=== PATIENT | male | born 1955 | race Caucasian/White ===

== ENCOUNTER → 2017-08-04 14:53 | Outpatient (CLI) | payer MEDICARE, MEDICAID, SELFPAY ==
--- NOTE | 2017-08-04 15:01 | XR_ITS ---
XR shoulder RT min 2V HISTORY: ITS.REASON: RT SHOULDER PAIN X 1 MONTH, NO INJURY ORDERING PHYSICIAN: Kenji James MD PATIENT AGE: 61 years COMPARISON: None FINDINGS: No fracture or dislocation. No lytic or blastic change. There is normal mineralization. There are mild osteoarthritic changes of the acromioclavicular joint. The glenohumeral joint has an unremarkable appearance. IMPRESSION: Mild osteoarthritic change of the acromioclavicular joint otherwise negative right shoulder
== END ==
PROVIDERS: PCP Family Medicine; Visit Provider Family Medicine
DX: M25.511 Pain in right shoulder (principal)
CPT/HCPCS: 73030

== ENCOUNTER 2017-12-22 15:59 | Inpatient (IN) ==
--- NOTE | 2017-12-22 16:09 | Emergency Department Note ---
ED Disposition Clinical Impression: COPD exacerbation Respiratory failure with hypoxia and hypercapnia Qualifiers: Chronicity: acute Qualified Code(s): J96.01 - Acute respiratory failure with hypoxia; J96.02 - Acute respiratory failure with hypercapnia Community acquired pneumonia Qualifiers: Laterality: unspecified laterality Qualified Code(s): J18.9 - Pneumonia, unspecified organism Disposition: Still a Patient Condition on Discharge: Fair Referrals: Kenji James MD [Primary Care Provider] - - Critical Care Critical Care Time: Yes Attestation: On , the high probability of a clinically significant, sudden or life threatening deterioration of the following system(s) required my full and direct attention, intervention and personal management. The time I documented below is in addition to time spent performing reported procedures but includes the following listed in this critical care notation. Total Critical Care Time: 35 Vital system(s) involved:: Respiratory Failure My critical care processes included: Assessment & monitoring of V/S, Initial and Re-exams, Data Review/Interpretation, Coordinating Care, Medication Orders and management, Documentation Medical Decision Making - Lanre Inquiry Pt receiving controlled substance: No Vital Signs: 12/22/17 16:01 12/22/17 16:27 12/22/17 16:54 Temperature 97.9 F Temperature Source Oral Pulse Rate [Right Radial] 67 72 Respiratory Rate 32 H 18 Blood Pressure [Right Arm] 129/44 129/44 Blood Pressure Mean [Right Arm] 72 72 Blood Pressure Source [Right Arm] Automatic Cuff Automatic Cuff Blood Pressure Position [Right Arm] Sitting Sitting 02 Sat by Pulse Oximetry 67 L 97 93 L Oxygen Delivery Method Nasal Cannula Non-Rebreather Oxygen Flow Rate (LPM) 7.5 15 35 12/22/17 17:17 12/22/17 17:35 12/22/17 18:16 Temperature 98.2 F Temperature Source Oral Pulse Rate [Right Radial] 73 68 Respiratory Rate 18 20 Blood Pressure [Right Arm] 136/79 135/80 Blood Pressure Mean [Right Arm] 98 98 Blood Pressure Source [Right Arm] Automatic Cuff Automatic Cuff Blood Pressure Position [Right Arm] Sitting Sitting 02 Sat by Pulse Oximetry 94 L 93 L 98 Oxygen Delivery Method Non-Rebreather BiPAP Oxygen Flow Rate (LPM) 15 40 - Lab Data Lab Results 12/22/17 16:05: WBC 5.6, RBC 5.52, Hgb 17.1, Hct 56.4 H, MCV 102.1 H, MCH 31.0, MCHC 30.4 L, RDW 13.7, Plt Count 126 L, MPV 9.1, Neut % (Auto) 69.7, Lymph % ( Auto) 20.7, [place] % (Auto) 8.1, Eos % (Auto) 0.9, Baso % (Auto) 0.5, Neut # (Auto ) 3.9, Lymph # (Auto) 1.2, [place] # (Auto) 0.5, Eos # (Auto) 0.1, Baso # (Auto) 0.0 12/22/17 16:05: Sodium 144, Potassium 4.4, Chloride 101, Carbon Dioxide 39 H, Anion Gap 8.4, BUN 10, Creatinine 0.89, Estimated Creat Clear 101, Estimated GFR 86, Est GFR ( Amer) 104, Glucose 128 H, Calcium 8.8, Total Bilirubin 1.0, AST 13 L, ALT 16, Alkaline Phosphatase 75, Total Protein 7.6, Albumin 3.5, Globulin 4.1 H, Albumin/Globulin Ratio 0.9 L 12/22/17 16:05: Lactic Acid 1.1 12/22/17 16:05: Total Creatine Kinase 48, CK-MB (CK-2) 0.7, CK-MB (CK-2) Rel Index 1.5, Troponin I < 0.02 12/22/17 16:05: B-Natriuretic Peptide 294 H 12/22/17 16:10: Specimen Source L. radial, O2 % 100% nrb, ABG pH 7.20 L*, ABG pCO2 96.9 H, ABG pO2 68.6 L, ABG HCO3 37.4 H, ABG Total CO2 40.3 H, ABG O2 Saturation 91, ABG Base Excess 9.4 H, Collin Test Acceptable 12/22/17 17:15: Specimen Source L. radial, O2 % 70% vapotherm, ABG pH 7.23 L*, ABG pCO2 91.5 H, ABG pO2 49.1 L, ABG HCO3 37.7 H, ABG Total CO2 40.5 H, ABG O2 Saturation 82 L*, ABG Base Excess 10.2 H, Collin Test Acceptable Result diagrams: 12/22/17 16:05 12/22/17 16:05 Orders (Tests/Meds): ED MEDICATIONS Generic Name Dose Route Start Last Admin Trade Name Freq PRN Reason Stop Dose Admin Azithromycin 500 mg/ Sodium 250 mls @ 250 mls/hr 12/22/17 17:15 Chloride IV 01/05/18 17:14 Q24H TITO Protocol Ceftriaxone Sodium 1 gm/ 50 mls @ 100 mls/hr 12/22/17 17:15 12/22/17 17:31 Sodium Chloride IV 01/05/18 17:14 100 mls/hr Q24H TITO Administration Protocol Discontinued Medications Generic Name Dose Route Start Last Admin Trade Name Freq PRN Reason Stop Dose Admin Albuterol/Ipratropium 3 ml 12/22/17 16:11 12/22/17 16:15 Duoneb 3ml Neb IH 12/22/17 16:12 3 ml ONCE ONE Administration Furosemide 40 mg 12/22/17 17:01 12/22/17 17:08 Lasix 40mg/4ml Vial IV 12/22/17 17:02 Not Given ONCE ONE Methylprednisolone Sodium Succinate 125 mg 12/22/17 16:14 12/22/17 16:15 Solu-Medrol 125mg/2ml Vial IV 12/22/17 16:15 125 mg ONCE ONE Administration Nitroglycerin 1 gm 12/22/17 17:01 12/22/17 17:08 Nitroglycerin 1 Inch Oint Udp TD 12/22/17 17:02 Not Given ONCE ONE ORDERS Category Date Time Status Blood Culture Stat Micro 12/22/17 16:08 Received Arterial Blood Gas Stat RT 12/22/17 16:08 Ordered - Radiology Data #1 Image(s): Chest Image Reviewed: Yes I have reviewed radiologist's interpretation COPD. Hyperexpansion. Mild interstitial coarsening most evident towards the bases reflecting mainly chronic changes, although difficult to exclude a subtle superimposed mild basilar interstitial infiltrate bilaterally. - ECG Data Tracing #1 EKG interpreted by Vitor Lui MD: Rhythm: sinus Rate: 75 [place]: Right superior Ectopy: Premature atrial contractions Conduction: Incomplete right bundle branch block ST Segment Changes: none T Wave Changes: none Q Waves: none No evidence of acute ischemia or injury Poor R-wave progression Right ventricular hypertrophy No prior EKGs available for comparison - Physician Consults Physician Consulted: Jacob Time: 17:30 Reason -: Admission Comment/Response: Agrees to admit the patient to the hospital. We discussed the patient's clinical information, including history, exam, laboratory and radiology results and ED course. Per hospital procedure, I will write temporary bridge inpatient orders on the patient. Specific orders requested by the admitting physician: Change to BiPAP if not improving on Vapotherm, continue nebulizer treatments, steroids, antibiotics Medical Decision Narrative: Reviewed prior chest CT which showed evidence of chronic bronchitis and emphysema, although patient says no formal diagnosis of COPD. General Adult HPI - General Chief complaint: Shortness of Breath/Dyspnea Stated complaint: SOA, LOW OXYGEN SAT Time Seen by Provider: 12/22/17 16:09 - History of Present Illness HPI narrative: Sent from Dr. James's office for hypoxia. Patient says he has been having shortness of breath for several days. Nonproductive cough. Chest pain with breathing and coughing, anterior chest. Denies leg pain or swelling. Denies fever. Denies hemoptysis. States he has not been wheezing. States he has not been diagnosed with emphysema or COPD, but thinks he probably has it. He is a smoker. Presented to his primary care physician's office where his pulse ox was found to be in the 40s. - Related Data Home Medications Medication Instructions Recorded Confirmed Allopurinol [Allopurinol 300mg 300 mg PO DAILY 12/22/17 12/22/17 tablet] Amlodipine Besylate [Amlodipine 10 mg PO DAILY 12/22/17 12/22/17 10mg Tab] Aspirin [Aspir 81] 81 mg PO DAILY 12/22/17 12/22/17 Levothyroxine Sodium 75 mcg PO DAILY 12/22/17 12/22/17 [Levothyroxine 75mcg (0.075mg) Tab] Lovastatin 40 mg PO HS 12/22/17 12/22/17 Medical Supply, Miscellaneous 1 each IH HS 12/22/17 12/22/17 [Oxygen Concentrator] Nitroglycerin [Nitrostat] 0.3 mg SL NEEDED PRN 12/22/17 12/22/17 Propranolol HCl [Propranolol HCl 60 mg PO DAILY 12/22/17 12/22/17 ER] Allergies Allergy/AdvReac Type Severity Reaction Status Date / Time No Known Drug Allergies Allergy Unknown Verified 12/22/17 16:12 [NKDA] [facility] History I have reviewed the patient's past medical history: Yes ROS Obtained: Yes All systems reviewed & no additional complaints - Constitutional Constitutional: Denies fever(s) - Cardiovascular Cardiovascular: Reports chest pain - Respiratory Respiratory: Yes cough, Yes non-productive cough, Yes dyspnea, No wheezing - Gastrointestinal Gastrointestingal: Denies: vomiting Physical Exam - General General appearance: alert, in distress (Respiratory) Comment: Mildly drowsy - Head Head exam: atraumatic, normocephalic, normal inspection - Eye Eye exam: Present: normal appearance, PERRL, EOMI - ENT ENT exam: Present: normal exam, normal oropharynx, mucous membranes moist, TM's normal bilaterally, normal external ear exam - Neck Neck exam: Present: normal inspection, full ROM, trachea midline. Absent: meningismus, lymphadenopathy - Chest Chest inspection: Present: normal inspection, symmetric chest wall rise. Absent : tenderness - Respiratory Respiratory exam: Present: respiratory distress, wheezes - Cardiovascular Cardiovascular exam: Present: normal rhythm, tachycardia. Absent: JVD - Abdominal Exam Abdominal exam: Present: soft, normal bowel sounds. Absent: distention, tenderness, guarding - Extremities Exam Extremities exam: Present: normal inspection, full ROM, normal capillary refill. Absent: calf tenderness - Back Exam Back exam: Present: normal inspection. Absent: tenderness - Neurological Exam Neurological exam: Present: alert, oriented X3 - Psychiatric Psychiatric exam: Present: normal affect, normal mood - Skin Skin exam: Present: warm, dry, intact, normal color - Lymphatic Lymphatic Findings: no adenopathy
[2017-12-22 16:14] LABS: ABG Base Excess 9.4 mmol/L (-2.4-2.3); ABG HCO3 37.4 mmhg (22.0-26.0); ABG Oxygen Saturation 91 % (90-100); ABG PO2 68.6 mmhg (80-100); ABG TCO2 40.3 mmhg (23-27)
[2017-12-22 16:17] LABS: Allen's Test ACCEPTABLE; Oxygen 100% NRB %
[2017-12-22 16:18] LABS: ABG PCO2 96.9 mmhg (35.0-45.0)
[2017-12-22 16:24] LABS: Basophils % 0.5 % (0.1-2.0); Eosinophils # 0.1 K/mm3 (0.0-0.4); Eosinophils % 0.9 % (0.1-12.0); Hematocrit 56.4 % (42.0-52.0); Hemoglobin 17.1 g/dL (14.1-18.0); Lymphocytes # 1.2 K/mm3 (0.7-4.5); Lymphocytes % 20.7 K/mm3 (10-50); Mean Corpuscular HGB Conc 30.4 g/dL (31.8-35.4); Mean Corpuscular Volume 102.1 fl (80-94); Mean Platelet Volume 9.1 fl (7.4-10.4); Monocytes # 0.5 K/mm3 (0.1-1.0); Monocytes % 8.1 % (1.7-9.3); Neutrophils # 3.9 K/mm3 (1.8-7.8); Neutrophils % 69.7 % (37.0-80.0); Platelet Count 126 K/mm3 (142-424); Red Blood Count 5.52 M/mm3 (4.60-6.20); Red Cell Distribution Width 13.7 % (11.5-17.5); White Blood Count 5.6 K/mm3 (4.8-10.8)
[2017-12-22 16:43] LABS: Albumin Level 3.5 gm/dL (3.4-5.0); Albumin/Globulin Ratio 0.9 (1.1-1.8); Anion Gap 8.4 mEq/L (5-15); Calcium 8.8 mg/dL (8.5-10.1); Globulin 4.1 gm/dl (1.3-3.2); Potassium 4.4 mmoL/L (3.5-5.1); Total Protein,Serum 7.6 gm/dL (6.4-8.2)
[2017-12-22 16:55] LABS: Creatine Kinase 48 U/L (39-308)
[2017-12-22 17:49] LABS: ABG Base Excess 10.2 mmol/L (-2.4-2.3); ABG HCO3 37.7 mmhg (22.0-26.0); ABG Oxygen Saturation 82 % (90-100); ABG PH 7.23 mmol/L (7.35-7.45); ABG TCO2 40.5 mmhg (23-27)
[2017-12-22 17:51] LABS: Allen's Test ACCEPTABLE; Oxygen 70% VAPOTHERM %
[2017-12-22 17:52] LABS: ABG PCO2 91.5 mmhg (35.0-45.0); ABG PO2 49.1 mmhg (80-100)
[2017-12-22 22:00] LABS: ABG Base Excess 11.8 mmol/L (-2.4-2.3); ABG HCO3 38.7 mmhg (22.0-26.0); ABG Oxygen Saturation 91 % (90-100); ABG PH 7.27 mmol/L (7.35-7.45); ABG PO2 60.8 mmhg (80-100); ABG TCO2 41.4 mmhg (23-27)
[2017-12-22 22:05] LABS: Allen's Test Acceptable; Oxygen 55% BIPAP %
[2017-12-22 22:09] LABS: ABG PCO2 87.1 mmhg (35.0-45.0)
--- NOTE | 2017-12-23 08:22 | History & Physical Report ---
*Admission Date: 12/23/17 *Chief complaint: Short of breath *History of present illness: Mr. Armijo is a 62-year-old white male with a history of COPD. He was brought to the office by his family in a wheelchair yesterday acutely ill with shortness of breath and altered mental status. When he arrived at the office, he was somnolent, ashen in color, and had an O2 saturation of 46% on room air. He was immediately placed on nasal oxygen and his O2 saturation came up to the mid 70s. At this point he was a bit more alert and conversant and answered questions. He and his family reported a 4-5 day history of increasing congestion and shortness of breath with slightly productive cough. No complaints of fever, chest pain, or palpitations. He continues to smoke a pack and a half of cigarettes a day and has a history of COPD and wears oxygen at night. It was apparent that he needed more in-depth evaluation and he was transported from the office to the emergency room. In the emergency room he was worked up with appropriate labs and chest x-ray. On his blood gas he was hypoxic and hypercapnic with respiratory acidosis. His chest x-ray showed abundant chronic changes with likely underlying pneumonia. He was initially placed on a Vapotherm and later transitioned to BiPAP when he remained hypoxic. He was subsequent admitted with a working diagnosis of acute respiratory failure, exacerbation of COPD, and pneumonia. At the time of my exam this morning he is wearing his BiPAP. He is more alert and answering questions. He would like to go home. He states he rested fairly well through the night. He feels hungry. [facility] History Medical History: Reports:: Cancer (skin), Coronary Artery Disease, Deep Vein Thrombosis, Hyperlipidemia, Hypertension, Lung Disease (COPD), Myocardial Infarction Denies:: Diabetes Mellitus Type 1, Diabetes Mellitus Type 2, MRSA Other Medical History: Reports: Cataracts, Hypothyroidism Laterality Cases: Bilateral: Cataract Other Surgeries: Yes: Cardiac Catheterization, Colonoscopy, Skin Cancer Excision Amputation: No Fractures: No - *Social History Educational Level: Completed GED/General Educational Development Smoking Status: Current every day smoker Tobacco Type: cigarettes (1.5 PPD) Alcohol Intake: former Occupational Status: retired, disabled Housing: house Household Members: spouse - Psychiatric History Expresses thoughts of harming self/others: None Suicide Plan Description: No Plan *Family Hx:: Heart Attack, Hypertension Review of Systems - Constitutional Denies anorexia, Denies chills, Denies fever(s), Denies weight loss - Eyes Denies change in vision - ENT Denies abnormal hearing, Denies dizziness, Denies difficulty swallowing, Denies sinus pressure, Denies dizziness - *Cardiovascular Reports shortness of breath, Reports shortness of breath with activity, Denies chest pain, Denies irregular heart rhythm - *Respiratory Reports change in phlegm color, Reports chest congestion, Reports cough, Reports shortness of breath, Reports snoring - *Gastrointestinal Denies abdominal pain, Denies change in bowel habits, Denies nausea, Denies vomiting - *Genitourinary Denies difficulty urinating, Denies urinary frequency - *Musculoskeletal Denies joint pain, Denies body aches - *Neurologic Reports abnormal speech, Reports confusion - Psychiatric Denies anxiety, Denies behavioral changes - Hematologic/Lymphatic Denies easy bruising Meds Home Medications Medication Instructions Recorded Confirmed Type Allopurinol [Allopurinol 300mg 300 mg PO DAILY 12/22/17 12/22/17 History tablet] Amlodipine Besylate [Amlodipine 10 mg PO DAILY 12/22/17 12/22/17 History 10mg Tab] Aspirin [Aspir 81] 81 mg PO DAILY 12/22/17 12/22/17 History Levothyroxine Sodium 75 mcg PO DAILY 12/22/17 12/22/17 History [Levothyroxine 75mcg (0.075mg) Tab] Lovastatin 40 mg PO HS 12/22/17 12/22/17 History Medical Supply, Miscellaneous 1 each [facility] 12/22/17 12/22/17 History [Oxygen Concentrator] Propranolol HCl [Propranolol HCl 60 mg PO DAILY 12/22/17 12/22/17 History ER] Nitroglycerin [Nitrostat 0.4mg SL 0.4 mg SL Q5MINP PRN 12/23/17 12/23/17 History Tablet] Allergies Allergy/AdvReac Type Severity Reaction Status Date / Time No Known Drug Allergies Allergy Unknown Verified 12/22/17 16:12 [NKDA] Exam Vital signs and Labs for Last 24 Hours: Temp Pulse Resp BP Pulse Ox 97.5 F L 64 16 104/63 95 12/23/17 08:00 12/23/17 06:55 12/23/17 06:00 12/23/17 06:00 12/23/17 08:00 Laboratory Results - last 24 hr 12/22/17 16:05: WBC 5.6, RBC 5.52, Hgb 17.1, Hct 56.4 H, MCV 102.1 H, MCH 31.0, MCHC 30.4 L, RDW 13.7, Plt Count 126 L, MPV 9.1, Neut % (Auto) 69.7, Lymph % ( Auto) 20.7, [place] % (Auto) 8.1, Eos % (Auto) 0.9, Baso % (Auto) 0.5, Neut # (Auto ) 3.9, Lymph # (Auto) 1.2, [place] # (Auto) 0.5, Eos # (Auto) 0.1, Baso # (Auto) 0.0 12/22/17 16:05: Sodium 144, Potassium 4.4, Chloride 101, Carbon Dioxide 39 H, Anion Gap 8.4, BUN 10, Creatinine 0.89, Estimated Creat Clear 101, Estimated GFR 86, Est GFR ( Amer) 104, Glucose 128 H, Calcium 8.8, Total Bilirubin 1.0, AST 13 L, ALT 16, Alkaline Phosphatase 75, Total Protein 7.6, Albumin 3.5, Globulin 4.1 H, Albumin/Globulin Ratio 0.9 L 12/22/17 16:05: Lactic Acid 1.1 12/22/17 16:05: Total Creatine Kinase 48, CK-MB (CK-2) 0.7, CK-MB (CK-2) Rel Index 1.5, Troponin I < 0.02 12/22/17 16:05: B-Natriuretic Peptide 294 H 12/22/17 16:10: Specimen Source L. radial, O2 % 100% nrb, ABG pH 7.20 L*, ABG pCO2 96.9 H, ABG pO2 68.6 L, ABG HCO3 37.4 H, ABG Total CO2 40.3 H, ABG O2 Saturation 91, ABG Base Excess 9.4 H, Collin Test Acceptable 12/22/17 17:15: Specimen Source L. radial, O2 % 70% vapotherm, ABG pH 7.23 L*, ABG pCO2 91.5 H, ABG pO2 49.1 L, ABG HCO3 37.7 H, ABG Total CO2 40.5 H, ABG O2 Saturation 82 L*, ABG Base Excess 10.2 H, [place] Test Acceptable 12/22/17 21:58: Specimen Source Right radial, O2 % 55% bipap, ABG pH 7.27 L, ABG pCO2 87.1 H, ABG pO2 60.8 L, ABG HCO3 38.7 H, ABG Total CO2 41.4 H, ABG O2 Saturation 91, ABG Base Excess 11.8 H, Collin Test Acceptable I & O for Last 24 hours: Intake & Output 12/20/17 12/21/17 12/22/17 12/23/17 11:59 11:59 11:59 11:59 Intake Total Output Total 400 / 400 Balance -378 / -378 Weight 227 lb 1 oz Microbiology Reports for the Last 24 Hours: Microbiology 12/23/17 05:05 Sputum - Expectorated Sputum Gram Stain - Final Narrative: He is lying comfortably in bed wearing his BiPAP. Appears in no acute distress. Answers questions appropriately. HEENT shows a creatinine to be atraumatic and normocephalic. TMs are unremarkable. Mild nasal congestion. Oropharynx shows slightly dry mucous membranes. Neck is supple with no thyromegaly, adenopathy, or bruits. Chest reveals coarse breath sounds which are generally diminished. There are bibasilar rhonchi. Few faint wheezes. Heart is distant but regular with no murmurs. Abdomen obese, soft, and nondistended. No unusual masses or tenderness. Extremities show no edema. H&P: Result - Labs Labs: Short CBC 12/22/17 Range/Units 16:05 WBC 5.6 (4.8-10.8) K/mm3 Hgb 17.1 (14.1-18.0) g/dL Hct 56.4 H (42.0-52.0) % Plt Count 126 L (142-424) K/mm3 BMP 12/22/17 16:05 Sodium 144 Potassium 4.4 Chloride 101 Carbon Dioxide 39 H BUN 10 Creatinine 0.89 Glucose 128 H Calcium 8.8 Cardiac Enzymes 12/22/17 Range/Units 16:05 Total Creatine Kinase 48 (39-308) U/L CK-MB (CK-2) 0.7 (0.0-3.6) ng/ml Troponin I < 0.02 (0.00-0.06) ng/ml Liver Function 12/22/17 Range/Units 16:05 Total Bilirubin 1.0 (0.2-1.0) mg/dL AST 13 L (15-37) U/L ALT 16 (12-78) U/L Alkaline Phosphatase 75 (46-116) U/L Albumin 3.5 (3.4-5.0) gm/dL Assessment and Plan (1) Respiratory failure with hypoxia and hypercapnia Current visit: Yes Status: Acute Qualifiers: Chronicity: acute Qualified Code(s): J96.01 - Acute respiratory failure with hypoxia; J96.02 - Acute respiratory failure with hypercapnia Category: Medical Code(s): J96.91 - Respiratory failure, unspecified with hypoxia; J96.92 - Respiratory failure, unspecified with hypercapnia (2) Community acquired pneumonia Current visit: Yes Status: Acute Qualifiers: Laterality: unspecified laterality Qualified Code(s): J18.9 - Pneumonia, unspecified organism Category: Medical Code(s): J18.9 - Pneumonia, unspecified organism (3) COPD exacerbation Current visit: Yes Status: Acute Category: Medical Code(s): J44.1 - Chronic obstructive pulmonary disease with (acute) exacerbation (4) Altered mental status Current visit: Yes Status: Acute Category: Medical Code(s): R41.82 - Altered mental status, unspecified (5) Hypothyroidism Current visit: Yes Status: Acute Category: Medical Code(s): E03.9 - Hypothyroidism, unspecified (6) Hypertension Current visit: Yes Status: Acute Category: Medical Code(s): I10 - Essential (primary) hypertension (7) Tobacco abuse disorder Current visit: Yes Status: Acute Category: Medical Code(s): Z72.0 - Tobacco use (8) History of ASCVD Current visit: Yes Status: Acute Category: Medical Code(s): Z86.79 - Personal history of other diseases of the circulatory system - Assessment and plan all Dx Assessment and Plan for all problems:: Patient has been admitted and placed on BiPAP for his acute respiratory failure. He is tolerating the BiPAP reasonably well. O2 sats have improved. ABG is improving as well. He has empirically been started on IV Rocephin and Zithromax pending results of sputum cultures. He has also been placed on oral steroids. He will be continued on his maintenance medications from home. Additional workup and treatment will be as indicated by his hospital course.
--- NOTE | 2017-12-23 08:40 | Pharmacy Consult Notes ---
[facility] Pharmacy VTE Monitoring - Patient Demographics Admission date: 12/22/17 Report Date: 12/23/17 Time: 08:40 Allergies/Adverse Reactions: Patient Allergies No Known Drug Allergies [NKDA] Allergy (Unknown, Verified 12/22/17 16:12) Height: 1.75 m Weight: 102.994 kg Patient Problems: Current Active Problems Respiratory failure with hypoxia and hypercapnia (Acute) COPD exacerbation (Acute) Community acquired pneumonia (Acute) - VTE Risk Labs: VTE Related Lab Results Hgb 17.1 g/dL (14.1-18.0) 12/22/17 16:05 Hct 56.4 % (42.0-52.0) H 12/22/17 16:05 Plt Count 126 K/mm3 (142-424) L 12/22/17 16:05 BUN 10 mg/dL (7-18) 12/22/17 16:05 Creatinine 0.89 mg/dL (0.70-1.30) 12/22/17 16:05 Estimated Creat Clear 101 mL/min (0-300) 12/22/17 16:05 VTE Score: 7 VTE Risk Level: Moderate Risk - Prophylaxis VTE Prophylaxis Ordered?: Yes Types of VTE Prophylaxis: TEDS Knee High Location of Applied Device: Bilateral Lower Extremeties
[2017-12-24 05:53] LABS: Basophils % 0.2 % (0.1-2.0); Eosinophils # 0.1 K/mm3 (0.0-0.4); Eosinophils % 1.5 % (0.1-12.0); Hematocrit 54.2 % (42.0-52.0); Hemoglobin 16.2 g/dL (14.1-18.0); Lymphocytes # 0.8 K/mm3 (0.7-4.5); Lymphocytes % 10.6 K/mm3 (10-50); Mean Corpuscular HGB Conc 29.9 g/dL (31.8-35.4); Mean Corpuscular Hemoglobin 30.6 pg (27.0-31.2); Mean Corpuscular Volume 102.2 fl (80-94); Mean Platelet Volume 8.9 fl (7.4-10.4); Monocytes # 0.3 K/mm3 (0.1-1.0); Monocytes % 4.3 % (1.7-9.3); Neutrophils % 83.5 % (37.0-80.0); Platelet Count 130 K/mm3 (142-424); Red Blood Count 5.31 M/mm3 (4.60-6.20); Red Cell Distribution Width 13.9 % (11.5-17.5); White Blood Count 7.2 K/mm3 (4.8-10.8)
[2017-12-24 05:57] LABS: Anion Gap 3.9 mEq/L (5-15); Calcium 8.9 mg/dL (8.5-10.1); Potassium 4.9 mmoL/L (3.5-5.1)
--- NOTE | 2017-12-24 08:55 | Progress Note ---
Internal Medicine - PN: Subj *Date: 12/24/17 *Time: 08:51 Interval history: He is feeling much better and eager to go home. His granddaughter is having birthday republican today. He slept fairly well last night and did not require use of the BiPAP. He has been maintained on 4 L of nasal oxygen. O2 sat dropped to 89% on room air. He denies cough. He has been up about the room and tolerating activity okay. Exam Vital signs and Labs for Last 24 Hours: Temp Pulse Resp BP Pulse Ox 97.7 F 48 L 16 108/48 92 L 12/24/17 08:00 12/24/17 08:00 12/24/17 08:00 12/24/17 08:00 12/24/17 08:00 Laboratory Results - last 24 hr 12/24/17 05:40: WBC 7.2 D, RBC 5.31, Hgb 16.2, Hct 54.2 H, MCV 102.2 H, MCH 30.6, MCHC 29.9 L, RDW 13.9, Plt Count 130 L, MPV 8.9, Neut % (Auto) 83.5 H, Lymph % (Auto) 10.6, [place] % (Auto) 4.3, Eos % (Auto) 1.5, Baso % (Auto) 0.2, Neut # (Auto) 6.0, Lymph # (Auto) 0.8, [place] # (Auto) 0.3, Eos # (Auto) 0.1, Baso # (Auto) 0.0 12/24/17 05:40: Sodium 144, Potassium 4.9, Chloride 106, Carbon Dioxide 39 H, Anion Gap 3.9 L, BUN 18 D, Creatinine 0.80, Estimated Creat Clear 109, Estimated GFR 97, Est GFR ( Amer) 118, Glucose 175 H, Calcium 8.9 I & O for Last 24 hours: Intake & Output 12/21/17 12/22/17 12/23/17 12/24/17 11:59 11:59 11:59 11:59 Intake Total 660 / 660 Output Total 400 / 400 425 / 425 Balance -378 / -378 235 / 235 Weight 227 lb 1 oz Microbiology Reports for the Last 24 Hours: Microbiology 12/23/17 05:05 Sputum - Expectorated Sputum Gram Stain - Final Narrative: He is alert and oriented and in no distress. Color is normal. Chest revealed generally diminished breath sounds with only an occasional wheeze. No rales. Heart is distant but regular with no murmurs. Extremities no edema. Assessment and Plan (1) Respiratory failure with hypoxia and hypercapnia Current visit: Yes Status: Acute Qualifiers: Chronicity: acute Qualified Code(s): J96.01 - Acute respiratory failure with hypoxia; J96.02 - Acute respiratory failure with hypercapnia Category: Medical Code(s): J96.91 - Respiratory failure, unspecified with hypoxia; J96.92 - Respiratory failure, unspecified with hypercapnia (2) Community acquired pneumonia Current visit: Yes Status: Acute Qualifiers: Laterality: unspecified laterality Qualified Code(s): J18.9 - Pneumonia, unspecified organism Category: Medical Code(s): J18.9 - Pneumonia, unspecified organism (3) COPD exacerbation Current visit: Yes Status: Acute Category: Medical Code(s): J44.1 - Chronic obstructive pulmonary disease with (acute) exacerbation (4) Altered mental status Current visit: Yes Status: Acute Category: Medical Code(s): R41.82 - Altered mental status, unspecified (5) Hypothyroidism Current visit: Yes Status: Acute Category: Medical Code(s): E03.9 - Hypothyroidism, unspecified (6) Hypertension Current visit: Yes Status: Acute Category: Medical Code(s): I10 - Essential (primary) hypertension (7) Tobacco abuse disorder Current visit: Yes Status: Acute Category: Medical Code(s): Z72.0 - Tobacco use (8) History of ASCVD Current visit: Yes Status: Acute Category: Medical Code(s): Z86.79 - Personal history of other diseases of the circulatory system - Assessment and plan all Dx Assessment and Plan for all problems:: He is clearly much improved. Repeat chest x-ray yesterday showed improvement. As noted he is quite anxious to go home. I initially planned to wean his oxygen and steroids today. He has home oxygen and duo nebs at home. I have turned his oxygen down to 2 L and ask him to get up and ambulate this morning. We will switch to oral steroids. If he is doing well by early afternoon, he may be able to be discharged.
[2017-12-24 12:31] VITALS: BP 115/54
--- NOTE | 2017-12-24 15:36 | Discharge Summary ---
General - General Admission date:: 12/22/17 <Kenji James - 01/13/18 23:02> 12/22/17 <Chela Braga - 12/24/17 15:37> Discharge date: 12/24/17 <Chela Braga - 12/24/17 15:37> HPI HPI: Mr. Armijo is a 62-year-old white male with a history of COPD. He was brought to the office by his family in a wheelchair acutely ill with shortness of breath and altered mental status. When he arrived at the office, he was somnolent, ashen in color, and had an O2 saturation of 46% on room air. He was immediately placed on nasal oxygen and his O2 saturation came up to the mid 70s. At this point he was a bit more alert and conversant and answered questions. He and his family reported a 4-5 day history of increasing congestion and shortness of breath with slightly productive cough. No complaints of fever, chest pain, or palpitations. He continued to smoke a pack and a half of cigarettes a day with a noted history of COPD and wearing oxygen at night. It was apparent that he needed more in-depth evaluation and he was transported from the office to the emergency room. In the emergency room he was worked up with appropriate labs and chest x-ray. On his blood gas he was hypoxic and hypercapnic with respiratory acidosis. His chest x-ray showed abundant chronic changes with likely underlying pneumonia. He was initially placed on a Vapotherm and later transitioned to BiPAP when he remained hypoxic. He was subsequent admitted with a working diagnosis of acute respiratory failure, exacerbation of COPD, and pneumonia. At the time exam the following AM by Dr. James he was wearing his BiPAP. He was more alert and answering questions. He wanted to go home. He stated that he had rested fairly well through the night. He felt hungry. <Chela Braga - 12/24/17 16:00> Hospital Course Hospital Course: Patient was admitted and placed on BiPAP for his acute respiratory failure. He tolerated the BiPAP reasonably well. O2 sats and ABG's improved. He was empirically started on IV Rocephin and Zithromax pending results of sputum cultures. He was also placed on steroids and continued on his maintenance medications from home. He was weaned from BIPAP and placed on O2 at 4 LPM and maintained adequate O2 sats. On 12/24/17 he felt much better and was eager to go home. His granddaughter was having a birthday constitution party. He had slept fairly well during the night and did not require use of the BiPAP. He was being maintained on 4 L of nasal oxygen. O2 sat dropped to 89% on room air. Oxygen was further decreased to 2 LPM which he tolerated well. He denied cough. He had been up about the room and tolerating activity. CXR had improved. He was felt to be stable to be discharged to home on this date. He was to continue with oral antibiotic, nebs and O2 which he had at home. He was to followup with Dr. James in 2 days. <Chela Braga - 12/24/17 16:00> Objective Vital signs: Temp Pulse Resp BP Pulse Ox 97.6 F 70 16 115/54 90 L 12/24/17 12:00 12/24/17 12:00 12/24/17 12:00 12/24/17 12:00 12/24/17 12:00 <Kenji James - 01/13/18 23:02> Temp Pulse Resp BP Pulse Ox 97.6 F 70 16 115/54 90 L 12/24/17 12:00 12/24/17 12:00 12/24/17 12:00 12/24/17 12:12/24/17 12:00 He was alert and oriented and in no distress. Color was normal. Chest revealed generally diminished breath sounds with only an occasional wheeze. No rales. Heart was distant but regular with no murmurs. Extremities without edema. <Chela Braga - 12/24/17 16:01> Results Completed studies during hospitalization [Text1]: 12/22/17 IMPRESSION COPD. Hyperexpansion Mild interstitial coarsening most evident towards the bases reflecting mainly chronic changes although difficult to exclude a subtle superimposed mild basilar interstitial infiltrate bilaterally. 12/23/17 repeat CXR IMPRESSION: Improvement since yesterday CXR. The lungs appear better expanded and clearer, since yesterday, but I still question question and remain suspect of a subtle mild bibasilar infiltrate airspace disease superimposed upon the chronic basilar changes..., Particularly at right base <Chela Braga 12/24/17 15:44> Pending studies at discharge: Blood and sputum cultures pending at discharge <BragaSoniyaChela 12/24/17 15:44> Labs on day of discharge: Labs from last 24 hours 12/24/17 12/24/17 05:40 05:40 WBC 7.2 D RBC 5.31 Hgb 16.2 Hct 54.2 H MCV 102.2 H MCH 30.6 MCHC 29.9 L RDW 13.9 Plt Count 130 L MPV 8.9 Neut % (Auto) 83.5 H Lymph % (Auto) 10.6 [place] % (Auto) 4.3 Eos % (Auto) 1.5 Baso % (Auto) 0.2 Neut # (Auto) 6.0 Lymph # (Auto) 0.8 [place] # (Auto) 0.3 Eos # (Auto) 0.1 Baso # (Auto) 0.0 Sodium 144 Potassium 4.9 Chloride 106 Carbon Dioxide 39 H Anion Gap 3.9 L BUN 18 D Creatinine 0.80 Estimated Creat Clear 109 Estimated GFR 97 Est GFR ( Amer) 118 Glucose 175 H Calcium 8.9 <Chela Braga 12/24/17 15:44> DS: Diagnosis - Discharge Diagnosis (1) Respiratory failure with hypoxia and hypercapnia Status: Acute (2) Community acquired pneumonia Status: Acute (3) COPD exacerbation Status: Acute (4) Altered mental status Status: Acute (5) Hypothyroidism Status: Acute (6) Hypertension Status: Acute (7) Tobacco abuse disorder Status: Acute (8) History of ASCVD Status: Acute <Kenji James - 01/13/18 23:02> (1) Respiratory failure with hypoxia and hypercapnia Status: Acute (2) Community acquired pneumonia Status: Acute (3) COPD exacerbation Status: Acute (4) Altered mental status Status: Acute (5) Hypothyroidism Status: Acute (6) Hypertension Status: Acute (7) Tobacco abuse disorder Status: Acute (8) History of ASCVD Status: Acute <Chela Braga 12/24/17 16:00> Discharge Plan - Patient Discharge Instructions ACTIVITY: Limited activity <Chela Braga 12/24/17 15:37> DIET: low salt diet <Chela Braga - 12/24/17 15:37> Additional Instructions: follow up with md. monitor breathing status take meds as ordered go to er with any new or worsening symptoms <Kenji James - 01/13/18 23:02> Patient Instructions: Pneumonia-Adult, Chronic Obstructive Pulmonary Disease, Respiratory Failure <Kenji James - 01/13/18 23:02> Forms: <Kenji James - 01/13/18 23:02> - Follow up Plan Follow up with: Kenji James MD [Primary Care Provider] - 2 days < Kenji James - 01/13/18 23:02> Disposition: Home, Self-Care <Kenji James - 01/13/18 23:02> Home Medications: Home Medications Medication Instructions Recorded Confirmed Type Allopurinol [Allopurinol 300mg 300 mg PO DAILY 12/22/17 12/22/17 History tablet] Amlodipine Besylate [Amlodipine 10 mg PO DAILY 12/22/17 12/22/17 History 10mg Tab] Aspirin [Aspir 81] 81 mg PO DAILY 12/22/17 12/22/17 History Levothyroxine Sodium 75 mcg PO DAILY 12/22/17 12/22/17 History [Levothyroxine 75mcg (0.075mg) Tab] Lovastatin 40 mg PO HS 12/22/17 12/22/17 History Medical Supply, Miscellaneous 1 each IH HS 12/22/17 12/22/17 History [Oxygen Concentrator] Propranolol HCl [Propranolol HCl 60 mg PO DAILY 12/22/17 12/22/17 History ER] Nitroglycerin [Nitrostat 0.4mg SL 0.4 mg SL Q5MINP PRN 12/23/17 12/23/17 History Tablet] <Kenji James - 01/13/18 23:02> Prescriptions/Medication Reconciliation: New predniSONE [Deltasone 10mg tablet] 10 mg PO DIRECTED #21 tab cefUROXime axetil [Ceftin 500mg Tab (GEQ)] 500 mg PO BID #14 tab Continue Medical Supply, Miscellaneous [Oxygen Concentrator] 1 each IH HS Levothyroxine Sodium [Levothyroxine 75mcg (0.075mg) Tab] 75 mcg PO DAILY Propranolol HCl [Propranolol HCl ER] 60 mg PO DAILY Lovastatin 40 mg PO HS Aspirin [Aspir 81] 81 mg PO DAILY Allopurinol [Allopurinol 300mg tablet] 300 mg PO DAILY Nitroglycerin [Nitrostat 0.4mg SL Tablet] 0.4 mg SL Q5MINP PRN PRN Reason: Chest Pain Amlodipine Besylate [Amlodipine 10mg Tab] 10 mg PO DAILY <Kenji James - 01/13/18 23:02> - Additional Information Additional Information: Concur with plan for discharge. <Kenji James - 01/13/18 23:02>
== END 2017-12-24 12:44 | disposition home or self-care (01) ==
LOC: ER 15:59 → 2ND 18:39
PROVIDERS: ADMIT Family Medicine; ATTEND Family Medicine
CPT/HCPCS: 36415; 71010; 71045; 80048; 80053; 82550; 82553; 82803; 83605; 83880; 84484; 85025; 87040; 87070; 87205; 93005; 94640; 94761; 96365; 96367; 96375; 99285; J0456

== ENCOUNTER → 2018-05-18 15:08 | Outpatient (CLI) | payer MEDICARE, MEDICAID, SELFPAY ==
--- NOTE | 2018-05-18 15:11 | CT_ITS ---
CT lung screening EXAM: CT LUNG LOW DOSE WO CONTRAST HISTORY: 50 pack year smoking history, asymptomatic for lung cancer ITS.REASON: HX TOBACCO USE ORDERING PHYSICIAN: Kenji James MD PATIENT AGE: 62 years COMPARISON: 11/18/2016 TECHNIQUE: The exam was performed on a GE Light Speed [address] scanner using 2.90 mGy CTDI. A low dose helical CT CHEST was performed on a multi-detector scanner. All CT scans at the facility use one or more dose reduction, viz: automated exposure control, ma/kV adjustment per patient size (including targeted exams where dose is matched to indication, i.e. head), or iterative reconstruction technique. The LDCT was performed in a facility that meets the criteria for the screening program. Data regarding this exam was submitted to ACR which is an approved registry. The order for this exam indicates that it came as a result of a lung cancer screening counseling shard decision-making visit that included all the elements required of such a visit including smoking cessation. The radiologist interpreting this exam meets the CMS criteria for the LDCT lung cancer screening program. The exam is reported using the Lung-RADS classification scale and reported to the ACR registry. NOTE: This study was performed for the specific purposes of lung cancer screening and is not an alternative to diagnostic chest CT. RADIATION DOSE: CTDI vol(CT dose Index-volume) = 2.90mG DLP (Dose Length Product) = 115.94 mGcm FINDINGS: Previously noted parenchymal opacity in the right apex medially is no longer apparent and may be due to areas of atelectasis. 3 mm noncalcified nodule left upper lobe unchanged. No new nodules. There are coronary artery calcifications. Small nodes are present in the mediastinum. There is an ill-defined 7 mm isodensity in the hepatic dome nonspecific. IMPRESSION: 1. Lung RADS Category: 2, benign 2. Other findings: Coronary artery calcifications, 7 mm isodensity hepatic dome nonspecific RECOMMENDATIONS: 12 month LDCT follow-up
== END ==
PROVIDERS: PCP Family Medicine; Visit Provider Family Medicine
DX: Z12.2 Encounter for screening for malignant neoplasm of respiratory organs (principal); Z87.891 Personal history of nicotine dependence

== ENCOUNTER → 2019-05-20 14:37 | Outpatient (CLI) | payer MEDICARE, SELFPAY ==
--- NOTE | 2019-05-20 14:40 | CT_ITS ---
PROCEDURE: CT LUNG SCREENING CLINICAL INDICATION: CURRENT TOBACOO USE Fifty pack-year smoking history, asymptomatic for lung cancer COMPARISON: LUNGSCREEN CT lung screening from 05/18/2018 TECHNIQUE: The exam was performed on a GE phorus Speed [address] scanner using 2.90 mGy CTDI. A low dose helical CT CHEST was performed on a multi-detector scanner. All CT scans at the facility use one or more dose reduction, viz: automated exposure control, ma/kV adjustment per patient size (including targeted exams where dose is matched to indication, i.e. head), or iterative reconstruction technique. The LDCT was performed in a facility that meets the criteria for the screening program. Data regarding this exam was submitted to ACR which is an approved registry. The order for this exam indicates that it came as a result of a lung cancer screening counseling shard decision-making visit that included all the elements required of such a visit including smoking cessation. The radiologist interpreting this exam meets the CMS criteria for the LDCT lung cancer screening program. The exam is reported using the Lung-RADS classification scale and reported to the ACR registry. NOTE: This study was performed for the specific purposes of lung cancer screening and is not an alternative to diagnostic chest CT. RADIATION DOSE: CTDI vol(CT dose Index-volume) = 2.90mG DLP (Dose Length Product) = 109.68 mGcm FINDINGS: COPD. Scattered areas of scarring. No suspicious nodules are evident. Scattered small nodes are present in the mediastinum there are coronary artery calcifications the the OTHER FINDINGS: No other pertinent findings evident. IMPRESSION: Lung rads category 2 benign findings. Recommend [address] Dictated by: Collin Priest MD 05/20/2019 16:42 Electronically signed by Collin Priest MD in [place] 05/26/2019 07:42
== END ==
PROVIDERS: PCP Family Medicine; Visit Provider Family Medicine
DX: Z87.891 Personal history of nicotine dependence (principal); Z12.2 Encounter for screening for malignant neoplasm of respiratory organs

== ENCOUNTER 2020-08-02 12:45 | Inpatient (IN) | payer MEDICARE, SELFPAY ==
[2020-08-02] VITALS (15 sets, daily range): BP systolic 126–136; BP diastolic 65–78; PULSE 55–88; RESP 16–28; TEMP 36.6–37.2; O2SAT 56–96; BMI 32.6; BMI 32.4
--- NOTE | 2020-08-02 12:46 | PC.NURSE ---
PATIENT REGISTERED FOR [facility] FOR SOA. IN WAITING ROOM PATIENT APPEARED DUSKY IN APPEARANCE. ASSESSED TO HAVE PULSE OX OF 45% RA AND PULSE OF 94, RR 29. PATIENT TAKEN TO ER, REPORT/ASSESSMENT GIVEN TO Carolyne GARCIA RN
--- NOTE | 2020-08-02 13:03 | ECG_ITS ---
APPROVED REPORT Exam: Resting ECG HR:63 bpm ECG Measurements Heart Rate 63 AXES ND 118 P 46 QRSd 86 QRS -89 QT 384 T 51 QTc 392 Conclusion Sinus rhythm with premature supraventricular complexes Left axis deviation RSR' or QR pattern in V1 suggests right ventricular conduction delay Septal infarct, age undetermined Abnormal ECG Electronically signed by : Clark Garland, 08/03/2020 19:38:57
--- NOTE | 2020-08-02 13:04 | XR_ITS ---
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 There is accentuation markings towards the lung bases bilaterally. Right slightly more so than left but of there are some Ruth B, septal lines seen along the lateral aspect of the left lung base towards left CP angle. I suspect we are mainly viewing mild congestive failure changes superimposed upon chronic features.. Difficult to exclude additional early pneumonic infiltrate right base but but I believe this less likely when compared to prior studies There is also a small right pleural effusion with definite blunting along the right CP angle and scant fluid extending along lateral right CP angle. Only questionable blunting left CP angle. The heart is mildly enlarged. The vaishnavi and mediastinal structures appears satisfactory and stable. cafeteria monitor leads in place but mild hyperexpansion towards the lung apices may reflect some chronic lung changes/emphysematous changes. Chest wall unremarkable IMPRESSION: Suspect mild CHF yields mild interstitial edema accentuating interstitial lung markings towards lung the bases bilaterally. Ruth B, septal lines evident left base.. Right pleural effusion with definite blunting at right CP angle also noted. Question scant blunting left CP angle but Mild cardiomegaly. (Difficult to totally exclude additional infiltrate developing at right lung base-but favor appearance mainly reflects a mild CHF and small right pleural effusion) . Dictated by: Shayan Ortega MD 08/02/2020 14:46 Shayan Ortega MD in [place] 08/02/2020 14:46
[2020-08-02 13:16] LABS: ABG Base Excess 4.6 mmol/L (-2.4-2.3); ABG HCO3 31.8 mmhg (22.0-26.0); ABG Oxygen Saturation 94 % (90-100); ABG PH 7.25 mmol/L (7.35-7.45); ABG PO2 67.1 mmhg (80-100); ABG TCO2 34.1 mmhg (23-27)
[2020-08-02 13:18] LABS: Allen's Test Acceptable; Oxygen 100% NRB %; Source Right Radial
[2020-08-02 13:21] LABS: ABG PCO2 73.9 mmhg (35.0-45.0)
[2020-08-02 13:23] LABS: Basophils # 0.1 K/mm3 (0-0.2); Lymphocytes # 1.4 K/mm3 (0.7-4.5); Mean Platelet Volume 9.5 fl (7.4-10.4); Monocytes # 0.4 K/mm3 (0.1-1.0); Red Cell Distribution Width 14.6 % (11.5-17.5)
[2020-08-02 13:28] LABS: Basophils % 1.4 % (0.1-2.0); Hematocrit 59.7 % (42.0-52.0); Lymphocytes % 32.8 % (10-50); Mean Corpuscular HGB Conc 31.3 g/dL (31.8-35.4); Mean Corpuscular Hemoglobin 32.3 pg (27.0-31.2); Mean Corpuscular Volume 103.3 fl (80-94); Monocytes % 9.8 % (1.7-9.3); Neutrophils # 2.3 K/mm3 (1.8-7.8); Platelet Count 110 K/mm3 (142-424); Red Blood Count 5.78 M/mm3 (4.60-6.20); White Blood Count 4.2 K/mm3 (4.8-10.8)
[2020-08-02 13:30] LABS: Hemoglobin 18.7 g/dL (14.1-18.0)
[2020-08-02 13:31] LABS: Chloride 93 mmol/L (98-107); Sodium 141 mmol/L (136-145)
--- NOTE | 2020-08-02 13:32 | HMH.EDSOB ---
ED Disposition Clinical Impression: Acute exacerbation of chronic obstructive airways disease Respiratory failure with hypoxia and hypercapnia Qualifiers: Chronicity: acute on chronic Qualified Code(s): J96.21 - Acute and chronic respiratory failure with hypoxia; J96.22 - Acute and chronic respiratory failure with hypercapnia Disposition: Admitted As Inpatient Condition on Discharge: Fair Referrals: Kenji James MD [Primary Care Provider] - - Critical Care Critical Care Time: No Attestation: On 08/02/20, the high probability of a clinically significant, sudden or life threatening deterioration of the following system(s) required my full and direct attention, intervention and personal management. The time I documented below is in addition to time spent performing reported procedures but includes the following listed in this critical care notation. Medical Decision Making - Medical Records Medical records reviewed: Yes: I reviewed the patient's medical records. - Lanre Inquiry Pt receiving controlled substance: No Vital Signs: 08/02/20 12:46 Temperature 98.4 F Temperature Source Oral Pulse Rate [Radial] 69 Respiratory Rate 28 H Blood Pressure [Right Arm] 131/74 Blood Pressure Mean [Right Arm] 93 Blood Pressure Position [Right Arm] Sitting 02 Sat by Pulse Oximetry 96 Oxygen Delivery Method Non-Rebreather Oxygen Flow Rate (LPM) 15 - Lab Data Lab Results 08/02/20 13:04: Specimen Source Right radial, O2 % 100% nrb, ABG pH 7.25 L, ABG pCO2 73.9 H, ABG pO2 67.1 L, ABG HCO3 31.8 H, ABG Total CO2 34.1 H, ABG O2 Saturation 94, ABG Base Excess 4.6 H, Collin Test Acceptable 08/02/20 13:05: WBC 4.2 L, RBC 5.78, Hgb 18.7 H*, Hct 59.7 H, MCV 103.3 H, MCH 32.3 H, MCHC 31.3 L, RDW 14.6, Plt Count 110 L, MPV 9.5, Neut % (Auto) 55.0, Lymph % (Auto) 32.8, [place] % (Auto) 9.8 H, Eos % (Auto) 1.0, Baso % (Auto) 1.4, Neut # (Auto) 2.3, Lymph # (Auto) 1.4, [place] # (Auto) 0.4, Eos # (Auto) 0.0, Baso # (Auto) 0.1 08/02/20 13:05: Sodium 141, Potassium 4.0, Chloride 93 L, Carbon Dioxide 42 H*, Anion Gap 10.0, BUN 12, Creatinine 0.80, Estimated Creat Clear 100, Estimated GFR 97, Est GFR ( Amer) 117, Glucose 175 H, Calcium 9.4, Total Bilirubin 1.1, AST 19, ALT 13, Alkaline Phosphatase 66, Troponin I < 0.01, Total Protein 7.7, Albumin 4.4, Globulin 3.3 H, Albumin/Globulin Ratio 1.3 08/02/20 13:05: NT-Pro-B Natriuret Pep 1280 H 08/02/20 13:05: SARS-CoV-2 IgG Ab (Rapid) Negative, SARS-CoV-2 IgM Ab (Rapid) Negative Result diagrams: 08/02/20 13:05 08/02/20 13:05 Orders (Tests/Meds): ED MEDICATIONS Generic Name Dose Route Start Last Admin Trade Name Freq PRN Reason Stop Dose Admin Doxycycline Hyclate 100 mg/ 250 mls @ 166.667 mls/hr 08/02/20 13:45 Sodium Chloride IV 08/16/20 13:44 Q12H TITO Protocol Discontinued Medications Generic Name Dose Route Start Last Admin Trade Name Freq PRN Reason Stop Dose Admin Albuterol/Ipratropium 3 ml 08/02/20 13:08 Albuterol/Ipratropium 3 Ml Neb IH 08/02/20 13:09 ONCE ONE Methylprednisolone Sodium Succinate 125 mg 08/02/20 13:08 08/02/20 13:24 Methylprednisolone Sod Succ 125mg Vial IV 08/02/20 13:09 125 mg ONCE ONE Administration ORDERS Category Date Time Status Chest XR -- portable [XR chest portable] Stat Exams 08/02/20 13:04 Taken Covid-19 Nasal PCR ([facility]) Routine Lab 08/02/20 14:03 Ordered Troponin I Q3H Lab 08/02/20 16:15 Ordered Troponin I Q3H Lab 08/02/20 19:15 Ordered - Radiology Data #1 Image(s): Chest Image Reviewed: Yes I reviewed the patient's radiology results, Yes I reviewed the patient's radiology image Chronic changes - ECG Data Tracing #1 Normal ventricular rate of 63 bpm, normal OR interval, left axis deviation with nonspecific ST changes ECG initial impression date: 08/02/20 ECG initial impression time: 13:05 - Reevaluation(s) Time: 14:07 Reevaluation #1: On reevaluation, the
[2020-08-02 13:34] LABS: Alanine Aminotransferase 13 U/L (12-78); Albumin Level 4.4 g/dl (3.5-5.0); Albumin/Globulin Ratio 1.3 (1.1-1.8); Alkaline Phosphatase 66 U/L (38-126); Aspartate Amino Transferase 19 U/L (17-59); Bilirubin,Total 1.1 mg/dl (0.2-1.3); Blood Urea Nitrogen 12 mg/dl (9-20); Creatinine Clearance Estimated 100 mL/min (50-200); Estimated Glomerular Filt Rate 97 ml/min (>60); GFR (African American) 117 ML/MIN (>60); Globulin 3.3 g/dL (1.3-3.2); Total Protein,Serum 7.7 g/dl (6.3-8.2)
[2020-08-02 13:35] LABS: Calcium 9.4 mg/dl (8.4-10.2); Glucose 175 mg/dl (74-100)
[2020-08-02 13:43] LABS: Carbon Dioxide 42 mmol/L (22.0-30.0)
[2020-08-02 13:44] LABS: NT Pro Brain Natriuretic Pep. 1280 pg/mL (0-125)
[2020-08-02 13:48] LABS: Coronavirus 19 IgG Antibody Negative (Negative); Coronavirus 19 IgM Antibody Negative (Negative); Troponin I < 0.01 ng/ml (0.00-0.034)
--- NOTE | 2020-08-02 14:00 | PC.NURSE ---
Dr. Jacob singh
--- NOTE | 2020-08-02 15:11 | PC.NURSE ---
Advised pt we wee waiting on his covid swab as requested by Dr. Dudley. Pt agreeable
[2020-08-02 15:35] LABS: Lactic Acid 1.1 mmol/L (0.7-2.1)
--- NOTE | 2020-08-02 16:38 | PC.NURSE ---
notified floor pt ready for admission
--- NOTE | 2020-08-02 17:11 | PC.NURSE ---
report papi pichardo rn
--- NOTE | 2020-08-02 17:40 | HMH.ACPN2 ---
Internal Medicine - PN: Subj *Date: 08/02/20 *Time: 17:40 Interval history: This 64-year-old white male was admitted through the emergency room with impression of exacerbation of COPD. He was stabilized in the emergency room and at this time is sitting up eating supper. He is in no acute distress. He has a history of coronary artery disease and stenting. He is a smoker. He denies chest pain. His blood gas in the emergency room showed a respiratory acidosis with CO2 retention. He is mendez complected and his hemoglobin is greater than 18. Exam Vital signs and Labs for Last 24 Hours: Temp Pulse Resp BP Pulse Ox 97.8 F 64 20 136/71 89 L 08/02/20 17:16 08/02/20 17:16 08/02/20 17:16 08/02/20 17:16 08/02/20 17:16 Laboratory Results - last 24 hr 08/02/20 13:04: Specimen Source Right radial, O2 % 100% nrb, ABG pH 7.25 L, ABG pCO2 73.9 H, ABG pO2 67.1 L, ABG HCO3 31.8 H, ABG Total CO2 34.1 H, ABG O2 Saturation 94, ABG Base Excess 4.6 H, Collin Test Acceptable 08/02/20 13:05: WBC 4.2 L, RBC 5.78, Hgb 18.7 H*, Hct 59.7 H, MCV 103.3 H, MCH 32.3 H, MCHC 31.3 L, RDW 14.6, Plt Count 110 L, MPV 9.5, Neut % (Auto) 55.0, Lymph % (Auto) 32.8, [place] % (Auto) 9.8 H, Eos % (Auto) 1.0, Baso % (Auto) 1.4, Neut # (Auto) 2.3, Lymph # (Auto) 1.4, [place] # (Auto) 0.4, Eos # (Auto) 0.0, Baso # (Auto) 0.1 08/02/20 13:05: Sodium 141, Potassium 4.0, Chloride 93 L, Carbon Dioxide 42 H*, Anion Gap 10.0, BUN 12, Creatinine 0.80, Estimated Creat Clear 100, Estimated GFR 97, Est GFR ( Amer) 117, Glucose 175 H, Calcium 9.4, Total Bilirubin 1.1, AST 19, ALT 13, Alkaline Phosphatase 66, Troponin I < 0.01, Total Protein 7.7, Albumin 4.4, Globulin 3.3 H, Albumin/Globulin Ratio 1.3 08/02/20 13:05: NT-Pro-B Natriuret Pep 1280 H 08/02/20 13:05: SARS-CoV-2 IgG Ab (Rapid) Negative, SARS-CoV-2 IgM Ab (Rapid) Negative 08/02/20 13:05: Lactate 1.1 I & O for Last 24 hours: Intake & Output 07/31/20 08/01/20 08/02/20 08/03/20 11:59 11:59 11:59 11:59 Weight 213 lb 6 oz Microbiology Reports for the Last 24 Hours: Microbiology 08/02/20 14:15 Nasopharyngeal Coronavirus COVID-19 PCR - Final Radiology Reports for the Last 24 Hours: CXR: Suspect mild CHF yields mild interstitial edema accentuating interstitial lung markings towards lung the bases bilaterally. Ruth B, septal lines evident left base.. Right pleural effusion with definite blunting at right CP angle also noted. Question scant blunting left CP angle but Mild cardiomegaly. (Difficult to totally exclude additional infiltrate developing at right lung base-but favor appearance mainly reflects a mild CHF and small right pleural effusion) . - Constitutional no acute distress (Nasal O2 in place.) - *Routine HEENT Exam Head: Present: normocephalic (Mendez complexion) ENT: Present: mucous membranes moist - *Routine Neck Exam Absent: JVD - *Routine Respiratory Exam Present: decreased breath sounds. Absent: respiratory distress - *Routine Cardiovascular Exam Present: RRR, S4, ectopic - *Routine Abdominal Exam Present: soft. Absent: tenderness - *Routine Extremities Exam Present: edema (2+) - *Routine Neurological Exam Present: alert, oriented X3 Assessment and Plan (1) Acute exacerbation of chronic obstructive airways disease Status: Acute Category: Medical Code(s): J44.1 - Chronic obstructive pulmonary disease with (acute) exacerbation (2) Respiratory failure with hypoxia and hypercapnia Status: Acute Qualifiers: Chronicity: acute on chronic Qualified Code(s): J96.21 - Acute and chronic respiratory failure with hypoxia; J96.22 - Acute and chronic respiratory failure with hypercapnia Category: Medical Code(s): J96.91 - Respiratory failure, unspecified with hypoxia; J96.92 - Respiratory failure, unspecified with hypercapnia (3) History of ASCVD Status: Acute Category: Medical Code(s): Z86.79 - Personal history of othe
--- NOTE | 2020-08-02 19:14 | PC.NURSE ---
Pt new admit to floor at approx 1705. Remains on 5 L NC and denies soa. CB in reach. Lasix given per sep. NS infusing as ordered. VSS.
[2020-08-03] VITALS (11 sets, daily range): BP systolic 119–143; BP diastolic 68–85; PULSE 55–82; RESP 16–20; TEMP 36.4–37.1; O2SAT 86–93; BMI 32.0
--- NOTE | 2020-08-03 04:18 | PC.NURSE ---
PT HAS RESTED WELL THIS SHIFT, PT DENIES SOA, O2 REMAINS AT 5LNC. VITAL SIGNS STABLE. PT A&O X 4. LUNGS WITH SCATTERED WHEEZES AND DIMINISHED, GIVEN INCENTIVE SPIROMETER THIS SHIFT, USING APPROPRIATELY. IV PATENT. PT WITHOUT NEEDS OR CONCERNS. CALL LIGHT WITHIN REACH. WILL CONTINUE TO MONITOR.
[2020-08-03 06:15] LABS: Basophils % 0.2 % (0.1-2.0); Eosinophils % 0.3 % (0.1-12.0); Hematocrit 55.8 % (42.0-52.0); Hemoglobin 17.1 g/dL (14.1-18.0); Lymphocytes # 0.7 K/mm3 (0.7-4.5); Lymphocytes % 19.1 % (10-50); Mean Corpuscular HGB Conc 30.6 g/dL (31.8-35.4); Mean Corpuscular Hemoglobin 31.6 pg (27.0-31.2); Mean Corpuscular Volume 103.2 fl (80-94); Mean Platelet Volume 9.5 fl (7.4-10.4); Monocytes # 0.3 K/mm3 (0.1-1.0); Monocytes % 7.6 % (1.7-9.3); Neutrophils # 2.5 K/mm3 (1.8-7.8); Neutrophils % 72.8 % (37.0-80.0); Platelet Count 94 K/mm3 (142-424); Red Blood Count 5.41 M/mm3 (4.60-6.20); Red Cell Distribution Width 14.4 % (11.5-17.5); White Blood Count 3.5 K/mm3 (4.8-10.8)
[2020-08-03 06:25] LABS: Blood Urea Nitrogen 13 mg/dl (9-20); Calcium 8.9 mg/dl (8.4-10.2); Chloride 95 mmol/L (98-107); Creatinine Clearance Estimated 99 mL/min (50-200); Estimated Glomerular Filt Rate 97 ml/min (>60); GFR (African American) 117 ML/MIN (>60); Glucose 169 mg/dl (74-100); Potassium 4.5 mmoL/L (3.5-5.1); Sodium 140 mmol/L (136-145)
[2020-08-03 06:36] LABS: Anion Gap 7.5 mEq/L (5-15)
[2020-08-03 06:37] LABS: Carbon Dioxide 42 mmol/L (22.0-30.0)
--- NOTE | 2020-08-03 07:21 | HMH.PHAVTE ---
[facility] Pharmacy VTE Monitoring - Patient Demographics Admission date: 08/02/20 Report Date: 08/03/20 Time: 07:21 Allergies/Adverse Reactions: Patient Allergies No Known Drug Allergies [NKDA] Allergy (Unknown, Verified 12/22/17 16:12) Height: 1.73 m Weight: 95.85 kg Patient Problems: Current Active Problems Respiratory failure with hypoxia and hypercapnia (Acute) Hypothyroidism (Acute) Hypertension (Acute) History of ASCVD (Acute) Acute exacerbation of chronic obstructive airways disease (Acute) - VTE Risk Labs: VTE Related Lab Results Hgb 17.1 g/dL (14.1-18.0) 08/03/20 05:56 Hct 55.8 % (42.0-52.0) H 08/03/20 05:56 Plt Count 94 K/mm3 (142-424) L 08/03/20 05:56 BUN 13 mg/dl (9-20) 08/03/20 05:56 Creatinine 0.80 mg/dl (0.66-1.25) 08/03/20 05:56 Estimated Creat Clear 99 mL/min (50-200) 08/03/20 05:56 - Prophylaxis VTE Prophylaxis Ordered?: Yes Types of VTE Prophylaxis: TEDS Knee High, Pharmacological Location of Applied Device: Bilateral Lower Extremeties Pharmacologic Type: Enoxaparin
--- NOTE | 2020-08-03 07:43 | HMH.PHAINT ---
MEDICATION RECONCILIATION COMPLETED ON PATIENT USING EXTERNAL FILL HISTORY FROM PHARMACY. -SILVA LOVE, LEORAD
--- NOTE | 2020-08-03 08:00 | PC.NURSE ---
PT ASSESSED AT THIS TIME. INTERMITTENT COUGH THAT IS PRODUCTIVE, GRAYISH GREEN SPUTUM NOTED. LUNG SOUNDS DIMINSHED BILATERALLY WITH SOME SCATTERED WHEEZING. SPO2 NOTED TO BE 87% ON 5 L NC MD AWARE AND STATES THIS IS OK FOR TIME BEING. PT DENIES ANY PAIN AT THIS TIME AND STATES THAT HE FEELS LIKE IT IS EASIER TO BREATH TODAY. GENERALIZED WEAKNESS NOTED. WILL CONTINUE TO OBSERVE.
--- NOTE | 2020-08-03 08:27 | CA_ITS ---
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35 MED E' 6.40 (< 7 cm/sec) MED A' 9.90 cm/s E'/MED E' Ratio 18.66 (>14) LAT E' 8.20 (<10 cm/sec) LAT A' 10.80 cm/s E/LAT E' Ratio 14.56 (>14) Aortic Valve AI PHT 371.00 ms AO Peak GR. 7.90 mmHg Mitral Valve MV A Velocity 88.00 (40-130 cm/s) E/A Ratio 1.35 MV Decel. Time 230.00 (160-240 ms) Tricuspid Valve TR P. Velocity 321.00 cm/s RAP Estimate 10.00 mmHg RVSP 51.20 mmHg Left Ventricle Technically very difficult and poor study, endocardial surfaces are very poorly visualized, repeat study with Definity contrast is recommended. Left atrium is mildly enlarged, left ventricle is normal size, mild concentric left ventricular hypertrophy, visually estimated ejection fraction is probably 45 to 50%, there is abnormal septal motion, inferior basal wall appears to be moderately hypokinetic as compared to the rest of the myocardial segments. Grade 2 diastolic dysfunction seen with tissue Doppler evidence of raise left atrial pressure. Right Ventricle Right atrium and right ventricle moderately enlarged with normal contractility. Aortic Valve Aortic valve is thickened and calcified leaflet continue to display mobility, there is no aortic stenosis, there is mild aortic insufficiency. Mitral Valve Mitral valve is grossly normal, there is mild mitral regurgitation. Tricuspid Valve Tricuspid valve is grossly normal, there is mild tricuspid regurgitation, tricuspid regurgitation jet velocity is inadequate for calculation of the right ventricular systolic pressure. Pulmonic Valve Pulmonic valve is poorly visualized. Great Vessels Aortic root is normal size. Pericardium No significant pericardial effusion noted. Conclusion 1. Biatrial enlargement, normal left ventricular size, mild concentric left ventricular hypertrophy, visually estimated ejection fraction probably 50% with no obvious regional wall motion abnormality, endocardial surfaces are very poorly visualized, repeat study with Definity contrast is recommended, grade 2 diastolic dysfunction with tissue Doppler evidence of raise left atrial pressure. 2. Moderately enlarged right ventricle with normal contractility. 3. Thickened and calcified aortic valve without aortic stenosis, there is mild aortic insufficiency. 4. Mild mitral and tricuspid regurgitation. 5. No significant pericardial effusion noted. Electronically signed by : Jayce Butts, 08/04/2020 06:40:38
--- NOTE | 2020-08-03 08:56 | HMH.HP ---
*Admission Date: 08/02/20 <Chela Braga 08/03/20 09:13> *Chief complaint: Shortness of breath <Chela Braga 08/03/20 09:13> *History of present illness: Mr. Medeiros is a 64-year-old male with a history of hypertension, hyperlipidemia, gout, hypothyroidism, ASCVD, COPD, melanoma, and tobacco addiction who presented to [facility] yesterday with progressive shortness of breath. On presentation to the ER he was noted to be significantly hypoxic with Improvement with supplemental oxygen. There was no noted significant respiratory distress. He was given a DuoNeb treatment and IV steroids Which helped significantly. Patient states he has been short of breath for the last 2 to 3 days. He wears his oxygen at night only. He describes a nonproductive infrequent cough. He denies chest pain and abdominal pain and palpitations. He states he has been eating as usual. He describes a headache when first awakening in the morning. Patient is noted to have significant COPD and continues to smoke about a pack a day.. Laboratory data showed a hemoglobin of 18.7 and hematocrit 59.7 and white blood cell count of 4.2. ABG showed a pH of 7.25 PCO2 of 73.9 PO2 of 67.1 and a bicarb of 31.8. Blood chemistries show a normal sodium and potassium. Kidney function is normal. Blood sugar is 175. Prone 0.01. Liver function studies are not elevated. BNP is 1280. Lactate is 1.1. Chest x-ray revealed Suspicious for mild CHF , Right pleural effusion , Mild cardiomegaly. <OmiChela 08/03/20 09:13> [facility] History Medical History: Reports:: Atherosclerotic Heart Disease, Cancer, Chronic Obstructive Pulmonary Disease (COPD), Coronary Artery Disease, Deep Vein Thrombosis, Hyperlipidemia, Hypertension, Lung Disease, Myocardial Infarction Denies:: Diabetes Mellitus Type 1, Diabetes Mellitus Type 2, MRSA <OmiChela 08/03/20 09:13> *Have you ever received a pneumonia vaccine?: Yes <OmiChela - 08/03/20 09:13> *Have you received a flu vaccine this season?: Yes <Chela Braga 08/03/20 09:13> Other Medical History: Reports: Cataracts, Hypothyroidism, Sinus Problems, Thyroid Disease, Other <OmiChela 08/03/20 09:13> Comment:: gout <OmiChela 08/03/20 09:13> Other Surgeries: Yes: Cancer Surgery, Cardiac Catheterization, Colonoscopy, Skin Cancer Excision <OmiChela 08/03/20 09:13> Amputation: No <OmiChela 08/03/20 09:13> Fractures: No <OmiChela 08/03/20 09:13> - *Social History Smoking Status: Current some day smoker <OmiChela 08/03/20 09:13> Tobacco Type: cigarettes <OmiChela 08/03/20 09:13> # Packs/Day (cigarettes): 1 <OmiChela 08/03/20 09:13> Alcohol Intake: former <OmiChela 08/03/20 09:13> Alcohol Intake Frequency:: holidays/special occasions only <BragaChela 08/03/20 09:13> Substance Use Type: denies use <OmiChela 08/03/20 09:13> *Occupational Status:: retired <OmiChela 08/03/20 09:13> Housing: house <OmiChela 08/03/20 09:13> Household Members: spouse <OmiChela 08/03/20 09:13> *Travel in the last 8 weeks: None <BragaChela 08/03/20 09:13> Family Hx:: Diabetes, Heart Attack, Hypertension <Braga,Chela 08/03/20 09:13> Review of Systems - Constitutional Reports headache(s), Denies fever(s) <BragaChela 08/03/20 09:13> - Eyes Denies change in vision <OmiChela 08/03/20 09:13> - ENT Denies ear pain, Denies nasal congestion, Denies post nasal drip, Denies sore throat <OmiChela 08/03/20 09:13> - *Cardiovascular Reports chest pain (Brief periodic and lasting a few minutes), Reports shortness of breath <Chela Braga 08/03/20 09:13> - *Respiratory Reports chest congestion, Reports cough, Reports shortness of breath, Denies coughing up blood <Chela Braga - 08/03/20 09:13> - *Gastrointestinal Denies abdominal pain, Denies change in stools, Denies heartburn, Denies vomiting blood, Denies brig
--- NOTE | 2020-08-03 09:11 | HMH.CNCARD ---
History of Present Illness Consult date: 08/03/20 Requesting physician: Kenji James Consult reason: congestive heart failure Chief complaint: SOA, hypoxemia Additional Medical History:: 1. Hypertension 2. History of coronary artery disease with coronary artery stenting of in the remote past in [place], [place] 3. History of melanoma of the back status post surgery 4. History of tobacco use, continued A. COPD with home oxygen use 5. Hyperlipidemia 6. History of colonic polyps 7. History of DVT X 2 even while on anticoagulation therapy which was discontinued about 2017. 8. Hypothroidism, on replacement therapy History of present illness: Mr. Medeiros is a 64-year-old male with a history of hypertension hyperlipidemia, gout, hypothyroidism, ASCVD, COPD, melanoma, and tobacco addiction who presented to [facility] yesterday with progressive shortness of breath. On presentation to the ER he was noted to be significantly hypoxic with Improvement with supplemental oxygen. There was no noted significant respiratory distress.He was given a DuoNeb treatment and IV steroidsWhich helped significantly. Patient states he has been short of breath for the last 2 to 3 days. He wears his oxygen at night only.He describes a nonproductive infrequent cough. He denies chest pain and abdominal pain and palpitations. He states he has been eatingHe describes a headache when first awakening in the morning. Patient is noted to have significant COPD and continues to smoke about a pack a day.. Laboratory data showed a hemoglobin of 18.7 and hematocrit 59.7 and white blood cell count of 4.2. ABG showed a pH of 7.25 PCO2 of 73.9 PO2 of 67.1 and a bicarb of 31.8. Blood chemistries show a normal sodium and potassium. Kidney function is normal. Blood sugar is 175. Prone 0.01. Liver function studies are not elevated. BNP is 1280. Lactate is 1.1. Chest x-ray revealed Suspicious for mild CHF , Right pleural effusion , Mild cardiomegaly. The above per Chela Braga APRN for Dr. James Patient relates increasing shortness of breath over the last several days. He denies any chest pain, pressure or tightness or similar angina type symptoms that he is experienced in the past. He does have occasional lower extremity edema and reports a history of DVT x2 despite being on anticoagulation in the past. Reportedly this was discontinued about 3 years ago after [address] Dr. Wren in [place]. He denies any history of pulmonary embolus. [facility] History Medical History: Reports:: Atherosclerotic Heart Disease, Cancer, Chronic Obstructive Pulmonary Disease (COPD), Coronary Artery Disease, Deep Vein Thrombosis, Hyperlipidemia, Hypertension, Lung Disease, Myocardial Infarction Denies:: Diabetes Mellitus Type 1, Diabetes Mellitus Type 2, MRSA *Have you ever received a pneumonia vaccine?: Yes *Have you received a flu vaccine this season?: Yes Other Medical History: Reports: Cataracts, Hypothyroidism, Sinus Problems, Thyroid Disease, Other Other Surgeries: Yes: Cancer Surgery, Cardiac Catheterization, Colonoscopy, Skin Cancer Excision Amputation: No Fractures: No - *Social History Smoking Status: Current some day smoker Tobacco Type: cigarettes # Packs/Day (cigarettes): 1 Alcohol Intake: former Alcohol Intake Frequency:: holidays/special occasions only Substance Use Type: denies use *Occupational Status:: retired Housing: house Household Members: spouse *Travel in the last 8 weeks: None Family Hx:: Diabetes, Heart Attack, Hypertension Meds Home Medications Medication Instructions Recorded Confirmed Type Amlodipine Besylate [Amlodipine 10 mg PO DAILY 12/22/17 08/02/20 History 10mg Tab] Levothyroxine Sodium 75 mcg PO DAILY 12/22/17 08/02/20 History [Levothyroxine 75mcg (0.075mg) Tab] Lovastatin 40 mg PO HS 12/22/17 08/02/20 History Propranolol HCl [Propranolol HCl 60 mg PO DAILY 12/22/17 08/02/20 History ER] allopurinoL [Allopurinol
--- NOTE | 2020-08-03 13:20 | SW/DCPLANNER ---
Addendum entered by Catarina David 08/04/20 13:22: Patient will discharge home today. Patient has no further needs/orders at this time. Original Note: I have spoke with Nayely from [facility] and she has stated this patient does receive home O2 at this time. Nayely has also confirmed that order is continuous O2 at 2L. I will follow with [facility] once patient is medically stable for discharge.
--- NOTE | 2020-08-03 18:45 | PC.NURSE ---
PT STATES THAT HE FEELS BETTER AND IS NOT WEAK. PT HAS BEEN USING INCENTIVE SPIROMETER TODAY WELL TAKEN A SHOWER AND AMBULATED TO BR AND BACK TO BED SEVERAL TIMES. PT HAS NOT VOICED ANY OTHER COMPLAINTS. WILL CONTINUE TO OBSERVE.
[2020-08-04 04:00] VITALS: BP 103/57; PULSE 61; RESP 17; TEMP 36.6; O2SAT 93
--- NOTE | 2020-08-04 04:27 | PC.NURSE ---
pt is alert and oriented and able to make needs known,pt has rested well, pt has tolerated o2 at 4l thorughout night with saturations ranging from 895-93%, pt states he feels better, inspiratory wheeze continues, heart rate regular, bs x4 quads, 18g to rac remains patent, no needs at this time, call light within reach will continue to monitor
[2020-08-04 04:52] VITALS: BMI 32.7
[2020-08-04 06:15] VITALS: PULSE 60; PULSE 62; O2SAT 92
--- NOTE | 2020-08-04 07:29 | PC.NURSE ---
report given to Aleena nair RN
[2020-08-04 08:00] VITALS: BP 128/83; PULSE 86; RESP 16; TEMP 36.5; O2SAT 90
--- NOTE | 2020-08-04 08:42 | CA_ITS ---
APPROVED REPORT EXAM: Comprehensive 2D, Doppler, and color-flow Echocardiogram Assistant Women'S Soccer Coach: Galina Corrigan, RT(R) Ht: 5 ft 9 in Wt: 216lbs BSA: 2.13 BP: 110/70 mmHg Indications: COPD, smoker, SOB, HTN, hyperlipidemia, CAD, home O2, hx melanoma, hx MS, echo 08/03/20 repeat with definity Echo Enhancing Agent Indication: Endocardial border delineation Agent(s) / Amount(s) Used: Definity 2 cc Conclusion 1. Limited Definity contrast study was obtained to evaluate left ventricular systolic function, visually estimated ejection fraction approximately 50% with no obvious regional abnormality, there is no left ventricular thrombus seen. 2. No significant pericardial effusion noted. Electronically signed by : Jayce Butts, 08/04/2020 21:13:02
--- NOTE | 2020-08-04 08:44 | HMH.ACPN2 ---
<Chela Braga - Last Filed: 08/04/20 08:44> Internal Medicine - PN: Subj *Date: 08/04/20 *Time: 08:44 Interval history: Patient states he is ready to go home. He feels very much better. He is eating well. He has a periodic cough. He has been using his incentive spirometer. He is ambulated to the bathroom without difficulty. O2 sats are 90-93 on oxygen at 4 L/min. Cultures results are pending. Exam Vital signs and Labs for Last 24 Hours: Temp Pulse Resp BP Pulse Ox 97.7 F 86 16 128/83 90 L 08/04/20 08:00 08/04/20 08:00 08/04/20 08:00 08/04/20 08:00 08/04/20 08:00 I & O for Last 24 hours: Intake & Output 08/01/20 08/02/20 08/03/20 08/04/20 11:59 11:59 11:59 11:59 Intake Total 480 / 480 1920 / 1920 Balance 480 / 480 1920 / 1920 Weight 211 lb 5 oz 216 lb 2 oz Microbiology Reports for the Last 24 Hours: Microbiology 08/03/20 10:10 Sputum - Expectorated Sputum Gram Stain - Final Radiology Reports for the Last 24 Hours: 08/03/2020 ECHO Conclusion 1. Biatrial enlargement, normal left ventricular size, mild concentric left ventricular hypertrophy, visually estimated ejection fraction probably 50% with no obvious regional wall motion abnormality, endocardial surfaces are very poorly visualized, repeat study with Definity contrast is recommended, grade 2 diastolic dysfunction with tissue Doppler evidence of raise left atrial pressure. 2. Moderately enlarged right ventricle with normal contractility. 3. Thickened and calcified aortic valve without aortic stenosis, there is mild aortic insufficiency. 4. Mild mitral and tricuspid regurgitation. 5. No significant pericardial effusion noted. - Constitutional no acute distress Comments: Sitting on the bedside eating his breakfast. - *Routine Respiratory Exam Present: diminished air movement (Bilaterally posteriorly) - *Routine Cardiovascular Exam Present: irregular rhythm Comments: EKG Conclusion Sinus rhythm with premature supraventricular complexes Left axis deviation RSR' or QR pattern in V1 suggests right ventricular conduction delay Septal infarct, age undetermined Abnormal ECG - *Routine Abdominal Exam Present: soft, normoactive bowel sounds. Absent: tenderness - *Routine Extremities Exam Present: edema (Trace bilaterally). Absent: calf tenderness - *Routine Neurological Exam Present: alert, oriented X3 Assessment and Plan (1) CHF (congestive heart failure) Status: Acute Category: Medical Code(s): I50.9 - Heart failure, unspecified (2) Respiratory failure with hypoxia and hypercapnia Status: Acute Qualifiers: Chronicity: acute on chronic Qualified Code(s): J96.21 - Acute and chronic respiratory failure with hypoxia; J96.22 - Acute and chronic respiratory failure with hypercapnia Category: Medical Code(s): J96.91 - Respiratory failure, unspecified with hypoxia; J96.92 - Respiratory failure, unspecified with hypercapnia (3) Acute exacerbation of chronic obstructive airways disease Status: Acute Category: Medical Code(s): J44.1 - Chronic obstructive pulmonary disease with (acute) exacerbation (4) History of ASCVD Status: Acute Category: Medical Code(s): Z86.79 - Personal history of other diseases of the circulatory system (5) Hypertension Status: Acute Category: Medical Code(s): I10 - Essential (primary) hypertension (6) Hypothyroidism Status: Acute Category: Medical Code(s): E03.9 - Hypothyroidism, unspecified - Assessment and plan all Dx Assessment and Plan for all problems:: Meds as per cardiology. He has been started on diuretics as well. We will discharge him home with follow-up with Dr. James in cardiology. <Kenji James - Last Filed: 08/04/20 12:04> Internal Medicine - PN: Subj *Date: 08/04/20 *Time: 12:02 Exam Vital signs and Labs for Last 24 Hours: Temp Pulse Resp BP Pulse Ox 97.7 F 61
--- NOTE | 2020-08-04 08:50 | HMH.PNCARD ---
Subjective Date: 08/04/20 Time: 08:50 Principal diagnosis: CHF, HTN Interval history: 64 yo WM in bed in NAD. States he is feeling better and wants to go home. Echo was difficult but appears to show LVEF of 50% with grade 2 diastolic dysfunction. Will obtain repeat images with definity contrast for better delineation. Exam Vital signs and Labs for Last 24 Hours: Temp Pulse Resp BP Pulse Ox 97.7 F 86 16 128/83 90 L 08/04/20 08:00 08/04/20 08:00 08/04/20 08:00 08/04/20 08:00 08/04/20 08:00 I & O for Last 24 hours: Intake & Output 08/01/20 08/02/20 08/03/20 08/04/20 11:59 11:59 11:59 11:59 Intake Total 480 / 480 1920 / 1920 Balance 480 / 480 1920 / 1920 Weight 211 lb 5 oz 216 lb 2 oz Microbiology Reports for the Last 24 Hours: Microbiology 08/03/20 10:10 Sputum - Expectorated Sputum Gram Stain - Final - Constitutional no acute distress - *Routine Respiratory Exam Present: CTA bilaterally, diminished air movement - *Routine Cardiovascular Exam Present: RRR - *Routine Neurological Exam Present: alert, oriented X3 Progress Note: A&P (1) CHF (congestive heart failure) Status: Acute (2) Respiratory failure with hypoxia and hypercapnia Status: Acute (3) Acute exacerbation of chronic obstructive airways disease Status: Acute (4) History of ASCVD Status: Acute (5) Hypertension Status: Acute (6) Hypothyroidism Status: Acute Assessment and Plan for All Diagnoses:: Agree with discharge home on current medications including carvedilol, irbesartan, Lasix and spironolactone. Recommend BMP and BNP in 1 week with follow-up in our office in 2 weeks.
[2020-08-04 09:42] VITALS: PULSE 58; PULSE 61; O2SAT 90
--- NOTE | 2020-08-04 12:51 | PC.NURSE ---
1247 Discharge education provided to pt at this time, questions encouraged and answered. Pharmacy also at bedside discussing home meds with pt.
--- NOTE | 2020-08-05 16:03 | HMH.DCSUM ---
General - General Admission date:: 08/02/20 <Kenji James - 08/17/20 16:27> 08/02/20 <DaliKelley - 08/05/20 16:10> Discharge date: 08/04/20 <DaliDonisa - 08/05/20 16:10> HPI HPI: Mr. Medeiros is a 64-year-old male with a history of hypertension, hyperlipidemia, gout, hypothyroidism, ASCVD, COPD, melanoma, and tobacco addiction who presented to [facility] yesterday with progressive shortness of breath. On presentation to the ER he was noted to be significantly hypoxic with Improvement with supplemental oxygen. There was no noted significant respiratory distress. He was given a DuoNeb treatment and IV steroids Which helped significantly. Patient states he has been short of breath for the last 2 to 3 days. He wears his oxygen at night only. He describes a nonproductive infrequent cough. He denies chest pain and abdominal pain and palpitations. He states he has been eating as usual. He describes a headache when first awakening in the morning. Patient is noted to have significant COPD and continues to smoke about a pack a day.. Laboratory data showed a hemoglobin of 18.7 and hematocrit 59.7 and white blood cell count of 4.2. ABG showed a pH of 7.25 PCO2 of 73.9 PO2 of 67.1 and a bicarb of 31.8. Blood chemistries show a normal sodium and potassium. Kidney function is normal. Blood sugar is 175. troponin 0.01. Liver function studies are not elevated. BNP is 1280. Lactate is 1.1. Chest x-ray revealed Suspicious for mild CHF , Right pleural effusion , Mild cardiomegaly. <DaliDonisa - 08/05/20 16:10> Hospital Course Hospital Course: The patient's chest x-ray showed mild CHF right pleural effusion, and mild cardiomegaly. The patient was started on Lasix 40 mg IV, an echocardiogram was ordered, and cardiology was consulted. His echo showed an EF of 50% with grade 2 diastolic dysfunction. There was a thickened and calcified aortic valve without aortic stenosis. He was continued on duo nebs and doxycycline as well as Lovenox as started in the emergency room. Cardiology saw the patient and felt he should have his diuretic therapy repeated and they recommended starting an ARB and beta-annabelle therapy along with a low-dose diuretic. By 08/04/2020, he was feeling much better. He was able to ambulate without difficulty and his oxygen sats were 90 to 93% on 4 L of oxygen. He was stable to be discharged home on medicines and will follow up with both cardiology and Dr. James. <Kelley Mcnally - 08/05/20 16:10> Objective Vital signs: Temp Pulse Resp BP Pulse Ox 97.7 F 61 16 128/83 90 L 08/04/20 08:00 08/04/20 09:42 08/04/20 08:00 08/04/20 08:00 08/04/20 09:42 <Kenji James - 08/17/20 16:27> Temp Pulse Resp BP Pulse Ox 97.7 F 61 16 128/83 90 L 08/04/20 08:00 08/04/20 09:42 08/04/20 08:00 08/04/20 08:00 08/04/20 09:42 <Kelley Mcnally - 08/05/20 16:10> Narrative: - Constitutional no acute distress Comments: Sitting on the bedside eating his breakfast. - *Routine Respiratory Exam Present: diminished air movement (Bilaterally posteriorly) - *Routine Cardiovascular Exam Present: irregular rhythm <Kelley Mcnally - 08/05/20 16:10> Results Labs on day of discharge: Preliminary micro results at discharge 08/02/20 13:05 Blood Culture - Preliminary Blood NO GROWTH AFTER 48 HOURS 08/02/20 13:05 Blood Culture - Preliminary Blood NO GROWTH AFTER 48 HOURS 08/03/20 10:10 Sputum Culture - Preliminary Sputum - Expectorated Sputum <Kelley Mcnally - 08/05/20 16:10> DS: Diagnosis - Discharge Diagnosis (1) CHF (congestive heart failure) Status: Acute (2) Respiratory failure with hypoxia and hypercapnia Status: Acute (3) Acute exacerbation of chronic obstructive airways disease Status: Acute (4) History of ASCVD Status: Acute (5) Hypertension Status: Acute (6) Hypothyroidism Status:
== END 2020-08-04 13:00 | disposition home or self-care (01) | DRG 189 ==
LOC: ER 14:08 → 2ND 19:26
PROVIDERS: Admitting Provider Family Medicine; Emergency Provider Emergency Medicine; PCP Family Medicine; Visit Provider Family Medicine
DX: J96.21 Acute and chronic respiratory failure with hypoxia (principal); I50.31 Acute diastolic (congestive) heart failure; J44.1 Chronic obstructive pulmonary disease with (acute) exacerbation; J96.22 Acute and chronic respiratory failure with hypercapnia; I11.0 Hypertensive heart disease with heart failure; I25.10 Atherosclerotic heart disease of native coronary artery without angina pectoris; M10.9 Gout, unspecified; Z95.5 Presence of coronary angioplasty implant and graft; E03.9 Hypothyroidism, unspecified; Z22.0 Carrier of typhoid; Z99.81 Dependence on supplemental oxygen; Z79.82 Long term (current) use of aspirin; Z79.899 Other long term (current) drug therapy
CPT/HCPCS: 36415; 71045; 80048; 80053; 82803; 83605; 83880; 84484; 85025; 86328; 87040; 87070; 87205; 93005; 93306; 93308; 94640; 94761; 96365; 96375; 99284; Q9957; U0003

== ENCOUNTER → 2020-09-08 06:46 | Outpatient (CLI) | payer MEDICARE, SELFPAY ==
--- NOTE | 2020-09-08 06:51 | NM_ITS ---
APPROVED REPORT Exam: Nuclear Stress Test Indication: SOB, Fatigue, CAD, HTN, High cholesterol, Tobacco use, Family history Patient Location: Outpatient Stress Tech: Anay Matt NM Tech:Ann Marie Elaine, ARRT, RT (R)(N) Ht: 5 ft 8 in Wt: 216 lbs HR: 67 bpm BP: 117/61 mmHg BSA: 2.11 m2 BMI: 32.8 History: SOB, Fatigue, CAD, HTN, High cholesterol, Tobacco use, Family history Procedure: Patient received a 0.4 mg of intravenous Lexiscan, resting heart rate 67 bpm, resting blood pressure 117/61 mmHg, with Lexiscan maximum heart rate achived was 89 bpm which is Less than eighty-five % of the maximum predicted heart rate and blood pressure was 127/61 mmHg. With Lexiscan, patient denied any complaint of chest pain. Electrocardiogram Resting electrocardiogram showed sinus rhythm with premature atrial complexes, with Lexiscan there is less than 1.[address] segment depression noted from the baseline EKG. The EKG portion of the Lexiscan is nondiagnostic. Cardiac Stress and Resting SPECT Images: Cardiac Stress and Resting SPECT images were obtained using technetium 99m Myoview 32.1 mCi stress and 10.36 mCi at rest. Gated SPECT for analysis of segmental wall motion and calculation of the ejection fraction also done. Prone images were also obtained. Cardiac stress and resting SPECT images show uniform myocardial activity without segmental perfusion abnormality, computer derived ejection fraction is 53% with no regional wall motion abnormality, right ventricle is normal size and contractility. Conclusion: 1. The EKG portion of the Lexiscan is nondiagnostic. 2. No scintigraphic evidence of reversible ischemia seen, computer derived ejection fraction is 53% with no regional wall motion abnormality, right ventricle is normal size and contractility. 3. Normal Lexiscan Myoview study. Electronically signed by : Jayce Butts, 09/09/2020 10:22:54
--- NOTE | 2020-09-08 06:51 | CA_ITS ---
APPROVED REPORT Exam: Pharmacologic Technologist: Anay Matt Ht: 5 ft 8 in Wt: 203 lbs BSA: 2.06 m2 HR: 67 bpm BP: 117/61 mmHg Indications: CAD, Shortness or Air Medical History Medications: Irbesartan,,,,, Levothyroxine,,,,, Furosemide (LASIX),,,,, Aspirin,,,,, Lovastatin,,,,, Allopurinol,,,,, Carvedilol,,,,, SpirOnolactone,,,,, Stress Test Details Test: LEXISCAN HR Resting HR: 65 bpm Max Heart Rate (APMHR): 154 bpm Max HR Achieved: 95 bpm Target HR (85% APMHR): 130 bpm % of APMHR: 61 Recovery HR: 82 bpm BP Resting BP: 117.0/61.0 mmHg Max BP: 133.0/65.0 mmHg Recovery BP: 116.0/57.0 mmHg ECG Clinical Exercise duration: 04:00 min Highest Stage Achieved: Exercise capacity: 1.0 METs Stress ECG Conclusion Resting EKG: SR PACs Symptoms: Shortness of air, malaise. No chest pain. Arrhythmias/Ectopy: Rare PVC ST-T Changes: No significant changes. Conclusion: Unremarkable Lexiscan stress. Myoview images reported separately. Baseline rhythm suggests sinus node disease. Electronically signed by : Jayce Butts, 09/09/2020 10:13:15
--- NOTE | 2020-09-08 08:16 | HMH.ITSHM ---
Current Home Medications as stated by this patient Delonte Medeiros or pharmaceutical specialty representative. []CARVEDILOL ASA ALLOPURINOL SPIRONOLACTONE LOVASTATIN LEVOTHYROXINE AVAPRO LASIX
== END ==
PROVIDERS: PCP Family Medicine; Visit Provider Physician Assistant
DX: I25.10 Atherosclerotic heart disease of native coronary artery without angina pectoris; I50.9 Heart failure, unspecified; J44.1 Chronic obstructive pulmonary disease with (acute) exacerbation; R06.00 Dyspnea, unspecified; R94.31 Abnormal electrocardiogram [ECG] [EKG]; Z72.0 Tobacco use; I11.0 Hypertensive heart disease with heart failure
CPT/HCPCS: 78452; 93017; A9502; J2785

== ENCOUNTER → 2020-11-19 07:58 | Outpatient (CLI) | payer MEDICARE, SELFPAY ==
--- NOTE | 2020-11-19 08:01 | CT_ITS ---
PROCEDURE: CT LUNG SCREENING CLINICAL INDICATION: H/O NICOTINE DEPENDENCE Current smoker 50 pack year smoking history Copd, CAD Prior on pacs COMPARISON: CT LUNGSCREEN CT lung screening from 05/18/[address] LUNG SCREENING from 05/20/2019 TECHNIQUE: The exam was performed on a GE Light Speed [address] scanner using 2.90 mGy CTDI. A low dose helical CT CHEST was performed on a multi-detector scanner. All CT scans at the facility use one or more dose reduction, viz: automated exposure control, ma/kV adjustment per patient size (including targeted exams where dose is matched to indication, i.e. head), or iterative reconstruction technique. The LDCT was performed in a facility that meets the criteria for the screening program. Data regarding this exam was submitted to ACR which is an approved registry. The order for this exam indicates that it came as a result of a lung cancer screening counseling shard decision-making visit that included all the elements required of such a visit including smoking cessation. The radiologist interpreting this exam meets the CMS criteria for the LDCT lung cancer screening program. The exam is reported using the Lung-RADS classification scale and reported to the ACR registry. NOTE: This study was performed for the specific purposes of lung cancer screening and is not an alternative to diagnostic chest CT. RADIATION DOSE: CTDI vol(CT dose Index-volume) = 2.90mG DLP (Dose Length Product) = 121.94 mGcm FINDINGS: COPD changes. Peripheral area of infiltrate is present in the right upper lobe inferiorly and laterally. There is a suspicious subpleural nodule in the right upper lobe posterior laterally at 15 x 9 mm. Margins are somewhat micronodular in nature. PET CT suggested for further evaluation. OTHER FINDINGS: Coronary artery calcifications. Enlarged main pulmonary artery as well as right and left pulmonary artery. The pulmonary artery/aorta ratio is greater than 1. There are scattered small mediastinal lymph nodes which do not appear significantly changed. The peripheral pulmonary arteries are prominent. There is mild thickening of the distal esophagus. Gynecomastia. Stable hypodensity a patent dome at 7 mm. There is minimal thickening of the pericardium anteriorly IMPRESSION: Lung-RADS Category 4A Suspicious Follow-up: PET CT recommended regarding the right upper lobe nodule. Other pertinent findings include right upper lobe pneumonia, pulmonary arterial hypertension and coronary artery calcifications. Mild nonspecific thickening noted of the distal esophagus. Dictated by: Collin Priest MD 11/22/2020 07:46 Collin Priest MD in [place] 11/22/2020 07:46
--- NOTE | 2020-11-19 08:02 | US_ITS ---
PROCEDURE: US ABD. AORTA SCREENING CLINICAL INDICATION: AAA, SCREENING DUE TO AGE AND SMOKING HISTORY COMPARISON: No exams were available for comparison FINDINGS: There is a fusion of form mid abdominal aortic aneurysm measuring 3.6 x 3.4 cm transverse and AP. The proximal common iliacs are unremarkable. No significant thrombus apparent. IMPRESSION: 3.6 x 3.4 cm mid abdominal aortic aneurysm Dictated by: Collin Priest MD 11/19/2020 16:56 Collin Priest MD in [place] 11/19/2020 16:56
== END ==
PROVIDERS: PCP Family Medicine; Visit Provider Family Medicine
DX: Z13.6 Encounter for screening for cardiovascular disorders (principal); Z87.891 Personal history of nicotine dependence; Z12.2 Encounter for screening for malignant neoplasm of respiratory organs
CPT/HCPCS: 71271; 76705

== ENCOUNTER → 2020-12-30 09:39 | Outpatient (CLI) | payer MEDICARE, MEDICAID, SELFPAY | PROVIDERS: PCP Family Medicine; Visit Provider Internal Medicine Pulmonary Disease | DX: R06.00 Dyspnea, unspecified (principal) | CPT/HCPCS: 94060; 94618; 94726; 94729 ==

== ENCOUNTER 2021-03-14 11:46 | Inpatient (IN) | payer MEDICARE, MEDICAID, SELFPAY ==
[2021-03-14] VITALS (14 sets, daily range): BP systolic 107–137; BP diastolic 65–88; PULSE 70–86; RESP 14–29; TEMP 36.9–37.5; O2SAT 69–98; BMI 29.6; BMI 28.7
--- NOTE | 2021-03-14 13:19 | XR_ITS ---
PROCEDURE INFORMATION: Exam: XR Chest Exam date and time: 03/14/2021 1:19 PM Age: 65 years old Clinical indication: Cough and shortness of breath; Patient HX: Cough, SOA, low o2 sats. Possible covid. TECHNIQUE: Imaging protocol: XR of the chest. Views: 1 view. COMPARISON: CR XR CHEST PORTABLE 08/02/2020 1:24 PM FINDINGS: Lungs: COPD, interstitial disease, and mild airspace disease. Pleural spaces: No significant pleural effusion. Heart/Mediastinum: No cardiomegaly. Bones/joints: Degenerative change. IMPRESSION: COPD, interstitial disease, and mild airspace disease.
[2021-03-14 13:23] LABS: Coronavirus 19, PCR Not Detected (NotDetected); Influenza A, PCR Not Detected (NotDetected); Influenza B, PCR Not Detected (NotDetected)
[2021-03-14 13:28] LABS: Basophils % 0.6 % (0.1-2.0); Eosinophils # 0.1 K/mm3 (0.0-0.4); Eosinophils % 1.2 % (0.1-12.0); Hematocrit 50.6 % (42.0-52.0); Hemoglobin 16.1 g/dL (14.1-18.0); Lymphocytes # 1.2 K/mm3 (0.7-4.5); Lymphocytes % 19.7 % (10-50); Mean Corpuscular HGB Conc 31.8 g/dL (31.8-35.4); Mean Corpuscular Hemoglobin 31.8 pg (27.0-31.2); Mean Platelet Volume 10.8 fl (7.4-10.4); Monocytes # 0.6 K/mm3 (0.1-1.0); Monocytes % 10.3 % (1.7-9.3); Neutrophils % 68.2 % (37.0-80.0); Platelet Count 92 K/mm3 (142-424); Red Blood Count 5.06 M/mm3 (4.60-6.20); Red Cell Distribution Width 14.4 % (11.5-17.5); White Blood Count 5.9 K/mm3 (4.8-10.8)
[2021-03-14 13:32] LABS: Potassium 4.5 mmoL/L (3.5-5.1); Sodium 138 mmol/L (136-145)
[2021-03-14 13:34] LABS: Alanine Aminotransferase 15 U/L (12-78); Alkaline Phosphatase 70 U/L (38-126); Aspartate Amino Transferase 21 U/L (17-59); Bilirubin,Total 0.9 mg/dl (0.2-1.3); Blood Urea Nitrogen 10 mg/dl (9-20); Creatinine Clearance Estimated 90 mL/min (50-200); Estimated Glomerular Filt Rate 112 ml/min (>60); GFR (African American) 136 ML/MIN (>60)
[2021-03-14 13:35] LABS: Albumin Level 4.1 g/dl (3.5-5.0); Albumin/Globulin Ratio 1.3 (1.1-1.8); Calcium 8.9 mg/dl (8.4-10.2); Carbon Dioxide 35 mmol/L (22.0-30.0); Globulin 3.2 g/dL (1.3-3.2); Glucose 103 mg/dl (74-100); Total Protein,Serum 7.3 g/dl (6.3-8.2)
[2021-03-14 13:36] LABS: Lactic Acid 0.7 mmol/L (0.7-2.1)
[2021-03-14 13:44] LABS: Anion Gap 11.5 mEq/L (5-15); Chloride 96 mmol/L (98-107)
--- NOTE | 2021-03-14 14:11 | HMH.EDGENADL ---
ED Disposition Clinical Impression: COPD exacerbation Respiratory failure with hypoxia and hypercapnia Qualifiers: Chronicity: acute on chronic Qualified Code(s): J96.21 - Acute and chronic respiratory failure with hypoxia; J96.22 - Acute and chronic respiratory failure with hypercapnia Disposition: Admitted As Inpatient Condition on Discharge: Serious - Critical Care Critical Care Time: No Attestation: On 03/14/21, the high probability of a clinically significant, sudden or life threatening deterioration of the following system(s) required my full and direct attention, intervention and personal management. The time I documented below is in addition to time spent performing reported procedures but includes the following listed in this critical care notation. Medical Decision Making - Medical Records Medical records reviewed: Yes: I reviewed the patient's medical records. MR Comment: Reviewed discharge summary from most recent admission 08/02/2020 through 08/04/2020 for respiratory failure and COPD. - Lanre Inquiry Pt receiving controlled substance: No Vital Signs: 03/14/21 12:46 03/14/21 13:00 03/14/21 13:30 Temperature 99.5 F Temperature Source Oral Pulse Rate Pulse Rate [Right Radial] 77 78 73 Respiratory Rate 28 H 22 22 Blood Pressure [Right Arm] 107/67 L 115/65 120/68 Blood Pressure Mean [Right Arm] 80 81 85 Blood Pressure Source [Right Arm] Automatic Cuff Blood Pressure Position [Right Arm] Sitting 02 Sat by Pulse Oximetry 69 L 94 L 91 L Oxygen Delivery Method Room Air Nasal Cannula Oxygen Flow Rate (LPM) 5 03/14/21 14:00 03/14/21 14:30 03/14/21 15:00 Temperature Temperature Source Pulse Rate Pulse Rate [Right Radial] 75 70 78 Respiratory Rate 20 20 20 Blood Pressure [Right Arm] 121/71 131/73 134/70 Blood Pressure Mean [Right Arm] 87 92 91 Blood Pressure Source [Right Arm] Blood Pressure Position [Right Arm] 02 Sat by Pulse Oximetry 92 L 91 L 86 L Oxygen Delivery Method Nasal Cannula Nasal Cannula Nasal Cannula Oxygen Flow Rate (LPM) 5 5 5 03/14/21 15:30 03/14/21 15:48 03/14/21 16:14 Temperature Temperature Source Pulse Rate 77 Pulse Rate [Right Radial] 79 83 Respiratory Rate 20 22 Blood Pressure [Right Arm] 111/67 117/65 Blood Pressure Mean [Right Arm] 81 82 Blood Pressure Source [Right Arm] Blood Pressure Position [Right Arm] 02 Sat by Pulse Oximetry 88 L 98 Oxygen Delivery Method Nasal Cannula Non-Rebreather Oxygen Flow Rate (LPM) 5 - Lab Data Lab Results 03/14/21 12:30: SARS-CoV-2 (PCR) Not detected, Influenza A Untype (PCR) Not detected, Influenza Type B (PCR) Not detected 03/14/21 13:00: WBC 5.9, RBC 5.06, Hgb 16.1, Hct 50.6, MCV 100.0 H, MCH 31.8 H, MCHC 31.8, RDW 14.4, Plt Count 92 L, MPV 10.8 H, Neut % (Auto) 68.2, Lymph % (Auto) 19.7, [place] % (Auto) 10.3 H, Eos % (Auto) 1.2, Baso % (Auto) 0.6, Neut # (Auto) 4.0, Lymph # (Auto) 1.2, [place] # (Auto) 0.6, Eos # (Auto) 0.1, Baso # (Auto) 0.0 03/14/21 13:00: Sodium 138, Potassium 4.5, Chloride 96 L, Carbon Dioxide 35 H, Anion Gap 11.5, BUN 10, Creatinine 0.70, Estimated Creat Clear 90, Estimated GFR 112, Est GFR ( Amer) 136, Glucose 103 H, Calcium 8.9, Total Bilirubin 0.9, AST 21, ALT 15, Alkaline Phosphatase 70, Total Protein 7.3, Albumin 4.1, Globulin 3.2, Albumin/Globulin Ratio 1.3 03/14/21 13:00: Lactate 0.7 03/14/21 15:04: Specimen Source Right radial, O2 % 100, ABG pH 7.24 L*, ABG pCO2 73.0 H, ABG pO2 240.5 H, ABG HCO3 30.9 H, ABG Total CO2 33.1 H, ABG O2 Saturation 100, ABG Base Excess 3.5 H, Collin Test Acceptable Result diagrams: 03/14/21 13:00 03/14/21 13:00 Orders (Tests/Meds): ED MEDICATIONS Generic Name Dose Route Start Last Admin Trade Name Freq PRN Reason Stop Dose Admin Acetaminophen 650 mg 03/14/21 17:33 Acetaminophen 325mg Tab PO 04/13/21 17:32 Q4HP PRN Fever or Mild Pain Albuterol/Ipratropium 3 ml 03/14/21 20:00 Ipratropium/Al
[2021-03-14 16:28] LABS: ABG Base Excess 3.5 mmol/L (-2.4-2.3); ABG HCO3 30.9 mmhg (22.0-26.0); ABG Oxygen Saturation 100 % (90-100); ABG PH 7.24 mmol/L (7.35-7.45); ABG PO2 240.5 mmhg (80-100); ABG TCO2 33.1 mmhg (23-27)
[2021-03-14 16:29] LABS: Allen's Test Acceptable; Oxygen 100 %; Source Right Radial
--- NOTE | 2021-03-14 19:23 | PC.NURSE ---
received report from day nurse that this patient was an admit bed hold.
--- NOTE | 2021-03-14 19:41 | PC.NURSE ---
Pt requested something to drink. Pt given jose c mist. No other needs at this time. Pt sitting up on sit of bed
--- NOTE | 2021-03-14 20:46 | PC.NURSE ---
PT ARRIVED TO FLOOR VIA W/C FROM ED W/STAFF AT 2046
[2021-03-15] VITALS (10 sets, daily range): BP systolic 105–140; BP diastolic 53–67; PULSE 64–86; RESP 16–24; TEMP 36.6–36.9; O2SAT 89–94; BMI 28.7
--- NOTE | 2021-03-15 04:11 | PC.NURSE ---
Pt is A/O x4. Pt rested well t/o shift. Pt is on vapotherm 30L/min @ 40% O2 and pt is tolerating well. Pt can ambulate independently to the bathroom. IV is 20 G in left AC and is SL. Call light within reach, will continue to monitor.
--- NOTE | 2021-03-15 08:36 | HMH.HP ---
*Admission Date: 03/14/21 <OmiChela 03/15/21 08:49> *Chief complaint: Shortness of breath <Chela Braga 03/15/21 08:49> *History of present illness: Mr. Medeiros is a 65-year-old patient with a history of hypertension, hyperlipidemia, gout, hypothyroidism, allergic rhinitis, COPD, recurring S VT/DVT, and tobacco addiction who presented to [facility] emergency room for evaluation due to progressive shortness of breath. He started feeling ill last week with copious sinus drainage and head congestion. He was Using his oxygen at night at 2 L/min. He describes a worsening cough along with shortness of breath. He does continue to smoke. With evaluation in the emergency room he was given an albuterol/ ipratropium neb treatment, 40-minute milligrams of Lasix IV, and started on Rocephin and Zithromax as well as steroids. He was then admitted for further evaluation and treatment.Chest x-ray did show COPD with interstitial disease and mild airspace disease. This a.m. patient states he feels somewhat better. He is on a high intensity oxygen at 40%. He states the cough is better. He denies chest pain. He is getting ready to eat his breakfast. He states he did not sleep well due to nursing checking on him. <Chela Braga 03/15/21 08:49> [facility] History Medical History: Reports:: Atherosclerotic Heart Disease, Cancer, Chronic Obstructive Pulmonary Disease (COPD), Coronary Artery Disease, Deep Vein Thrombosis, Hyperlipidemia, Hypertension, Lung Disease, Myocardial Infarction Denies:: Diabetes Mellitus Type 1, Diabetes Mellitus Type 2, MRSA <Chela Braga 03/15/21 08:49> *Have you ever received a pneumonia vaccine?: Yes <Chela Braga 03/15/21 08:49> *Have you received a flu vaccine this season?: Yes <Chela Braga 03/15/21 08:49> Other Medical History: Reports: Cataracts, Hypothyroidism, Sinus Problems, Thyroid Disease, Other <Chela Braga 03/15/21 08:49> Other Surgeries: Yes: Cancer Surgery, Cardiac Catheterization, Colonoscopy, Coronary Stent, Skin Cancer Excision <Chela Braga 03/15/21 08:49> Amputation: No <Chela Braga 03/15/21 08:49> Fractures: No <Chela Braga 03/15/21 08:49> - *Social History Smoking Status: Current every day smoker <Chela Braga 03/15/21 08:49> Tobacco Type: cigarettes <Chela Braga 03/15/21 08:49> # Packs/Day (cigarettes): 1 <Chela Braga 03/15/21 08:49> Alcohol Intake: never <Chela Braga 03/15/21 08:49> Alcohol Intake Frequency:: holidays/special occasions only <Chela Braga 03/15/21 08:49> Substance Use Type: denies use <Chela Braga 03/15/21 08:49> *Occupational Status:: retired <Chela Braga 03/15/21 08:49> Housing: house <Chela Braga 03/15/21 08:49> Household Members: spouse <Chela Braga 03/15/21 08:49> *Travel in the last 8 weeks: None <Chela Braga 03/15/21 08:49> Family Hx:: Coronary Artery Disease <Chela Braga 03/15/21 08:49> Review of Systems - Constitutional Reports fatigue, Reports lack of energy <Chela Braga 03/15/21 08:49> - Eyes Denies change in vision <Chela Braga 03/15/21 08:49> - ENT Reports nasal congestion, Reports nasal discharge, Denies dizziness, Denies ear discharge, Denies ear pain, Denies sore throat <Chela Braga 03/15/21 08:49> - *Cardiovascular Reports shortness of breath, Denies generalized swelling, Denies irregular heart rhythm, Denies rapid, pounding, or irregular heartbeat <OmiChela 03/15/21 08:49> - *Respiratory Reports cough, Reports shortness of breath, Denies coughing up blood <Chela Braga 03/15/21 08:49> - *Gastrointestinal Denies abdominal pain, Denies bloating, Denies change in stools, Denies constipation, Denies loose stools, Denies nausea, Denies vomiting <Chela Braga 03/15/21 08:49> - *Genitourinary Denies difficulty urinating <Chela Braga 03/15/21 08:49> - *Musculoskeletal Denies abnormal walking, Denies joint pain <Angelica
--- NOTE | 2021-03-15 09:55 | HMH.PHAINT ---
MEDICATION RECONCILIATION COMPLETED USING MED LIST FROM PHARMACY AND EXTERNAL FILL HISTORY.
--- NOTE | 2021-03-15 10:34 | HMH.PHAVTE ---
[facility] Pharmacy VTE Monitoring - Patient Demographics Admission date: 03/14/21 Report Date: 03/15/21 Time: 10:34 Allergies/Adverse Reactions: Patient Allergies No Known Drug Allergies [NKDA] Allergy (Unknown, Verified 01/06/21 10:40) Height: 1.73 m Weight: 85.871 kg Patient Problems: Current Active Problems Respiratory failure with hypoxia and hypercapnia (Acute) COPD exacerbation (Acute) Community acquired pneumonia (Acute) Hypothyroidism (Chronic) Tobacco abuse disorder (Chronic) Acute exacerbation of chronic obstructive airways disease (Acute) HLD (hyperlipidemia) (Chronic) History of ASCVD (Chronic) CAD (coronary artery disease) (Chronic) - VTE Risk Labs: VTE Related Lab Results Hgb 16.1 g/dL (14.1-18.0) 03/14/21 13:00 Hct 50.6 % (42.0-52.0) 03/14/21 13:00 Plt Count 92 K/mm3 (142-424) L 03/14/21 13:00 BUN 10 mg/dl (9-20) 03/14/21 13:00 Creatinine 0.70 mg/dl (0.66-1.25) 03/14/21 13:00 Estimated Creat Clear 90 mL/min (50-200) 03/14/21 13:00 - Prophylaxis VTE Prophylaxis Ordered?: Yes Types of VTE Prophylaxis: TEDS Knee High Location of Applied Device: Bilateral Lower Extremeties
--- NOTE | 2021-03-15 18:10 | PC.NURSE ---
Pt has been pleasant and cooperative this shift. A&O X4. No complaints of pain or SOA. Pt is currently receiving O2 via Vapotherm @ 30 LPM with sats. >90%. Lung sounds reveal expiratory wheezing. No edema noted. Skin is C/D/I. Pt ambulates independently to/ from the bathroom and throughout the room. Pt voids clear, yellow urine without issue. No BM this shift. Appetite is good at pt eats the majority of all meals. Pt has been instructed to provide a sputum sample and a specimen cup is at bedside. 20 G peripheral IV in the LT AC is patent and SL. VSS. Call light within reach. Will continue to monitor.
--- NOTE | 2021-03-15 18:53 | PC.NURSE ---
Sputum induced, specimen cup left at bedside. Pt did not spit sputum into cup. Stated he will next time.
[2021-03-16] VITALS (10 sets, daily range): BP systolic 97–121; BP diastolic 56–69; PULSE 54–82; RESP 18–20; TEMP 36.6–37.1; O2SAT 90–94
--- NOTE | 2021-03-16 06:00 | PC.NURSE ---
Pt is A&Ox4 and has rested well during the night. Sats have maintained on current vapotherm settings. Sputum sample collected and submitted to Lab. Pt denies any sob and feels like he is getting better .
--- NOTE | 2021-03-16 08:05 | HMH.ACPN2 ---
<Chela Braga - Last Filed: 03/16/21 08:05> Internal Medicine - PN: Subj *Date: 03/16/21 *Time: 08:05 Interval history: Patient states he is doing better today. His breathing is easier and his cough is less. He has been up to the bathroom. He continues with Vapotherm at 40%. He denies chest pain. He is eating without difficulty. Exam Vital signs and Labs for Last 24 Hours: Temp Pulse Resp BP Pulse Ox 97.9 F 56 L 16 105/53 L 90 L 03/15/21 19:22 03/16/21 05:52 03/15/21 19:22 03/15/21 19:22 03/16/21 05:52 I & O for Last 24 hours: Intake & Output 03/13/21 03/14/21 03/15/21 03/16/21 11:59 11:59 11:59 11:59 Intake Total 1030 / 1030 900 / 900 Output Total 360 / 360 Balance 670 / 670 900 / 900 Weight 189 lb 9.561 oz Microbiology Reports for the Last 24 Hours: Microbiology 03/15/21 21:20 Sputum - Expectorated Sputum Gram Stain - Final - Constitutional no acute distress Comments: Sitting on bedside completing his breakfast. He looks like he feels better. - *Routine Respiratory Exam Present: rhonchi (Bilaterally), crackles (Mostly on the right posteriorly) - *Routine Cardiovascular Exam Present: RRR - *Routine Abdominal Exam Present: soft, normoactive bowel sounds. Absent: tenderness - *Routine Extremities Exam Absent: edema, calf tenderness - *Routine Neurological Exam Present: alert, oriented X3 Assessment and Plan (1) Acute exacerbation of chronic obstructive airways disease Status: Acute Category: Medical Code(s): J44.1 - Chronic obstructive pulmonary disease with (acute) exacerbation (2) Respiratory failure with hypoxia and hypercapnia Status: Acute Qualifiers: Chronicity: acute on chronic Qualified Code(s): J96.21 - Acute and chronic respiratory failure with hypoxia; J96.22 - Acute and chronic respiratory failure with hypercapnia Category: Medical Code(s): J96.91 - Respiratory failure, unspecified with hypoxia; J96.92 - Respiratory failure, unspecified with hypercapnia (3) Community acquired pneumonia Status: Acute Qualifiers: Laterality: unspecified laterality Qualified Code(s): J18.9 - Pneumonia, unspecified organism Category: Medical Code(s): J18.9 - Pneumonia, unspecified organism (4) Hypothyroidism Status: Chronic Category: Medical Code(s): E03.9 - Hypothyroidism, unspecified (5) CAD (coronary artery disease) Status: Chronic Qualifiers: Coronary Disease-Associated Artery/Lesion type: [place] artery [place] vs. transplanted heart: [place] heart Associated angina: without angina Qualified Code(s): I25.10 - Atherosclerotic heart disease of [place] coronary artery without angina pectoris Category: Medical Code(s): I25.10 - Atherosclerotic heart disease of [place] coronary artery without angina pectoris (6) HLD (hyperlipidemia) Status: Chronic Qualifiers: Hyperlipidemia type: mixed hyperlipidemia Qualified Code(s): E78.2 - Mixed hyperlipidemia Category: Medical Code(s): E78.5 - Hyperlipidemia, unspecified (7) History of ASCVD Status: Chronic Category: Medical Code(s): Z86.79 - Personal history of other diseases of the circulatory system (8) Tobacco abuse disorder Status: Chronic Category: Medical Code(s): Z72.0 - Tobacco use - Assessment and plan all Dx Assessment and Plan for all problems:: Continue with antibiotics, duo nebs, and steroids. Will try to wean from Vapotherm. <Kenji James - Last Filed: 03/16/21 21:19> Internal Medicine - PN: Subj *Date: 03/16/21 *Time: 21:18 Exam Vital signs and Labs for Last 24 Hours: Temp Pulse Resp BP Pulse Ox 98.4 F 68 20 113/69 94 L 03/16/21 16:00 03/16/21 19:31 03/16/21 16:00 03/16/21 16:00 03/16/21 20:00 I & O for Last 24 hours: Intake & Output 03/14/21 03/15/21 03/16/21 03/17/21 11:59 11:59 11:59 11:59 Intake Total 1030 / 1030 1180 / 1180 480 / 480 Output
--- NOTE | 2021-03-16 18:13 | PC.NURSE ---
Pt has been pleasant this shift. No new complaints or concerns. Will continue to monitor.
[2021-03-17] VITALS (12 sets, daily range): BP systolic 106–130; BP diastolic 58–75; PULSE 52–84; RESP 16–21; TEMP 36.4–36.9; O2SAT 90–97; BMI 29.8
--- NOTE | 2021-03-17 04:59 | PC.NURSE ---
0100- received report from asif eckert, rn Pt. has been alert and cooperative. No c/o n/v/d, pain, dizziness. Tolerating vapotherm with o2 sat 93-96%. Intermittent nonproductive cough noted with expiratory/inspiratory rhonchi t/o bilat lungs.
--- NOTE | 2021-03-17 08:32 | HMH.ACPN2 ---
<Chela Braga - Last Filed: 03/17/21 08:32> Internal Medicine - PN: Subj *Date: 03/17/21 *Time: 08:32 Interval history: Patient thinks he is doing better. He did sleep some during the night. He remains on Vapotherm at 40%. O2 sats are satisfactory on this. He has been up in the room. He is eating without problems. Exam Vital signs and Labs for Last 24 Hours: Temp Pulse Resp BP Pulse Ox 98.1 F 76 21 106/60 L 96 03/17/21 07:41 03/17/21 07:41 03/17/21 07:41 03/17/21 07:41 03/17/21 07:41 I & O for Last 24 hours: Intake & Output 03/14/21 03/15/21 03/16/21 03/17/21 11:59 11:59 11:59 11:59 Intake Total 1030 / 1030 1180 / 1180 660 / 660 Output Total 360 / 360 0 / 0 0 / 0 Balance 670 / 670 1180 / 1180 660 / 660 Weight 189 lb 9.561 oz 197 lb 1 oz Microbiology Reports for the Last 24 Hours: Microbiology 03/15/21 21:20 Sputum - Expectorated Sputum Gram Stain - Final 03/15/21 21:20 Sputum - Expectorated Sputum Sputum Culture - Preliminary Gram Negative Rods 03/14/21 13:00 Blood Blood Culture - Preliminary NO GROWTH AFTER 48 HOURS 03/14/21 13:00 Blood Blood Culture - Preliminary NO GROWTH AFTER 48 HOURS - Constitutional no acute distress Comments: Appears relaxed and comfortable - *Routine Respiratory Exam Present: rhonchi (Bilaterally), wheezes (Soft wheeze bilaterally anteriorly) - *Routine Cardiovascular Exam Present: RRR - *Routine Abdominal Exam Present: soft, normoactive bowel sounds. Absent: tenderness - *Routine Extremities Exam Absent: edema, calf tenderness - *Routine Neurological Exam Present: alert, oriented X3 Assessment and Plan (1) Acute exacerbation of chronic obstructive airways disease Status: Acute Category: Medical Code(s): J44.1 - Chronic obstructive pulmonary disease with (acute) exacerbation (2) Respiratory failure with hypoxia and hypercapnia Status: Acute Qualifiers: Chronicity: acute on chronic Qualified Code(s): J96.21 - Acute and chronic respiratory failure with hypoxia; J96.22 - Acute and chronic respiratory failure with hypercapnia Category: Medical Code(s): J96.91 - Respiratory failure, unspecified with hypoxia; J96.92 - Respiratory failure, unspecified with hypercapnia (3) Community acquired pneumonia Status: Acute Qualifiers: Laterality: unspecified laterality Qualified Code(s): J18.9 - Pneumonia, unspecified organism Category: Medical Code(s): J18.9 - Pneumonia, unspecified organism (4) Hypothyroidism Status: Chronic Category: Medical Code(s): E03.9 - Hypothyroidism, unspecified (5) CAD (coronary artery disease) Status: Chronic Qualifiers: Coronary Disease-Associated Artery/Lesion type: [place] artery [place] vs. transplanted heart: [place] heart Associated angina: without angina Qualified Code(s): I25.10 - Atherosclerotic heart disease of [place] coronary artery without angina pectoris Category: Medical Code(s): I25.10 - Atherosclerotic heart disease of [place] coronary artery without angina pectoris (6) HLD (hyperlipidemia) Status: Chronic Qualifiers: Hyperlipidemia type: mixed hyperlipidemia Qualified Code(s): E78.2 - Mixed hyperlipidemia Category: Medical Code(s): E78.5 - Hyperlipidemia, unspecified (7) History of ASCVD Status: Chronic Category: Medical Code(s): Z86.79 - Personal history of other diseases of the circulatory system (8) Tobacco abuse disorder Status: Chronic Category: Medical Code(s): Z72.0 - Tobacco use - Assessment and plan all Dx Assessment and Plan for all problems:: Need to wean from Vapotherm as tolerated. Possibly home later if able to wean. Otherwise continue current care. Sputum culture growing gram-negative rods with ID and sensitivities pending. <Kenji James - Last Filed: 03/17/21 10:50> In
--- NOTE | 2021-03-17 11:14 | PC.NURSE ---
Pt was weaned down on vapotherm 15L/32% FiO2. 1040- called RT regarding pt o2 sats remaining between 85-87%. vapotherm increased to 20/35%
--- NOTE | 2021-03-17 13:49 | HMH.PTEV ---
Physical Therapy Evaluation Rehab PT IP Evaluation Start: 03/17/21 10:59 Freq: ONCE Status: Active Protocol: Document 03/17/21 13:39 CANDELARIO (Rec: 03/17/21 13:48 CANDELARIO [id number]) Subjective/History History History Mr. Medeiros is a 65-year-old patient with a history of hypertension, hyperlipidemia, gout, hypothyroidism, allergic rhinitis, COPD, recurring S VT/DVT, and tobacco addiction who presented to [facility] emergency room for evaluation due to progressive shortness of breath. He started feeling ill last week with copious sinus drainage and head congestion. He was Using his oxygen at night at 2 L/min. He describes a worsening cough along with shortness of breath . He does continue to smoke. Subjective Subjective Pt reports he has no issues or difficulty Rehab PT IP Eval Objective Appearance Patient Behavior Appropriate,Cooperative Patient Orientation Person,Place,Time,Birthday Difficulty following instructions none Speech Pattern Clear,Appropriate Ambulation Patient Able to Ambulate Yes Ambulation Observation IP General Gait Pattern Observation No Deviations/Normal Ambulation Distance (feet) 25 Ambulation Assistive Device None Ambulation Ability Independent Balance Ability to Arise Able, w/o using arms Sitting Balance Steady, safe Standing Balance Narrow stance w/o support Dynamic Sitting Balance Ability Normal Dynamic Standing Balance Ability Normal Transfers Bed Transfer Ability Independent Chair Transfer Ability Independent Sit to Stand Bed Transfer Ability Independent Sit to Stand Chair Transfer Ability Independent ROM All Extremities PT ROM Status WFL MMT All Extremities PT MMT WFL Rehab PT IP prob,goals,plan Problems Date of Evaluation: 03/17/21 Rehab Potential Rehab Potential Innapropriate for Skilled Therapy Equipment Needs Assistive Devices None / NA Discharge Plan PT Discharge Plan pt functionally safe to return home once medically stable -
--- NOTE | 2021-03-17 14:35 | HMH.OTEV ---
OT Inpatient Evaluation Rehab OT IP Evaluation Start: 03/17/21 11:00 Freq: ONCE Status: Complete Protocol: Document 03/17/21 14:32 AKIN (Rec: 03/17/21 14:35 [id number] Rehab OT IP Assessment Subjective History Pt oriented x 4 on arrival. Pt agreeable to engage in therapy evaluation. Pt admitted via ED on 03/14/21 due to SOB. Pt has a past medical history of Atherosclerotic Heart Disease, Cancer, Chronic Obstructive Pulmonary Disease (COPD), Coronary Artery Disease, Deep Vein Thrombosis, Hyperlipidemia, Hypertension, Lung Disease, Myocardial Infarction. Pt reports he lives at home with his . Pt claims he is independent with all ADLs and IADLS. He works outside and in his garden often. He does use oxygen sometimes at night if he needs it. He doesn't require a walker or cane during ambulation. Subjective I can do what I need to. Objective Patient Orientation Person,Place,Birthday,Year Upper Extremity Gross ROM WFL Transfer Training Sit/Stand Transfer Assist Level Supervision/Stand by Chair Transfer Ability Supervision/Stand by Chair Transfer Technique Sit to/from Ambulatory Chair Transfer Assistive Devices None Lower Body Dressing Ability Standby Assistance Upper Body Dressing Ability Standby Assistance Rehab OT IP prob,goals,plan Problems Date of Evaluation: 03/17/21 OT IP Problems Bed Mobility,Transfers,Gait, Balance,Self care,Safety Rehab Potential Rehab Potential Innapropriate for Skilled Therapy Discharge Plan OT Discharge Plan Pt appears to be at his baseline functionally. He is safe to return home once medically stable. Eval Complexity Eval Charge Codes 76060 - Moderate Complexity G Codes G -code Required No PHYSICIAN CERTIFICATION: I certify the specified therapy services for Delonte Medeiros are required, authorized, and reviewed every 30 days.
--- NOTE | 2021-03-17 15:02 | DIET.NUTRFU ---
PO intakes 75%, weight stable, no edema noted, reports no nutritional concerns.
--- NOTE | 2021-03-17 15:45 | HMH.PULMCON ---
*Admission Date: 03/14/21 *Reason for consult:: COPD exacerbation, acute on chronic hypoxic respiratory failure *History of present illness: Mr. Medeiros 65-year-old male greater than [id number] smoking history current smoker carries a diagnosis COPD on triple inhaler therapy, following in pulmonary clinic for COPD and pulmonary nodule admitted to the hospital with worsening respiratory distress needing BiPAP and high flow nasal oxygen supplementation and pulmonary was called for further management. Patient admits sick contacts, her grandson was recently diagnosed with COVID-19 pneumonia however his COVID-19 PCR on this admission resulted negative. Patient admits symptoms even prior to this contact [facility] History Medical History: Reports:: Atherosclerotic Heart Disease, Cancer, Chronic Obstructive Pulmonary Disease (COPD), Coronary Artery Disease, Deep Vein Thrombosis, Hyperlipidemia, Hypertension, Lung Disease, Myocardial Infarction Denies:: Diabetes Mellitus Type 1, Diabetes Mellitus Type 2, MRSA *Have you ever received a pneumonia vaccine?: Yes *Have you received a flu vaccine this season?: Yes Other Medical History: Reports: Cataracts, Hypothyroidism, Sinus Problems, Thyroid Disease, Other Other Surgeries: Yes: Cancer Surgery, Cardiac Catheterization, Colonoscopy, Coronary Stent, Skin Cancer Excision Amputation: No Fractures: No - *Social History Smoking Status: Current every day smoker Tobacco Type: cigarettes # Packs/Day (cigarettes): 1 Alcohol Intake: never Alcohol Intake Frequency:: holidays/special occasions only Substance Use Type: denies use *Occupational Status:: retired Housing: house Household Members: spouse *Travel in the last 8 weeks: None Family Hx:: Coronary Artery Disease ROS - Cons Reports anorexia, Reports body ache(s) - Eyes Denies blind spots - ENT Denies bleeding gums, Denies change in voice - Card Reports shortness of breath, Reports shortness of breath with activity - Resp Respiratory: Reports chest congestion, Reports cough, Reports non-productive cough, Reports dyspnea on exertion, Denies excessive phlegm production - GI Gastrointestingal: Denies: abdominal pain - [place] Musculoskeletal: Reports back pain - Psych Reports abnormal sleep pattern Meds Home Medications Medication Instructions Recorded Confirmed Type Levothyroxine Sodium 75 mcg PO DAILY 12/22/17 03/14/21 History [Levothyroxine 75mcg (0.075mg) Tab] Lovastatin 40 mg PO HS 12/22/17 03/14/21 History allopurinoL [Allopurinol 300mg 300 mg PO DAILY 12/22/17 03/14/21 History tablet] aspirin 81 mg tablet,delayed 81 mg PO BID tab 08/24/20 03/14/21 History release Furosemide [Lasix 20mg tablet] 20 mg PO DAILY 03/14/21 03/14/21 History Irbesartan [Avapro 75mg 75 mg PO DAILY 03/14/21 03/14/21 History tablet] Spironolactone [Aldactone 25mg 25 mg PO DAILY 03/14/21 03/14/21 History Tab] carvediloL [Coreg 3.125mg Tablet] 3.125 mg PO BID 03/14/21 03/14/21 History Allergies Allergy/AdvReac Type Severity Reaction Status Date / Time No Known Drug Allergies Allergy Unknown Verified 01/06/21 10:40 [NKDA] Exam - Constitutional Constitutional:: Present: no acute distress, comfortable - HENMT Exam HENMT: Present: normocephalic, atraumatic - Eye Exam Eyes:: Present: normal appearance both eyes and related structures - Neck Exam Neck:: Present: normal visual inspection - Respiratory Exam Respiratory:: Present: able to speak in complete sentences, no respiratory distress, crackles, wheezing - Cardiovascular Exam Cardiac:: Present: S1, S2 - GI Exam GI:: Present: soft - Skin Exam Skin: Present: warm, no rash - Neurological Exam Neurological: Present: alert, awake, normal cognition - Extremities Exam Extremities: Present: no cyanosis, no clubbing, no edema Internal Medicine - CN: Reslt - Labs CBC & Chem 7: 03/14/21 13:00 03/14/21 13:00 - ABG Interpretation ABG results:
--- NOTE | 2021-03-17 18:00 | PC.NURSE ---
PTS SATS WERE 83% WHEN I WALKED INTO ROOM SO I TURNED HIM UP TO 15L AND 40%. SATS CAME UP TO 90%
--- NOTE | 2021-03-18 03:49 | PC.NURSE ---
A&OX4. PT IS NOW AT 15 L 30%, WITH O2 SAT 88-90%. PT UP INDEPENDENTLY IN ROOM. PT HAS HAD NO C/O THUS FAR. PT DOES HAVE NON-PRODUCTIVE INTERMITTENT COUGH. PT HAS BEEN AWAKE MAJORITY OF SHIFT. NO OTHER C/O, VSS WILL CONTINUE TO MONITOR.
[2021-03-18 04:00] VITALS: BP 127/67; PULSE 54; RESP 20; TEMP 36.5; O2SAT 92
[2021-03-18 05:29] VITALS: BMI 29.9
[2021-03-18 06:20] VITALS: PULSE 61; PULSE 72; O2SAT 89
--- NOTE | 2021-03-18 06:20 | PC.NURSE ---
TRIED TO WEAN VAPOTHERM SETTINGS THIS AM. SATS ONLY 89% AT 15L AND 35$. WILL CONTINUE TO TRY TO WEAN THROUGHOUT THE DAY.
[2021-03-18 07:55] VITALS: O2SAT 91
--- NOTE | 2021-03-18 07:56 | PC.NURSE ---
Vapotherm decreased to 15L/30% FIO2 SPO2 at 91%
[2021-03-18 08:00] VITALS: BP 129/70; BP 131/70; PULSE 76; PULSE 80; RESP 21; RESP 22; TEMP 36.6; O2SAT 90; O2SAT 92; O2SAT 94
--- NOTE | 2021-03-18 08:56 | PC.NURSE ---
Vapotherm settings increased 15L/32% FIO2 Pt SPO2 at 89%
--- NOTE | 2021-03-18 08:58 | HMH.ACPN2 ---
<Lynette Turpin - Last Filed: 03/18/21 09:04> Internal Medicine - PN: Subj *Date: 03/18/21 *Time: 09:04 Interval history: Pt is resting quietly in bed. He has no complaint other than not resting well overnight. He continues to require Vapotherm to maintain sats >90%. Exam Vital signs and Labs for Last 24 Hours: Temp Pulse Resp BP Pulse Ox 97.8 F 76 21 129/70 90 L 03/18/21 08:00 03/18/21 08:00 03/18/21 08:00 03/18/21 08:00 03/18/21 08:00 I & O for Last 24 hours: Intake & Output 03/15/21 03/16/21 03/17/21 03/18/21 11:59 11:59 11:59 11:59 Intake Total 1030 / 1030 1180 / 1180 660 / 660 960 / 960 Output Total 360 / 360 0 / 0 0 / 0 0 / 0 Balance 670 / 670 1180 / 1180 660 / 660 960 / 960 Weight 189 lb 9.561 oz 197 lb 1 oz 197 lb 8 oz Microbiology Reports for the Last 24 Hours: Microbiology 03/15/21 21:20 Sputum - Expectorated Sputum Gram Stain - Final 03/15/21 21:20 Sputum - Expectorated Sputum Sputum Culture - Final Serratia marcescens Sputum culture: Final - Serratia marcescens sensitive to Ceftriaxone - Constitutional no acute distress - *Routine HEENT Exam Head: Present: normocephalic ENT: Present: mucous membranes moist - *Routine Respiratory Exam Absent: respiratory distress Comments: good air movement bilaterally with wheezes throughout - *Routine Cardiovascular Exam Present: RRR - *Routine Abdominal Exam Present: soft, normoactive bowel sounds. Absent: tenderness, distended - *Routine Extremities Exam Present: full ROM, pulses intact. Absent: edema, tenderness - *Routine Neurological Exam Present: alert, oriented X3, moving all extremities, normal speech Assessment and Plan (1) Acute exacerbation of chronic obstructive airways disease Status: Acute Category: Medical Code(s): J44.1 - Chronic obstructive pulmonary disease with (acute) exacerbation (2) Respiratory failure with hypoxia and hypercapnia Status: Acute Qualifiers: Chronicity: acute on chronic Qualified Code(s): J96.21 - Acute and chronic respiratory failure with hypoxia; J96.22 - Acute and chronic respiratory failure with hypercapnia Category: Medical Code(s): J96.91 - Respiratory failure, unspecified with hypoxia; J96.92 - Respiratory failure, unspecified with hypercapnia (3) Community acquired pneumonia Status: Acute Qualifiers: Laterality: unspecified laterality Qualified Code(s): J18.9 - Pneumonia, unspecified organism Category: Medical Code(s): J18.9 - Pneumonia, unspecified organism (4) Hypothyroidism Status: Chronic Category: Medical Code(s): E03.9 - Hypothyroidism, unspecified (5) CAD (coronary artery disease) Status: Chronic Qualifiers: Coronary Disease-Associated Artery/Lesion type: [place] artery [place] vs. transplanted heart: [place] heart Associated angina: without angina Qualified Code(s): I25.10 - Atherosclerotic heart disease of [place] coronary artery without angina pectoris Category: Medical Code(s): I25.10 - Atherosclerotic heart disease of [place] coronary artery without angina pectoris (6) HLD (hyperlipidemia) Status: Chronic Qualifiers: Hyperlipidemia type: mixed hyperlipidemia Qualified Code(s): E78.2 - Mixed hyperlipidemia Category: Medical Code(s): E78.5 - Hyperlipidemia, unspecified (7) History of ASCVD Status: Chronic Category: Medical Code(s): Z86.79 - Personal history of other diseases of the circulatory system (8) Tobacco abuse disorder Status: Chronic Category: Medical Code(s): Z72.0 - Tobacco use - Assessment and plan all Dx Assessment and Plan for all problems:: Continue current care. Further per Dr. James. <Kenji James - Last Filed: 03/18/21 19:19> Internal Medicine - PN: Subj *Date: 03/18/21 *Time: 19:17 Exam Vital signs and Labs for Last 24 Hours: Temp Pulse Resp BP Pulse Ox 97.8 F 72 20 107
--- NOTE | 2021-03-18 09:20 | SW/DCPLANNER ---
Addendum entered by Catarina David 03/18/21 11:25: I have faxed patient information to [facility] for a nebulizer machine. I spoke with Alison at [facility] and they confirmed nebulizer machine will be delivered to patients room. Original Note: Per PT/OT patient medically stable for discharge to home. Patient is currently on Vapoterm and once able to wean off patient will be medically stable for discharge. I will continue to follow up with this patient until medically stable for discharge.
[2021-03-18 09:36] VITALS: PULSE 68; PULSE 72; O2SAT 92
--- NOTE | 2021-03-18 10:43 | HMH.PULMPN ---
Internal Medicine - PN: Subj *Date: 03/18/21 *Time: 10:43 Interval history: No acute respiratory events overnight. Patient successfully weaned to nasal cannula at 4 L. He admits improvement in his symptoms. Denies any new complaints. Exam - Constitutional Constitutional:: Present: no acute distress, comfortable - HENMT Exam HENMT: Present: normocephalic, atraumatic - Eye Exam Eyes:: Present: normal appearance both eyes and related structures - Neck Exam Neck:: Present: normal visual inspection - Respiratory Exam Respiratory:: Present: able to speak in complete sentences, no respiratory distress, rales, wheezing - Cardiovascular Exam Cardiac:: Present: S1, S2 - GI Exam GI:: Present: soft - Skin Exam Skin: Present: warm - Neurological Exam Neurological: Present: alert, awake, normal cognition - Extremities Exam Extremities: Present: no cyanosis, no clubbing, no edema Assessment and Plan (1) Acute exacerbation of chronic obstructive airways disease Status: Acute Category: Medical Code(s): J44.1 - Chronic obstructive pulmonary disease with (acute) exacerbation (2) Respiratory failure with hypoxia and hypercapnia Status: Acute Qualifiers: Chronicity: acute on chronic Qualified Code(s): J96.21 - Acute and chronic respiratory failure with hypoxia; J96.22 - Acute and chronic respiratory failure with hypercapnia Category: Medical Code(s): J96.91 - Respiratory failure, unspecified with hypoxia; J96.92 - Respiratory failure, unspecified with hypercapnia (3) Community acquired pneumonia Status: Acute Qualifiers: Laterality: unspecified laterality Qualified Code(s): J18.9 - Pneumonia, unspecified organism Category: Medical Code(s): J18.9 - Pneumonia, unspecified organism (4) Hypothyroidism Status: Chronic Category: Medical Code(s): E03.9 - Hypothyroidism, unspecified (5) CAD (coronary artery disease) Status: Chronic Qualifiers: Coronary Disease-Associated Artery/Lesion type: [place] artery [place] vs. transplanted heart: [place] heart Associated angina: without angina Qualified Code(s): I25.10 - Atherosclerotic heart disease of [place] coronary artery without angina pectoris Category: Medical Code(s): I25.10 - Atherosclerotic heart disease of [place] coronary artery without angina pectoris (6) HLD (hyperlipidemia) Status: Chronic Qualifiers: Hyperlipidemia type: mixed hyperlipidemia Qualified Code(s): E78.2 - Mixed hyperlipidemia Category: Medical Code(s): E78.5 - Hyperlipidemia, unspecified (7) History of ASCVD Status: Chronic Category: Medical Code(s): Z86.79 - Personal history of other diseases of the circulatory system (8) Tobacco abuse disorder Status: Chronic Category: Medical Code(s): Z72.0 - Tobacco use - Assessment and plan all Dx Assessment and Plan for all problems:: #COPD exacerbation: #Acute on chronic hypoxic hypercarbic respiratory failure: 65-year-old greater than [id number] smoking history. Positive sick contacts. Presented worsening respiratory failure. CXR On admission showed airspace disease. Patient also noted hypercarbic respiratory and was initiated on BiPAP and was eventually changed to high flow nasal cannula and today has successfully weaned to 4 L nasal cannula. Sputum cultures growing Serratia sensitive to levofloxacin. Patient saturating 88% on room air at rest today. We will continue oxygen therapy and will reevaluate in his next clinic visit Plan: -Continue oxygen supplementation to maintain O2 saturation goal of 88 to 92%, patient need long-term oxygen therapy on discharge -Wean antibiotics to levofloxacin to complete a total of 7-day course -Continue DuoNebs every 6 hours scheduled along with budesonide every 12 schedule, patient can be discharged on home trilogy inhaler therapy along with DuoNebs every 6 hours as needed -Continue chest percussion therapy every 12 hours and the patient will
--- NOTE | 2021-03-18 11:04 | HMH.ACPN ---
Internal Medicine - PN: Subj *Date: 03/18/21 *Time: 11:04 Exam Vital signs and Labs for Last 24 Hours: Temp Pulse Resp BP Pulse Ox 97.8 F 72 21 129/70 92 L 03/18/21 08:00 03/18/21 09:36 03/18/21 08:00 03/18/21 08:00 03/18/21 09:36 I & O for Last 24 hours: Intake & Output 03/15/21 03/16/21 03/17/21 03/18/21 23:59 23:59 23:59 23:59 Intake Total 1880 / 1880 760 / 760 900 / 900 240 / 240 Output Total 360 / 360 0 / 0 0 / 0 0 / 0 Balance 1520 / 1520 760 / 760 900 / 900 240 / 240 Weight 86 kg 89.386 kg 89.584 kg Microbiology Reports for the Last 24 Hours: Microbiology 03/15/21 21:20 Sputum - Expectorated Sputum Gram Stain - Final 03/15/21 21:20 Sputum - Expectorated Sputum Sputum Culture - Final Serratia marcescens Assessment and Plan (1) Acute exacerbation of chronic obstructive airways disease Status: Acute Category: Medical Code(s): J44.1 - Chronic obstructive pulmonary disease with (acute) exacerbation (2) Respiratory failure with hypoxia and hypercapnia Status: Acute Qualifiers: Chronicity: acute on chronic Qualified Code(s): J96.21 - Acute and chronic respiratory failure with hypoxia; J96.22 - Acute and chronic respiratory failure with hypercapnia Category: Medical Code(s): J96.91 - Respiratory failure, unspecified with hypoxia; J96.92 - Respiratory failure, unspecified with hypercapnia (3) Community acquired pneumonia Status: Acute Qualifiers: Laterality: unspecified laterality Qualified Code(s): J18.9 - Pneumonia, unspecified organism Category: Medical Code(s): J18.9 - Pneumonia, unspecified organism (4) Hypothyroidism Status: Chronic Category: Medical Code(s): E03.9 - Hypothyroidism, unspecified (5) CAD (coronary artery disease) Status: Chronic Qualifiers: Coronary Disease-Associated Artery/Lesion type: [place] artery [place] vs. transplanted heart: [place] heart Associated angina: without angina Qualified Code(s): I25.10 - Atherosclerotic heart disease of [place] coronary artery without angina pectoris Category: Medical Code(s): I25.10 - Atherosclerotic heart disease of [place] coronary artery without angina pectoris (6) HLD (hyperlipidemia) Status: Chronic Qualifiers: Hyperlipidemia type: mixed hyperlipidemia Qualified Code(s): E78.2 - Mixed hyperlipidemia Category: Medical Code(s): E78.5 - Hyperlipidemia, unspecified (7) History of ASCVD Status: Chronic Category: Medical Code(s): Z86.79 - Personal history of other diseases of the circulatory system (8) Tobacco abuse disorder Status: Chronic Category: Medical Code(s): Z72.0 - Tobacco use The patient's infection will respond to the chosen ABx?: Yes Is the patient receiving the right drug, dose, and route?: Yes Could a more targeted ABx be ordered?: No (SERRATIA SENSITIVE TO LEVAQUIN)
[2021-03-18 12:00] VITALS: BP 107/58; PULSE 72; RESP 20; TEMP 36.6; O2SAT 93
--- NOTE | 2021-03-18 17:38 | HMH.DCSUM ---
General - General Admission date:: 03/14/21 <Kenji James - 04/11/21 23:01> 03/14/21 <Chela Braga - 03/18/21 17:57> Discharge date: 03/18/21 <Chela Braga - 03/18/21 17:57> HPI HPI: Mr. Medeiros is a 65-year-old patient with a history of hypertension, hyperlipidemia, gout, hypothyroidism, allergic rhinitis, COPD, recurring S VT/DVT, and tobacco addiction who presented to [facility] emergency room for evaluation due to progressive shortness of breath. He started feeling ill the previous week with copious sinus drainage and head congestion. He was Using his oxygen at night at 2 L/min. He described a worsening cough along with shortness of breath. He continued to smoke. With evaluation in the emergency room he was given an albuterol/ ipratropium neb treatment, 40-minute milligrams of Lasix IV, and started on Rocephin and Zithromax as well as steroids. He was then admitted for further evaluation and treatment. Chest x-ray did show COPD with interstitial disease and mild airspace disease. The following a.m. patient stated he felt somewhat better. He was on a high flow oxygen at 40%. He stated the cough was better. He denied chest pain. He was getting ready to eat his breakfast. He stated he did not sleep well due to nursing checking on him. <Chela Braga - 03/18/21 17:57> Hospital Course Hospital Course: On admission patient required Vapotherm in order to keep his O2 sats satisfactory. He was started on Rocephin and Zithromax as well as scheduled duo nebs and IV steroids. The following day he was breathing easier and cough was less. He was able to ambulate to the bathroom. Vapotherm remained at 40%. Initially he was unable to be weaned from Vapotherm to nasal cannula. He was seen by pulmonology who recommended to wean him to 4-6 L per nasal cannula to maintain O2 sats between 88 to 92%. He also recommended to transition patient to Levaquin for total of 7 days depending on the final sputum results at discharge as well as duo nebs every 6 hours and budesonide every 12 hours. He also initiated chest percussion therapy every 12 hours The patient was to be discharged with a flutter valve. Dr. Sosa also noted a pulmonary nodule that was greater than 1 cm in size to be followed by PET scan which patient had been unable to afford. Plans for follow-up in the pulmonary clinic in 2 weeks with a repeat CT of the chest with contrast and at that time lee further determine whether need for biopsy or PET scan. On 03/18/2021 patient was comfortable. He was weaned successfully to nasal cannula at 4 L. He admitted improvement in his symptoms. On 03/18/2021 patient was stable for discharge. Follow-up with Dr. James on 03/26/2021 and with Rhinology as well in 2 to 3 weeks. Will be continue on Levaquin for 7 more days. Other medications as per medication reconciliation sheet. See DATA for specific test results. <Chela Braga - 03/18/21 17:57> Objective Vital signs: Temp Pulse Resp BP Pulse Ox 97.8 F 72 20 107/58 L 93 L 03/18/21 12:00 03/18/21 12:00 03/18/21 12:00 03/18/21 12:00 03/18/21 12:00 <Kenji James - 04/11/21 23:01> Temp Pulse Resp BP Pulse Ox 97.8 F 72 20 107/58 L 93 L 03/18/21 12:00 03/18/21 12:00 03/18/21 12:00 03/18/21 12:00 03/18/21 12:00 <Chela Braga - 03/18/21 17:57> Narrative: Exam Vital signs and Labs for Last 24 Hours: Temp Pulse Resp BP Pulse Ox 97.8 F 76 21 129/70 90 L 03/18/21 08:00 03/18/21 08:00 03/18/21 08:00 03/18/21 08:00 03/18/21 08:00 I & O for Last 24 hours: Intake & Output 03/15/21 03/16/21 03/17/21 03/18/21 11:59 11:59 11:59 11:59 Intake Total 1030 / 1030 1180 / 1180 660 / 660 960 / 960 Output Total 360 / 360 0 / 0 0 / 0 0 / 0 Balance 670 / 670 1180 / 1180 660 / 660 960 / 960 Weight 189 lb 9.561 oz 197 lb 1 oz 197 lb 8 oz Microbiology Reports for the Last 24
== END 2021-03-18 13:30 | disposition home or self-care (01) | DRG 193 ==
LOC: UTC 12:01 → ER 12:40 → 2ND 15:48
PROVIDERS: Admitting Provider Family Medicine; Emergency Provider Emergency Medicine; PCP Family Medicine; Visit Provider Family Medicine
DX: J18.9 Pneumonia, unspecified organism (principal); J96.22 Acute and chronic respiratory failure with hypercapnia; J96.01 Acute respiratory failure with hypoxia; J44.1 Chronic obstructive pulmonary disease with (acute) exacerbation; J44.0 Chronic obstructive pulmonary disease with (acute) lower respiratory infection; Z20.822 Contact with and (suspected) exposure to COVID-19; I25.10 Atherosclerotic heart disease of native coronary artery without angina pectoris; I10 Essential (primary) hypertension; Z95.5 Presence of coronary angioplasty implant and graft; F17.210 Nicotine dependence, cigarettes, uncomplicated; Z86.718 Personal history of other venous thrombosis and embolism; E78.5 Hyperlipidemia, unspecified; I25.2 Old myocardial infarction; Z85.828 Personal history of other malignant neoplasm of skin; E03.9 Hypothyroidism, unspecified
CPT/HCPCS: 71045; 80053; 82803; 83605; 85025; 87040; 87070; 87077; 87186; 87205; 94640; 94760; 94761; 96374; 96375; 97161; 97166; 99285; J0456; U0003

== ENCOUNTER → 2021-04-06 14:41 | Outpatient (CLI) | payer MEDICARE, MEDICAID, SELFPAY ==
--- NOTE | 2021-04-06 14:41 | CT_ITS ---
PROCEDURE: CT CHEST WO CON CLINICAL INDICATION: Lung nodule follow-up COMPARISON: CT CT LUNG SCREENING from 11/19/2020 TECHNIQUE: Axial images obtained with sagittal and coronal reformats. All CT scans at the facility use one or more dose reduction, viz: automated exposure control, ma/kV adjustment per patient size (including targeted exams where dose is matched to indication, i.e. head), or iterative reconstruction technique. FINDINGS: HEART AND MEDIASTINAL STRUCTURES: There is scattered small mediastinal nodes. Main pulmonary artery is enlarged at 3.9 cm with a pulmonary artery ratio greater than 1 suggesting pulmonary arterial hypertension. Coronary artery calcifications and/or stents noted. LUNGS AND PLEURAL SPACES: COPD changes. Old granulomatous disease. Persistent subpleural nodule in the right upper lobe posteriorly with a maximum transverse dimension of 17 mm and a maximum AP dimension 10 mm with a nodular contour along the deep surface. The nodule appears slightly more prominent compared to the previous exam and is suspicious for neoplasm. The nodule is deep to the posterior aspect of the right 5th rib precluding CT-guided percutaneous FNA. 2 mm nodular opacity is noted in the left upper lobe unchanged image 24 series 3 previously noted right upper lobe infiltrate has improved BONY STRUCTURES: Degenerative changes thoracic spine. UPPER ABDOMEN: There is gynecomastia. An 8 mm hypodensity is present in the hepatic dome and may represent a hepatic cyst ADDITIONAL FINDINGS: No other significant abnormalities. IMPRESSION: Subpleural right upper lobe nodule appears slightly more prominent from the previous exam suspicious for neoplasm. COPD changes Dictated by: Collin Priest MD 04/06/2021 16:44 Collin Priest MD in [place] 04/06/2021 16:44
== END ==
PROVIDERS: PCP Family Medicine; Visit Provider Internal Medicine Pulmonary Disease
DX: R91.8 Other nonspecific abnormal finding of lung field (principal)
CPT/HCPCS: 71250

== ENCOUNTER → 2021-07-08 10:46 | Outpatient (CLI) | payer MEDICARE, MEDICAID, SELFPAY ==
--- NOTE | 2021-07-08 10:47 | CA_ITS ---
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 Laterality: Bilateral Indications: dizziness, JOHNSON, CAD, COPD, HTN, smoker Risk Factors Hypertension: Doppler Spectral Velocity Analysis ECA (R) 129.10/14.40 cm/s ECA (L) 287.00/25.00 cm/s dICA (R) 90.50/27.90 cm/s dICA (L) 100.20/34.70 cm/s James (R) 111.70/42.40 cm/s James (L) 101.10/31.80 cm/s pICA (R) 96.30/27.00 cm/s pICA (L) 113.70/39.50 cm/s dCCA (R) 53.30/13.50 cm/s dCCA (L) 60.70/15.40 cm/s pCCA (R) 106.20/16.30 cm/s pCCA (L) 133.20/17.90 cm/s Vert (R) 69.30/27.90 cm/s Vert (L) 49.40/12.90 cm/s ICA/CCA 2.10 ICA/CCA 1.87 Findings Duplex evaluation demonstrates stenosis of the right proximal internal carotid artery in the range of 20-49% with PSV <140 cm/sec, EDV <100 cm/sec, and IC/CC Ratio <4.0. Duplex evaluation demonstrates stenosis of the left proximal internal carotid artery in the range of 20-49% with PSV <140 cm/sec, EDV <100 cm/sec, and IC/CC Ratio <4.0. Conclusion Duplex evaluation demonstrates stenosis of the right proximal internal carotid artery in the range of 20-49% with PSV <140 cm/sec, EDV <100 cm/sec, and IC/CC Ratio <4.0. Duplex evaluation demonstrates stenosis of the left proximal internal carotid artery in the range of 20-49% with PSV <140 cm/sec, EDV <100 cm/sec, and IC/CC Ratio <4.0. Electronically signed by : Collin Priest MD 07/08/2021 14:25:12
== END ==
PROVIDERS: PCP Family Medicine; Visit Provider Physician Assistant
DX: R42 Dizziness and giddiness (principal)
CPT/HCPCS: 93880

== ENCOUNTER → 2021-09-14 13:14 | Outpatient (CLI) | payer MEDICARE, MEDICAID, SELFPAY ==
--- NOTE | 2021-09-14 13:19 | CT_ITS ---
FINAL REPORT TECHNIQUE: Axial CT images were performed from the lung apices through the upper abdomen. Coronal reformats were submitted. This study was performed with techniques to keep radiation doses as low as reasonably achievable (ALARA). Individualized dose reduction techniques using automated exposure control or adjustment of mA and/or kV according to the patient's size were employed. CLINICAL HISTORY: NODULE followup COMPARISON: 04/06/2021 FINDINGS: There is worsening mediastinal adenopathy. A lower right paratracheal lymph node measures 23 mm and previously measured 13 mm. There is a lobular pleural based nodule in the lateral right upper thorax measuring 21 x 16 mm and is visually larger. There is a new small nodule in the anterior right upper lobe measuring 6 mm. There is mild emphysema. Limited imaging of the upper abdomen demonstrate a small right adrenal nodule which is nonspecific and may represent an adenoma. IMPRESSION: Worsening right upper lobe nodule most worrisome for worsening neoplastic involvement. New right upper lobe nodule worrisome for a pulmonary metastasis. Worsening mediastinal adenopathy concerning for worsening metastatic adenopathy. Stable nonspecific right adrenal nodule. Reviewed, Interpreted and Dictated by Noel Yi III, MD Transcribed by Zaina Scott Authenticated by Noel Yi III, MD on 09/14/2021 02:35:20 PM [facility]
== END ==
PROVIDERS: PCP Family Medicine; Visit Provider Internal Medicine Pulmonary Disease
DX: R91.8 Other nonspecific abnormal finding of lung field (principal)
CPT/HCPCS: 71250

== ENCOUNTER → 2021-09-24 12:20 | Outpatient (CLI) | payer MEDICARE, MEDICAID, SELFPAY | PROVIDERS: Visit Provider Internal Medicine Pulmonary Disease | DX: Z01.812 Encounter for preprocedural laboratory examination (principal); Z11.52 Encounter for screening for COVID-19; R91.1 Solitary pulmonary nodule | CPT/HCPCS: C9803; U0003; U0005 ==

== ENCOUNTER 2021-09-27 13:20 | Day surgery (SDC) | payer MEDICARE, MEDICAID, SELFPAY ==
[2021-09-22 10:13] VITALS: BMI 31.1
[2021-09-27] VITALS (9 sets, daily range): BP systolic 90–113; BP diastolic 50–70; PULSE 69–85; RESP 14–18; TEMP 36.2–36.3; O2SAT 90–95
--- NOTE | 2021-09-27 14:39 | P.PN_ITS ---
[facility] Anesthesia Checklist - Patient Identification Patient Identification: Arm Band - Structural Data Admitted From: Home Planned Operative Procedure/s: Bronchoscopy, EBUS, Transbronchial Bx Consent for Planned Operative Procedure(s) Verified: Yes Verified Documents: Surgical Consent, History and Physical - NPO Status Verified Time NPO: 00:00 - Additional verifications Anesthesia Reactions: No Hx Blood Transfusions: No Blood Transfusion Reaction: No - Airway Assessment C-Spine Mobility Assessed: Yes (mp2) TMJ Mobility Assessed: Yes Dentition: Edentulous - Neurological Assessment Level of Consciousness: Awake, Alert - Anesthesia Plan Anesthesia Risk discussed: Yes Anesthesia Plan: Verified ASA Class: III Anesthesia Type: General [facility] History I have reviewed the patient's past medical history: Yes Medical History: Reports:: Atherosclerotic Heart Disease, Cancer, Chronic Obstructive Pulmonary Disease (COPD), Coronary Artery Disease, Deep Vein Thrombosis, Hyperlipidemia, Hypertension, Lung Disease, Myocardial Infarction Denies:: Diabetes Mellitus Type 1, Diabetes Mellitus Type 2, Internal Pacemaker, MRSA, Seizures *Have you ever received a pneumonia vaccine?: Yes *Have you received a flu vaccine this season?: Yes Other Medical History: Reports: Cataracts, Hypothyroidism, Sinus Problems, Thyroid Disease, Other. Denies: Blood Transfusion Reaction Anesthesia experience/problems:: nac Other Surgeries: Yes: Cancer Surgery, Cardiac Catheterization, Colonoscopy, Coronary Stent, Skin Cancer Excision. No: Pacemaker Amputation: No Fractures: No - *Social History Last grade of school completed: High school graduate Smoking Status: Current every day smoker Tobacco Type: cigarettes # Packs/Day (cigarettes): 1 Alcohol Intake: former Alcohol Intake Frequency:: holidays/special occasions only Substance Use Type: denies use *Occupational Status:: retired, disabled Housing: house Household Members: spouse *Travel in the last 8 weeks: None Family Hx:: Coronary Artery Disease
--- NOTE | 2021-09-27 16:33 | HMH.BRONCH ---
- Procedure: Date: 09/27/21 Patient Date of :: 1955 Procedure Performed:: Bronchoscopy with endobronchial ultrasound and fine-needle aspiration Indications:: Lung nodule and lymphadenopathy Performing Provider:: Arie Sosa MD Referring Provider:: Dr. James Sedation:: General anesthesia Procedure:: Bronchoscopy with endobronchial ultrasound and fine-needle aspiration A clean EBUS bronchoscopy was advanced to the ET tube and lymph node surveillance was performed. Patient noted to have lymphadenopathy at stations 10 L, 4R, 10 R and 11 R. EBUS FNA with 5 passes each was performed in each of these lymph node stations. Pathologist at the bedside, reported adequacy of the lymph node tissue in the above-mentioned lymph node stations. Stations 4R and 10R are reported to have malignant cells. Waiting final diagnosis. Findings:: Please see the procedure note Recommendations:: Follow in the pulmonary clinic on 10/01/2020. Please schedule an oncology appointment Complications:: None Estimated blood obtained (mL): 10
--- NOTE | 2021-09-27 16:45 | SUR.PHASEI ---
1642- detailed report called to tremaine tom in post op at this time, Pt left in stable condition
--- NOTE | 2021-09-27 18:17 | HMH.ANESII ---
[facility] Anesthesia Record Part II Discharge Time: 16:43 Destination: Home PACU nurse assessment reviewed?: Yes Patient Condition:: Good Anesthesia Complications:: None none Swallowing reflex intact?: Yes Cyanosis?: No Blood Pressure: 113/52 Pulse Rate: 75 Temperature: 97.1 F Mental Status: Alert & Oriented Pain level:: 0 Nausea and/or vomitting:: None Intake, IV Amount: 0
== END 2021-09-27 17:34 | disposition home or self-care (01) ==
LOC: OR 13:22
PROVIDERS: PCP Family Medicine; Visit Provider Internal Medicine Pulmonary Disease
PROC: (CPT 31653; principal; 2021-09-27 13:30)
DX: R91.1 Solitary pulmonary nodule (principal); C76.8 Malignant neoplasm of other specified ill-defined sites; C77.9 Secondary and unspecified malignant neoplasm of lymph node, unspecified; J43.9 Emphysema, unspecified; F17.210 Nicotine dependence, cigarettes, uncomplicated; I25.10 Atherosclerotic heart disease of native coronary artery without angina pectoris; I10 Essential (primary) hypertension; Z95.5 Presence of coronary angioplasty implant and graft; E78.5 Hyperlipidemia, unspecified; Z79.899 Other long term (current) drug therapy
CPT/HCPCS: 31653; 88172; 88173; 88305; 88342; J2405

== ENCOUNTER → 2021-10-11 15:10 | Outpatient (CLI) | payer MEDICARE, MEDICAID, SELFPAY ==
--- NOTE | 2021-10-11 15:29 | MR_ITS ---
FINAL REPORT CLINICAL HISTORY: STAGE 3 LUNG CANCER. diagnosed x3wks ago. prior hx 19 yrs ago with cancer in lymph nodes. 20ml prohance given. FINDINGS: Multiplanar MR imaging of the brain was performed without and with contrast. There is mild age-appropriate atrophy. Scattered foci of increased T2 signal are seen in the cerebral white matter that have a nonspecific appearance but likely represent moderate chronic ischemic/gliotic changes. There is no evidence of intracranial hemorrhage or mass. No abnormal ventricular dilatation is identified. There is no evidence of shift of the midline structures. No abnormal extra-axial fluid collection is seen. No area of abnormal restricted diffusion is identified. The posterior fossa and brainstem have an unremarkable appearance. No abnormal contrast enhancement is seen. Normal major vessel vascular flow voids are seen. There is mucosal thickening in multiple sinuses. IMPRESSION: Mild atrophy and chronic ischemic/gliotic changes. No acute intracranial abnormality. Reviewed, Interpreted and Dictated by Noel Yi III, MD Transcribed by Zaina Scott Authenticated by Noel Yi III, MD on 10/11/2021 05:38:54 PM [facility]
[2021-10-11 15:47] LABS: Blood Urea Nitrogen 11 mg/dl (9-20); Estimated Glomerular Filt Rate 112 ml/min (>60); GFR (African American) 136 ML/MIN (>60)
== END ==
PROVIDERS: PCP Family Medicine; Visit Provider Internal Medicine Medical Oncology
DX: C34.90 Malignant neoplasm of unspecified part of unspecified bronchus or lung (principal); Z03.89 Encounter for observation for other suspected diseases and conditions ruled out
CPT/HCPCS: 36415; 70553; 82565; 84520; A9576

== ENCOUNTER 2021-10-18 10:27 | Outpatient (CLI) | payer MEDICARE, MEDICAID, SELFPAY ==
[2021-10-18] VITALS (18 sets, daily range): BP systolic 91–109; BP diastolic 49–63; PULSE 72–88; RESP 18; TEMP 36.6; O2SAT 92; BMI 31.6
[2021-10-18 10:55] LABS: Basophils # 0.1 K/mm3 (0-0.2); Basophils % 1.4 % (0.1-2.0); Eosinophils # 0.1 K/mm3 (0.0-0.4); Eosinophils % 2.6 % (0.1-12.0); Hematocrit 50.3 % (42.0-52.0); Hemoglobin 16.5 g/dL (14.1-18.0); Lymphocytes # 1.2 K/mm3 (0.7-4.5); Lymphocytes % 25.9 % (10-50); Mean Corpuscular HGB Conc 32.7 g/dL (31.8-35.4); Mean Corpuscular Hemoglobin 32.1 pg (27.0-31.2); Mean Corpuscular Volume 98.2 fl (80-94); Mean Platelet Volume 10.6 fl (7.4-10.4); Monocytes # 0.4 K/mm3 (0.1-1.0); Monocytes % 8.1 % (1.7-9.3); Neutrophils # 2.9 K/mm3 (1.8-7.8); Platelet Count 129 K/mm3 (142-424); Red Blood Count 5.12 M/mm3 (4.60-6.20); White Blood Count 4.6 K/mm3 (4.8-10.8)
[2021-10-18 10:57] LABS: Chloride 101 mmol/L (98-107); Potassium 4.2 mmoL/L (3.5-5.1); Sodium 139 mmol/L (136-145)
[2021-10-18 11:00] LABS: Anion Gap 10.2 mEq/L (5-15); Blood Urea Nitrogen 12 mg/dl (9-20); Calcium 8.7 mg/dl (8.4-10.2); Carbon Dioxide 32 mmol/L (22.0-30.0); Creatinine Clearance Estimated 96 mL/min (50-200); Estimated Glomerular Filt Rate 84 ml/min (>60); GFR (African American) 102 ML/MIN (>60); Glucose 100 mg/dl (74-100)
== END 2021-10-18 16:28 | disposition home or self-care (01) ==
LOC: INF 10:28
PROVIDERS: PCP Family Medicine; Visit Provider Internal Medicine Medical Oncology
DX: Z51.11 Encounter for antineoplastic chemotherapy (principal); C34.90 Malignant neoplasm of unspecified part of unspecified bronchus or lung; Z71.3 Dietary counseling and surveillance
CPT/HCPCS: 80048; 85025; 96413; 96415; 96417; 97803; J2469; J9045; J9267

== ENCOUNTER 2021-10-25 10:24 | Outpatient (CLI) | payer MEDICARE, MEDICAID, SELFPAY ==
[2021-10-25] VITALS (10 sets, daily range): BP systolic 95–116; BP diastolic 54–64; PULSE 81–92; RESP 20; TEMP 36.4; O2SAT 97–98; BMI 31.1
[2021-10-25 11:04] LABS: Basophils % 1.5 % (0.1-2.0); Eosinophils # 0.1 K/mm3 (0.0-0.4); Eosinophils % 2.8 % (0.1-12.0); Hematocrit 48.8 % (42.0-52.0); Hemoglobin 15.9 g/dL (14.1-18.0); Lymphocytes # 0.7 K/mm3 (0.7-4.5); Lymphocytes % 24.4 % (10-50); Mean Corpuscular HGB Conc 32.5 g/dL (31.8-35.4); Mean Corpuscular Hemoglobin 32.6 pg (27.0-31.2); Mean Corpuscular Volume 100.3 fl (80-94); Mean Platelet Volume 10.7 fl (7.4-10.4); Monocytes # 0.1 K/mm3 (0.1-1.0); Monocytes % 4.1 % (1.7-9.3); Neutrophils % 67.2 % (37.0-80.0); Platelet Count 128 K/mm3 (142-424); Red Blood Count 4.87 M/mm3 (4.60-6.20); White Blood Count 2.9 K/mm3 (4.8-10.8)
[2021-10-25 11:12] LABS: Blood Urea Nitrogen 17 mg/dl (9-20); Carbon Dioxide 34 mmol/L (22.0-30.0); Chloride 100 mmol/L (98-107); Creatinine Clearance Estimated 94 mL/min (50-200); Estimated Glomerular Filt Rate 112 ml/min (>60); GFR (African American) 136 ML/MIN (>60); Glucose 150 mg/dl (74-100); Sodium 140 mmol/L (136-145)
== END 2021-10-25 15:44 | disposition home or self-care (01) ==
LOC: INF 10:25
PROVIDERS: PCP Family Medicine; Visit Provider Internal Medicine Medical Oncology
DX: Z51.11 Encounter for antineoplastic chemotherapy (principal); C34.90 Malignant neoplasm of unspecified part of unspecified bronchus or lung
CPT/HCPCS: 80048; 85025; 96413; 96415; 96417; J2469; J9045; J9267

== ENCOUNTER 2021-11-04 09:28 | Outpatient (CLI) | payer MEDICARE, MEDICAID, SELFPAY ==
[2021-11-04] VITALS (10 sets, daily range): BP systolic 102–126; BP diastolic 56–88; PULSE 61–83; RESP 18; TEMP 36.3; O2SAT 94–95; BMI 26.3
[2021-11-04 09:54] LABS: Basophils % 1.3 % (0.1-2.0); Eosinophils % 1.2 % (0.1-12.0); Hematocrit 45.7 % (42.0-52.0); Hemoglobin 14.8 g/dL (14.1-18.0); Lymphocytes # 0.6 K/mm3 (0.7-4.5); Lymphocytes % 23.4 % (10-50); Mean Corpuscular HGB Conc 32.3 g/dL (31.8-35.4); Mean Corpuscular Hemoglobin 32.7 pg (27.0-31.2); Mean Corpuscular Volume 101.1 fl (80-94); Mean Platelet Volume 10.6 fl (7.4-10.4); Monocytes # 0.3 K/mm3 (0.1-1.0); Neutrophils # 1.5 K/mm3 (1.8-7.8); Neutrophils % 62.1 % (37.0-80.0); Platelet Count 107 K/mm3 (142-424); Red Blood Count 4.52 M/mm3 (4.60-6.20); Red Cell Distribution Width 15.9 % (11.5-17.5); White Blood Count 2.4 K/mm3 (4.8-10.8)
[2021-11-04 10:02] LABS: Chloride 103 mmol/L (98-107); Sodium 139 mmol/L (136-145)
[2021-11-04 10:04] LABS: Alanine Aminotransferase 20 U/L (12-78); Aspartate Amino Transferase 23 U/L (17-59); Blood Urea Nitrogen 11 mg/dl (9-20); Creatinine Clearance Estimated 80 mL/min (50-200); Estimated Glomerular Filt Rate 96 ml/min (>60); GFR (African American) 117 ML/MIN (>60)
[2021-11-04 10:05] LABS: Albumin Level 3.8 g/dl (3.5-5.0); Albumin/Globulin Ratio 1.4 (1.1-1.8); Alkaline Phosphatase 58 U/L (38-126); Bilirubin,Total 0.8 mg/dl (0.2-1.3); Calcium 8.1 mg/dl (8.4-10.2); Carbon Dioxide 34 mmol/L (22.0-30.0); Globulin 2.8 g/dL (1.3-3.2); Glucose 114 mg/dl (74-100); Total Protein,Serum 6.6 g/dl (6.3-8.2)
== END 2021-11-04 15:15 | disposition home or self-care (01) ==
LOC: INF 09:29
PROVIDERS: PCP Family Medicine; Visit Provider Internal Medicine Medical Oncology
DX: Z51.11 Encounter for antineoplastic chemotherapy (principal); C34.90 Malignant neoplasm of unspecified part of unspecified bronchus or lung
CPT/HCPCS: 80053; 85025; 96413; 96415; 96417; J2469; J9045; J9267

== ENCOUNTER 2021-11-11 09:24 | Outpatient (CLI) | payer MEDICARE, MEDICAID, SELFPAY ==
[2021-11-11 09:43] VITALS: BMI 31.1
--- NOTE | 2021-11-11 09:54 | PC.NURSE ---
11/11/21 0950 pt presents today for weekly chemo tx following radiation tx at [facility]. Lab called earlier and informed staff that the blood analyzer to check cbc specimens was down, currently being worked on, and that specimens were on divert to a different facility for testing at this time. Result turn around time is noted to be around 1 hr and 30 min. Pt chemo tx time for infusion is around 5-6 hrs, explained issue to pt and a plan to reschedule tx for tomorrow was put in place. Called [facility] and rescheduled daily appt tomorrow for 8am. Pt instructed to attend radiation appt in the am and come here for planned chemo tx after, pt agreeable to poc. Accessed pt per venipuncture to lac with butterfly needle to obtain blood needed, site secured using 2x2 gauze and coban. Pt d/c'd at this time to return tomorrow.
[2021-11-11 10:00] LABS: Chloride 100 mmol/L (98-107); Potassium 4.3 mmoL/L (3.5-5.1); Sodium 138 mmol/L (136-145)
[2021-11-11 10:03] LABS: Anion Gap 8.3 mEq/L (5-15); Blood Urea Nitrogen 14 mg/dl (9-20); Carbon Dioxide 34 mmol/L (22.0-30.0); Creatinine Clearance Estimated 94 mL/min (50-200); Estimated Glomerular Filt Rate 96 ml/min (>60); GFR (African American) 117 ML/MIN (>60)
[2021-11-11 10:04] LABS: Calcium 9.1 mg/dl (8.4-10.2); Glucose 156 mg/dl (74-100)
[2021-11-11 10:55] LABS: Basophils % 0.8 % (0.1-2.0); Hematocrit 46.8 % (42.0-52.0); Lymphocytes # 0.5 K/mm3 (0.7-4.5); Lymphocytes % 25.3 % (10-50); Mean Corpuscular Hemoglobin 31.4 pg (27.0-31.2); Mean Platelet Volume 8.8 fl (7.4-10.4); Monocytes # 0.2 K/mm3 (0.1-1.0); Monocytes % 8.2 % (1.7-9.3); Neutrophils # 1.3 K/mm3 (1.8-7.8); Neutrophils % 63.7 % (37.0-80.0); Platelet Count 89 K/mm3 (142-424); Red Blood Count 4.77 M/mm3 (4.60-6.20); Red Cell Distribution Width 15.2 % (11.5-17.5); White Blood Count 2.1 K/mm3 (4.8-10.8)
== END 2021-11-11 09:58 | disposition home or self-care (01) ==
LOC: INF 09:25
PROVIDERS: PCP Family Medicine; Visit Provider Internal Medicine Medical Oncology
DX: C34.90 Malignant neoplasm of unspecified part of unspecified bronchus or lung (principal)
CPT/HCPCS: 80048; 85025

== ENCOUNTER 2021-11-12 09:28 | Outpatient (CLI) | payer MEDICARE, MEDICAID, SELFPAY ==
[2021-11-12] VITALS (16 sets, daily range): BP systolic 96–119; BP diastolic 51–68; PULSE 58–75; RESP 16–18; O2SAT 92
== END 2021-11-12 14:50 | disposition home or self-care (01) ==
LOC: INF 09:28
PROVIDERS: PCP Family Medicine; Visit Provider Internal Medicine Medical Oncology
DX: Z51.11 Encounter for antineoplastic chemotherapy (principal); C34.90 Malignant neoplasm of unspecified part of unspecified bronchus or lung
CPT/HCPCS: 96413; 96415; 96417; J2469; J9045; J9267

== ENCOUNTER 2021-11-18 09:23 | Outpatient (CLI) | payer MEDICARE, MEDICAID, SELFPAY ==
[2021-11-18 09:30] VITALS: BMI 32.3
[2021-11-18 09:46] LABS: Basophils % 1.7 % (0.1-2.0); Eosinophils % 1.8 % (0.1-12.0); Hematocrit 45.2 % (42.0-52.0); Lymphocytes # 0.4 K/mm3 (0.7-4.5); Lymphocytes % 22.6 % (10-50); Mean Corpuscular HGB Conc 33.3 g/dL (31.8-35.4); Mean Corpuscular Hemoglobin 32.9 pg (27.0-31.2); Mean Corpuscular Volume 98.7 fl (80-94); Mean Platelet Volume 10.8 fl (7.4-10.4); Monocytes # 0.1 K/mm3 (0.1-1.0); Monocytes % 3.7 % (1.7-9.3); Neutrophils # 1.2 K/mm3 (1.8-7.8); Neutrophils % 70.1 % (37.0-80.0); Platelet Count 59 K/mm3 (142-424); Red Blood Count 4.58 M/mm3 (4.60-6.20); Red Cell Distribution Width 16.2 % (11.5-17.5); White Blood Count 1.7 K/mm3 (4.8-10.8)
[2021-11-18 09:51] LABS: Chloride 101 mmol/L (98-107)
[2021-11-18 09:52] LABS: Sodium 138 mmol/L (136-145)
[2021-11-18 09:54] LABS: Alanine Aminotransferase 22 U/L (12-78); Alkaline Phosphatase 56 U/L (38-126); Aspartate Amino Transferase 22 U/L (17-59); Bilirubin,Total 1.2 mg/dl (0.2-1.3); Blood Urea Nitrogen 14 mg/dl (9-20); Carbon Dioxide 32 mmol/L (22.0-30.0); Creatinine Clearance Estimated 97 mL/min (50-200); Estimated Glomerular Filt Rate 96 ml/min (>60); GFR (African American) 116 ML/MIN (>60)
[2021-11-18 09:55] LABS: Albumin/Globulin Ratio 1.4 (1.1-1.8); Calcium 9.2 mg/dl (8.4-10.2); Globulin 2.8 g/dL (1.3-3.2); Glucose 138 mg/dl (74-100); Total Protein,Serum 6.8 g/dl (6.3-8.2)
== END 2021-11-18 10:05 | disposition home or self-care (01) ==
LOC: INF 09:25
PROVIDERS: PCP Family Medicine; Visit Provider Internal Medicine Medical Oncology
DX: C34.90 Malignant neoplasm of unspecified part of unspecified bronchus or lung (principal)
CPT/HCPCS: 80053; 85025

== ENCOUNTER 2021-11-26 09:11 | Outpatient (CLI) | payer MEDICARE, MEDICAID, SELFPAY ==
[2021-11-26] VITALS (9 sets, daily range): BP systolic 97–113; BP diastolic 46–62; PULSE 54–67; RESP 18; TEMP 36.5; O2SAT 96–97; BMI 32.3
[2021-11-26 09:34] LABS: Basophils % 0.7 % (0.1-2.0); Eosinophils % 1.7 % (0.1-12.0); Hematocrit 44.3 % (42.0-52.0); Hemoglobin 14.6 g/dL (14.1-18.0); Lymphocytes # 0.6 K/mm3 (0.7-4.5); Lymphocytes % 24.6 % (10-50); Mean Corpuscular HGB Conc 32.8 g/dL (31.8-35.4); Mean Corpuscular Volume 100.6 fl (80-94); Mean Platelet Volume 10.6 fl (7.4-10.4); Monocytes # 0.4 K/mm3 (0.1-1.0); Monocytes % 16.2 % (1.7-9.3); Neutrophils # 1.3 K/mm3 (1.8-7.8); Neutrophils % 56.7 % (37.0-80.0); Platelet Count 87 K/mm3 (142-424); Red Blood Count 4.41 M/mm3 (4.60-6.20); Red Cell Distribution Width 17.5 % (11.5-17.5); White Blood Count 2.4 K/mm3 (4.8-10.8)
[2021-11-26 09:41] LABS: Alanine Aminotransferase 18 U/L (12-78); Albumin/Globulin Ratio 1.4 (1.1-1.8); Alkaline Phosphatase 61 U/L (38-126); Anion Gap 7.8 mEq/L (5-15); Aspartate Amino Transferase 20 U/L (17-59); Bilirubin,Total 0.6 mg/dl (0.2-1.3); Blood Urea Nitrogen 12 mg/dl (9-20); Calcium 9.3 mg/dl (8.4-10.2); Carbon Dioxide 34 mmol/L (22.0-30.0); Chloride 101 mmol/L (98-107); Creatinine Clearance Estimated 97 mL/min (50-200); Estimated Glomerular Filt Rate 96 ml/min (>60); GFR (African American) 116 ML/MIN (>60); Globulin 2.8 g/dL (1.3-3.2); Glucose 118 mg/dl (74-100); Potassium 3.8 mmoL/L (3.5-5.1); Sodium 139 mmol/L (136-145); Total Protein,Serum 6.8 g/dl (6.3-8.2)
== END 2021-11-26 14:48 | disposition home or self-care (01) ==
LOC: INF 09:13
PROVIDERS: PCP Family Medicine; Visit Provider Internal Medicine Medical Oncology
DX: Z51.11 Encounter for antineoplastic chemotherapy (principal); C34.91 Malignant neoplasm of unspecified part of right bronchus or lung
CPT/HCPCS: 80053; 85025; 96413; 96415; 96417; J2469; J9045; J9267

== ENCOUNTER 2021-12-02 09:30 | Outpatient (CLI) | payer MEDICARE, MEDICAID, SELFPAY ==
[2021-12-02] VITALS (17 sets, daily range): BP systolic 92–128; BP diastolic 37–81; PULSE 60–80; RESP 16–18; TEMP 35.8; O2SAT 94; BMI 32.3
[2021-12-02 10:07] LABS: Chloride 100 mmol/L (98-107); Potassium 3.9 mmoL/L (3.5-5.1); Sodium 140 mmol/L (136-145)
[2021-12-02 10:09] LABS: Basophils % 1.1 % (0.1-2.0); Blood Urea Nitrogen 17 mg/dl (9-20); Creatinine Clearance Estimated 97 mL/min (50-200); Eosinophils % 1.7 % (0.1-12.0); Estimated Glomerular Filt Rate 96 ml/min (>60); GFR (African American) 116 ML/MIN (>60); Hematocrit 43.2 % (42.0-52.0); Hemoglobin 14.7 g/dL (14.1-18.0); Lymphocytes # 0.4 K/mm3 (0.7-4.5); Lymphocytes % 24.1 % (10-50); Mean Corpuscular Hemoglobin 33.5 pg (27.0-31.2); Mean Corpuscular Volume 98.4 fl (80-94); Mean Platelet Volume 9.1 fl (7.4-10.4); Monocytes # 0.1 K/mm3 (0.1-1.0); Monocytes % 4.9 % (1.7-9.3); Neutrophils # 1.2 K/mm3 (1.8-7.8); Neutrophils % 68.1 % (37.0-80.0); Platelet Count 93 K/mm3 (142-424); Red Blood Count 4.39 M/mm3 (4.60-6.20); Red Cell Distribution Width 17.1 % (11.5-17.5); White Blood Count 1.8 K/mm3 (4.8-10.8)
[2021-12-02 10:10] LABS: Alanine Aminotransferase 22 U/L (12-78); Albumin/Globulin Ratio 1.5 (1.1-1.8); Alkaline Phosphatase 55 U/L (38-126); Anion Gap 10.9 mEq/L (5-15); Aspartate Amino Transferase 25 U/L (17-59); Bilirubin,Total 0.9 mg/dl (0.2-1.3); Calcium 9.2 mg/dl (8.4-10.2); Carbon Dioxide 33 mmol/L (22.0-30.0); Globulin 2.6 g/dL (1.3-3.2); Glucose 178 mg/dl (74-100); Total Protein,Serum 6.6 g/dl (6.3-8.2)
== END 2021-12-02 15:50 | disposition home or self-care (01) ==
LOC: INF 09:31
PROVIDERS: PCP Family Medicine; Visit Provider Internal Medicine Medical Oncology
DX: C34.90 Malignant neoplasm of unspecified part of unspecified bronchus or lung (principal); Z51.11 Encounter for antineoplastic chemotherapy
CPT/HCPCS: 80053; 85025; 96413; 96415; 96417; J2469; J9045; J9267

== ENCOUNTER → 2021-12-20 08:41 | Outpatient (CLI) | payer MEDICARE, MEDICAID, SELFPAY ==
--- NOTE | 2021-12-20 08:45 | CT_ITS ---
FINAL REPORT CLINICAL HISTORY: LUNG CANCER FOLLOW-UP COMPARISON: September 14, 2021 FINDINGS: CT CHEST WITH AND WITHOUT CONTRAST TECHNIQUE: Axial images through the chest were performed by computed tomography before and after the administration of IV contrast. This study was performed with techniques to keep radiation doses as low as reasonably achievable, (ALARA). Individualized dose reduction techniques using automated exposure control or adjustment of mA and/or kV according to the patient's size were employed. FINDINGS: There is no axillary adenopathy. There is lower right paratracheal adenopathy measuring 10 mm, was 23 mm. There is interval improvement in the right hilar adenopathy. The heart size is normal. There is no pericardial or pleural effusion. Note is made of gynecomastia. There is a pleural base nodule measuring 8 x 5 mm, was 21 x 16 mm. There is an anterior right upper lobe nodule measuring 4 mm, was 6 mm. There is a ground-glass opacity in the lateral right lung base measuring 20 mm, was 11 mm, nonspecific. IMPRESSION: Improved adenopathy and improved right upper lobe nodules, consistent with improved neoplastic involvement. Increased size of right upper lobe ground-glass opacity, nonspecific appearance. Reviewed, Interpreted and Dictated by Noel Yi III, MD Transcribed by Leslie Odom Authenticated and [facility]
--- NOTE | 2021-12-20 08:45 | CT_ITS ---
FINAL REPORT TECHNIQUE: Axial CT images of the abdomen and pelvis were obtained before and after the administration of IV contrast. Oral contrast was administered.This study was performed with techniques to keep radiation doses as low as reasonably achievable (ALARA). Individualized dose reduction techniques using automated exposure control or adjustment of mA and/or kV according to the patient''s size were employed. CLINICAL HISTORY: LUNG CANCER FOLLOW-UP COMPARISON: September 14, 2021 FINDINGS: Abdomen: The heart is normal in size. There is a less than 1 cm probable cyst in the right dome of the liver, stable. The gallbladder is normal in appearance. The spleen is unremarkable. The right adrenal nodule is stable from prior, favor adenoma. The pancreas has an unremarkable appearance. The kidneys enhance normally. There are moderate vascular calcifications. There is a 3.6 cm abdominal aortic aneurysm. There is a 2 cm right common iliac artery aneurysm. There is no free fluid or adenopathy. No mass or abnormal fluid collection is seen. Pelvis: The appendix is not well visualized. The urinary bladder is unremarkable. No inflammatory process is seen. There is no evidence of mass or adenopathy. There is no evidence of bowel obstruction. There is a moderate amount of retained stool in the colon. IMPRESSION: Stable right adrenal nodule. Abdominal aortic aneurysm measuring 3.6 cm and a 2 cm right common iliac artery aneurysm. No evidence of neoplastic involvement. Reviewed, Interpreted and Dictated by Noel Yi III, MD Transcribed by Leslie Odom Authenticated and [facility]
== END ==
PROVIDERS: PCP Family Medicine; Visit Provider Internal Medicine Medical Oncology
DX: C34.91 Malignant neoplasm of unspecified part of right bronchus or lung (principal)
CPT/HCPCS: 71270; 74178; Q9967

== ENCOUNTER 2021-12-30 09:06 | Outpatient (CLI) | payer MEDICARE, MEDICAID, SELFPAY ==
[2021-12-30 09:13] VITALS: BMI 32.3
[2021-12-30 09:47] LABS: Basophils % 0.6 % (0.1-2.0); Eosinophils # 0.1 K/mm3 (0.0-0.4); Eosinophils % 2.1 % (0.1-12.0); Hematocrit 40.9 % (42.0-52.0); Hemoglobin 13.7 g/dL (14.1-18.0); Lymphocytes # 0.6 K/mm3 (0.7-4.5); Lymphocytes % 22.8 % (10-50); Mean Corpuscular HGB Conc 33.4 g/dL (31.8-35.4); Mean Corpuscular Hemoglobin 34.2 pg (27.0-31.2); Mean Corpuscular Volume 102.3 fl (80-94); Mean Platelet Volume 10.3 fl (7.4-10.4); Monocytes # 0.3 K/mm3 (0.1-1.0); Neutrophils # 1.7 K/mm3 (1.8-7.8); Neutrophils % 62.5 % (37.0-80.0); Platelet Count 81 K/mm3 (142-424); Red Cell Distribution Width 18.2 % (11.5-17.5); White Blood Count 2.7 K/mm3 (4.8-10.8)
[2021-12-30 09:51] LABS: Alanine Aminotransferase 17 U/L (12-78); Albumin Level 3.9 g/dl (3.5-5.0); Albumin/Globulin Ratio 1.3 (1.1-1.8); Alkaline Phosphatase 60 U/L (38-126); Anion Gap 8.9 mEq/L (5-15); Aspartate Amino Transferase 33 U/L (17-59); Bilirubin,Total 0.6 mg/dl (0.2-1.3); Blood Urea Nitrogen 12 mg/dl (9-20); Calcium 9.4 mg/dl (8.4-10.2); Carbon Dioxide 33 mmol/L (22.0-30.0); Chloride 101 mmol/L (98-107); Creatinine Clearance Estimated 97 mL/min (50-200); Estimated Glomerular Filt Rate 112 ml/min (>60); GFR (African American) 136 ML/MIN (>60); Globulin 2.9 g/dL (1.3-3.2); Glucose 147 mg/dl (74-100); Potassium 3.9 mmoL/L (3.5-5.1); Sodium 139 mmol/L (136-145); Total Protein,Serum 6.8 g/dl (6.3-8.2)
[2021-12-30 10:20] LABS: Thyroid Stimulating Hormone 0.99 uIU/mL (0.465-4.68)
[2021-12-30 10:40] VITALS: BP 117/55; PULSE 71; RESP 18; O2SAT 97
[2021-12-30 11:00] VITALS: BP 120/60; PULSE 68; RESP 18
[2021-12-30 11:15] VITALS: BP 101/60; PULSE 64; RESP 18
[2021-12-30 11:30] VITALS: BP 120/61; PULSE 68; RESP 18
[2021-12-30 12:05] VITALS: BP 118/56; PULSE 61; RESP 18
== END 2021-12-30 12:05 | disposition home or self-care (01) ==
LOC: INF 09:07
PROVIDERS: PCP Family Medicine; Visit Provider Internal Medicine Medical Oncology
DX: Z51.11 Encounter for antineoplastic chemotherapy (principal); C34.91 Malignant neoplasm of unspecified part of right bronchus or lung; Z79.899 Other long term (current) drug therapy
CPT/HCPCS: 80053; 82024; 82533; 84443; 85025; 96413; J9173

== ENCOUNTER 2022-01-07 11:14 | Outpatient (CLI) | payer MEDICARE, MEDICAID, SELFPAY ==
[2022-01-07 11:18] VITALS: BMI 31.7
[2022-01-07 11:32] LABS: Basophils # 0.1 K/mm3 (0-0.2); Basophils % 1.7 % (0.1-2.0); Eosinophils # 0.1 K/mm3 (0.0-0.4); Hematocrit 42.9 % (42.0-52.0); Hemoglobin 13.7 g/dL (14.1-18.0); Lymphocytes # 0.8 K/mm3 (0.7-4.5); Lymphocytes % 24.3 % (10-50); Mean Corpuscular Hemoglobin 33.8 pg (27.0-31.2); Mean Corpuscular Volume 105.6 fl (80-94); Mean Platelet Volume 9.7 fl (7.4-10.4); Monocytes # 0.5 K/mm3 (0.1-1.0); Neutrophils # 1.9 K/mm3 (1.8-7.8); Neutrophils % 55.9 % (37.0-80.0); Platelet Count 94 K/mm3 (142-424); Red Blood Count 4.06 M/mm3 (4.60-6.20); Red Cell Distribution Width 17.6 % (11.5-17.5); White Blood Count 3.3 K/mm3 (4.8-10.8)
--- NOTE | 2022-01-07 11:32 | PC.NURSE ---
1124-BLOOD DRAWN FROM LEFT AC USING BUTTERFLY NEEDLE TO CHECK CBC AND CMP PRIOR TO DR ZACARIAS APPT.
[2022-01-07 11:39] LABS: Alanine Aminotransferase 15 U/L (12-78); Albumin/Globulin Ratio 1.4 (1.1-1.8); Alkaline Phosphatase 58 U/L (38-126); Anion Gap 8.8 mEq/L (5-15); Aspartate Amino Transferase 22 U/L (17-59); Bilirubin,Total 0.8 mg/dl (0.2-1.3); Blood Urea Nitrogen 12 mg/dl (9-20); Calcium 9.4 mg/dl (8.4-10.2); Carbon Dioxide 32 mmol/L (22.0-30.0); Chloride 101 mmol/L (98-107); Creatinine Clearance Estimated 95 mL/min (50-200); Estimated Glomerular Filt Rate 96 ml/min (>60); GFR (African American) 116 ML/MIN (>60); Globulin 2.9 g/dL (1.3-3.2); Glucose 121 mg/dl (74-100); Potassium 3.8 mmoL/L (3.5-5.1); Sodium 138 mmol/L (136-145); Total Protein,Serum 6.9 g/dl (6.3-8.2)
== END 2022-01-07 11:30 | disposition home or self-care (01) ==
LOC: INF 11:15
PROVIDERS: PCP Family Medicine; Visit Provider Internal Medicine Medical Oncology
DX: C34.90 Malignant neoplasm of unspecified part of unspecified bronchus or lung (principal)
CPT/HCPCS: 36415; 80053; 85025

== ENCOUNTER 2022-01-27 09:35 | Outpatient (CLI) | payer MEDICARE, MEDICAID, SELFPAY ==
[2022-01-27 09:39] VITALS: BMI 31.7
[2022-01-27 09:59] LABS: Basophils % 1.3 % (0.1-2.0); Eosinophils # 0.1 K/mm3 (0.0-0.4); Eosinophils % 3.1 % (0.1-12.0); Hemoglobin 14.2 g/dL (14.1-18.0); Lymphocytes # 0.7 K/mm3 (0.7-4.5); Lymphocytes % 20.7 % (10-50); Mean Corpuscular HGB Conc 30.9 g/dL (31.8-35.4); Mean Corpuscular Hemoglobin 34.4 pg (27.0-31.2); Mean Corpuscular Volume 111.5 fl (80-94); Mean Platelet Volume 10.8 fl (7.4-10.4); Monocytes # 0.4 K/mm3 (0.1-1.0); Monocytes % 12.2 % (1.7-9.3); Neutrophils % 62.7 % (37.0-80.0); Platelet Count 102 K/mm3 (142-424); Red Blood Count 4.13 M/mm3 (4.60-6.20); Red Cell Distribution Width 16.3 % (11.5-17.5); White Blood Count 3.2 K/mm3 (4.8-10.8)
[2022-01-27 10:03] LABS: Chloride 100 mmol/L (98-107)
[2022-01-27 10:04] LABS: Potassium 3.9 mmoL/L (3.5-5.1); Sodium 139 mmol/L (136-145)
[2022-01-27 10:06] LABS: Alanine Aminotransferase 16 U/L (12-78); Alkaline Phosphatase 65 U/L (38-126); Aspartate Amino Transferase 24 U/L (17-59); Bilirubin,Total 0.8 mg/dl (0.2-1.3); Blood Urea Nitrogen 12 mg/dl (9-20); Creatinine Clearance Estimated 95 mL/min (50-200); Estimated Glomerular Filt Rate 84 ml/min (>60); GFR (African American) 102 ML/MIN (>60)
[2022-01-27 10:07] LABS: Albumin Level 4.2 g/dl (3.5-5.0); Albumin/Globulin Ratio 1.5 (1.1-1.8); Anion Gap 7.9 mEq/L (5-15); Calcium 8.7 mg/dl (8.4-10.2); Carbon Dioxide 35 mmol/L (22.0-30.0); Globulin 2.8 g/dL (1.3-3.2); Glucose 173 mg/dl (74-100)
[2022-01-27 10:38] LABS: Thyroid Stimulating Hormone 7.55 uIU/mL (0.465-4.68)
[2022-01-27 10:50] VITALS: BP 121/62; PULSE 78; RESP 18; O2SAT 97
[2022-01-27 11:20] VITALS: BP 105/66; PULSE 71; RESP 18; O2SAT 97
[2022-01-27 12:00] VITALS: BP 145/61; PULSE 76; RESP 18; O2SAT 96
[2022-01-28 14:11] LABS: Adrenocorticotropic Hormone 19.4 pg/mL (7.2-63.3)
== END 2022-01-27 12:13 | disposition home or self-care (01) ==
LOC: INF 09:36
PROVIDERS: PCP Family Medicine; Visit Provider Internal Medicine Medical Oncology
DX: Z51.11 Encounter for antineoplastic chemotherapy (principal); C34.90 Malignant neoplasm of unspecified part of unspecified bronchus or lung; Z79.899 Other long term (current) drug therapy
CPT/HCPCS: 80053; 82024; 82533; 84443; 85025; 96413; J9173

== ENCOUNTER 2022-02-24 09:25 | Outpatient (CLI) | payer MEDICARE, MEDICAID, SELFPAY ==
[2022-02-24 09:33] VITALS: BMI 31.7
[2022-02-24 10:02] LABS: Basophils % 1.1 % (0.1-2.0); Eosinophils # 0.1 K/mm3 (0.0-0.4); Eosinophils % 3.1 % (0.1-12.0); Hematocrit 49.4 % (42.0-52.0); Hemoglobin 14.9 g/dL (14.1-18.0); Lymphocytes # 0.7 K/mm3 (0.7-4.5); Lymphocytes % 19.6 % (10-50); Mean Corpuscular HGB Conc 30.3 g/dL (31.8-35.4); Mean Corpuscular Hemoglobin 33.9 pg (27.0-31.2); Mean Platelet Volume 9.1 fl (7.4-10.4); Monocytes # 0.3 K/mm3 (0.1-1.0); Monocytes % 8.1 % (1.7-9.3); Neutrophils # 2.5 K/mm3 (1.8-7.8); Neutrophils % 68.2 % (37.0-80.0); Platelet Count 108 K/mm3 (142-424); Red Blood Count 4.41 M/mm3 (4.60-6.20); Red Cell Distribution Width 14.6 % (11.5-17.5); White Blood Count 3.7 K/mm3 (4.8-10.8)
[2022-02-24 10:07] LABS: Chloride 102 mmol/L (98-107); Potassium 3.8 mmoL/L (3.5-5.1); Sodium 139 mmol/L (136-145)
[2022-02-24 10:09] LABS: Blood Urea Nitrogen 15 mg/dl (9-20); Creatinine Clearance Estimated 95 mL/min (50-200); Estimated Glomerular Filt Rate 84 ml/min (>60); GFR (African American) 102 ML/MIN (>60)
[2022-02-24 10:10] LABS: Alanine Aminotransferase 17 U/L (12-78); Albumin Level 4.5 g/dl (3.5-5.0); Albumin/Globulin Ratio 1.6 (1.1-1.8); Alkaline Phosphatase 68 U/L (38-126); Anion Gap 7.8 mEq/L (5-15); Aspartate Amino Transferase 26 U/L (17-59); Bilirubin,Total 1.1 mg/dl (0.2-1.3); Calcium 9.5 mg/dl (8.4-10.2); Carbon Dioxide 33 mmol/L (22.0-30.0); Globulin 2.9 g/dL (1.3-3.2); Glucose 125 mg/dl (74-100); Total Protein,Serum 7.4 g/dl (6.3-8.2)
[2022-02-24 10:41] LABS: Thyroid Stimulating Hormone 8.71 uIU/mL (0.465-4.68)
[2022-02-24 11:00] VITALS: BP 111/64; PULSE 59; RESP 16; O2SAT 97
[2022-02-24 11:15] VITALS: BP 106/56; PULSE 72; RESP 16
[2022-02-24 11:30] VITALS: BP 109/55; PULSE 70; RESP 16
[2022-02-24 11:45] VITALS: BP 114/69; PULSE 71; RESP 16
[2022-02-24 12:00] VITALS: BP 122/68; PULSE 81; RESP 16
[2022-02-24 12:15] VITALS: BP 120/73; PULSE 73; RESP 16
[2022-02-25 15:36] LABS: Adrenocorticotropic Hormone 36.4 pg/mL (7.2-63.3)
== END 2022-02-24 12:25 | disposition home or self-care (01) ==
LOC: INF 09:26
PROVIDERS: PCP Family Medicine; Visit Provider Internal Medicine Medical Oncology
DX: Z51.11 Encounter for antineoplastic chemotherapy (principal); C34.90 Malignant neoplasm of unspecified part of unspecified bronchus or lung; Z79.899 Other long term (current) drug therapy
CPT/HCPCS: 80053; 82024; 82533; 84443; 85025; 96413; J9173

== ENCOUNTER → 2022-03-22 12:42 | Outpatient (CLI) | payer MEDICARE, MEDICAID, SELFPAY ==
[2022-03-22 12:53] VITALS: BMI 32.1
--- NOTE | 2022-03-22 12:57 | CT_ITS ---
FINAL REPORT CLINICAL HISTORY: LUNG CANCER, follow up after completing radiation. COMPARISON: December 20, 2021 FINDINGS: Axial CT images of the chest were obtained with contrast. Coronal reformatted images were also obtained. This study was performed with techniques to keep radiation doses as low as reasonably achievable, (ALARA). Individualized dose reduction techniques using automated exposure control or adjustment of mA and/or KV according to the patient's size were employed. There are small and borderline size mediastinal lymph nodes which are stable. There is no evidence of hilar mass or adenopathy. No axillary mass or adenopathy is identified. There is moderate stenosis of the proximal left subclavian artery which is stable. On lung window images, there are moderate changes of emphysema with mild pulmonary scarring. There is soft tissue in the periphery of the right upper thorax measuring up to 15 mm, stable. Ground-glass opacity in the lateral right lung base measures 15 mm and was 20 mm. There is a calcified granuloma in the left lung base. There is a 5 mm nodule in the right upper lobe which is stable. No new mass or nodule is identified. No localized pulmonary inflammatory process is identified. Limited images of the upper abdomen reveal a small low-attenuation mass in the right liver dome which is likely a cyst. There is mild gynecomastia which is stable. IMPRESSION: Stable soft tissue in the periphery of the right upper thorax. Partially improved ground-glass opacity in the lateral right lung base. Stable small right upper lobe nodule. Reviewed, Interpreted and Dictated by Noel Yi III, MD Transcribed by Payal Manuel Authenticated and [facility]
[2022-03-22 13:01] LABS: Eosinophils # 0.1 K/mm3 (0.0-0.4); Eosinophils % 3.9 % (0.1-12.0); Hematocrit 47.7 % (42.0-52.0); Hemoglobin 14.9 g/dL (14.1-18.0); Lymphocytes # 0.9 K/mm3 (0.7-4.5); Lymphocytes % 26.6 % (10-50); Mean Corpuscular HGB Conc 31.2 g/dL (31.8-35.4); Mean Corpuscular Volume 108.9 fl (80-94); Mean Platelet Volume 8.6 fl (7.4-10.4); Monocytes # 0.4 K/mm3 (0.1-1.0); Monocytes % 10.5 % (1.7-9.3); Neutrophils % 58.1 % (37.0-80.0); Platelet Count 111 K/mm3 (142-424); Red Blood Count 4.38 M/mm3 (4.60-6.20); Red Cell Distribution Width 13.6 % (11.5-17.5); White Blood Count 3.5 K/mm3 (4.8-10.8)
[2022-03-22 13:10] LABS: Alanine Aminotransferase 21 U/L (12-78); Albumin Level 4.2 g/dl (3.5-5.0); Albumin/Globulin Ratio 1.5 (1.1-1.8); Alkaline Phosphatase 70 U/L (38-126); Aspartate Amino Transferase 28 U/L (17-59); Bilirubin,Total 0.4 mg/dl (0.2-1.3); Blood Urea Nitrogen 10 mg/dl (9-20); Calcium 9.3 mg/dl (8.4-10.2); Carbon Dioxide 37 mmol/L (22.0-30.0); Chloride 100 mmol/L (98-107); Creatinine Clearance Estimated 96 mL/min (50-200); Estimated Glomerular Filt Rate 84 ml/min (>60); GFR (African American) 102 ML/MIN (>60); Globulin 2.8 g/dL (1.3-3.2); Glucose 140 mg/dl (74-100); Sodium 139 mmol/L (136-145)
== END ==
PROVIDERS: PCP Family Medicine; Visit Provider Internal Medicine Medical Oncology
DX: C34.90 Malignant neoplasm of unspecified part of unspecified bronchus or lung (principal)
CPT/HCPCS: 36415; 71260; 80053; 85025; Q9967

== ENCOUNTER 2022-03-24 09:35 | Outpatient (CLI) | payer MEDICARE, MEDICAID, SELFPAY ==
[2022-03-24 10:13] VITALS: BMI 32.1
[2022-03-24 10:42] LABS: Basophils % 0.6 % (0.1-2.0); Eosinophils # 0.1 K/mm3 (0.0-0.4); Eosinophils % 3.4 % (0.1-12.0); Hematocrit 45.4 % (42.0-52.0); Hemoglobin 14.3 g/dL (14.1-18.0); Lymphocytes # 0.8 K/mm3 (0.7-4.5); Lymphocytes % 22.7 % (10-50); Mean Corpuscular HGB Conc 31.5 g/dL (31.8-35.4); Mean Corpuscular Hemoglobin 33.9 pg (27.0-31.2); Mean Corpuscular Volume 107.5 fl (80-94); Mean Platelet Volume 9.1 fl (7.4-10.4); Monocytes # 0.4 K/mm3 (0.1-1.0); Monocytes % 10.4 % (1.7-9.3); Neutrophils # 2.1 K/mm3 (1.8-7.8); Neutrophils % 62.8 % (37.0-80.0); Platelet Count 91 K/mm3 (142-424); Red Blood Count 4.23 M/mm3 (4.60-6.20); Red Cell Distribution Width 13.2 % (11.5-17.5); White Blood Count 3.3 K/mm3 (4.8-10.8)
[2022-03-24 11:01] LABS: Alanine Aminotransferase 21 U/L (12-78); Albumin/Globulin Ratio 1.4 (1.1-1.8); Alkaline Phosphatase 67 U/L (38-126); Anion Gap 8.8 mEq/L (5-15); Aspartate Amino Transferase 27 U/L (17-59); Bilirubin,Total 0.3 mg/dl (0.2-1.3); Blood Urea Nitrogen 11 mg/dl (9-20); Calcium 8.8 mg/dl (8.4-10.2); Carbon Dioxide 36 mmol/L (22.0-30.0); Chloride 100 mmol/L (98-107); Creatinine Clearance Estimated 96 mL/min (50-200); Estimated Glomerular Filt Rate 84 ml/min (>60); GFR (African American) 102 ML/MIN (>60); Globulin 2.8 g/dL (1.3-3.2); Glucose 99 mg/dl (74-100); Potassium 3.8 mmoL/L (3.5-5.1); Sodium 141 mmol/L (136-145); Total Protein,Serum 6.8 g/dl (6.3-8.2)
[2022-03-24 11:25] VITALS: BP 113/50; PULSE 58; RESP 18; TEMP 36.6; O2SAT 96
[2022-03-24 11:35] LABS: Thyroid Stimulating Hormone 9.46 uIU/mL (0.465-4.68)
[2022-03-24 12:30] VITALS: BP 117/56; PULSE 58; RESP 18
[2022-03-25 13:24] LABS: Adrenocorticotropic Hormone 32.6 pg/mL (7.2-63.3)
== END 2022-03-24 12:30 | disposition home or self-care (01) ==
LOC: INF 09:36
PROVIDERS: PCP Family Medicine; Visit Provider Internal Medicine Medical Oncology
DX: Z51.11 Encounter for antineoplastic chemotherapy (principal); C34.91 Malignant neoplasm of unspecified part of right bronchus or lung; Z79.899 Other long term (current) drug therapy
CPT/HCPCS: 80053; 82024; 82533; 84443; 85025; 96413; J9173

== ENCOUNTER 2022-04-21 09:00 | Outpatient (CLI) | payer MEDICARE, MEDICAID, SELFPAY ==
[2022-04-21 09:06] VITALS: BMI 32.1
[2022-04-21 09:26] LABS: Basophils # 0.1 K/mm3 (0-0.2); Basophils % 1.5 % (0.1-2.0); Eosinophils # 0.1 K/mm3 (0.0-0.4); Eosinophils % 2.6 % (0.1-12.0); Hematocrit 52.6 % (42.0-52.0); Hemoglobin 16.4 g/dL (14.1-18.0); Lymphocytes # 0.7 K/mm3 (0.7-4.5); Mean Corpuscular HGB Conc 31.1 g/dL (31.8-35.4); Mean Corpuscular Hemoglobin 33.3 pg (27.0-31.2); Mean Platelet Volume 9.5 fl (7.4-10.4); Monocytes # 0.4 K/mm3 (0.1-1.0); Neutrophils # 2.5 K/mm3 (1.8-7.8); Neutrophils % 65.9 % (37.0-80.0); Platelet Count 104 K/mm3 (142-424); Red Blood Count 4.92 M/mm3 (4.60-6.20); Red Cell Distribution Width 13.9 % (11.5-17.5); White Blood Count 3.7 K/mm3 (4.8-10.8)
[2022-04-21 09:33] LABS: Chloride 94 mmol/L (98-107); Sodium 142 mmol/L (136-145)
[2022-04-21 09:34] LABS: Potassium 4.1 mmoL/L (3.5-5.1)
[2022-04-21 09:36] LABS: Alanine Aminotransferase 14 U/L (12-78); Albumin Level 4.7 g/dl (3.5-5.0); Albumin/Globulin Ratio 1.5 (1.1-1.8); Alkaline Phosphatase 74 U/L (38-126); Anion Gap 13.1 mEq/L (5-15); Aspartate Amino Transferase 25 U/L (17-59); Bilirubin,Total 0.7 mg/dl (0.2-1.3); Blood Urea Nitrogen 13 mg/dl (9-20); Carbon Dioxide 39 mmol/L (22.0-30.0); Creatinine Clearance Estimated 96 mL/min (50-200); Estimated Glomerular Filt Rate 74 ml/min (>60); GFR (African American) 90 ML/MIN (>60); Globulin 3.1 g/dL (1.3-3.2); Total Protein,Serum 7.8 g/dl (6.3-8.2)
[2022-04-21 09:37] LABS: Calcium 9.3 mg/dl (8.4-10.2); Glucose 142 mg/dl (74-100)
[2022-04-21 10:07] LABS: Thyroid Stimulating Hormone 5.27 uIU/mL (0.465-4.68)
[2022-04-21 11:00] VITALS: BP 105/59; PULSE 75; RESP 18; O2SAT 92
[2022-04-21 11:15] VITALS: BP 107/54; PULSE 78; RESP 16
[2022-04-21 11:30] VITALS: BP 107/60; PULSE 63; RESP 16
[2022-04-21 11:45] VITALS: BP 116/56; PULSE 75; RESP 16
[2022-04-21 12:00] VITALS: BP 112/59; PULSE 61; RESP 16
[2022-04-21 12:15] VITALS: BP 100/52; PULSE 79; RESP 16
[2022-04-22 15:06] LABS: Adrenocorticotropic Hormone 37.3 pg/mL (7.2-63.3)
== END 2022-04-21 12:15 | disposition home or self-care (01) ==
LOC: INF 09:01
PROVIDERS: PCP Family Medicine; Visit Provider Internal Medicine Medical Oncology
DX: Z51.11 Encounter for antineoplastic chemotherapy (principal); C34.91 Malignant neoplasm of unspecified part of right bronchus or lung; Z79.899 Other long term (current) drug therapy
CPT/HCPCS: 80053; 82024; 82533; 84443; 85025; 96413; J9173

== ENCOUNTER 2022-05-19 10:22 | Outpatient (CLI) | payer MEDICARE, MEDICAID, SELFPAY ==
[2022-05-19 10:24] VITALS: BMI 32.8
[2022-05-19 10:53] LABS: Chloride 98 mmol/L (98-107); Potassium 3.8 mmoL/L (3.5-5.1); Sodium 140 mmol/L (136-145)
[2022-05-19 10:55] LABS: Blood Urea Nitrogen 14 mg/dl (9-20); Creatinine Clearance Estimated 98 mL/min (50-200); Estimated Glomerular Filt Rate 84 ml/min (>60); GFR (African American) 102 ML/MIN (>60)
[2022-05-19 10:56] LABS: Alanine Aminotransferase 12 U/L (12-78); Albumin Level 4.1 g/dl (3.5-5.0); Albumin/Globulin Ratio 1.5 (1.1-1.8); Alkaline Phosphatase 63 U/L (38-126); Anion Gap 9.8 mEq/L (5-15); Aspartate Amino Transferase 22 U/L (17-59); Bilirubin,Total 0.7 mg/dl (0.2-1.3); Calcium 9.3 mg/dl (8.4-10.2); Carbon Dioxide 36 mmol/L (22.0-30.0); Globulin 2.8 g/dL (1.3-3.2); Glucose 84 mg/dl (74-100); Total Protein,Serum 6.9 g/dl (6.3-8.2)
[2022-05-19 11:00] LABS: Basophils # 0.1 K/mm3 (0-0.2); Basophils % 1.5 % (0.1-2.0); Eosinophils # 0.1 K/mm3 (0.0-0.4); Eosinophils % 3.1 % (0.1-12.0); Hematocrit 46.4 % (42.0-52.0); Hemoglobin 14.8 g/dL (14.1-18.0); Lymphocytes % 26.5 % (10-50); Mean Corpuscular HGB Conc 31.8 g/dL (31.8-35.4); Mean Corpuscular Hemoglobin 32.7 pg (27.0-31.2); Mean Corpuscular Volume 102.8 fl (80-94); Mean Platelet Volume 9.3 fl (7.4-10.4); Monocytes # 0.4 K/mm3 (0.1-1.0); Monocytes % 11.5 % (1.7-9.3); Neutrophils # 2.2 K/mm3 (1.8-7.8); Neutrophils % 57.3 % (37.0-80.0); Platelet Count 110 K/mm3 (142-424); Red Blood Count 4.52 M/mm3 (4.60-6.20); Red Cell Distribution Width 14.2 % (11.5-17.5); White Blood Count 3.8 K/mm3 (4.8-10.8)
[2022-05-19 11:27] LABS: Thyroid Stimulating Hormone 5.05 uIU/mL (0.465-4.68)
[2022-05-19 12:15] VITALS: BP 117/69; PULSE 74; RESP 18; TEMP 36.4; O2SAT 98
[2022-05-19 12:45] VITALS: BP 115/58; PULSE 58; RESP 18; O2SAT 98
[2022-05-19 13:30] VITALS: BP 112/65; PULSE 66; RESP 18; O2SAT 98
[2022-05-20 13:14] LABS: Adrenocorticotropic Hormone 33.9 pg/mL (7.2-63.3)
== END 2022-05-19 13:30 | disposition home or self-care (01) ==
LOC: INF 10:23
PROVIDERS: PCP Family Medicine; Visit Provider Internal Medicine Medical Oncology
DX: Z51.11 Encounter for antineoplastic chemotherapy (principal); C34.91 Malignant neoplasm of unspecified part of right bronchus or lung; Z79.899 Other long term (current) drug therapy
CPT/HCPCS: 80053; 82024; 82533; 84443; 85025; 96413; J9173

== ENCOUNTER 2022-06-13 12:40 | Inpatient (IN) | payer MEDICARE, MEDICAID, SELFPAY ==
[2022-06-13] VITALS (12 sets, daily range): BP systolic 112–140; BP diastolic 65–76; PULSE 88–115; RESP 20–27; TEMP 36.6–37.8; O2SAT 90–94; BMI 33.1; BMI 32.4
--- NOTE | 2022-06-13 12:53 | XR_ITS ---
FINAL REPORT CLINICAL HISTORY: soa COMPARISON: February 2021 FINDINGS: The heart size is normal. The mediastinum is within normal limits. Emphysematous changes. Chronic appearing interstitial changes in the lung bases. There is no pneumothorax. The bony thorax is intact. IMPRESSION: No acute cardiopulmonary process. Reviewed, Interpreted and Dictated by Shi Gibson MD Transcribed by Dion Fernandez Authenticated and [facility]
--- NOTE | 2022-06-13 12:55 | HMH.EDGENADL ---
Discharge Plan Disposition Chief Complaint: Shortness of Breath/Dyspnea Prescriptions Prescriptions: No Action ipratropium-albuterol 0.5 mg-3 mg(2.5 mg base)/3 mL solution for nebulization 3 ml IH QID PRN (Reason: shortness of breath or wheezing) 90 Days Qty: 360 3RF albuterol sulfate [ProAir HFA] 90 mcg/actuation HFA aerosol inhaler 2 puff IH QID PRN (Reason: shortness of breath or wheezing) 90 Days Qty: 8.5 3RF levothyroxine 100 mcg tablet 100 mcg PO DAILY metoprolol succinate 25 MG tablet extended release 24 hr 25 mg PO HS Rx Instructions: TAKE 1 TABLET BY MOUTH AT BEDTIME albuterol sulfate 8.5 GM HFA aerosol inhaler 1 inh IH Q6HP PRN (Reason: shortness of breath or wheezing) lovastatin 40 MG tablet 40 mg PO HS allopurinol 300 MG tablet 300 mg PO DAILY aspirin 81 mg tablet,delayed release (DR/EC) 81 mg PO BID spironolactone 25 MG tablet 25 mg PO DAILY furosemide 20 MG tablet 20 mg PO DAILY [id number] 1 EACH blister with device 1 inh IH DAILY Referrals Follow up/Referrals: Kenji James MD [Primary Care Provider] - See instructions Discharge ED Provider: Francisco Huerta General Adult HPI General Chief complaint: Shortness of Breath/Dyspnea Stated complaint: SOA Time Seen by Provider: 06/13/22 12:49 History of Present Illness HPI narrative: Patient presents with shortness of air and cough productive of sputum clear sputum since this past Monday. He describes symptoms as moderate and worse with exertion he denies chest pain. Related Data Home Medications Medication Instructions Recorded Confirmed allopurinol 300 mg tablet 300 mg PO DAILY GOUT 12/22/17 05/19/22 lovastatin 40 mg tablet 40 mg PO HS Cholesterol 12/22/17 05/19/22 aspirin 81 mg tablet,delayed 81 mg PO BID HEART HEALTH 08/24/20 05/19/22 release furosemide 20 mg tablet 20 mg PO DAILY Hypertension 03/14/21 05/19/22 spironolactone 25 mg tablet 25 mg PO DAILY Hypertension 03/14/21 05/19/22 albuterol sulfate 90 mcg/actuation 1 inh inhalation Q6HP PRN 10/25/21 05/19/22 aerosol inhaler shortness of breath or wheezing metoprolol succinate 25 mg 25 mg PO HS blood pressure 10/25/21 05/19/22 tablet,extended release 24 hr fluticasone fur. 100 mcg-umeclid 1 inh inhalation DAILY Breathing 01/27/22 05/19/22 62.5 mcg-vilant 25 mcg problems inhalat.powder levothyroxine 100 mcg tablet 100 mcg PO DAILY HYPOTHYROID 04/21/22 05/19/22 Previous Rx's Medication Instructions Recorded albuterol sulfate 90 mcg/actuation 2 puff inhalation QID PRN 01/26/22 aerosol inhaler (ProAir HFA) shortness of breath or wheezing 90 days #8.5 grams ipratropium 0.5 mg-albuterol 3 mg 3 ml inhalation QID PRN shortness 01/26/22 (2.5 mg base)/3 mL nebulization of breath or wheezing 90 days #360 soln mL Allergies Allergy/AdvReac Type Severity Reaction Status Date / Time No Known Drug Allergies Allergy Unknown Verified 05/19/22 10:48 [NKDA] [facility] Medical History Abnormal EKG Atherosclerotic heart disease CAD (coronary artery disease) Cancer Cataract CHF (congestive heart failure) COPD exacerbation Dizziness DVT (deep venous thrombosis) Dyspnea History of chemotherapy History of radiation therapy HLD (hyperlipidemia) Hypertension Hypotension Hypothyroidism Lung disease Myocardial infarction Pacemaker Sinus problem Thyroid disease Surgical History History of cardiac cath History of colonoscopy History of heart artery stent Family History Other Coronary artery disease Social History Smoking Status: Current every day smoker tobacco type: cigarettes packs per day: 1 alcohol intake: current substance use type: denies use 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
--- NOTE | 2022-06-13 12:59 | ECG_ITS ---
APPROVED REPORT Exam: Resting ECG HR:112 bpm ECG Measurements Heart Rate 112 AXES AL 145 P 70 QRSd 112 QRS 237 QT 311 T 64 QTc 377 Conclusion SINUS TACHYCARDIA RIGHT AXIS DEVIATION [QRS AXIS > 100] S1-S2-S3 PATTERN, CONSISTENT WITH PULMONARY DISEASE, RVH, OR NORMAL VARIANT PATTERN CONSISTENT WITH PULMONARY DISEASE RIGHT BUNDLE BRANCH BLOCK [120+ ms QRS DURATION, UPRIGHT V1, 40+ ms S IN I/aVL/V4/V5/V6] ABNORMAL ECG UNCONFIRMED REPORT Electronically signed by : Clark Garland MD 06/13/2022 21:09:33
[2022-06-13 13:08] LABS: Coronavirus 19, PCR Not Detected (NotDetected); Influenza B, PCR Not Detected (NotDetected)
[2022-06-13 13:09] LABS: Basophils % 0.8 % (0.1-2.0); Eosinophils % 0.6 % (0.1-12.0); Hematocrit 47.7 % (42.0-52.0); Hemoglobin 15.3 g/dL (14.1-18.0); Lymphocytes # 0.3 K/mm3 (0.7-4.5); Lymphocytes % 7.6 % (10-50); Mean Corpuscular Hemoglobin 32.9 pg (27.0-31.2); Mean Platelet Volume 8.8 fl (7.4-10.4); Monocytes # 0.4 K/mm3 (0.1-1.0); Monocytes % 10.2 % (1.7-9.3); Neutrophils # 3.2 K/mm3 (1.8-7.8); Neutrophils % 80.8 % (37.0-80.0); Platelet Count 88 K/mm3 (142-424); Red Blood Count 4.64 M/mm3 (4.60-6.20); Red Cell Distribution Width 13.8 % (11.5-17.5); White Blood Count 3.9 K/mm3 (4.8-10.8)
[2022-06-13 13:17] LABS: Alanine Aminotransferase 16 U/L (12-78); Albumin Level 4.4 g/dl (3.5-5.0); Albumin/Globulin Ratio 1.5 (1.1-1.8); Alkaline Phosphatase 73 U/L (38-126); Aspartate Amino Transferase 30 U/L (17-59); Bilirubin,Total 0.8 mg/dl (0.2-1.3); Blood Urea Nitrogen 21 mg/dl (9-20); Calcium 8.9 mg/dl (8.4-10.2); Carbon Dioxide 35 mmol/L (22.0-30.0); Chloride 88 mmol/L (98-107); Creatinine Clearance Estimated 90 mL/min (50-200); Estimated Glomerular Filt Rate 67 ml/min (>60); GFR (African American) 81 ML/MIN (>60); Glucose 129 mg/dl (74-100); Sodium 136 mmol/L (136-145); Total Protein,Serum 7.4 g/dl (6.3-8.2)
[2022-06-13 13:19] LABS: Lactic Acid 1.2 mmol/L (0.7-2.1)
[2022-06-13 13:28] LABS: NT Pro Brain Natriuretic Pep. 1270 pg/mL (0-125)
--- NOTE | 2022-06-13 13:30 | PC.NURSE ---
1330 PT PROVIDED SNACK AND WATER PER MD. PT REPOSITIONED IN BED, DAUGHTER AT BEDSIDE. NO FURTHER NEEDS
[2022-06-13 13:31] LABS: Influenza A, PCR Detected (NotDetected)
--- NOTE | 2022-06-13 13:36 | PC.NURSE ---
2005 CRITICAL LAB RECEIVED FROM VARINDER IN LAB, TROP 0.26. PT NAME AND R/V. DR. HERNANDEZ NOTIFIED
[2022-06-13 13:39] LABS: Troponin I 0.26 ng/ml (0.00-0.034)
--- NOTE | 2022-06-13 14:31 | PC.NURSE ---
9774 DR. HERNANDEZ SPEAKING WITH DR. DIETRICH FOR ADMISSION
--- NOTE | 2022-06-13 14:33 | PC.NURSE ---
CARE MANAGEMENT NOTIFIED OF ADMISSION
--- NOTE | 2022-06-13 15:31 | EXP.HP ---
History of Present Illness *Admission Date: 06/13/22 [facility] Medical History (Updated 06/13/22 @ 15:35 by Chela Braga APRN) AAA (abdominal aortic aneurysm) Abnormal EKG Atherosclerotic heart disease CAD (coronary artery disease) Cancer Cataract CHF (congestive heart failure) COPD exacerbation Dizziness DVT (deep venous thrombosis) Dyspnea Gout History of chemotherapy History of radiation therapy HLD (hyperlipidemia) Hypertension Hypotension Hypothyroidism Lung disease Melanoma Myocardial infarction Pacemaker Sinus problem Thyroid disease Tobacco abuse Surgical History (Updated 06/13/22 @ 15:36 by Chela Braga APRN) H/O melanoma excision History of cardiac cath History of colonoscopy History of heart artery stent Family History (Updated 06/13/22 @ 15:37 by Chela Braga APRN) Coronary artery disease AAA (abdominal aortic aneurysm) Social History (Updated 06/13/22 @ 14:54 by Sarai Koenig RN) Smoking Status: Current every day smoker tobacco type: cigarettes packs per day: 1 alcohol intake: current substance use type: denies use 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ional status: retired and disabled Travel in the last 8 weeks: None household members: spouse housing: house caffeine: Yes Meds Home Medications and Allergies Home Medications Medication Instructions Recorded Confirmed Type allopurinol 300 mg tablet 300 mg PO DAILY GOUT 12/22/17 05/19/22 History lovastatin 40 mg tablet 40 mg PO HS Cholesterol 12/22/17 05/19/22 History aspirin 81 mg tablet,delayed 81 mg PO BID HEART HEALTH 08/24/20 05/19/22 History release furosemide 20 mg tablet 20 mg PO DAILY Hypertension 03/14/21 05/19/22 History spironolactone 25 mg tablet 25 mg PO DAILY Hypertension 03/14/21 05/19/22 History albuterol sulfate 90 mcg/actuation 1 inh inhalation Q6HP PRN 10/25/21 05/19/22 History aerosol inhaler shortness of breath or wheezing metoprolol succinate 25 mg 25 mg PO HS blood pressure 10/25/21 05/19/22 History tablet,extended release 24 hr albuterol sulfate 90 mcg/actuation 2 puff inhalation QID PRN 01/26/22 05/19/22 Rx aerosol inhaler (ProAir HFA) shortness of breath or wheezing 90 days #8.5 grams ipratropium 0.5 mg-albuterol 3 mg 3 ml inhalation QID PRN shortness 01/26/22 05/19/22 Rx (2.5 mg base)/3 mL nebulization of breath or wheezing 90 days #360 soln mL fluticasone fur. 100 mcg-umeclid 1 inh inhalation DAILY Breathing 01/27/22 05/19/22 History 62.5 mcg-vilant 25 mcg problems inhalat.powder levothyroxine 112 mcg tablet 112 mcg PO DAILY THYROID 06/13/22 06/13/22 History New Prescriptions to Start Prescriptions: Allergies Allergy/AdvReac Type Severity Reaction Status Date / Time No Known Drug Allergies Allergy Unknown Verified 05/19/22 10:48 [NKDA] Exam Data for Last 24 hours Vital signs and Labs for Last 24 Hours: Temp Pulse Resp BP Pulse Ox 100.1 F H 112 H 20 140/70 91 L 06/13/22 12:41 06/13/22 13:30 06/13/22 12:41 06/13/22 13:30 06/13/22 13:30 Laboratory Results - last 24 hr 06/13/22 12:50: WBC 3.9 L, RBC 4.64, Hgb 15.3, Hct 47.7, MCV 103.0 H, MCH 32.9 H, MCHC 32.0, RDW 13.8, Plt Count 88 L, MPV 8.8, Neut % (Auto) 80.8 H, Lymph % (Auto) 7.6 L, [place] % (Auto) 10.2 H, Eos % (Auto) 0.6, Baso % (Auto) 0.8, Neut # (Auto) 3.2, Lymph # (Auto) 0.3 L, [place] # (Auto) 0.4, Eos # (Auto) 0.0, Baso # (Auto) 0.0 06/13/22 12:50: Sodium 136, Potassium 4.0, Chloride 88 L, Carbon Dioxide 35 H, Anion Gap 17.0 H, BUN 21 H, Creatinine 1.10, Estimated Creat Clear 90, Estimated GFR 67, Est GFR ( Amer) 81, Glucose 129 H, Calcium 8.9, Total Bilirubin 0.8, AST 30, ALT 16, Alkaline Phosphatase 73, Troponin I 0.26 H, NT-Pro-B Natriuret Pep 1270 H, Total Protein 7.4, Albumin 4.4, Globulin 3.0, Albumin/Globulin Ratio 1.5 06/13/22 12:50: Lactate 1.2 06/13/22 12:55: SARS-CoV-2 (PCR) Not detected, Influenza A Untype (PCR) Detected A, Influenza Type B (PCR) Not detected I &
--- NOTE | 2022-06-13 15:39 | PC.NURSE ---
REPORT GIVEN TO Shi FLETCHER RN
--- NOTE | 2022-06-13 15:58 | PC.NURSE ---
Rounded on patient; patient is sitting up on side of bed looking at his phone. He reports no needs at this time. Patient is aware that we are just waiting for him to go to his room assignment. He has no other needs at this time.
[2022-06-13 16:15] LABS: Troponin I 0.72 ng/ml (0.00-0.034)
--- NOTE | 2022-06-13 16:21 | PC.NURSE ---
Lab called with troponin of 0.72 Repeated and verified, notified
--- NOTE | 2022-06-13 16:38 | EXP.HP ---
History of Present Illness *Admission Date: 06/13/22 *Reason for visit:: Shortness of breath and generally not feeling well *History of present illness: Mr. Medeiros is a 66 year old male with an extensive medical history to include severe COPD, Melanoma, Gout, DVT, ,AAA. HTN, HLP, ASCVD,TOBACCO ADDICTION, and stage 111 lung cancer followed by Dr. Puente who presented to [facility] ER for progressive SOB. He states he received his Flu shot about 1 week ago and has not felt well since. He has had a fever and cough which is sometimes productive. He has been able to eat and drink although he has experienced some diarrhea. With evaluation in the ER he was febrile and noted to be + for Flu A; WBCs are 3.9. O2 sats are 90% on O2 at 4 LPM; Lactic was normal and TI was elevated at 0.72; CXR revealed NO acute CP process; He recieved 125mg of SM IV and Duoneb, He is to be admitted. [facility] Medical History (Updated 06/13/22 @ 17:17 by Francisco Huerta MD) AAA (abdominal aortic aneurysm) Abnormal EKG Atherosclerotic heart disease CAD (coronary artery disease) Cancer Cataract CHF (congestive heart failure) COPD exacerbation Dizziness DVT (deep venous thrombosis) Dyspnea Gout History of chemotherapy History of radiation therapy HLD (hyperlipidemia) Hypertension Hypotension Hypothyroidism Lung disease Melanoma Myocardial infarction Pacemaker Sinus problem Thyroid disease Tobacco abuse Surgical History (Updated 06/13/22 @ 15:36 by Chela Braga APRN) H/O melanoma excision History of cardiac cath History of colonoscopy History of heart artery stent Family History (Updated 06/13/22 @ 15:37 by Chela Braga APRN) Coronary artery disease AAA (abdominal aortic aneurysm) Social History (Updated 06/13/22 @ 14:54 by Sarai Koenig RN) Smoking Status: Current every day smoker tobacco type: cigarettes packs per day: 1 alcohol intake: current substance use type: denies use 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ional status: retired and disabled Travel in the last 8 weeks: None household members: spouse housing: house caffeine: Yes Review of Systems Constitutional Constitutional: Denies frequent falls, Reports headache(s) and Reports weakness Eyes Eyes: Denies change in vision ENT Ears, Nose, Mouth, and Throat: Reports otalgia (right), Reports headache(s) and Denies sore throat *Cardiovascular Cardiovascular: Denies chest pain, Reports dyspnea, Denies irregular heart rhythm and Reports leg edema *Respiratory Respiratory: Reports chest congestion, Reports cough, Reports dyspnea, Denies excessive phlegm production and Denies hemoptysis *Gastrointestinal Gastrointestinal: Denies heartburn, Denies hematochezia, Reports loose stools, Denies nausea and Denies vomiting *Genitourinary Genitourinary: Denies difficulty urinating and Reports urinary urgency *Musculoskeletal Musculoskeletal: Denies abnormal gait and Denies muscle weakness *Neurologic Neurologic: Denies abnormal gait, Denies confusion, Denies convulsions, Denies frequent falls, Reports headache(s) and Reports weakness Psychiatric Psychiatric: Denies confusion Meds Home Medications and Allergies Home Medications Medication Instructions Recorded Confirmed Type allopurinol 300 mg tablet 300 mg PO DAILY GOUT 12/22/17 06/13/22 History lovastatin 40 mg tablet 40 mg PO HS Cholesterol 12/22/17 06/13/22 History aspirin 81 mg tablet,delayed 81 mg PO BID HEART HEALTH 08/24/20 06/13/22 History release furosemide 20 mg tablet 20 mg PO DAILY PRN Edema 03/14/21 06/13/22 History spironolactone 25 mg tablet 25 mg PO DAILY Edema 03/14/21 06/13/22 History metoprolol succinate 25 mg 25 mg PO HS Hypertension 10/25/21 06/13/22 History tablet,extended release 24 hr albuterol sulfate 90 mcg/actuation 2 puff inhalation QID PRN 01/26/22 06/13/22 Rx aerosol inhaler (ProAir HFA) shortness of breath or wheezing 90 days #8.5 grams ipratropium 0.5 mg-albuterol 3 mg 3 ml inhalation QID PRN shortness 07
--- NOTE | 2022-06-13 16:42 | PC.NURSE ---
patient arrived to floor by wheelchair from ED
--- NOTE | 2022-06-13 20:00 | PC.NURSE ---
pt complains of headache, dr christianson called per tremaine cordon and received order for tylenol PO as needed.
[2022-06-13 20:03] LABS: Troponin I 0.72 ng/ml (0.00-0.034)
--- NOTE | 2022-06-13 20:09 | PC.NURSE ---
06/13/222008 pm, dr christianson called regarding troponin 0.72, no change from previous troponin, no new orders received at this time.
[2022-06-14] VITALS (17 sets, daily range): BP systolic 116–143; BP diastolic 62–79; PULSE 80–108; RESP 18–23; TEMP 36.5–36.9; O2SAT 87–95; BMI 32.4
--- NOTE | 2022-06-14 05:22 | PC.NURSE ---
pt rested well through the night, pt is alert and oriented, no acute distress, lung sounds with inspiratory and expiratory rhonchi noted, pt on 4L pnc with 02 sats 92-94%, mild edema 1+ noted to BLE, telemetry reveals NSR, sinus arrhythmia with occasional pvcs, pacs, no vte prophylaxis ordered at this time, will pass on in report to inform md upon rounds, troponin level 0.72 and md was made aware, pt denies any chest pain, pt did complain of headache relieved by tylenol, VSS.
--- NOTE | 2022-06-14 07:44 | HMH.PHAINT1 ---
Pharmacy Intervention Comments: Medication reconciliation completed via external fill history and patient interview. Of note, pharmacy has fills on the same day (06/13) for a 30 DS of levothyroxine 100 mcg daily and a 90 DS of levothyroxine 112 mcg daily. Patient said the doctor must have increased his dose of levothyroxine based on his TSH levels. Change reflected in home medication list. -Lulú Saucedo, PharmD Candidate 2022
--- NOTE | 2022-06-14 09:35 | EXP.PN ---
Subjective *Date: 06/14/22 *Time: 10:36 Interval history: Patient states he feels his breathing is little better today. He did rest a little bit last night. He states he ate breakfast.O2 sats are 93% on 4 L/min. Exam Data for Last 24 hours Vital signs and Labs for Last 24 Hours: Temp Pulse Resp BP Pulse Ox 98.1 F 95 H 18 123/70 93 L 06/14/22 07:28 06/14/22 07:28 06/14/22 07:28 06/14/22 07:28 06/14/22 08:00 Laboratory Results - last 24 hr 06/13/22 12:50: WBC 3.9 L, RBC 4.64, Hgb 15.3, Hct 47.7, MCV 103.0 H, MCH 32.9 H, MCHC 32.0, RDW 13.8, Plt Count 88 L, MPV 8.8, Neut % (Auto) 80.8 H, Lymph % (Auto) 7.6 L, [place] % (Auto) 10.2 H, Eos % (Auto) 0.6, Baso % (Auto) 0.8, Neut # (Auto) 3.2, Lymph # (Auto) 0.3 L, [place] # (Auto) 0.4, Eos # (Auto) 0.0, Baso # (Auto) 0.0 06/13/22 12:50: Sodium 136, Potassium 4.0, Chloride 88 L, Carbon Dioxide 35 H, Anion Gap 17.0 H, BUN 21 H, Creatinine 1.10, Estimated Creat Clear 90, Estimated GFR 67, Est GFR ( Amer) 81, Glucose 129 H, Calcium 8.9, Total Bilirubin 0.8, AST 30, ALT 16, Alkaline Phosphatase 73, Troponin I 0.26 H, NT-Pro-B Natriuret Pep 1270 H, Total Protein 7.4, Albumin 4.4, Globulin 3.0, Albumin/Globulin Ratio 1.5 06/13/22 12:50: Lactate 1.2 06/13/22 12:55: SARS-CoV-2 (PCR) Not detected, Influenza A Untype (PCR) Detected A, Influenza Type B (PCR) Not detected 06/13/22 15:45: Troponin I 0.72 H 06/13/22 19:13: Troponin I 0.72 H I & O for Last 24 hours: Intake & Output 06/11/22 06/12/22 06/13/22 06/14/22 11:59 11:59 11:59 11:59 Intake Total 1003 / 1003 Output Total 725 / 725 Balance 278 / 278 Weight 214 lb 4 oz Constitutional Constitutional: no acute distress Comments: Dyspnea with talking *Routine Respiratory Exam Respiratory: Present wheezes (Scattered throughout) and crackles (Scattered throughout) *Routine Cardiovascular Exam Cardiovascular: Present RRR *Routine Abdominal Exam Abdominal: Present soft, normoactive bowel sounds and obese; Absent tenderness *Routine Extremities Exam Extremities: Present edema (Trace) *Routine Neurological Exam Neurological: Present alert and oriented X3 Assessment and Plan *Assessment and plan (1) Malignant neoplasm of lung: Status: Acute Category: Medical Code(s): C34.90 - Malignant neoplasm of unspecified part of unspecified bronchus or lung (2) Tobacco abuse disorder: Status: Chronic Category: Medical Code(s): Z72.0 - Tobacco use (3) History of ASCVD: Status: Chronic Category: Medical Code(s): Z86.79 - Personal history of other diseases of the circulatory system (4) Acute exacerbation of chronic obstructive airways disease: Status: Acute Category: Medical Code(s): J44.1 - Chronic obstructive pulmonary disease with (acute) exacerbation (5) Hypothyroidism: Status: Chronic Category: Medical Code(s): E03.9 - Hypothyroidism, unspecified (6) Hypertension: Status: Chronic Qualifiers: Hypertension type: essential hypertension Qualified Code(s): I10 - Essential (primary) hypertension Category: Medical Code(s): I10 - Essential (primary) hypertension (7) HLD (hyperlipidemia): Status: Chronic Qualifiers: Hyperlipidemia type: mixed hyperlipidemia Qualified Code(s): E78.2 - Mixed hyperlipidemia Category: Medical Code(s): E78.5 - Hyperlipidemia, unspecified (8) Influenza A: Status: Acute Category: Medical Code(s): J10.1 - Influenza due to other identified influenza virus with other respiratory manifestations (9) Elevated troponin I level: Status: Acute Category: Medical Code(s): R77.8 - Other specified abnormalities of plasma proteins Plan Cardiology to see patient this morning. We will continue with current Tamiflu and duo nebs. Dr. Wang entry - Saw patient, agree with above note.
--- NOTE | 2022-06-14 12:21 | EXP.CARD.CON ---
History of Present Illness History of Present Illness Consult date: 06/14/22 Requesting physician: Sam Wang Chief complaint: elevated troponins, CAD Additional Medical History:: 1.? Hypertension A. Echo, 08/04/2020, biatrial enlargement, normal LV size, mild concentric LVH, EF 50% with no regional WMA. Grade 2 diastolic dysfunction. Moderate RVE with normal contractility. Thickened and calcified aortic valve without stenosis. Mild aortic insufficiency. Mild MR/TR. 2.? History of coronary artery disease with coronary artery stenting of in the remote past in [place], [place] A. Aleshia Myoview, 09/08/2020, no ischemia, EF 53%. 3.? History of melanoma of the back status post surgery 4.? History of tobacco use, continued A.? COPD with home oxygen use B. Stage III lung cancer, right upper lobe, diagnosed 09/2021, status post 38 rounds of radiation therapy now continuing on chemotherapy 5.? Hyperlipidemia 6.? History of colonic polyps 7.? History of DVT X 2 even while on anticoagulation therapy which was discontinued about 2016. 8.? Hypothyroidism, on replacement therapy 9. Hospitalization for hypoxemia with positive flu A 10. Brain MRI, 09/2021-mild atrophy and chronic ischemic/gliotic changes. No acute intracranial abnormality. 11. Abdominal aortic aneurysm, abdominal ultrasound 11/2020, mid abdominal aortic aneurysm measuring 3.6 x 3.4 cm A. 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 12. Bilateral carotid artery stenosis, 06/2021, 20 to 49% bilaterally History of present illness: Mr. Medeiros is a 66 year old male with an extensive medical history to include severe COPD, Melanoma, Gout, DVT, ,AAA. HTN, HLP, ASCVD,TOBACCO ADDICTION, and stage [address] followed [address] Dr[address] Puente who presented to [facility] ER for progressive SOB.? He states he received his Flu shot about 1 week ago and has not felt well since. He has had a fever and cough which is sometimes productive.? He has been able to eat and drink although he has experienced some diarrhea. With evaluation in the ER he was febrile and noted to be + for Flu A; WBCs are 3.9.? O2 sats are 90% on O2 at 4 LPM; Lactic was normal and TI was elevated at 0.72; CXR revealed NO acute CP process; He recieved 125mg of SM IV and Duoneb,? He is to be admitted. The above per Chela Braga APRN for Dr. Wang Cardiology consulted due to elevated troponins with prior history of coronary artery disease and stenting. Patient denies any recent chest pain, pressure or tightness. All of his symptoms seem to revolve around his shortness of breath and fatigue related to flu. He does continue to smoke. He is receiving chemotherapy for lung cancer and is being followed by Dr. Puente. [facility] Medical History (Updated 06/14/22 @ 09:41 by Chela Braga APRN) AAA (abdominal aortic aneurysm) Abnormal EKG Atherosclerotic heart disease CAD (coronary artery disease) Cancer Cataract CHF (congestive heart failure) COPD exacerbation Dizziness DVT (deep venous thrombosis) Dyspnea Gout History of chemotherapy History of radiation therapy HLD (hyperlipidemia) Hypertension Hypotension Hypothyroidism Lung disease Melanoma Myocardial infarction Pacemaker Sinus problem Thyroid disease Tobacco abuse Surgical History (Updated 06/13/22 @ 15:36 by Chela Braga APRN) H/O melanoma excision History of cardiac cath History of colonoscopy History of heart artery stent Family History (Updated 06/13/22 @ 15:37 by Chela Braga APRN) Coronary artery disease AAA (abdominal aortic aneurysm) Social History (Updated 06/13/22 @ 14:54 by Sarai Koenig RN) Smoking Status: Current every day smoker tobacco type: cigarettes packs per day: 1 alcohol intake: current substance use type: denies use 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ional status: retired and disabled Travel in the last 8 weeks: None household members: spouse housing: house caffeine: Yes
--- NOTE | 2022-06-14 12:22 | CA_ITS ---
APPROVED REPORT EXAM: Comprehensive 2D, Doppler, and color-flow Echocardiogram Tablet Machine Operator: Bebe Sommer CRT Ht: 5 ft 8 in Wt: 210lbs BSA: 2.09 BP: 123/70 mmHg Indications: FLU-A +, STENT, SMOKER, LUNG CA, CAD,PACER, Non STEMI, Diabetes, Dyspnea, CAD, Hyperlipidemia, Hypertension/HDD Limited images d/t lung interference, and SOB. Scanned per 2 techs. 2D Dimensions Left Atrium 3.49 cm LVOT 2.07 cm (M/F) 1.5-2.5 M-Mode Dimensions RVDd 2.72 cm (0.9-2.6) LVDd 4.16 cm (3.5-5.7) LVDs 3.01 cm (3.5-5.7) IVSd 0.85 cm (0.6-1.1) PWd 0.76 cm (0.6-1.1) EF (Teich) 54.00% FS 27.60% EDV (Teich) 76.80 mL TAPSE 2.15 (<1.7) ESV (Teich) 35.30 mL Tricuspid Valve TR P. Velocity 355.00 cm/s RAP Estimate 10.00 mmHg RVSP 60.50 mmHg Left Ventricle Technically very difficult study because of the patient factors and poor acoustic windows. Endocardial surfaces are poorly visualized, valvular structures not well visualized either. Left atrium is mildly enlarged, left ventricle is normal size, estimated ejection fraction 55% with no regional wall motion abnormality in the visualized segment. Diastolic parameters are inconclusive. Right Ventricle Right atrium and right ventricle are mildly enlarged with normal contractility, pacemaker leads are not well visualized. Aortic Valve Aortic valve is not well visualized. Mitral Valve Mitral valve is grossly normal, there is mild mitral regurgitation. Tricuspid Valve Tricuspid valve grossly normal, there is mild tricuspid regurgitation tricuspid regurgitation jet velocity is inadequate for calculation of the right ventricular systolic pressure. Pulmonic Valve Pulmonic valve is poorly visualized. Great Vessels Aortic root is not well visualized. Inferior vena cava is poorly visualized. Pericardium No significant pericardial effusion noted. Conclusion 1. Technically difficult and poor study as described above. Normal left ventricular size, estimated ejection fraction 55% with no regional wall motion abnormality in the obtained views. Endocardial surfaces and valvular structures are very poorly visualized. 2. Mildly enlarged right ventricle with normal contractility. 3. Mild mitral and tricuspid regurgitation. 4. No significant pericardial effusion. 5. Inferior vena cava is poorly visualized Electronically signed by : Jayce Butts MD 06/14/2022 20:54:52
--- NOTE | 2022-06-14 14:49 | PC.NURSE ---
PT IS RESTING IN BED. ALERT AND ORIENTED X4. O2 SATURATION 90-94% ON 4 L NC. LUNG SOUNDS HAVE SCATTERED WHEEZES/RHONCHI. ABDOMEN SOFT/NON TENDER WITH ACTIVE BOWEL SOUNDS. TEDS NOTED TO BLE. EATING AND DRINKING FAIR WILL CONTINUE TO MONITOR.
[2022-06-15] VITALS (17 sets, daily range): BP systolic 115–139; BP diastolic 62–78; PULSE 85–110; RESP 16–23; TEMP 36.6–36.9; O2SAT 94–99; BMI 32.7
--- NOTE | 2022-06-15 00:03 | PC.NURSE ---
pt o2 sats noted to drop t0 76% without recovering. pt placed on NRB temporarily, respiratory paged and pt placed on venti mask 15L fio2 50%. Pt o2 sats now 97%. Crackled now noted to lungs. iv fluids stopped and dr sammy singh. orders received for iv lasix and chung catheter at this time.
--- NOTE | 2022-06-15 04:46 | PC.NURSE ---
Pt seems confused but can answer questions appropriately. He remains on venti mask 50% fio2. O2 sats maintained >90%. Pts O2 sats decrease to 70's with little exertion, and takes a few minutes to recover with the venti mask. Rhonchi, wheezes, and crackles noted bilat. Less crackles noted to lungs since previous assessment. 900 ml UO since giving IV lasix. Sinus arrhythmia on telemetry with HR 81-108.
--- NOTE | 2022-06-15 05:52 | ECG_ITS ---
APPROVED REPORT Exam: Resting ECG HR:107 bpm ECG Measurements Heart Rate 107 AXES [place] 134 P 67 QRSd 112 QRS 251 QT 302 T 70 QTc 365 Conclusion SINUS TACHYCARDIA RIGHT AXIS DEVIATION [QRS AXIS > 100] S1-S2-S3 PATTERN, CONSISTENT WITH PULMONARY DISEASE, RVH, OR NORMAL VARIANT PATTERN CONSISTENT WITH PULMONARY DISEASE RIGHT BUNDLE BRANCH BLOCK [120+ ms QRS DURATION, UPRIGHT V1, 40+ ms S IN I/aVL/V4/V5/V6] ABNORMAL ECG UNCONFIRMED REPORT Electronically signed by : Clark Garland MD 06/15/2022 13:12:35
[2022-06-15 05:56] LABS: ABG Base Excess 12.9 mmol/L (-2.4-2.3); ABG HCO3 39.9 mmhg (22.0-26.0); ABG Oxygen Saturation 95 % (90-100); ABG PH 7.27 mmol/L (7.35-7.45); ABG PO2 78.8 mmhg (80-100); ABG TCO2 42.7 mmhg (23-27)
[2022-06-15 05:59] LABS: ABG PCO2 89.9 mmhg (35.0-45.0); Allen's Test Patient Unable; Source Left Radial
--- NOTE | 2022-06-15 06:03 | PC.NURSE ---
spoke with dr christianson regarding pts increasing confusion this morning. verbal orders received for abg ABG results called to Dr. Chrsitianson. verbal orders received to place pt on Bipap
--- NOTE | 2022-06-15 07:33 | EXP.CARD.PN ---
Subjective Subjective Date: 06/15/22 Time: 07:34 Principal diagnosis: Flu Interval history: 66-year-old white male in bed in no acute distress wearing BiPAP machine. Denies any chest pain, pressure or tightness. Results of echocardiogram reviewed with patient showing normal EF with no wall motion abnormalities. Exam Data for Last 24 hours Vital signs and Labs for Last 24 Hours: Temp Pulse Resp BP Pulse Ox FiO2 98.5 F 109 H 22 136/71 94 L 50 06/15/22 03:45 06/15/22 05:57 06/15/22 03:45 06/15/22 03:45 06/15/22 05:57 06/15/22 06:08 Laboratory Results - last 24 hr 06/15/22 05:53: Specimen Source Left radial, O2 % 50% venturi, ABG pH 7.27 L, ABG pCO2 89.9 H, ABG pO2 78.8 L, ABG HCO3 39.9 H, ABG Total CO2 42.7 H, ABG O2 Saturation 95, ABG Base Excess 12.9 H, Collin Test Patient unable I & O for Last 24 hours: Intake & Output 06/12/22 06/13/22 06/14/22 06/15/22 11:59 11:59 11:59 11:59 Intake Total 1003 / 1003 360 / 360 Output Total 1125 / 1125 1100 / 1100 Balance -122 / -122 -740 / -740 Weight 214 lb 4 oz 216 lb 0.566 oz Microbiology Reports for the Last 24 Hours: Microbiology 06/14/22 11:30 Sputum - Expectorated Sputum Gram Stain - Final Constitutional Constitutional: no acute distress *Routine Respiratory Exam Respiratory: Present rhonchi *Routine Cardiovascular Exam Cardiovascular: Present RRR Progress Note: A&P Assessment and plan (1) Elevated troponin I level: Status: Acute (2) Non-ST elevated myocardial infarction (non-STEMI): Status: Acute (3) Influenza A: Status: Acute (4) Malignant neoplasm of lung: Status: Acute (5) Tobacco abuse disorder: Status: Chronic (6) Acute exacerbation of chronic obstructive airways disease: Status: Acute (7) History of ASCVD: Status: Chronic (8) HLD (hyperlipidemia): Status: Chronic Assessment and Plan Assessment and Plan for All Diagnoses:: 1.? Elevated troponin/type II non-ST elevation [place] in the setting of influenza and lung cancer.? Echo shows normal EF with no wall motion abnormalities.? Once pulmonary status has improved then consider repeat stress testing. Patient already has appointment in mid June in our office. 2.? Influenza type a in a patient with COPD and lung cancer, on Tamiflu therapy 3.? Stage III lung cancer, status post radiation and now ongoing chemotherapy. 4.? CAD with prior coronary stenting approximately 20 years ago.? Continue aspirin therapy. 5.? Hypertension, controlled 6.? Hyperlipidemia, On statin therapy. 7.? Hypothyroidism, on replacement therapy. 8.? Elevated BNP without evidence of CHF on chest x-ray.? Likely related to RV strain from influenza Nothing further to add at this time. Please call if needed. Follow-up in our office as previously scheduled.
--- NOTE | 2022-06-15 08:15 | EXP.ACUTE.PN ---
Subjective *Date: 06/15/22 *Time: 09:11 Interval history: Patient is in bed wearing BiPAP this morning. He denies any chest pain or shortness of breath. He states he slept throughout the night. He has not felt like eating much this morning. Medical Exam Vital signs and Labs for Last 24 Hours: Vital Signs Temp Pulse Pulse Resp BP Pulse Ox FiO2 06/15/22 07:45 98.1 F 97 H 20 128/78 98 06/15/22 06:08 50 06/15/22 05:57 109 H 06/15/22 05:57 104 H 06/15/22 05:57 94 L 50 06/15/22 04:00 110 H 06/15/22 03:45 98.5 F 107 H 22 136/71 95 06/14/22 20:00 100 H 06/15/22 00:00 100 H 06/14/22 23:42 98.4 F 108 H 22 143/62 H 91 L 06/14/22 23:21 82 06/14/22 23:20 81 06/14/22 20:00 98.3 F 104 H 23 122/69 94 L 06/14/22 19:00 83 06/14/22 18:56 83 06/14/22 16:00 90 06/14/22 15:08 98.3 F 93 H 18 140/79 95 06/14/22 12:00 94 H 06/14/22 11:30 88 06/14/22 11:30 84 06/14/22 11:30 95 06/14/22 10:52 97.8 F 85 18 118/74 95 06/14/22 09:48 87 L Intake and Output 06/14/22 06/15/22 06/15/22 19:59 03:59 11:59 Intake Total 360 / 360 Output Total 0 / 1100 1100 / 1100 0 / 1100 Balance 360 / -740 -1100 / -740 0 / -740 Intake: Intake, Oral Amount 360 / 360 Output: Output, Urine Amount 0 / 1100 1100 / 1100 0 / 1100 Other: Number of Unmeasured Voids 1 0 0 Weight 216 lb 0.566 oz Patient Weight 06/15/22 11:59 Weight 216 lb 0.566 oz Laboratory Results - last 24 hr 06/15/22 05:53: Specimen Source Left radial, O2 % 50% venturi, ABG pH 7.27 L, ABG pCO2 89.9 H, ABG pO2 78.8 L, ABG HCO3 39.9 H, ABG Total CO2 42.7 H, ABG O2 Saturation 95, ABG Base Excess 12.9 H, Collin Test Patient unable I & O for Labs for Last 24 Hours: Intake & Output 06/12/22 06/13/22 06/14/22 06/15/22 11:59 11:59 11:59 11:59 Intake Total 1003 / 1003 360 / 360 Output Total 1125 / 1125 1100 / 1100 Balance -122 / -122 -740 / -740 Weight 214 lb 4 oz 216 lb 0.566 oz Microbiology Reports for the Last 24 Hours: Microbiology 06/14/22 11:30 Sputum - Expectorated Sputum Gram Stain - Final Constitutional: Present no acute distress Respiratory: Present rhonchi and wheezes Cardiac: Present Reg Rate and Rhythm GI: Present soft; Absent distention or tenderness Extremities: Absent edema Assessment and Plan *Assessment and plan (1) Influenza A: Status: Acute Category: Medical Code(s): J10.1 - Influenza due to other identified influenza virus with other respiratory manifestations (2) Elevated troponin I level: Status: Acute Category: Medical Code(s): R77.8 - Other specified abnormalities of plasma proteins (3) Malignant neoplasm of lung: Status: Acute Category: Medical Code(s): C34.90 - Malignant neoplasm of unspecified part of unspecified bronchus or lung (4) Tobacco abuse disorder: Status: Chronic Category: Medical Code(s): Z72.0 - Tobacco use (5) History of ASCVD: Status: Chronic Category: Medical Code(s): Z86.79 - Personal history of other diseases of the circulatory system (6) Acute exacerbation of chronic obstructive airways disease: Status: Acute Category: Medical Code(s): J44.1 - Chronic obstructive pulmonary disease with (acute) exacerbation (7) Hypothyroidism: Status: Chronic Category: Medical Code(s): E03.9 - Hypothyroidism, unspecified (8) Hypertension: Status: Chronic Qualifiers: Hypertension type: essential hypertension Qualified Code(s): I10 - Essential (primary) hypertension Category: Medical Code(s): I10 - Essential (primary) hypertension (9) HLD (hyperlipidemia): Status: Chronic Qualifiers: Hyperlipidemia type: mixed hyperlipidemia Qualified Code(s):
[2022-06-15 10:14] LABS: Basophils % 0.7 % (0.1-2.0); Eosinophils % 0.6 % (0.1-12.0); Hemoglobin 14.9 g/dL (14.1-18.0); Lymphocytes # 0.4 K/mm3 (0.7-4.5); Lymphocytes % 7.6 % (10-50); Mean Corpuscular HGB Conc 30.3 g/dL (31.8-35.4); Mean Corpuscular Hemoglobin 32.2 pg (27.0-31.2); Mean Corpuscular Volume 106.2 fl (80-94); Mean Platelet Volume 9.2 fl (7.4-10.4); Monocytes # 0.5 K/mm3 (0.1-1.0); Monocytes % 9.7 % (1.7-9.3); Neutrophils # 4.3 K/mm3 (1.8-7.8); Neutrophils % 81.4 % (37.0-80.0); Platelet Count 74 K/mm3 (142-424); Red Blood Count 4.61 M/mm3 (4.60-6.20); Red Cell Distribution Width 13.7 % (11.5-17.5); White Blood Count 5.3 K/mm3 (4.8-10.8)
[2022-06-15 10:27] LABS: Blood Urea Nitrogen 23 mg/dl (9-20); Calcium 8.6 mg/dl (8.4-10.2); Chloride 95 mmol/L (98-107); Creatinine Clearance Estimated 98 mL/min (50-200); Estimated Glomerular Filt Rate 112 ml/min (>60); GFR (African American) 136 ML/MIN (>60); Glucose 108 mg/dl (74-100); Potassium 4.7 mmoL/L (3.5-5.1); Sodium 139 mmol/L (136-145)
[2022-06-15 10:33] LABS: Anion Gap 9.7 mEq/L (5-15); Carbon Dioxide 39 mmol/L (22.0-30.0)
--- NOTE | 2022-06-15 18:44 | PC.NURSE ---
Pt has been alert and oriented x3 this shift. He was on bipap most of the day and switched to vapotherm 15L/60% this afternoon. Nose has some redness due to bipap mask. O2 sats have been>93%. He's been NSR/SA on tele. His chung is to bedside, approx 450 mls out this shift. Family is at bedside. Bed is locked and in the lowest position, call light is within reach.
--- NOTE | 2022-06-15 19:14 | PC.NURSE ---
FiO2 increased on vapotherm to 60% per RT.
--- NOTE | 2022-06-15 23:23 | PC.NURSE ---
Vapotherm weaned to 15L 60% at this time per RT.
[2022-06-16] VITALS (21 sets, daily range): BP systolic 89–134; BP diastolic 53–92; PULSE 69–150; RESP 16–34; TEMP 36.4–37; O2SAT 92–100
--- NOTE | 2022-06-16 02:40 | PC.NURSE ---
at around 0230 pt removed cannula and o2 sats decreased to 56%. Pts o2 sats were not improving, vapotherm was increased to 30L 80% per RT. o2 sats now maintained >90%.
--- NOTE | 2022-06-16 04:58 | ECG_ITS ---
APPROVED REPORT Exam: Resting ECG HR:143 bpm ECG Measurements Heart Rate 143 AXES QRSd 108 QRS 265 QT 272 T 64 QTc 355 Conclusion ATRIAL FIBRILLATION WITH RAPID VENTRICULAR RESPONSE RIGHT AXIS DEVIATION [QRS AXIS > 100] PATTERN CONSISTENT WITH PULMONARY DISEASE INCOMPLETE RIGHT BUNDLE BRANCH BLOCK [90+ ms QRS DURATION, TERMINAL R IN V1/V2, 40+ ms S IN I/aVL/V4/V5/V6] NONSPECIFIC ST ELEVATION [0.05+ mV ST ELEVATION] ABNORMAL ECG UNCONFIRMED REPORT Electronically signed by : Clark Garland MD 06/16/2022 21:32:11
--- NOTE | 2022-06-16 05:51 | XR_ITS ---
PROCEDURE INFORMATION: Exam: XR Chest Exam date and time: 06/16/2022 5:59 AM Age: 66 years old Clinical indication: Other: Tachycardia; Additional info: Elevated heart rate 160 TECHNIQUE: Imaging protocol: Radiologic exam of the chest. Views: 1 view. COMPARISON: CR XR CHEST PORTABLE 06/13/2022 1:13 PM FINDINGS: Lungs: Unremarkable. No consolidation. Pleural spaces: Unremarkable. No pleural effusion. No pneumothorax. Heart/Mediastinum: Unremarkable. No cardiomegaly. Bones/joints: Unremarkable. IMPRESSION: No acute findings.
--- NOTE | 2022-06-16 06:14 | EXP.RR ---
Acute Rapid Response Note Subjective Date Responded: 06/16/22 Time Responded: 05:45 Provider Note: Rapid Response called overhead to room 200. Went into room, patient sitting upright in chair, Atrial Fibrillation with Rate in 150's on monitor. Blood pressures reading in 90's systolic. Patient was receiving a bolus of fluids. RN reported had given Cardizem po. Notes briefly reviewed, saw Cardiology was following. Informed RN to call Cardiology. She reported orders received for Amiodarone, Heparin and Neosyntherine. Placed orders. at bedside. Discussed orders and plan for Cardiology to see today to and patient. Patient moved to room 218. Objective Findings: Vital Signs - Last 4 Hours Temperature 98.3 F 06/16/22 04:00 Temperature Source Oral 06/16/22 04:00 Pulse Rate 92 H 06/16/22 04:00 Respiratory Rate 17 06/16/22 04:00 Blood Pressure 128/62 06/16/22 04:00 Blood Pressure Mean 84 06/16/22 04:00 Blood Pressure Source Automatic Cuff 06/16/22 04:00 Blood Pressure Position Sitting 06/16/22 04:00 02 Sat by Pulse Oximetry 98 06/16/22 05:34 Oxygen Delivery Method 06/16/22 05:34 Oxygen Flow Rate (LPM) 30 06/16/22 05:34 My Orders Category Date Time Status Chest XR -- portable [XR chest portable] Stat Exams 06/16/22 05:51 Taken PTT Heparin (inpatient only) Stat Lab 06/16/22 05:59 Ordered 0.9 % Sodium Chloride [Sod Chlor 0.9% 250mL Bag] 250 ml Med 06/16/22 06:15 Ordered Phenylephrine HCl [Rayshawn-Synephrine 10mg/mL vial] 10 mg IV 40 mcg/min Amiodarone HCl [Cordarone 150mg/3mL vial] Med 06/16/22 05:59 Once 150 mg IVP ONCE ONE Dextrose 5 % in Water [D5W 500mL IV] 500 ml Med 06/16/22 06:00 Ordered Amiodarone HCl [Cordarone 900mg/18mL vial] 900 mg IV 33.3 mls/hr Heparin Sodium,Porcine [Heparin Sodium 5,000 units/mL Med 06/16/22 06:15 Once vial] 7,000 unit IV ONCE ONE Heparin Sodium,Porcine/D5w [Heparin 25,000 units in D5W Med 06/16/22 06:30 Active 500mL premix] 500 ml IV 1,500 units/hr Miscellaneous [Heparin Drip Consult Request] Med 06/16/22 06:00 Ordered 1 each NOTAPPLIC CONSULT PHARMACY ECG Data Tracing #4: ECG initial impression date: 06/16/22 ECG initial impression time: 17:45 Arrhythmias present: afib Rapid Response Exam General General appearance: alert Head Head exam: normocephalic Eye Eye exam: Present normal appearance ENT ENT exam: Present normal exam Neck Neck exam: Present normal inspection Chest Chest inspection: Present other (use of abdominal wall in breathing ) Respiratory Respiratory exam: Present respiratory distress Cardiovascular Cardiovascular exam: Present irregular rhythm Abdominal Exam Abdominal exam: Present soft and distention exam: Present deferred RR Procedures/Assess/Plan (1) Influenza A: Status: Acute (2) Elevated troponin I level: Status: Acute (3) Malignant neoplasm of lung: Status: Acute (4) Tobacco abuse disorder: Status: Chronic (5) History of ASCVD: Status: Chronic (6) Acute exacerbation of chronic obstructive airways disease: Status: Acute (7) Hypothyroidism: Status: Chronic (8) Hypertension: Status: Chronic Qualifiers: Hypertension type: essential hypertension Qualified Code(s): I10 - Essential (primary) hypertension (9) HLD (hyperlipidemia): Status: Chronic Qualifiers: Hyperlipidemia type: mixed hyperlipidemia Qualified Code(s): E78.2 - Mixed hyperlipidemia Assessment and plan all Dx Assessment and Plan for all problems:: Atrial Fibrillation with Rapid Ventricular Response - Amiodarone loading and maintenance, per cardiology - Neosyntherine per cardiology for pressure support - Heparin pharmacy to follow
[2022-06-16 06:40] LABS: PTT Heparin (inpatient only) 30.1 Seconds (23.6-34.0)
--- NOTE | 2022-06-16 07:06 | PC.NURSE ---
0450- I was notified by forward air controller/air officer of pts heart rate increasing to 137 at this time. I immediately entered pts room and found him to be sleeping. pt aroused, had no complaints. denies chest pain or worsening SOA. HR at this time was increasing into 150-160's. RT notified to do an EKG. BP stable at this time. 104/69. 0458- EKG shows A-fib RVR, read by ED MD Dr. Blancas. Dr Garland Paged. 0510- orders received from Dr. Garland for Diltiazem 30 mg PO ONCE NOW. 0517- Diltiazem 30 mg PO given at this time. 0534. BP noted to decrease to 80/40, HR not improved. Dr Garland notified. Verbal orders received to give NS 1L Bolus, transfer to step-down, and call a rapid response. 0538- Rapid response called at this time. 1L NS bolus initiated. Hospitalist Alpesh BUCK to bedside, suggests consulting Dr Meléndez. 0548- Spoke with Dr. Meléndez at this time. New orders received: Heparin 7000 unit Bolus, Heparin Drip 1500 units/hr, Amiodarone 150 mg Bolus over 10 mins, start drip per protocol, Rayshawn drip titrate off BP. Keep pt NPO. [facility] called to verify heparin dosage. Dose verified per MD orders. Pt was moved to a step-down room. initial PTT was drawn before heparin was given. Rayshawn was held. after transfer pt was slightly hypertensive. Amio drip started at 0635. Pt kept NPO Remains on Vapotherm.
--- NOTE | 2022-06-16 08:46 | EXP.CARD.PN ---
Subjective Subjective Date: 06/16/22 Time: 08:46 Principal diagnosis: Flu, A. Fib with RVR Interval history: 66-year-old white male in bedside chair in no acute distress but does have conversational dyspnea. Patient removed his oxygen last evening with subsequent significant drop in his oxygen saturation into the 50s with change in rhythm to atrial fibrillation with a rapid ventricular response thereafter. Dr. Meléndez was contacted with instructions to start amiodarone, heparin and Rayshawn-Synephrine if needed. Patient's heart rate continues to be in the 120-140 bpm range this morning with blood pressure systolic in the 90 mmHg range. Patient was on prophylactic Lovenox during his stay. Patient is currently on Vapotherm at 40 L/min with oxygen saturation in the 99% range. Exam Data for Last 24 hours Vital signs and Labs for Last 24 Hours: Temp Pulse Resp BP Pulse Ox FiO2 98.3 F 127 H 20 99/59 L 100 70 06/16/22 04:00 06/16/22 08:00 06/16/22 08:00 06/16/22 08:00 06/16/22 08:00 06/16/22 08:00 Laboratory Results - last 24 hr 06/15/22 09:54: WBC 5.3 D, RBC 4.61, Hgb 14.9, Hct 49.0, MCV 106.2 H, MCH 32.2 H, MCHC 30.3 L, RDW 13.7, Plt Count 74 L, MPV 9.2, Neut % (Auto) 81.4 H, Lymph % (Auto) 7.6 L, Camas % (Auto) 9.7 H, Eos % (Auto) 0.6, Baso % (Auto) 0.7, Neut # (Auto) 4.3, Lymph # (Auto) 0.4 L, Camas # (Auto) 0.5, Eos # (Auto) 0.0, Baso # (Auto) 0.0 06/15/22 09:54: Sodium 139, Potassium 4.7, Chloride 95 L, Carbon Dioxide 39 H, Anion Gap 9.7, BUN 23 H, Creatinine 0.70 D, Estimated Creat Clear 98, Estimated GFR 112, Est GFR ( Amer) 136 D, Glucose 108 H, Calcium 8.6 06/16/22 06:14: APTT 30.1 I & O for Last 24 hours: Intake & Output 06/13/22 06/14/22 06/15/22 06/16/22 11:59 11:59 11:59 11:59 Intake Total 1003 / 1003 360 / 360 370 / 370 Output Total 1125 / 1125 1100 / 1100 1000 / 1000 Balance -122 / -122 -740 / -740 -630 / -630 Weight 214 lb 4 oz 216 lb 0.566 oz 215 lb 13.321 oz Microbiology Reports for the Last 24 Hours: Microbiology 06/13/22 12:50 Blood - Angio Blood Culture - Preliminary NO GROWTH AFTER 48 HOURS 06/13/22 12:50 Blood - Angio Blood Culture - Preliminary NO GROWTH AFTER 48 HOURS 06/14/22 11:30 Sputum - Expectorated Sputum Gram Stain - Final Constitutional Constitutional: mild distress *Routine Respiratory Exam Respiratory: Present rhonchi *Routine Cardiovascular Exam Cardiovascular: Present tachycardia *Routine Extremities Exam Extremities: Absent edema Progress Note: A&P Assessment and plan (1) Influenza A: Status: Acute (2) Elevated troponin I level: Status: Acute (3) Malignant neoplasm of lung: Status: Acute (4) Tobacco abuse disorder: Status: Chronic (5) History of ASCVD: Status: Chronic (6) Acute exacerbation of chronic obstructive airways disease: Status: Acute (7) Hypothyroidism: Status: Chronic (8) Hypertension: Status: Chronic (9) HLD (hyperlipidemia): Status: Chronic (10) Atrial fibrillation with RVR: Status: Acute Assessment and Plan Assessment and Plan for All Diagnoses:: 1.? Elevated troponin/type II non-ST elevation [place] in the setting of influenza and lung cancer.? Echo shows normal EF with no wall motion abnormalities. 2.? Influenza type a in a patient with COPD and lung cancer, on Tamiflu therapy 3.? Stage III lung cancer, status post radiation and now ongoing chemotherapy. 4.? CAD with prior coronary stenting approximately 20 years ago.? Continue aspirin therapy. 5.? Hypertension, controlled 6.? Hyperlipidemia, On statin therapy. 7.? Hypothyroidism, on replacement therapy. 8.? Elevated BNP without evidence of CHF on chest x-ray.? Likely related to RV strain from influenza 9. Atrial fibrillation with a rapid ventricular response last night, patient subsequently was going to have cardioversion this morning but spontaneously co
--- NOTE | 2022-06-16 08:51 | EXP.ACUTE.PN ---
Subjective *Date: 06/16/22 *Time: 09:20 Interval history: Patient had a rough night. He went into A. fib with RVR and had to be placed on an amiodarone drip. His heart rate has decreased somewhat. His blood pressure has been low and he has Rayshawn-Synephrine drip on standby. His Vapotherm had to be increased and he is at 70% on 40 L/min. He denies any pain today. He states he does not feel more short of breath. He did try to eat some breakfast. Medical Exam Vital signs and Labs for Last 24 Hours: Vital Signs Temp Pulse Pulse Resp BP Pulse Ox FiO2 06/16/22 08:00 127 H 20 99/59 L 100 70 06/16/22 08:00 100 70 06/16/22 07:50 94 L 70 06/16/22 05:34 98 60 06/16/22 04:00 98.3 F 92 H 17 128/62 99 06/16/22 00:00 100 H 06/16/22 00:00 98.1 F 106 H 20 134/70 95 60 06/16/22 00:00 60 06/15/22 20:00 110 H 06/15/22 22:55 100 H 06/15/22 22:55 103 H 06/15/22 20:00 60 06/15/22 20:00 98.2 F 110 H 23 139/71 60 06/15/22 17:59 94 L 60 06/15/22 17:57 93 H 06/15/22 17:57 90 06/15/22 16:00 85 06/15/22 12:00 100 H 06/15/22 15:48 97.8 F 93 H 20 115/62 99 06/15/22 11:33 98.4 F 96 H 20 135/73 98 06/15/22 11:13 99 H 06/15/22 11:13 93 H 06/15/22 09:51 50 Intake and Output 06/15/22 06/16/22 06/16/22 19:59 03:59 11:59 Intake Total 370 / 370 Output Total 450 / 1000 550 / 1000 Balance -80 / -630 -550 / -630 Intake: Intake, Oral Amount 360 / 360 Intake, Other Amount 10 / 10 Output: Output, Urine Amount 450 / 450 Output, Urine Amount (Catheter) 550 / 550 Armstrong 550 / 550 Other: Intake, Other Source Saline Solution Number of Unmeasured Voids 0 0 Weight 215 lb 13.321 oz Patient Weight 06/16/22 11:59 Weight 215 lb 13.321 oz Laboratory Results - last 24 hr 06/15/22 09:54: WBC 5.3 D, RBC 4.61, Hgb 14.9, Hct 49.0, MCV 106.2 H, MCH 32.2 H, MCHC 30.3 L, RDW 13.7, Plt Count 74 L, MPV 9.2, Neut % (Auto) 81.4 H, Lymph % (Auto) 7.6 L, O'Brien % (Auto) 9.7 H, Eos % (Auto) 0.6, Baso % (Auto) 0.7, Neut # (Auto) 4.3, Lymph # (Auto) 0.4 L, O'Brien # (Auto) 0.5, Eos # (Auto) 0.0, Baso # (Auto) 0.0 06/15/22 09:54: Sodium 139, Potassium 4.7, Chloride 95 L, Carbon Dioxide 39 H, Anion Gap 9.7, BUN 23 H, Creatinine 0.70 D, Estimated Creat Clear 98, Estimated GFR 112, Est GFR ( Amer) 136 D, Glucose 108 H, Calcium 8.6 06/16/22 06:14: APTT 30.1 I & O for Labs for Last 24 Hours: Intake & Output 06/13/22 06/14/22 06/15/22 06/16/22 11:59 11:59 11:59 11:59 Intake Total 1003 / 1003 360 / 360 370 / 370 Output Total 1125 / 1125 1100 / 1100 1000 / 1000 Balance -122 / -122 -740 / -740 -630 / -630 Weight 214 lb 4 oz 216 lb 0.566 oz 215 lb 13.321 oz Microbiology Reports for the Last 24 Hours: Microbiology 06/13/22 12:50 Blood - Angio Blood Culture - Preliminary NO GROWTH AFTER 48 HOURS 06/13/22 12:50 Blood - Angio Blood Culture - Preliminary NO GROWTH AFTER 48 HOURS Constitutional: Present no acute distress Respiratory: Present decreased breath sounds, rhonchi and wheezes Comment:: Irregularly irregular GI: Present soft; Absent distention or tenderness Extremities: Present edema; Absent tenderness Neuro: Present alert, awake and oriented x 3 Assessment and Plan *Assessment and plan (1) Influenza A: Status: Acute Category: Medical Code(s): J10.1 - Influenza due to other identified influenza virus with other respiratory manifestations (2) Elevated troponin I level: Status: Acute Category: Medical Code(s): R77.8 - Other specified abnormalities of plasma proteins (3) Malignant neoplasm of lung: Status: Acute Category: Medical Code(s): C34.90 - Malignant neoplasm of unspecified part of unspecified bronchus o
--- NOTE | 2022-06-16 08:55 | P.PN_ITS ---
[facility] Disclaimer: The information contained in this section may have been updated after the patient was seen, as this information can be updated by other users. Medical History AAA (abdominal aortic aneurysm) Abnormal EKG Atherosclerotic heart disease CAD (coronary artery disease) Cancer Cataract CHF (congestive heart failure) COPD exacerbation Dizziness DVT (deep venous thrombosis) Dyspnea Gout History of chemotherapy History of radiation therapy HLD (hyperlipidemia) Hypertension Hypotension Hypothyroidism Lung disease Melanoma Myocardial infarction Pacemaker Sinus problem Thyroid disease Tobacco abuse Surgical History H/O melanoma excision History of cardiac cath History of colonoscopy History of heart artery stent Family History Other AAA (abdominal aortic aneurysm) Coronary artery disease Gout Heart attack Hypertension Social History Smoking Status: Current every day smoker tobacco type: cigarettes packs per day: 1 alcohol intake: current substance use type: denies use 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ional status: retired and disabled Travel in the last 8 weeks: None household members: spouse housing: house caffeine: Yes [facility] Anesthesia Checklist Patient Identification Patient Identification: Arm Band and Verbal (Name & ) Structural Data Admitted From: Inpatient Planned Operative Procedure/s: Cardioversion Consent for Planned Operative Procedure(s) Verified: Yes Additional verifications Anesthesia Reactions: No Hx Blood Transfusions: No Blood Transfusion Reaction: No Airway Assessment C-Spine Mobility Assessed: Yes TMJ Mobility Assessed: Yes Neurological Assessment Level of Consciousness: Awake Hx Seizures: No Numbness or tingling in extremities: No Anesthesia Plan Anesthesia Risk discussed: Yes Anesthesia Plan: Verified ASA Class: IV Anesthesia Type: MAC
--- NOTE | 2022-06-16 09:15 | ECG_ITS ---
APPROVED REPORT Exam: Resting ECG HR:83 bpm ECG Measurements Heart Rate 83 AXES FL 135 P 78 QRSd 113 QRS 250 QT 350 T 69 QTc 389 Conclusion SINUS RHYTHM WITH OCCASIONAL VENTRICULAR PREMATURE COMPLEXES WITH OCCASIONAL SUPRAVENTRICULAR PREMATURE COMPLEXES RIGHT AXIS DEVIATION [QRS AXIS > 100] S1-S2-S3 PATTERN, CONSISTENT WITH PULMONARY DISEASE, RVH, OR NORMAL VARIANT PATTERN CONSISTENT WITH PULMONARY DISEASE RIGHT BUNDLE BRANCH BLOCK [120+ ms QRS DURATION, UPRIGHT V1, 40+ ms S IN I/aVL/V4/V5/V6] ABNORMAL ECG UNCONFIRMED REPORT Electronically signed by : Clark Garland MD 06/16/2022 21:31:29
[2022-06-16 12:51] LABS: Basophils # 0.1 K/mm3 (0-0.2); Basophils % 1.6 % (0.1-2.0); Eosinophils % 0.6 % (0.1-12.0); Hematocrit 46.1 % (42.0-52.0); Hemoglobin 13.7 g/dL (14.1-18.0); Lymphocytes # 0.6 K/mm3 (0.7-4.5); Lymphocytes % 11.9 % (10-50); Mean Corpuscular HGB Conc 29.7 g/dL (31.8-35.4); Mean Corpuscular Hemoglobin 32.6 pg (27.0-31.2); Mean Platelet Volume 9.8 fl (7.4-10.4); Monocytes # 0.4 K/mm3 (0.1-1.0); Monocytes % 8.6 % (1.7-9.3); Neutrophils # 3.7 K/mm3 (1.8-7.8); Neutrophils % 77.3 % (37.0-80.0); Platelet Count 72 K/mm3 (142-424); Red Blood Count 4.19 M/mm3 (4.60-6.20); White Blood Count 4.8 K/mm3 (4.8-10.8)
--- NOTE | 2022-06-16 13:08 | PC.NURSE ---
Heparin drip stopped at this time per MD order
--- NOTE | 2022-06-16 13:17 | PC.NURSE ---
RESP CARE NOTE: Pt vapotherm decreased to 25L/40% FIO2. SpO2 remained at 96%. Will continue to monitor and wean oxygen as tolerable.
--- NOTE | 2022-06-16 13:51 | HMH.PHAHEP ---
[facility] Pharmacy Heparin Dosing Demographic Data Admission date:: 06/16/22 Date: 06/16/22 Time: 12:20 Allergies Allergy/AdvReac Type Severity Reaction Status Date / Time No Known Drug Allergies Allergy Unknown Unknown Verified 06/16/22 13:53 [NKDA] allergy reaction Height: 1.73 m Weight: 98 kg Indication Medication therapy:: Heparin Current Active Problems (Updated 06/16/22 @ 08:49 by JOSÉ Mai) Elevated troponin I level (Acute) Non-ST elevated myocardial infarction (non-STEMI) (Acute) Influenza A (Acute) Influenza A (Acute) Malignant neoplasm of lung (Acute) Tobacco abuse disorder (Chronic) History of ASCVD (Chronic) Acute exacerbation of chronic obstructive airways disease (Acute) Hypothyroidism (Chronic) Hypertension (Chronic) HLD (hyperlipidemia) (Chronic) CVA?: No Bleeding problem?: No Kidney disease?: No CA?: No Desired PTT range:: 50-75 seconds Labs Anticoagulation Lab Results:: 06/16/22 12:29 Hgb 13.7 L Hct 46.1 Plt Count 72 L Monitoring Dose Monitor 1: Date: 06/16/22 Time: 06:14 PTT Result:: PTT 30.1 Infusion Rate:: HEPARIN DRIP STARTED AT 30 ML/HR (1500 UNITS/HR) AND HEPARIN BOLUS OF 7000 UNITS/HR. Dose Monitor 2: Date: 06/16/22 Time: 12:29 PTT Result:: PTT 82 Infusion Rate:: HEPARIN DRIP REDUCED TO 28 ML/HR (1400 UNITS/HR). Comment:: STOPPED HEPARIN DRIP Core Measures Is INR > or = 2 at discharge?: No Most Recent Labs:: Laboratory Results - last 24 hr 06/16/22 06:14: APTT 30.1 06/16/22 12:29: WBC 4.8, RBC 4.19 L, Hgb 13.7 L, Hct 46.1, MCV 110.0 H, MCH 32.6 H, MCHC 29.7 L, RDW 14.0, Plt Count 72 L, MPV 9.8, Neut % (Auto) 77.3, Lymph % (Auto) 11.9, [place] % (Auto) 8.6, Eos % (Auto) 0.6, Baso % (Auto) 1.6, Neut # (Auto) 3.7, Lymph # (Auto) 0.6 L, [place] # (Auto) 0.4, Eos # (Auto) 0.0, Baso # (Auto) 0.1 06/16/22 12:29: APTT 82.0 H* If INR was < than 2.0 why was therapy stopped?: MD STOPPED Were Heparin and Warfarin started on the same day?: No If not, why?: STOPPED HEPARIN DRIP.
[2022-06-16 14:31] LABS: Microscopic, Urine URINE MICROSCOPIC (MICROSCOPIC)
[2022-06-16 15:11] LABS: Appearance,Urine TURBID (Clear); Bilirubin,Urine Negative (Negative); Blood, Urine 3+ (Negative); Color,Urine RED (Yellow); Glucose,Urine (UA) TRACE (Negative); Ketones,Urine 1+ (Negative); Leukocyte Esterase,Urine 2+ (Negative); Nitrate,Urine POSITIVE (Negative); PH,Urine 6.5 (5.0-8.5); Protein,Urine 3+ (Negative); Specific Gravity, Urine 1.025 (1.005-1.030)
--- NOTE | 2022-06-16 15:57 | PC.NURSE ---
RESP CARE NOTE: Pt c/o SOA, SPO2 at 90% on 25L/40%. Oxygen increased to 35L/50%, SPO2 increased to 93%. Will continue to monitor patient.
[2022-06-16 16:40] LABS: RBC,Urine TNTC #/hpf (0-3)
[2022-06-16 16:43] LABS: Bacteria,Urine Trace /lpf
[2022-06-17] VITALS (23 sets, daily range): BP systolic 102–139; BP diastolic 60–73; PULSE 60–98; RESP 17–29; TEMP 36.2–37.3; O2SAT 90–98; BMI 32.7
--- NOTE | 2022-06-17 05:03 | PC.NURSE ---
Pt remains on vapotherm 35L 50%. Has c/o soa at times. O2 sats low 90s. Other VSS. Pt remains on amiodarone gtt @ 16.7 ml/hr at this time. He is afib on telemetry. Pt uses urinal. Urine remains blood tinged. No BM this shift. call light at bedside.
--- NOTE | 2022-06-17 06:35 | PC.NURSE ---
Amiodarone drip stopped at this time.
[2022-06-17 06:39] LABS: Eosinophils % 0.3 % (0.1-12.0); Hematocrit 42.3 % (42.0-52.0); Hemoglobin 13.3 g/dL (14.1-18.0); Lymphocytes # 0.5 K/mm3 (0.7-4.5); Lymphocytes % 11.2 % (10-50); Mean Corpuscular HGB Conc 31.5 g/dL (31.8-35.4); Mean Corpuscular Hemoglobin 32.3 pg (27.0-31.2); Mean Corpuscular Volume 102.4 fl (80-94); Monocytes # 0.5 K/mm3 (0.1-1.0); Neutrophils # 3.5 K/mm3 (1.8-7.8); Neutrophils % 77.6 % (37.0-80.0); Platelet Count 77 K/mm3 (142-424); Red Blood Count 4.13 M/mm3 (4.60-6.20); Red Cell Distribution Width 13.7 % (11.5-17.5); White Blood Count 4.5 K/mm3 (4.8-10.8)
[2022-06-17 06:54] LABS: Chloride 91 mmol/L (98-107); Sodium 134 mmol/L (136-145)
[2022-06-17 06:55] LABS: Potassium 4.4 mmoL/L (3.5-5.1)
[2022-06-17 06:57] LABS: Alanine Aminotransferase 23 U/L (12-78); Albumin Level 3.7 g/dl (3.5-5.0); Albumin/Globulin Ratio 1.4 (1.1-1.8); Alkaline Phosphatase 48 U/L (38-126); Aspartate Amino Transferase 32 U/L (17-59); Bilirubin,Total 0.7 mg/dl (0.2-1.3); Blood Urea Nitrogen 17 mg/dl (9-20); Calcium 8.6 mg/dl (8.4-10.2); Creatinine Clearance Estimated 98 mL/min (50-200); Estimated Glomerular Filt Rate 134 ml/min (>60); GFR (African American) 162 ML/MIN (>60); Globulin 2.7 g/dL (1.3-3.2); Glucose 128 mg/dl (74-100); Total Protein,Serum 6.4 g/dl (6.3-8.2)
[2022-06-17 07:05] LABS: Anion Gap 7.4 mEq/L (5-15); Carbon Dioxide 40 mmol/L (22.0-30.0)
--- NOTE | 2022-06-17 08:17 | EXP.ACUTE.PN ---
Subjective *Date: 06/17/22 *Time: 08:44 Interval history: Patient states he does not feel well this morning. He remains short of breath. He sat up most of the night but was unable to sleep. He has remained in normal sinus rhythm. He is complaining of lower abdominal pain. In Medical Exam Vital signs and Labs for Last 24 Hours: Vital Signs Temp Pulse Pulse Resp BP Pulse Ox FiO2 06/17/22 04:00 60 06/17/22 06:43 71 06/17/22 06:43 73 06/17/22 06:43 93 L 50 06/17/22 06:00 68 17 119/68 94 L 50 06/17/22 04:00 69 94 L 50 06/17/22 04:00 97.2 F L 72 24 102/63 L 94 L 50 06/16/22 20:00 70 06/17/22 00:00 70 06/17/22 02:00 83 22 126/70 90 L 50 06/17/22 00:00 97 50 06/17/22 00:00 98.1 F 77 22 109/66 L 97 50 06/16/22 23:37 77 06/16/22 23:37 78 06/16/22 22:00 69 34 H 89/53 L 97 50 06/16/22 20:00 97.7 F 83 18 94/65 L 97 50 06/16/22 20:00 92 L 50 06/16/22 12:00 79 06/16/22 17:12 83 06/16/22 17:12 80 06/16/22 17:12 96 50 06/16/22 16:00 97 06/16/22 15:59 93 L 50 06/16/22 15:25 98.1 F 06/16/22 14:00 80 16 112/62 94 L 40 06/16/22 13:18 96 40 06/16/22 13:16 99 H 06/16/22 13:16 101 H 06/16/22 12:00 97.6 F 06/16/22 12:00 76 16 112/73 99 70 Intake and Output 06/16/22 06/17/22 06/17/22 19:59 03:59 11:59 Intake Total 780 / 2492 1712 / 2492 Output Total 625 / 1570 320 / 1570 625 / 1570 Balance 155 / 922 -320 / 922 1087 / 922 Intake: Intake, Oral Amount 780 / 780 Intake, Total IV Amount 1712 / 1712 Amiodarone HCl 900 mg In 583 / 583 Dextrose 5 % in Water 500 ml @ 33.3 mls/hr IV .[id number] [facility] Rx# :[id number] D5W/0.45% NaCl w/20mEq KCL 1, 1129 / 1129 000 ml @ 75 mls/hr IV .[id number] [facility] Rx#:[id number] Output: Output, Urine Amount 200 / 1145 320 / 1145 625 / 1145 Output, Urine Amount (Catheter) 425 / 425 Armstrong 425 / 425 Other: Weight 216 lb 0.848 oz 216 lb Patient Weight 06/17/22 11:59 Weight 216 lb Laboratory Results - last 24 hr 06/16/22 12:29: WBC 4.8, RBC 4.19 L, Hgb 13.7 L, Hct 46.1, MCV 110.0 H, MCH 32.6 H, MCHC 29.7 L, RDW 14.0, Plt Count 72 L, MPV 9.8, Neut % (Auto) 77.3, Lymph % (Auto) 11.9, [place] % (Auto) 8.6, Eos % (Auto) 0.6, Baso % (Auto) 1.6, Neut # (Auto) 3.7, Lymph # (Auto) 0.6 L, [place]ion # (Auto) 0.4, Eos # (Auto) 0.0, Baso # (Auto) 0.1 06/16/22 12:29: APTT 82.0 H* 06/16/22 14:25: Urine Color Red, Urine Appearance Turbid, Urine pH 6.5, Ur Specific [place] 1.025, Urine Protein 3+, Urine Glucose (UA) Trace, Urine Ketones 1+, Urine Blood 3+, Urine Nitrate Positive, Urine Bilirubin Negative, Urine Urobilinogen 4.0, Ur Leukocyte Esterase 2+ A, Urine RBC Tntc, Urine WBC 5-10, Urine Bacteria Trace 06/17/22 05:50: WBC 4.5 L, RBC 4.13 L, Hgb 13.3 L, Hct 42.3, MCV 102.4 H, MCH 32.3 H, MCHC 31.5 L, RDW 13.7, Plt Count 77 L, MPV 9.0, Neut % (Auto) 77.6, Lymph % (Auto) 11.2, [place] % (Auto) 10.0 H, Eos % (Auto) 0.3, Baso % (Auto) 1.0, Neut # (Auto) 3.5, Lymph # (Auto) 0.5 L, Irion # (Auto) 0.5, Eos # (Auto) 0.0, Baso # (Auto) 0.0 06/17/22 05:50: Sodium 134 L, Potassium 4.4, Chloride 91 L, Carbon Dioxide 40 H, Anion Gap 7.4, BUN 17 D, Creatinine 0.60 L, Estimated Creat Clear 98, Estimated GFR 134, Est GFR ( Amer) 162, Glucose 128 H, Calcium 8.6, Total Bilirubin 0.7, AST 32, ALT 23, Alkaline Phosphatase 48, Total Protein 6.4, Albumin 3.7, Globulin 2.7, Albumin/Globulin Ratio 1.4 I & O for Labs for Last 24 Hours: Intake & Output 06/14/22 06/15/22 06/16/22 06/17/22 11:59 11:59 11:59 11:59 Intake Total 1003 / 1003 360 / 360 370 / 370 2492 / 2492 Output Total 1125 / 1125 1100 / 1100 1000 / 1000 1570 / 1570 Balance -122 / -122 -740 / -740 -630 / -630 922 / 922 Weight 214 lb 4 oz 216 lb 0.566 oz 215 lb 13.321 oz 216 lb Constitut
--- NOTE | 2022-06-17 10:03 | EXP.PULM.CON ---
History of Present Illness History of present illness: Mr. Medeiros 66-year-old male history of COPD, pulmonary nodule lymphadenopathy status post EBUS FNA suggestive adenocarcinoma lung following with Dr. Puente, Melanoma history presented to the hospital on 06/13/22 complaining of progressively worsening shortness of breath needing high flow oxygen supplement since admission admission receiving Tamiflu since with progressive worsening respiratory distress and worsening oxygen requirements, initiated on ertapenem this morning and pulmonary was consulted for further evaluation. [facility] Disclaimer: The information contained in this section may have been updated after the patient was seen, as this information can be updated by other users. Medical History (Updated 06/17/22 @ 13:14 by Arie Sosa MD) AAA (abdominal aortic aneurysm) Abnormal EKG Acute on chronic respiratory failure with hypoxia and hypercapnia Atherosclerotic heart disease CAD (coronary artery disease) Cancer Cataract CHF (congestive heart failure) COPD exacerbation Dizziness DVT (deep venous thrombosis) Dyspnea Gout HAP (hospital-acquired pneumonia) History of chemotherapy History of radiation therapy HLD (hyperlipidemia) Hypertension Hypotension Hypothyroidism Influenza A Lung disease Melanoma Myocardial infarction Pacemaker Sinus problem Thyroid disease Tobacco abuse Surgical History H/O melanoma excision History of cardiac cath History of colonoscopy History of heart artery stent Family History Other AAA (abdominal aortic aneurysm) Coronary artery disease Gout Heart attack Hypertension Social History Smoking Status: Current every day smoker tobacco type: cigarettes packs per day: 1 alcohol intake: current substance use type: denies use 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ional status: retired and disabled Travel in the last 8 weeks: None household members: spouse housing: house caffeine: Yes Review of Systems Constitutional Constitutional: Reports fatigue, Denies frequent falls and Reports weakness Eyes Eyes: Denies eye discharge, Denies dry eyes, Denies irritation and Denies itchy eyes ENT Ears, Nose, Mouth, and Throat: Denies lip swelling and Denies throat swelling *Cardiovascular Cardiovascular: Reports dyspnea, Reports dyspnea on exertion and Reports orthopnea *Respiratory Respiratory: Reports chest congestion, Reports cough, Reports dyspnea, Reports dyspnea on exertion, Reports excessive phlegm production and Reports wheezing *Gastrointestinal Gastrointestinal: Denies abdominal pain, Denies belching and Denies cramping *Musculoskeletal Musculoskeletal: Denies abnormal gait *Neurologic Neurologic: Denies abnormal gait, Denies confusion, Denies convulsions, Denies frequent falls and Reports weakness Psychiatric Psychiatric: Denies confusion Endocrine Endocrine: Reports fatigue and Denies heat intolerance Hematologic/Lymphatic Hematologic/Lymphatic: Denies easy bleeding and Denies lymphadenopathy Allergic/Immunologic Allergic/Immunologic: Denies itchy eyes, Denies lip swelling, Denies throat swelling and Reports wheezing Pulmonology Exam Inpatient Vital signs and Labs for Last 24 Hours: Temp Pulse Resp BP Pulse Ox FiO2 97.4 F L 71 22 119/68 94 L 50 06/17/22 08:00 06/17/22 06:43 06/17/22 08:00 06/17/22 06:00 06/17/22 08:00 06/17/22 08:00 Laboratory Results - last 24 hr 06/16/22 12:29: WBC 4.8, RBC 4.19 L, Hgb 13.7 L, Hct 46.1, MCV 110.0 H, MCH 32.6 H, MCHC 29.7 L, RDW 14.0, Plt Count 72 L, MPV 9.8, Neut % (Auto) 77.3, Lymph % (Auto) 11.9, [place] % (Auto) 8.6, Eos % (Auto) 0.6, Baso % (Auto) 1.6, Neut # (Auto) 3.7, Lymph # (Auto) 0.6 L, [place] # (Auto) 0.4, Eos # (Auto) 0.0, Baso # (Auto) 0.1 06/16/22 12:29: APTT 82.0 H* 06/16/22 14:25: Urine Color Red, Urin
--- NOTE | 2022-06-17 10:08 | XR_ITS ---
FINAL REPORT CLINICAL HISTORY: Hypoxia COMPARISON: One day prior FINDINGS: The heart size is normal. The mediastinum is within normal limits. There are chronic changes in the lung bases. There is no pleural effusion. There is no pneumothorax. The bony thorax is intact. IMPRESSION: No acute cardiopulmonary process. Reviewed, Interpreted and Dictated by Selvin Mitchell MD Transcribed by Dion Fernandez Authenticated and [facility]
[2022-06-17 10:33] LABS: ABG Base Excess 14.1 mmol/L (-2.4-2.3); ABG HCO3 41.1 mmhg (22.0-26.0); ABG Oxygen Saturation 94 % (90-100); ABG PH 7.26 mmol/L (7.35-7.45); ABG PO2 71.5 mmhg (80-100)
[2022-06-17 10:39] LABS: ABG PCO2 93.8 mmhg (35.0-45.0); Allen's Test Acceptable; Oxygen 50% %; Source Left Radial
--- NOTE | 2022-06-17 12:09 | ECG_ITS ---
APPROVED REPORT Exam: Resting ECG HR:126 bpm ECG Measurements Heart Rate 126 AXES SC 162 P 62 QRSd 121 QRS -40 QT 316 T 86 QTc 390 Conclusion SINUS TACHYCARDIA WITH OCCASIONAL VENTRICULAR PREMATURE COMPLEXES LEFT AXIS DEVIATION [QRS AXIS < -30] LEFT BUNDLE BRANCH BLOCK [120+ ms QRS DURATION, 80+ ms Q/S IN V1/V2, 85+ ms R IN I/aVL/V5/V6] ABNORMAL ECG UNCONFIRMED REPORT Electronically signed by : Clark Garland MD 06/18/2022 12:14:13
--- NOTE | 2022-06-17 13:05 | DIET.NUTRFU ---
Patient continues on ABT txand c/o not feeling well. He has a cardiac diet in place with homemade shakes coming BID with 75% intake. IVF is running today, urine output today is already 875ml. Yesterday he had 1275ml and 1350 on 06/14. No BM noted at this time.
--- NOTE | 2022-06-17 14:35 | HMH.ITSTN ---
I called and spoke with nurse Catarina @1:15P , wants me to wait until she speak with the doctor to see when to do CTA chest. Ask her to give us a call when we are able to come get the patient.
--- NOTE | 2022-06-17 15:20 | HMH.ITSTN ---
Spoke with nurse De Los Santos. Still hold off on cta chest. They will call when they are ready for patient to have ct.
--- NOTE | 2022-06-17 15:26 | EXP.CARD.PN ---
Subjective Subjective Date: 06/17/22 Time: 12:00 Principal diagnosis: Flu, A. Fib with RVR Interval history: 66-year-old white male in bed with increasing respiratory distress requiring more oxygen. Exam Data for Last 24 hours Vital signs and Labs for Last 24 Hours: Temp Pulse Resp BP Pulse Ox FiO2 97.9 F 94 H 28 H 139/62 90 L 50 06/17/22 12:40 06/17/22 14:00 06/17/22 14:00 06/17/22 14:00 06/17/22 14:00 06/17/22 11:15 Laboratory Results - last 24 hr 06/16/22 14:25: Urine RBC Tntc, Urine WBC 5-10, Urine Bacteria Trace 06/17/22 05:50: WBC 4.5 L, RBC 4.13 L, Hgb 13.3 L, Hct 42.3, MCV 102.4 H, MCH 32.3 H, MCHC 31.5 L, RDW 13.7, Plt Count 77 L, MPV 9.0, Neut % (Auto) 77.6, Lymph % (Auto) 11.2, [place] % (Auto) 10.0 H, Eos % (Auto) 0.3, Baso % (Auto) 1.0, Neut # (Auto) 3.5, Lymph # (Auto) 0.5 L, [place]igg # (Auto) 0.5, Eos # (Auto) 0.0, Baso # (Auto) 0.0 06/17/22 05:50: Sodium 134 L, Potassium 4.4, Chloride 91 L, Carbon Dioxide 40 H, Anion Gap 7.4, BUN 17 D, Creatinine 0.60 L, Estimated Creat Clear 98, Estimated GFR 134, Est GFR ( Amer) 162, Glucose 128 H, Calcium 8.6, Total Bilirubin 0.7, AST 32, ALT 23, Alkaline Phosphatase 48, Total Protein 6.4, Albumin 3.7, Globulin 2.7, Albumin/Globulin Ratio 1.4 06/17/22 10:08: Specimen Source Left radial, O2 % 50%, ABG pH 7.26 L, ABG pCO2 93.8 H, ABG pO2 71.5 L, ABG HCO3 41.1 H, ABG Total CO2 44.0 H, ABG O2 Saturation 94, ABG Base Excess 14.1 H, Collin Test Acceptable I & O for Last 24 hours: Intake & Output 06/15/22 06/16/22 06/17/22 06/18/22 11:59 11:59 11:59 11:59 Intake Total 360 / 360 370 / 370 2612 / 2612 Output Total 1100 / 1100 1000 / 1000 1570 / 1570 200 / 200 Balance -740 / -740 -630 / -630 1042 / 1042 -200 / -200 Weight 216 lb 0.566 oz 215 lb 13.321 oz 216 lb Microbiology Reports for the Last 24 Hours: Microbiology 06/16/22 14:25 Urine,Catheterized Urine Culture - Preliminary NO GROWTH AFTER 24 HOURS 06/14/22 11:30 Sputum - Expectorated Sputum Gram Stain - Final 06/14/22 11:30 Sputum - Expectorated Sputum Sputum Culture - Final Normal Respiratory Heidy Constitutional Constitutional: moderate distress *Routine Respiratory Exam Respiratory: Present rhonchi, wheezes and diminished air movement *Routine Cardiovascular Exam Cardiovascular: Present RRR Progress Note: A&P Assessment and plan (1) Acute on chronic respiratory failure with hypoxia and hypercapnia: Status: Acute (2) Influenza A: Status: Acute (3) HAP (hospital-acquired pneumonia): Status: Acute (4) Influenza A: Status: Acute (5) Elevated troponin I level: Status: Acute (6) Malignant neoplasm of lung: Status: Acute (7) Tobacco abuse disorder: Status: Chronic (8) History of ASCVD: Status: Chronic (9) Acute exacerbation of chronic obstructive airways disease: Status: Acute (10) Hypothyroidism: Status: Chronic (11) Hypertension: Status: Chronic (12) HLD (hyperlipidemia): Status: Chronic (13) Atrial fibrillation with RVR: Status: Acute Assessment and Plan Assessment and Plan for All Diagnoses:: 1.? Elevated troponin/type II non-ST elevation NM in the setting of influenza and lung cancer.? Echo shows normal EF with no wall motion abnormalities. 2.? Influenza type a in a patient with COPD and lung cancer, on Tamiflu therapy 3.? Stage III lung cancer, status post radiation and now ongoing chemotherapy. 4.? CAD with prior coronary stenting approximately 20 years ago.? Continue aspirin therapy. 5.? Hypertension, controlled 6.? Hyperlipidemia, On statin therapy. 7.? Hypothyroidism, on replacement therapy. 8.? Elevated BNP without evidence of CHF on chest x-ray.? Likely related to RV strain from influenza 9. Paroxysmal atrial fibrillation, currently in sinus rhythm on amiodarone 400 mg twice daily. Anticoagulation stopped due to hematuria. 10. He
[2022-06-17 16:26] LABS: ABG Base Excess 16.3 mmol/L (-2.4-2.3); ABG HCO3 42.2 mmhg (22.0-26.0); ABG Oxygen Saturation 93 % (90-100); ABG PH 7.33 mmol/L (7.35-7.45); ABG PO2 65.3 mmhg (80-100); ABG TCO2 44.7 mmhg (23-27)
[2022-06-17 16:29] LABS: Oxygen 40 %
[2022-06-17 16:30] LABS: Tidal Volume 18/10
[2022-06-17 16:31] LABS: ABG PCO2 81.9 mmhg (35.0-45.0)
--- NOTE | 2022-06-17 18:18 | PC.NURSE ---
pt had 1 unmeasured void this shift Dominique Glass SRNA
--- NOTE | 2022-06-17 20:51 | PC.NURSE ---
PT IS RESTING IN BED WITH FAMILY AT BEDSIDE. EARLIER THIS AFTERNOON PT'S O2 SATURATION WAS 90-92% ON BIPAP. AFTER REPEAT ABG RESULTS RT MADE CHANGES TO THE BIPAP SETTINGS. PCP NOTIFIED OF RESULTS. UNABLE TO TAKE PT TO RADIOLOGY FOR CTA AT THIS TIME DUE TO NOT BEING ABLE TO COME OFF BIPAP. PCP AWARE. LUNG SOUNDS HAVE SCATTERED RHONCHI. ABDOMEN SOFT/NON TENDER WITH ACTIVE BOWEL SOUNDS.VSS. WILL CONTINUE TO MONITOR.
--- NOTE | 2022-06-17 21:01 | HMH.ITSTN ---
spoke to lexis swann , night shift supervisor nurse and resp. nurse about patients scan and they have suggested to wait until tomorrow when patient is stable enough for the transport for the ct scan. they are to call when they want to do it tomorrow
[2022-06-18] VITALS (27 sets, daily range): BP systolic 96–149; BP diastolic 56–81; PULSE 61–93; RESP 11–27; TEMP 36.2–36.6; O2SAT 83–100; BMI 32.9
--- NOTE | 2022-06-18 06:00 | CT_ITS ---
PROCEDURE INFORMATION: Exam: CTA Chest With Contrast Exam date and time: 06/18/2022 10:27 AM Age: 66 years old Clinical indication: Shortness of breath; Additional info: Hypoxia TECHNIQUE: Imaging protocol: Computed tomographic angiography of the chest with contrast. 3D rendering (Not supervised by radiologist): MIP and/or 3D reconstructed images were created by the technologist. Radiation optimization: All CT scans at this facility use at least one of these dose optimization techniques: automated exposure control; mA and/or kV adjustment per patient size (includes targeted exams where dose is matched to clinical indication); or iterative reconstruction. Contrast material: ISOVUE; Contrast volume: 70 ml; Contrast route: INTRAVENOUS (IV); COMPARISON: CT CHEST W CON 03/22/2022 1:18 PM FINDINGS: Pulmonary arteries: Prominence of the main pulmonary artery. Clinically correlate regarding pulmonary arterial hypertension. There is suboptimal opacification of pulmonary arteries due to contrast bolus timing. There is no large or central pulmonary embolus. Evaluation of the peripheral pulmonary arteries is limited.. Great vessels off aortic arch: Mild-moderate stenosis proximal left subclavian artery. Aorta: Regions of atherosclerotic vascular calcification involving the aortic arch. Lungs: Patchy regions of airspace consolidation and subsegmental atelectasis right lower lobe. Findings new. Interim development of regions of pleural based nodularity medial aspect right lung apex. This measures 17 x 7 mm in maximum dimensions. Pleural spaces: Additional regions of pleural reactive change demonstrated inferiorly in the right hemithorax. New regions of of pleural base nodularity posteriorly in the left lower lobe. Superimposed regions of consolidation and atelectasis at the left lung base. Heart: Coronary artery calcification. Lymph nodes: Nonspecific mediastinal lymph nodes. Findings stable. Liver: Hepatic steatosis. Solitary cyst again demonstrated in the right lobe of the liver just beneath the hemidiaphragm. Findings unchanged. Bones/joints: Unremarkable. No acute fracture. Soft tissues: Unremarkable. IMPRESSION: 1. No evidence of large or central pulmonary embolus. Interpretation somewhat limited secondary to suboptimal bolus timing. 2. Bibasilar regions of consolidation and atelectasis. Findings new. Findings may reflect post radiation change. An infectious etiology could not be excluded. 3. Scattered pleural-based regions of nodularity and reactive change demonstrated bilaterally. Findings may reflect post radiation changes. 4. Prominence of the main pulmonary artery. Clinically correlate regarding pulmonary arterial hypertension.
--- NOTE | 2022-06-18 06:39 | PC.NURSE ---
pt restless most of night, dr babin called at 2353 06/17/22 for pt with restlessness and moaning out on occasion, pt unable to communicate needs appropriately and only states i cant breath 02 sats are 97% on bipap and lung sounds very diminished, tylenol was given at 2100 with no help, ativan order of 0.5mg po q8 hours as needed given, repeated and verified, pt seemed to rest for a short while after ativan given, pt voiding via urinal with assist from family, note brown/tea colored urine, telemetry remains sinus arrhythmia with hr 78-79, family remains at bedside through the night and voiced some concern about transferring patient out to higher level of care, informed them i will pass along to oncoming nurse to inform dr cao upon rounds this am, pt in stable condition at this time.
--- NOTE | 2022-06-18 07:49 | HMH.ITSTN ---
[facility] went to check on patient at 6am -- nurse said patient has been on bipap all night not stable enough to come down for PE study will call if he improves to come down.
--- NOTE | 2022-06-18 08:46 | EXP.ACUTE.PN ---
Subjective *Date: 06/18/22 *Time: 08:46 Interval history: BiPAP was restarted yesterday. Patient was restless over night andd seemed to do better after receiving a dose of Lorazepam. CTA has not been done yet. Medical Exam Vital signs and Labs for Last 24 Hours: Vital Signs Temp Pulse Pulse Resp BP Pulse Ox FiO2 06/18/22 04:00 70 06/18/22 06:33 40 06/18/22 06:32 69 06/18/22 06:32 76 06/18/22 06:00 76 24 106/72 L 97 06/18/22 05:00 79 24 147/57 H 94 L 06/18/22 05:45 97.9 F 06/18/22 03:00 75 26 H 118/68 93 L 06/18/22 02:41 71 06/18/22 02:41 78 06/18/22 02:41 40 06/17/22 20:00 93 H 06/18/22 00:00 76 06/18/22 04:00 78 94 L 06/18/22 04:00 78 26 H 103/56 L 94 L 06/18/22 01:00 78 22 110/59 L 97 06/18/22 00:00 78 24 116/67 97 06/17/22 23:00 78 26 H 104/60 L 97 06/18/22 02:00 78 24 105/61 L 94 L 06/18/22 00:00 97 06/18/22 00:00 97.3 F L 06/17/22 21:00 85 24 116/67 97 06/17/22 20:00 86 26 H 121/63 95 06/17/22 22:00 98.5 F 85 24 117/70 97 06/17/22 20:00 86 24 95 06/17/22 21:47 84 06/17/22 21:47 81 06/17/22 21:47 40 06/17/22 16:00 92 L 06/17/22 20:00 98.5 F 06/17/22 18:27 88 06/17/22 18:27 86 06/17/22 18:27 40 06/17/22 18:00 87 24 123/69 96 06/17/22 16:00 94 L 06/17/22 17:00 91 H 22 126/67 94 L 06/17/22 16:00 96 H 24 107/60 L 94 L 06/17/22 12:00 84 06/17/22 17:00 40 06/17/22 16:00 99.2 F 06/17/22 10:55 77 06/17/22 10:55 77 06/17/22 14:20 40 06/17/22 15:41 90 06/17/22 15:41 98 H 06/17/22 14:00 94 H 28 H 139/62 90 L 06/17/22 12:40 97.9 F 06/17/22 12:00 86 20 131/73 93 L 06/17/22 11:15 50 06/17/22 10:00 64 18 107/68 L 98 50 Intake and Output 06/17/22 06/18/22 06/18/22 23:59 07:59 15:59 Intake Total 1090 / 2922 825 / 825 Output Total 0 / 1045 1250 / 1250 Balance 1090 / 1877 -425 / -425 Intake: Intake, Oral Amount 120 / 240 0 / 0 Intake, Total IV Amount 970 / 2682 825 / 825 Cefepime HCl 2 gm In 0.9 % 100 / 100 Sodium Chloride 100 ml @ 200 mls/hr IV Q8H [facility] Rx#:[id number] D5W/0.45% NaCl w/20mEq KCL 1, 970 / 2099 725 / 725 000 ml @ 75 mls/hr IV .[id number] [facility] Rx#:[id number] Output: Output, Urine Amount 0 / 1045 1250 / 1250 Other: Number of Unmeasured Voids 1 0 Weight 217 lb 5 oz Patient Weight 06/18/22 23:59 Weight 217 lb 5 oz Laboratory Results - last 24 hr 06/17/22 10:08: Specimen Source Left radial, O2 % 50%, ABG pH 7.26 L, ABG pCO2 93.8 H, ABG pO2 71.5 L, ABG HCO3 41.1 H, ABG Total CO2 44.0 H, ABG O2 Saturation 94, ABG Base Excess 14.1 H, Collin Test Acceptable 06/17/22 15:47: Specimen Source r brachial, O2 % 40, ABG pH 7.33 L, ABG pCO2 81.9 H, ABG pO2 65.3 L, ABG HCO3 42.2 H, ABG Total CO2 44.7 H, ABG O2 Saturation 93, ABG Base Excess 16.3 H, Tidal Volume 18/10 I & O for Labs for Last 24 Hours: Intake & Output 06/15/22 06/16/22 06/17/22 06/18/22 23:59 23:59 23:59 23:59 Intake Total 370 / 370 780 / 780 2922 / 2922 825 / 825 Output Total 1350 / 1350 1275 / 1275 1045 / 1045 1250 / 1250 Balance -980 / -980 -495 / -495 1877 / 1877 -425 / -425 Weight 215 lb 13.321 oz 216 lb 0.848 oz 216 lb 217 lb 5 oz Microbiology Reports for the Last 24 Hours: Microbiology 06/16/22 14:25 Urine,Catheterized Urine Culture - Preliminary NO GROWTH AFTER 24 HOURS 06/14/22 11:30 Sputum - Expectorated Sputum Gram Stain - Final 06/14/22 11:30 Sputum - Expectorated Sputum Sputum Culture - Final Normal Respiratory Heidy Constitutional: Present no acute distress Respiratory: Present decreased breath sounds, rh
[2022-06-18 12:18] LABS: ABG Base Excess 12.5 mmol/L (-2.4-2.3); ABG HCO3 37.9 mmhg (22.0-26.0); ABG Oxygen Saturation 90 % (90-100); ABG PH 7.37 mmol/L (7.35-7.45); ABG PO2 56.6 mmhg (80-100); ABG TCO2 39.9 mmhg (23-27)
[2022-06-18 13:25] LABS: Allen's Test ACCEPTABLE; Oxygen 4 LPM %; Source Left Radial
[2022-06-18 13:26] LABS: ABG PCO2 67.3 mmhg (35.0-45.0)
--- NOTE | 2022-06-18 20:51 | PC.NURSE ---
pt had accident and voided in bed, srna Jennifer changed sheets
[2022-06-19] VITALS (23 sets, daily range): BP systolic 98–148; BP diastolic 52–71; PULSE 59–90; RESP 0–28; TEMP 35.8–36.9; O2SAT 93–100; BMI 33.2
--- NOTE | 2022-06-19 07:18 | EXP.ACUTE.PN ---
Subjective *Date: 06/19/22 *Time: 07:18 Interval history: No new complaints this morning. Patient's reports that patient was restless while wearing Bipap mask last night. Had 2 doses of Ativan which helped calm him. Medical Exam Vital signs and Labs for Last 24 Hours: Vital Signs Temp Pulse Pulse Resp BP Pulse Ox FiO2 06/19/22 04:00 70 06/19/22 06:00 74 18 105/53 L 99 06/19/22 04:00 61 16 98/61 L 98 06/19/22 05:56 65 06/19/22 05:56 67 06/19/22 05:56 97 40 06/19/22 04:00 96.6 F L 06/19/22 02:20 67 06/19/22 02:05 63 06/19/22 00:00 62 06/18/22 20:00 83 06/19/22 02:00 59 L 14 121/60 100 06/19/22 00:00 66 16 101/52 L 97 06/19/22 00:00 97.1 F L 06/18/22 20:00 96 06/18/22 22:43 50 06/18/22 22:21 67 06/18/22 22:21 65 06/18/22 22:21 50 06/18/22 22:00 61 11 L 115/58 L 98 06/18/22 20:00 97.2 F L 70 12 117/72 97 06/18/22 20:00 72 19 102/59 L 99 06/18/22 16:00 70 06/18/22 18:00 74 24 113/65 94 L 06/18/22 17:43 74 06/18/22 17:43 70 06/18/22 17:43 50 06/18/22 17:43 98 50 06/18/22 16:00 97.4 F L 06/18/22 16:00 78 22 104/64 L 100 06/18/22 14:00 79 20 96/58 L 92 L 06/18/22 12:00 80 06/18/22 08:00 80 06/18/22 13:45 50 06/18/22 14:08 80 06/18/22 14:08 78 06/18/22 14:08 50 06/18/22 12:00 97.8 F 06/18/22 13:00 93 H 22 149/81 H 91 L 06/18/22 12:00 81 20 126/59 L 83 L 06/18/22 11:00 74 22 124/69 94 L 06/18/22 10:00 82 20 112/66 97 06/18/22 10:52 75 06/18/22 10:52 79 06/18/22 10:52 40 06/18/22 09:00 81 20 122/70 93 L 06/18/22 08:00 78 22 119/76 94 L 06/18/22 08:00 97.3 F L Intake and Output 06/18/22 06/18/22 06/19/22 15:59 23:59 07:59 Intake Total 925 / 1750 0 / 0 Output Total 1200 / 2450 0 / 2450 0 / 0 Balance -1200 / -700 925 / -700 0 / 0 Intake: Intake, Oral Amount 0 / 0 Intake, Total IV Amount 925 / 1750 Cefepime HCl 2 gm In 0.9 % 100 / 200 Sodium Chloride 100 ml @ 200 mls/hr IV Q8H TITO Rx#:[id number] D5W/0.45% NaCl w/20mEq KCL 1, 825 / 1550 000 ml @ 75 mls/hr IV .[id number] TITO Rx#:[id number] Output: Output, Urine Amount 1200 / 2450 0 / 2450 0 / 0 Other: Number of Unmeasured Voids 1 1 Number of Bowel Movements 1 Weight 219 lb 1 oz Patient Weight 06/19/22 23:59 Weight 219 lb 1 oz Laboratory Results - last 24 hr 06/18/22 12:16: Specimen Source Left radial, O2 % 4 lpm, ABG pH 7.37, ABG pCO2 67.3 H, ABG pO2 56.6 L, ABG HCO3 37.9 H, ABG Total CO2 39.9 H, ABG O2 Saturation 90, ABG Base Excess 12.5 H, Collin Test Acceptable I & O for Labs for Last 24 Hours: Intake & Output 06/16/22 06/17/22 06/18/22 06/19/22 23:59 23:59 23:59 23:59 Intake Total 780 / 780 2922 / 2922 1750 / 1750 0 / 0 Output Total 1275 / 1275 1045 / 1045 2450 / 2450 0 / 0 Balance -495 / -495 1877 / 1877 -700 / -700 0 / 0 Weight 216 lb 0.848 oz 216 lb 217 lb 5 oz 219 lb 1 oz Microbiology Reports for the Last 24 Hours: Microbiology 06/16/22 14:25 Urine,Catheterized Urine Culture - Final NO GROWTH AFTER 48 HOURS 06/13/22 12:50 Blood - Angio Blood Culture - Final NO GROWTH AFTER 5 DAYS 06/13/22 12:50 Blood - Angio Blood Culture - Final NO GROWTH AFTER 5 DAYS Constitutional: Present no acute distress Comment:: Sitting in chair now Respiratory: Present decreased breath sounds, rhonchi and wheezes Cardiac: Present Reg Rate and Rhythm GI: Present soft; Absent distention or tenderness Extremities: Present edema; Absent tenderness Assessment and Plan *Assessment and plan (1) Influenza A: Status:
[2022-06-19 08:38] LABS: Basophils % 0.5 % (0.1-2.0); Eosinophils % 0.5 % (0.1-12.0); Hematocrit 40.2 % (42.0-52.0); Hemoglobin 12.6 g/dL (14.1-18.0); Lymphocytes # 0.6 K/mm3 (0.7-4.5); Lymphocytes % 19.2 % (10-50); Mean Corpuscular HGB Conc 31.4 g/dL (31.8-35.4); Mean Corpuscular Hemoglobin 32.7 pg (27.0-31.2); Mean Corpuscular Volume 104.1 fl (80-94); Mean Platelet Volume 9.6 fl (7.4-10.4); Monocytes # 0.3 K/mm3 (0.1-1.0); Neutrophils % 69.8 % (37.0-80.0); Platelet Count 89 K/mm3 (142-424); Red Blood Count 3.86 M/mm3 (4.60-6.20); Red Cell Distribution Width 13.8 % (11.5-17.5); White Blood Count 2.8 K/mm3 (4.8-10.8)
[2022-06-19 08:40] LABS: Chloride 93 mmol/L (98-107); Potassium 3.7 mmoL/L (3.5-5.1); Sodium 136 mmol/L (136-145)
[2022-06-19 08:43] LABS: Blood Urea Nitrogen 12 mg/dl (9-20); Calcium 8.6 mg/dl (8.4-10.2); Creatinine Clearance Estimated 99 mL/min (50-200); Estimated Glomerular Filt Rate 112 ml/min (>60); GFR (African American) 136 ML/MIN (>60); Glucose 92 mg/dl (74-100)
[2022-06-19 08:56] LABS: Anion Gap 1.7 mEq/L (5-15); Carbon Dioxide 45 mmol/L (22.0-30.0)
--- NOTE | 2022-06-19 17:54 | PC.NURSE ---
Pt more confused at this time. Pt placed on bipap at this time and abg ordered per Dr. Blancas option trader for Dr. Wang. Otherwise VSS. at bedside. Fine crackles noted to throughout r lung. CB in reach and at bedside. Pt has ate a small amt this shift. Pt alert to self and b day only at this time.
[2022-06-19 17:57] LABS: Allen's Test y; Oxygen 4 %; Source rr
--- NOTE | 2022-06-19 18:28 | PC.NURSE ---
Dr. Blancas notified of ABG results. Pt remains on bipap at this time.
[2022-06-19 19:30] LABS: ABG HCO3 44.1 mmhg (22.0-26.0); ABG PCO2 93.3 mmhg (35.0-45.0); ABG PH 7.29 mmol/L (7.35-7.45); ABG PO2 70.9 mmhg (80-100); ABG TCO2 46.9 mmhg (23-27)
[2022-06-19 19:31] LABS: ABG Base Excess 17.5 mmol/L (-2.4-2.3); ABG Oxygen Saturation 94 % (90-100)
[2022-06-20] VITALS (18 sets, daily range): BP systolic 82–153; BP diastolic 45–83; PULSE 63–100; RESP 17–28; TEMP 36.2–37; O2SAT 89–98; BMI 33.3
--- NOTE | 2022-06-20 02:48 | PC.NURSE ---
pt very restless and confused throughout shift, pt very aggressive currently, pt has refused bipap all shift and staff has done best to keep bipap on but pt was adamant needed mask off, pt pulling at all cords and external devices frequently; notified house and RT Will, both at bedside and attempted to place nasal cannula on pt for mask break but pt would not wear nasal cannula either, pt's sats decreased to 79% and face and lips started darkening, informed pt if couldn't wear oxygen would need to intubate him as his sats were extremely low without oxygen, pt reluctantly allowed staff to place bipap back on at this time oxygen saturations 92%
--- NOTE | 2022-06-20 03:33 | PC.NURSE ---
pt refuses to wear bipap, RT Will placed 4LNC on pt, pt continues to take nasal cannula off and sats decrease to low 80's relatively quickly, staff re-directing and educating pt on importance of oxygen and all lines/cords unsuccessfully, staff rounding frequently and sitting in room when able to so that pt does not take oxygen off or pull at any more lines/cords
--- NOTE | 2022-06-20 08:07 | XR_ITS ---
FINAL REPORT CLINICAL HISTORY: follow up COMPARISON: June 17, 2022 FINDINGS: A single portable view of the chest was obtained. The heart size and pulmonary vascularity are within normal limits. The mediastinum is within normal limits. There are worsening bibasilar pulmonary opacities consistent with worsening pneumonia or atelectasis. The bony thorax is intact. IMPRESSION: Worsening bibasilar pneumonia or atelectasis. Reviewed, Interpreted and Dictated by Noel Yi III, MD Transcribed by Payal Manuel Authenticated and [facility]
--- NOTE | 2022-06-20 08:31 | EXP.PN ---
Subjective *Date: 06/20/22 *Time: 09:15 Interval history: Patient has had a restless night making wearing BiPAP and cardiac leads. Difficult. Ativan does not seem to help. He remains disoriented. He has had periods of low blood pressure as well. Patient states no to chest pain, shortness of breath, and nausea, CBC with low platelet count and white blood cell count. Renal function and potassium remain normal. Exam Data for Last 24 hours Vital signs and Labs for Last 24 Hours: Temp Pulse Resp BP Pulse Ox FiO2 97.1 F L 81 22 129/47 L 92 L 40 06/20/22 08:00 06/20/22 08:00 06/20/22 08:00 06/20/22 08:00 06/20/22 08:00 06/20/22 00:00 Laboratory Results - last 24 hr 06/19/22 06:48: WBC 2.8 L D, RBC 3.86 L, Hgb 12.6 L, Hct 40.2 L, MCV 104.1 H, MCH 32.7 H, MCHC 31.4 L, RDW 13.8, Plt Count 89 L, MPV 9.6, Neut % (Auto) 69.8, Lymph % (Auto) 19.2, [place] % (Auto) 10.0 H, Eos % (Auto) 0.5, Baso % (Auto) 0.5, Neut # (Auto) 2.0, Lymph # (Auto) 0.6 L, [place] # (Auto) 0.3, Eos # (Auto) 0.0, Baso # (Auto) 0.0 06/19/22 06:48: Sodium 136, Potassium 3.7, Chloride 93 L, Carbon Dioxide 45 H*, Anion Gap 1.7 L, BUN 12 D, Creatinine 0.70, Estimated Creat Clear 99, Estimated GFR 112, Est GFR ( Amer) 136, Glucose 92, Calcium 8.6 06/19/22 17:36: Specimen Source rr, O2 % 4, ABG pH 7.29 L, ABG pCO2 93.3 H, ABG pO2 70.9 L, ABG HCO3 44.1 H, ABG Total CO2 46.9 H, ABG O2 Saturation 94, ABG Base Excess 17.5 H, Collin Test y I & O for Last 24 hours: Intake & Output 06/17/22 06/18/22 06/19/22 06/20/22 11:59 11:59 11:59 11:59 Intake Total 2612 / 2612 1915 / 1915 1165 / 1165 1285 / 1285 Output Total 1570 / 1570 2150 / 2150 900 / 900 1400 / 1400 Balance 1042 / 1042 -235 / -235 265 / 265 -115 / -115 Weight 216 lb 217 lb 5 oz 219 lb 1 oz 220 lb 3 oz Constitutional Constitutional: mild distress Comments: Restless. Feels better sitting up leaning over. O2 sats have dropped and placed back on BiPAP. *Routine Respiratory Exam Respiratory: Present respiratory distress, rhonchi and crackles Comments: Placed back on BiPAP. *Routine Cardiovascular Exam Cardiovascular: Present RRR *Routine Abdominal Exam Abdominal: Present soft and normoactive bowel sounds; Absent tenderness or distended *Routine Extremities Exam Extremities: Absent edema or calf tenderness Comments: Has SCUDs on bilaterally *Routine Neurological Exam Neurological: Present alert, altered mental status and moving all extremities; Absent oriented X3 Comments: Does answer questions. Assessment and Plan *Assessment and plan (1) Influenza A: Status: Acute Category: Medical Code(s): J10.1 - Influenza due to other identified influenza virus with other respiratory manifestations (2) Elevated troponin I level: Status: Acute Category: Medical Code(s): R77.8 - Other specified abnormalities of plasma proteins (3) Malignant neoplasm of lung: Status: Acute Category: Medical Code(s): C34.90 - Malignant neoplasm of unspecified part of unspecified bronchus or lung (4) Tobacco abuse disorder: Status: Chronic Category: Medical Code(s): Z72.0 - Tobacco use (5) History of ASCVD: Status: Chronic Category: Medical Code(s): Z86.79 - Personal history of other diseases of the circulatory system (6) Acute exacerbation of chronic obstructive airways disease: Status: Acute Category: Medical Code(s): J44.1 - Chronic obstructive pulmonary disease with (acute) exacerbation (7) Hypothyroidism: Status: Chronic Category: Medical Code(s): E03.9 - Hypothyroidism, unspecified (8) Hypertension: Status: Chronic Qualifiers: Hypertension type: essential hypertension Qualified Code(s): I10 - Essential (primary) hypertension Category: Medical Code(s): I10 - Essential (primary) hypertension (9) HLD (hyperlipidemia): Status: Chronic
[2022-06-20 08:38] LABS: ABG HCO3 37.1 mmhg (22.0-26.0); ABG Oxygen Saturation 93 % (90-100); ABG PH 7.32 mmol/L (7.35-7.45); ABG PO2 69.1 mmhg (80-100); ABG TCO2 39.3 mmhg (23-27); Allen's Test Acceptable; Oxygen 40% %; Pressure Support 18/10; Source Left Radial; Vent Rate 22
[2022-06-20 08:39] LABS: ABG PCO2 73.6 mmhg (35.0-45.0)
[2022-06-20 08:54] LABS: Basophils % 0.8 % (0.1-2.0); Eosinophils % 0.8 % (0.1-12.0); Hematocrit 39.3 % (42.0-52.0); Hemoglobin 12.4 g/dL (14.1-18.0); Lymphocytes # 0.4 K/mm3 (0.7-4.5); Lymphocytes % 15.6 % (10-50); Mean Corpuscular HGB Conc 31.5 g/dL (31.8-35.4); Mean Corpuscular Hemoglobin 33.1 pg (27.0-31.2); Mean Corpuscular Volume 105.3 fl (80-94); Mean Platelet Volume 9.8 fl (7.4-10.4); Monocytes # 0.3 K/mm3 (0.1-1.0); Monocytes % 12.1 % (1.7-9.3); Neutrophils # 1.8 K/mm3 (1.8-7.8); Neutrophils % 70.6 % (37.0-80.0); Platelet Count 106 K/mm3 (142-424); Red Blood Count 3.73 M/mm3 (4.60-6.20); Red Cell Distribution Width 13.8 % (11.5-17.5); White Blood Count 2.5 K/mm3 (4.8-10.8)
[2022-06-20 08:59] LABS: Chloride 91 mmol/L (98-107)
[2022-06-20 09:00] LABS: Potassium 3.6 mmoL/L (3.5-5.1); Sodium 137 mmol/L (136-145)
[2022-06-20 09:02] LABS: Alanine Aminotransferase 18 U/L (12-78); Alkaline Phosphatase 50 U/L (38-126); Aspartate Amino Transferase 21 U/L (17-59); Bilirubin,Total 0.9 mg/dl (0.2-1.3); Blood Urea Nitrogen 12 mg/dl (9-20); Creatinine Clearance Estimated 100 mL/min (50-200); Estimated Glomerular Filt Rate 112 ml/min (>60); GFR (African American) 136 ML/MIN (>60)
[2022-06-20 09:03] LABS: Albumin Level 3.4 g/dl (3.5-5.0); Albumin/Globulin Ratio 1.2 (1.1-1.8); Calcium 8.9 mg/dl (8.4-10.2); Globulin 2.9 g/dL (1.3-3.2); Glucose 91 mg/dl (74-100); Total Protein,Serum 6.3 g/dl (6.3-8.2)
[2022-06-20 09:10] LABS: Anion Gap 3.6 mEq/L (5-15); Carbon Dioxide 46 mmol/L (22.0-30.0)
--- NOTE | 2022-06-20 10:53 | EXP.PULM.PN ---
Subjective *Date: 06/20/22 *Time: 13:47 Pulmonology Exam Inpatient Vital signs and Labs for Last 24 Hours: Temp Pulse Resp BP Pulse Ox FiO2 97.1 F L 74 20 122/67 97 40 06/20/22 08:00 06/20/22 10:34 06/20/22 10:00 06/20/22 10:00 06/20/22 10:00 06/20/22 10:34 Laboratory Results - last 24 hr 06/19/22 17:36: Specimen Source rr, O2 % 4, ABG pH 7.29 L, ABG pCO2 93.3 H, ABG pO2 70.9 L, ABG HCO3 44.1 H, ABG Total CO2 46.9 H, ABG O2 Saturation 94, ABG Base Excess 17.5 H, Collin Test y 06/20/22 08:07: Specimen Source Left radial, O2 % 40%, ABG pH 7.32 L, ABG pCO2 73.6 H, ABG pO2 69.1 L, ABG HCO3 37.1 H, ABG Total CO2 39.3 H, ABG O2 Saturation 93, ABG Base Excess 11.0 H, Collin Test Acceptable, Vent Rate 22 06/20/22 08:40: WBC 2.5 L, RBC 3.73 L, Hgb 12.4 L, Hct 39.3 L, MCV 105.3 H, MCH 33.1 H, MCHC 31.5 L, RDW 13.8, Plt Count 106 L, MPV 9.8, Neut % (Auto) 70.6, Lymph % (Auto) 15.6, [place] % (Auto) 12.1 H, Eos % (Auto) 0.8, Baso % (Auto) 0.8, Neut # (Auto) 1.8, Lymph # (Auto) 0.4 L, [place] # (Auto) 0.3, Eos # (Auto) 0.0, Baso # (Auto) 0.0 06/20/22 08:40: Sodium 137, Potassium 3.6, Chloride 91 L, Carbon Dioxide 46 H*, Anion Gap 3.6 L, BUN 12, Creatinine 0.70, Estimated Creat Clear 100, Estimated GFR 112, Est GFR ( Amer) 136, Glucose 91, Calcium 8.9, Total Bilirubin 0.9, AST 21, ALT 18, Alkaline Phosphatase 50, Total Protein 6.3, Albumin 3.4 L, Globulin 2.9, Albumin/Globulin Ratio 1.2 I & O for Labs for Last 24 Hours: Intake & Output 06/17/22 06/18/22 06/19/22 06/20/22 23:59 23:59 23:59 23:59 Intake Total 2922 / 2922 1750 / 1750 1465 / 1465 60 / 60 Output Total 1045 / 1045 2450 / 2450 700 / 700 1100 / 1100 Balance 1877 / 1877 -700 / -700 765 / 765 -1040 / -1040 Weight 216 lb 217 lb 5 oz 219 lb 1 oz 220 lb 3 oz Constitutional: Present severe distress Head: Present normocephalic and atraumatic ENT: Present normal exam, normal oropharynx and mucous membranes moist Neck: Present normal inspection and full ROM Respiratory: Present prolonged expiratory phase, respiratory distress, wheezes, crackles and diminished air movement; Absent able to speak in complete sentences Cardiac: Present S1/S2, Tachycardia and radial pulses present GI: Present soft and distention; Absent tenderness or guarding Skin: Present intact; Absent cyanosis or jaundice Neuro: Present alert, awake and oriented x 3 Extremities: Present normal inspection; Absent clubbing or cyanosis Psychiatric: Present normal affect and cooperative Assessment and Plan *Assessment and plan (1) Acute on chronic respiratory failure with hypoxia and hypercapnia: Status: Acute Category: Medical Code(s): J96.21 - Acute and chronic respiratory failure with hypoxia; J96.22 - Acute and chronic respiratory failure with hypercapnia (2) Influenza A: Status: Acute Category: Medical Code(s): J10.1 - Influenza due to other identified influenza virus with other respiratory manifestations (3) HAP (hospital-acquired pneumonia): Status: Acute Category: Medical Code(s): J18.9 - Pneumonia, unspecified organism; Y95 - Nosocomial condition Plan #Acute hypoxic respiratory failure: #Influenza pneumonia: #HAP: Mr. Medeiros 66-year-old male history of COPD, pulmonary nodule lymphadenopathy status post EBUS FNA suggestive adenocarcinoma lung following with Dr. Puente, Melanoma history presented to the hospital on 06/13/22 complaining of progressively worsening shortness of breath needing high flow oxygen supplement since admission admission receiving Tamiflu since with progressive worsening respiratory distress and worsening oxygen requirements, initiated on ertapenem this morning and pulmonary was consulted for further evaluation. WBC relatively stable since admission. Echocardiogram from this admission technically poor, EF at 55% diastolic parameters inconclusive. CTA no evidence of pulmonary embolism, bilateral lower lobe infiltrates along with dense lower
--- NOTE | 2022-06-20 12:34 | EXP.CARD.PN ---
Subjective Subjective Date: 06/20/22 Time: 10:30 Principal diagnosis: Flu, A. Fib with RVR Interval history: This is a 66-year-old white gentleman who presented to the emergency department with increasing respiratory distress and requiring more oxygen. The patient went into atrial fibrillation with RVR. He is currently in sinus rhythm. Today he is still complaining of shortness of breath. He is on a BiPAP and states that he feels short of breath all the time. His oxygen saturations are 97% while I am in the room. He denies any chest pain or pressure. He denies any fever, chills, nausea, vomiting or diarrhea. Exam Data for Last 24 hours Vital signs and Labs for Last 24 Hours: Temp Pulse Resp BP Pulse Ox FiO2 97.1 F L 81 20 121/83 92 L 40 06/20/22 08:00 06/20/22 12:00 06/20/22 12:00 06/20/22 12:00 06/20/22 12:00 06/20/22 10:34 Laboratory Results - last 24 hr 06/19/22 17:36: Specimen Source rr, O2 % 4, ABG pH 7.29 L, ABG pCO2 93.3 H, ABG pO2 70.9 L, ABG HCO3 44.1 H, ABG Total CO2 46.9 H, ABG O2 Saturation 94, ABG Base Excess 17.5 H, Collin Test y 06/20/22 08:07: Specimen Source Left radial, O2 % 40%, ABG pH 7.32 L, ABG pCO2 73.6 H, ABG pO2 69.1 L, ABG HCO3 37.1 H, ABG Total CO2 39.3 H, ABG O2 Saturation 93, ABG Base Excess 11.0 H, Collin Test Acceptable, Vent Rate 22 06/20/22 08:40: WBC 2.5 L, RBC 3.73 L, Hgb 12.4 L, Hct 39.3 L, MCV 105.3 H, MCH 33.1 H, MCHC 31.5 L, RDW 13.8, Plt Count 106 L, MPV 9.8, Neut % (Auto) 70.6, Lymph % (Auto) 15.6, [place] % (Auto) 12.1 H, Eos % (Auto) 0.8, Baso % (Auto) 0.8, Neut # (Auto) 1.8, Lymph # (Auto) 0.4 L, [place] # (Auto) 0.3, Eos # (Auto) 0.0, Baso # (Auto) 0.0 06/20/22 08:40: Sodium 137, Potassium 3.6, Chloride 91 L, Carbon Dioxide 46 H*, Anion Gap 3.6 L, BUN 12, Creatinine 0.70, Estimated Creat Clear 100, Estimated GFR 112, Est GFR ( Amer) 136, Glucose 91, Calcium 8.9, Total Bilirubin 0.9, AST 21, ALT 18, Alkaline Phosphatase 50, Total Protein 6.3, Albumin 3.4 L, Globulin 2.9, Albumin/Globulin Ratio 1.2 I & O for Last 24 hours: Intake & Output 06/17/22 06/18/22 06/19/22 06/20/22 23:59 23:59 23:59 23:59 Intake Total 2922 / 2922 1750 / 1750 1465 / 1465 60 / 60 Output Total 1045 / 1045 2450 / 2450 700 / 700 1100 / 1100 Balance 1877 / 1877 -700 / -700 765 / 765 -1040 / -1040 Weight 216 lb 217 lb 5 oz 219 lb 1 oz 220 lb 3 oz Narrative: Telemetry strip is sinus rhythm with a rate in the 60s and 70s. Echocardiogram shows: 1.? Technically difficult and poor study as described above.? Normal left ventricular size, estimated ejection fraction 55% with no regional wall motion abnormality in the obtained views.? Endocardial surfaces and valvular structures are very poorly visualized. 2.? Mildly enlarged right ventricle with normal contractility. 3.? Mild mitral and tricuspid regurgitation. 4.? No significant pericardial effusion. 5.? Inferior vena cava is poorly visualized Constitutional Constitutional: mild distress and obese *Routine HEENT Exam Head: Present normocephalic and atraumatic ENT: Present mucous membranes moist *Routine Neck Exam Neck: Present supple, full ROM and normal carotid upstroke; Absent JVD, carotid bruit or lymphadenopathy *Routine Respiratory Exam Respiratory: Present rhonchi, wheezes and diminished air movement *Routine Cardiovascular Exam Cardiovascular: Present RRR, Normal S1 and Normal S2; Absent murmur or gallop *Routine Abdominal Exam Abdominal: Present soft and normoactive bowel sounds; Absent tenderness, distended or organomegaly *Routine Extremities Exam Extremities: Present full ROM, pulses intact and normal capillary refill; Absent cyanosis, clubbing or edema *Routine Skin Exam Skin: Present intact and warm; Absent erythema *Routine Neurological Exam Neurological: Present alert, oriented X3 and CN II-XII intact; Absent sensory deficit or motor deficit Routine Psychiatric Exam Psychiatric: Present normal affect Progress Note: A&P Assessment and plan
--- NOTE | 2022-06-20 15:14 | DIET.NUTRFU ---
Patient wearing Bipap most of the day with lots of encouragement. Spoke to nursing staff they did offer meal but he only consumed the high protein milkshake. They will encourage him to consume again for dinner. Meal intake was better monday ate 75% of breakfast and 75% lunch with 50% dinner. will continue to monitor meal intake
[2022-06-20 16:03] LABS: ABG Base Excess 22.4 mmol/L (-2.4-2.3); ABG HCO3 46.9 mmhg (22.0-26.0); ABG Oxygen Saturation 91 % (90-100); ABG PH 7.42 mmol/L (7.35-7.45); ABG TCO2 49.1 mmhg (23-27)
[2022-06-20 16:06] LABS: Allen's Test Acceptable; Oxygen 40% %; Pressure Support 20/10; Source Right Radial; Vent Rate 24
[2022-06-20 16:08] LABS: ABG PCO2 73.9 mmhg (35.0-45.0)
[2022-06-21] VITALS (17 sets, daily range): BP systolic 116–172; BP diastolic 62–97; PULSE 60–98; RESP 18–24; TEMP 36.6–36.8; O2SAT 91–97; BMI 33.3
--- NOTE | 2022-06-21 03:52 | PC.NURSE ---
Pt has not slept at all this shift. Has been restless and uncooperative with care. Pt has been on and off Bipap tonight. Bipap placed after PM med pass. Pt continued to take off mask or break mask through 0100. Pt then refused to put Bipap back on and was then placed back on 6L NC. Pt was educated on importance of wearing Bipap. Pt was encouraged and put Bipap back on at 0200 and took mask back off at 0245 and refused again to put it back on. Pt is currently sitting on side of bed with 6L O2 NC. He has voided per urinal. Pt is NSR on telemetry. VSS. Call light within reach. Safety measures in place.
[2022-06-21 06:25] LABS: Basophils % 0.5 % (0.1-2.0); Eosinophils % 0.1 % (0.1-12.0); Hematocrit 40.3 % (42.0-52.0); Hemoglobin 12.9 g/dL (14.1-18.0); Lymphocytes # 0.2 K/mm3 (0.7-4.5); Lymphocytes % 8.6 % (10-50); Mean Corpuscular HGB Conc 31.9 g/dL (31.8-35.4); Mean Corpuscular Hemoglobin 32.2 pg (27.0-31.2); Mean Corpuscular Volume 100.9 fl (80-94); Monocytes # 0.2 K/mm3 (0.1-1.0); Neutrophils # 2.2 K/mm3 (1.8-7.8); Neutrophils % 84.8 % (37.0-80.0); Platelet Count 121 K/mm3 (142-424); Red Blood Count 3.99 M/mm3 (4.60-6.20); Red Cell Distribution Width 13.6 % (11.5-17.5); White Blood Count 2.6 K/mm3 (4.8-10.8)
[2022-06-21 06:30] LABS: Chloride 87 mmol/L (98-107); Potassium 3.9 mmoL/L (3.5-5.1); Sodium 135 mmol/L (136-145)
[2022-06-21 06:33] LABS: Blood Urea Nitrogen 15 mg/dl (9-20); Creatinine Clearance Estimated 100 mL/min (50-200); Estimated Glomerular Filt Rate 112 ml/min (>60); GFR (African American) 136 ML/MIN (>60); Triglycerides 90 mg/dl (30-150); VLDL Cholesterol 18 mg/dL (0-40)
[2022-06-21 06:34] LABS: Calcium 9.5 mg/dl (8.4-10.2); Cholesterol 140 mg/dl (140-200); Glucose 148 mg/dl (74-100); HDL Cholesterol 35 mg/dl (40-60)
[2022-06-21 06:44] LABS: Direct LDL Cholesterol 63.93 mg/dL (100-129)
[2022-06-21 07:19] LABS: Anion Gap 4.9 mEq/L (5-15); Carbon Dioxide 47 mmol/L (22.0-30.0)
--- NOTE | 2022-06-21 08:34 | EXP.PN ---
Subjective *Date: 06/21/22 *Time: 08:45 Interval history: Nursing states he was restless during the night. He continues with some confusion. He wore his BiPAP until about 3 AM and then has been on a nasal cannula at 4 L/min. O2 sats have been satisfactory. Patient does awaken during exam and denies chest pain and shortness of breath. Platelet count has improved 121,000. White blood cell count remains low at 2.6 with a hemoglobin of 12.9 hematocrit of 40.31. Cholesterol numbers show total cholesterol 140 with an LDL of 63.93 and HDL 35. Triglycerides are only 90. Chest x-ray showed worsening bilateral pneumonia or atelectasis yesterday. Exam Data for Last 24 hours Vital signs and Labs for Last 24 Hours: Temp Pulse Resp BP Pulse Ox FiO2 98.2 F 68 21 130/62 97 40 06/21/22 04:00 06/21/22 06:10 06/21/22 06:00 06/21/22 06:00 06/21/22 06:10 06/21/22 02:32 Laboratory Results - last 24 hr 06/20/22 08:07: Specimen Source Left radial, O2 % 40%, ABG pH 7.32 L, ABG pCO2 73.6 H, ABG pO2 69.1 L, ABG HCO3 37.1 H, ABG Total CO2 39.3 H, ABG O2 Saturation 93, ABG Base Excess 11.0 H, Collin Test Acceptable, Vent Rate 22 06/20/22 08:40: WBC 2.5 L, RBC 3.73 L, Hgb 12.4 L, Hct 39.3 L, MCV 105.3 H, MCH 33.1 H, MCHC 31.5 L, RDW 13.8, Plt Count 106 L, MPV 9.8, Neut % (Auto) 70.6, Lymph % (Auto) 15.6, [place] % (Auto) 12.1 H, Eos % (Auto) 0.8, Baso % (Auto) 0.8, Neut # (Auto) 1.8, Lymph # (Auto) 0.4 L, [place] # (Auto) 0.3, Eos # (Auto) 0.0, Baso # (Auto) 0.0 06/20/22 08:40: Sodium 137, Potassium 3.6, Chloride 91 L, Carbon Dioxide 46 H*, Anion Gap 3.6 L, BUN 12, Creatinine 0.70, Estimated Creat Clear 100, Estimated GFR 112, Est GFR ( Amer) 136, Glucose 91, Calcium 8.9, Total Bilirubin 0.9, AST 21, ALT 18, Alkaline Phosphatase 50, Total Protein 6.3, Albumin 3.4 L, Globulin 2.9, Albumin/Globulin Ratio 1.2 06/20/22 15:59: Specimen Source Right radial, O2 % 40%, ABG pH 7.42, ABG pCO2 73.9 H, ABG pO2 55.0 L, ABG HCO3 46.9 H, ABG Total CO2 49.1 H, ABG O2 Saturation 91, ABG Base Excess 22.4 H, Collin Test Acceptable, Vent Rate 24 06/21/22 05:38: WBC 2.6 L, RBC 3.99 L, Hgb 12.9 L, Hct 40.3 L, MCV 100.9 H, MCH 32.2 H, MCHC 31.9, RDW 13.6, Plt Count 121 L, MPV 9.0, Neut % (Auto) 84.8 H, Lymph % (Auto) 8.6 L, [place] % (Auto) 6.0, Eos % (Auto) 0.1, Baso % (Auto) 0.5, Neut # (Auto) 2.2, Lymph # (Auto) 0.2 L, [place] # (Auto) 0.2, Eos # (Auto) 0.0, Baso # (Auto) 0.0 06/21/22 05:38: Sodium 135 L, Potassium 3.9, Chloride 87 L, Carbon Dioxide 47 H*, Anion Gap 4.9 L, BUN 15, Creatinine 0.70, Estimated Creat Clear 100, Estimated GFR 112, Est GFR ( Amer) 136, Glucose 148 H D, Calcium 9.5, Triglycerides 90, Cholesterol 140, LDL Cholesterol Direct 63.93 L, VLDL Cholesterol 18, HDL Cholesterol 35 L, Cholesterol/HDL Ratio 4.0 H I & O for Last 24 hours: Intake & Output 06/18/22 06/19/22 06/20/22 06/21/22 11:59 11:59 11:59 11:59 Intake Total 1915 / 1915 1165 / 1165 1285 / 1285 1426 / 1426 Output Total 2150 / 2150 900 / 900 1400 / 1400 4800 / 4800 Balance -235 / -235 265 / 265 -115 / -115 -3374 / -3374 Weight 217 lb 5 oz 219 lb 1 oz 220 lb 3 oz 220 lb 3.2 oz Constitutional Constitutional: no acute distress *Routine Respiratory Exam Respiratory: Present crackles *Routine Cardiovascular Exam Cardiovascular: Present RRR (Sinus rhythm) *Routine Abdominal Exam Abdominal: Present soft and normoactive bowel sounds; Absent tenderness or distended *Routine Extremities Exam Extremities: Absent edema or calf tenderness *Routine Neurological Exam Neurological: Present alert and oriented X3 Assessment and Plan *Assessment and plan (1) Acute on chronic respiratory failure with hypoxia and hypercapnia: Status: Acute Category: Medical Code(s): J96.21 - Acute and chronic respiratory failure with hypoxia; J96.22 - Acute and chronic respiratory failure with hypercapnia (2) Influenza A: Status: Acute Category: Medical Code(s): J10.1 - Influe
--- NOTE | 2022-06-21 10:09 | EXP.PULM.PN ---
Subjective *Date: 06/21/22 *Time: 14:00 Interval history: No acute respiratory vents overnight. Patient admits continued improvement in his symptoms. Pulmonology Exam Inpatient Vital signs and Labs for Last 24 Hours: Temp Pulse Resp BP Pulse Ox FiO2 98.3 F 76 22 172/97 H 93 L 40 06/21/22 08:00 06/21/22 09:58 06/21/22 08:45 06/21/22 08:45 06/21/22 09:58 06/21/22 02:32 Laboratory Results - last 24 hr 06/20/22 15:59: Specimen Source Right radial, O2 % 40%, ABG pH 7.42, ABG pCO2 73.9 H, ABG pO2 55.0 L, ABG HCO3 46.9 H, ABG Total CO2 49.1 H, ABG O2 Saturation 91, ABG Base Excess 22.4 H, Collin Test Acceptable, Vent Rate 24 06/21/22 05:38: WBC 2.6 L, RBC 3.99 L, Hgb 12.9 L, Hct 40.3 L, MCV 100.9 H, MCH 32.2 H, MCHC 31.9, RDW 13.6, Plt Count 121 L, MPV 9.0, Neut % (Auto) 84.8 H, Lymph % (Auto) 8.6 L, [place] % (Auto) 6.0, Eos % (Auto) 0.1, Baso % (Auto) 0.5, Neut # (Auto) 2.2, Lymph # (Auto) 0.2 L, [place] # (Auto) 0.2, Eos # (Auto) 0.0, Baso # (Auto) 0.0 06/21/22 05:38: Sodium 135 L, Potassium 3.9, Chloride 87 L, Carbon Dioxide 47 H*, Anion Gap 4.9 L, BUN 15, Creatinine 0.70, Estimated Creat Clear 100, Estimated GFR 112, Est GFR ( Amer) 136, Glucose 148 H D, Calcium 9.5, Triglycerides 90, Cholesterol 140, LDL Cholesterol Direct 63.93 L, VLDL Cholesterol 18, HDL Cholesterol 35 L, Cholesterol/HDL Ratio 4.0 H I & O for Labs for Last 24 Hours: Intake & Output 06/18/22 06/19/22 06/20/22 06/21/22 23:59 23:59 23:59 23:59 Intake Total 1750 / 1750 1465 / 1465 760 / 860 726 / 726 Output Total 2450 / 2450 700 / 700 4850 / 4850 1050 / 1050 Balance -700 / -700 765 / 765 -4090 / -3990 -324 / -324 Weight 217 lb 5 oz 219 lb 1 oz 220 lb 3 oz 220 lb 3.2 oz Constitutional: Present mild distress Head: Present normocephalic and atraumatic ENT: Present normal exam, normal oropharynx and mucous membranes moist Neck: Present normal inspection and full ROM Respiratory: Present wheezes and able to speak in complete sentences; Absent respiratory distress or diminished air movement Cardiac: Present S1/S2, Tachycardia and radial pulses present GI: Present soft and distention; Absent tenderness or guarding Skin: Present intact; Absent cyanosis or jaundice Neuro: Present alert, awake and oriented x 3 Extremities: Present normal inspection; Absent clubbing or cyanosis Psychiatric: Present normal affect and cooperative Assessment and Plan *Assessment and plan (1) Acute on chronic respiratory failure with hypoxia and hypercapnia: Status: Acute Category: Medical Code(s): J96.21 - Acute and chronic respiratory failure with hypoxia; J96.22 - Acute and chronic respiratory failure with hypercapnia (2) Influenza A: Status: Acute Category: Medical Code(s): J10.1 - Influenza due to other identified influenza virus with other respiratory manifestations (3) HAP (hospital-acquired pneumonia): Status: Acute Category: Medical Code(s): J18.9 - Pneumonia, unspecified organism; Y95 - Nosocomial condition Plan #Acute hypoxic respiratory failure: #Influenza pneumonia: #HAP: Mr. Medeiros 66-year-old male history of COPD, pulmonary nodule lymphadenopathy status post EBUS FNA suggestive adenocarcinoma lung following with Dr. Puente, Melanoma history presented to the hospital on 06/13/22 complaining of progressively worsening shortness of breath needing high flow oxygen supplement since admission admission receiving Tamiflu since with progressive worsening respiratory distress and worsening oxygen requirements, initiated on ertapenem this morning and pulmonary was consulted for further evaluation. WBC relatively stable since admission. Echocardiogram from this admission technically poor, EF at 55% diastolic parameters inconclusive. CTA no evidence of pulmonary embolism, bilateral lower lobe infiltrates along with dense lower lobe consolidation. Patient had waxing and waning respiratory status over the weekend needing inter
--- NOTE | 2022-06-21 19:27 | PC.NURSE ---
Pt alert and oriented this shift. RR even and unlabored at this time. VSS. SA on tele. Remains on 4 L NC. NAD. Bed alarm in use r/t safety.
[2022-06-22] VITALS (7 sets, daily range): BP systolic 113–135; BP diastolic 57–78; PULSE 57–94; RESP 18–20; TEMP 36.4–36.6; O2SAT 85–99; BMI 34.2
--- NOTE | 2022-06-22 05:39 | PC.NURSE ---
pt was restless through the night and was up and down from side of bed, pt urinated in floor at one point and stated he had to go, pt is alert and oriented x4 when asked orientation questions, however pt has asked staff a few times where he is at, bed alarm in place, VSS, telemetry remains sinus to sinus arrhythmia, mild edema 1+, lung sounds diminished with wheezes heard throughout, 02 sats 93-98% on 4L pnc, no acute distress noted, no other issues or concerns at this time.
--- NOTE | 2022-06-22 07:47 | EXP.ACUTE.PN ---
Subjective *Date: 06/22/22 *Time: 08:06 Interval history: Patient feels much better today. He was weaned down to 3 L of oxygen per NC. He ate well yesterday, anxious to go home. Medical Exam Vital signs and Labs for Last 24 Hours: Vital Signs Temp Pulse Pulse Resp BP Pulse Ox 06/22/22 06:00 92 L 06/22/22 06:00 57 L 06/22/22 06:00 64 06/22/22 06:00 97 06/22/22 04:00 60 06/22/22 04:00 97.9 F 70 20 118/78 99 06/22/22 02:17 74 06/22/22 02:17 74 06/21/22 20:00 90 06/22/22 00:00 65 06/22/22 00:00 94 L 06/21/22 20:00 65 94 L 06/22/22 00:00 97.8 F 71 19 135/57 L 94 L 06/21/22 21:49 72 06/21/22 21:49 72 06/21/22 20:00 97.9 F 80 18 116/65 93 L 06/21/22 18:00 98.2 F 75 20 125/79 93 L 06/21/22 16:00 70 06/21/22 18:03 73 06/21/22 18:03 74 06/21/22 18:03 94 L 06/21/22 12:00 82 06/21/22 08:00 60 06/21/22 16:00 98.2 F 75 20 125/79 93 L 06/21/22 13:35 80 06/21/22 13:35 83 06/21/22 13:35 93 L 06/21/22 12:00 86 20 126/97 H 91 L 06/21/22 10:00 98 H 20 124/65 96 06/21/22 08:00 94 L 06/21/22 09:58 76 06/21/22 09:58 71 06/21/22 09:58 93 L 06/21/22 08:45 80 22 172/97 H 95 06/21/22 08:00 98.3 F Intake and Output 06/21/22 06/21/22 06/22/22 15:59 23:59 07:59 Intake Total 360 / 1326 240 / 1326 1196 / 1196 Output Total 700 / 3225 1475 / 3225 250 / 250 Balance -340 / -1899 -1235 / -1899 946 / 946 Intake: Intake, Oral Amount 360 / 700 240 / 700 Intake, Total IV Amount 1196 / 1196 Cefepime HCl 2 gm In 0.9 % 200 / 200 Sodium Chloride 100 ml @ 200 mls/hr IV Q8H TITO Rx#:[id number] D5W/0.45% NaCl w/20mEq KCL 1, 996 / 996 000 ml @ 75 mls/hr IV .[id number] TITO Rx#:[id number] Output: Output, Urine Amount 700 / 3225 1475 / 3225 250 / 250 Other: Number of Voids 0 1 Number of Unmeasured Voids 0 1 Weight 226 lb 3.2 oz Patient Weight 06/22/22 23:59 Weight 226 lb 3.2 oz I & O for Labs for Last 24 Hours: Intake & Output 06/19/22 06/20/22 06/21/22 06/22/22 23:59 23:59 23:59 23:59 Intake Total 1465 / 1465 760 / 860 1326 / 1326 1196 / 1196 Output Total 700 / 700 4850 / 4850 3225 / 3225 250 / 250 Balance 765 / 765 -4090 / -3990 -1899 / -1899 946 / 946 Weight 219 lb 1 oz 220 lb 3 oz 220 lb 3.2 oz 226 lb 3.2 oz Microbiology Reports for the Last 24 Hours: Microbiology 06/17/22 16:18 Sputum - Expectorated Sputum Gram Stain - Final Constitutional: Present no acute distress Comment:: Sitting in chair now Respiratory: Present decreased breath sounds (better air movement today) and rhonchi (few) Cardiac: Present Reg Rate and Rhythm GI: Present soft; Absent distention or tenderness Extremities: Present edema; Absent tenderness Assessment and Plan *Assessment and plan (1) Acute on chronic respiratory failure with hypoxia and hypercapnia: Status: Acute Category: Medical Code(s): J96.21 - Acute and chronic respiratory failure with hypoxia; J96.22 - Acute and chronic respiratory failure with hypercapnia (2) Influenza A: Status: Acute Category: Medical Code(s): J10.1 - Influenza due to other identified influenza virus with other respiratory manifestations (3) HAP (hospital-acquired pneumonia): Status: Acute Category: Medical Code(s): J18.9 - Pneumonia, unspecified organism; Y95 - Nosocomial condition (4) Restlessness and agitation: Status: Acute Category: Medical Code(s): R45.1 - Restlessness and agitation (5) History of ASCVD: Status: Chronic Category: Medical Code(s): Z86.79 - Personal history of other diseases of the circulatory system Plan Patient has improved. OK to discharge home today with continuous NC oxygen at 3 L/min and
--- NOTE | 2022-06-22 09:17 | HMH.OTEV ---
OT Inpatient Evaluation Rehab OT IP Evaluation Start: 06/22/22 08:02 Freq: ONCE Status: Complete Protocol: Document 06/22/22 09:11 [facility] (Rec: 06/22/22 09:17 [facility] [id number]) Rehab OT IP Assessment Subjective History Pt oriented x 3 on arrival. Pt agreeable to engage in therapy evaluation. Pt was admitted on 06/13/22 due to shortness of breath due to Flu +. Prior to being in the hosptial, pt lived at home with his . He was independent with all ADLs and IADLs. He did not use any type of AE during transfers. Pt was still driving. Pt has a past medical history of severe COPD, Melanoma, Gout , DVT, ,AAA. HTN, HLP, ASCVD, TOBACCO ADDICTION, and stage 111 lung cancer. Subjective I am ready to go home now. Objective Patient Orientation Person,Place,Birthday Upper Extremity Gross ROM WFL Bed Mobility bed mobility-scooting,bed mobility - supine/sit,bed mobility - rolling Assist Level Supervision/Stand by Transfer Training Sit/Stand Transfer Assist Level Supervision/Stand by Chair Transfer Ability Supervision/Stand by Chair Transfer Technique Sit to/from Ambulatory Chair Transfer Assistive Devices None Lower Body Dressing Ability Standby Assistance Rehab OT IP prob,goals,plan Problems Date of Evaluation: 06/22/22 Rehab Potential Rehab Potential Innapropriate for Skilled Therapy Discharge Plan OT Discharge Plan At this time, pt appears to be close to his baseline with functional transfers and ADL independence. Pt can return home with once medically stable per physician. Home health evaluation for OT would be beneficial to make sure he is safe in his home environment. Thank you for involving OT services with patient's plan of care. Eval Complexity Eval Charge Codes 94473 - Moderate Complexity G Codes G -code Required
--- NOTE | 2022-06-22 09:43 | EXP.PULM.PN ---
Subjective *Date: 06/22/22 *Time: 10:40 Interval history: No acute respiratory vents overnight. Continued to have mild respiratory distress, admits improving symptoms. Pulmonology Exam Inpatient Vital signs and Labs for Last 24 Hours: Temp Pulse Resp BP Pulse Ox FiO2 97.9 F 57 L 20 118/78 85 L 40 06/22/22 04:00 06/22/22 06:00 06/22/22 04:00 06/22/22 04:00 06/22/22 09:31 06/21/22 02:32 I & O for Labs for Last 24 Hours: Intake & Output 06/19/22 06/20/22 06/21/22 06/22/22 23:59 23:59 23:59 23:59 Intake Total 1465 / 1465 760 / 860 1326 / 1326 1436 / 1436 Output Total 700 / 700 4850 / 4850 3225 / 3225 250 / 250 Balance 765 / 765 -4090 / -3990 -1899 / -1899 1186 / 1186 Weight 219 lb 1 oz 220 lb 3 oz 220 lb 3.2 oz 226 lb 3.2 oz Microbiology Reports for the Last 24 Hours: Microbiology 06/17/22 16:18 Sputum - Expectorated Sputum Gram Stain - Final Constitutional: Present mild distress Head: Present normocephalic and atraumatic ENT: Present normal exam, normal oropharynx and mucous membranes moist Neck: Present normal inspection and full ROM Respiratory: Present wheezes and able to speak in complete sentences; Absent respiratory distress or diminished air movement Cardiac: Present S1/S2, Tachycardia and radial pulses present GI: Present soft and distention; Absent tenderness or guarding Skin: Present intact; Absent cyanosis or jaundice Neuro: Present alert, awake and oriented x 3 Extremities: Present normal inspection; Absent clubbing or cyanosis Psychiatric: Present normal affect and cooperative Assessment and Plan *Assessment and plan (1) Acute on chronic respiratory failure with hypoxia and hypercapnia: Status: Acute Category: Medical Code(s): J96.21 - Acute and chronic respiratory failure with hypoxia; J96.22 - Acute and chronic respiratory failure with hypercapnia (2) Influenza A: Status: Acute Category: Medical Code(s): J10.1 - Influenza due to other identified influenza virus with other respiratory manifestations (3) HAP (hospital-acquired pneumonia): Status: Acute Category: Medical Code(s): J18.9 - Pneumonia, unspecified organism; Y95 - Nosocomial condition Plan #Acute hypoxic respiratory failure: #Influenza pneumonia: #HAP: Mr. Medeiros 66-year-old male history of COPD, pulmonary nodule lymphadenopathy status post EBUS FNA suggestive adenocarcinoma lung following with Dr. Puente, Melanoma history presented to the hospital on 06/13/22 complaining of progressively worsening shortness of breath needing high flow oxygen supplement since admission admission receiving Tamiflu since with progressive worsening respiratory distress and worsening oxygen requirements, initiated on ertapenem this morning and pulmonary was consulted for further evaluation. WBC relatively stable since admission. Echocardiogram from this admission technically poor, EF at 55% diastolic parameters inconclusive. CTA no evidence of pulmonary embolism, bilateral lower lobe infiltrates along with dense lower lobe consolidation. Patient had waxing and waning respiratory status over the weekend needing intermittent BiPAP. Eventually initiated methylprednisolone along with BiPAP that improved his blood gas and mentation. Chest x-ray from 06/20 worsening bilateral lower lobe infiltrates. Continue to receive cefepime. Also been diuresed. Interval update: No acute respiratory events overnight. currently remains respiratory respiratory status stable on 3 to 4 L nasal cannula with saturations maintained at 92% and above. Plan: -Can be discharged home inhaler therapy (Trelegy) along with DuoNebs every 6 hours on as-needed basis. -Wean cefepime to levofloxacin 750 mg oral daily to complete a total 7-day course. Will methylprednisolone to prednisone 40 mg daily for 5 more days. We will follow the patient in pulmonary clinic in 1 to 2 weeks post discharge. #Thank you involving pulmonary in
--- NOTE | 2022-06-22 09:58 | CARE MANAGER ---
Patient's RA oxygen saturation is 85% at rest.
--- NOTE | 2022-06-22 10:17 | CARE MANAGER ---
Addendum entered by Angela Bedoya RN 06/22/22 11:54: Patient has been accepted for services by [facility], plan to start on , 06/23. Original Note: Patient will require 3L continuous home oxygen, and HH services upon discharge. Patient Choice signed for [facility] and [facility]. Clinical/orgers faxed. O2 portable will be delivered prior to discharge.
--- NOTE | 2022-06-22 10:18 | HMH.PTEV ---
Physical Therapy Evaluation Rehab PT IP Evaluation Start: 06/22/22 08:00 Freq: ONCE Status: Active Protocol: Document 06/22/22 08:50 MISSY (Rec: 06/22/22 10:17 [id number]) Subjective/History History History 66 yowm adm to [facility] with NSTEMI and flu+. He required Bi-PAP for resp failure. He is now much improved and saturating well on NC at 3L/min. He reports he lives with , 1- 2 steps to enter the home and he was generally independent with all mobility prior to adm . Subjective Subjective Pt with no c/o this am, eager to return home. Rehab PT IP Eval Objective Appearance Patient Behavior Appropriate Patient Orientation Person,Place,Time Difficulty following instructions none Speech Pattern Clear Ambulation Patient Able to Ambulate Yes Ambulation Observation IP General Gait Pattern Observation No Deviations/Normal Ambulation Distance (feet) 30 Ambulation Assistive Device None Ambulation Ability Supervision/Stand by Balance Ability to Arise Able, w/o using arms Sitting Balance Steady, safe Standing Balance Steady, wide stance Dynamic Sitting Balance Ability Good Dynamic Standing Balance Ability Fair Transfers Bed Transfer Ability Supervision/Stand by Chair Transfer Ability Supervision/Stand by Sit to Stand Bed Transfer Ability Supervision/Stand by Sit to Stand Chair Transfer Ability Supervision/Stand by ROM All Extremities PT ROM Status WFL MMT All Extremities PT MMT WFL Rehab PT IP prob,goals,plan Problems Date of Evaluation: 06/22/22 Discharge Plan PT Discharge Plan Pt appears to be returned to baseline for all mobility this am. He is appropriate to return home once medically stable. Recommend Home Health therapy upon D/C. G -code Required No Eval Complexity Eval Charge Codes 39725 - Moderate Complexity PHYSICIAN CERTIFICATION: I certify the specified therapy services for Delonte Medeiros are required, authorized, and reviewed every 30 days.
--- NOTE | 2022-06-22 10:38 | PC.NURSE ---
reported pulmonology recommendations to dr cao for 750mg levaquin po daily for [address] [facility]
--- NOTE | 2022-06-22 11:14 | PC.NURSE ---
dc instructions went over with pt and . pt waiting on ride
--- NOTE | 2022-06-23 11:12 | CARE MANAGER ---
Attempted post-discharge phone interview, no answer.
--- NOTE | 2022-06-27 23:38 | EXP.DC.SUM ---
General Admission date:: 06/13/22 Discharge date: 06/22/22 HPI HPI HPI: Mr. Medeiros is a 66 year old male with an extensive medical history to include severe COPD, Melanoma, Gout, DVT, ,AAA. HTN, HLP, ASCVD,TOBACCO ADDICTION, and stage [address] Puente who presented to [facility] ER for progressive SOB.? He states he received his Flu shot about 1 week ago and has not felt well since. He has had a fever and cough which is sometimes productive.? He has been able to eat and drink although he has experienced some diarrhea. With evaluation in the ER he was febrile and noted to be + for Flu A; WBCs are 3.9.? O2 sats are 90% on O2 at 4 LPM; Lactic was normal and TI was elevated at 0.72; CXR revealed NO acute CP process; He recieved 125mg of SM IV and Duoneb,? He is to be admitted.? Hospital Course Hospital Course Hospital Course: The patient was started on Tamiflu, DuoNebs, and oxygen. Cardiology was consulted due to elevated troponins in the setting of coronary artery disease. They felt he had a type II non-ST elevation FL in the setting of influenza and lung cancer. They ordered an echo, but wanted to treat conservatively and once respiratory status improved, they would consider repeating a stress test. His echo showed a normal EF with no wall motion abnormalities and they wanted to follow-up with the patient in their office once he was discharged. The patient's respiratory status worsened and he had to be placed on BiPAP due to an elevated PCO2 on ABG. A rapid response was called on the patient on 06/16/2022 and the hospitalist responded. He was in atrial fibrillation with a rate in the 150s on the monitor. His blood pressure was reading in the 90s systolic. He was started on a bolus of fluid and given p.o. Cardizem initially. Cardiology was called and ordered amiodarone, heparin, and Rayshawn-Synephrine. He was moved to a stepdown room. According to the cardiology note on 06/16/2022, the patient had removed his oxygen with subsequent significant drop in his oxygen into the 50s with a change in his rhythm to atrial fib with a rapid ventricular response thereafter. His heart rate continued to be in the 120 to 140 bpm range after the amiodarone, heparin, and Rayshawn-Synephrine. He did have to be started on Vapotherm at 40 L/min with oxygen saturations in the 99% range. Cardiology was going to cardiovert the patient, but he spontaneously converted back to normal sinus rhythm. They wanted him continued on amiodarone loading along with IV heparin and felt he could start oral amiodarone 400 mg twice daily the next day prior to conclusion of the IV amiodarone loading. The patient remained in sinus sinus rhythm. He began complaining of some lower abdominal pain and continued to remain short of breath. He did have blood in his catheter and it was removed. Anticoagulation was discontinued due to his hematuria. A UA was done and showed a UTI. He was started on Invanz. Chest x-ray showed no acute process, but attempting to wean his high flow oxygen was unsuccessful. Pulmonology was therefore consulted. Pulmonology wanted to continue DuoNebs every 4 hours scheduled along with budesonide every 12 hours. Repeat ABG showed worsening hypercarbic respiratory failure. He was initiated back on BiPAP therapy. His antibiotics were changed to cefepime and a CT PE was ordered. His CO2 did decline on BiPAP. The BiPAP mask made him very restless and he had to have some doses of Ativan to calm him. His CTA showed no PE. He continued to remain restless with the BiPAP machine and Haldol IV was added. Pulmonary saw the patient and initiated him on methylprednisolone 60 mg IV daily and gave him a one-time dose of 40 mg of IV Lasix on 06/20/2022. Cardiology continued to follow the patient until 06/20/2022. Their recommendation was that he would need to remain on the amiodarone 40 mg twice daily for 2 weeks and then start titrating down the dose to a goal of 200 mg daily
== END 2022-06-22 11:35 | disposition home or self-care (01) | DRG 193 ==
LOC: ER 14:28 → 2ND 14:44
PROVIDERS: Emergency Medicine; Internal Medicine Pulmonary Disease; Nurse Practitioner Family; Admitting Provider Family Medicine; Emergency Provider Emergency Medicine; PCP Family Medicine; Visit Provider Family Medicine
DX: I21.A1 Myocardial infarction type 2 (principal); J10.1 Influenza due to other identified influenza virus with other respiratory manifestations; J96.21 Acute and chronic respiratory failure with hypoxia; J96.22 Acute and chronic respiratory failure with hypercapnia; J44.1 Chronic obstructive pulmonary disease with (acute) exacerbation; C34.11 Malignant neoplasm of upper lobe, right bronchus or lung; N39.0 Urinary tract infection, site not specified; J18.9 Pneumonia, unspecified organism; F17.210 Nicotine dependence, cigarettes, uncomplicated; Z95.0 Presence of cardiac pacemaker; I10 Essential (primary) hypertension; I65.23 Occlusion and stenosis of bilateral carotid arteries; E03.9 Hypothyroidism, unspecified; Z79.899 Other long term (current) drug therapy; Z85.820 Personal history of malignant melanoma of skin; M10.9 Gout, unspecified; Z86.718 Personal history of other venous thrombosis and embolism; I25.10 Atherosclerotic heart disease of native coronary artery without angina pectoris; I11.0 Hypertensive heart disease with heart failure; I25.2 Old myocardial infarction; J44.9 Chronic obstructive pulmonary disease, unspecified; Z99.81 Dependence on supplemental oxygen; Y95 Nosocomial condition
CPT/HCPCS: 36415; 71045; 71275; 80048; 80053; 80061; 81001; 82803; 83605; 83880; 84484; 85025; 85730; 87040; 87070; 87086; 87205; 93005; 93306; 94640; 94660; 94760; 94761; 97162; 97166; 99285; C9803; J0282; J1335; J7060; Q9967; U0003; U0005

== ENCOUNTER 2022-06-30 09:25 | Outpatient (CLI) | payer MEDICARE, MEDICAID, SELFPAY ==
[2022-06-30 09:30] VITALS: BMI 33.1
[2022-06-30 10:10] LABS: Basophils % 0.4 % (0.1-2.0); Eosinophils % 0.7 % (0.1-12.0); Hematocrit 43.5 % (42.0-52.0); Hemoglobin 13.8 g/dL (14.1-18.0); Lymphocytes # 0.8 K/mm3 (0.7-4.5); Lymphocytes % 12.8 % (10-50); Mean Corpuscular HGB Conc 31.8 g/dL (31.8-35.4); Mean Corpuscular Hemoglobin 32.8 pg (27.0-31.2); Mean Corpuscular Volume 103.1 fl (80-94); Monocytes # 0.7 K/mm3 (0.1-1.0); Monocytes % 11.1 % (1.7-9.3); Neutrophils # 4.4 K/mm3 (1.8-7.8); Neutrophils % 74.9 % (37.0-80.0); Platelet Count 141 K/mm3 (142-424); Red Blood Count 4.22 M/mm3 (4.60-6.20); Red Cell Distribution Width 14.1 % (11.5-17.5); White Blood Count 5.9 K/mm3 (4.8-10.8)
[2022-06-30 10:19] LABS: Chloride 94 mmol/L (98-107); Potassium 4.3 mmoL/L (3.5-5.1); Sodium 136 mmol/L (136-145)
[2022-06-30 10:22] LABS: Alanine Aminotransferase 27 U/L (12-78); Albumin Level 3.8 g/dl (3.5-5.0); Albumin/Globulin Ratio 1.5 (1.1-1.8); Alkaline Phosphatase 69 U/L (38-126); Anion Gap 7.3 mEq/L (5-15); Aspartate Amino Transferase 24 U/L (17-59); Bilirubin,Total 0.9 mg/dl (0.2-1.3); Blood Urea Nitrogen 13 mg/dl (9-20); Carbon Dioxide 39 mmol/L (22.0-30.0); Creatinine Clearance Estimated 99 mL/min (50-200); Estimated Glomerular Filt Rate 74 ml/min (>60); GFR (African American) 90 ML/MIN (>60); Globulin 2.6 g/dL (1.3-3.2); Total Protein,Serum 6.4 g/dl (6.3-8.2)
[2022-06-30 10:23] LABS: Calcium 9.4 mg/dl (8.4-10.2); Glucose 97 mg/dl (74-100)
[2022-06-30 11:50] VITALS: BP 111/54; PULSE 60; RESP 20; TEMP 36.6; O2SAT 98
[2022-06-30 12:20] VITALS: BP 109/59; PULSE 62; RESP 20; O2SAT 98
[2022-06-30 13:00] VITALS: BP 116/63; PULSE 64; RESP 18; O2SAT 98
[2022-07-01 13:15] LABS: Adrenocorticotropic Hormone 18.4 pg/mL (7.2-63.3)
== END 2022-06-30 13:00 | disposition home or self-care (01) ==
LOC: INF 09:26
PROVIDERS: PCP Family Medicine; Visit Provider Internal Medicine Medical Oncology
DX: Z51.11 Encounter for antineoplastic chemotherapy (principal); C34.11 Malignant neoplasm of upper lobe, right bronchus or lung; Z79.899 Other long term (current) drug therapy
CPT/HCPCS: 80053; 82024; 82533; 84443; 85025; 96413; J9173

== ENCOUNTER → 2022-07-05 08:18 | Outpatient (CLI) | payer MEDICARE, MEDICAID, SELFPAY ==
--- NOTE | 2022-07-05 08:25 | US_ITS ---
FINAL REPORT CLINICAL HISTORY: AAA WITHOUT RUPTURE COMPARISON: CT dated 12/20/2021 FINDINGS: ABDOMINAL AORTA ANEURYSM (AAA) SCREENING Sonographic images of the abdominal aorta were obtained. There is a 3.8 cm abdominal aortic aneurysm, stable since prior CT dated 12/20/2021. IMPRESSION: Stable abdominal aortic aneurysm. Reviewed, Interpreted and Dictated by Noel Yi III, MD Transcribed by Chela Georges Authenticated and [facility]
== END ==
PROVIDERS: PCP Family Medicine; Visit Provider Internal Medicine Cardiovascular Disease
DX: I71.40 Abdominal aortic aneurysm, without rupture, unspecified (principal)
CPT/HCPCS: 76770

== ENCOUNTER 2022-07-28 08:22 | Outpatient (CLI) | payer MEDICARE, MEDICAID, SELFPAY ==
[2022-07-28 08:31] VITALS: BMI 33.3
[2022-07-28 08:55] LABS: Basophils # 0.1 K/mm3 (0-0.2); Basophils % 0.8 % (0.1-2.0); Eosinophils # 0.1 K/mm3 (0.0-0.4); Hematocrit 44.1 % (42.0-52.0); Hemoglobin 13.6 g/dL (14.1-18.0); Lymphocytes # 1.1 K/mm3 (0.7-4.5); Lymphocytes % 18.2 % (10-50); Mean Corpuscular HGB Conc 30.8 g/dL (31.8-35.4); Mean Corpuscular Hemoglobin 31.9 pg (27.0-31.2); Mean Corpuscular Volume 103.4 fl (80-94); Mean Platelet Volume 9.4 fl (7.4-10.4); Monocytes # 0.6 K/mm3 (0.1-1.0); Monocytes % 10.1 % (1.7-9.3); Neutrophils # 4.1 K/mm3 (1.8-7.8); Neutrophils % 69.8 % (37.0-80.0); Platelet Count 164 K/mm3 (142-424); Red Blood Count 4.27 M/mm3 (4.60-6.20); Red Cell Distribution Width 14.3 % (11.5-17.5); White Blood Count 5.8 K/mm3 (4.8-10.8)
[2022-07-28 08:57] LABS: Chloride 98 mmol/L (98-107); Potassium 4.2 mmoL/L (3.5-5.1); Sodium 138 mmol/L (136-145)
[2022-07-28 08:59] LABS: Alanine Aminotransferase 16 U/L (12-78); Blood Urea Nitrogen 15 mg/dl (9-20); Creatinine Clearance Estimated 99 mL/min (50-200); Estimated Glomerular Filt Rate 84 ml/min (>60); GFR (African American) 102 ML/MIN (>60)
[2022-07-28 09:00] LABS: Albumin Level 4.3 g/dl (3.5-5.0); Albumin/Globulin Ratio 1.3 (1.1-1.8); Alkaline Phosphatase 81 U/L (38-126); Anion Gap 12.2 mEq/L (5-15); Aspartate Amino Transferase 24 U/L (17-59); Bilirubin,Total 0.7 mg/dl (0.2-1.3); Calcium 8.9 mg/dl (8.4-10.2); Carbon Dioxide 32 mmol/L (22.0-30.0); Globulin 3.3 g/dL (1.3-3.2); Glucose 110 mg/dl (74-100); Total Protein,Serum 7.6 g/dl (6.3-8.2)
[2022-07-28 10:15] VITALS: BP 108/69; PULSE 66; RESP 20; TEMP 36.7; O2SAT 92
[2022-07-28 11:25] VITALS: BP 104/61; PULSE 65; RESP 20; O2SAT 94
[2022-07-29 16:33] LABS: Adrenocorticotropic Hormone 31.9 pg/mL (7.2-63.3)
== END 2022-07-28 11:25 | disposition home or self-care (01) ==
LOC: INF 08:24
PROVIDERS: PCP Family Medicine; Visit Provider Internal Medicine Medical Oncology
DX: Z51.11 Encounter for antineoplastic chemotherapy (principal); C34.90 Malignant neoplasm of unspecified part of unspecified bronchus or lung; Z79.899 Other long term (current) drug therapy
CPT/HCPCS: 80053; 82024; 82533; 84443; 85025; 96413; J9173

== ENCOUNTER → 2022-08-09 12:47 | Outpatient (CLI) | payer MEDICARE, MEDICAID, SELFPAY ==
--- NOTE | 2022-08-09 12:50 | US_ITS ---
PROCEDURE INFORMATION: Exam: US Left Breast, Complete Exam date and time: 08/09/2022 1:11 PM Age: 66 years old Clinical indication: Nipple discharge; Left; Additional info: Lt nipple dicharge -- reddened x 3 wks ago-- area still draining TECHNIQUE: Imaging protocol: Complete ultrasound of all four quadrants of the Left breast and the retroareolar regions, including ultrasound of the axilla when performed. COMPARISON: Non FINDINGS: Breast: Sonographic images of the left breast demonstrates a hypoechoic mass in the immediate left retroareolar region possibly reflecting an abscess in the right clinical setting. The area of interest measures 2.1 x 2.1 x 0.8 cm in dimension. No axillary adenopathy. Comparison sonographic images of the right retroareolar region demonstrates what is likely an island of benign fibroglandular structures consistent with benign gynecomastia. IMPRESSION: Patient to return for a diagnostic bilateral mammogram for full evaluation of a questionable left retroareolar mass as well as probable right retroareolar gynecomastia. ASSESSMENT: BI-RADS Category 0: Incomplete- Need Additional Imaging Evaluation and/or Prior Mammograms for Comparison
== END ==
PROVIDERS: PCP Family Medicine; Visit Provider Internal Medicine Medical Oncology
DX: N64.52 Nipple discharge (principal)
CPT/HCPCS: 76641

== ENCOUNTER 2022-08-25 08:24 | Outpatient (CLI) | payer MEDICARE, MEDICAID, SELFPAY ==
[2022-08-25 08:29] VITALS: BMI 32.8
[2022-08-25 08:52] LABS: Basophils % 0.8 % (0.1-2.0); Eosinophils # 0.2 K/mm3 (0.0-0.4); Eosinophils % 4.6 % (0.1-12.0); Hematocrit 40.1 % (42.0-52.0); Hemoglobin 13.1 g/dL (14.1-18.0); Lymphocytes # 1.2 K/mm3 (0.7-4.5); Lymphocytes % 28.3 % (10-50); Mean Corpuscular HGB Conc 32.6 g/dL (31.8-35.4); Mean Corpuscular Hemoglobin 32.3 pg (27.0-31.2); Mean Platelet Volume 10.3 fl (7.4-10.4); Monocytes # 0.4 K/mm3 (0.1-1.0); Neutrophils # 2.4 K/mm3 (1.8-7.8); Neutrophils % 56.2 % (37.0-80.0); Platelet Count 160 K/mm3 (142-424); Red Blood Count 4.05 M/mm3 (4.60-6.20); Red Cell Distribution Width 13.8 % (11.5-17.5); White Blood Count 4.2 K/mm3 (4.8-10.8)
[2022-08-25 09:02] LABS: Alanine Aminotransferase 14 U/L (12-78); Albumin Level 4.2 g/dl (3.5-5.0); Albumin/Globulin Ratio 1.3 (1.1-1.8); Alkaline Phosphatase 66 U/L (38-126); Aspartate Amino Transferase 24 U/L (17-59); Bilirubin,Total 0.7 mg/dl (0.2-1.3); Blood Urea Nitrogen 13 mg/dl (9-20); Calcium 8.9 mg/dl (8.4-10.2); Carbon Dioxide 31 mmol/L (22.0-30.0); Chloride 101 mmol/L (98-107); Creatinine Clearance Estimated 98 mL/min (50-200); Estimated Glomerular Filt Rate 74 ml/min (>60); GFR (African American) 90 ML/MIN (>60); Globulin 3.2 g/dL (1.3-3.2); Glucose 134 mg/dl (74-100); Sodium 139 mmol/L (136-145); Total Protein,Serum 7.4 g/dl (6.3-8.2)
[2022-08-25 10:13] VITALS: BP 130/58; PULSE 66; RESP 18; TEMP 36.4; O2SAT 97
[2022-08-25 10:43] VITALS: BP 124/62; PULSE 63; RESP 18; O2SAT 96
[2022-08-25 11:20] VITALS: BP 121/69; PULSE 68; RESP 18; O2SAT 97
--- NOTE | 2022-08-25 11:33 | MM_ITS ---
PROCEDURE INFORMATION: Exam: MG Bilateral Diagnostic Breast Tomosynthesis Exam date and time: 08/25/2022 11:35 AM Age: 66 years old Clinical indication: Recall the basis of mammography 08/09/2022 for sonographic evaluation of questionable left retroareolar mass and probable right retroareolar gynecomastia, in this male patient. TECHNIQUE: Imaging protocol: Bilateral Diagnostic tomosynthesis and 2D mammography including computer-aided detection (CAD) when performed. Unilateral or bilateral exam. COMPARISON: 1. US BREAST LT COMPLETE 08/09/2022 1:11 PM [address] PT PET CT Skull Base to Midthigh 09/20/2021 12:31 PM FINDINGS: MAMMOGRAPHY: Breast composition: The breasts are heterogeneously dense, which may obscure small masses. Prominent retroareolar flame shaped opacities, slightly more prominent on the right than left, compatible with gynecomastia. Mass: None. Architectural distortion: None. Calcifications: No suspicious calcifications. Asymmetric density: None. Skin thickening: None. Axillary adenopathy: None. IMPRESSION: Findings compatible with prominent gynecomastia, slightly greater on the left than right. Further evaluation of a palpable abnormality should be based on clinical grounds regardless of radiographic findings or lack thereof. ASSESSMENT: BI-RADS Category 2: Benign
[2022-08-26 13:17] LABS: Adrenocorticotropic Hormone 44.4 pg/mL (7.2-63.3)
== END 2022-08-25 11:20 | disposition home or self-care (01) ==
LOC: INF 08:24
PROVIDERS: PCP Family Medicine; Visit Provider Internal Medicine Medical Oncology
DX: Z51.11 Encounter for antineoplastic chemotherapy (principal); C34.91 Malignant neoplasm of unspecified part of right bronchus or lung; N62 Hypertrophy of breast; Z79.899 Other long term (current) drug therapy
CPT/HCPCS: 77062; 77066; 80053; 82024; 82533; 84443; 85025; 96413; G0279; J9173

== ENCOUNTER 2022-09-22 09:29 | Outpatient (CLI) | payer MEDICARE, MEDICAID, SELFPAY ==
[2022-09-22 09:31] VITALS: BMI 32.6
[2022-09-22 09:56] LABS: Chloride 95 mmol/L (98-107)
[2022-09-22 09:57] LABS: Basophils % 0.7 % (0.1-2.0); Eosinophils # 0.1 K/mm3 (0.0-0.4); Eosinophils % 3.7 % (0.1-12.0); Hematocrit 40.7 % (42.0-52.0); Hemoglobin 13.1 g/dL (14.1-18.0); Lymphocytes % 26.9 % (10-50); Mean Corpuscular HGB Conc 32.2 g/dL (31.8-35.4); Mean Corpuscular Hemoglobin 31.1 pg (27.0-31.2); Mean Corpuscular Volume 96.7 fl (80-94); Monocytes # 0.4 K/mm3 (0.1-1.0); Monocytes % 10.9 % (1.7-9.3); Neutrophils # 2.1 K/mm3 (1.8-7.8); Neutrophils % 57.7 % (37.0-80.0); Platelet Count 152 K/mm3 (142-424); Potassium 4.4 mmoL/L (3.5-5.1); Red Blood Count 4.21 M/mm3 (4.60-6.20); Red Cell Distribution Width 14.4 % (11.5-17.5); Sodium 139 mmol/L (136-145); White Blood Count 3.6 K/mm3 (4.8-10.8)
[2022-09-22 10:19] LABS: Blood Urea Nitrogen 6 mg/dl (9-20); Creatinine Clearance Estimated 98 mL/min (50-200); Estimated Glomerular Filt Rate 84 ml/min (>60); GFR (African American) 102 ML/MIN (>60)
[2022-09-22 10:20] LABS: Alanine Aminotransferase 20 U/L (12-78); Albumin/Globulin Ratio 1.4 (1.1-1.8); Alkaline Phosphatase 59 U/L (38-126); Anion Gap 14.4 mEq/L (5-15); Aspartate Amino Transferase 23 U/L (17-59); Bilirubin,Total 0.7 mg/dl (0.2-1.3); Calcium 8.5 mg/dl (8.4-10.2); Carbon Dioxide 34 mmol/L (22.0-30.0); Globulin 2.9 g/dL (1.3-3.2); Glucose 156 mg/dl (74-100); Total Protein,Serum 6.9 g/dl (6.3-8.2)
[2022-09-22 11:09] VITALS: BP 103/65; PULSE 71; RESP 18; TEMP 36.6; O2SAT 98
[2022-09-22 11:39] VITALS: BP 108/59; PULSE 74; RESP 18; O2SAT 97
[2022-09-22 12:29] VITALS: BP 110/62; PULSE 70; RESP 18; O2SAT 97
[2022-09-23 15:48] LABS: Adrenocorticotropic Hormone 34.4 pg/mL (7.2-63.3)
== END 2022-09-22 12:35 | disposition home or self-care (01) ==
LOC: INF 09:29
PROVIDERS: PCP Family Medicine; Visit Provider Internal Medicine Medical Oncology
DX: Z51.11 Encounter for antineoplastic chemotherapy (principal); C34.91 Malignant neoplasm of unspecified part of right bronchus or lung; Z79.899 Other long term (current) drug therapy
CPT/HCPCS: 80053; 82024; 82533; 84443; 85025; 96413; J9173

== ENCOUNTER → 2022-10-11 07:54 | Outpatient (CLI) | payer MEDICARE, MEDICAID, SELFPAY ==
--- NOTE | 2022-10-11 08:01 | CT_ITS ---
FINAL REPORT TECHNIQUE: Thin section axial images were obtained from the thoracic inlet through the upper abdomen after intravenous contrast injection. Reconstruction images were obtained from the axial data. Exam was performed using dose reduction technique. CLINICAL HISTORY: LUNG CANCER COMPARISON: 06/18/2022 FINDINGS: There is no mediastinal, hilar, or axillary lymphadenopathy. There is a small pericardial effusion. No pleural effusion is identified. The previously identified bilateral lower lobe pneumonia has resolved. There is a subpleural right lower nodular opacity measuring 8 mm on image 53, unchanged. There is a subpleural nodule opacity on image 34 measuring 11 mm, unchanged. No acute osseous abnormality. IMPRESSION: Resolution of bilateral pneumonia. Stable, subpleural right nodule opacities which are indeterminate. Reviewed, Interpreted and Dictated by Gaby Contreras MD Transcribed by Chela Georges Authenticated and [facility]
--- NOTE | 2022-10-11 08:01 | CT_ITS ---
FINAL REPORT TECHNIQUE: Thin section axial images were obtained through the abdomen after intravenous contrast. Oral contrast was given. Reconstruction images were obtained from the axial data. Exam was performed using dose reduction techniques. CLINICAL HISTORY: LUNG CANCER COMPARISON: 12/20/2021 FINDINGS: There is a hypodense lesion in the right lobe of the liver which is unchanged, favor a cyst. The gallbladder is present. The spleen and left adrenal gland are unremarkable. There are 2 right adrenal nodules which have increased in size. The inferior nodule measures 2.3 cm, previously measured 1.3 cm concerning for metastases. There is abnormal attenuation surrounding the pancreas concerning for acute pancreatitis. There is no hydronephrosis or solid renal mass. There is an abdominal aortic aneurysm which is stable. Abdominal GI tract is without acute abnormality. There is no abdominal lymphadenopathy or ascites. The prostate is unremarkable. The appendix is not identified but there are no secondary signs to suggest appendicitis. There is a moderate to large amount of retained stool. There is no pelvic lymphadenopathy or ascites. No acute osseous abnormalities identified. IMPRESSION: Interval increase in size in the right adrenal nodule most consistent with metastases. Consider PET CT. Abnormal attenuation surrounding the pancreas concerning for pancreatitis. Constipation. Reviewed, Interpreted and Dictated by Gaby Contreras MD Transcribed by Chela Georges Authenticated and [facility]
== END ==
PROVIDERS: PCP Family Medicine; Visit Provider Internal Medicine Medical Oncology
DX: C34.91 Malignant neoplasm of unspecified part of right bronchus or lung (principal)
CPT/HCPCS: 71260; 74177; Q9967

== ENCOUNTER 2022-10-20 12:52 | Outpatient (CLI) | payer MEDICARE, MEDICAID, SELFPAY ==
[2022-10-20 12:58] VITALS: BMI 32.5
[2022-10-20 13:21] LABS: Basophils % 0.8 % (0.1-2.0); Eosinophils # 0.1 K/mm3 (0.0-0.4); Eosinophils % 2.8 % (0.1-12.0); Hematocrit 40.7 % (42.0-52.0); Hemoglobin 12.5 g/dL (14.1-18.0); Lymphocytes % 30.7 % (10-50); Mean Corpuscular HGB Conc 30.8 g/dL (31.8-35.4); Mean Corpuscular Hemoglobin 30.8 pg (27.0-31.2); Mean Platelet Volume 9.9 fl (7.4-10.4); Monocytes # 0.4 K/mm3 (0.1-1.0); Monocytes % 12.1 % (1.7-9.3); Neutrophils # 1.8 K/mm3 (1.8-7.8); Neutrophils % 53.6 % (37.0-80.0); Platelet Count 112 K/mm3 (142-424); Red Blood Count 4.07 M/mm3 (4.60-6.20); Red Cell Distribution Width 14.5 % (11.5-17.5); White Blood Count 3.4 K/mm3 (4.8-10.8)
[2022-10-20 13:29] LABS: Chloride 100 mmol/L (98-107); Sodium 137 mmol/L (136-145)
[2022-10-20 13:30] LABS: Potassium 3.5 mmoL/L (3.5-5.1)
[2022-10-20 13:32] LABS: Alanine Aminotransferase 28 U/L (12-78); Albumin Level 3.4 g/dl (3.5-5.0); Albumin/Globulin Ratio 1.3 (1.1-1.8); Alkaline Phosphatase 71 U/L (38-126); Anion Gap 5.5 mEq/L (5-15); Aspartate Amino Transferase 45 U/L (17-59); Bilirubin,Total 0.7 mg/dl (0.2-1.3); Blood Urea Nitrogen 6 mg/dl (9-20); Carbon Dioxide 35 mmol/L (22.0-30.0); Creatinine Clearance Estimated 97 mL/min (50-200); Estimated Glomerular Filt Rate 74 ml/min (>60); GFR (African American) 90 ML/MIN (>60); Globulin 2.7 g/dL (1.3-3.2); Total Protein,Serum 6.1 g/dl (6.3-8.2)
[2022-10-20 13:33] LABS: Glucose 111 mg/dl (74-100)
== END 2022-10-20 14:17 | disposition home or self-care (01) ==
LOC: INF 12:53
PROVIDERS: PCP Family Medicine; Visit Provider Internal Medicine Medical Oncology
DX: Z79.899 Other long term (current) drug therapy; C34.91 Malignant neoplasm of unspecified part of right bronchus or lung
CPT/HCPCS: 36415; 80053; 82533; 84443; 85025

== ENCOUNTER → 2023-01-30 08:59 | Outpatient (CLI) | payer MEDICARE, MEDICAID, SELFPAY ==
--- NOTE | 2023-01-30 09:07 | CT_ITS ---
FINAL REPORT TECHNIQUE: Thin section axial images were obtained through the abdomen after intravenous contrast. Reconstruction images were obtained from the axial data. Exam was performed using dose reduction techniques. CLINICAL HISTORY: CANCER FINDINGS: There is a stable cyst in the right hepatic lobe. The liver is otherwise homogeneous. The gallbladder is present. The spleen, adrenal glands, and pancreas are unremarkable. There has been resolution of abnormal attenuation surrounding the pancreatic head. Previously seen right adrenal nodule is no longer visualized, likely related to treated metastatic disease. There is no hydronephrosis or solid renal mass. Abdominal GI tract is without acute abnormality. There is no abdominal lymphadenopathy or ascites. There is an abdominal aortic aneurysm measuring 3.7 cm, unchanged. There is wall thickening of the urinary bladder which could be related to cystitis. GI tract is without acute abnormality. Appendix is not identified. There are no secondary findings of appendicitis. There is no pelvic lymphadenopathy or ascites. No acute osseous abnormalities identified. IMPRESSION: Right adrenal nodule no longer visualized, likely related to posttreatment change. Resolution of previously seen pancreatitis. Wall thickening of the urinary bladder which may represent cystitis. Reviewed, Interpreted and Dictated by Gaby Contreras MD Transcribed by Yaa Obrien Authenticated and [facility]
--- NOTE | 2023-01-30 09:07 | CT_ITS ---
FINAL REPORT TECHNIQUE: Thin section axial images were obtained from the thoracic inlet through the upper abdomen after intravenous contrast injection. Reconstruction images were obtained from the axial data. Exam was performed using dose reduction technique. CLINICAL HISTORY: CANCER COMPARISON: 10/11/2022 FINDINGS: There are small mediastinal lymph nodes which are stable. There is no axillary or hilar adenopathy. There is a stable, small pericardial effusion. There is no pleural effusion. Subpleural posterior right upper lobe nodularity is visually stable. Nodularity measures 18 mm, was previously 15 mm on remeasurement. Difference is likely due to slice selection. Previously seen right lower lobe subpleural nodule is not identified on today's exam. Mixed density nodule in the right lower lobe on image 67 measuring 9 mm and is unchanged. There is no new mass or nodule. No acute osseous abnormality. IMPRESSION: Resolved right lower lobe nodule with stable, more lateral mixed density nodule and posterior right upper lobe nodularity. No new mass or nodule. Reviewed, Interpreted and Dictated by Gaby Contreras MD Transcribed by Yaa Obrien Authenticated and [facility]
[2023-01-30 09:37] LABS: Blood Urea Nitrogen 7 mg/dl (9-20); Estimated Glomerular Filt Rate 96 ml/min (>60); GFR (African American) 116 ML/MIN (>60)
== END ==
PROVIDERS: PCP Family Medicine; Visit Provider Internal Medicine Medical Oncology
DX: C34.91 Malignant neoplasm of unspecified part of right bronchus or lung (principal)
CPT/HCPCS: 36415; 71260; 74177; 82565; 84520; Q9967

== ENCOUNTER 2023-02-02 11:36 | Outpatient (CLI) | payer MEDICARE, MEDICAID, SELFPAY ==
[2023-02-02 11:38] VITALS: BMI 28.5
--- NOTE | 2023-02-02 11:56 | PC.NURSE ---
1140 - BLOOD DRAWN USING BUTTERFLY NEEDLE TO CHECK CBC AND CMP AT THIS TIME.
[2023-02-02 12:03] LABS: Alanine Aminotransferase 18 U/L (12-78); Albumin Level 3.8 g/dl (3.5-5.0); Albumin/Globulin Ratio 1.4 (1.1-1.8); Alkaline Phosphatase 69 U/L (38-126); Aspartate Amino Transferase 26 U/L (17-59); Bilirubin,Total 0.8 mg/dl (0.2-1.3); Blood Urea Nitrogen 8 mg/dl (9-20); Calcium 8.8 mg/dl (8.4-10.2); Carbon Dioxide 35 mmol/L (22.0-30.0); Chloride 101 mmol/L (98-107); Creatinine Clearance Estimated 84 mL/min (50-200); Estimated Glomerular Filt Rate 84 ml/min (>60); GFR (African American) 101 ML/MIN (>60); Globulin 2.7 g/dL (1.3-3.2); Glucose 122 mg/dl (74-100); Sodium 138 mmol/L (136-145); Total Protein,Serum 6.5 g/dl (6.3-8.2)
[2023-02-02 12:45] LABS: Basophils % 0.6 % (0.1-2.0); Eosinophils # 0.1 K/mm3 (0.0-0.4); Eosinophils % 1.9 % (0.1-12.0); Hematocrit 39.1 % (42.0-52.0); Hemoglobin 12.9 g/dL (14.1-18.0); Lymphocytes # 0.8 K/mm3 (0.7-4.5); Lymphocytes % 25.9 % (10-50); Mean Corpuscular Hemoglobin 32.3 pg (27.0-31.2); Monocytes # 0.5 K/mm3 (0.1-1.0); Monocytes % 17.5 % (1.7-9.3); Neutrophils # 1.7 K/mm3 (1.8-7.8); Neutrophils % 53.8 % (37.0-80.0); Platelet Count 104 K/mm3 (142-424); Red Blood Count 3.99 M/mm3 (4.60-6.20); Red Cell Distribution Width 14.8 % (11.5-17.5); White Blood Count 3.1 K/mm3 (4.8-10.8)
== END 2023-02-02 11:45 | disposition home or self-care (01) ==
LOC: INF 11:38
PROVIDERS: PCP Family Medicine; Visit Provider Internal Medicine Medical Oncology
DX: C34.90 Malignant neoplasm of unspecified part of unspecified bronchus or lung (principal)
CPT/HCPCS: 36415; 80053; 85025

== ENCOUNTER → 2023-02-06 09:53 | Outpatient (CLI) | payer MEDICARE, MEDICAID, SELFPAY | PROVIDERS: PCP Family Medicine; Visit Provider Internal Medicine Pulmonary Disease | DX: R06.09 Other forms of dyspnea (principal) | CPT/HCPCS: 94060; 94618; 94726; 94729 ==

== ENCOUNTER 2023-02-16 12:02 | Day surgery (SDC) | payer MEDICARE, MEDICAID, SELFPAY ==
[2023-02-14 13:02] VITALS: BMI 27.3
[2023-02-16 12:36] VITALS: BP 102/59; PULSE 69; RESP 18; TEMP 36.1; O2SAT 94
--- NOTE | 2023-02-16 12:49 | EXP.ANES.CKL ---
[facility] Disclaimer: The information contained in this section may have been updated after the patient was seen, as this information can be updated by other users. Medical History AAA (abdominal aortic aneurysm) Abnormal EKG Acute on chronic respiratory failure with hypoxia and hypercapnia Atherosclerotic heart disease CAD (coronary artery disease) Cancer lung Cataract CHF (congestive heart failure) COPD (chronic obstructive pulmonary disease) COPD exacerbation DVT (deep venous thrombosis) Dyspnea on exertion Gout HAP (hospital-acquired pneumonia) History of chemotherapy History of radiation therapy HLD (hyperlipidemia) Hypertension Hypotension Hypothyroidism Influenza A Lung disease Lung nodule Malignant neoplasm of unspecified part of unspecified bronchus or lung Melanoma Myocardial infarction Pacemaker PAF (paroxysmal atrial fibrillation) Pulmonary emphysema Sinus problem Smoking greater than 30 pack years Thyroid disease Tobacco abuse Tobacco abuse counseling Tobacco abuse disorder Surgical History H/O melanoma excision History of cardiac cath History of colonoscopy History of heart artery stent History of permanent cardiac pacemaker placement Family History Other AAA (abdominal aortic aneurysm) Coronary artery disease Gout Heart attack Hypertension Social History Smoking Status: Former smoker alcohol intake: former substance use type: denies use 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ional status: retired and disabled Travel in the last 8 weeks: None household members: spouse housing: house lives independently: No marital status: education level: high school service: No longterm: No caffeine: No special honey needs: No agree to transfusion: No do you feel safe at home: Yes victim of physical abuse: No victim of emotional abuse: No victim of sexual abuse: No would you like helpful sources: No [facility] Anesthesia Checklist Patient Identification Patient Identification: Arm Band Structural Data Admitted From: Home Planned Operative Procedure/s: EGD Consent for Planned Operative Procedure(s) Verified: Yes Verified Documents: Surgical Consent and History and Physical NPO Status Verified Time NPO: 00:00 Additional verifications Anesthesia Reactions: No Hx Blood Transfusions: No Blood Transfusion Reaction: No Airway Assessment Mallampati Score:: Class II C-Spine Mobility Assessed: Yes TMJ Mobility Assessed: Yes Dentition: Edentulous Neurological Assessment Level of Consciousness: Awake and Alert Anesthesia Plan Anesthesia Risk discussed: Yes Anesthesia Plan: Verified ASA Class: III Anesthesia Type: MAC
[2023-02-16 13:15] VITALS: O2SAT 94
--- NOTE | 2023-02-16 13:28 | HMH.SCOPE ---
Procedure: Date: 02/16/23 Patient Date of :: 1955 Procedure Performed:: EGD and dilation Indications:: Abdominal pain and dysphagia Performing Provider:: Kenia Adkins MD Referring Provider:: Kenji James Sedation:: Propofol Procedure:: The gastroscope was gently passed through the incisoral orifice into the oral cavity and under direct visualization the esophagus was intubated. The endoscope was passed down the esophagus, through the stomach, and into the duodenum. Color, texture, mucosa, and anatomy of the esophagus, stomach, and duodenum were carefully examined with the scope. Findings:: Oropharynx: normal Esophagus: normal,dysphagia treated with empiric bougie [id number] EG Junction: intact at 40 cm Cardia: normal Fundus: normal Body: normal Antrum: normal Duodenal bulb: normal Duodenum (second and third portion): normal Impression: Normal EGD Bougie dilation performed for treatment of dysphagia Recommendations:: Repeat EGD and dilation in about Three years or so as clinically indicated. Complications:: None Estimated blood obtained (mL): 0 Colonoscopy Component Colonoscopy Component Was a colonoscopy performed during today's procedure?: No
[2023-02-16 13:32] VITALS: BP 104/63; PULSE 68; RESP 17; TEMP 36.8; O2SAT 98
[2023-02-16 13:42] VITALS: BP 98/59; PULSE 69; RESP 18; O2SAT 97
[2023-02-16 13:52] VITALS: BP 111/62; PULSE 69; RESP 17; O2SAT 94
[2023-02-16 14:02] VITALS: BP 108/72; PULSE 75; RESP 18; O2SAT 94
== END 2023-02-16 14:02 | disposition home or self-care (01) ==
PROVIDERS: PCP Family Medicine; Visit Provider Internal Medicine Gastroenterology
PROC: 0DJ08ZZ Inspection of Upper Intestinal Tract, Via Natural or Artificial Opening Endoscopic (ICD-10-PCS; CPT 43235; principal; 2023-02-16 13:00)
DX: R13.10 Dysphagia, unspecified (principal); R10.9 Unspecified abdominal pain
CPT/HCPCS: 43248

== ENCOUNTER 2023-03-29 18:41 | Emergency (ER) | payer MEDICARE, MEDICAID, SELFPAY ==
[2023-03-29 19:00] VITALS: BP 96/54; PULSE 86; RESP 18; TEMP 36.8; O2SAT 93; BMI 27.9
--- NOTE | 2023-03-29 19:18 | EXP.UTC ---
Discharge Plan Disposition Patient Disposition: Home, Self-Care Condition: Good Prescriptions Prescriptions: New prednisone 10 mg tablet 10 mg PO DIRECTED 9 Days Qty: 21 0RF Rx Instructions: Take 4 tablets daily for 3 days, then take 2 tablets daily for 3 days, then take 1 tablet daily for 3 days, then stop. amoxicillin [amoxicillin] 875 mg tablet 875 mg PO Q12H Qty: 20 0RF benzonatate [benzonatate] 100 mg capsule 100 mg PO TIDP PRN (Reason: Cough) Qty: 30 0RF polyethylene glycol 3350 [Miralax] 17 gram/dose powder 17 g PO DAILY PRN (Reason: constipation) Qty: 119 0RF docusate sodium [Colace] 100 mg capsule 100 mg PO DAILY Qty: 30 0RF No Action albuterol sulfate [ProAir HFA] 90 mcg/actuation HFA aerosol inhaler 2 puff IH QID PRN (Reason: shortness of breath or wheezing) 90 Days Qty: 8.5 3RF Trelegy Ellipta 100-62.5-25 mcg blister with device 1 inh inhalation DAILY 90 Days Qty: 90 3RF levothyroxine 150 mcg tablet 150 mcg PO DAILY metoprolol succinate 25 mg tablet extended release 24 hr See Rx Instructions .ROUTE .COMPLEX Qty: 30 5RF Dose Instruction: TAKE 1 TABLET BY MOUTH AT BEDTIME Rx Instructions: TAKE 1 TABLET BY MOUTH AT BEDTIME prochlorperazine maleate 10 mg tablet 10 mg PO NEEDED PRN (Reason: Stomach Upset) Trelegy Ellipta 100-62.5-25 mcg blister with device 1 ea INHALATION DAILY lovastatin 40 MG tablet 40 mg PO HS allopurinol 300 MG tablet 300 mg PO DAILY aspirin 81 mg tablet,delayed release (DR/EC) 81 mg PO BID Referrals Follow up/Referrals: Kenji James MD [Primary Care Provider] - See instructions Activity Restrictions/Add. Instructions Additional Instructions/Restrictions: Drink plenty of fluids. Take the medications as directed. Take the miralax as directed for constipation. The colace is a stool softener. Generally people take it every day. Follow up with your regular doctor. GO TO THE ER FOR ANY WORSENING SYMPTOMS Clinical Impressions Clinical Impression: Sinusitis, Constipation Instructions Patient Instructions: DI for Sinusitis, DI for Constipation, Stool Softeners, Polyethylene Glycol 3350 Discharge ED Provider: Jose Guardado [facility] General Stated complaint: COUGH CONGESTION CONSTIPATION Time Seen by Provider: 03/29/23 19:18 History of Present Illness Provider Complaint: He states that for the past 3 days he has had sinus congestion and a cough. He also c/o having constipation and he has not had a bowel movement in the past 3 days. Related Data Home Medications Medication Instructions Recorded Confirmed allopurinol 300 mg tablet 300 mg PO DAILY GOUT 12/22/17 02/17/23 lovastatin 40 mg tablet 40 mg PO HS Cholesterol 12/22/17 02/17/23 aspirin 81 mg tablet,delayed 81 mg PO BID HEART HEALTH 08/24/20 02/17/23 release levothyroxine 150 mcg tablet 150 mcg PO DAILY thyroid 02/02/23 02/17/23 fluticasone fur. 100 mcg-umeclid 1 ea inhalation DAILY Breathing 02/16/23 02/17/23 62.5 mcg-vilant 25 mcg Problems inhalat.powder (Trelegy Ellipta) prochlorperazine maleate 10 mg 10 mg PO NEEDED PRN Stomach 02/16/23 02/17/23 tablet Upset Previous Rx's Medication Instructions Recorded albuterol sulfate 90 mcg/actuation 2 puff inhalation QID PRN 01/26/22 aerosol inhaler (ProAir HFA) shortness of breath or wheezing 90 days #8.5 grams fluticasone fur. 100 mcg-umeclid 1 inh inhalation DAILY 90 days #90 02/17/23 62.5 mcg-vilant 25 mcg ea inhalat.powder (Trelegy Ellipta) metoprolol succinate 25 mg See Rx Instructions .Route 03/14/23 tablet,extended release 24 hr .COMPLEX #30 tabs amoxicillin 875 mg tablet 875 mg PO Q12H #20 tabs 03/29/23 benzonatate 100 mg capsule 100 mg PO TIDP PRN Cough #30 caps 03/29/23 docusate sodium 100 mg capsule 100 mg PO DAILY #30 caps 03/29/23 (Colace) polyethylene glycol 3350 17 17 g PO DAILY PRN constipation 03/29/23
[2023-03-29 19:52] VITALS: BP 96/54; PULSE 86; RESP 18; TEMP 36.8; O2SAT 93
== END 2023-03-29 19:52 | disposition home or self-care (01) ==
PROVIDERS: Emergency Provider Nurse Practitioner Family; PCP Family Medicine
DX: J01.90 Acute sinusitis, unspecified (principal); K59.00 Constipation, unspecified; R05.9 Cough, unspecified; J44.9 Chronic obstructive pulmonary disease, unspecified; I25.10 Atherosclerotic heart disease of native coronary artery without angina pectoris; I11.0 Hypertensive heart disease with heart failure; I50.9 Heart failure, unspecified; E78.5 Hyperlipidemia, unspecified; E03.9 Hypothyroidism, unspecified
CPT/HCPCS: 99204; 99212; G0463

== ENCOUNTER → 2023-05-08 08:46 | Outpatient (CLI) | payer MEDICARE, MEDICAID, SELFPAY ==
[2023-05-08 08:40] VITALS: BMI 28.3
--- NOTE | 2023-05-08 08:53 | CT_ITS ---
FINAL REPORT CLINICAL HISTORY: LUNG CANCER COMPARISON: 01/30/2023 FINDINGS: Axial CT images of the chest were obtained with contrast. Coronal and sagittal reformatted images were also obtained. This study was performed with techniques to keep radiation doses as low as reasonably achievable, (ALARA). Individualized dose reduction techniques using automated exposure control or adjustment of mA and/or KV according to the patient's size were employed. There is mild but increasing worsening mediastinal adenopathy when compared to the prior exam of January. There is a 14 mm AP window nodule, that was 11 mm on the prior exam. Moderate changes of emphysema are present. No axillary mass or adenopathy is identified. There is a peripheral pleural-based soft tissue focus in the right upper thorax, lateral, measuring 16 mm in size, stable. There is an 8 mm mixed attenuation nodular focus present, which measures 8 mm on today's exam, was 9 mm on the prior exam. Bilateral gynecomastia is present. No localized pulmonary inflammatory process is identified. Limited images of the upper abdomen reveal a probable small cyst in the right liver dome, stable since the prior CT. IMPRESSION: Mild but worsening mediastinal adenopathy as described above, which is worrisome for worsening neoplastic involvement. Continued follow-up is suggested. A persistent pleural-based soft tissue nodule is present in the right upper thorax, stable. Another 8 mm mixed attenuation nodule is slightly smaller than noted on the prior CT of January 2023. Reviewed, Interpreted and Dictated by Noel Yi III, MD Transcribed by Linda Mack Authenticated and . [facility]
--- NOTE | 2023-05-08 08:53 | CT_ITS ---
FINAL REPORT CLINICAL HISTORY: lung cancer COMPARISON: 01/30/2023 FINDINGS: CT OF THE ABDOMEN AND PELVIS WITH CONTRAST Axial CT images of the abdomen and pelvis were obtained after the administration of oral and iv contrast. Coronal and sagittal reformatted images were also obtained and reviewed.This study was performed with techniques to keep radiation doses as low as reasonably achievable (ALARA). Individualized dose reduction techniques using automated exposure control or adjustment of mA and/or kV according to the patient's size were employed. Abdomen: . The heart is normal in size. The liver has an unremarkable appearance, without evidence of mass or biliary ductal dilatation. There is a probable small cyst in the right liver dome, stable since the prior CT of January. The spleen is unremarkable. No adrenal mass is present. The pancreas has an unremarkable appearance. The kidneys are normal, without evidence of mass or hydronephrosis. A 3.7 cm abdominal aortic aneurysm remains present, stable. There is no free fluid or adenopathy. No mass or abnormal fluid collection is seen. Pelvis: The appendix is not well-visualized. The urinary bladder reveals mild bladder wall thickening, likely inflammatory, unchanged since January 2023. No inflammatory process is seen. There is no evidence of mass or adenopathy. There is no evidence of bowel obstruction. IMPRESSION: 3.7 cm abdominal aortic aneurysm, stable. Probable small cyst right liver dome, stable. Mild bladder wall thickening, likely inflammatory, also unchanged. Reviewed, Interpreted and Dictated by Noel Yi III, MD Transcribed by Linda Mack Authenticated and [facility]
[2023-05-08 09:04] LABS: Chloride 96 mmol/L (98-107); Potassium 4.2 mmoL/L (3.5-5.1); Sodium 136 mmol/L (136-145)
[2023-05-08 09:07] LABS: Alanine Aminotransferase 18 U/L (12-78); Albumin Level 4.1 g/dl (3.5-5.0); Albumin/Globulin Ratio 1.4 (1.1-1.8); Alkaline Phosphatase 63 U/L (38-126); Anion Gap 5.2 mEq/L (5-15); Aspartate Amino Transferase 27 U/L (17-59); Blood Urea Nitrogen 8 mg/dl (9-20); Calcium 8.7 mg/dl (8.4-10.2); Carbon Dioxide 39 mmol/L (22.0-30.0); Creatinine Clearance Estimated 83 mL/min (50-200); Estimated Glomerular Filt Rate 112 ml/min (>60); GFR (African American) 135 ML/MIN (>60); Globulin 2.9 g/dL (1.3-3.2); Glucose 87 mg/dl (74-100)
[2023-05-08 09:10] LABS: Basophils % 0.6 % (0.1-2.0); Eosinophils # 0.1 K/mm3 (0.0-0.4); Eosinophils % 1.6 % (0.1-12.0); Hematocrit 49.7 % (42.0-52.0); Hemoglobin 16.3 g/dL (14.1-18.0); Lymphocytes % 28.6 % (10-50); Mean Corpuscular HGB Conc 32.7 g/dL (31.8-35.4); Mean Corpuscular Hemoglobin 33.8 pg (27.0-31.2); Mean Corpuscular Volume 103.2 fl (80-94); Mean Platelet Volume 8.9 fl (7.4-10.4); Monocytes # 0.4 K/mm3 (0.1-1.0); Monocytes % 12.3 % (1.7-9.3); Neutrophils % 56.9 % (37.0-80.0); Platelet Count 98 K/mm3 (142-424); Red Blood Count 4.82 M/mm3 (4.60-6.20); Red Cell Distribution Width 14.6 % (11.5-17.5); White Blood Count 3.5 K/mm3 (4.8-10.8)
--- NOTE | 2023-05-08 09:30 | PC.NURSE ---
0842- IV started for CT and cbc, cmp drawn per MD order for oncology appt .
== END ==
PROVIDERS: PCP Family Medicine; Visit Provider Internal Medicine Medical Oncology
DX: C34.91 Malignant neoplasm of unspecified part of right bronchus or lung (principal)
CPT/HCPCS: 36415; 71270; 74178; 80053; 85025; Q9967

== ENCOUNTER 2023-08-10 12:19 | Outpatient (CLI) | payer MEDICARE, MEDICAID, SELFPAY ==
--- NOTE | 2023-08-10 12:19 | CT_ITS ---
FINAL REPORT TECHNIQUE: Routine axial images were obtained from the lung apices to below the diaphragm following IV contrast administration. Individualized dose reduction techniques using automated exposure control or adjustment of the mA and/or kV according to the patient size were employed. CLINICAL HISTORY: Mediastinal adenopathy COMPARISON: 05/08/2023 FINDINGS: CT CHEST WITH CONTRAST: CT examination of the chest is compared to a prior examination dated 05/08/2023. Mediastinal adenopathy is once again identified, with prevascular nodes present which are increased in size compared to the prior CT. A prevascular node noted on the prior CT which measures 12 mm on today's exam measures 14 mm. The other nodes in this region are significantly larger as well. There is a right infrahilar 19 mm node which is significantly larger than noted on the prior exam. There is now a small right pleural effusion, which was not clearly seen on the prior CT examination. Changes of centrilobular emphysema remain present. No new infiltrates are identified. IMPRESSION: Worsening adenopathy, both in numbers and in size when compared to the prior CT of 05/08/2023 as described. A new right pleural effusion is now present. Reviewed, Interpreted and Dictated by Selvin Mitchell MD Transcribed by Linda Mack Authenticated and [facility]
[2023-08-10 12:34] VITALS: BMI 27.9
[2023-08-10 13:03] LABS: Basophils % 0.9 % (0.1-2.0); Eosinophils # 0.1 K/mm3 (0.0-0.4); Eosinophils % 2.2 % (0.1-12.0); Hematocrit 45.5 % (42.0-52.0); Hemoglobin 15.1 g/dL (14.1-18.0); Lymphocytes # 1.2 K/mm3 (0.7-4.5); Lymphocytes % 34.7 % (10-50); Mean Corpuscular HGB Conc 33.1 g/dL (31.8-35.4); Mean Corpuscular Hemoglobin 32.2 pg (27.0-31.2); Mean Corpuscular Volume 97.2 fl (80-94); Mean Platelet Volume 9.3 fl (7.4-10.4); Monocytes # 0.4 K/mm3 (0.1-1.0); Neutrophils # 1.7 K/mm3 (1.8-7.8); Neutrophils % 50.2 % (37.0-80.0); Platelet Count 106 K/mm3 (142-424); Red Blood Count 4.68 M/mm3 (4.60-6.20); Red Cell Distribution Width 14.5 % (11.5-17.5); White Blood Count 3.4 K/mm3 (4.8-10.8)
[2023-08-10 13:09] LABS: Chloride 96 mmol/L (98-107); Potassium 4.1 mmoL/L (3.5-5.1); Sodium 135 mmol/L (136-145)
[2023-08-10 13:12] LABS: Alanine Aminotransferase 13 U/L (12-78); Albumin Level 3.8 g/dl (3.5-5.0); Albumin/Globulin Ratio 1.2 (1.1-1.8); Alkaline Phosphatase 71 U/L (38-126); Anion Gap 7.1 mEq/L (5-15); Aspartate Amino Transferase 26 U/L (17-59); Bilirubin,Total 0.8 mg/dl (0.2-1.3); Blood Urea Nitrogen 9 mg/dl (9-20); Calcium 8.9 mg/dl (8.4-10.2); Carbon Dioxide 36 mmol/L (22.0-30.0); Creatinine Clearance Estimated 82 mL/min (50-200); Estimated Glomerular Filt Rate 112 ml/min (>60); GFR (African American) 135 ML/MIN (>60); Globulin 3.1 g/dL (1.3-3.2); Glucose 84 mg/dl (74-100); Total Protein,Serum 6.9 g/dl (6.3-8.2)
--- NOTE | 2023-08-10 13:27 | CT_ITS ---
FINAL REPORT TECHNIQUE: After the administration of oral and intravenous contrast, axial images were obtained through the abdomen and pelvis by computed tomography. The study was performed with techniques to keep radiation dose as low as reasonably achievable, (ALARA). Individual dose reduction techniques using automated exposure control or adjustment of mA and/or kV according to the patient's size were employed. CLINICAL HISTORY: LUNG CANCER COMPARISON: 05/08/2023 FINDINGS: Abdomen: There is a tiny cyst noted in the dome of the liver in the right lobe, which is stable since the prior CT examination. The gallbladder is present. The spleen, pancreas, adrenals and kidneys appear unremarkable. There is a 3.6 cm abdominal aortic aneurysm, stable in size since the prior CT of April. There is circumferential mural thrombus again identified. There is dense calcification in the iliac arteries, but no significant change in size and appearance since the prior exam. There is no free fluid or adenopathy. Pelvis: The appendix is not identified. The urinary bladder is unremarkable. There is no free fluid or adenopathy. IMPRESSION: 3.6 cm abdominal aortic aneurysm, stable in appearance since the prior CT of April 2023. Small cystic focus in the right lobe of the liver dome, stable. Reviewed, Interpreted and Dictated by Selvin Mitchell MD Transcribed by Linda Mack Authenticated and [facility]
[2023-08-10] MEDS: IOPAMIDOL-370 (76%);100ML BOTTLE 75 ML IV (13:53)
[2023-08-10] MEDS: SODIUM CHLORIDE 0.9% 10ML SYR (RAD ONLY) 10 ML IV (13:53)
== END 2023-08-10 23:59 ==
PROVIDERS: Internal Medicine Medical Oncology; PCP Family Medicine; Visit Provider Internal Medicine Pulmonary Disease
DX: R59.0 Localized enlarged lymph nodes (principal); Z85.118 Personal history of other malignant neoplasm of bronchus and lung
CPT/HCPCS: 36415; 71260; 74177; 80053; 85025; Q9967

== ENCOUNTER 2023-09-04 09:50 | Day surgery (SDC) | payer MEDICARE, MEDICAID, SELFPAY ==
[2023-09-04] VITALS (8 sets, daily range): BP systolic 109–145; BP diastolic 57–84; PULSE 69–99; RESP 14–18; TEMP 36.3–36.6; O2SAT 94–99; BMI 26.1
[2023-09-04] MEDS: LACTATED RINGERS 1000ML 1,000 ML 25 ML IV (10:03)
--- NOTE | 2023-09-04 10:27 | EXP.ANES.CKL ---
[facility] Disclaimer: The information contained in this section may have been updated after the patient was seen, as this information can be updated by other users. Medical History AAA (abdominal aortic aneurysm) Abnormal EKG Acute on chronic respiratory failure with hypoxia and hypercapnia Allergic rhinitis Atherosclerotic heart disease CAD (coronary artery disease) Cancer Cataract CHF (congestive heart failure) COPD (chronic obstructive pulmonary disease) COPD exacerbation DVT (deep venous thrombosis) Dyspnea on exertion Gout HAP (hospital-acquired pneumonia) Hilar lymphadenopathy History of chemotherapy History of lung or bronchial cancer History of radiation therapy HLD (hyperlipidemia) Hypertension Hypotension Hypothyroidism Influenza A Lung disease Lung nodule Malignant neoplasm of unspecified part of unspecified bronchus or lung Mediastinal lymphadenopathy Melanoma Myocardial infarction Pacemaker PAF (paroxysmal atrial fibrillation) Pulmonary emphysema Sinus problem Smoking greater than 30 pack years Thyroid disease Tobacco abuse Tobacco abuse counseling Tobacco abuse disorder Surgical History H/O melanoma excision History of cardiac cath History of colonoscopy History of heart artery stent Family History Other AAA (abdominal aortic aneurysm) Coronary artery disease Gout Heart attack Hypertension Social History Smoking Status: Former smoker tobacco type: cigarettes packs per day: 1 alcohol intake: former substance use type: denies use 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ional status: retired and disabled Travel in the last 8 weeks: None household members: spouse housing: house lives independently: No marital status: education level: high school service: No fpc: No caffeine: No special honey needs: No agree to transfusion: No do you feel safe at home: Yes victim of physical abuse: No victim of emotional abuse: No victim of sexual abuse: No would you like helpful sources: No [facility] Anesthesia Checklist Patient Identification Patient Identification: Arm Band Structural Data Admitted From: Home Planned Operative Procedure/s: Bronchoscopy with EBUS Consent for Planned Operative Procedure(s) Verified: Yes Verified Documents: Surgical Consent and History and Physical NPO Status Verified Time NPO: 00:00 Additional verifications Anesthesia Reactions: No Hx Blood Transfusions: No Blood Transfusion Reaction: No Airway Assessment Mallampati Score:: Class II C-Spine Mobility Assessed: Yes TMJ Mobility Assessed: Yes Dentition: Edentulous Neurological Assessment Level of Consciousness: Awake and Alert Anesthesia Plan Anesthesia Risk discussed: Yes Anesthesia Plan: Verified ASA Class: III Anesthesia Type: General
[2023-09-04 10:47] LABS: Basophils % 0.6 % (0.1-2.0); Eosinophils # 0.1 K/mm3 (0.0-0.4); Eosinophils % 3.5 % (0.1-12.0); Hematocrit 45.4 % (42.0-52.0); Lymphocytes # 1.2 K/mm3 (0.7-4.5); Lymphocytes % 33.3 % (10-50); Mean Corpuscular HGB Conc 32.9 g/dL (31.8-35.4); Mean Corpuscular Hemoglobin 32.6 pg (27.0-31.2); Mean Corpuscular Volume 99.1 fl (80-94); Mean Platelet Volume 9.7 fl (7.4-10.4); Monocytes # 0.4 K/mm3 (0.1-1.0); Monocytes % 10.9 % (1.7-9.3); Neutrophils # 1.9 K/mm3 (1.8-7.8); Neutrophils % 51.8 % (37.0-80.0); Platelet Count 109 K/mm3 (142-424); Red Blood Count 4.58 M/mm3 (4.60-6.20); Red Cell Distribution Width 14.6 % (11.5-17.5); White Blood Count 3.7 K/mm3 (4.8-10.8)
[2023-09-04 10:49] LABS: Chloride 100 mmol/L (98-107); Potassium 3.9 mmoL/L (3.5-5.1); Sodium 137 mmol/L (136-145)
[2023-09-04 10:52] LABS: Anion Gap 2.9 mEq/L (5-15); Blood Urea Nitrogen 10 mg/dl (9-20); Carbon Dioxide 38 mmol/L (22.0-30.0); Creatinine Clearance Estimated 77 mL/min (50-200); Estimated Glomerular Filt Rate 112 ml/min (>60); GFR (African American) 135 ML/MIN (>60); Glucose 84 mg/dl (74-100)
[2023-09-04 10:53] LABS: Calcium 8.9 mg/dl (8.4-10.2)
--- NOTE | 2023-09-04 13:00 | XR_ITS ---
FINAL REPORT TECHNIQUE: Single view chest CLINICAL HISTORY: postop COMPARISON: 08/10/2023 FINDINGS: A single view of the chest was obtained. The heart and mediastinum are within normal limits. Chronic scarring or fibrosis is seen. The lungs are otherwise clear. There is no pneumothorax. Osseous structures are unremarkable. IMPRESSION: No acute cardiopulmonary process. Reviewed, Interpreted and Dictated by Selvin Mitchell MD Transcribed by Yaa Obrien Authenticated and . [facility]
--- NOTE | 2023-09-04 13:00 | EXP.ANES.I ---
[facility] Anesthesia Record Part I Anesthesia Record I Intake, IV Amount: 500 Hydration: Adequate Estimated blood loss (mL): 25 Urine output (mL): 0 Blood Products used (#): none Blood Pressure: 145/79 SaO2: 99 Pulse Rate: 78 Airway Patency: Patent Respiratory Rate: 18 Temperature: 97.6 F Patient is:: Awake (Talking/Coughing) and Stable Stable to PACU at:: 12:56
--- NOTE | 2023-09-04 13:36 | EXP.BRONCH.N ---
Procedure: Date: 09/04/23 Patient Date of :: 1955 Procedure Performed:: Bronchoscopy airway examination, endobronchial ultrasound-guided fine-needle aspiration of lymph node Indications:: History of lung cancer. Lymphadenopathy. Performing Provider:: Arie Sosa MD Referring Provider:: Dr. Armando Ac Sedation:: General anesthesia Procedure:: Bronchoscopy airway examination, endobronchial ultrasound-guided fine-needle aspiration of lymph node: Clean EBUS bronchoscopy was advanced the ET tube and lymph node surveillance was performed. Patient noted lymphadenopathy at stations 11 R, 10 R, station 7 and station 10 L. Fine-needle aspiration biopsy performed at each of the above-mentioned lymph node stations. Total of 5 passes were performed at each lymph node station. Lymph node samples from FNA were sent in CytoLyt for cytopathologic examination. Lymph node samples from stations 11 R and station 7 were also sent in RPMI for flow cytometry. Patient tolerated the procedure well. No acute immediate complications Findings:: Please see the procedure note Recommendations:: Postoperative bronchoscopy instructions Follow the patient in pulmonary clinic in 5 to 7 days for the results Complications:: No acute immediate complication Estimated blood obtained (mL): 10
--- NOTE | 2023-09-05 07:09 | EXP.ANES.II ---
[facility] Anesthesia Record Part II Anesthesia Record Part II Discharge Time: 13:21 Destination: Surgical Day Care (OP Surgery) PACU nurse assessment reviewed?: Yes Patient Condition:: Good Anesthesia Complications:: None Swallowing reflex intact?: Yes Airway Patency: Patent Cyanosis?: No Blood Pressure: 117/80 SaO2: 96 Respiratory Rate: 14 Pulse Rate: 84 Temperature: 97.8 F Mental Status: Alert & Oriented Pain level:: 0 Nausea and/or vomitting:: None Intake, IV Amount: 0 Hydration: Adequate
[2023-09-05 07:11] VITALS: BP 117/80; PULSE 84; RESP 14; TEMP 36.6; O2SAT 96
== END 2023-09-04 14:00 | disposition home or self-care (01) ==
PROVIDERS: PCP Family Medicine; Visit Provider Internal Medicine Pulmonary Disease
PROC: (CPT 31653; principal; 2023-09-04 11:00)
DX: R59.0 Localized enlarged lymph nodes (principal); C34.11 Malignant neoplasm of upper lobe, right bronchus or lung; J44.9 Chronic obstructive pulmonary disease, unspecified; Z87.891 Personal history of nicotine dependence; I25.10 Atherosclerotic heart disease of native coronary artery without angina pectoris; I10 Essential (primary) hypertension; E78.5 Hyperlipidemia, unspecified; I48.0 Paroxysmal atrial fibrillation; Z79.899 Other long term (current) drug therapy
CPT/HCPCS: 31653; 71045; 80048; 85025; 88173; 88184; 88185; 88305; 88341; 88342; J2405; J2710

== ENCOUNTER 2023-10-12 12:07 | Outpatient (CLI) | payer MEDICARE, MEDICAID, SELFPAY ==
[2023-10-12 12:11] VITALS: BMI 26.1
[2023-10-12] MEDS: VITAMIN B-12 1,000 MCG 1ML VIAL 1000 MCG (12:19)
[2023-10-12 12:21] VITALS: BP 123/65; PULSE 90; RESP 19; O2SAT 92
[2023-10-12 12:32] LABS: Basophils % 0.5 % (0.1-2.0); Eosinophils # 0.1 K/mm3 (0.0-0.4); Eosinophils % 2.8 % (0.1-12.0); Hematocrit 44.2 % (42.0-52.0); Hemoglobin 14.1 g/dL (14.1-18.0); Lymphocytes # 1.3 K/mm3 (0.7-4.5); Lymphocytes % 27.7 % (10-50); Mean Corpuscular Hemoglobin 32.1 pg (27.0-31.2); Mean Corpuscular Volume 100.3 fl (80-94); Mean Platelet Volume 8.6 fl (7.4-10.4); Monocytes # 0.4 K/mm3 (0.1-1.0); Monocytes % 9.7 % (1.7-9.3); Neutrophils # 2.7 K/mm3 (1.8-7.8); Neutrophils % 59.2 % (37.0-80.0); Platelet Count 134 K/mm3 (142-424); Red Cell Distribution Width 14.5 % (11.5-17.5); White Blood Count 4.5 K/mm3 (4.8-10.8)
[2023-10-12 12:43] LABS: Chloride 99 mmol/L (98-107)
[2023-10-12 12:44] LABS: Potassium 3.9 mmoL/L (3.5-5.1); Sodium 135 mmol/L (136-145)
[2023-10-12 12:46] LABS: Alanine Aminotransferase 10 U/L (12-78); Albumin Level 3.5 g/dl (3.5-5.0); Albumin/Globulin Ratio 1.1 (1.1-1.8); Alkaline Phosphatase 79 U/L (38-126); Anion Gap 3.9 mEq/L (5-15); Aspartate Amino Transferase 22 U/L (17-59); Bilirubin,Total 0.7 mg/dl (0.2-1.3); Blood Urea Nitrogen 9 mg/dl (9-20); Calcium 9.1 mg/dl (8.4-10.2); Carbon Dioxide 36 mmol/L (22.0-30.0); Creatinine Clearance Estimated 77 mL/min (50-200); Estimated Glomerular Filt Rate 96 ml/min (>60); GFR (African American) 116 ML/MIN (>60); Globulin 3.1 g/dL (1.3-3.2); Glucose 89 mg/dl (74-100); Total Protein,Serum 6.6 g/dl (6.3-8.2)
[2023-10-12 13:18] LABS: Thyroid Stimulating Hormone 0.58 uIU/mL (0.465-4.68)
== END 2023-10-12 12:21 | disposition home or self-care (01) ==
LOC: INF 12:08
PROVIDERS: PCP Family Medicine; Visit Provider Internal Medicine Medical Oncology
DX: C34.90 Malignant neoplasm of unspecified part of unspecified bronchus or lung (principal); Z79.899 Other long term (current) drug therapy; R94.5 Abnormal results of liver function studies
CPT/HCPCS: 36415; 80053; 84436; 84443; 85025; 96372

== ENCOUNTER 2023-10-17 09:38 | Outpatient (CLI) | payer MEDICARE, MEDICAID, SELFPAY ==
[2023-10-17 09:55] VITALS: BMI 26.1
[2023-10-17] MEDS: APREPITANT 125MG/80MG TRIFOLD PACK 1 PACKET PO (10:08)
[2023-10-17] MEDS: 0.9 % SODIUM CHLORIDE 100 ML 25 ML IV (10:08)
[2023-10-17] MEDS: DEXAMETHASONE 4MG TABLET 12 MG (10:08)
[2023-10-17] MEDS: ONDANSETRON 4MG ODT 16 MG (10:08)
[2023-10-17] MEDS: CARBOPLATIN IV (10:35)
[2023-10-17] MEDS: SODIUM CHLORIDE 0.9% IV ×2 (10:35→12:11)
[2023-10-17 10:40] VITALS: BP 99/40; PULSE 76; RESP 18; TEMP 36.7; O2SAT 95
[2023-10-17 11:10] VITALS: BP 100/54; PULSE 74
[2023-10-17] MEDS: PEMBROLIZUMAB 200 MG in 0.9 % SODIUM CHLORIDE 50 ML 116 MG IV (11:18)
[2023-10-17 11:25] VITALS: BP 100/57; PULSE 65
[2023-10-17] MEDS: PROCHLORPERAZINE 10MG TABLET 10 MG PO (11:55)
[2023-10-17 12:00] VITALS: BP 100/61; PULSE 66
[2023-10-17] MEDS: PEMETREXED DISODIUM IV (12:11)
[2023-10-17 12:23] VITALS: BP 99/52; PULSE 69
[2023-10-17 12:35] VITALS: BP 100/69; PULSE 68; O2SAT 96
== END 2023-10-17 12:41 | disposition home or self-care (01) ==
LOC: INF 09:39
PROVIDERS: PCP Family Medicine; Visit Provider Internal Medicine Medical Oncology
DX: C34.11 Malignant neoplasm of upper lobe, right bronchus or lung (principal)
CPT/HCPCS: 82024; 96409; 96411; 96413; 96417; J8501; J9045; J9271; J9305

== ENCOUNTER 2023-11-07 09:50 | Outpatient (CLI) | payer MEDICARE, MEDICAID, SELFPAY ==
[2023-11-07 09:55] VITALS: BMI 26.1
[2023-11-07 10:25] LABS: Basophils # 0.1 K/mm3 (0-0.2); Basophils % 2.1 % (0.1-2.0); Eosinophils # 0.1 K/mm3 (0.0-0.4); Eosinophils % 2.6 % (0.1-12.0); Hematocrit 42.2 % (42.0-52.0); Hemoglobin 13.8 g/dL (14.1-18.0); Lymphocytes % 42.1 % (10-50); Mean Corpuscular HGB Conc 32.6 g/dL (31.8-35.4); Mean Corpuscular Volume 98.3 fl (80-94); Mean Platelet Volume 8.7 fl (7.4-10.4); Monocytes # 0.5 K/mm3 (0.1-1.0); Monocytes % 18.8 % (1.7-9.3); Neutrophils # 0.8 K/mm3 (1.8-7.8); Neutrophils % 34.3 % (37.0-80.0); Platelet Count 159 K/mm3 (142-424); Red Cell Distribution Width 15.2 % (11.5-17.5); White Blood Count 2.5 K/mm3 (4.8-10.8)
[2023-11-07 10:28] LABS: Chloride 99 mmol/L (98-107)
[2023-11-07 10:29] LABS: Potassium 3.7 mmoL/L (3.5-5.1); Sodium 137 mmol/L (136-145)
[2023-11-07 10:31] LABS: Alanine Aminotransferase 14 U/L (12-78); Alkaline Phosphatase 81 U/L (38-126); Anion Gap 5.7 mEq/L (5-15); Aspartate Amino Transferase 23 U/L (17-59); Bilirubin,Total 0.6 mg/dl (0.2-1.3); Blood Urea Nitrogen 8 mg/dl (9-20); Carbon Dioxide 36 mmol/L (22.0-30.0); Creatinine Clearance Estimated 77 mL/min (50-200); Estimated Glomerular Filt Rate 112 ml/min (>60); GFR (African American) 135 ML/MIN (>60)
[2023-11-07 10:32] LABS: Albumin Level 3.9 g/dl (3.5-5.0); Albumin/Globulin Ratio 1.2 (1.1-1.8); Calcium 9.3 mg/dl (8.4-10.2); Globulin 3.2 g/dL (1.3-3.2); Glucose 136 mg/dl (74-100); Total Protein,Serum 7.1 g/dl (6.3-8.2)
== END 2023-11-07 10:30 | disposition home or self-care (01) ==
LOC: INF 09:52
PROVIDERS: PCP Family Medicine; Visit Provider Internal Medicine Medical Oncology
DX: C34.90 Malignant neoplasm of unspecified part of unspecified bronchus or lung (principal)
CPT/HCPCS: 36415; 80053; 85025

== ENCOUNTER 2023-11-14 10:05 | Outpatient (CLI) | payer MEDICARE, MEDICAID, SELFPAY ==
[2023-11-14 10:11] VITALS: BMI 22.6
--- NOTE | 2023-11-14 10:17 | PC.NURSE ---
1017-collected labs via venipuncture stick in left ac with butterfly needle;pt to d/c home will review results.
[2023-11-14 10:27] LABS: Basophils % 0.7 % (0.1-2.0); Eosinophils % 0.5 % (0.1-12.0); Hematocrit 39.6 % (42.0-52.0); Hemoglobin 12.7 g/dL (14.1-18.0); Lymphocytes # 1.3 K/mm3 (0.7-4.5); Mean Corpuscular HGB Conc 32.2 g/dL (31.8-35.4); Mean Corpuscular Hemoglobin 31.9 pg (27.0-31.2); Mean Platelet Volume 9.4 fl (7.4-10.4); Monocytes # 0.6 K/mm3 (0.1-1.0); Monocytes % 18.4 % (1.7-9.3); Neutrophils # 1.2 K/mm3 (1.8-7.8); Neutrophils % 39.5 % (37.0-80.0); Platelet Count 175 K/mm3 (142-424); Red Cell Distribution Width 16.7 % (11.5-17.5); White Blood Count 3.1 K/mm3 (4.8-10.8)
== END 2023-11-14 10:20 | disposition home or self-care (01) ==
LOC: INF 10:06
PROVIDERS: PCP Family Medicine; Visit Provider Internal Medicine Medical Oncology
DX: C34.90 Malignant neoplasm of unspecified part of unspecified bronchus or lung (principal)
CPT/HCPCS: 36415; 85025

== ENCOUNTER 2023-11-16 06:27 | Day surgery (SDC) | payer MEDICARE, MEDICAID, SELFPAY ==
[2023-11-15 11:14] VITALS: BMI 25.7
[2023-11-16 06:32] VITALS: BP 125/77; PULSE 69; RESP 18; TEMP 36.3; O2SAT 95
--- NOTE | 2023-11-16 06:51 | EXP.OP.NOTE ---
Date of procedure: 11/16/23 Pre-op Diagnosis:: Left breast abscess (1cm) Post-op Diagnosis:: Same Procedure performed:: Incision and drainage of left breast abscess Surgeon:: Satish Ugarte MD Anesthesia: local Estimated blood loss (mL): 5 Operative findings:: Left lateral areolar margin 1cm abscess with extension to the subcutaneous tissue Operative note:: After informed consent was obtained the patient was taken to the procedure room. His left breast was prepped and draped in a sterile fashion. After infiltration local anesthetic the central portion of the lesion was opened sharply. The small underlying pocket of purulence was opened. The wound was packed open and dressings were applied. Condition: stable Disposition: no change Specimens:: None Complications:: No immediate
[2023-11-16 07:08] VITALS: BP 101/55; PULSE 71; RESP 18; O2SAT 94
== END 2023-11-16 07:20 | disposition home or self-care (01) ==
PROVIDERS: PCP Family Medicine; Visit Provider Surgery
PROC: (CPT 10060; principal; 2023-11-16 07:00)
DX: N61.1 Abscess of the breast and nipple (principal)
CPT/HCPCS: 10060

== ENCOUNTER 2023-11-20 15:55 | Outpatient (CLI) | payer MEDICARE, MEDICAID, SELFPAY ==
--- NOTE | 2023-11-20 15:59 | XR_ITS ---
FINAL REPORT CLINICAL HISTORY: Right elbow mass COMPARISON: None FINDINGS: 2 views of the elbow were obtained. There is no acute fracture or dislocation. There is mild degenerative change. There are small calcifications in the region of the distal triceps tendon. There is soft tissue swelling overlying the olecranon which may represent olecranon bursitis or possible mass. IMPRESSION: Soft tissue swelling may represent olecranon bursitis or possible mass. Mild degenerative change without acute bony abnormality. Reviewed, Interpreted and Dictated by Noel Yi III, MD Transcribed by Leslie Odom Authenticated and . [facility]
== END 2023-11-20 23:59 | disposition home or self-care (01) ==
LOC: RAD 15:57
PROVIDERS: PCP Family Medicine; Visit Provider Internal Medicine Pulmonary Disease
DX: R22.31 Localized swelling, mass and lump, right upper limb (principal); M25.521 Pain in right elbow
CPT/HCPCS: 73070

== ENCOUNTER 2023-11-21 22:27 | Inpatient (IN) | payer MEDICARE, MEDICAID, SELFPAY ==
[2023-11-21 22:28] VITALS: BP 119/69; PULSE 88; RESP 34; TEMP 36.8; O2SAT 99; BMI 23.1
--- NOTE | 2023-11-21 22:39 | PC.NURSE ---
RT notified for breathing tx
--- NOTE | 2023-11-21 22:43 | ECG_ITS ---
APPROVED REPORT Exam: Resting ECG HR:91 bpm ECG Measurements Heart Rate 91 AXES MT 159 P 76 QRSd 104 QRS 263 QT 319 T 77 QTc 367 Conclusion SINUS RHYTHM WITH OCCASIONAL SUPRAVENTRICULAR PREMATURE COMPLEXES RIGHT AXIS DEVIATION [QRS AXIS > 100] PATTERN CONSISTENT WITH PULMONARY DISEASE ABNORMAL ECG UNCONFIRMED REPORT Electronically signed by : BRENDA LOYD, 11/22/2023 05:28:20
--- NOTE | 2023-11-21 22:57 | HMH.EDGENADL ---
Discharge Plan Disposition Patient Disposition: Admitted Clinical Impressions Clinical Impression: Acute on chronic respiratory failure with hypoxia and hypercapnia, COPD exacerbation, Pneumonia, Neutropenia Discharge ED Provider: Dayday Conde Adult HPI General Chief complaint: Shortness of Breath/Dyspnea Stated complaint: low oxygen, heart rate fluxuating Time Seen by Provider: 11/21/23 22:57 Mode of Arrival: Ambulatory Source of Information: Patient Limitations: No Limitations Description of Symptoms (Recalled from ER Triage Doc. by RN): pt came into ER with SOA and is currently being treated for lung cancer and a skin abcess which caused his treatment to be stopped currently. pt arrived and was 70%, immediately placed on nonrebreather and patient responded well. History of Present Illness HPI narrative: 68-year-old male with history of lung cancer, had 1 treatment of chemotherapy 1 month ago, COPD, paroxysmal A-fib, coronary artery disease, hypertension, hyperlipidemia, presents for shortness of breath. He is chronically on 3 L at home at night or while laying down. He reports that he has been more congested over the last couple of weeks. He denies any fever. He sometimes coughs up clear stuff. He reports that they were monitoring his oxygen and his heart rate today and his heart rate was going high and his oxygen was dropping so they presented to the emergency room. Per report, patient was satting in the 70s on arrival, improved with DuoNeb's and then nonrebreather by EMS. Related Data Home Medications Medication Instructions Recorded Confirmed allopurinol 300 mg tablet 300 mg PO DAILY GOUT 12/22/17 11/20/23 lovastatin 40 mg tablet 40 mg PO HS Cholesterol 12/22/17 11/20/23 aspirin 81 mg tablet,delayed 81 mg PO BID HEART HEALTH 08/24/20 11/20/23 release levothyroxine 150 mcg tablet 150 mcg PO DAILY thyroid 02/02/23 11/20/23 prochlorperazine maleate 10 mg 10 mg PO NEEDED PRN Stomach 02/16/23 11/20/23 tablet Upset spironolactone 25 mg tablet 25 mg PO DAILY 05/11/23 11/20/23 ondansetron 4 mg disintegrating 4 mg PO NEEDED PRN Nausea And 10/17/23 11/20/23 tablet Vomiting sulfamethoxazole 800 1 tab PO BID 11/14/23 11/20/23 mg-trimethoprim 160 mg tablet Previous Rx's Medication Instructions Recorded metoprolol succinate 25 mg See Rx Instructions .Route 03/14/23 tablet,extended release 24 hr .COMPLEX #30 tabs docusate sodium 100 mg capsule 100 mg PO DAILY #30 caps 03/29/23 (Colace) polyethylene glycol 3350 17 17 g PO DAILY PRN constipation 03/29/23 gram/dose oral powder (Miralax) #119 grams azelastine 137 mcg (0.1 %) nasal 2 spray intranasal HS 90 days #30 09/11/23 spray aerosol mL ipratropium 0.5 mg-albuterol 3 mg 3 ml inhalation QID PRN shortness 10/02/23 (2.5 mg base)/3 mL nebulization of breath or wheezing 90 days #360 soln mL fluticasone fur. 100 mcg-umeclid 1 inh inhalation DAILY 90 days #90 11/08/23 62.5 mcg-vilant 25 mcg ea inhalat.powder (Trelegy Ellipta) fluticasone propionate 50 2 spray intranasal DAILY 90 days 11/20/23 mcg/actuation nasal #16 grams spray,suspension (Flonase Allergy Relief) Allergies Allergy/AdvReac Type Severity Reaction Status Date / Time No Known Drug Allergies Allergy Unknown Unknown Verified 11/20/23 15:11 [NKDA] allergy reaction [facility] Disclaimer: The information contained in this section may have been updated after the patient was seen, as this information can be updated by other users. Medical History (Updated 11/22/23 @ 01:42 by Dayday Conde MD) Elbow mass Swelling Hilar lymphadenopathy Allergic rhinitis History of lung or bronchial cancer Mediastinal lymphadenopathy PAF (paroxysmal atrial fibrillation) COPD (chronic obstructive pulmonary disease) Dyspnea on exertion Malignant neoplasm of unspecified part of unspecified bronchus or lung Pulmonary emphysema Smoking greater than 30 pack years Tobacco abuse disorder Lung nodule Tobacco abuse counseling HAP (hospital-acquired pneumonia) Influenza A Acute on chronic respiratory failure with hypoxia and hypercapnia Tobacco abuse AAA (abdominal aortic aneurysm) Melanoma Thyroid disease Sinus problem History of radiation therapy History of chemotherapy Cataract Myocardial infarction Lung disease Pacemaker DVT (deep venous thrombosis) Cancer Atherosclerotic heart disease Hypotension HLD (hyperlipidemia) Abnormal EKG CAD (coronary artery disease) CHF (congestive heart failure) Gout Hypertension Hypothyroidism COPD exacerbation Surgical History H/O melanoma excision History of heart artery stent History of cardiac cath History of colonoscopy Family History Other AAA (abdominal aortic aneurysm) Coronary artery disease Gout Heart attack Hypertension Social History Smoking Status: Former smoker tobacco type: cigarettes packs per day: 1 alcohol intake: former substance use type: denies use 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ional status: retired and disabled Travel in the last 8 weeks: None household members: spouse housing: house lives independently: No marital status: education level: high school service: No custodial: No caffeine: No special honey needs: No agree to transfusion: No do you feel safe at home: Yes victim of physical abuse: No victim of emotional abuse: No victim of sexual abuse: No would you like helpful sources: No ROS Obtained: Yes All systems reviewed & no additional complaints except as documented Physical Exam General General appearance: alert and in no apparent distress Head Head exam: atraumatic and normocephalic Eye Eye exam: Present normal appearance, PERRL and EOMI ENT ENT exam: Present normal oropharynx and normal external ear exam Neck Neck exam: Present normal inspection and full ROM Chest Chest inspection: Present normal inspection and symmetric chest wall rise; Absent tenderness Respiratory Respiratory exam: Present respiratory distress, wheezes, prolonged expiratory phase and other (Tachypnea) Cardiovascular Cardiovascular exam: Present regular rate and normal rhythm Abdominal Exam Abdominal exam: Present soft; Absent distention, tenderness or guarding Extremities Exam Extremities exam: Present normal inspection; Absent edema or joint swelling Back Exam Back exam: Present normal inspection; Absent tenderness Neurological Exam Neurological exam: Present alert and oriented X3; Absent motor sensory deficit Psychiatric Psychiatric exam: Present normal affect and normal mood Skin Skin exam: Present warm, dry and normal color Lymphatic Lymphatic Findings: no adenopathy Medical Decision Making Medical Records Medical records reviewed: Yes I reviewed the patient's medical records. Lanre Inquiry Pt receiving controlled substance: No Lanre was queried for this patient: No Vital Signs: 11/21/23 22:28 11/21/23 23:00 11/21/23 23:30 Temperature 98.2 F Temperature Source Oral Pulse Rate 88 Pulse Rate [Right Radial] 88 Respiratory Rate 34 H 22 34 H Blood Pressure 127/62 121/63 Blood Pressure [Right Arm] 119/69 Blood Pressure Mean [Right Arm] 85 Blood Pressure Source Blood Pressure Position 02 Sat by Pulse Oximetry 99 99 Oxygen Delivery Method Room Air Oxygen Flow Rate (LPM) 11/22/23 00:00 11/22/23 00:30 11/22/23 01:00 Temperature Temperature Source Pulse Rate 89 88 101 H Pulse Rate [Right Radial] Respiratory Rate 33 H 39 H 41 H Blood Pressure 136/65 136/71 148/74 H Blood Pressure [Right Arm] Blood Pressure Mean [Right Arm] Blood Pressure Source Blood Pressure Position 02 Sat by Pulse Oximetry 91 L 92 L 92 L Oxygen Delivery Method Oxygen Flow Rate (LPM) 11/22/23 01:31 11/22/23 01:54 Temperature 98.2 F Temperature Source Oral Pulse Rate 96 H 104 H Pulse Rate [Right Radial] Respiratory Rate 36 H 38 H Blood Pressure 153/75 H 153/75 H Blood Pressure [Right Arm] Blood Pressure Mean [Right Arm] Blood Pressure Source Automatic Cuff Blood Pressure Position Sitting 02 Sat by Pulse Oximetry 96 Oxygen Delivery Method Nasal Cannula Oxygen Flow Rate (LPM) 3 Lab Data Lab results reviewed: Yes I reviewed the patient's lab results. Lab Results 11/21/23 22:30: SARS-CoV-2 (PCR) Not detected, Influenza A Untype (PCR) Not detected, Influenza Type B (PCR) Not detected 11/21/23 22:43: WBC 2.8 L, RBC 4.45 L, Hgb 14.2, Hct 45.0, MCV 101.3 H, MCH 31.9 H, MCHC 31.5 L, RDW 17.1, Plt Count 109 L, MPV 8.8, Neut % (Auto) 50.8, Lymph % (Auto) 30.5, Calvert % (Auto) 18.2 H, Eos % (Auto) 0.5, Baso % (Auto) 6.9 H, Neut # (Auto) 1.4 L, Lymph # (Auto) 0.9, Calvert # (Auto) 0.5, Eos # (Auto) 0.0, Baso # (Auto) 0.2, D-Dimer 0.87 H, Sodium 131 L, Potassium 5.0, Chloride 89 L, Carbon Dioxide 35 H, Anion Gap 12.0, BUN 9, Creatinine 0.70, Estimated Creat Clear 65, Estimated GFR 111, Est GFR ( Amer) 135, Glucose 88, Calcium 8.9, Total Bilirubin 0.8, AST 34, ALT 13, Alkaline Phosphatase 83, Troponin I < 0.01, NT-Pro-B Natriuret Pep 915 H, Total Protein 7.4, Albumin 4.0, Globulin 3.4 H, Albumin/Globulin Ratio 1.2 11/21/23 23:07: VBG pH 7.30 L, VBG pCO2 67.7 H, VBG pO2 25.5 L, VBG HCO3 32.3 H, VBG Total CO2 34.3 H, VBG O2 Saturation 52.1, VBG Base Excess 5.8 H, VBG Lactic Acid 1.2 11/21/23 22:43 11/21/23 22:43 Orders (Tests/Meds): ED MEDICATIONS Generic Name Dose Route Start Last Admin Trade Name Freq PRN Reason Stop Dose Admin Acetaminophen 650 mg 11/22/23 02:46 Acetaminophen 325mg Tab PO 12/22/23 02:45 Q6HP PRN Fever or Mild Pain (1-3) Vancomycin/PEG/NADA/Lysine/Water 1.25 gm in 250 mls @ 125 mls/hr 11/22/23 01:15 11/22/23 02:31 Vancomycin 1.25gm/250ml (Peg) Premix IV 11/22/23 03:14 125 mls/hr ONCE ONE Administration Vancomycin HCl 750 mg/ Sodium 250 mls @ 250 mls/hr 11/22/23 13:00 Chloride IV 12/02/23 12:59 Q12H TITO Miscellaneous 1 each 11/22/23 01:00 11/22/23 01:04 Vancomycin Consult Request NOTAPPLIC 12/22/23 00:59 1 each CONSULT PHARMACY TITO Administration Sodium Chloride 3 ml 11/22/23 00:57 Sodium Chloride 3% 15ml On license of [facility] 12/22/23 00:56 ONCE PRN INDUCE SPUTUM COLLECTION Discontinued Medications Generic Name Dose Route Start Last Admin Trade Name Freq PRN Reason Stop Dose Admin Albuterol Sulfate 10 mg 11/22/23 00:57 11/22/23 01:22 Albuterol 0.083% 2.5 Mg/3 Ml Neb 11/22/23 00:58 10 mg ONCE ONE Administration Magnesium Sulfate 2 gm in 50 mls @ 50 mls/hr 11/21/23 23:05 11/21/23 23:25 Magnesium Sulfate 2gm/50ml Premix IV 11/22/23 00:04 50 mls/hr ONCE ONE Administration Piperacillin Sod/Tazobactam 100 mls @ 200 mls/hr 11/22/23 00:57 11/22/23 01:21 Sod 4.5 gm/ Sodium Chloride IV 11/22/23 01:26 Not Given ONCE ONE Piperacillin Sod/Tazobactam 100 mls @ 200 mls/hr 11/22/23 01:23 11/22/23 01:26 Sod 4.5 gm/ Sodium Chloride IV 11/22/23 01:52 200 mls/hr ONCE ONE Administration Methylprednisolone Sodium Succinate 125 mg 11/22/23 00:19 11/22/23 01:24 Methylprednisolone Sod Succ 125mg Vial IV 11/22/23 00:20 125 mg ONCE ONE Administration ORDERS Category Date Time Status CXR --portable [XR chest portable] Stat Exams 11/21/23 23:05 Completed BNP [NT Pro Brain Natriuretic Pep.] Stat Lab 11/21/23 22:43 Completed CBC w/Auto Diff [Complete Blood Count Auto Diff] Stat Lab 11/21/23 22:43 Completed CMP [Comprehensive Metabolic Panel] Stat Lab 11/21/23 22:43 Completed D-Dimer Stat Lab 11/21/23 22:43 Completed Rapid PCR Covid and Flu A/B Stat Lab 11/21/23 22:30 Completed Troponin I Q3H Lab 11/21/23 22:43 Completed Troponin I Q3H Lab 11/22/23 02:25 Received Sputum Culture & Gram Stain Stat Micro 11/22/23 00:57 Ordered VBG [Venous Blood Gas] Stat RT 11/21/23 23:07 Completed Medical Decision Narrative: 68-year-old male with history of lung cancer status post 1 round of chemotherapy, COPD on chronic 3 L nasal cannula at home at night presents with worsening shortness of breath at home today.. History was obtained interactive discussion with patient, family, chart review. On arrival, patient is afebrile, tachypneic, requiring nonrebreather to maintain sats greater than 90, moving all extremities spontaneously. Full physical exam performed and significant for tachypnea, diminished breath sounds and wheezing bilaterally. Differential includes but is not limited to COPD exacerbation, pneumonia, PE, pulmonary edema. Patient was given DuoNeb's x 2, 2 g IV magnesium for symptomatic management and correction of underlying abnormalities. Workup initiated including COVID flu swab, VBG CBC CMP D-dimer BNP troponin chest x-ray EKG. On re-evaluation, patient reports marked symptomatic improvement. After DuoNebs patient is now on 3 L nasal cannula satting greater than 90%. No longer tachypneic, lung sounds improved though still has trace wheezing. Laboratory workup independently interpreted by me and significant for mild respiratory acidosis and hypercarbia on VBG. Labs also significant for mild thrombocytopenia and neutropenia, consistent with patient's history of cancer treatment. Minimal hyponatremia, negative initial troponin, BNP down from prior. Imaging independently interpreted by me and significant for bilateral lower lobe opacities concerning for pneumonia. See radiology read for full review of final results. EKG independently interpreted by me and significant for sinus rhythm with occasional PACs, no concerning ST changes rate of 91, normal intervals. On further reassessment, patient is dropping into the 80s on his home 2 L nasal cannula. Patient was started on albuterol nebulizer treatment. Given patient history, exam and workup, patient's presentation most likely represents acute on chronic hypoxic and hypercarbic respiratory failure and COPD exacerbation in the setting of pneumonia. Patient was initiated on vancomycin and Zosyn for empiric coverage of pneumonia given immunocompromise state. Interactive discussion was had with Dr. Garland on-call who accepted patient on behalf of Dr. Wang. Patient was admitted in stable condition. Procedures Risk/Benefits of Procedure(s) Were Explained: Yes Critical Care Critical Care Time Critical Care Time: Yes Attestation: On 11/21/23, the high probability of a clinically significant, sudden or life threatening deterioration of the following system(s) respiratory required my full and direct attention, intervention and personal management. The time I documented below is in addition to time spent performing reported procedures but includes the following listed in this critical care notation. Total Time Total Critical Care Time: 40
[2023-11-21 23:00] VITALS: BP 127/62; PULSE 88; RESP 22; O2SAT 99
--- NOTE | 2023-11-21 23:05 | XR_ITS ---
PROCEDURE INFORMATION: Exam: XR Chest Exam date and time: 11/21/2023 11:57 PM Age: 68 years old Clinical indication: Shortness of breath; Additional info: SOA, HX lung cancer TECHNIQUE: Imaging protocol: Radiologic exam of the chest. Views: 1 view. COMPARISON: CR XR CHEST PORTABLE 09/04/2023 1:23 PM FINDINGS: Lungs: Interstitial airspace disease in bilateral mid and lower lung zones concerning for pneumonia Pleural spaces: Unremarkable. No pleural effusion. No pneumothorax. Heart/Mediastinum: Unremarkable. No cardiomegaly. Bones/joints: Unremarkable. IMPRESSION: Bilateral lower lobe pneumonia
[2023-11-21 23:12] LABS: Coronavirus 19, PCR Not Detected (NotDetected); Influenza A, PCR Not Detected (NotDetected); Influenza B, PCR Not Detected (NotDetected)
[2023-11-21 23:14] LABS: Basophils # 0.2 K/mm3 (0-0.2); Basophils % 6.9 % (0.1-2.0); Eosinophils % 0.5 % (0.1-12.0); Hemoglobin 14.2 g/dL (14.1-18.0); Lymphocytes # 0.9 K/mm3 (0.7-4.5); Lymphocytes % 30.5 % (10-50); Mean Corpuscular HGB Conc 31.5 g/dL (31.8-35.4); Mean Corpuscular Hemoglobin 31.9 pg (27.0-31.2); Mean Corpuscular Volume 101.3 fl (80-94); Mean Platelet Volume 8.8 fl (7.4-10.4); Monocytes # 0.5 K/mm3 (0.1-1.0); Monocytes % 18.2 % (1.7-9.3); Neutrophils # 1.4 K/mm3 (1.8-7.8); Neutrophils % 50.8 % (37.0-80.0); Platelet Count 109 K/mm3 (142-424); Red Blood Count 4.45 M/mm3 (4.60-6.20); Red Cell Distribution Width 17.1 % (11.5-17.5); White Blood Count 2.8 K/mm3 (4.8-10.8)
[2023-11-21 23:14] LABS: Lactate Venous 1.2 mmol/L (0.4-2.0); VBG Base Excess 5.8 mmol/L (-2.4-2.3); VBG HCO3 32.3 mmol/L (23-30); VBG Oxygen Saturation 52.1 % (50-70); VBG PCO2 67.7 mmol/L (35-51); VBG PO2 25.5 mmol/L (28-40); VBG Total CO2 34.3 mmol/L (23-27)
[2023-11-21 23:19] LABS: Alanine Aminotransferase 13 U/L (12-78); Albumin/Globulin Ratio 1.2 (1.1-1.8); Alkaline Phosphatase 83 U/L (38-126); Aspartate Amino Transferase 34 U/L (17-59); Bilirubin,Total 0.8 mg/dl (0.2-1.3); Blood Urea Nitrogen 9 mg/dl (9-20); Calcium 8.9 mg/dl (8.4-10.2); Carbon Dioxide 35 mmol/L (22.0-30.0); Chloride 89 mmol/L (98-107); Creatinine Clearance Estimated 65 mL/min (50-200); Estimated Glomerular Filt Rate 111 ml/min (>60); GFR (African American) 135 ML/MIN (>60); Globulin 3.4 g/dL (1.3-3.2); Glucose 88 mg/dl (74-100); Sodium 131 mmol/L (136-145); Total Protein,Serum 7.4 g/dl (6.3-8.2)
[2023-11-21 23:24] LABS: D-Dimer 0.87 ug/mL (0.0-0.5)
[2023-11-21] MEDS: MAGNESIUM SULFATE IN WATER 2 GM/50 ML PIGGYBACK IV (23:25)
[2023-11-21 23:30] VITALS: BP 121/63; RESP 34
[2023-11-21 23:32] LABS: NT Pro Brain Natriuretic Pep. 915 pg/mL (0-125)
[2023-11-21 23:40] LABS: Troponin I < 0.01 ng/ml (0.00-0.034)
[2023-11-22] VITALS (12 sets, daily range): BP systolic 107–158; BP diastolic 59–75; PULSE 63–104; RESP 16–41; TEMP 36.6–37; O2SAT 91–98; BMI 25.9
[2023-11-22] MEDS: VANCOMYCIN CONSULT REQUEST 1 EACH NOTAPPLIC (01:04)
--- NOTE | 2023-11-22 01:06 | PC.NURSE ---
contacted [facility], spoke with brannon for dosage. he will put in. paged on-call for dr murphy
--- NOTE | 2023-11-22 01:11 | PC.NURSE ---
called rt for albuterol tx
[2023-11-22] MEDS: ALBUTEROL 0.083% 2.5 MG/3 ML NEB 10 MG IH (01:22)
[2023-11-22] MEDS: METHYLPREDNISOLONE SOD SUCC 125MG VIAL 125 MG IV (01:24)
[2023-11-22] MEDS: PIPERACILLIN/TAZO 4.5 GM in 0.9 % SODIUM CHLORIDE 100 ML IV (01:26)
--- NOTE | 2023-11-22 01:28 | PC.NURSE ---
paged dr babin @[phone] and again at [phone]
--- NOTE | 2023-11-22 01:34 | PC.NURSE ---
paged dr babin (nutrition instructor for pcp)
--- NOTE | 2023-11-22 01:34 | PC.NURSE ---
ED doctor on phone with Dr. Garland re: admission
--- NOTE | 2023-11-22 01:35 | PC.NURSE ---
bottle house pumper notified for bed placement
--- NOTE | 2023-11-22 01:40 | PC.NURSE ---
attempted to call report at this time
--- NOTE | 2023-11-22 01:52 | PC.NURSE ---
report called to monika jones rn at this time
[2023-11-22] MEDS: VANCOMYCIN/WATER FOR INJ (PEG) 1.25 GM/250 ML PIGGYBACK IV ×2 (02:31→20:15)
[2023-11-22 03:15] LABS: Troponin I < 0.01 ng/ml (0.00-0.034)
--- NOTE | 2023-11-22 07:47 | EXP.PHA.CONS ---
Pharmacy Consult Date: 11/22/23 Time: 07:47 Referring provider: DR LOYD Reason for Consult:: VANCOMYCIN DOSING CONSULT Allergies Allergy/AdvReac Type Severity Reaction Status Date / Time No Known Drug Allergies Allergy Unknown Unknown Verified 11/20/23 15:11 [NKDA] allergy reaction Home Medications Medication Instructions Recorded Confirmed Type allopurinol 300 mg tablet 300 mg PO DAILY GOUT 12/22/17 11/20/23 History lovastatin 40 mg tablet 40 mg PO HS Cholesterol 12/22/17 11/20/23 History aspirin 81 mg tablet,delayed 81 mg PO BID HEART HEALTH 08/24/20 11/20/23 History release levothyroxine 150 mcg tablet 150 mcg PO DAILY thyroid 02/02/23 11/20/23 History prochlorperazine maleate 10 mg 10 mg PO NEEDED PRN Stomach 02/16/23 11/20/23 History tablet Upset metoprolol succinate 25 mg See Rx Instructions .Route 03/14/23 11/20/23 Rx tablet,extended release 24 hr .COMPLEX #30 tabs docusate sodium 100 mg capsule 100 mg PO DAILY #30 caps 03/29/23 11/20/23 Rx (Colace) polyethylene glycol 3350 17 17 g PO DAILY PRN constipation 03/29/23 11/20/23 Rx gram/dose oral powder (Miralax) #119 grams spironolactone 25 mg tablet 25 mg PO DAILY 05/11/23 11/20/23 History azelastine 137 mcg (0.1 %) nasal 2 spray intranasal HS 90 days #30 09/11/23 11/20/23 Rx spray aerosol mL ipratropium 0.5 mg-albuterol 3 mg 3 ml inhalation QID PRN shortness 10/02/23 11/20/23 Rx (2.5 mg base)/3 mL nebulization of breath or wheezing 90 days #360 soln mL ondansetron 4 mg disintegrating 4 mg PO NEEDED PRN Nausea And 10/17/23 11/20/23 History tablet Vomiting fluticasone fur. 100 mcg-umeclid 1 inh inhalation DAILY 90 days #90 11/08/23 11/20/23 Rx 62.5 mcg-vilant 25 mcg ea inhalat.powder (Trelegy Ellipta) sulfamethoxazole 800 1 tab PO BID 11/14/23 11/20/23 History mg-trimethoprim 160 mg tablet fluticasone propionate 50 2 spray intranasal DAILY 90 days 11/20/23 11/20/23 Rx mcg/actuation nasal #16 grams spray,suspension (Flonase Allergy Relief) New Prescriptions to Start Prescriptions: Height: 1.7 m Weight: 75.07 kg Laboratory Results:: Laboratory Results - last 24 hr 11/21/23 22:30: SARS-CoV-2 (PCR) Not detected, Influenza A Untype (PCR) Not detected, Influenza Type B (PCR) Not detected 11/21/23 22:43: WBC 2.8 L, RBC 4.45 L, Hgb 14.2, Hct 45.0, MCV 101.3 H, MCH 31.9 H, MCHC 31.5 L, RDW 17.1, Plt Count 109 L, MPV 8.8, Neut % (Auto) 50.8, Lymph % (Auto) 30.5, [place] % (Auto) 18.2 H, Eos % (Auto) 0.5, Baso % (Auto) 6.9 H, Neut # (Auto) 1.4 L, Lymph # (Auto) 0.9, [place] # (Auto) 0.5, Eos # (Auto) 0.0, Baso # (Auto) 0.2, D-Dimer 0.87 H, Sodium 131 L, Potassium 5.0, Chloride 89 L, Carbon Dioxide 35 H, Anion Gap 12.0, BUN 9, Creatinine 0.70, Estimated Creat Clear 65, Estimated GFR 111, Est GFR ( Amer) 135, Glucose 88, Calcium 8.9, Total Bilirubin 0.8, AST 34, ALT 13, Alkaline Phosphatase 83, Troponin I < 0.01, NT-Pro-B Natriuret Pep 915 H, Total Protein 7.4, Albumin 4.0, Globulin 3.4 H, Albumin/Globulin Ratio 1.2 11/21/23 23:07: VBG pH 7.30 L, VBG pCO2 67.7 H, VBG pO2 25.5 L, VBG HCO3 32.3 H, VBG Total CO2 34.3 H, VBG O2 Saturation 52.1, VBG Base Excess 5.8 H, VBG Lactic Acid 1.2 11/22/23 02:25: Troponin I < 0.01 Medical History: Medical History (Updated 11/22/23 @ 01:42 by Dayday Loyd MD) Elbow mass Swelling Hilar lymphadenopathy Allergic rhinitis History of lung or bronchial cancer Mediastinal lymphadenopathy PAF (paroxysmal atrial fibrillation) COPD (chronic obstructive pulmonary disease) Dyspnea on exertion Malignant neoplasm of unspecified part of unspecified bronchus or lung Pulmonary emphysema Smoking greater than 30 pack years Tobacco abuse disorder Lung nodule Tobacco abuse counseling HAP (hospital-acquired pneumonia) Influenza A Acute on chronic respiratory failure with hypoxia and hypercapnia Tobacco abuse AAA (abdominal aortic aneurysm) Melanoma Thyroid disease Sinus problem History of radiation therapy History of chemotherapy Cataract Myocardial infarction Lung disease Pacemaker DVT (deep venous thrombosis) Cancer Atherosclerotic heart disease Hypotension HLD (hyperlipidemia) Abnormal EKG CAD (coronary artery disease) CHF (congestive heart failure) Gout Hypertension Hypothyroidism COPD exacerbation Assessment and Plan Assessment and plan all Dx Assessment and Plan for all problems:: Pharmacokinetic dosing service Objective: Age: 68 yo Serum creatinine: 1 mg/dL Height: 66.9 Inches Weight (kg): 75.07 Diagnosis: PNEUMONIA/COPD EXACERBATION Assessment: IBW (kg): 65.87 Dosing wt(kg): 75.07 Estimated Creatinine clearance (ml/min): 64.0 CRCL method: Cockcroft and Gault using ibw(default). Drug selected: Vancomycin Vd (liters): 52.5 (factor used: 0.7 L/kg) Jerardo (hr-1): 0.058 Half life (hrs): 11.95 CLvanco=?? 3.045 L/hr Recommended dose: 1250 mg Interval: 18 hrs Infusion time (hrs): 2.0 Predicted peak (mcg/mL): 34.7 Predicted trough (mcg/mL): 13.72 Total body weight is being used for vancomycin dosing. Recommendations: Give Vancomycin 1250 mg q 18 hrs with an expected Cpeak of 34.7 mcg/ml and an expected Ctrough of 13.72 mcg/ml AUC 0-24 /ANNA Data: ANNA 0.5 mcg/mL:?? AUC/ANNA:? 1094.7 ANNA 1.0 mcg/mL:?? AUC/ANNA:? 547.3 --------- ANNA 1.5 mcg/mL:?? AUC/ANNA:? 364.9 ANNA 2.0 mcg/mL:?? AUC/ANNA:? 273.7 Thank you for the consult
--- NOTE | 2023-11-22 08:47 | EXP.HP ---
History of Present Illness *Admission Date: 11/21/23 *Reason for visit:: cough, SOA *History of present illness: 68-year-old male with history of lung cancer, had 1 treatment of chemotherapy 1 month ago, COPD, paroxysmal A-fib, coronary artery disease, hypertension, hyperlipidemia, presents for shortness of breath. He is chronically on 3 L at home at night or while laying down. He reports that he has been more congested over the last couple of weeks. He denies any fever. He sometimes coughs up clear stuff. He reports that they were monitoring his oxygen and his heart rate today and his heart rate was going high and his oxygen was dropping so they presented to the emergency room. Per report, patient was satting in the 70s on arrival, improved with DuoNeb's and then nonrebreather by EMS. (above as per ER physician) Of note, patient states he had a cyst removed from his left breast by Dr. Ugarte approximately a week ago as it was infected. This is why he was unable to have his last chemo. His has been replacing the packing at home. [facility] Disclaimer: The information contained in this section may have been updated after the patient was seen, as this information can be updated by other users. Medical History Elbow mass Swelling Hilar lymphadenopathy Allergic rhinitis History of lung or bronchial cancer Mediastinal lymphadenopathy PAF (paroxysmal atrial fibrillation) COPD (chronic obstructive pulmonary disease) Dyspnea on exertion Malignant neoplasm of unspecified part of unspecified bronchus or lung Pulmonary emphysema Smoking greater than 30 pack years Tobacco abuse disorder Lung nodule Tobacco abuse counseling HAP (hospital-acquired pneumonia) Influenza A Acute on chronic respiratory failure with hypoxia and hypercapnia Tobacco abuse AAA (abdominal aortic aneurysm) Melanoma Thyroid disease Sinus problem History of radiation therapy History of chemotherapy Cataract Myocardial infarction Lung disease Pacemaker DVT (deep venous thrombosis) Cancer Atherosclerotic heart disease Hypotension HLD (hyperlipidemia) Abnormal EKG CAD (coronary artery disease) CHF (congestive heart failure) Gout Hypertension Hypothyroidism COPD exacerbation Surgical History H/O melanoma excision History of heart artery stent History of cardiac cath History of colonoscopy Family History Gout Coronary artery disease AAA (abdominal aortic aneurysm) Heart attack Hypertension Social History Smoking Status: Former smoker tobacco type: cigarettes packs per day: 1 alcohol intake: former substance use type: denies use 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ional status: retired and disabled Travel in the last 8 weeks: None household members: spouse housing: house lives independently: No marital status: education level: high school service: No intermediate: No caffeine: No special honey needs: No agree to transfusion: No do you feel safe at home: Yes victim of physical abuse: No victim of emotional abuse: No victim of sexual abuse: No would you like helpful sources: No Review of Systems Constitutional Constitutional: Reports fatigue, Reports headache(s) and Reports weakness Eyes Eyes: Denies blurry vision and Denies diplopia ENT Ears, Nose, Mouth, and Throat: Reports headache(s), Denies nasal congestion, Denies sore throat and Reports vertigo *Cardiovascular Cardiovascular: Denies chest pain, Reports dyspnea and Denies leg edema *Respiratory Respiratory: Reports cough, Reports dyspnea and Reports wheezing *Gastrointestinal Gastrointestinal: Denies abdominal pain, Denies loose stools, Denies nausea and Denies vomiting *Genitourinary Genitourinary: Denies difficulty urinating and Denies dysuria *Musculoskeletal Musculoskeletal: Denies arthralgias and Denies myalgias *Neurologic Neurologic: Reports headache(s), Reports vertigo and Reports weakness Endocrine Endocrine: Reports fatigue Allergic/Immunologic Allergic/Immunologic: Reports wheezing Meds Home Medications and Allergies Home Medications Medication Instructions Recorded Confirmed Type allopurinol 300 mg tablet 300 mg PO DAILY 12/22/17 11/22/23 History lovastatin 40 mg tablet 40 mg PO HS 12/22/17 11/22/23 History aspirin 81 mg tablet,delayed 81 mg PO BID HEART HEALTH 08/24/20 11/20/23 History release levothyroxine 150 mcg tablet 150 mcg PO DAILY thyroid 02/02/23 11/22/23 History docusate sodium 100 mg capsule 100 mg PO DAILY #30 caps 03/29/23 11/20/23 Rx (Colace) polyethylene glycol 3350 17 17 g PO DAILY PRN constipation 03/29/23 11/20/23 Rx gram/dose oral powder (Miralax) #119 grams spironolactone 25 mg tablet 25 mg PO DAILY 05/11/23 11/22/23 History azelastine 137 mcg (0.1 %) nasal 2 spray intranasal HS 90 days #30 09/11/23 11/22/23 Rx spray aerosol mL fluticasone fur. 100 mcg-umeclid 1 inh inhalation DAILY 90 days #90 11/08/23 11/22/23 Rx 62.5 mcg-vilant 25 mcg ea inhalat.powder (Trelegy Ellipta) fluticasone propionate 50 2 spray intranasal DAILY 90 days 11/20/23 11/20/23 Rx mcg/actuation nasal #16 grams spray,suspension (Flonase Allergy Relief) ipratropium 0.5 mg-albuterol 3 mg 3 ml inhalation QIDP PRN shortness 11/22/23 11/22/23 History (2.5 mg base)/3 mL nebulization of breath or wheezing soln metoprolol succinate 25 mg 25 mg PO HS 11/22/23 11/22/23 History tablet,extended release 24 hr New Prescriptions to Start Prescriptions: Allergies Allergy/AdvReac Type Severity Reaction Status Date / Time No Known Drug Allergies Allergy Unknown Unknown Verified 11/20/23 15:11 [NKDA] allergy reaction Exam Data for Last 24 hours Vital signs and Labs for Last 24 Hours: Temp Pulse Resp BP Pulse Ox O2 Del Method O2 Flow Rate 98.1 F 99 H 16 110/60 96 Nasal Cannula 3 11/22/23 07:49 11/22/23 07:49 11/22/23 07:49 11/22/23 07:49 11/22/23 07:49 11/22/23 07:53 11/22/23 07:53 FiO2 32 11/22/23 03:50 Laboratory Results - last 24 hr 11/21/23 22:30: SARS-CoV-2 (PCR) Not detected, Influenza A Untype (PCR) Not detected, Influenza Type B (PCR) Not detected 11/21/23 22:43: WBC 2.8 L, RBC 4.45 L, Hgb 14.2, Hct 45.0, MCV 101.3 H, MCH 31.9 H, MCHC 31.5 L, RDW 17.1, Plt Count 109 L, MPV 8.8, Neut % (Auto) 50.8, Lymph % (Auto) 30.5, [place] % (Auto) 18.2 H, Eos % (Auto) 0.5, Baso % (Auto) 6.9 H, Neut # (Auto) 1.4 L, Lymph # (Auto) 0.9, [place] # (Auto) 0.5, Eos # (Auto) 0.0, Baso # (Auto) 0.2, D-Dimer 0.87 H, Sodium 131 L, Potassium 5.0, Chloride 89 L, Carbon Dioxide 35 H, Anion Gap 12.0, BUN 9, Creatinine 0.70, Estimated Creat Clear 65, Estimated GFR 111, Est GFR ( Amer) 135, Glucose 88, Calcium 8.9, Total Bilirubin 0.8, AST 34, ALT 13, Alkaline Phosphatase 83, Troponin I < 0.01, NT-Pro-B Natriuret Pep 915 H, Total Protein 7.4, Albumin 4.0, Globulin 3.4 H, Albumin/Globulin Ratio 1.2 11/21/23 23:07: VBG pH 7.30 L, VBG pCO2 67.7 H, VBG pO2 25.5 L, VBG HCO3 32.3 H, VBG Total CO2 34.3 H, VBG O2 Saturation 52.1, VBG Base Excess 5.8 H, VBG Lactic Acid 1.2 11/22/23 02:25: Troponin I < 0.01 I & O for Last 24 hours: Intake & Output 11/19/23 11/20/23 11/21/23 11/22/23 11:59 11:59 11:59 11:59 Intake Total 480 / 480 Balance 480 / 480 Weight 165 lb 8 oz Constitutional Constitutional: no acute distress *Routine HEENT Exam Head: Present normocephalic and atraumatic Eye: Present EOMI and PERRL ENT: Present mucous membranes moist *Routine Neck Exam Neck: Present supple and full ROM *Routine Respiratory Exam Respiratory: Present rales (bibasilar) and wheezes *Routine Cardiovascular Exam Cardiovascular: Present RRR *Routine Abdominal Exam Abdominal: Present soft and normoactive bowel sounds; Absent tenderness *Routine Rectal Exam Rectal:: deferred *Routine Genitalia Exam Genitalia:: deferred *Routine Extremities Exam Extremities: Absent cyanosis, clubbing or edema *Routine Skin Exam Skin: Present intact; Absent erythema *Routine Neurological Exam Neurological: Present alert and oriented X3 H&P: Result Impressions Elbow x-ray - Soft tissue swelling may represent olecranon bursitis or possible mass. Mild degenerative change without acute bony abnormality. CXR - Bilateral lower lobe pneumonia Assessment and Plan *Assessment and plan (1) Pneumonia: Status: Acute Qualifiers: Laterality: bilateral Category: Medical Code(s): J18.9 - Pneumonia, unspecified organism (2) Neutropenia: Status: Acute Category: Medical Code(s): D70.9 - Neutropenia, unspecified (3) Elbow mass: Status: Acute Category: Medical Code(s): R22.30 - Localized swelling, mass and lump, unspecified upper limb (4) Left breast abscess: Status: Acute Category: Medical Code(s): N61.1 - Abscess of the breast and nipple (5) History of ASCVD: Status: Chronic Category: Medical Code(s): Z86.79 - Personal history of other diseases of the circulatory system (6) Malignant neoplasm of lung: Status: Acute Qualifiers: Laterality: unspecified laterality Lung location: overlapping sites Qualified Code(s): C34.80 - Malignant neoplasm of overlapping sites of unspecified bronchus and lung Category: Medical Code(s): C34.90 - Malignant neoplasm of unspecified part of unspecified bronchus or lung (7) Mediastinal lymphadenopathy: Status: Acute Category: Medical Code(s): R59.0 - Localized enlarged lymph nodes (8) PAF (paroxysmal atrial fibrillation): Status: Acute Category: Medical Code(s): I48.0 - Paroxysmal atrial fibrillation (9) COPD (chronic obstructive pulmonary disease): Status: Chronic Qualifiers: COPD type: emphysema Emphysema type: unspecified Qualified Code(s): J43.9 - Emphysema, unspecified Category: Medical Code(s): J44.9 - Chronic obstructive pulmonary disease, unspecified (10) Smoking greater than 30 pack years: Status: Chronic Category: Social Hx Code(s): F17.210 - Nicotine dependence, cigarettes, uncomplicated (11) Hypertension: Status: Chronic Qualifiers: Hypertension type: essential hypertension Qualified Code(s): I10 - Essential (primary) hypertension Category: Medical Code(s): I10 - Essential (primary) hypertension (12) HLD (hyperlipidemia): Status: Chronic Qualifiers: Hyperlipidemia type: mixed hyperlipidemia Qualified Code(s): E78.2 - Mixed hyperlipidemia Category: Medical Code(s): E78.5 - Hyperlipidemia, unspecified (13) CHF (congestive heart failure): Status: Chronic Qualifiers: Heart failure chronicity: chronic Heart failure type: diastolic Qualified Code(s): I50.32 - Chronic diastolic (congestive) heart failure Category: Medical Code(s): I50.9 - Heart failure, unspecified (14) CAD (coronary artery disease): Status: Chronic Qualifiers: Associated angina: without angina Coronary Disease-Associated Artery/Lesion type: [place] artery [place] vs. transplanted heart: [place] heart Qualified Code(s): I25.10 - Atherosclerotic heart disease of [place] coronary artery without angina pectoris Category: Medical Code(s): I25.10 - Atherosclerotic heart disease of [place] coronary artery without angina pectoris Plan Patient was started on IV antibiotics and was given a dose of steroids. He is less SOA this am. Will discuss further care with Dr. Wang and await sputum culture. Will also consult Dr. Ugarte for the breast abscess as he will likely need packing changes. Dr. Wang entry - Saw patient, agree with above note. Continue treatment for bilateral pneumonia
[2023-11-22] MEDS: ENOXAPARIN 40MG/0.4ML SYRINGE 40 MG SQ (09:57)
[2023-11-22] MEDS: ASPIRIN EC 81MG TABLET 81 MG PO ×2 (09:57→20:16)
[2023-11-22] MEDS: ALLOPURINOL 300MG TABLET 300 MG PO (09:57)
[2023-11-22] MEDS: LEVOTHYROXINE 150MCG (0.15MG)TAB 150 MCG PO (09:57)
--- NOTE | 2023-11-22 10:44 | EXP.SURG.CON ---
History of Present Illness *Admission Date: 11/21/23 *Reason for visit:: Left breast wound *History of present illness: This is a 68-year-old gentleman seen in consultation regarding left breast wound care. He is status post incision and drainage of focal abscess on November 16, 2023. He has subsequently been admitted for COPD exacerbation. He is undergoing dry dressing changes and is without complaint with regard to his wound. Forwarded from admission H&P: 68-year-old male with history of lung cancer, had 1 treatment of chemotherapy 1 month ago, COPD, paroxysmal A-fib, coronary artery disease, hypertension, hyperlipidemia, presents for shortness of breath. He is chronically on 3 L at home at night or while laying down. He reports that he has been more congested over the last couple of weeks. He denies any fever. He sometimes coughs up clear stuff. He reports that they were monitoring his oxygen and his heart rate today and his heart rate was going high and his oxygen was dropping so they presented to the emergency room. Per report, patient was satting in the 70s on arrival, improved with DuoNeb's and then nonrebreather by EMS. (above as per ER physician) Of note, patient states he had a cyst removed from his left breast by Dr. Ugarte approximately a week ago as it was infected. This is why he was unable to have his last chemo. His has been replacing the packing at home. [facility] Disclaimer: The information contained in this section may have been updated after the patient was seen, as this information can be updated by other users. Medical History Elbow mass Swelling Hilar lymphadenopathy Allergic rhinitis History of lung or bronchial cancer Mediastinal lymphadenopathy PAF (paroxysmal atrial fibrillation) COPD (chronic obstructive pulmonary disease) Dyspnea on exertion Malignant neoplasm of unspecified part of unspecified bronchus or lung Pulmonary emphysema Smoking greater than 30 pack years Tobacco abuse disorder Lung nodule Tobacco abuse counseling HAP (hospital-acquired pneumonia) Influenza A Acute on chronic respiratory failure with hypoxia and hypercapnia Tobacco abuse AAA (abdominal aortic aneurysm) Melanoma Thyroid disease Sinus problem History of radiation therapy History of chemotherapy Cataract Myocardial infarction Lung disease Pacemaker DVT (deep venous thrombosis) Cancer Atherosclerotic heart disease Hypotension HLD (hyperlipidemia) Abnormal EKG CAD (coronary artery disease) CHF (congestive heart failure) Gout Hypertension Hypothyroidism COPD exacerbation Surgical History H/O melanoma excision History of heart artery stent History of cardiac cath History of colonoscopy Family History Gout Coronary artery disease AAA (abdominal aortic aneurysm) Heart attack Hypertension Social History Smoking Status: Former smoker tobacco type: cigarettes packs per day: 1 alcohol intake: former substance use type: denies use 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ional status: retired and disabled Travel in the last 8 weeks: None household members: spouse housing: house lives independently: No marital status: education level: high school service: No retirement: No caffeine: No special honey needs: No agree to transfusion: No do you feel safe at home: Yes victim of physical abuse: No victim of emotional abuse: No victim of sexual abuse: No would you like helpful sources: No Review of Systems Constitutional Constitutional: Reports headache(s) and Reports weakness ENT Ears, Nose, Mouth, and Throat: Reports headache(s) and Reports vertigo *Neurologic Neurologic: Reports headache(s), Reports vertigo and Reports weakness Meds Home Medications and Allergies Home Medications Medication Instructions Recorded Confirmed Type allopurinol 300 mg tablet 300 mg PO DAILY 12/22/17 11/22/23 History lovastatin 40 mg tablet 40 mg PO HS 12/22/17 11/22/23 History aspirin 81 mg tablet,delayed 81 mg PO BID HEART HEALTH 08/24/20 11/20/23 History release levothyroxine 150 mcg tablet 150 mcg PO DAILY thyroid 02/02/23 11/22/23 History docusate sodium 100 mg capsule 100 mg PO DAILY #30 caps 03/29/23 11/20/23 Rx (Colace) polyethylene glycol 3350 17 17 g PO DAILY PRN constipation 03/29/23 11/20/23 Rx gram/dose oral powder (Miralax) #119 grams spironolactone 25 mg tablet 25 mg PO DAILY 05/11/23 11/22/23 History azelastine 137 mcg (0.1 %) nasal 2 spray intranasal HS 90 days #30 09/11/23 11/22/23 Rx spray aerosol mL fluticasone fur. 100 mcg-umeclid 1 inh inhalation DAILY 90 days #90 11/08/23 11/22/23 Rx 62.5 mcg-vilant 25 mcg ea inhalat.powder (Trelegy Ellipta) fluticasone propionate 50 2 spray intranasal DAILY 90 days 11/20/23 11/20/23 Rx mcg/actuation nasal #16 grams spray,suspension (Flonase Allergy Relief) ipratropium 0.5 mg-albuterol 3 mg 3 ml inhalation QIDP PRN shortness 11/22/23 11/22/23 History (2.5 mg base)/3 mL nebulization of breath or wheezing soln metoprolol succinate 25 mg 25 mg PO HS 11/22/23 11/22/23 History tablet,extended release 24 hr New Prescriptions to Start Prescriptions: Allergies Allergy/AdvReac Type Severity Reaction Status Date / Time No Known Drug Allergies Allergy Unknown Unknown Verified 11/20/23 15:11 [NKDA] allergy reaction Exam (Inpt) Vital signs and Labs for Last 24 Hours: Temp Pulse Resp BP Pulse Ox O2 Del Method O2 Flow Rate 98.1 F 99 H 16 110/60 96 Nasal Cannula 3 11/22/23 07:49 11/22/23 07:49 11/22/23 07:49 11/22/23 07:49 11/22/23 07:49 11/22/23 09:00 11/22/23 09:00 FiO2 32 11/22/23 03:50 Laboratory Results - last 24 hr 11/21/23 22:30: SARS-CoV-2 (PCR) Not detected, Influenza A Untype (PCR) Not detected, Influenza Type B (PCR) Not detected 11/21/23 22:43: WBC 2.8 L, RBC 4.45 L, Hgb 14.2, Hct 45.0, MCV 101.3 H, MCH 31.9 H, MCHC 31.5 L, RDW 17.1, Plt Count 109 L, MPV 8.8, Neut % (Auto) 50.8, Lymph % (Auto) 30.5, [place] % (Auto) 18.2 H, Eos % (Auto) 0.5, Baso % (Auto) 6.9 H, Neut # (Auto) 1.4 L, Lymph # (Auto) 0.9, [place] # (Auto) 0.5, Eos # (Auto) 0.0, Baso # (Auto) 0.2, D-Dimer 0.87 H, Sodium 131 L, Potassium 5.0, Chloride 89 L, Carbon Dioxide 35 H, Anion Gap 12.0, BUN 9, Creatinine 0.70, Estimated Creat Clear 65, Estimated GFR 111, Est GFR ( Amer) 135, Glucose 88, Calcium 8.9, Total Bilirubin 0.8, AST 34, ALT 13, Alkaline Phosphatase 83, Troponin I < 0.01, NT-Pro-B Natriuret Pep 915 H, Total Protein 7.4, Albumin 4.0, Globulin 3.4 H, Albumin/Globulin Ratio 1.2 11/21/23 23:07: VBG pH 7.30 L, VBG pCO2 67.7 H, VBG pO2 25.5 L, VBG HCO3 32.3 H, VBG Total CO2 34.3 H, VBG O2 Saturation 52.1, VBG Base Excess 5.8 H, VBG Lactic Acid 1.2 11/22/23 02:25: Troponin I < 0.01 I & O for Labs for Last 24 Hours: Intake & Output 11/19/23 11/20/23 11/21/23 11/22/23 11:59 11:59 11:59 11:59 Intake Total 480 / 480 Balance 480 / 480 Weight 165 lb 8 oz Constitutional: no acute distress Respiratory: Absent respiratory distress Cardiac: Absent Tachycardia Comment:: Left breast wound base and margin clean. Excellent granulation. No spreading cellulitis. Results Labs 11/21/23 22:43 11/21/23 22:43 Labs: Laboratory Results - last 24 hr 11/21/23 22:30: SARS-CoV-2 (PCR) Not detected, Influenza A Untype (PCR) Not detected, Influenza Type B (PCR) Not detected 11/21/23 22:43: WBC 2.8 L, RBC 4.45 L, Hgb 14.2, Hct 45.0, MCV 101.3 H, MCH 31.9 H, MCHC 31.5 L, RDW 17.1, Plt Count 109 L, MPV 8.8, Neut % (Auto) 50.8, Lymph % (Auto) 30.5, [place] % (Auto) 18.2 H, Eos % (Auto) 0.5, Baso % (Auto) 6.9 H, Neut # (Auto) 1.4 L, Lymph # (Auto) 0.9, [place] # (Auto) 0.5, Eos # (Auto) 0.0, Baso # (Auto) 0.2, D-Dimer 0.87 H, Sodium 131 L, Potassium 5.0, Chloride 89 L, Carbon Dioxide 35 H, Anion Gap 12.0, BUN 9, Creatinine 0.70, Estimated Creat Clear 65, Estimated GFR 111, Est GFR ( Amer) 135, Glucose 88, Calcium 8.9, Total Bilirubin 0.8, AST 34, ALT 13, Alkaline Phosphatase 83, Troponin I < 0.01, NT-Pro-B Natriuret Pep 915 H, Total Protein 7.4, Albumin 4.0, Globulin 3.4 H, Albumin/Globulin Ratio 1.2 11/21/23 23:07: VBG pH 7.30 L, VBG pCO2 67.7 H, VBG pO2 25.5 L, VBG HCO3 32.3 H, VBG Total CO2 34.3 H, VBG O2 Saturation 52.1, VBG Base Excess 5.8 H, VBG Lactic Acid 1.2 11/22/23 02:25: Troponin I < 0.01 Assessment and Plan *Assessment and plan (1) Left breast abscess: Status: Acute Category: Medical Code(s): N61.1 - Abscess of the breast and nipple Plan: Overall, doing well status post incision and drainage on November 16, 2023 Continue dry dressing changes
[2023-11-22] MEDS: FLUTICASONE/UMECLIDIN/VILANTER 100/62.5/25MCG INHALER 1 PUFF IH (12:09)
--- NOTE | 2023-11-22 14:16 | PC.NURSE ---
PT IS RESTING IN BED. ALERT AND ORIENTED X4. EATING AND DRINKING WELL. LUNG SOUNDS DIMINISHED WITH SCATTERED WHEEZES. ABDOMEN SOFT/NON TENDER WITH ACTIVE BOWEL SOUNDS. DRESSING TO THE LEFT BREAST WAS CHANGED THIS SHIFT. AMBULATES TO THE BATHROOM. WILL CONTINUE TO MONITOR.
[2023-11-22] MEDS: PRAVASTATIN 40MG TAB 40 MG PO (20:16)
[2023-11-23] VITALS (7 sets, daily range): BP systolic 107–116; BP diastolic 63–68; PULSE 70–98; RESP 16–18; TEMP 36.5–36.8; O2SAT 90–97; BMI 25.9
[2023-11-23] MEDS: FLUTICASONE/UMECLIDIN/VILANTER 100/62.5/25MCG INHALER 1 PUFF IH (05:24)
--- NOTE | 2023-11-23 05:45 | PC.NURSE ---
UP AT BEDSIDE. NO C/O PAIN. OCCASSIONAL MOIST COUGH NOTED. 02 AT 3LNC. A/O X 4. PLEASANT AND COOPERATIVE.
[2023-11-23] MEDS: LEVOTHYROXINE 150MCG (0.15MG)TAB 150 MCG PO (06:30)
--- NOTE | 2023-11-23 06:43 | EXP.SURG.PN ---
Subjective Patient reports: no new complaints Exam Data for Last 24 hours Vital signs and Labs for Last 24 Hours: Temp Pulse Resp BP Pulse Ox O2 Del Method O2 Flow Rate 97.7 F 77 18 107/65 L 97 Nasal Cannula 3 11/23/23 04:00 11/23/23 04:00 11/23/23 04:00 11/23/23 04:00 11/23/23 04:00 11/23/23 05:00 11/23/23 05:00 FiO2 32 11/22/23 03:50 I & O for Last 24 hours: Intake & Output 11/20/23 11/21/23 11/22/23 11/23/23 11:59 11:59 11:59 11:59 Intake Total 480 / 480 1360 / 1360 Output Total 0 / 0 Balance 480 / 480 1360 / 1360 Weight 165 lb 8 oz 165 lb 8 oz Microbiology Reports for the Last 24 Hours: Microbiology 11/22/23 13:30 Sputum - Expectorated Sputum Gram Stain - Final Constitutional Constitutional: no acute distress Routine Chest/Breast/Axilla Exam Comments: Left breast abscess site without spreading cellulitis. Granulation/contraction noted. *Routine Respiratory Exam Respiratory: Absent respiratory distress *Routine Cardiovascular Exam Cardiovascular: Absent tachycardia Progress Note: A&P Assessment and plan (1) Left breast abscess: Status: Acute Assessment and plan: Overall, doing well status post incision and drainage prior to this hospitalization. Continue dressing changes Outpatient follow-up in 1-2 weeks
--- NOTE | 2023-11-23 08:25 | EXP.ACUTE.PN ---
Subjective *Date: 11/23/23 *Time: 08:44 Interval history: Patient feeling about the same today. Still with a very congested cough and weak. He is coughing up copious amounts of sputum. He denies any pain. He was able to rest last night and is eating well. Medical Exam Vital signs and Labs for Last 24 Hours: Vital Signs Temp Pulse Resp BP Pulse Ox O2 Del Method O2 Flow Rate 11/23/23 06:48 Nasal Cannula 3 11/23/23 05:00 Nasal Cannula 3 11/23/23 04:00 97.7 F 77 18 107/65 L 97 Room Air 11/23/23 03:00 Nasal Cannula 3 11/23/23 01:00 Nasal Cannula 3 11/22/23 23:00 Nasal Cannula 3 11/22/23 20:57 Nasal Cannula 3 11/22/23 20:00 98.2 F 75 18 107/61 L 98 Nasal Cannula 3 11/22/23 20:00 98 Nasal Cannula 3 11/22/23 18:25 Nasal Cannula 3 11/22/23 17:00 Nasal Cannula 3 11/22/23 16:00 98 F 63 16 109/59 L 98 Nasal Cannula 11/22/23 15:57 Nasal Cannula 3 11/22/23 14:46 Nasal Cannula 2 11/22/23 12:28 Nasal Cannula 3 11/22/23 10:52 Nasal Cannula 2 11/22/23 09:00 Nasal Cannula 3 Intake and Output 11/22/23 11/23/23 11/23/23 19:59 03:59 11:59 Intake Total 750 / 1360 610 / 1360 Output Total 0 / 0 Balance 750 / 1360 610 / 1360 0 / 1360 Intake: Intake, Oral Amount 750 / 1110 360 / 1110 Intake, Total IV Amount 250 / 250 Vancomycin/Water For Inj (Peg) 250 / 250 1.25 gm In 250 ml @ 125 mls/hr IV Q18H [facility] Rx#:[id number] Output: Output, Urine Amount 0 / 0 Other: Number of Unmeasured Voids 1 Weight 165 lb 8 oz Patient Weight 11/23/23 11:59 Weight 165 lb 8 oz I & O for Labs for Last 24 Hours: Intake & Output 11/20/23 11/21/23 11/22/23 11/23/23 11:59 11:59 11:59 11:59 Intake Total 480 / 480 1360 / 1360 Output Total 0 / 0 Balance 480 / 480 1360 / 1360 Weight 165 lb 8 oz 165 lb 8 oz Microbiology Reports for the Last 24 Hours: Microbiology 11/22/23 13:30 Sputum - Expectorated Sputum Gram Stain - Final Constitutional: Present no acute distress Respiratory: Present rales (bibasilar) and wheezes (bilateral) Cardiac: Present Reg Rate and Rhythm GI: Present soft and normal bowel sounds; Absent distention or tenderness Extremities: Absent edema Skin: Present intact Neuro: Present alert, awake and oriented x 3 Assessment and Plan *Assessment and plan (1) Pneumonia: Status: Acute Qualifiers: Laterality: bilateral Category: Medical Code(s): J18.9 - Pneumonia, unspecified organism (2) Neutropenia: Status: Acute Category: Medical Code(s): D70.9 - Neutropenia, unspecified (3) Left breast abscess: Status: Acute Category: Medical Code(s): N61.1 - Abscess of the breast and nipple (4) Olecranon bursitis of right elbow: Status: Acute Category: Medical Code(s): M70.21 - Olecranon bursitis, right elbow (5) History of ASCVD: Status: Chronic Category: Medical Code(s): Z86.79 - Personal history of other diseases of the circulatory system (6) Malignant neoplasm of lung: Status: Acute Qualifiers: Laterality: unspecified laterality Lung location: overlapping sites Qualified Code(s): C34.80 - Malignant neoplasm of overlapping sites of unspecified bronchus and lung Category: Medical Code(s): C34.90 - Malignant neoplasm of unspecified part of unspecified bronchus or lung (7) Mediastinal lymphadenopathy: Status: Acute Category: Medical Code(s): R59.0 - Localized enlarged lymph nodes (8) PAF (paroxysmal atrial fibrillation): Status: Acute Category: Medical Code(s): I48.0 - Paroxysmal atrial fibrillation (9) COPD (chronic obstructive pulmonary disease): Status: Chronic Qualifiers: COPD type: emphysema Emphysema type: unspecified Qualified Code(s): J43.9 - Emphysema, unspecified Category: Medical Code(s): J44.9 - Chronic obstructive pulmonary disease, unspecified (10) Smoking greater than 30 pack years: Status: Chronic Category: Social Hx Code(s): F17.210 - Nicotine dependence, cigarettes, uncomplicated (11) Hypertension: Status: Chronic Qualifiers: Hypertension type: essential hypertension Qualified Code(s): I10 - Essential (primary) hypertension Category: Medical Code(s): I10 - Essential (primary) hypertension (12) HLD (hyperlipidemia): Status: Chronic Qualifiers: Hyperlipidemia type: mixed hyperlipidemia Qualified Code(s): E78.2 - Mixed hyperlipidemia Category: Medical Code(s): E78.5 - Hyperlipidemia, unspecified (13) CHF (congestive heart failure): Status: Chronic Qualifiers: Heart failure chronicity: chronic Heart failure type: diastolic Qualified Code(s): I50.32 - Chronic diastolic (congestive) heart failure Category: Medical Code(s): I50.9 - Heart failure, unspecified (14) CAD (coronary artery disease): Status: Chronic Qualifiers: Associated angina: without angina Coronary Disease-Associated Artery/Lesion type: [place] artery [place] vs. transplanted heart: [place] heart Qualified Code(s): I25.10 - Atherosclerotic heart disease of [place] coronary artery without angina pectoris Category: Medical Code(s): I25.10 - Atherosclerotic heart disease of [place] coronary artery without angina pectoris Plan Will schedule nebs today and continue abx. Will get labs as well. Dr. aWng entry - Saw patient, agree with above note.
[2023-11-23] MEDS: ALLOPURINOL 300MG TABLET 300 MG PO (09:06)
[2023-11-23] MEDS: ASPIRIN EC 81MG TABLET 81 MG PO ×2 (09:06→20:46)
[2023-11-23] MEDS: PIPERACILLIN/TAZO 4.5 GM in 0.9 % SODIUM CHLORIDE 100 ML IV (09:07)
[2023-11-23] MEDS: ENOXAPARIN 40MG/0.4ML SYRINGE 40 MG SQ (09:07)
[2023-11-23] MEDS: IPRATROPIUM/ALBUTEROL 3 ML NEB IH ×3 (09:27→18:49)
[2023-11-23 09:43] LABS: Basophils % 0.6 % (0.1-2.0); Eosinophils % 0.2 % (0.1-12.0); Hematocrit 38.7 % (42.0-52.0); Hemoglobin 12.7 g/dL (14.1-18.0); Lymphocytes # 0.5 K/mm3 (0.7-4.5); Lymphocytes % 15.2 % (10-50); Mean Corpuscular HGB Conc 32.8 g/dL (31.8-35.4); Mean Corpuscular Hemoglobin 32.1 pg (27.0-31.2); Mean Corpuscular Volume 98.1 fl (80-94); Mean Platelet Volume 9.4 fl (7.4-10.4); Monocytes # 0.5 K/mm3 (0.1-1.0); Monocytes % 14.2 % (1.7-9.3); Neutrophils # 2.4 K/mm3 (1.8-7.8); Neutrophils % 69.8 % (37.0-80.0); Platelet Count 73 K/mm3 (142-424); Red Blood Count 3.95 M/mm3 (4.60-6.20); Red Cell Distribution Width 16.7 % (11.5-17.5); White Blood Count 3.4 K/mm3 (4.8-10.8)
[2023-11-23 09:49] LABS: Alanine Aminotransferase 16 U/L (12-78); Albumin Level 3.4 g/dl (3.5-5.0); Albumin/Globulin Ratio 1.2 (1.1-1.8); Alkaline Phosphatase 78 U/L (38-126); Anion Gap 7.8 mEq/L (5-15); Aspartate Amino Transferase 33 U/L (17-59); Bilirubin,Total 0.5 mg/dl (0.2-1.3); Blood Urea Nitrogen 12 mg/dl (9-20); Calcium 8.4 mg/dl (8.4-10.2); Carbon Dioxide 37 mmol/L (22.0-30.0); Chloride 89 mmol/L (98-107); Creatinine Clearance Estimated 73 mL/min (50-200); Estimated Glomerular Filt Rate 133 ml/min (>60); GFR (African American) 161 ML/MIN (>60); Globulin 2.9 g/dL (1.3-3.2); Glucose 144 mg/dl (74-100); Magnesium 1.8 mg/dl (1.6-2.3); Potassium 4.8 mmoL/L (3.5-5.1); Sodium 129 mmol/L (136-145); Total Protein,Serum 6.3 g/dl (6.3-8.2)
[2023-11-23] MEDS: VANCOMYCIN/WATER FOR INJ (PEG) 1.25 GM/250 ML PIGGYBACK IV (13:44)
--- NOTE | 2023-11-23 18:28 | PC.NURSE ---
A&OX4. TOLERATING 2-3LNC WELL. ON 2.5LNC AT THIS TIME, O2 SAT IN LOW 90S. PT HAS HAD A VEY PRODUCTIVE COUGH T/O SHIFT, GETTING A LOT OF CREAMY SPUTUM UP. HAS BEEN IN BED RESTING MAJORITY OF SHIFT. AMBULATING INDEPENDENTLY TO THE BATHROOM. TOLERATES WELL. C/O FEELING SOA AT ONE POINT, INCREASED OXYGEN AND SEEMS TO BE BETTER. NO OTHER NEEDS OR C/O NOTED THIS SHIFT. VSS.
[2023-11-23] MEDS: PRAVASTATIN 40MG TAB 40 MG PO (20:46)
[2023-11-24 04:00] VITALS: BP 113/69; PULSE 85; RESP 18; TEMP 36.6; O2SAT 94; BMI 26.2
[2023-11-24] MEDS: LEVOTHYROXINE 150MCG (0.15MG)TAB 150 MCG PO (06:00)
[2023-11-24] MEDS: FLUTICASONE/UMECLIDIN/VILANTER 100/62.5/25MCG INHALER 1 PUFF IH (06:40)
[2023-11-24] MEDS: IPRATROPIUM/ALBUTEROL 3 ML NEB IH ×3 (06:44→13:26)
[2023-11-24 06:46] VITALS: PULSE 100; O2SAT 95
--- NOTE | 2023-11-24 06:51 | PC.NURSE ---
HAS BEEN SITTING AT SIDE OF BED SIN 5 AM. VITAL SIGNS STABLE, AFEBRILE. 02 AT 2.5 LNC. WORE SCUDS FOR SHORT PERIOD OF TIME. DRSG C/D/I TO LEFT CHESTWALL. NO C/O PAIN.
[2023-11-24 07:39] LABS: Chloride 92 mmol/L (98-107)
[2023-11-24 07:40] LABS: Potassium 4.3 mmoL/L (3.5-5.1); Sodium 133 mmol/L (136-145)
[2023-11-24 07:43] LABS: Blood Urea Nitrogen 6 mg/dl (9-20); Calcium 8.7 mg/dl (8.4-10.2); Creatinine Clearance Estimated 74 mL/min (50-200); Estimated Glomerular Filt Rate 164 ml/min (>60); GFR (African American) 199 ML/MIN (>60); Glucose 96 mg/dl (74-100)
[2023-11-24 07:52] LABS: Anion Gap 4.3 mEq/L (5-15); Carbon Dioxide 41 mmol/L (22.0-30.0)
[2023-11-24 08:00] VITALS: BP 110/55; PULSE 82; RESP 20; TEMP 36.2; O2SAT 93
[2023-11-24] MEDS: ALLOPURINOL 300MG TABLET 300 MG PO (08:15)
[2023-11-24] MEDS: ASPIRIN EC 81MG TABLET 81 MG PO (08:15)
--- NOTE | 2023-11-24 08:21 | P.PN_ITS ---
Subjective *Date: 11/24/23 *Time: 09:15 Interval history: Patient is feeling a little bit better today. Breathing treatments seem to have helped her wheezing. He slept better night and is coughing up less sputum today. He is still very weak. Medical Exam Vital signs and Labs for Last 24 Hours: Vital Signs Temp Pulse Pulse Resp BP Pulse Ox O2 Del Method 11/24/23 06:46 100 H 11/24/23 06:46 100 H 11/24/23 06:46 95 Nasal Cannula 11/24/23 06:36 Nasal Cannula 11/24/23 05:00 Nasal Cannula 11/24/23 04:00 97.9 F 85 18 113/69 94 L Nasal Cannula 11/24/23 03:00 Nasal Cannula 11/24/23 01:00 Nasal Cannula 11/23/23 23:00 Nasal Cannula 11/23/23 21:00 Nasal Cannula 11/23/23 20:00 98.3 F 98 H 18 114/63 96 Nasal Cannula 11/23/23 20:00 94 L Nasal Cannula 11/23/23 18:45 94 L Nasal Cannula 11/23/23 18:31 Nasal Cannula 11/23/23 16:57 Nasal Cannula 11/23/23 16:00 91 L Nasal Cannula 11/23/23 16:00 98 F 79 17 116/68 91 L Nasal Cannula 11/23/23 15:00 Nasal Cannula 11/23/23 13:23 86 11/23/23 13:23 90 11/23/23 13:23 90 L Nasal Cannula 11/23/23 12:59 Nasal Cannula 11/23/23 10:56 Nasal Cannula 11/23/23 09:27 74 11/23/23 09:27 79 11/23/23 09:27 95 Nasal Cannula 11/23/23 09:00 Nasal Cannula O2 Flow Rate 11/24/23 06:46 11/24/23 06:46 11/24/23 06:46 2.5 11/24/23 06:36 2.5 11/24/23 05:00 2.5 11/24/23 04:00 2.5 11/24/23 03:00 2.5 11/24/23 01:00 2.5 11/23/23 23:00 2.5 11/23/23 21:00 2.5 11/23/23 20:00 2.5 11/23/23 20:00 2.5 11/23/23 18:45 2.5 11/23/23 18:31 2.5 11/23/23 16:57 2.5 11/23/23 16:00 2.5 11/23/23 16:00 2.5 11/23/23 15:00 2 11/23/23 13:23 11/23/23 13:23 11/23/23 13:23 2 11/23/23 12:59 2 11/23/23 10:56 2 11/23/23 09:27 11/23/23 09:27 11/23/23 09:27 3 11/23/23 09:00 3 Intake and Output 11/23/23 11/24/23 11/24/23 19:59 03:59 11:59 Intake Total 480 / 924 444 / 924 Output Total 0 Balance 480 / 923 443 / 923 0 / 923 Intake: Intake, Oral Amount 480 / 924 444 / 924 Output: Output, Urine Amount 0 Other: Number of Unmeasured Voids 1 Weight 166 lb 11.2 oz Patient Weight 11/24/23 11:59 Weight 166 lb 11.2 oz Laboratory Results - last 24 hr 11/23/23 09:08: WBC 3.4 L, RBC 3.95 L, Hgb 12.7 L, Hct 38.7 L, MCV 98.1 H, MCH 3 2.1 H, MCHC 32.8, RDW 16.7, Plt Count 73 L D, MPV 9.4, Neut % (Auto) 69.8, Lymph % (Auto) 15.2, [place] % (Auto) 14.2 H, Eos % (Auto) 0.2, Baso % (Auto) 0.6, Neut # (Auto) 2.4, Lymph # (Auto) 0.5 L, [place] # (Auto) 0.5, Eos # (Auto) 0.0, Baso # (Auto) 0.0, Sodium 129 L, Potassium 4.8, Chloride 89 L, Carbon Dioxide 37 H, Anion Gap 7.8, BUN 12 D, Creatinine 0.60 L, Estimated Creat Clear 73, Estimated GFR 133, Est GFR ( Amer) 161, Glucose 144 H, Calcium 8.4, Magnesium 1.8, Total Bilirubin 0.5, AST 33, ALT 16, Alkaline Phosphatase 78, Total Protein 6.3, Albumin 3.4 L D, Globulin 2.9, Albumin/Globulin Ratio 1.2 11/24/23 07:28: Sodium 133 L, Potassium 4.3, Chloride 92 L, Carbon Dioxide 41 H* , Anion Gap 4.3 L, BUN 6 L D, Creatinine 0.50 L, Estimated Creat Clear 74, Estimated GFR 164, Est GFR ( Amer) 199 D, Glucose 96 D, Calcium 8.7 I & O for Labs for Last 24 Hours: Intake & Output 11/21/23 11/22/23 11/23/23 11/24/23 11:59 11:59 11:59 11:59 Intake Total 480 / 480 1600 / 1600 924 / 924 Output Total 0 / 0 Balance 480 / 480 1600 / 1600 923 / 923 Weight 165 lb 8 oz 165 lb 8 oz 166 lb 11.2 oz Microbiology Reports for the Last 24 Hours: Microbiology 11/21/23 22:43 Blood Blood Culture - Preliminary No growth. 11/21/23 22:57 Blood Blood Culture - Preliminary No growth. Constitutional: Present no acute distress Respiratory: Present rales (bibasilar) and wheezes (less today) Cardiac: Present Reg Rate and Rhythm GI: Present soft and normal bowel sounds; Absent distention or tenderness Extremities: Absent edema Skin: Present intact Neuro: Present alert, awake and oriented x 3 Assessment and Plan *Assessment and plan (1) Pneumonia: Status: Acute Qualifiers: Laterality: bilateral Category: Medical Code(s): J18.9 - Pneumonia, unspecified organism (2) Neutropenia: Status: Acute Category: Medical Code(s): D70.9 - Neutropenia, unspecified (3) Left breast abscess: Status: Acute Category: Medical Code(s): N61.1 - Abscess of the breast and nipple (4) Olecranon bursitis of right elbow: Status: Acute Category: Medical Code(s): M70.21 - Olecranon bursitis, right elbow (5) History of ASCVD: Status: Chronic Category: Medical Code(s): Z86.79 - Personal history of other diseases of the circulatory system (6) Malignant neoplasm of lung: Status: Acute Qualifiers: Laterality: unspecified laterality Lung location: overlapping sites Qualified Code(s): C34.80 - Malignant neoplasm of overlapping sites of unspecified bronchus and lung Category: Medical Code(s): C34.90 - Malignant neoplasm of unspecified part of unspecified bronchus or lung (7) Mediastinal lymphadenopathy: Status: Acute Category: Medical Code(s): R59.0 - Localized enlarged lymph nodes (8) PAF (paroxysmal atrial fibrillation): Status: Acute Category: Medical Code(s): I48.0 - Paroxysmal atrial fibrillation (9) COPD (chronic obstructive pulmonary disease): Status: Chronic Qualifiers: COPD type: emphysema Emphysema type: unspecified Qualified Code(s): J43.9 - Emphysema, unspecified Category: Medical Code(s): J44.9 - Chronic obstructive pulmonary disease, unspecified (10) Smoking greater than 30 pack years: Status: Chronic Category: Social Hx Code(s): F17.210 - Nicotine dependence, cigarettes, uncomplicated (11) Hypertension: Status: Chronic Qualifiers: Hypertension type: essential hypertension Qualified Code(s): I10 - Essential (primary) hypertension Category: Medical Code(s): I10 - Essential (primary) hypertension (12) HLD (hyperlipidemia): Status: Chronic Qualifiers: Hyperlipidemia type: mixed hyperlipidemia Qualified Code(s): E78.2 - Mixed hyperlipidemia Category: Medical Code(s): E78.5 - Hyperlipidemia, unspecified (13) CHF (congestive heart failure): Status: Chronic Qualifiers: Heart failure chronicity: chronic Heart failure type: diastolic Qualified Code(s): I50.32 - Chronic diastolic (congestive) heart failure Category: Medical Code(s): I50.9 - Heart failure, unspecified (14) CAD (coronary artery disease): Status: Chronic Qualifiers: Associated angina: without angina Coronary Disease-Associated Artery/Lesion type: [place] artery [place] vs. transplanted heart: [place] heart Qualified Code(s): I25.10 - Atherosclerotic heart disease of [place] coronary artery without angina pectoris Category: Medical Code(s): I25.10 - Atherosclerotic heart disease of [place] coronary artery without angina pectoris Plan Will continue current treatment. Awaiting sputum culture results. Dr. Wang entry - Saw patient, agree with above note.
[2023-11-24 09:01] LABS: Vancomycin,Trough 8.2 ug/mL (5.0-10.0)
[2023-11-24] MEDS: PHA TO NURSING INSTRUCTION 1 EACH NOTAPPLIC (10:03)
--- NOTE | 2023-11-24 10:13 | P.CONPHA_ITS ---
Pharmacy Consult Date: 11/24/23 Time: 10:13 Referring provider: DR DIETRICH Reason for Consult:: VANCOMYCIN TROUGH LEVEL OBTAINED Allergies Allergy/AdvReac Type Severity Reaction Status Date / Time No Known Drug Allergies Allergy Unknown Unknown Verified 11/20/23 15:11 [NKDA] allergy reaction Home Medications Medication Instructions Recorded Confirmed Type allopurinol 300 mg tablet 300 mg PO DAILY 12/22/17 11/22/23 History lovastatin 40 mg tablet 40 mg PO HS 12/22/17 11/22/23 History aspirin 81 mg tablet,delayed 81 mg PO DAILY 08/24/20 11/22/23 History release levothyroxine 150 mcg tablet 150 mcg PO DAILY thyroid 02/02/23 11/22/23 History spironolactone 25 mg tablet 25 mg PO DAILY 05/11/23 11/22/23 History azelastine 137 mcg (0.1 %) nasal 2 spray intranasal HS 90 days #30 09/11/23 11/22/23 Rx spray aerosol mL fluticasone fur. 100 mcg-umeclid 1 inh inhalation DAILY 90 days #90 11/08/23 11/22/23 Rx 62.5 mcg-vilant 25 mcg ea inhalat.powder (Trelegy Ellipta) fluticasone propionate 50 2 spray intranasal DAILY 90 days 11/20/23 11/22/23 Rx mcg/actuation nasal #16 grams spray,suspension (Flonase Allergy Relief) ipratropium 0.5 mg-albuterol 3 mg 3 ml inhalation QIDP PRN shortness 11/22/23 11/22/23 History (2.5 mg base)/3 mL nebulization of breath or wheezing soln metoprolol succinate 25 mg 25 mg PO HS 11/22/23 11/22/23 History tablet,extended release 24 hr New Prescriptions to Start Prescriptions: Height: 1.7 m Weight: 75.614 kg Laboratory Results:: Laboratory Results - last 24 hr 11/24/23 07:28: Sodium 133 L, Potassium 4.3, Chloride 92 L, Carbon Dioxide 41 H* , Anion Gap 4.3 L, BUN 6 L D, Creatinine 0.50 L, Estimated Creat Clear 74, Estimated GFR 164, Est GFR ( Amer) 199 D, Glucose 96 D, Calcium 8.7, Vancomycin Trough 8.2 Medical History: Medical History (Updated 11/23/23 @ 08:27 by JOSÉ Banegas) Elbow mass Swelling Hilar lymphadenopathy Allergic rhinitis History of lung or bronchial cancer Mediastinal lymphadenopathy PAF (paroxysmal atrial fibrillation) COPD (chronic obstructive pulmonary disease) Dyspnea on exertion Malignant neoplasm of unspecified part of unspecified bronchus or lung Pulmonary emphysema Smoking greater than 30 pack years Tobacco abuse disorder Lung nodule Tobacco abuse counseling HAP (hospital-acquired pneumonia) Influenza A Acute on chronic respiratory failure with hypoxia and hypercapnia Tobacco abuse AAA (abdominal aortic aneurysm) Melanoma Thyroid disease Sinus problem History of radiation therapy History of chemotherapy Cataract Myocardial infarction Lung disease Pacemaker DVT (deep venous thrombosis) Cancer Atherosclerotic heart disease Hypotension HLD (hyperlipidemia) Abnormal EKG CAD (coronary artery disease) CHF (congestive heart failure) Gout Hypertension Hypothyroidism COPD exacerbation Assessment and Plan Assessment and plan all Dx Assessment and Plan for all problems:: Pharmacokinetic dosing service Weight: 75.614 Kilograms Vancomycin single level analysis: Current dose being given: 1250 mg Current dosing interval: 18 hrs Current infusion time (hrs): 2 Single level Trough Data: Trough level obtained: 8.2 mcg/ml Timing of trough - # of hrs before next dose: 0.5 Hrs Desired peak: 35 mcg/ml Desired trough: 12.5 mcg/ml Estimated PK Parameters: New rate constant (miles): 0.075 hr-1 Half-life: 9.24 Hours Vd from levels: 56.71 Liters (0.7 L/kg) CLvanco=?? 4.253 L/hr Estimated New Dose and Interval Recommended dose: 1479.0 mg Recommended interval: 15.7 Hrs Recommendations: Give Vancomycin 1250 mg q 12 hrs. Infuse over 2 hrs Expected Cpeak: 34.5 mcg/mL Expected Ctrough: 16.3 mcg/mL AUC 0-24 /ANNA Data: ANNA 0.5 mcg/mL:?? AUC/ANNA:? 1175.6 ANNA 1.0 mcg/mL:?? AUC/ANNA:? 587.8 Thank you for the consult
[2023-11-24 10:50] VITALS: PULSE 62; O2SAT 95
[2023-11-24 11:33] VITALS: BMI 26.2
[2023-11-24] MEDS: ACETAMINOPHEN 325MG TAB 650 MG PO (12:04)
[2023-11-24] MEDS: VANCOMYCIN/WATER FOR INJ (PEG) 1.25 GM/250 ML PIGGYBACK IV (12:05)
[2023-11-24 13:27] VITALS: PULSE 78; PULSE 80
[2023-11-24 16:00] VITALS: BP 111/65; PULSE 73; RESP 19; TEMP 36.4; O2SAT 95
[2023-11-24] MEDS: FLUCONAZOLE IN NACL,ISO-OSM 200 MG/100 ML PIGGYBACK IV (16:10)
--- NOTE | 2023-11-28 12:45 | CARE MANAGER ---
Attempted to contact patient x2 related to hospital discharge. No VM option. ADRIANNA Lieberman
--- NOTE | 2023-12-04 16:07 | P.DS_ITS ---
General Admission date:: 11/21/23 Discharge date: 11/24/23 HPI HPI HPI: This is a 68-year-old gentleman seen in consultation regarding left breast wound care. He is status post incision and drainage of focal abscess on November 16, 2023. He has subsequently been admitted for COPD exacerbation. He is undergoing dry dressing changes and is without complaint with regard to his wound. Forwarded from admission H&P: 68-year-old male with history of lung cancer, had 1 treatment of chemotherapy 1 month ago, COPD, paroxysmal A-fib, coronary artery disease, hypertension, hyperlipidemia, presents for shortness of breath. He is chronically on 3 L at home at night or while laying down. He reports that he has been more congested over the last couple of weeks. He denies any fever. He sometimes coughs up clear stuff. He reports that they were monitoring his oxygen and his heart rate today and his heart rate was going high and his oxygen was dropping so they presented to the emergency room. Per report, patient was satting in the 70s on arrival, improved with DuoNeb's and then nonrebreather by EMS. (above as per ER physician) Of note, patient states he had a cyst removed from his left breast by Dr. Ugarte approximately a week ago as it was infected. This is why he was unable to have his last chemo. His has been replacing the packing at home. Hospital Course Hospital Course Hospital Course: On admission patient was initiated on vancomycin and Zosyn for empiric coverage of pneumonia. He was also started on Scheduled DuoNeb treatments. He was given a dose of steroids. By the next day he was less short of breath. Dr. Ugarte saw him for his breast abscess and wound care. He felt the wound had excellent granulation with no spreading cellulitis and to continue with dry dressing changes. Patient coughed up copious amounts of sputum Initially which improved after DuoNeb's started. He was able to rest at night and was eating well but still felt very weak. 11/24/2023 sputum culture noted to grow yeast. He was started on Diflucan IV. He was stable to be discharged home and was to continue with oral Diflucan as an outpatient. On this date he was feeling better. Breathing treatments seemed to have helped the wheezing which made it easier for him to sleep. Cough was less with less sputum production. Exam Data for Last 24 hours Vital signs and Labs for Last 24 Hours: Temp Pulse Resp BP Pulse Ox O2 Del Method O2 Flow Rate 97.5 F L 73 19 111/65 95 Nasal Cannula 2.5 11/24/23 16:00 11/24/23 16:00 11/24/23 16:00 11/24/23 16:00 11/24/23 16:00 11/24/23 17:00 11/24/23 17:00 FiO2 32 11/22/23 03:50 I & O for Last 24 hours: Narrative: Constitutional: Present no acute distress Respiratory: Present rales (bibasilar) and wheezes (less today) Cardiac: Present Reg Rate and Rhythm GI: Present soft and normal bowel sounds; Absent distention or tenderness Extremities: Absent edema Skin: Present intact Neuro: Present alert, awake and oriented x 3 Results Data Completed and Pending Completed studies during hospitalization [Text1]: 11/23/23 09:08: WBC 3.4 L, RBC 3.95 L, Hgb 12.7 L, Hct 38.7 L, MCV 98.1 H, MCH 32.1 H, MCHC 32.8, RDW 16.7, Plt Count 73 L D, MPV 9.4, Neut % (Auto) 69.8, Lymph % (Auto) 15.2, [place] % (Auto) 14.2 H, Eos % (Auto) 0.2, Baso % (Auto) 0.6, Neut # (Auto) 2.4, Lymph # (Auto) 0.5 L, [place] # (Auto) 0.5, Eos # (Auto) 0.0, Baso # (Auto) 0.0, Sodium 129 L, Potassium 4.8, Chloride 89 L, Carbon Dioxide 37 H, Anion Gap 7.8, BUN 12 D, Creatinine 0.60 L, Estimated Creat Clear 73, Estimated GFR 133, Est GFR ( Amer) 161, Glucose 144 H, Calcium 8.4, Magnesium 1.8, Total Bilirubin 0.5, AST 33, ALT 16, Alkaline Phosphatase 78, Total Protein 6.3, Albumin 3.4 L D, Globulin 2.9, Albumin/Globulin Ratio 1.2 11/24/23 07:28: Sodium 133 L, Potassium 4.3, Chloride 92 L, Carbon Dioxide 41 H* , Anion Gap 4.3 L, BUN 6 L D, Creatinine 0.50 L, Estimated Creat Clear 74, Estimated GFR 164, Est GFR ( Amer) 199 D, Glucose 96 D, Calcium 8.7 11/21/2023 CXR FINDINGS: Lungs: Interstitial airspace disease in bilateral mid and lower lung zones concerning for pneumonia Pleural spaces: Unremarkable. No pleural effusion. No pneumothorax. Heart/Mediastinum: Unremarkable. No cardiomegaly. Bones/joints: Unremarkable. IMPRESSION: Bilateral lower lobe pneumonia DS: Diagnosis Discharge Diagnosis (1) Pneumonia: Status: Acute Code(s): J18.9 - Pneumonia, unspecified organism Qualifiers: Laterality: bilateral (2) Neutropenia: Status: Acute Code(s): D70.9 - Neutropenia, unspecified (3) Left breast abscess: Status: Acute Code(s): N61.1 - Abscess of the breast and nipple (4) Olecranon bursitis of right elbow: Status: Acute Code(s): M70.21 - Olecranon bursitis, right elbow (5) History of ASCVD: Status: Chronic Code(s): Z86.79 - Personal history of other diseases of the circulatory system (6) Malignant neoplasm of lung: Status: Acute Code(s): C34.90 - Malignant neoplasm of unspecified part of unspecified bronchus or lung Qualifiers: Laterality: unspecified laterality Lung location: overlapping sites Qualified Code(s): C34.80 - Malignant neoplasm of overlapping sites of unspecified bronchus and lung (7) Mediastinal lymphadenopathy: Status: Acute Code(s): R59.0 - Localized enlarged lymph nodes (8) PAF (paroxysmal atrial fibrillation): Status: Acute Code(s): I48.0 - Paroxysmal atrial fibrillation (9) COPD (chronic obstructive pulmonary disease): Status: Chronic Code(s): J44.9 - Chronic obstructive pulmonary disease, unspecified Qualifiers: COPD type: emphysema Emphysema type: unspecified Qualified Code(s): J43.9 - Emphysema, unspecified (10) Smoking greater than 30 pack years: Status: Chronic Code(s): F17.210 - Nicotine dependence, cigarettes, uncomplicated (11) Hypertension: Status: Chronic Code(s): I10 - Essential (primary) hypertension Qualifiers: Hypertension type: essential hypertension Qualified Code(s): I10 - Essential (primary) hypertension (12) HLD (hyperlipidemia): Status: Chronic Code(s): E78.5 - Hyperlipidemia, unspecified Qualifiers: Hyperlipidemia type: mixed hyperlipidemia Qualified Code(s): E78.2 - Mixed hyperlipidemia (13) CHF (congestive heart failure): Status: Chronic Code(s): I50.9 - Heart failure, unspecified Qualifiers: Heart failure chronicity: chronic Heart failure type: diastolic Qualified Code(s): I50.32 - Chronic diastolic (congestive) heart failure (14) CAD (coronary artery disease): Status: Chronic Code(s): I25.10 - Atherosclerotic heart disease of [place] coronary artery without angina pectoris Qualifiers: Associated angina: without angina Coronary Disease-Associated Artery/Lesion type: [place] artery [place] vs. transplanted heart: [place] heart Qualified Code(s): I25.10 - Atherosclerotic heart disease of [place] coronary artery without angina pectoris Meds Home Medications and Allergies Home Medications Medication Instructions Recorded Confirmed Type allopurinol 300 mg tablet 300 mg PO DAILY 12/22/17 11/28/23 History lovastatin 40 mg tablet 40 mg PO HS 12/22/17 11/28/23 History aspirin 81 mg tablet,delayed 81 mg PO DAILY 08/24/20 11/28/23 History release levothyroxine 150 mcg tablet 150 mcg PO DAILY 02/02/23 11/28/23 History spironolactone 25 mg tablet 25 mg PO DAILY 05/11/23 11/28/23 History azelastine 137 mcg (0.1 %) nasal 2 spray intranasal HS 90 days #30 09/11/23 11/28/23 Rx spray aerosol mL fluticasone fur. 100 mcg-umeclid 1 inh inhalation DAILY 90 days #90 11/08/23 11/28/23 Rx 62.5 mcg-vilant 25 mcg ea inhalat.powder (Trelegy Ellipta) fluticasone propionate 50 2 spray intranasal DAILY 90 days 11/20/23 11/28/23 Rx mcg/actuation nasal #16 grams spray,suspension (Flonase Allergy Relief) ipratropium 0.5 mg-albuterol 3 mg 3 ml inhalation QIDP PRN shortness 11/22/23 11/28/23 History (2.5 mg base)/3 mL nebulization of breath or wheezing soln metoprolol succinate 25 mg 25 mg PO HS 11/22/23 11/28/23 History tablet,extended release 24 hr itraconazole 100 mg capsule 200 mg (2 x 100 mg) PO BID #56 caps 12/01/23 Rx levofloxacin 750 mg tablet 750 mg PO DAILY #3 tabs 12/01/23 Rx New Prescriptions to Start Prescriptions: Allergies Allergy/AdvReac Type Severity Reaction Status Date / Time No Known Drug Allergies Allergy Unknown Unknown Verified 11/20/23 15:11 [NKDA] allergy reaction Discharge Plan Disposition Patient Disposition: Home, Self-Care Condition: Fair Discharge Order Discharge Orders: Discharge Order (Routine); Ordered 11/24/23 Ordered By: Sam Wang Follow up Plan Follow up with: Kenji James MD [Primary Care Provider] - 12/14/23 (please call for appointment) Satish Ugarte MD [Staff Physician] - 1 week (please call for appointment) Prescriptions/Medication Reconciliation: Continued levothyroxine 150 mcg tablet 150 mcg PO DAILY spironolactone 25 mg tablet 25 mg PO DAILY fluticasone propionate [Flonase Allergy Relief] 50 mcg/actuation spray,suspension 2 spray intranasal DAILY 90 Days Qty: 16 2RF Rx Instructions: administer into each nostril azelastine 137 mcg (0.1 %) aerosol,spray 2 spray intranasal HS 90 Days Qty: 30 2RF Rx Instructions: administer into each nostril Trelegy Ellipta 100-62.5-25 mcg blister with device 1 inh inhalation DAILY 90 Days Qty: 90 3RF ipratropium-albuterol 0.5 mg-3 mg(2.5 mg base)/3 mL solution for nebulization 3 ml IH QIDP PRN (Reason: shortness of breath or wheezing) metoprolol succinate 25 mg tablet extended release 24 hr 25 mg PO HS lovastatin 40 MG tablet 40 mg PO HS Hold Instructions: Resume on 12/15/23. allopurinol 300 MG tablet 300 mg PO DAILY aspirin 81 mg tablet,delayed release (DR/EC) 81 mg PO DAILY No Action levofloxacin 750 mg tablet 750 mg PO DAILY Qty: 3 0RF itraconazole 100 mg Capsule 200 mg PO BID Qty: 56 0RF Problem Reconciliation Problems Reviewed?: Yes Patient Discharge Instructions ACTIVITY: Continue current activity DIET: continue same diet Patient Instructions: DI for Chronic Obstructive Pulmonary Disease, DI for Pneumonia -- Adult Providers Primary Care Provider: Kenji James Admit Provider: Sam Wang Attending Provider: Sam Wang
== END 2023-11-24 18:20 | disposition home or self-care (01) | DRG 194 ==
LOC: ER 22:50 → 2ND 11-22 01:42
PROVIDERS: Physician Assistant; Admitting Provider Family Medicine; Emergency Provider Emergency Medicine; PCP Family Medicine; Visit Provider Family Medicine
DX: J12.9 Viral pneumonia, unspecified (principal); C34.80 Malignant neoplasm of overlapping sites of unspecified bronchus and lung; J44.1 Chronic obstructive pulmonary disease with (acute) exacerbation; I50.32 Chronic diastolic (congestive) heart failure; D70.9 Neutropenia, unspecified; N61.1 Abscess of the breast and nipple; Z86.79 Personal history of other diseases of the circulatory system; I48.0 Paroxysmal atrial fibrillation; J43.9 Emphysema, unspecified; F17.210 Nicotine dependence, cigarettes, uncomplicated; E78.2 Mixed hyperlipidemia; I25.10 Atherosclerotic heart disease of native coronary artery without angina pectoris; Z99.81 Dependence on supplemental oxygen; Z86.718 Personal history of other venous thrombosis and embolism; E78.5 Hyperlipidemia, unspecified; I11.0 Hypertensive heart disease with heart failure; Z95.0 Presence of cardiac pacemaker; I71.40 Abdominal aortic aneurysm, without rupture, unspecified; Z85.820 Personal history of malignant melanoma of skin; M70.21 Olecranon bursitis, right elbow
CPT/HCPCS: 36415; 71045; 73070; 80048; 80053; 80202; 82803; 83735; 83880; 84484; 85025; 85378; 87040; 87070; 87077; 87106; 87205; 87636; 93005; 94640; 94760; 94761; 99291; J2543; J3475

== ENCOUNTER 2023-11-27 05:37 | Emergency (ER) | payer MEDICARE, MEDICAID, SELFPAY ==
[2023-11-27] VITALS (11 sets, daily range): BP systolic 96–139; BP diastolic 53–69; PULSE 77–117; RESP 12–30; TEMP 36.3–36.6; O2SAT 73–97; BMI 25.0
--- NOTE | 2023-11-27 05:46 | ECG_ITS ---
APPROVED REPORT Exam: Resting ECG HR:78 bpm ECG Measurements Heart Rate 78 AXES NJ 147 P 76 QRSd 100 QRS -90 QT 375 T 80 QTc 408 Conclusion SINUS RHYTHM WITH MARKED SINUS ARRHYTHMIA PATTERN CONSISTENT WITH PULMONARY DISEASE INCOMPLETE RIGHT BUNDLE BRANCH BLOCK [90+ ms QRS DURATION, TERMINAL R IN V1/V2, 40+ ms S IN I/aVL/V4/V5/V6] LEFT ANTERIOR FASCICULAR BLOCK [QRS AXIS <= -45, QR IN I, RS IN II] ABNORMAL ECG No significant changes from prior ECG Electronically signed by : OLEKSANDR SNOW, 11/27/2023 15:56:35
--- NOTE | 2023-11-27 05:49 | CT_ITS ---
PROCEDURE INFORMATION: Exam: CTA Chest With Contrast Exam date and time: 11/27/2023 6:28 AM Age: 68 years old Clinical indication: Shortness of breath; Additional info: SOA, ectopy, cancer, pna TECHNIQUE: Imaging protocol: Computed tomographic angiography of the chest with contrast. Exam focused on the arteries. 3D rendering (Not supervised by radiologist): MIP and/or 3D reconstructed images were created by the technologist. Radiation optimization: All CT scans at this facility use at least one of these dose optimization techniques: automated exposure control; mA and/or kV adjustment per patient size (includes targeted exams where dose is matched to clinical indication); or iterative reconstruction. Contrast material: ISOVUE; Contrast volume: 70 ml; Contrast route: INTRAVENOUS (IV); COMPARISON: CT ANGIO CHEST PE PROTOCOL 06/18/2022 10:27 AM FINDINGS: Pulmonary arteries: Normal. No pulmonary emboli. Aorta: Unremarkable. No aortic aneurysm. No aortic dissection. Lungs: There is a 10 mm pleural-based pulmonary nodule in the posterior aspect of the right on series 7, image 75. The spiculated nodule or scar is noted in the right upper lobe just above the minor fissure measuring 9 x 6 mm on series 7, image 60. In the left lower lobe on series 7, image 116 there is a 4 mm subpleural noncalcified nodule. Calcified granulomas are noted in the left lower lobe. The periphery of the left lower lobe on series 7, image 82 there is a 4 mm subpleural noncalcified nodule. There is notable peribronchial cuffing in the lower lobes. Subsegmental lingular and right middle lobe atelectasis is present. Pleural spaces: Unremarkable. No pneumothorax. No pleural effusion. Heart: Unremarkable. No cardiomegaly. No pericardial effusion. Coronary artery calcification is present. Lymph nodes: Right hilar lymphadenopathy is noted measuring up to 15 mm in maximum short axis dimension. Bones/joints: Unremarkable. No acute fracture. Soft tissues: Relatively symmetric gynecomastia is present.. IMPRESSION: Interval development of noncalcified pulmonary nodules. Fleischner society criteria do not apply in this patient with presumed malignancy. Suggest follow-up PET-CT, consider tissue sampling. Mild right hilar lymphadenopathy
--- NOTE | 2023-11-27 05:49 | XR_ITS ---
PROCEDURE INFORMATION: Exam: XR Chest Exam date and time: 11/27/2023 5:58 AM Age: 68 years old Clinical indication: Shortness of breath; Additional info: SOA TECHNIQUE: Imaging protocol: Radiologic exam of the chest. Views: 1 view. COMPARISON: CR XR CHEST PORTABLE 11/21/2023 11:57 PM FINDINGS: Lungs: The lungs are hyperinflated with upper lobe emphysematous change. Increased interstitial markings are noted at the lung bases. Pleural spaces: Unremarkable. No pleural effusion. No pneumothorax. Heart/Mediastinum: Unremarkable. No cardiomegaly. Bones/joints: Unremarkable. IMPRESSION: COPD. Increased markings at the lung bases.
--- NOTE | 2023-11-27 05:50 | ED_ITS ---
Discharge Plan Disposition Patient Disposition: Home, Self-Care Condition: Good Prescriptions Prescriptions: No Action levothyroxine 150 mcg tablet 150 mcg PO DAILY spironolactone 25 mg tablet 25 mg PO DAILY fluticasone propionate [Flonase Allergy Relief] 50 mcg/actuation spray,suspension 2 spray intranasal DAILY 90 Days Qty: 16 2RF Rx Instructions: administer into each nostril azelastine 137 mcg (0.1 %) aerosol,spray 2 spray intranasal HS 90 Days Qty: 30 2RF Rx Instructions: administer into each nostril Trelegy Ellipta 100-62.5-25 mcg blister with device 1 inh inhalation DAILY 90 Days Qty: 90 3RF ipratropium-albuterol 0.5 mg-3 mg(2.5 mg base)/3 mL solution for nebulization 3 ml IH QIDP PRN (Reason: shortness of breath or wheezing) metoprolol succinate 25 mg tablet extended release 24 hr 25 mg PO HS Rx Instructions: TAKE 1 TABLET BY MOUTH AT BEDTIME fluconazole [Diflucan] 100 mg tablet 100 mg PO DAILY Qty: 10 0RF lovastatin 40 MG tablet 40 mg PO HS allopurinol 300 MG tablet 300 mg PO DAILY aspirin 81 mg tablet,delayed release (DR/EC) 81 mg PO DAILY Referrals Follow up/Referrals: Kenji James MD [Primary Care Provider] - See instructions Activity Restrictions/Add. Instructions Additional Instructions/Restrictions: You were evaluated in the emergency department today. Continue taking the medications that you were discharged home from the hospital with at home as prescribed. You may also want to increase the frequency of breathing treatments to get you over the hump of this illness. 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 Return to the emergency department for new or worsening symptoms. Clinical Impressions Clinical Impression: Shortness of breath, COPD (chronic obstructive pulmonary disease) Instructions Patient Instructions: DI for Chronic Obstructive Pulmonary Disease, DI for Shortness of Breath Discharge ED Provider: Irma Carrasco HPI <Mike Da Silva MD - Last Filed: 11/27/23 06:59> General Chief Complaint: Shortness of Breath/Dyspnea Stated Complaint: low oxygen Time Seen by Provider: 11/27/23 05:41 History of Present Illness HPI narrative: 68-year-old male with history of COPD, paroxysmal A-fib, lung cancer, emphysema, CHF, hyperlipidemia, CAD presents to the ER with concerns of shortness of breath. Patient was just discharged from an admission where he had pneumonia according to family at bedside. He is still taking antibiotics. Patient continued having shortness of breath, he had significant heart rate variability today as well as high and low oxygen, despite taking his breathing treatments. Family brought patient for evaluation the ER for persistent symptoms. Reportedly he ran out of oxygen and his oxygen tank approximately 20 minutes prior to arrival. On arrival, his SpO2 was in the 60s. He was immediately placed on nasal cannula showing improvement. Related Data Home Medications Medication Instructions Recorded Confirmed allopurinol 300 mg tablet 300 mg PO DAILY 12/22/17 11/22/23 lovastatin 40 mg tablet 40 mg PO HS 12/22/17 11/22/23 aspirin 81 mg tablet,delayed 81 mg PO DAILY 08/24/20 11/22/23 release levothyroxine 150 mcg tablet 150 mcg PO DAILY thyroid 02/02/23 11/22/23 spironolactone 25 mg tablet 25 mg PO DAILY 05/11/23 11/22/23 ipratropium 0.5 mg-albuterol 3 mg 3 ml inhalation QIDP PRN shortness 11/22/23 11/22/23 (2.5 mg base)/3 mL nebulization of breath or wheezing soln metoprolol succinate 25 mg 25 mg PO HS 11/22/23 11/22/23 tablet,extended release 24 hr Previous Rx's Medication Instructions Recorded azelastine 137 mcg (0.1 %) nasal 2 spray intranasal HS 90 days #30 09/11/23 spray aerosol mL fluticasone fur. 100 mcg-umeclid 1 inh inhalation DAILY 90 days #90 11/08/23 62.5 mcg-vilant 25 mcg ea inhalat.powder (Trelegy Ellipta) fluticasone propionate 50 2 spray intranasal DAILY 90 days 11/20/23 mcg/actuation nasal #16 grams spray,suspension (Flonase Allergy Relief) fluconazole 100 mg tablet 100 mg PO DAILY #10 tabs 11/24/23 (Diflucan) Allergies Allergy/AdvReac Type Severity Reaction Status Date / Time No Known Drug Allergies Allergy Unknown Unknown Verified 11/20/23 15:11 [NKDA] allergy reaction PFSH <Mike Da Silva MD - Last Filed: 11/27/23 06:59> [facility] Disclaimer: The information contained in this section may have been updated after the patient was seen, as this information can be updated by other users. Medical History Elbow mass Swelling Hilar lymphadenopathy Allergic rhinitis History of lung or bronchial cancer Mediastinal lymphadenopathy PAF (paroxysmal atrial fibrillation) COPD (chronic obstructive pulmonary disease) Dyspnea on exertion Malignant neoplasm of unspecified part of unspecified bronchus or lung Pulmonary emphysema Smoking greater than 30 pack years Tobacco abuse disorder Lung nodule Tobacco abuse counseling HAP (hospital-acquired pneumonia) Influenza A Acute on chronic respiratory failure with hypoxia and hypercapnia Tobacco abuse AAA (abdominal aortic aneurysm) Melanoma Thyroid disease Sinus problem History of radiation therapy History of chemotherapy Cataract Myocardial infarction Lung disease Pacemaker DVT (deep venous thrombosis) Cancer Atherosclerotic heart disease Hypotension HLD (hyperlipidemia) Abnormal EKG CAD (coronary artery disease) CHF (congestive heart failure) Gout Hypertension Hypothyroidism COPD exacerbation Surgical History H/O melanoma excision History of heart artery stent History of cardiac cath History of colonoscopy Family History Gout Coronary artery disease AAA (abdominal aortic aneurysm) Heart attack Hypertension Social History Smoking Status: Current every day smoker tobacco type: cigarettes packs per day: 1 alcohol intake: former substance use type: denies use 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ional status: retired and disabled Travel in the last 8 weeks: None household members: spouse housing: house lives independently: No marital status: education level: high school service: No care home: No caffeine: No special honey needs: No agree to transfusion: No do you feel safe at home: Yes victim of physical abuse: No victim of emotional abuse: No victim of sexual abuse: No would you like helpful sources: No <Mike Da Silva MD - Last Filed: 11/27/23 06:59> ROS Obtained: Yes All systems reviewed & no additional complaints except as documented Constitutional Constitutional: Denies chills, Denies fever(s), Denies headache(s) and Denies weakness Eyes Eyes: Denies change in vision ENT Ears, Nose, Mouth, and Throat: Denies dizziness, Denies headache(s), Denies nasal congestion and Denies sore throat Cardiovascular Cardiovascular: Denies chest pain, Reports dyspnea, Denies leg edema and Reports other (Heart rate variability) Respiratory Respiratory: Reports cough and Reports dyspnea Gastrointestinal Gastrointestingal: Denies constipation, diarrhea, nausea or vomiting Genitourinary Male Genitourinary: Denies difficulty urinating Musculoskeletal Musculoskeletal: Denies arthralgias, Denies myalgias, Denies numbness and Denies tingling Integumentary/Breasts Skin/Breast: Denies change in pigmentation Neurologic Neurologic: Denies dizziness, Denies headache(s), Denies numbness, Denies tingling and Denies weakness Physical Exam <Mike Da Silva MD - Last Filed: 11/27/23 06:59> General General appearance: alert and in no apparent distress Head Head exam: atraumatic and normocephalic Eye Eye exam: Present PERRL and EOMI ENT ENT exam: Present mucous membranes moist Neck Neck exam: Present normal inspection and full ROM Chest Chest inspection: Present symmetric chest wall rise Respiratory Respiratory exam: Present wheezes and other (Significantly increased work of breathing, patient steadily improved from oxygen the 60s to oxygen in the 90s. He is now on his home nasal cannula); Absent respiratory distress or stridor Cardiovascular Cardiovascular exam: Present regular rate and normal rhythm Abdominal Exam Abdominal exam: Present soft; Absent distention or tenderness Extremities Exam Extremities exam: Present full ROM Neurological Exam Neurological exam: Present alert and oriented X3; Absent motor sensory deficit Psychiatric Psychiatric exam: Present normal affect and normal mood Skin Skin exam: Present warm and dry HEART Score <Mike Da Silva MD - Last Filed: 11/27/23 06:59> HEART Score HEART Score assessment performed?: Yes History (anamnesis): Slightly suspicious ECG: Non-specific disturbance Age: >65 years Risk factors: 1-2 risk factors Troponin: </= normal limit HEART Score: 4 <Irma Carrasco DO - Last Filed: 11/27/23 12:30> HEART Score HEART Score: 4 Critical Care <Mike Da Silva MD - Last Filed: 11/27/23 06:59> Critical Care Time Critical Care Time: No Medical Decision Making <Mike Da Silva MD - Last Filed: 11/27/23 06:59> Medical Records Medical records reviewed: Yes I reviewed the patient's medical records. MR Comment: Reviewed most recent note from patient's admission with Dr. Wang, sputum grew yeast, patient was started on Diflucan and discharged on this medication. Lanre Inquiry Pt receiving controlled substance: No Vital Signs Vital Signs: 11/27/23 05:37 11/27/23 06:00 11/27/23 06:01 Temperature 97.3 F L Temperature Source Oral Pulse Rate 78 79 Pulse Rate [Left] 82 Respiratory Rate 13 16 Blood Pressure 102/63 L Blood Pressure [Right Arm] 104/62 L Blood Pressure Mean Blood Pressure Mean [Right Arm] 76 Blood Pressure Source Blood Pressure Source [Right Arm] Automatic Cuff Blood Pressure Position Blood Pressure Position [Right Arm] Sitting 02 Sat by Pulse Oximetry 96 96 Oxygen Delivery Method Nasal Cannula Room Air Oxygen Flow Rate (LPM) 3 11/27/23 06:01 11/27/23 07:00 11/27/23 07:30 Temperature Temperature Source Pulse Rate 77 82 78 Pulse Rate [Left] Respiratory Rate 13 16 Blood Pressure 105/54 L 102/54 L Blood Pressure [Right Arm] Blood Pressure Mean Blood Pressure Mean [Right Arm] Blood Pressure Source Blood Pressure Source [Right Arm] Blood Pressure Position Blood Pressure Position [Right Arm] 02 Sat by Pulse Oximetry 97 96 Oxygen Delivery Method Nasal Cannula Nasal Cannula Oxygen Flow Rate (LPM) 3 3 11/27/23 08:00 11/27/23 08:30 11/27/23 08:45 Temperature Temperature Source Pulse Rate 94 H 117 H Pulse Rate [Left] Respiratory Rate 16 12 30 H Blood Pressure 98/53 L 139/69 Blood Pressure [Right Arm] Blood Pressure Mean Blood Pressure Mean [Right Arm] Blood Pressure Source Blood Pressure Source [Right Arm] Blood Pressure Position Blood Pressure Position [Right Arm] 02 Sat by Pulse Oximetry 96 95 73 L Oxygen Delivery Method Nasal Cannula Nasal Cannula Nasal Cannula Oxygen Flow Rate (LPM) 3 3 11/27/23 08:47 11/27/23 09:00 11/27/23 11:13 Temperature 97.9 F Temperature Source Oral Pulse Rate 89 89 Pulse Rate [Left] Respiratory Rate 26 H 21 21 Blood Pressure 96/65 L 96/65 L Blood Pressure [Right Arm] Blood Pressure Mean 72 Blood Pressure Mean [Right Arm] Blood Pressure Source Automatic Cuff Blood Pressure Source [Right Arm] Blood Pressure Position Sitting Blood Pressure Position [Right Arm] 02 Sat by Pulse Oximetry 88 L 95 Oxygen Delivery Method Nasal Cannula Nasal Cannula Nasal Cannula Oxygen Flow Rate (LPM) 4 3 3 Lab Data Labs: Lab Results 11/27/23 05:25: WBC 3.2 L, RBC 4.49 L, Hgb 14.2, Hct 44.5, MCV 99.2 H, MCH 31.6 H, MCHC 31.9, RDW 16.5, Plt Count 87 L, MPV 9.4, Neut % (Auto) 48.7, Lymph % (Auto) 36.0, [place] % (Auto) 11.5 H, Eos % (Auto) 1.5, Baso % (Auto) 2.1 H, Neut # (Auto) 1.6 L, Lymph # (Auto) 1.2, [place] # (Auto) 0.4, Eos # (Auto) 0.1, Baso # (Auto) 0.1, Sodium 132 L, Potassium 4.7, Chloride 85 L, Carbon Dioxide 46 H*, Anion Gap 5.7, BUN 11 D, Creatinine 0.60 L, Estimated Creat Clear 73, Estimated GFR 133, Est GFR ( Amer) 161, Glucose 100, Calcium 9.7, Total Bilirubin 0.9, AST 32, ALT 20, Alkaline Phosphatase 74, Troponin I < 0.01, Total Protein 7.6, Albumin 4.1, Globulin 3.5 H, Albumin/Globulin Ratio 1.2 11/27/23 05:49: VBG pH 7.38, VBG pCO2 72.9 H, VBG pO2 29.2, VBG HCO3 42.0 H, VBG Total CO2 44.2 H, VBG O2 Saturation 50.4, VBG Base Excess 16.8 H, VBG Lactic Acid 1.3 11/27/23 08:03: Troponin I < 0.01 11/27/23 05:25 11/27/23 05:25 Response Orders (Tests/Meds): ED MEDICATIONS Discontinued Medications Generic Name Dose Route Start Last Admin Trade Name Freq PRN Reason Stop Dose Admin Albuterol/Ipratropium 9 ml 11/27/23 05:49 11/27/23 06:01 Ipratropium/Albuterol 3 Ml Neb IH 11/27/23 05:50 9 ml ONCE ONE Administration Albuterol/Ipratropium 9 ml 11/27/23 08:15 11/27/23 08:20 Ipratropium/Albuterol 3 Ml Neb IH 11/27/23 08:16 9 ml ONCE ONE Administration Iopamidol 70 ml 11/27/23 06:37 11/27/23 06:38 Iopamidol-370 (76%);100ml Bottle IV 11/27/23 06:38 70 ml ONCE ONE Administration Sodium Chloride 50 ml 11/27/23 06:37 11/27/23 06:38 0.9 % Sodium Chloride 50 Ml Vial IV 11/27/23 06:38 50 ml ONCE ONE Administration Sodium Chloride 10 ml 11/27/23 06:37 11/27/23 06:37 Sodium Chloride 0.9% 10ml Syr (Rad Only) IV 12/27/23 06:36 10 ml NEEDED PRN Administration Maintain IV Site ORDERS Category Date Time Status CT angio chest PE protocol Stat Cat Scan 11/27/23 05:49 Completed CXR --portable [XR chest portable] Stat Exams 11/27/23 05:49 Completed CBC w/Auto Diff [Complete Blood Count Auto Diff] Stat Lab 11/27/23 05:25 Completed CMP [Comprehensive Metabolic Panel] Stat Lab 11/27/23 05:25 Completed Trop I [Troponin I] Stat Lab 11/27/23 05:25 Completed Troponin I Q3H Lab 11/27/23 08:03 Completed VBG [Venous Blood Gas] Stat RT 11/27/23 05:49 Completed MDM Narrative Medical Decision Narrative: In summary, this 68year old male presents to the emergency department today with concerns of shortness of breath. On initial evaluation patient is hemodynamically stable, afebrile, he is having significant ectopy on the monitor with multiple runs of PVCs, he presented hypoxic in respiratory distress but quickly improved once he was placed on nasal cannula, he is wheezing in all of his lung perez, no rhonchi or rales, site of recent left breast abscess is well-appearing. Differential diagnosis includes but is not limited to ACS, PE, electrolyte abnormality, arrhythmia, pneumonia, pneumothorax, advancing pulmonary disease. Based on these concerns, I ordered cardiac workup, CTA PE, basic labs, VBG, DuoNebs for treatment. ECG personally interpreted demonstrates sinus rhythm, rate 78, normal [place], normal QTc, normal axis, patient has significant sinus arrhythmia, no STEMI.. Patient received DuoNebs for treatment. Labs personally reviewed demonstrate leukopenia similar to prior, thrombocytopenia improved from prior based off my review of recent labs, VBG with pH normal at 7.38, patient does have hypercarbia with pCO2 72.9, similar to prior, mild hyponatremia, no findings of kidney or liver dysfunction, initial troponin undetectably low at less than 0.01. XR personally interpreted demonstrates significant chronic pulmonary disease, no obvious new infiltrate, radiology read pending. CT imaging personally interpreted demonstrate no obvious large pulmonary embolism. Radiology read pending. On reassessment patient is on his home nasal cannula, he has a sensation of shortness of breath but is saturating well. Air movement improved after DuoNebs. Patient handed off to Dr. Carrasco at physician shift change for further management and disposition pending imaging results and serial troponin. <Irma Carrasco, DO - Last Filed: 11/27/23 12:30> Vital Signs Vital Signs: 11/27/23 05:37 11/27/23 06:00 11/27/23 06:01 Temperature 97.3 F L Temperature Source Oral Pulse Rate 78 79 Pulse Rate [Left] 82 Respiratory Rate 13 16 Blood Pressure 102/63 L Blood Pressure [Right Arm] 104/62 L Blood Pressure Mean Blood Pressure Mean [Right Arm] 76 Blood Pressure Source Blood Pressure Source [Right Arm] Automatic Cuff Blood Pressure Position Blood Pressure Position [Right Arm] Sitting 02 Sat by Pulse Oximetry 96 96 Oxygen Delivery Method Nasal Cannula Room Air Oxygen Flow Rate (LPM) 3 11/27/23 06:01 11/27/23 07:00 11/27/23 07:30 Temperature Temperature Source Pulse Rate 77 82 78 Pulse Rate [Left] Respiratory Rate 13 16 Blood Pressure 105/54 L 102/54 L Blood Pressure [Right Arm] Blood Pressure Mean Blood Pressure Mean [Right Arm] Blood Pressure Source Blood Pressure Source [Right Arm] Blood Pressure Position Blood Pressure Position [Right Arm] 02 Sat by Pulse Oximetry 97 96 Oxygen Delivery Method Nasal Cannula Nasal Cannula Oxygen Flow Rate (LPM) 3 3 11/27/23 08:00 11/27/23 08:30 11/27/23 08:45 Temperature Temperature Source Pulse Rate 94 H 117 H Pulse Rate [Left] Respiratory Rate 16 12 30 H Blood Pressure 98/53 L 139/69 Blood Pressure [Right Arm] Blood Pressure Mean Blood Pressure Mean [Right Arm] Blood Pressure Source Blood Pressure Source [Right Arm] Blood Pressure Position Blood Pressure Position [Right Arm] 02 Sat by Pulse Oximetry 96 95 73 L Oxygen Delivery Method Nasal Cannula Nasal Cannula Nasal Cannula Oxygen Flow Rate (LPM) 3 3 11/27/23 08:47 11/27/23 09:00 11/27/23 11:13 Temperature 97.9 F Temperature Source Oral Pulse Rate 89 89 Pulse Rate [Left] Respiratory Rate 26 H 21 21 Blood Pressure 96/65 L 96/65 L Blood Pressure [Right Arm] Blood Pressure Mean 72 Blood Pressure Mean [Right Arm] Blood Pressure Source Automatic Cuff Blood Pressure Source [Right Arm] Blood Pressure Position Sitting Blood Pressure Position [Right Arm] 02 Sat by Pulse Oximetry 88 L 95 Oxygen Delivery Method Nasal Cannula Nasal Cannula Nasal Cannula Oxygen Flow Rate (LPM) 4 3 3 Lab Data Labs: Lab Results 11/27/23 05:25: WBC 3.2 L, RBC 4.49 L, Hgb 14.2, Hct 44.5, MCV 99.2 H, MCH 31.6 H, MCHC 31.9, RDW 16.5, Plt Count 87 L, MPV 9.4, Neut % (Auto) 48.7, Lymph % (Auto) 36.0, [place] % (Auto) 11.5 H, Eos % (Auto) 1.5, Baso % (Auto) 2.1 H, Neut # (Auto) 1.6 L, Lymph # (Auto) 1.2, [place] # (Auto) 0.4, Eos # (Auto) 0.1, Baso # (Auto) 0.1, Sodium 132 L, Potassium 4.7, Chloride 85 L, Carbon Dioxide 46 H*, Anion Gap 5.7, BUN 11 D, Creatinine 0.60 L, Estimated Creat Clear 73, Estimated GFR 133, Est GFR ( Amer) 161, Glucose 100, Calcium 9.7, Total Bilirubin 0.9, AST 32, ALT 20, Alkaline Phosphatase 74, Troponin I < 0.01, Total Protein 7.6, Albumin 4.1, Globulin 3.5 H, Albumin/Globulin Ratio 1.2 11/27/23 05:49: VBG pH 7.38, VBG pCO2 72.9 H, VBG pO2 29.2, VBG HCO3 42.0 H, VBG Total CO2 44.2 H, VBG O2 Saturation 50.4, VBG Base Excess 16.8 H, VBG Lactic Acid 1.3 11/27/23 08:03: Troponin I < 0.01 Response Orders (Tests/Meds): ED MEDICATIONS Discontinued Medications Generic Name Dose Route Start Last Admin Trade Name Freq PRN Reason Stop Dose Admin Albuterol/Ipratropium 9 ml 11/27/23 05:49 11/27/23 06:01 Ipratropium/Albuterol 3 Ml [facility] 11/27/23 05:50 9 ml ONCE ONE Administration Albuterol/Ipratropium 9 ml 11/27/23 08:15 11/27/23 08:20 Ipratropium/Albuterol 3 Ml [facility] 11/27/23 08:16 9 ml ONCE ONE Administration Iopamidol 70 ml 11/27/23 06:37 11/27/23 06:38 Iopamidol-370 (76%);100ml Bottle IV 11/27/23 06:38 70 ml ONCE ONE Administration Sodium Chloride 50 ml 11/27/23 06:37 11/27/23 06:38 0.9 % Sodium Chloride 50 Ml Vial IV 11/27/23 06:38 50 ml ONCE ONE Administration Sodium Chloride 10 ml 11/27/23 06:37 11/27/23 06:37 Sodium Chloride 0.9% 10ml Syr (Rad Only) IV 12/27/23 06:36 10 ml NEEDED PRN Administration Maintain IV Site ORDERS Category Date Time Status CT angio chest PE protocol Stat Cat Scan 11/27/23 05:49 Completed CXR --portable [XR chest portable] Stat Exams 11/27/23 05:49 Completed CBC w/Auto Diff [Complete Blood Count Auto Diff] Stat Lab 11/27/23 05:25 Completed CMP [Comprehensive Metabolic Panel] Stat Lab 11/27/23 05:25 Completed Trop I [Troponin I] Stat Lab 11/27/23 05:25 Completed Troponin I Q3H Lab 11/27/23 08:03 Completed VBG [Venous Blood Gas] Stat RT 11/27/23 05:49 Completed ECG Data Tracing #1: Attestation: I reviewed this ECG and interpreted as documented below: ECG Narrative: Normal sinus rhythm with sinus arrhythmia with a ventricular rate of [address] changes concerning for ischemia. Incomplete right bundle branch block noted. Frequent PACs. No acute changes from prior EKG. ECG initial impression date: 11/27/23 ECG initial impression time: 09:37 MDM Narrative Medical Decision Narrative: In summary, this 68year old male presents to the emergency department today with concerns of shortness of breath. On initial evaluation patient is hemodynamically stable, afebrile, he is having significant ectopy on the monitor with multiple runs of PVCs, he presented hypoxic in respiratory distress but quickly improved once he was placed on nasal cannula, he is wheezing in all of his lung perez, no rhonchi or rales, site of recent left breast abscess is well-appearing. Differential diagnosis includes but is not limited to ACS, PE, electrolyte abnormality, arrhythmia, pneumonia, pneumothorax, advancing pulmonary disease. Based on these concerns, I ordered cardiac workup, CTA PE, basic labs, VBG, DuoNebs for treatment. ECG personally interpreted demonstrates sinus rhythm, rate 78, normal [place], normal QTc, normal axis, patient has significant sinus arrhythmia, no STEMI.. Patient received DuoNebs for treatment. Labs personally reviewed demonstrate leukopenia similar to prior, thrombocytopenia improved from prior based off my review of recent labs, VBG with pH normal at 7.38, patient does have hypercarbia with pCO2 72.9, similar to prior, mild hyponatremia, no findings of kidney or liver dysfunction, initial troponin undetectably low at less than 0.01. XR personally interpreted demonstrates significant chronic pulmonary disease, no obvious new infiltrate, radiology read pending. CT imaging personally interpreted demonstrate no obvious large pulmonary embolism. Radiology read pending. On reassessment patient is on his home nasal cannula, he has a sensation of shortness of breath but is saturating well. Air movement improved after DuoNebs. Patient handed off to Dr. Carrasco at physician shift change for further management and disposition pending imaging results and serial troponin. Danilo, DO: On my assessment of the patient, he states that he is feeling a little bit better but he still feels ill overall. He is still resting comfortably on his home 3 L nasal cannula. He does sound very wheezy, so 3 DuoNebs were ordered. Initial labs are reassuring with second troponin pending. He does have mild leukopenia, which could suggest viral suppression. He does have chronic compensated respiratory failure with elevated CO2 but normal pH. At 0700, patient was placed in ED observation status pending second troponin to determine whether or not the patient would be appropriate for discharge versus admission. The patient was provided serial reevaluations and cardiac monitoring while awaiting ultimate disposition. Ultimately, second troponin came back negative. Patient had significant improvement after administration of DuoNeb's. He states he is only doing them 2-3 times a day at home, so I feel he would benefit from increasing the frequency presented medic improvement. He ambulated throughout the emergency department without desaturating on his home nasal cannula. Repeat EKG was reassuring. Given this, I do not feel that patient requires admission for further evaluation and management at this time. He is already on treatment for pneumonia and COPD exacerbation as an outpatient. We contacted his oxygen supplier to make sure that he has adequate supply at home, and ultimately he was discharged home in stable condition after all questions were answered. Strict return precautions and instructions for close immediate follow-up were given as well as instructions for increase nebulizer frequency.
[2023-11-27] MEDS: IPRATROPIUM/ALBUTEROL 3 ML NEB 9 ML IH ×2 (06:01→08:20)
[2023-11-27 06:02] LABS: Alanine Aminotransferase 20 U/L (12-78); Albumin Level 4.1 g/dl (3.5-5.0); Albumin/Globulin Ratio 1.2 (1.1-1.8); Alkaline Phosphatase 74 U/L (38-126); Aspartate Amino Transferase 32 U/L (17-59); Bilirubin,Total 0.9 mg/dl (0.2-1.3); Blood Urea Nitrogen 11 mg/dl (9-20); Calcium 9.7 mg/dl (8.4-10.2); Chloride 85 mmol/L (98-107); Creatinine Clearance Estimated 73 mL/min (50-200); Estimated Glomerular Filt Rate 133 ml/min (>60); GFR (African American) 161 ML/MIN (>60); Globulin 3.5 g/dL (1.3-3.2); Glucose 100 mg/dl (74-100); Sodium 132 mmol/L (136-145); Total Protein,Serum 7.6 g/dl (6.3-8.2)
[2023-11-27 06:10] LABS: Basophils # 0.1 K/mm3 (0-0.2); Basophils % 2.1 % (0.1-2.0); Eosinophils # 0.1 K/mm3 (0.0-0.4); Eosinophils % 1.5 % (0.1-12.0); Hematocrit 44.5 % (42.0-52.0); Hemoglobin 14.2 g/dL (14.1-18.0); Lymphocytes # 1.2 K/mm3 (0.7-4.5); Mean Corpuscular HGB Conc 31.9 g/dL (31.8-35.4); Mean Corpuscular Hemoglobin 31.6 pg (27.0-31.2); Mean Corpuscular Volume 99.2 fl (80-94); Mean Platelet Volume 9.4 fl (7.4-10.4); Monocytes # 0.4 K/mm3 (0.1-1.0); Monocytes % 11.5 % (1.7-9.3); Neutrophils # 1.6 K/mm3 (1.8-7.8); Neutrophils % 48.7 % (37.0-80.0); Platelet Count 87 K/mm3 (142-424); Red Blood Count 4.49 M/mm3 (4.60-6.20); Red Cell Distribution Width 16.5 % (11.5-17.5); White Blood Count 3.2 K/mm3 (4.8-10.8)
[2023-11-27 06:13] LABS: Carbon Dioxide 46 mmol/L (22.0-30.0)
[2023-11-27 06:19] LABS: Lactate Venous 1.3 mmol/L (0.4-2.0); VBG Base Excess 16.8 mmol/L (-2.4-2.3); VBG Oxygen Saturation 50.4 % (50-70); VBG PCO2 72.9 mmol/L (35-51); VBG PH 7.38 mmol/L (7.31-7.41); VBG PO2 29.2 mmol/L (28-40); VBG Total CO2 44.2 mmol/L (23-27)
[2023-11-27 06:28] LABS: Troponin I < 0.01 ng/ml (0.00-0.034)
[2023-11-27 06:29] LABS: Anion Gap 5.7 mEq/L (5-15); Potassium 4.7 mmoL/L (3.5-5.1)
[2023-11-27] MEDS: SODIUM CHLORIDE 0.9% 10ML SYR (RAD ONLY) 10 ML IV (06:37)
[2023-11-27] MEDS: 0.9 % SODIUM CHLORIDE 50 ML VIAL IV (06:38)
[2023-11-27] MEDS: IOPAMIDOL-370 (76%);100ML BOTTLE 70 ML IV (06:38)
[2023-11-27 08:40] LABS: Troponin I < 0.01 ng/ml (0.00-0.034)
--- NOTE | 2023-11-27 09:35 | ECG_ITS ---
APPROVED REPORT Exam: Resting ECG HR:82 bpm ECG Measurements Heart Rate 82 AXES SC 141 P 83 QRSd 109 QRS 257 QT 382 T 79 QTc 420 Conclusion SINUS RHYTHM WITH OCCASIONAL SUPRAVENTRICULAR PREMATURE COMPLEXES INDETERMINATE AXIS PATTERN CONSISTENT WITH PULMONARY DISEASE INCOMPLETE RIGHT BUNDLE BRANCH BLOCK [90+ ms QRS DURATION, TERMINAL R IN V1/V2, 40+ ms S IN I/aVL/V4/V5/V6] ABNORMAL ECG Electronically signed by : OLEKSANDR SNOW, 11/27/2023 15:53:56
--- NOTE | 2023-11-27 11:03 | PC.NURSE ---
[facility] at bedside
== END 2023-11-27 11:15 | disposition home or self-care (01) ==
PROVIDERS: Emergency Medicine; Emergency Provider Emergency Medicine; PCP Family Medicine
DX: R09.02 Hypoxemia (principal)
CPT/HCPCS: 71045; 71275; 80053; 82803; 84484; 85025; 93005; Q9967

== ENCOUNTER 2023-11-28 16:28 | Inpatient (IN) | payer MEDICARE, MEDICAID, SELFPAY ==
[2023-11-28] VITALS (8 sets, daily range): BP systolic 96–126; BP diastolic 56–68; PULSE 73–112; RESP 18–24; TEMP 36.4–36.9; O2SAT 91–97; BMI 22.8; BMI 25.1; BMI 24.3
--- NOTE | 2023-11-28 16:45 | ED_ITS ---
Discharge Plan Disposition Patient Disposition: Admitted Condition: Serious Clinical Impressions Clinical Impression: Acute hypoxic on chronic hypercapnic respiratory failure, Acute exacerbation of chronic obstructive pulmonary disease, Metastatic malignant neoplasm Discharge ED Provider: Francisco Alonzo General Adult HPI <JOSÉ Wang - Last Filed: 11/28/23 18:30> General Chief complaint: Shortness of Breath/Dyspnea Stated complaint: SOA Time Seen by Provider: 11/28/23 16:35 History of Present Illness HPI narrative: Patient presents for evaluation of dyspnea. Patient has a long pulmonary history of COPD and emphysema, previous intermittent evening oxygen, previous lung cancer status post chemoradiation approximately 2 years ago and now with known recurrence who has recently started chemotherapy that is reportedly probable palliative. Patient had a recent admission for respiratory failure and what was thought to possibly be pneumonia although note no definitive infiltrate or organism was isolated. He was discharged on continuous oxygen however. Patient presented to the emergency department on Monday for worsening pulmonary status and no acute process was noted and he improved with treatment in the emergency department so he was discharged home. However patient is continued to decline over the weekend requiring increasing of his oxygen along with every 3 hour to 4-hour nebulizer treatments. Patient presents today and rapidly desaturates down into the 80s off of oxygen. He denies chest pain fever chills hemoptysis hematochezia melena nausea vomiting diarrhea but does report a wet cough. Related Data Home Medications Medication Instructions Recorded Confirmed allopurinol 300 mg tablet 300 mg PO DAILY 12/22/17 11/28/23 lovastatin 40 mg tablet 40 mg PO HS 12/22/17 11/28/23 aspirin 81 mg tablet,delayed 81 mg PO DAILY 08/24/20 11/28/23 release levothyroxine 150 mcg tablet 150 mcg PO DAILY thyroid 02/02/23 11/28/23 spironolactone 25 mg tablet 25 mg PO DAILY 05/11/23 11/28/23 ipratropium 0.5 mg-albuterol 3 mg 3 ml inhalation QIDP PRN shortness 11/22/23 11/28/23 (2.5 mg base)/3 mL nebulization of breath or wheezing soln metoprolol succinate 25 mg 25 mg PO HS 11/22/23 11/28/23 tablet,extended release 24 hr Previous Rx's Medication Instructions Recorded azelastine 137 mcg (0.1 %) nasal 2 spray intranasal HS 90 days #30 09/11/23 spray aerosol mL fluticasone fur. 100 mcg-umeclid 1 inh inhalation DAILY 90 days #90 11/08/23 62.5 mcg-vilant 25 mcg ea inhalat.powder (Trelegy Ellipta) fluticasone propionate 50 2 spray intranasal DAILY 90 days 11/20/23 mcg/actuation nasal #16 grams spray,suspension (Flonase Allergy Relief) fluconazole 100 mg tablet 100 mg PO DAILY #10 tabs 11/24/23 (Diflucan) Allergies Allergy/AdvReac Type Severity Reaction Status Date / Time No Known Drug Allergies Allergy Unknown Unknown Verified 11/20/23 15:11 [NKDA] allergy reaction [facility] <JOSÉ Wang - Last Filed: 11/28/23 18:30> [facility] Disclaimer: The information contained in this section may have been updated after the patient was seen, as this information can be updated by other users. Medical History Elbow mass Swelling Hilar lymphadenopathy Allergic rhinitis History of lung or bronchial cancer Mediastinal lymphadenopathy PAF (paroxysmal atrial fibrillation) COPD (chronic obstructive pulmonary disease) Dyspnea on exertion Malignant neoplasm of unspecified part of unspecified bronchus or lung Pulmonary emphysema Smoking greater than 30 pack years Tobacco abuse disorder Lung nodule Tobacco abuse counseling HAP (hospital-acquired pneumonia) Influenza A Acute on chronic respiratory failure with hypoxia and hypercapnia Tobacco abuse AAA (abdominal aortic aneurysm) Melanoma Thyroid disease Sinus problem History of radiation therapy History of chemotherapy Cataract Myocardial infarction Lung disease Pacemaker DVT (deep venous thrombosis) Cancer Atherosclerotic heart disease Hypotension HLD (hyperlipidemia) Abnormal EKG CAD (coronary artery disease) CHF (congestive heart failure) Gout Hypertension Hypothyroidism COPD exacerbation Surgical History H/O melanoma excision History of heart artery stent History of cardiac cath History of colonoscopy Family History Gout Coronary artery disease AAA (abdominal aortic aneurysm) Heart attack Hypertension Social History Smoking Status: Former smoker tobacco type: cigarettes packs per day: 1 alcohol intake: former substance use type: denies use 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ional status: retired and disabled Travel in the last 8 weeks: None household members: spouse housing: house lives independently: No marital status: education level: high school service: No retirement: No caffeine: No special honey needs: No agree to transfusion: No do you feel safe at home: Yes victim of physical abuse: No victim of emotional abuse: No victim of sexual abuse: No would you like helpful sources: No <JOSÉ Wang - Last Filed: 11/28/23 18:30> ROS Obtained: Yes Systems reviewed as appropriate & no additional complaints except as documented Physical Exam <JOSÉ Wang - Last Filed: 11/28/23 18:30> General General appearance: alert, in no apparent distress and cachectic (And unwell appearing) Respiratory Respiratory exam: Absent normal lung sounds bilaterally (Patient has wet coarse breath sounds on auscultation with diminished breath sounds at the bases along with end expiratory Rales) or accessory muscle use Cardiovascular Cardiovascular exam: Present regular rate, normal rhythm and normal heart sounds Abdominal Exam Abdominal exam: Present soft and normal bowel sounds; Absent tenderness Extremities Exam Extremities exam: Present normal inspection and full ROM; Absent edema Back Exam Back exam: Present normal inspection and full ROM; Absent tenderness Neurological Exam Neurological exam: Present alert, oriented X3 and CN II-XII intact Psychiatric Psychiatric exam: Present normal affect and normal mood Skin Skin exam: Present warm, dry and normal color Medical Decision Making <JOSÉ Wang - Last Filed: 11/28/23 18:30> Medical Records Medical records reviewed: Yes I reviewed the patient's medical records. Lanre Inquiry Pt receiving controlled substance: No Vital Signs: 11/28/23 16:29 11/28/23 17:18 11/28/23 17:30 Temperature 98.1 F Temperature Source Oral Pulse Rate 84 73 Pulse Rate [Right Radial] 112 H Respiratory Rate 24 Blood Pressure 115/68 112/59 L Blood Pressure [Right Arm] 120/66 Blood Pressure Mean 90 81 Blood Pressure Mean [Right Arm] 84 02 Sat by Pulse Oximetry 92 L Oxygen Delivery Method Nasal Cannula Oxygen Flow Rate (LPM) 2 11/28/23 18:00 11/28/23 18:18 Temperature Temperature Source Pulse Rate 87 74 Pulse Rate [Right Radial] Respiratory Rate Blood Pressure 96/56 L Blood Pressure [Right Arm] Blood Pressure Mean Blood Pressure Mean [Right Arm] 02 Sat by Pulse Oximetry 91 L Oxygen Delivery Method Nasal Cannula Oxygen Flow Rate (LPM) 4 Lab Data Lab results reviewed: Yes I reviewed the patient's lab results. Lab Results 11/28/23 16:57: WBC 3.0 L, RBC 4.32 L, Hgb 13.7 L, Hct 43.8, MCV 101.4 H, MCH 31.7 H, MCHC 31.3 L, RDW 16.2, Plt Count 109 L D, MPV 10.1, Neut % (Auto) 58.0, Lymph % (Auto) 24.1, Ocean % (Auto) 12.4 H, Eos % (Auto) 3.3, Baso % (Auto) 2.1 H , Neut # (Auto) 1.7 L, Lymph # (Auto) 0.7, Ocean # (Auto) 0.4, Eos # (Auto) 0.1, Baso # (Auto) 0.1, Sodium 130 L, Potassium 4.7, Chloride 81 L, Carbon Dioxide 45 H*, Anion Gap 8.7, BUN 13, Creatinine 0.50 L, Estimated Creat Clear 73, Estimated GFR 164, Est GFR ( Amer) 199 D, Glucose 96, Calcium 9.7, Magnesium 1.6, Total Bilirubin 0.7, AST 28, ALT 18, Alkaline Phosphatase 70, Troponin I < 0.01, Total Protein 7.7, Albumin 4.1, Globulin 3.6 H, Albumin/Globulin Ratio 1.1, Procalcitonin 0.052 11/28/23 17:08: Specimen Source Left radial, O2 % 4lpm, ABG pH 7.31 L, ABG pCO2 84.4 H, ABG pO2 55.1 L, ABG HCO3 41.8 H, ABG Total CO2 44.4 H, ABG O2 Saturation 88 L, ABG Base Excess 15.6 H, Collin Test Acceptable 11/28/23 17:18: Chlamy pneumoniae PCR Not detected, Adenovirus (PCR) Not detected, B. pertussis DNA (PCR) Not detected, Coronavirus OC43 (PCR) Not detected, Coronavirus HKU1 (PCR) Not detected, Coronavirus 229E (PCR) Not detected, SARS-CoV-2 (PCR) Not detected, Coronavirus NL63 (PCR) Not detected, Human Metapneumovir PCR Not detected, Influenza A (H1) PCR Not detected, Influ A (H1N1/09) PCR Not detected, Influenza A (H3) PCR Not detected, Influenza Type A (PCR) Not detected, Influenza Type B (PCR) Not detected, M. pneumoniae (PCR) Not detected, Parainfluenza 1 (PCR) Not detected, Parainfluenza 2 (PCR) Not detected, Parainfluenza 3 (PCR) Not detected, Parainfluenza 4 (PCR) Not detected, RSV (PCR) Not detected, Entero/Rhino (PCR) Not detected 11/28/23 16:57 11/28/23 16:57 Orders (Tests/Meds): ED MEDICATIONS Generic Name Dose Route Start Last Admin Trade Name Freq PRN Reason Stop Dose Admin Sodium Chloride 3 ml 11/28/23 18:09 11/28/23 18:18 Sodium Chloride 3% 15ml Replaced by [facility] 12/28/23 17:06 3 ml ONCE PRN Administration INDUCE SPUTUM COLLECTION Sodium Chloride 10 ml 11/28/23 18:14 Sodium Chloride 0.9% 10ml Flush Syringe IV 12/28/23 18:13 NEEDED PRN Maintain IV Site Discontinued Medications Generic Name Dose Route Start Last Admin Trade Name Freq PRN Reason Stop Dose Admin Albuterol/Ipratropium 3 ml 11/28/23 17:02 11/28/23 17:05 Ipratropium/Albuterol 3 Ml Replaced by [facility] 11/28/23 17:03 3 ml ONCE ONE Administration Furosemide 40 mg 11/28/23 17:57 11/28/23 18:09 Furosemide 40mg/4ml Vial IV 11/28/23 17:58 40 mg ONCE ONE Administration Furosemide 40 mg 11/28/23 18:09 11/28/23 18:11 Furosemide 40mg/4ml Vial IV 11/28/23 18:10 Not Given ONCE ONE Methylprednisolone Sodium Succinate 125 mg 11/28/23 17:08 11/28/23 17:15 Methylprednisolone Sod Succ 125mg Vial IV 11/28/23 17:09 125 mg ONCE ONE Administration Sodium Chloride 3 ml 11/28/23 17:07 Sodium Chloride 3% 15ml Replaced by [facility] 12/28/23 17:06 ONCE PRN INDUCE SPUTUM COLLECTION ORDERS Category Date Time Status CT angio chest PE protocol Stat Cat Scan 11/28/23 17:07 Completed CXR --portable [XR chest portable] Stat Exams 11/28/23 17:00 Completed Complete Blood Count Auto Diff Stat Lab 11/28/23 16:57 Completed Comprehensive Metabolic Panel Stat Lab 11/28/23 16:57 Completed Full Resp Panel w/COVID (H) Routine Lab 11/28/23 17:18 Completed Magnesium Stat Lab 11/28/23 16:57 Completed Procalcitonin Stat Lab 11/28/23 16:57 Completed Troponin I Q3H Lab 11/28/23 19:54 Received Troponin I Q3H Lab 11/28/23 23:00 Ordered Troponin I Stat Lab 11/28/23 16:57 Completed Sputum Culture & Gram Stain Stat Micro 11/28/23 17:07 Ordered ABG [Arterial Blood Gas] Stat RT 11/28/23 17:08 Completed Medical Decision Narrative: In summary patient is a 68-year-old male who presents to the emergency department for evaluation of dyspnea. Patient is initially normotensive with a heart rate of 120/66 with a pulse of 112 satting at 92% on 3 L by nasal cannula with respiratory rate of 24 upon arrival, and afebrile. Physical exam is remarkable for coarse wet breath sounds diminished at the bases with end expiratory rhonchi. Differential diagnosis includes COPD exacerbation postobstructive pneumonia, heart failure, acute on chronic respiratory failure, PE, ACS, viral or bacterial infection etc. Initial workup will be conducted with hematologic labs plain film x-ray twelve-lead EKG CTA of the chest. Initial interventions include DuoNeb, Solu-Medrol, Lasix. Initial workup reviewed by me hematologic labs show pancytopenia with an absolute neutrophil count of 1.7 today and his ABG shows hypercapnia and hypoxemia with preserved pH. My informal interpretation of his CTA of the chest does not show any evidence of acute thrombus however shows bibasilar atelectasis versus very small effusions and interstitial mosaic pattern appears to be pulmonary edema along with bronchial wall thickening but no discrete infiltrates noted with radiologist read pending.. Upon repeat evaluation patient still cannot be weaned off down off of oxygen at all. Given this I had an interactive discussion with Dr. Carter who is on-call for Dr. Wang about patient management. Patient is going to be admitted for further evaluation and care. <Francisco Alonzo MD - Last Filed: 11/28/23 20:17> Vital Signs: 11/28/23 16:29 11/28/23 17:18 11/28/23 17:30 Temperature 98.1 F Temperature Source Oral Pulse Rate 84 73 Pulse Rate [Right Radial] 112 H Respiratory Rate 24 Blood Pressure 115/68 112/59 L Blood Pressure [Right Arm] 120/66 Blood Pressure Mean 90 81 Blood Pressure Mean [Right Arm] 84 02 Sat by Pulse Oximetry 92 L Oxygen Delivery Method Nasal Cannula Oxygen Flow Rate (LPM) 2 11/28/23 18:00 11/28/23 18:18 Temperature Temperature Source Pulse Rate 87 74 Pulse Rate [Right Radial] Respiratory Rate Blood Pressure 96/56 L Blood Pressure [Right Arm] Blood Pressure Mean Blood Pressure Mean [Right Arm] 02 Sat by Pulse Oximetry 91 L Oxygen Delivery Method Nasal Cannula Oxygen Flow Rate (LPM) 4 Lab Data Lab Results 11/28/23 16:57: WBC 3.0 L, RBC 4.32 L, Hgb 13.7 L, Hct 43.8, MCV 101.4 H, MCH 31.7 H, MCHC 31.3 L, RDW 16.2, Plt Count 109 L D, MPV 10.1, Neut % (Auto) 58.0, Lymph % (Auto) 24.1, Ocean % (Auto) 12.4 H, Eos % (Auto) 3.3, Baso % (Auto) 2.1 H , Neut # (Auto) 1.7 L, Lymph # (Auto) 0.7, Ocean # (Auto) 0.4, Eos # (Auto) 0.1, Baso # (Auto) 0.1, Sodium 130 L, Potassium 4.7, Chloride 81 L, Carbon Dioxide 45 H*, Anion Gap 8.7, BUN 13, Creatinine 0.50 L, Estimated Creat Clear 73, Estimated GFR 164, Est GFR ( Amer) 199 D, Glucose 96, Calcium 9.7, Magnesium 1.6, Total Bilirubin 0.7, AST 28, ALT 18, Alkaline Phosphatase 70, Troponin I < 0.01, Total Protein 7.7, Albumin 4.1, Globulin 3.6 H, Albumin/Globulin Ratio 1.1, Procalcitonin 0.052 11/28/23 17:08: Specimen Source Left radial, O2 % 4lpm, ABG pH 7.31 L, ABG pCO2 84.4 H, ABG pO2 55.1 L, ABG HCO3 41.8 H, ABG Total CO2 44.4 H, ABG O2 Saturation 88 L, ABG Base Excess 15.6 H, Collin Test Acceptable 11/28/23 17:18: Chlamy pneumoniae PCR Not detected, Adenovirus (PCR) Not detected, B. pertussis DNA (PCR) Not detected, Coronavirus OC43 (PCR) Not detected, Coronavirus HKU1 (PCR) Not detected, Coronavirus 229E (PCR) Not detected, SARS-CoV-2 (PCR) Not detected, Coronavirus NL63 (PCR) Not detected, Human Metapneumovir PCR Not detected, Influenza A (H1) PCR Not detected, Influ A (H1N1/09) PCR Not detected, Influenza A (H3) PCR Not detected, Influenza Type A (PCR) Not detected, Influenza Type B (PCR) Not detected, M. pneumoniae (PCR) Not detected, Parainfluenza 1 (PCR) Not detected, Parainfluenza 2 (PCR) Not detected, Parainfluenza 3 (PCR) Not detected, Parainfluenza 4 (PCR) Not detected, RSV (PCR) Not detected, Entero/Rhino (PCR) Not detected Orders (Tests/Meds): ED MEDICATIONS Generic Name Dose Route Start Last Admin Trade Name Freq PRN Reason Stop Dose Admin Sodium Chloride 3 ml 11/28/23 18:09 11/28/23 18:18 Sodium Chloride 3% 15ml Replaced by [facility] 12/28/23 17:06 3 ml ONCE PRN Administration INDUCE SPUTUM COLLECTION Sodium Chloride 10 ml 11/28/23 18:14 Sodium Chloride 0.9% 10ml Flush Syringe IV 12/28/23 18:13 NEEDED PRN Maintain IV Site Discontinued Medications Generic Name Dose Route Start Last Admin Trade Name Freq PRN Reason Stop Dose Admin Albuterol/Ipratropium 3 ml 11/28/23 17:02 11/28/23 17:05 Ipratropium/Albuterol 3 Ml Replaced by [facility] 11/28/23 17:03 3 ml ONCE ONE Administration Furosemide 40 mg 11/28/23 17:57 11/28/23 18:09 Furosemide 40mg/4ml Vial IV 11/28/23 17:58 40 mg ONCE ONE Administration Furosemide 40 mg 11/28/23 18:09 11/28/23 18:11 Furosemide 40mg/4ml Vial IV 11/28/23 18:10 Not Given ONCE ONE Methylprednisolone Sodium Succinate 125 mg 11/28/23 17:08 11/28/23 17:15 Methylprednisolone Sod Succ 125mg Vial IV 11/28/23 17:09 125 mg ONCE ONE Administration Sodium Chloride 3 ml 11/28/23 17:07 Sodium Chloride 3% 15ml Neb IH 12/28/23 17:06 ONCE PRN INDUCE SPUTUM COLLECTION ORDERS Category Date Time Status CT angio chest PE protocol Stat Cat Scan 11/28/23 17:07 Completed CXR --portable [XR chest portable] Stat Exams 11/28/23 17:00 Completed Complete Blood Count Auto Diff Stat Lab 11/28/23 16:57 Completed Comprehensive Metabolic Panel Stat Lab 11/28/23 16:57 Completed Full Resp Panel w/COVID ([facility]) Routine Lab 11/28/23 17:18 Completed Magnesium Stat Lab 11/28/23 16:57 Completed Procalcitonin Stat Lab 11/28/23 16:57 Completed Troponin I Q3H Lab 11/28/23 19:54 Received Troponin I Q3H Lab 11/28/23 23:00 Ordered Troponin I Stat Lab 11/28/23 16:57 Completed Sputum Culture & Gram Stain Stat Micro 11/28/23 17:07 Ordered ABG [Arterial Blood Gas] Stat RT 11/28/23 17:08 Completed Medical Decision Narrative: In summary patient is a 68-year-old male who presents to the emergency department for evaluation of dyspnea. Patient is initially normotensive with a heart rate of 120/66 with a pulse of 112 satting at 92% on 3 L by nasal cannula with respiratory rate of 24 upon arrival, and afebrile. Physical exam is remarkable for coarse wet breath sounds diminished at the bases with end expiratory rhonchi. Differential diagnosis includes COPD exacerbation postobstructive pneumonia, heart failure, acute on chronic respiratory failure, PE, ACS, viral or bacterial infection etc. Initial workup will be conducted with hematologic labs plain film x-ray twelve-lead EKG CTA of the chest. Initial interventions include DuoNeb, Solu-Medrol, Lasix. Initial workup reviewed by me hematologic labs show pancytopenia with an absolute neutrophil count of 1.7 today and his ABG shows hypercapnia and hypoxemia with preserved pH. My informal interpretation of his CTA of the chest does not show any evidence of acute thrombus however shows bibasilar atelectasis versus very small effusions and interstitial mosaic pattern appears to be pulmonary edema along with bronchial wall thickening but no discrete infiltrates noted with radiologist read pending.. Upon repeat evaluation patient still cannot be weaned off down off of oxygen at all. Given this I had an interactive discussion with Dr. Carter who is on-call for Dr. Wang about patient management. Patient is going to be admitted for further evaluation and care. I was consulted by the GRAHAM, and we discussed the complexity of the problems being addressed. I approved the treatment and management plan for this patient?s care in the Emergency Department, thus performing a substantive portion of the medical decision making. Francisco Alonzo MD Critical Care <JOSÉ Wang - Last Filed: 11/28/23 18:30> Critical Care Time Critical Care Time: No
--- NOTE | 2023-11-28 17:00 | XR_ITS ---
PROCEDURE INFORMATION: Exam: XR Chest Exam date and time: 11/28/2023 5:01 PM Age: 68 years old Clinical indication: Shortness of breath; Additional info: SOA TECHNIQUE: Imaging protocol: Radiologic exam of the chest. Views: 1 view. COMPARISON: CT ANGIO CHEST PE PROTOCOL 11/27/2023 6:28 AM FINDINGS: Lungs: There is some increased opacity in the lower lung perez which may reflect developing edema. Pleural spaces: No large effusion or pneumothorax. Heart/Mediastinum: Stable cardiac and mediastinal contours. Vasculature: There are calcifications of the aortic arch. Bones/joints: No evidence of acute osseous abnormalities within the visualized portions of the thoracic spine and ribs. Osseous structures appear appropriate for patient age. IMPRESSION: There is some increased opacity in the lower lung perez which may reflect developing edema.
--- NOTE | 2023-11-28 17:01 | PC.NURSE ---
notified RT of VBG
[2023-11-28] MEDS: IPRATROPIUM/ALBUTEROL 3 ML NEB IH (17:05)
--- NOTE | 2023-11-28 17:06 | PC.NURSE ---
RAD at BS
--- NOTE | 2023-11-28 17:07 | CT_ITS ---
PROCEDURE INFORMATION: Exam: CTA Chest With Contrast Exam date and time: 11/28/2023 5:43 PM Age: 68 years old Clinical indication: Dyspnea; Additional info: Dyspnea, recurrent lung cancer TECHNIQUE: Imaging protocol: Computed tomographic angiography of the chest with contrast. Exam focused on the arteries. 3D rendering (Not supervised by radiologist): MIP and/or 3D reconstructed images were created by the technologist. Radiation optimization: All CT scans at this facility use at least one of these dose optimization techniques: automated exposure control; mA and/or kV adjustment per patient size (includes targeted exams where dose is matched to clinical indication); or iterative reconstruction. Contrast material: ISOVUE; Contrast volume: 70 ml; Contrast route: INTRAVENOUS (IV); COMPARISON: 1. CT ANGIO CHEST PE PROTOCOL 11/27/2023 6:[address] ANGIO CHEST PE PROTOCOL 06/18/2022 10:27 AM 3. PT P.E.T./CT SKULL BASE TO MID-THIGH 08/23/2023 12:33 PM FINDINGS: Pulmonary arteries: There is fair opacification of the pulmonary arterial tree. No central pulmonary arterial filling defect is seen. There is dilation of the main pulmonary artery as well as the major branch pulmonary arteries. This may reflect underlying pulmonary hypertension. Aorta: There is atherosclerotic disease of the visualized aorta and its major branch vessels. Other arteries: Subsegmental vessels are not well evaluated due to technical factors. Lungs: There are scattered areas of emphysema throughout the lungs. Scattered areas of bronchial wall thickening which are likely chronic inflammatory. A few areas of subpleural reticulation are noted, nonspecific. Numerous noncalcified pulmonary nodules are again seen, not changed from the prior. Pleural spaces: Unremarkable. No pneumothorax. No pleural effusion. Heart: Unremarkable. No cardiomegaly. No pericardial effusion. Coronary arteries: There is moderate coronary atherosclerotic disease/calcification although evaluation is limited secondary to the non gated nature of the study. Lymph nodes: There is stable right hilar lymphadenopathy. Bones/joints: There is diffuse degenerative disease of the visualized osseous structures. Soft tissues: There is bilateral gynecomastia. IMPRESSION: 1. No central pulmonary arterial filling defect is seen. Subsegmental vessels are not well evaluated due to technical factors. 2. No dense parenchymal consolidation, pleural effusion, or pneumothorax. 3. Stable exam. 4. Findings which suggest underlying pulmonary arterial hypertension. COMMENTS: The presence of pulmonary emphysema on CT is an independent risk factor for lung cancer. In the absence of a history or active diagnosis of lung cancer, it is recommended that this patient with emphysema be evaluated for enrollment in a low dose CT lung cancer screening program.
[2023-11-28 17:09] LABS: Basophils # 0.1 K/mm3 (0-0.2); Basophils % 2.1 % (0.1-2.0); Eosinophils # 0.1 K/mm3 (0.0-0.4); Eosinophils % 3.3 % (0.1-12.0); Hematocrit 43.8 % (42.0-52.0); Hemoglobin 13.7 g/dL (14.1-18.0); Lymphocytes # 0.7 K/mm3 (0.7-4.5); Lymphocytes % 24.1 % (10-50); Mean Corpuscular HGB Conc 31.3 g/dL (31.8-35.4); Mean Corpuscular Hemoglobin 31.7 pg (27.0-31.2); Mean Corpuscular Volume 101.4 fl (80-94); Mean Platelet Volume 10.1 fl (7.4-10.4); Monocytes # 0.4 K/mm3 (0.1-1.0); Monocytes % 12.4 % (1.7-9.3); Neutrophils # 1.7 K/mm3 (1.8-7.8); Platelet Count 109 K/mm3 (142-424); Red Blood Count 4.32 M/mm3 (4.60-6.20); Red Cell Distribution Width 16.2 % (11.5-17.5)
[2023-11-28 17:12] LABS: Chloride 81 mmol/L (98-107); Potassium 4.7 mmoL/L (3.5-5.1); Sodium 130 mmol/L (136-145)
[2023-11-28 17:15] LABS: Alanine Aminotransferase 18 U/L (12-78); Albumin Level 4.1 g/dl (3.5-5.0); Albumin/Globulin Ratio 1.1 (1.1-1.8); Alkaline Phosphatase 70 U/L (38-126); Aspartate Amino Transferase 28 U/L (17-59); Bilirubin,Total 0.7 mg/dl (0.2-1.3); Blood Urea Nitrogen 13 mg/dl (9-20); Creatinine Clearance Estimated 73 mL/min (50-200); Estimated Glomerular Filt Rate 164 ml/min (>60); GFR (African American) 199 ML/MIN (>60); Globulin 3.6 g/dL (1.3-3.2); Total Protein,Serum 7.7 g/dl (6.3-8.2)
[2023-11-28] MEDS: METHYLPREDNISOLONE SOD SUCC 125MG VIAL 125 MG IV (17:15)
[2023-11-28 17:16] LABS: Calcium 9.7 mg/dl (8.4-10.2); Glucose 96 mg/dl (74-100)
[2023-11-28 17:25] LABS: Anion Gap 8.7 mEq/L (5-15); Carbon Dioxide 45 mmol/L (22.0-30.0)
[2023-11-28 17:28] LABS: Troponin I < 0.01 ng/ml (0.00-0.034)
[2023-11-28 17:31] LABS: Adenovirus,PCR Not Detected (NotDetected); Bordetella Pertussis Not Detected (NotDetected); Chlamydophila Pneumoniae, PCR Not Detected (NotDetected); Coronavirus 19, PCR Not Detected (NotDetected); Coronavirus 229E Not Detected (NotDetected); Coronavirus NL63 Not Detected (NotDetected); Coronavirus OC43 Not Detected (NotDetected); Coronovirus HKU1,PCR Not Detected (NotDetected); Human Metapneumovirus Not Detected (NotDetected); Influenza A, PCR Not Detected (NotDetected); Influenza AH1, 2009 Not Detected (NotDetected); Influenza AH1, PCR Not Detected (NotDetected); Influenza AH3,PCR Not Detected (NotDetected); Influenza B, PCR Not Detected (NotDetected); Mycoplasma Pneumoniae, PCR Not Detected (NotDetected); Parainfluenza 1, PCR Not Detected (NotDetected); Parainfluenza 2, PCR Not Detected (NotDetected); Parainfluenza 3, PCR Not Detected (NotDetected); Parainfluenza 4, PCR Not Detected (NotDetected); Respiratory Syncytial Virus Not Detected (NotDetected); Rhinovirus/Enterovirus Not Detected (NotDetected)
--- NOTE | 2023-11-28 17:31 | ECG_ITS ---
APPROVED REPORT Exam: Resting ECG HR:85 bpm ECG Measurements Heart Rate 85 AXES ND 154 P 77 QRSd 110 QRS 260 QT 348 T 81 QTc 391 Conclusion SINUS RHYTHM occasional pvc RIGHT AXIS DEVIATION PATTERN CONSISTENT WITH PULMONARY DISEASE INCOMPLETE RIGHT BUNDLE BRANCH BLOCK Electronically signed by : ABDI LYON, 11/28/2023 22:45:28
[2023-11-28 17:32] LABS: ABG Base Excess 15.6 mmol/L (-2.4-2.3); ABG HCO3 41.8 mmhg (22.0-26.0); ABG Oxygen Saturation 88 % (90-100); ABG PH 7.31 mmol/L (7.35-7.45); ABG PO2 55.1 mmhg (80-100); ABG TCO2 44.4 mmhg (23-27)
--- NOTE | 2023-11-28 17:35 | PC.NURSE ---
pt going to radiology.
[2023-11-28 17:37] LABS: Magnesium 1.6 mg/dl (1.6-2.3)
[2023-11-28 17:39] LABS: Allen's Test Acceptable; Source Left Radial
[2023-11-28 17:40] LABS: ABG PCO2 84.4 mmhg (35.0-45.0)
[2023-11-28 17:56] LABS: Procalcitonin 0.052 ng/mL (0.0-2.0)
--- NOTE | 2023-11-28 18:06 | PC.NURSE ---
charge called for bed; admissions called for admission
[2023-11-28] MEDS: FUROSEMIDE 40MG/4ML VIAL 40 MG IV (18:09)
--- NOTE | 2023-11-28 18:13 | PC.NURSE ---
awaiting for bed to be cleaned on med surg for pt's admission
[2023-11-28] MEDS: SODIUM CHLORIDE 3% 15ML NEB 3 ML IH (18:18)
--- NOTE | 2023-11-28 18:23 | PC.NURSE ---
report called to ADRIANNA valle
[2023-11-28 20:33] LABS: Troponin I < 0.01 ng/ml (0.00-0.034)
[2023-11-28] MEDS: METOPROLOL SUCCINATE XL 25MG TABLET 25 MG PO (21:14)
[2023-11-28] MEDS: PRAVASTATIN 40MG TAB 40 MG PO (21:14)
[2023-11-29] VITALS (15 sets, daily range): BP systolic 105–117; BP diastolic 53–72; PULSE 73–90; RESP 16–22; TEMP 36.4–36.8; O2SAT 86–97; BMI 24.3
[2023-11-29 00:02] LABS: Troponin I < 0.01 ng/ml (0.00-0.034)
--- NOTE | 2023-11-29 03:05 | PC.NURSE ---
Pt c/o SOA, contacted Ashok Chang ordered, contacted RT at this time to notify of orders
[2023-11-29] MEDS: IPRATROPIUM/ALBUTEROL 3 ML NEB IH ×5 (03:17→22:56)
--- NOTE | 2023-11-29 03:30 | PC.NURSE ---
RESP NOTE: SPUTUM SAMPLE COLLECTED. SPECIMEN SENT TO LAB.
--- NOTE | 2023-11-29 05:00 | PC.NURSE ---
Contacted Dr. Garland with pt c/o of SOA, pt presents as weak and worn out. Pt states that he just dose not feel well at all. Pt remains on 6LNC and now sating high 80s low 90s. Orders to put pt on bipap and get ABG with morning labs. RT notified at this time.
--- NOTE | 2023-11-29 05:20 | PC.NURSE ---
Pt placed on BiPAP at this time per .
--- NOTE | 2023-11-29 06:15 | PC.NURSE ---
Pt c/o chest pain, contacted Dr. Garland at this time, RT in room getting EKG at this time, orders for am troponin
--- NOTE | 2023-11-29 06:20 | ECG_ITS ---
APPROVED REPORT Exam: Resting ECG HR:77 bpm ECG Measurements Heart Rate 77 AXES LA 137 P 66 QRSd 101 QRS 198 QT 391 T 15 QTc 423 Conclusion SINUS RHYTHM WITH SINUS ARRHYTHMIA PATTERN CONSISTENT WITH PULMONARY DISEASE INCOMPLETE RIGHT BUNDLE BRANCH BLOCK [90+ ms QRS DURATION, TERMINAL R IN V1/V2, 40+ ms S IN I/aVL/V4/V5/V6] POSSIBLE RIGHT VENTRICULAR HYPERTROPHY [SOME/ALL OF: PROMINENT R IN V1, LATE TRANSITION, RAD, TAMIKA, SSS] INFERIOR MYOCARDIAL INFARCTION , PROBABLY OLD [40+ ms Q WAVE AND/OR ST/T ABNORMALITY IN II/aVF] ABNORMAL ECG UNCONFIRMED REPORT Electronically signed by : Clark Garland MD 12/01/2023 12:25:47
[2023-11-29 06:35] LABS: ABG Base Excess 16.3 mmol/L (-2.4-2.3); ABG HCO3 40.6 mmhg (22.0-26.0); ABG Oxygen Saturation 88 % (90-100); ABG PH 7.43 mmol/L (7.35-7.45); ABG TCO2 42.6 mmhg (23-27)
[2023-11-29 06:38] LABS: ABG PCO2 62.9 mmhg (35.0-45.0)
[2023-11-29 07:01] LABS: Basophils % 0.1 % (0.1-2.0); Eosinophils % 0.3 % (0.1-12.0); Hematocrit 41.1 % (42.0-52.0); Lymphocytes # 0.3 K/mm3 (0.7-4.5); Lymphocytes % 16.1 % (10-50); Mean Corpuscular HGB Conc 31.6 g/dL (31.8-35.4); Mean Corpuscular Volume 101.1 fl (80-94); Mean Platelet Volume 9.8 fl (7.4-10.4); Monocytes % 2.2 % (1.7-9.3); Neutrophils # 1.4 K/mm3 (1.8-7.8); Neutrophils % 81.2 % (37.0-80.0); Platelet Count 105 K/mm3 (142-424); Red Blood Count 4.07 M/mm3 (4.60-6.20); Red Cell Distribution Width 16.3 % (11.5-17.5); White Blood Count 1.7 K/mm3 (4.8-10.8)
[2023-11-29 07:19] LABS: Blood Urea Nitrogen 16 mg/dl (9-20); Calcium 9.4 mg/dl (8.4-10.2); Chloride 78 mmol/L (98-107); Creatinine Clearance Estimated 71 mL/min (50-200); Estimated Glomerular Filt Rate 164 ml/min (>60); GFR (African American) 199 ML/MIN (>60); Glucose 142 mg/dl (74-100); Potassium 4.7 mmoL/L (3.5-5.1); Sodium 128 mmol/L (136-145)
[2023-11-29 07:25] LABS: Anion Gap 14.7 mEq/L (5-15); Carbon Dioxide 40 mmol/L (22.0-30.0)
[2023-11-29 07:31] LABS: Troponin I < 0.01 ng/ml (0.00-0.034)
--- NOTE | 2023-11-29 08:16 | HMH.PHAINT1 ---
Pharmacy Intervention Comments: MEDICATION RECONCILIATION COMPLETED ON PATIENT USING EXTERNAL FILL HISTORY FROM PHARMACY AND DISCHARGE SUMMARY FROM PREVIOUS ADMISSION. -SILVA LOVE, LEORAD
--- NOTE | 2023-11-29 08:39 | P.HP_ITS ---
History of Present Illness *Admission Date: 11/28/23 *Reason for visit:: hypoxia *History of present illness: Patient presents for evaluation of dyspnea. Patient has a long pulmonary history of COPD and emphysema, previous intermittent evening oxygen, previous lung cancer status post chemoradiation approximately 2 years ago and now with known recurrence who has recently started chemotherapy that is reportedly probable palliative. Patient had a recent admission for respiratory failure and what was thought to possibly be pneumonia although note no definitive infiltrate or organism was isolated. He was discharged on continuous oxygen however. Patient presented to the emergency department on Monday for worsening pulmonary status and no acute process was noted and he improved with treatment in the emergency department so he was discharged home. However patient is continued to decline over the weekend requiring increasing of his oxygen along with every 3 hour to 4-hour nebulizer treatments. Patient presents today and rapidly desaturates down into the 80s off of oxygen. He denies chest pain, fever, chills, hemoptysis, hematochezia, melena, nausea, vomiting, diarrhea but does report a wet cough. He was evaluated in the emergency room and his CTA did not show any evidence of acute thrombus. The ER doctor was concerned with pulmonary edema along with bronchial wall thickening but did not see any discrete infiltrates. His ABG showed hypercapnia and hypoxemia with a preserved pH. He could not be weaned off of oxygen at all and was admitted for further evaluation and treatment. His states the past few days he has been very confused. He has also been unable to eat. [facility] Disclaimer: The information contained in this section may have been updated after the patient was seen, as this information can be updated by other users. Medical History Elbow mass Swelling Hilar lymphadenopathy Allergic rhinitis History of lung or bronchial cancer Mediastinal lymphadenopathy PAF (paroxysmal atrial fibrillation) COPD (chronic obstructive pulmonary disease) Dyspnea on exertion Malignant neoplasm of unspecified part of unspecified bronchus or lung Pulmonary emphysema Smoking greater than 30 pack years Tobacco abuse disorder Lung nodule Tobacco abuse counseling HAP (hospital-acquired pneumonia) Influenza A Acute on chronic respiratory failure with hypoxia and hypercapnia Tobacco abuse AAA (abdominal aortic aneurysm) Melanoma Thyroid disease Sinus problem History of radiation therapy History of chemotherapy Cataract Myocardial infarction Lung disease Pacemaker DVT (deep venous thrombosis) Cancer Atherosclerotic heart disease Hypotension HLD (hyperlipidemia) Abnormal EKG CAD (coronary artery disease) CHF (congestive heart failure) Gout Hypertension Hypothyroidism COPD exacerbation Surgical History H/O melanoma excision History of heart artery stent History of cardiac cath History of colonoscopy Family History Gout Coronary artery disease AAA (abdominal aortic aneurysm) Heart attack Hypertension Social History Smoking Status: Former smoker tobacco type: cigarettes packs per day: 1 alcohol intake: former substance use type: denies use 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ional status: retired and disabled Travel in the last 8 weeks: None household members: spouse housing: house lives independently: No marital status: education level: high school service: No detention: No caffeine: No special honey needs: No agree to transfusion: No do you feel safe at home: Yes victim of physical abuse: No victim of emotional abuse: No victim of sexual abuse: No would you like helpful sources: No Review of Systems Constitutional Constitutional: Reports fatigue, Denies headache(s) and Reports weakness Eyes Eyes: Denies blurry vision and Denies diplopia ENT Ears, Nose, Mouth, and Throat: Denies headache(s), Denies nasal congestion, Denies sore throat and Reports vertigo *Cardiovascular Cardiovascular: Reports chest pain, Reports dyspnea and Denies leg edema *Respiratory Respiratory: Reports cough, Reports dyspnea and Reports wheezing *Gastrointestinal Gastrointestinal: Denies abdominal pain, Denies loose stools, Reports nausea and Denies vomiting *Genitourinary Genitourinary: Denies difficulty urinating and Denies dysuria *Musculoskeletal Musculoskeletal: Denies arthralgias and Denies myalgias *Neurologic Neurologic: Denies headache(s), Reports vertigo and Reports weakness Endocrine Endocrine: Reports fatigue Allergic/Immunologic Allergic/Immunologic: Reports wheezing Meds Home Medications and Allergies Home Medications Medication Instructions Recorded Confirmed Type allopurinol 300 mg tablet 300 mg PO DAILY 12/22/17 11/28/23 History lovastatin 40 mg tablet 40 mg PO HS 12/22/17 11/28/23 History aspirin 81 mg tablet,delayed 81 mg PO DAILY 08/24/20 11/28/23 History release levothyroxine 150 mcg tablet 150 mcg PO DAILY 02/02/23 11/28/23 History spironolactone 25 mg tablet 25 mg PO DAILY 05/11/23 11/28/23 History azelastine 137 mcg (0.1 %) nasal 2 spray intranasal HS 90 days #30 09/11/23 11/28/23 Rx spray aerosol mL fluticasone fur. 100 mcg-umeclid 1 inh inhalation DAILY 90 days #90 11/08/23 11/28/23 Rx 62.5 mcg-vilant 25 mcg ea inhalat.powder (Trelegy Ellipta) fluticasone propionate 50 2 spray intranasal DAILY 90 days 11/20/23 11/28/23 Rx mcg/actuation nasal #16 grams spray,suspension (Flonase Allergy Relief) ipratropium 0.5 mg-albuterol 3 mg 3 ml inhalation QIDP PRN shortness 11/22/23 11/28/23 History (2.5 mg base)/3 mL nebulization of breath or wheezing soln metoprolol succinate 25 mg 25 mg PO HS 11/22/23 11/28/23 History tablet,extended release 24 hr fluconazole 100 mg tablet 100 mg PO DAILY #10 tabs 11/24/23 11/28/23 Rx (Diflucan) New Prescriptions to Start Prescriptions: Allergies Allergy/AdvReac Type Severity Reaction Status Date / Time No Known Drug Allergies Allergy Unknown Unknown Verified 11/20/23 15:11 [NKDA] allergy reaction Exam Data for Last 24 hours Vital signs and Labs for Last 24 Hours: Temp Pulse Resp BP Pulse Ox O2 Del Method O2 Flow Rate 97.6 F 90 16 108/64 L 86 L Nasal Cannula 3 11/29/23 08:00 11/29/23 08:00 11/29/23 08:00 11/29/23 08:00 11/29/23 08:00 11/29/23 08:00 11/29/23 08:00 FiO2 35 11/29/23 05:15 Laboratory Results - last 24 hr 11/28/23 16:57: WBC 3.0 L, RBC 4.32 L, Hgb 13.7 L, Hct 43.8, MCV 101.4 H, MCH 31.7 H, MCHC 31.3 L, RDW 16.2, Plt Count 109 L D, MPV 10.1, Neut % (Auto) 58.0, Lymph % (Auto) 24.1, [place] % (Auto) 12.4 H, Eos % (Auto) 3.3, Baso % (Auto) 2.1 H , Neut # (Auto) 1.7 L, Lymph # (Auto) 0.7, [place] # (Auto) 0.4, Eos # (Auto) 0.1, Baso # (Auto) 0.1, Sodium 130 L, Potassium 4.7, Chloride 81 L, Carbon Dioxide 45 H*, Anion Gap 8.7, BUN 13, Creatinine 0.50 L, Estimated Creat Clear 73, Estimated GFR 164, Est GFR ( Amer) 199 D, Glucose 96, Calcium 9.7, Magnesium 1.6, Total Bilirubin 0.7, AST 28, ALT 18, Alkaline Phosphatase 70, Troponin I < 0.01, Total Protein 7.7, Albumin 4.1, Globulin 3.6 H, Albumin/Globulin Ratio 1.1, Procalcitonin 0.052 11/28/23 17:08: Specimen Source Left radial, O2 % 4lpm, ABG pH 7.31 L, ABG pCO2 84.4 H, ABG pO2 55.1 L, ABG HCO3 41.8 H, ABG Total CO2 44.4 H, ABG O2 Saturation 88 L, ABG Base Excess 15.6 H, Collin Test Acceptable 11/28/23 17:18: Chlamy pneumoniae PCR Not detected, Adenovirus (PCR) Not detected, B. pertussis DNA (PCR) Not detected, Coronavirus OC43 (PCR) Not detected, Coronavirus HKU1 (PCR) Not detected, Coronavirus 229E (PCR) Not detected, SARS-CoV-2 (PCR) Not detected, Coronavirus NL63 (PCR) Not detected, Human Metapneumovir PCR Not detected, Influenza A (H1) PCR Not detected, Influ A (H1N1/09) PCR Not detected, Influenza A (H3) PCR Not detected, Influenza Type A (PCR) Not detected, Influenza Type B (PCR) Not detected, M. pneumoniae (PCR) Not detected, Parainfluenza 1 (PCR) Not detected, Parainfluenza 2 (PCR) Not detected, Parainfluenza 3 (PCR) Not detected, Parainfluenza 4 (PCR) Not detected, RSV (PCR) Not detected, Entero/Rhino (PCR) Not detected 11/28/23 19:54: Troponin I < 0.01 11/28/23 22:48: Troponin I < 0.01 11/29/23 05:56: WBC 1.7 L* D, RBC 4.07 L, Hgb 13.0 L, Hct 41.1 L, MCV 101.1 H, MCH 32.0 H, MCHC 31.6 L, RDW 16.3, Plt Count 105 L, MPV 9.8, Neut % (Auto) 81.2 H, Lymph % (Auto) 16.1, [place] % (Auto) 2.2, Eos % (Auto) 0.3, Baso % (Auto) 0.1, Neut # (Auto) 1.4 L, Lymph # (Auto) 0.3 L, [place] # (Auto) 0.0 L, Eos # (Auto) 0.0, Baso # (Auto) 0.0, Sodium 128 L, Potassium 4.7, Chloride 78 L, Carbon Dioxide 40 H, Anion Gap 14.7, BUN 16, Creatinine 0.50 L, Estimated Creat Clear 71, Estimated GFR 164, Est GFR ( Amer) 199, Glucose 142 H D, Calcium 9.4, Troponin I < 0.01 11/29/23 06:00: ABG pH 7.43, ABG pCO2 62.9 H, ABG pO2 56.0 L, ABG HCO3 40.6 H, ABG Total CO2 42.6 H, ABG O2 Saturation 88 L, ABG Base Excess 16.3 H I & O for Last 24 hours: Intake & Output 11/26/23 11/27/23 11/28/23 11/29/23 11:59 11:59 11:59 11:59 Intake Total 360 / 360 Output Total 950 / 950 Balance -590 / -590 Weight 160 lb 6.4 oz Constitutional Constitutional: no acute distress *Routine HEENT Exam Head: Present normocephalic and atraumatic Eye: Present EOMI and PERRL ENT: Present mucous membranes dry *Routine Neck Exam Neck: Present supple and full ROM *Routine Respiratory Exam Respiratory: Present decreased breath sounds and wheezes (anterior) *Routine Cardiovascular Exam Cardiovascular: Present RRR *Routine Abdominal Exam Abdominal: Present soft and normoactive bowel sounds; Absent tenderness *Routine Rectal Exam Rectal:: deferred *Routine Genitalia Exam Genitalia:: deferred *Routine Extremities Exam Extremities: Absent cyanosis, clubbing or edema *Routine Skin Exam Skin: Present intact; Absent erythema *Routine Neurological Exam Neurological: Present alert (confused this am) H&P: Result Impressions CTA 1. No central pulmonary arterial filling defect is seen. Subsegmental vessels are not well evaluated due to technical factors. 2. No dense parenchymal consolidation, pleural effusion, or pneumothorax. 3. Stable exam. 4. Findings which suggest underlying pulmonary arterial hypertension. Assessment and Plan *Assessment and plan (1) Acute hypoxic on chronic hypercapnic respiratory failure: Status: Acute Category: Medical Code(s): J96.01 - Acute respiratory failure with hypoxia; J96.12 - Chronic respiratory failure with hypercapnia (2) Neutropenia: Status: Acute Category: Medical Code(s): D70.9 - Neutropenia, unspecified (3) Malignant neoplasm of unspecified part of unspecified bronchus or lung: Status: Chronic Category: Medical Code(s): C34.90 - Malignant neoplasm of unspecified part of unspecified bronchus or lung (4) COPD (chronic obstructive pulmonary disease): Status: Acute Category: Medical Code(s): J44.9 - Chronic obstructive pulmonary disease, unspecified (5) Shortness of breath: Status: Acute Category: Medical Code(s): R06.02 - Shortness of breath (6) History of ASCVD: Status: Chronic Category: Medical Code(s): Z86.79 - Personal history of other diseases of the circulatory system (7) PAF (paroxysmal atrial fibrillation): Status: Acute Category: Medical Code(s): I48.0 - Paroxysmal atrial fibrillation (8) Pulmonary emphysema: Status: Chronic Qualifiers: Emphysema type: unspecified Qualified Code(s): J43.9 - Emphysema, unspecified Category: Medical Code(s): J43.9 - Emphysema, unspecified (9) Hypothyroidism: Status: Chronic Category: Medical Code(s): E03.9 - Hypothyroidism, unspecified (10) Hypertension: Status: Chronic Qualifiers: Hypertension type: essential hypertension Qualified Code(s): I10 - Essential (primary) hypertension Category: Medical Code(s): I10 - Essential (primary) hypertension (11) HLD (hyperlipidemia): Status: Chronic Qualifiers: Hyperlipidemia type: mixed hyperlipidemia Qualified Code(s): E78.2 - Mixed hyperlipidemia Category: Medical Code(s): E78.5 - Hyperlipidemia, unspecified (12) CHF (congestive heart failure): Status: Chronic Qualifiers: Heart failure chronicity: chronic Heart failure type: diastolic Qualified Code(s): I50.32 - Chronic diastolic (congestive) heart failure Category: Medical Code(s): I50.9 - Heart failure, unspecified (13) CAD (coronary artery disease): Status: Chronic Qualifiers: Associated angina: without angina Coronary Disease-Associated Artery/Lesion type: [place] artery [place] vs. transplanted heart: [place] heart Qualified Code(s): I25.10 - Atherosclerotic heart disease of [place] coronary artery without angina pectoris Category: Medical Code(s): I25.10 - Atherosclerotic heart disease of [place] coronary artery without angina pectoris Plan Patient was on BIPAP during the night but is now on nasal oxygen. He is still slightly confused. His said they had to turn his oxygen up to 5L at home to keep his sats in the 90's. Will consult pulmonology today for hypercapnic respiratory failure. CTA did not show a pneumonia. Dr. Wang entry - Saw patient, agree with above note.
--- NOTE | 2023-11-29 09:02 | CA_ITS ---
APPROVED REPORT EXAM: Comprehensive 2D, Doppler, and color-flow Echocardiogram Sleeping Car Conductor: Bebe Sommer CRT Ht: 5 ft 8 in Wt: 160lbs BSA: 1.86 BP: 96/56 mmHg Indications: Chest Pain, COPD, Shortness of Breath, CAD, Hyperlipidemia, Hypertension/HDD, LUNG CA Chemo, stent, afib, home O2 M-Mode Dimensions RVDd 2.14 cm (0.9-2.6) LA Diam 3.64 cm (1.9-4.0) LVDd 4.48 cm (3.5-5.7) LVDs 2.78 cm (3.5-5.7) IVSd 1.00 cm (0.6-1.1) PWd 0.74 cm (0.6-1.1) EF (Teich) 68.30% FS 37.90% EDV (Teich) 91.50 mL TAPSE 1.94 (<1.7) ESV (Teich) 29.00 mL LV Diastology E Decel Time 267 (160-240 msec) E/A Ratio 1.55 MED A' 9.10 cm/s LAT A' 9.70 cm/s Aortic Valve AO Peak GR. 5.90 mmHg Mitral Valve MV A Velocity 73.0 (40-130 cm/s) E/A Ratio 1.55 Tricuspid Valve TR P. Velocity 441.00 cm/s RAP Estimate 10.00 mmHg RVSP 87.80 mmHg Left Ventricle The left ventricle is normal size. The left ventricular systolic function is normal. The left ventricular ejection fraction is within the normal range. There is increased LV wall thickness. There is normal LV segmental wall motion. Diastolic function is indeterminate. LVEF is 55%. Right Ventricle The right ventricle is moderately dilated. Right ventricle is mildly hypokinetic. Atria The left atrium size is normal. The right atrium size is normal. The interatrial septum is not well-visualized. Aortic Valve The aortic valve is mildly thickened. There is no aortic valvular stenosis. Trace aortic regurgitation. Mitral Valve The mitral valve leaflets are mildly thickened. No evidence of mitral valve stenosis. Trace mitral regurgitation. Tricuspid Valve The tricuspid valve leaflets are thin and pliable. Mild tricuspid regurgitation. RVSP is 45-50 mmHg. Pulmonic Valve The pulmonary valve is normal in structure. Mild pulmonic regurgitation. Great Vessels The aortic root is normal in size. The ascending aorta is not well-visualized. IVC is normal in size and collapses >50% with inspiration. Pericardium Trivial pericardial effusion. Other Information Study Quality: Technically Difficult Conclusion Technically difficult study due to poor acoustic windows. Normal LV systolic function. Moderately dilated RV with mild reduction in RV function. Mild TR, mild [place]. Elevated RVSP 45-50 mmHg. Trivial pericardial effusion. Electronically signed by : Risa Munson MD 12/01/2023 21:59:42
--- NOTE | 2023-11-29 09:31 | P.CONS_ITS ---
History of Present Illness History of present illness: Mr. Medeiros is a 68-year-old male significant smoking history COPD stage III adenocarcinoma lung s/p chemo radiation and immunotherapy with recurrence currently following with oncology presented to the hospital with continued decline in his respiratory status and increasing oxygen requirements and pulmonary was called for further evaluation and management. [facility] Disclaimer: The information contained in this section may have been updated after the patient was seen, as this information can be updated by other users. Medical History (Updated 11/29/23 @ 10:51 by Arie Sosa MD) Acute respiratory failure with hypoxia Acute hypercapnic respiratory failure Elbow mass Swelling Hilar lymphadenopathy Allergic rhinitis History of lung or bronchial cancer Mediastinal lymphadenopathy PAF (paroxysmal atrial fibrillation) COPD (chronic obstructive pulmonary disease) Dyspnea on exertion Malignant neoplasm of unspecified part of unspecified bronchus or lung Pulmonary emphysema Smoking greater than 30 pack years Tobacco abuse disorder Lung nodule Tobacco abuse counseling HAP (hospital-acquired pneumonia) Influenza A Acute on chronic respiratory failure with hypoxia and hypercapnia Tobacco abuse AAA (abdominal aortic aneurysm) Melanoma Thyroid disease Sinus problem History of radiation therapy History of chemotherapy Cataract Myocardial infarction Lung disease Pacemaker DVT (deep venous thrombosis) Cancer Atherosclerotic heart disease Hypotension HLD (hyperlipidemia) Abnormal EKG CAD (coronary artery disease) CHF (congestive heart failure) Gout Hypertension Hypothyroidism COPD exacerbation Surgical History H/O melanoma excision History of heart artery stent History of cardiac cath History of colonoscopy Family History Gout Coronary artery disease AAA (abdominal aortic aneurysm) Heart attack Hypertension Social History Smoking Status: Former smoker tobacco type: cigarettes packs per day: 1 alcohol intake: former substance use type: denies use 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ional status: retired and disabled Travel in the last 8 weeks: None household members: spouse housing: house lives independently: No marital status: education level: high school service: No senior care: No caffeine: No special honey needs: No agree to transfusion: No do you feel safe at home: Yes victim of physical abuse: No victim of emotional abuse: No victim of sexual abuse: No would you like helpful sources: No Review of Systems Constitutional Constitutional: Reports fatigue, Denies headache(s), Reports lethargy and Reports weakness Eyes Eyes: Denies eye discharge, Denies dry eyes, Denies irritation and Denies itchy eyes ENT Ears, Nose, Mouth, and Throat: Denies headache(s), Denies lip swelling, Denies throat swelling and Reports vertigo *Cardiovascular Cardiovascular: Reports dyspnea, Reports dyspnea on exertion, Reports leg edema and Reports orthopnea *Respiratory Respiratory: Reports chest congestion, Reports cough, Reports dyspnea, Reports dyspnea on exertion, Denies excessive phlegm production and Reports wheezing *Gastrointestinal Gastrointestinal: Denies abdominal pain, Denies belching and Denies cramping *Musculoskeletal Musculoskeletal: Reports back pain, Reports myalgias and Reports other (No small joint swelling or Pain) *Neurologic Neurologic: Denies headache(s), Reports vertigo and Reports weakness Psychiatric Psychiatric: Denies homicidal ideation and Denies suicidal ideation Endocrine Endocrine: Reports fatigue and Denies heat intolerance Hematologic/Lymphatic Hematologic/Lymphatic: Denies easy bleeding and Denies lymphadenopathy Allergic/Immunologic Allergic/Immunologic: Denies itchy eyes, Denies lip swelling, Denies throat swelling and Reports wheezing Pulmonology Exam Inpatient Vital signs and Labs for Last 24 Hours: Temp Pulse Resp BP Pulse Ox O2 Del Method O2 Flow Rate 97.6 F 90 16 108/64 L 86 L Nasal Cannula 3 11/29/23 08:00 11/29/23 08:00 11/29/23 08:00 11/29/23 08:00 11/29/23 08:00 11/29/23 08:00 11/29/23 08:00 FiO2 35 11/29/23 05:15 Laboratory Results - last 24 hr 11/28/23 16:57: WBC 3.0 L, RBC 4.32 L, Hgb 13.7 L, Hct 43.8, MCV 101.4 H, MCH 31.7 H, MCHC 31.3 L, RDW 16.2, Plt Count 109 L D, MPV 10.1, Neut % (Auto) 58.0, Lymph % (Auto) 24.1, [place] % (Auto) 12.4 H, Eos % (Auto) 3.3, Baso % (Auto) 2.1 H , Neut # (Auto) 1.7 L, Lymph # (Auto) 0.7, [place] # (Auto) 0.4, Eos # (Auto) 0.1, Baso # (Auto) 0.1, Sodium 130 L, Potassium 4.7, Chloride 81 L, Carbon Dioxide 45 H*, Anion Gap 8.7, BUN 13, Creatinine 0.50 L, Estimated Creat Clear 73, Estimated GFR 164, Est GFR ( Amer) 199 D, Glucose 96, Calcium 9.7, Magnesium 1.6, Total Bilirubin 0.7, AST 28, ALT 18, Alkaline Phosphatase 70, Troponin I < 0.01, Total Protein 7.7, Albumin 4.1, Globulin 3.6 H, Albumin/Globulin Ratio 1.1, Procalcitonin 0.052 11/28/23 17:08: Specimen Source Left radial, O2 % 4lpm, ABG pH 7.31 L, ABG pCO2 84.4 H, ABG pO2 55.1 L, ABG HCO3 41.8 H, ABG Total CO2 44.4 H, ABG O2 Saturation 88 L, ABG Base Excess 15.6 H, Collin Test Acceptable 11/28/23 17:18: Chlamy pneumoniae PCR Not detected, Adenovirus (PCR) Not detected, B. pertussis DNA (PCR) Not detected, Coronavirus OC43 (PCR) Not detected, Coronavirus HKU1 (PCR) Not detected, Coronavirus 229E (PCR) Not detected, SARS-CoV-2 (PCR) Not detected, Coronavirus NL63 (PCR) Not detected, Human Metapneumovir PCR Not detected, Influenza A (H1) PCR Not detected, Influ A (H1N1/09) PCR Not detected, Influenza A (H3) PCR Not detected, Influenza Type A (PCR) Not detected, Influenza Type B (PCR) Not detected, M. pneumoniae (PCR) Not detected, Parainfluenza 1 (PCR) Not detected, Parainfluenza 2 (PCR) Not detected, Parainfluenza 3 (PCR) Not detected, Parainfluenza 4 (PCR) Not detected, RSV (PCR) Not detected, Entero/Rhino (PCR) Not detected 11/28/23 19:54: Troponin I < 0.01 11/28/23 22:48: Troponin I < 0.01 11/29/23 05:56: WBC 1.7 L* D, RBC 4.07 L, Hgb 13.0 L, Hct 41.1 L, MCV 101.1 H, M CH 32.0 H, MCHC 31.6 L, RDW 16.3, Plt Count 105 L, MPV 9.8, Neut % (Auto) 81.2 H , Lymph % (Auto) 16.1, [place] % (Auto) 2.2, Eos % (Auto) 0.3, Baso % (Auto) 0.1, N eut # (Auto) 1.4 L, Lymph # (Auto) 0.3 L, [place] # (Auto) 0.0 L, Eos # (Auto) 0.0, Baso # (Auto) 0.0, Sodium 128 L, Potassium 4.7, Chloride 78 L, Carbon Dioxide 40 H, Anion Gap 14.7, BUN 16, Creatinine 0.50 L, Estimated Creat Clear 71, Estimated GFR 164, Est GFR ( Amer) 199, Glucose 142 H D, Calcium 9.4, Troponin I < 0.01 11/29/23 06:00: ABG pH 7.43, ABG pCO2 62.9 H, ABG pO2 56.0 L, ABG HCO3 40.6 H, A BG Total CO2 42.6 H, ABG O2 Saturation 88 L, ABG Base Excess 16.3 H I & O for Labs for Last 24 Hours: Intake & Output 11/26/23 11/27/23 11/28/23 11/29/23 23:59 23:59 23:59 23:59 Intake Total 360 / 360 Output Total 950 / 950 Balance -590 / -590 Weight 160 lb 160 lb 6.4 oz Constitutional: Present severe distress Head: Present normocephalic and atraumatic ENT: Present normal exam, normal oropharynx and mucous membranes moist Neck: Present normal inspection and full ROM Respiratory: Present prolonged expiratory phase, respiratory distress, wheezes, crackles, diminished air movement and able to speak in complete sentences Cardiac: Present S1/S2, Tachycardia and radial pulses present GI: Present soft and distention; Absent tenderness or guarding Skin: Present intact; Absent cyanosis or jaundice Neuro: Present alert, awake and oriented x 3 Extremities: Present normal inspection; Absent clubbing or cyanosis Psychiatric: Present normal affect and cooperative Meds Home Medications and Allergies Home Medications Medication Instructions Recorded Confirmed Type allopurinol 300 mg tablet 300 mg PO DAILY 12/22/17 11/28/23 History lovastatin 40 mg tablet 40 mg PO HS 12/22/17 11/28/23 History aspirin 81 mg tablet,delayed 81 mg PO DAILY 08/24/20 11/28/23 History release levothyroxine 150 mcg tablet 150 mcg PO DAILY 02/02/23 11/28/23 History spironolactone 25 mg tablet 25 mg PO DAILY 05/11/23 11/28/23 History azelastine 137 mcg (0.1 %) nasal 2 spray intranasal HS 90 days #30 09/11/23 11/28/23 Rx spray aerosol mL fluticasone fur. 100 mcg-umeclid 1 inh inhalation DAILY 90 days #90 11/08/23 11/28/23 Rx 62.5 mcg-vilant 25 mcg ea inhalat.powder (Trelegy Ellipta) fluticasone propionate 50 2 spray intranasal DAILY 90 days 11/20/23 11/28/23 Rx mcg/actuation nasal #16 grams spray,suspension (Flonase Allergy Relief) ipratropium 0.5 mg-albuterol 3 mg 3 ml inhalation QIDP PRN shortness 11/22/23 11/28/23 History (2.5 mg base)/3 mL nebulization of breath or wheezing soln metoprolol succinate 25 mg 25 mg PO HS 11/22/23 11/28/23 History tablet,extended release 24 hr fluconazole 100 mg tablet 100 mg PO DAILY #10 tabs 11/24/23 11/28/23 Rx (Diflucan) New Prescriptions to Start Prescriptions: Allergies Allergy/AdvReac Type Severity Reaction Status Date / Time No Known Drug Allergies Allergy Unknown Unknown Verified 11/20/23 15:11 [NKDA] allergy reaction Results Laboratory Findings 11/29/23 05:56 11/29/23 05:56 ABG ABG pH 7.43 mmol/L (7.35-7.45) 11/29/23 06:00 ABG pCO2 62.9 mmhg (35.0-45.0) H 11/29/23 06:00 ABG pO2 56.0 mmhg (80-100) L 11/29/23 06:00 ABG O2 Saturation 88 % (90-100) L 11/29/23 06:00 Abnormal lab findings: Abnormal Labs 11/28/23 11/28/23 11/29/23 16:57 17:08 05:56 WBC 3.0 L 1.7 L* D RBC 4.32 L 4.07 L Hgb 13.7 L 13.0 L Hct 41.1 L MCV 101.4 H 101.1 H MCH 31.7 H 32.0 H MCHC 31.3 L 31.6 L Plt Count 109 L D 105 L Neut % (Auto) 81.2 H [place] % (Auto) 12.4 H Baso % (Auto) 2.1 H Neut # (Auto) 1.7 L 1.4 L Lymph # (Auto) 0.3 L [place] # (Auto) 0.0 L ABG pH 7.31 L ABG pCO2 84.4 H ABG pO2 55.1 L ABG HCO3 41.8 H ABG Total CO2 44.4 H ABG O2 Saturation 88 L ABG Base Excess 15.6 H Sodium 130 L 128 L Chloride 81 L 78 L Carbon Dioxide 45 H* 40 H Creatinine 0.50 L 0.50 L Glucose 142 H D Globulin 3.6 H 11/29/23 06:00 WBC RBC Hgb Hct MCV MCH MCHC Plt Count Neut % (Auto) [place] % (Auto) Baso % (Auto) Neut # (Auto) Lymph # (Auto) [place] # (Auto) ABG pH ABG pCO2 62.9 H ABG pO2 56.0 L ABG HCO3 40.6 H ABG Total CO2 42.6 H ABG O2 Saturation 88 L ABG Base Excess 16.3 H Sodium Chloride Carbon Dioxide Creatinine Glucose Globulin Assessment and Plan *Assessment and plan (1) Acute exacerbation of chronic obstructive pulmonary disease: Status: Acute Category: Medical Code(s): J44.1 - Chronic obstructive pulmonary disease with (acute) exacerbation (2) Acute hypercapnic respiratory failure: Status: Acute Category: Medical Code(s): J96.02 - Acute respiratory failure with hypercapnia (3) Acute respiratory failure with hypoxia: Status: Acute Category: Medical Code(s): J96.01 - Acute respiratory failure with hypoxia (4) Pneumonia: Status: Acute Qualifiers: Laterality: bilateral Category: Medical Code(s): J18.9 - Pneumonia, unspecified organism Plan Mr. Medeiros is a 68-year-old male significant smoking history COPD stage III adenocarcinoma lung s/p chemo radiation and immunotherapy with recurrence currently following with oncology presented to the hospital with continued decline in his respiratory status and increasing oxygen requirements and pulmonary was called for further evaluation and management. Labs on admission leukopenia noted with ANC at 1400. CT on this admission negative for pulmonary embolism compared from his most recent CT from the ER and PET scan from August, noted to have new right upper lobe and lower lobe pulmonary nodules along with sligh worsening right lower lobe micronodular opacities along with bronchial thickening. Right main bronchus haziness noted likely motion artifact. No obvious endobronchial lesion appreciated. Auscultation bilateral diffuse wheezing. ABG on admission showed hypercarbic respiratory failure improved status post noninvasive ventilator therapy. 1+ Bilateral lower extremity swelling noted. Plan: DuoNebs every 4 hours along with Pulmicort every 12 scheduled Continue oxygen supplementation to maintain O2 saturation goal of 90 to 95%. On examination 3 L saturating 93% Initiate levofloxacin 750 mg daily pending repeat sputum cultures. Call lab requesting speciation on recent sputum cultures that showing yeast. Will hold off on initiating antifungal therapy at this point of time. Follow with CRP beta glucan and fungal serologies Volume optimization as per primary team and cardiology. Follow the recommendations. # Thank you for involving pulmonary in this patient care. Will continue to follow.
[2023-11-29 11:20] LABS: C-Reactive Protein 7.1 mg/L (0-4)
--- NOTE | 2023-11-29 11:23 | P.CONCA_ITS ---
History of Present Illness History of Present Illness Consult date: 11/29/23 Requesting physician: Clark Garland Consult reason: chest pain Chief complaint: SOA Additional Medical History:: History of present illness: 68-year-old white male with history of CAD status post stenting approximately 20 years ago. He also has diagnosis of mild carotid artery stenosis and paroxysmal atrial fibrillation which is not anticoagulated secondary to hematuria and chronic thrombocytopenia. Patient follows with Dr. 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 He is on salvage/palliative therapy. Patient presented to the emergency room with 1 week of worsening dyspnea on exertion hypoxia confusion and decreased appetite. On workup he was found to have hypercapnic respiratory failure. CTA showed no PE or pneumonia and reported stable right hilar lymphadenopathy. White blood cell count 1.7, 5 sets of troponin are normal, EKG shows sinus rhythm with incomplete right bundle branch block but no evidence of ischemia. On my evaluation patient is sitting up bedside in tripod position on BiPAP which is helping his symptoms some. He denies chest pain. Family is bedside and states he does not complain of chest pain, just shortness of breath. 2D echo is ordered and pending. [facility] Disclaimer: The information contained in this section may have been updated after the patient was seen, as this information can be updated by other users. Medical History Acute respiratory failure with hypoxia Acute hypercapnic respiratory failure Elbow mass Swelling Hilar lymphadenopathy Allergic rhinitis History of lung or bronchial cancer Mediastinal lymphadenopathy PAF (paroxysmal atrial fibrillation) COPD (chronic obstructive pulmonary disease) Dyspnea on exertion Malignant neoplasm of unspecified part of unspecified bronchus or lung Pulmonary emphysema Smoking greater than 30 pack years Tobacco abuse disorder Lung nodule Tobacco abuse counseling HAP (hospital-acquired pneumonia) Influenza A Acute on chronic respiratory failure with hypoxia and hypercapnia Tobacco abuse AAA (abdominal aortic aneurysm) Melanoma Thyroid disease Sinus problem History of radiation therapy History of chemotherapy Cataract Myocardial infarction Lung disease Pacemaker DVT (deep venous thrombosis) Cancer Atherosclerotic heart disease Hypotension HLD (hyperlipidemia) Abnormal EKG CAD (coronary artery disease) CHF (congestive heart failure) Gout Hypertension Hypothyroidism COPD exacerbation Surgical History H/O melanoma excision History of heart artery stent History of cardiac cath History of colonoscopy Family History Other AAA (abdominal aortic aneurysm) Coronary artery disease Gout Heart attack Hypertension Social History Smoking Status: Former smoker tobacco type: cigarettes packs per day: 1 alcohol intake: former substance use type: denies use 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ional status: retired and disabled Travel in the last 8 weeks: None household members: spouse housing: house lives independently: No marital status: education level: high school service: No fci: No caffeine: No special honey needs: No agree to transfusion: No do you feel safe at home: Yes victim of physical abuse: No victim of emotional abuse: No victim of sexual abuse: No would you like helpful sources: No Review of Systems Constitutional Constitutional: Denies headache(s) and Reports weakness Eyes Eyes: Denies loss of vision ENT Ears, Nose, Mouth, and Throat: Denies headache(s) and Reports vertigo *Cardiovascular Cardiovascular: Denies chest pain and Reports dyspnea *Respiratory Respiratory: Denies cough and Reports dyspnea *Gastrointestinal Gastrointestinal: Denies change in stool character, Denies nausea and Denies vomiting *Genitourinary Genitourinary: Denies difficulty urinating *Musculoskeletal Musculoskeletal: Denies muscle weakness Integumentary/Breasts Skin/Breast: Denies changing lesions *Neurologic Neurologic: Denies headache(s), Denies loss of vision, Reports vertigo and Reports weakness Exam Data for Last 24 hours Vital signs and Labs for Last 24 Hours: Temp Pulse Resp BP Pulse Ox O2 Del Method O2 Flow Rate 97.6 F 84 16 108/64 L 93 L Nasal Cannula 4 11/29/23 08:00 11/29/23 10:22 11/29/23 08:00 11/29/23 08:00 11/29/23 10:22 11/29/23 10:22 11/29/23 10:22 FiO2 35 11/29/23 05:15 Laboratory Results - last 24 hr 11/28/23 16:57: WBC 3.0 L, RBC 4.32 L, Hgb 13.7 L, Hct 43.8, MCV 101.4 H, MCH 31.7 H, MCHC 31.3 L, RDW 16.2, Plt Count 109 L D, MPV 10.1, Neut % (Auto) 58.0, Lymph % (Auto) 24.1, [place] % (Auto) 12.4 H, Eos % (Auto) 3.3, Baso % (Auto) 2.1 H , Neut # (Auto) 1.7 L, Lymph # (Auto) 0.7, [place] # (Auto) 0.4, Eos # (Auto) 0.1, Baso # (Auto) 0.1, Sodium 130 L, Potassium 4.7, Chloride 81 L, Carbon Dioxide 45 H*, Anion Gap 8.7, BUN 13, Creatinine 0.50 L, Estimated Creat Clear 73, Estimated GFR 164, Est GFR ( Amer) 199 D, Glucose 96, Calcium 9.7, Magnesium 1.6, Total Bilirubin 0.7, AST 28, ALT 18, Alkaline Phosphatase 70, Troponin I < 0.01, Total Protein 7.7, Albumin 4.1, Globulin 3.6 H, Albumin/G lobulin Ratio 1.1, Procalcitonin 0.052 11/28/23 17:08: Specimen Source Left radial, O2 % 4lpm, ABG pH 7.31 L, ABG pCO2 84.4 H, ABG pO2 55.1 L, ABG HCO3 41.8 H, ABG Total CO2 44.4 H, ABG O2 Saturation 88 L, ABG Base Excess 15.6 H, Collin Test Acceptable 11/28/23 17:18: Chlamy pneumoniae PCR Not detected, Adenovirus (PCR) Not detected, B. pertussis DNA (PCR) Not detected, Coronavirus OC43 (PCR) Not detected, Coronavirus HKU1 (PCR) Not detected, Coronavirus 229E (PCR) Not detected, SARS-CoV-2 (PCR) Not detected, Coronavirus NL63 (PCR) Not detected, Human Metapneumovir PCR Not detected, Influenza A (H1) PCR Not detected, Influ A (H1N1/09) PCR Not detected, Influenza A (H3) PCR Not detected, Influenza Type A (PCR) Not detected, Influenza Type B (PCR) Not detected, M. pneumoniae (PCR) Not detected, Parainfluenza 1 (PCR) Not detected, Parainfluenza 2 (PCR) Not detected, Parainfluenza 3 (PCR) Not detected, Parainfluenza 4 (PCR) Not detected, RSV (PCR) Not detected, Entero/Rhino (PCR) Not detected 11/28/23 19:54: Troponin I < 0.01 11/28/23 22:48: Troponin I < 0.01 11/29/23 05:56: WBC 1.7 L* D, RBC 4.07 L, Hgb 13.0 L, Hct 41.1 L, MCV 101.1 H, MCH 32.0 H, MCHC 31.6 L, RDW 16.3, Plt Count 105 L, MPV 9.8, Neut % (Auto) 81.2 H, Lymph % (Auto) 16.1, [place] % (Auto) 2.2, Eos % (Auto) 0.3, Baso % (Auto) 0.1, Neut # (Auto) 1.4 L, Lymph # (Auto) 0.3 L, [place] # (Auto) 0.0 L, Eos # (Auto) 0.0, Baso # (Auto) 0.0, Sodium 128 L, Potassium 4.7, Chloride 78 L, Carbon Dioxide 40 H, Anion Gap 14.7, BUN 16, Creatinine 0.50 L, Estimated Creat Clear 71, Estimated GFR 164, Est GFR ( Amer) 199, Glucose 142 H D, Calcium 9.4, Troponin I < 0.01 11/29/23 06:00: ABG pH 7.43, ABG pCO2 62.9 H, ABG pO2 56.0 L, ABG HCO3 40.6 H, ABG Total CO2 42.6 H, ABG O2 Saturation 88 L, ABG Base Excess 16.3 H I & O for Last 24 hours: Intake & Output 11/26/23 11/27/23 11/28/23 11/29/23 23:59 23:59 23:59 23:59 Intake Total 360 / 360 Output Total 950 / 950 Balance -590 / -590 Weight 160 lb 160 lb 6.4 oz Constitutional Constitutional: no acute distress, mild distress and cooperative *Routine HEENT Exam Eye: Present PERRL *Routine Respiratory Exam Respiratory: Present CTA bilaterally and diminished air movement; Absent accessory muscle use or crackles *Routine Cardiovascular Exam Cardiovascular: Present RRR, Normal S1 and Normal S2; Absent murmur, gallop or rubs *Routine Abdominal Exam Abdominal: Present soft; Absent tenderness *Routine Extremities Exam Extremities: Present pulses intact; Absent cyanosis or edema *Routine Skin Exam Skin: Present intact; Absent erythema or wounds *Routine Neurological Exam Neurological: Present alert and oriented X3 Routine Psychiatric Exam Psychiatric: Present cooperative Meds Home Medications and Allergies Home Medications Medication Instructions Recorded Confirmed Type allopurinol 300 mg tablet 300 mg PO DAILY 12/22/17 11/28/23 History lovastatin 40 mg tablet 40 mg PO HS 12/22/17 11/28/23 History aspirin 81 mg tablet,delayed 81 mg PO DAILY 08/24/20 11/28/23 History release levothyroxine 150 mcg tablet 150 mcg PO DAILY 02/02/23 11/28/23 History spironolactone 25 mg tablet 25 mg PO DAILY 05/11/23 11/28/23 History azelastine 137 mcg (0.1 %) nasal 2 spray intranasal HS 90 days #30 09/11/23 11/28/23 Rx spray aerosol mL fluticasone fur. 100 mcg-umeclid 1 inh inhalation DAILY 90 days #90 11/08/23 11/28/23 Rx 62.5 mcg-vilant 25 mcg ea inhalat.powder (Trelegy Ellipta) fluticasone propionate 50 2 spray intranasal DAILY 90 days 11/20/23 11/28/23 Rx mcg/actuation nasal #16 grams spray,suspension (Flonase Allergy Relief) ipratropium 0.5 mg-albuterol 3 mg 3 ml inhalation QIDP PRN shortness 11/22/23 11/28/23 History (2.5 mg base)/3 mL nebulization of breath or wheezing soln metoprolol succinate 25 mg 25 mg PO HS 11/22/23 11/28/23 History tablet,extended release 24 hr fluconazole 100 mg tablet 100 mg PO DAILY #10 tabs 11/24/23 11/28/23 Rx (Diflucan) New Prescriptions to Start Prescriptions: Allergies Allergy/AdvReac Type Severity Reaction Status Date / Time No Known Drug Allergies Allergy Unknown Unknown Verified 11/20/23 15:11 [NKDA] allergy reaction Assessment and Plan *Assessment and plan (1) Acute hypercapnic respiratory failure: Status: Acute Category: Medical Code(s): J96.02 - Acute respiratory failure with hypercapnia (2) Metastatic malignant neoplasm: Status: Acute Category: Medical Code(s): C79.9 - Secondary malignant neoplasm of unspecified site (3) Acute exacerbation of chronic obstructive pulmonary disease: Status: Acute Category: Medical Code(s): J44.1 - Chronic obstructive pulmonary disease with (acute) exacerbation Plan CAD - s/p PCI 20 years ago - pt currently denies chest pain, was likely secondary to resp failure/distress - CTA - neg for PE/PNA - EKG - SR - Serial Trop (x5) - nml - ECHO - pending - Plan: cont ASA and statin, check ECHO PAF - SR here - historically not on OAC due to hematuria and thrombocytopenia - Plan: cont ASA and home dose metoprolol Acute on chronic hypoxic, hypercapnic respiratory failure -Secondary to underlying COPD and malignant adenocarcinoma -Plans: per pulmonology Adenocarcinoma right upper lobe with mets to bones -Per heme-onc and pulmonology 11/28 CV summary: Not an anginal description, CTA, EKG ok. ECHO shows normal EF, no wall motion changes or sig valve dz. This appears to be pulmonary issue. No further inpatient CV workup warranted at this time. We will sign off but patient can f/u in our office 2 weeks post discharge.
[2023-11-29 11:32] LABS: Procalcitonin 0.052 ng/mL (0.0-2.0)
[2023-11-29] MEDS: LEVOFLOXACIN/D5W 750 MG/150 ML 750 MG/150 ML PIGGYBACK 100 MG IV (11:52)
[2023-11-29] MEDS: BUDESONIDE 0.5MG/2ML NEB 0.5 MG IH (17:51)
[2023-11-29] MEDS: PRAVASTATIN 40MG TAB 40 MG PO (20:16)
[2023-11-29] MEDS: METOPROLOL SUCCINATE XL 25MG TABLET 25 MG PO (20:17)
[2023-11-30] VITALS (19 sets, daily range): BP systolic 91–129; BP diastolic 54–71; PULSE 7–104; RESP 17–20; TEMP 36.4–36.9; O2SAT 89–96; BMI 25.2
[2023-11-30] MEDS: IPRATROPIUM/ALBUTEROL 3 ML NEB IH ×6 (01:57→22:24)
--- NOTE | 2023-11-30 05:56 | PC.NURSE ---
Pt is alert and oriented. No complaints from patient. Rested well through the night. While sleeping, pt sat dropped to 82%, increased to 5L NC, pt maintaining 92%. Purewick in place. Lung sounds rhonchi and wheezing. Call light in reach.
[2023-11-30] MEDS: BUDESONIDE 0.5MG/2ML NEB 0.5 MG IH ×2 (06:07→17:11)
--- NOTE | 2023-11-30 08:13 | P.PN_ITS ---
Subjective *Date: 11/30/23 *Time: 08:54 Interval history: Patient is feeling much better today. Wore BIPAP off and on yesterday but has been on nasal oxygen since all night. He feels his SOA has improved. Denies any pain. Slept better and was able to eat this am. Medical Exam Vital signs and Labs for Last 24 Hours: Vital Signs Temp Pulse Pulse Resp BP Pulse Ox O2 Del Method 11/30/23 06:50 Nasal Cannula 11/30/23 06:12 80 11/30/23 06:07 81 11/30/23 06:07 85 11/30/23 06:07 96 Nasal Cannula 11/30/23 05:00 Nasal Cannula 11/30/23 04:00 97.9 F 7 L 20 110/60 90 L Nasal Cannula 11/30/23 03:00 Nasal Cannula 11/30/23 01:57 85 11/30/23 01:00 Nasal Cannula 11/30/23 00:00 80 11/30/23 00:00 97.7 F 91 H 20 91/54 L 90 L Nasal Cannula 11/29/23 23:37 90 11/29/23 23:00 Nasal Cannula 11/29/23 22:56 77 11/29/23 21:00 Nasal Cannula 11/29/23 20:00 Nasal Cannula 11/29/23 20:00 98.2 F 88 22 115/66 93 L Nasal Cannula 11/29/23 18:50 Nasal Cannula 11/29/23 17:52 82 11/29/23 17:52 95 Nasal Cannula 11/29/23 17:00 Nasal Cannula 11/29/23 16:00 80 11/29/23 16:00 97.6 F 79 16 117/53 L 95 Nasal Cannula 11/29/23 15:00 Nasal Cannula 11/29/23 14:13 77 11/29/23 14:13 74 11/29/23 13:00 Nasal Cannula 11/29/23 12:00 80 11/29/23 11:38 97.6 F 86 18 105/63 L 90 L BiPAP 11/29/23 11:00 BiPAP 11/29/23 10:22 84 11/29/23 10:22 78 11/29/23 10:22 93 L Nasal Cannula 11/29/23 09:00 BiPAP O2 Flow Rate 11/30/23 06:50 4 11/30/23 06:12 11/30/23 06:07 11/30/23 06:07 11/30/23 06:07 5 11/30/23 05:00 5 11/30/23 04:00 5 11/30/23 03:00 5 11/30/23 01:57 11/30/23 01:00 4 11/30/23 00:00 11/30/23 00:00 11/29/23 23:37 11/29/23 23:00 4 11/29/23 22:56 11/29/23 21:00 3 11/29/23 20:00 3 11/29/23 20:00 3 11/29/23 18:50 3 11/29/23 17:52 11/29/23 17:52 5 11/29/23 17:00 3 11/29/23 16:00 11/29/23 16:00 5 11/29/23 15:00 3 11/29/23 14:13 11/29/23 14:13 11/29/23 13:00 3 11/29/23 12:00 11/29/23 11:38 11/29/23 11:00 11/29/23 10:22 11/29/23 10:22 11/29/23 10:22 4 11/29/23 09:00 Intake and Output 11/29/23 11/30/23 11/30/23 19:59 03:59 11:59 Intake Total 720 / 840 120 / 840 Output Total 600 / 1200 600 / 1200 Balance 120 / -360 -480 / -360 Intake: Intake, Oral Amount 720 / 840 120 / 840 Output: Output, Urine Amount 600 / 1200 600 / 1200 Other: Number of Unmeasured Voids 0 Weight 166 lb 12.8 oz Patient Weight 11/30/23 11:59 Weight 166 lb 12.8 oz Laboratory Results - last 24 hr 11/29/23 10:50: C-Reactive Protein 7.1 H, Procalcitonin 0.052 I & O for Labs for Last 24 Hours: Intake & Output 11/27/23 11/28/23 11/29/23 11/30/23 11:59 11:59 11:59 11:59 Intake Total 480 / 480 840 / 840 Output Total 950 / 950 1200 / 1200 Balance -470 / -470 -360 / -360 Weight 160 lb 6.4 oz 166 lb 12.8 oz Microbiology Reports for the Last 24 Hours: Microbiology 11/29/23 03:30 Sputum - Expectorated Sputum Gram Stain - Final Constitutional: Present no acute distress Respiratory: Present wheezes (anterior and posterior); Absent rales Cardiac: Present Reg Rate and Rhythm GI: Present soft and normal bowel sounds; Absent distention or tenderness Extremities: Present edema (trace LE) Skin: Present intact Neuro: Present alert, awake and oriented x 3 Assessment and Plan *Assessment and plan (1) Acute hypoxic on chronic hypercapnic respiratory failure: Status: Acute Category: Medical Code(s): J96.01 - Acute respiratory failure with hypoxia; J96.12 - Chronic respiratory failure with hypercapnia (2) Neutropenia: Status: Acute Category: Medical Code(s): D70.9 - Neutropenia, unspecified (3) Malignant neoplasm of unspecified part of unspecified bronchus or lung: Status: Chronic Category: Medical Code(s): C34.90 - Malignant neoplasm of unspecified part of unspecified bronchus or lung (4) COPD (chronic obstructive pulmonary disease): Status: Acute Category: Medical Code(s): J44.9 - Chronic obstructive pulmonary disease, unspecified (5) Shortness of breath: Status: Acute Category: Medical Code(s): R06.02 - Shortness of breath (6) History of ASCVD: Status: Chronic Category: Medical Code(s): Z86.79 - Personal history of other diseases of the circulatory system (7) PAF (paroxysmal atrial fibrillation): Status: Acute Category: Medical Code(s): I48.0 - Paroxysmal atrial fibrillation (8) Pulmonary emphysema: Status: Chronic Qualifiers: Emphysema type: unspecified Qualified Code(s): J43.9 - Emphysema, unspecified Category: Medical Code(s): J43.9 - Emphysema, unspecified (9) Hypothyroidism: Status: Chronic Category: Medical Code(s): E03.9 - Hypothyroidism, unspecified (10) Hypertension: Status: Chronic Qualifiers: Hypertension type: essential hypertension Qualified Code(s): I10 - Essential (primary) hypertension Category: Medical Code(s): I10 - Essential (primary) hypertension (11) HLD (hyperlipidemia): Status: Chronic Qualifiers: Hyperlipidemia type: mixed hyperlipidemia Qualified Code(s): E78.2 - Mixed hyperlipidemia Category: Medical Code(s): E78.5 - Hyperlipidemia, unspecified (12) CHF (congestive heart failure): Status: Chronic Qualifiers: Heart failure chronicity: chronic Heart failure type: diastolic Qualified Code(s): I50.32 - Chronic diastolic (congestive) heart failure Category: Medical Code(s): I50.9 - Heart failure, unspecified (13) CAD (coronary artery disease): Status: Chronic Qualifiers: Associated angina: without angina Coronary Disease-Associated Artery/Lesion type: [place] artery [place] vs. transplanted heart: [place] heart Qualified Code(s): I25.10 - Atherosclerotic heart disease of [place] coronary artery without angina pectoris Category: Medical Code(s): I25.10 - Atherosclerotic heart disease of [place] coronary artery without angina pectoris Plan Was seen by pulmonology who ordered DuoNebs every 4 hours along with Pulmicort every 12 scheduled. He wants to continue oxygen supplementation to maintain an O2 saturation goal of 90 to 95%. He initiated levofloxacin 750 mg daily pending repeat sputum cultures. Cardiology saw the patient and ordered an echo which is still pending. Patient is improving. Will discuss further care with Dr. Wang. Dr. Wang entry - Saw patient, agree with above note. He has improved, continue current treatment, await cultures.
--- NOTE | 2023-11-30 09:34 | P.PN_ITS ---
Subjective *Date: 11/30/23 *Time: 09:56 Interval history: No acute respiratory events overnight. Patient admits continued improvement in his respiratory symptoms. Pulmonology Exam Inpatient Vital signs and Labs for Last 24 Hours: Temp Pulse Resp BP Pulse Ox O2 Del Method O2 Flow Rate 97.7 F 94 H 20 100/57 L 91 L Nasal Cannula 4 11/30/23 08:00 11/30/23 08:00 11/30/23 08:00 11/30/23 08:00 11/30/23 08:00 11/30/23 08:00 11/30/23 08:00 FiO2 35 11/29/23 05:15 Laboratory Results - last 24 hr 11/29/23 10:50: C-Reactive Protein 7.1 H, Procalcitonin 0.052 Temp Pulse Resp BP Pulse Ox O2 Del Method O2 Flow Rate 97.6 F 90 16 108/64 L 86 L Nasal Cannula 3 11/29/23 08:00 11/29/23 08:00 11/29/23 08:00 11/29/23 08:00 11/29/23 08:00 11/29/23 08:00 11/29/23 08:00 FiO2 35 11/29/23 05:15 Laboratory Results - last 24 hr 11/28/23 16:57: WBC 3.0 L, RBC 4.32 L, Hgb 13.7 L, Hct 43.8, MCV 101.4 H, MCH 31.7 H, MCHC 31.3 L, RDW 16.2, Plt Count 109 L D, MPV 10.1, Neut % (Auto) 58.0, Lymph % (Auto) 24.1, [place] % (Auto) 12.4 H, Eos % (Auto) 3.3, Baso % (Auto) 2.1 H , Neut # (Auto) 1.7 L, Lymph # (Auto) 0.7, [place] # (Auto) 0.4, Eos # (Auto) 0.1, Baso # (Auto) 0.1, Sodium 130 L, Potassium 4.7, Chloride 81 L, Carbon Dioxide 45 H*, Anion Gap 8.7, BUN 13, Creatinine 0.50 L, Estimated Creat Clear 73, Estimated GFR 164, Est GFR ( Amer) 199 D, Glucose 96, Calcium 9.7, Magnesium 1.6, Total Bilirubin 0.7, AST 28, ALT 18, Alkaline Phosphatase 70, Troponin I < 0.01, Total Protein 7.7, Albumin 4.1, Globulin 3.6 H, Albumin/Globulin Ratio 1.1, Procalcitonin 0.052 11/28/23 17:08: Specimen Source Left radial, O2 % 4lpm, ABG pH 7.31 L, ABG pCO2 84.4 H, ABG pO2 55.1 L, ABG HCO3 41.8 H, ABG Total CO2 44.4 H, ABG O2 Saturation 88 L, ABG Base Excess 15.6 H, [place] Test Acceptable 11/28/23 17:18: Chlamy pneumoniae PCR Not detected, Adenovirus (PCR) Not detected, B. pertussis DNA (PCR) Not detected, Coronavirus OC43 (PCR) Not detected, Coronavirus HKU1 (PCR) Not detected, Coronavirus 229E (PCR) Not detected, SARS-CoV-2 (PCR) Not detected, Coronavirus NL63 (PCR) Not detected, Human Metapneumovir PCR Not detected, Influenza A (H1) PCR Not detected, Influ A (H1N1/09) PCR Not detected, Influenza A (H3) PCR Not detected, Influenza Type A (PCR) Not detected, Influenza Type B (PCR) Not detected, M. pneumoniae (PCR) Not detected, Parainfluenza 1 (PCR) Not detected, Parainfluenza 2 (PCR) Not detected, Parainfluenza 3 (PCR) Not detected, Parainfluenza 4 (PCR) Not detected, RSV (PCR) Not detected, Entero/Rhino (PCR) Not detected 11/28/23 19:54: Troponin I < 0.01 11/28/23 22:48: Troponin I < 0.01 11/29/23 05:56: WBC 1.7 L* D, RBC 4.07 L, Hgb 13.0 L, Hct 41.1 L, MCV 101.1 H, MCH 32.0 H, MCHC 31.6 L, RDW 16.3, Plt Count 105 L, MPV 9.8, Neut % (Auto) 81.2 H, Lymph % (Auto) 16.1, [place] % (Auto) 2.2, Eos % (Auto) 0.3, Baso % (Auto) 0.1, Neut # (Auto) 1.4 L, Lymph # (Auto) 0.3 L, [place] # (Auto) 0.0 L, Eos # (Auto) 0.0, Baso # (Auto) 0.0, Sodium 128 L, Potassium 4.7, Chloride 78 L, Carbon Dioxide 40 H, Anion Gap 14.7, BUN 16, Creatinine 0.50 L, Estimated Creat Clear 71, Estimated GFR 164, Est GFR ( Amer) 199, Glucose 142 H D, Calcium 9.4, Troponin I < 0.01 11/29/23 06:00: ABG pH 7.43, ABG pCO2 62.9 H, ABG pO2 56.0 L, ABG HCO3 40.6 H, ABG Total CO2 42.6 H, ABG O2 Saturation 88 L, ABG Base Excess 16.3 H I & O for Labs for Last 24 Hours: Intake & Output 11/27/23 11/28/23 11/29/23 11/30/23 23:59 23:59 23:59 23:59 Intake Total 1200 / 1320 655 / 655 Output Total 1550 / 2150 1300 / 1300 Balance -350 / -830 -645 / -645 Weight 160 lb 160 lb 6.4 oz 166 lb 12.8 oz Intake & Output 11/26/23 11/27/23 11/28/23 11/29/23 23:59 23:59 23:59 23:59 Intake Total 360 / 360 Output Total 950 / 950 Balance -590 / -590 Weight 160 lb 160 lb 6.4 oz Microbiology Reports for the Last 24 Hours: Microbiology 11/29/23 03:30 Sputum - Expectorated Sputum Gram Stain - Final Constitutional: Present severe distress Head: Present normocephalic and atraumatic ENT: Present normal exam, normal oropharynx and mucous membranes moist Neck: Present normal inspection and full ROM Respiratory: Present prolonged expiratory phase, respiratory distress, rhonchi, diminished air movement and able to speak in complete sentences; Absent wheezes Cardiac: Present S1/S2, Tachycardia and radial pulses present GI: Present soft and distention; Absent tenderness or guarding Skin: Present intact; Absent cyanosis or jaundice Neuro: Present alert, awake and oriented x 3 Extremities: Present normal inspection; Absent clubbing or cyanosis Psychiatric: Present normal affect and cooperative Assessment and Plan *Assessment and plan (1) Acute exacerbation of chronic obstructive pulmonary disease: Status: Acute Category: Medical Code(s): J44.1 - Chronic obstructive pulmonary disease with (acute) exacerbation (2) Acute hypercapnic respiratory failure: Status: Acute Category: Medical Code(s): J96.02 - Acute respiratory failure with hypercapnia (3) Acute respiratory failure with hypoxia: Status: Acute Category: Medical Code(s): J96.01 - Acute respiratory failure with hypoxia (4) Pneumonia: Status: Acute Qualifiers: Laterality: bilateral Category: Medical Code(s): J18.9 - Pneumonia, unspecified organism Plan Mr. Medeiros is a 68-year-old male significant smoking history COPD stage III adenocarcinoma lung s/p chemo radiation and immunotherapy with recurrence currently following with oncology presented to the hospital with continued decline in his respiratory status and increasing oxygen requirements and pulmonary was called for further evaluation and management. Labs on admission leukopenia noted with ANC at 1400. CT on this admission negative for pulmonary embolism compared from his most recent CT from the ER and PET scan from August, noted to have new right upper lobe and lower lobe pulmonary nodules along with sligh worsening right lower lobe micronodular opacities along with bronchial thickening. Right main bronchus haziness noted likely motion artifact. No obvious endobronchial lesion appreciated. On initial examination auscultation bilateral diffuse wheezing. ABG on admission showed hypercarbic respiratory failure improved status post noninvasive ventilator therapy. 1+ Bilateral lower extremity swelling noted. Interval update: No acute respiratory events overnight. Improving oxygen, weaned to 2 L this morning. Significant improvement in wheezing. Plan: Incentive spirometry and flutter valve Lasix 40mg IV once DuoNebs every 4 hours along with Pulmicort every 12 scheduled Continue oxygen supplementation to maintain O2 saturation goal of 90 to 95%. Continue levofloxacin 750 mg daily pending repeat sputum cultures. Call lab requesting speciation on recent sputum cultures that showing yeast. Will hold off on initiating antifungal therapy at this point of time. Follow with sputum Gram stain cultures. Specimen collected today. Will obtain another sample for fungal cultures. Follow with CRP beta glucan and fungal serologies Volume optimization as per primary team and cardiology. Follow the recommendat ions. # Thank you for involving pulmonary in this patient care. Will continue to follow.
[2023-11-30] MEDS: FUROSEMIDE 40MG/4ML VIAL 40 MG IV (11:01)
[2023-11-30] MEDS: LEVOFLOXACIN/D5W 750 MG/150 ML 750 MG/150 ML PIGGYBACK 100 MG IV (11:01)
--- NOTE | 2023-11-30 17:23 | PC.NURSE ---
Pt a&ox4 and vss. Unable to wean patient's O2 past 3L NC. Patient dropped to mid 80s o2 sat on 2LNC. Patient tolerating iv abx and having good uop.
--- NOTE | 2023-11-30 18:52 | PC.NURSE ---
Dr. Dudley paged at 1828 r/t patient having a heart rate sustained in the 130s while sitting on the side of the bed. Dr. Dudley has yet to call RN back. Patient was assisted to laying back down in bed and heart rate lowered to 108 at rest.
[2023-11-30] MEDS: METOPROLOL SUCCINATE XL 25MG TABLET 25 MG PO (19:04)
[2023-11-30] MEDS: PRAVASTATIN 40MG TAB 40 MG PO (20:30)
[2023-12-01] VITALS (10 sets, daily range): BP systolic 105–117; BP diastolic 58–76; PULSE 80–100; RESP 17–20; TEMP 36.5–36.9; O2SAT 90–95; BMI 25.6
[2023-12-01] MEDS: IPRATROPIUM/ALBUTEROL 3 ML NEB IH ×5 (02:08→18:13)
--- NOTE | 2023-12-01 04:57 | PC.NURSE ---
HAS SLEPT AT SHORT INTERVALS. DENIES PAIN. HAS SOA WITH MINIMAL EXERTION. DID NOT USE BIPAP TONIGHT. 02 SAT 95% AT 5LNC. HAS INSP AND EXP WHEEZES. NO COUGH NOTED. DENIES PAIN. SINUS ARRHYTHMIA ON TELE. PUREWICK IN USE.
[2023-12-01] MEDS: BUDESONIDE 0.5MG/2ML NEB 0.5 MG IH ×2 (06:19→18:13)
--- NOTE | 2023-12-01 08:07 | P.PN_ITS ---
Subjective *Date: 12/01/23 *Time: 08:49 Interval history: Patient feels about the same today. Denies any pain. SOA is the same, still wheezing. He slept off and on last night. He was able to eat a little breakfast. Medical Exam Vital signs and Labs for Last 24 Hours: Vital Signs Temp Pulse Pulse Resp BP Pulse Ox O2 Del Method 12/01/23 07:54 97.7 F 98 H 20 117/71 94 L Nasal Cannula 12/01/23 06:32 Nasal Cannula 12/01/23 05:00 Nasal Cannula 12/01/23 04:00 98.0 F 90 17 113/58 L 95 Nasal Cannula 12/01/23 04:00 86 12/01/23 03:00 Nasal Cannula 12/01/23 02:08 84 12/01/23 00:54 Nasal Cannula 12/01/23 00:00 89 11/30/23 23:57 97.9 F 86 17 117/66 95 Nasal Cannula 11/30/23 23:00 Nasal Cannula 11/30/23 22:24 84 11/30/23 20:49 Nasal Cannula 11/30/23 20:15 98 H 11/30/23 20:00 93 L Nasal Cannula 11/30/23 19:51 97.9 F 104 H 17 129/71 92 L Nasal Cannula 11/30/23 17:19 90 L Nasal Cannula 11/30/23 17:12 82 11/30/23 16:00 90 11/30/23 16:00 98.4 F 94 H 18 111/66 92 L Nasal Cannula 11/30/23 14:48 79 11/30/23 14:48 78 11/30/23 14:48 93 L Nasal Cannula 11/30/23 13:00 Nasal Cannula 11/30/23 12:00 95 H 11/30/23 11:19 97.6 F 80 18 113/70 91 L Nasal Cannula 11/30/23 10:35 89 L Nasal Cannula 11/30/23 10:34 82 11/30/23 10:34 88 O2 Flow Rate 12/01/23 07:54 3 12/01/23 06:32 5 12/01/23 05:00 5 12/01/23 04:00 5 12/01/23 04:00 12/01/23 03:00 5 12/01/23 02:08 12/01/23 00:54 5 12/01/23 00:00 11/30/23 23:57 5 11/30/23 23:00 5 11/30/23 22:24 11/30/23 20:49 5 11/30/23 20:15 11/30/23 20:00 5 11/30/23 19:51 5 11/30/23 17:19 3 11/30/23 17:12 11/30/23 16:00 11/30/23 16:00 3 11/30/23 14:48 11/30/23 14:48 11/30/23 14:48 4 11/30/23 13:00 11/30/23 12:00 11/30/23 11:19 3 11/30/23 10:35 3 11/30/23 10:34 11/30/23 10:34 Intake and Output 11/30/23 12/01/23 12/01/23 19:59 03:59 11:59 Intake Total 1075 / 2077 462 / 2077 540 / 2077 Output Total 800 / 1400 300 / 1400 300 / 1400 Balance 275 / 677 162 / 677 240 / 677 Intake: Intake, Oral Amount 1075 / 2077 462 / 2077 540 / 2077 Output: Output, Urine Amount 800 / 1400 300 / 1400 300 / 1400 Other: Number of Unmeasured Voids 0 0 Weight 169 lb 0.16 oz Patient Weight 12/01/23 11:59 Weight 169 lb 0.16 oz I & O for Labs for Last 24 Hours: Intake & Output 11/28/23 11/29/23 11/30/23 12/01/23 11:59 11:59 11:59 11:59 Intake Total 480 / 480 1375 / 1375 2077 / 2077 Output Total 950 / 950 1900 / 1900 1400 / 1400 Balance -470 / -470 -525 / -525 677 / 677 Weight 160 lb 6.4 oz 166 lb 12.8 oz 169 lb 0.16 oz Microbiology Reports for the Last 24 Hours: Microbiology 11/30/23 09:53 Sputum - Expectorated Sputum FLAVIO Preparation - Final Constitutional: Present no acute distress Respiratory: Present wheezes (anterior and posterior); Absent rales Cardiac: Present Reg Rate and Rhythm GI: Present soft and normal bowel sounds; Absent distention or tenderness Extremities: Absent edema Skin: Present intact Neuro: Present alert, awake and oriented x 3 Assessment and Plan *Assessment and plan (1) Acute hypoxic on chronic hypercapnic respiratory failure: Status: Acute Category: Medical Code(s): J96.01 - Acute respiratory failure with hypoxia; J96.12 - Chronic respiratory failure with hypercapnia (2) Neutropenia: Status: Acute Category: Medical Code(s): D70.9 - Neutropenia, unspecified (3) Malignant neoplasm of unspecified part of unspecified bronchus or lung: Status: Chronic Category: Medical Code(s): C34.90 - Malignant neoplasm of unspecified part of unspecified bronchus or lung (4) COPD (chronic obstructive pulmonary disease): Status: Acute Category: Medical Code(s): J44.9 - Chronic obstructive pulmonary disease, unspecified (5) Shortness of breath: Status: Acute Category: Medical Code(s): R06.02 - Shortness of breath (6) History of ASCVD: Status: Chronic Category: Medical Code(s): Z86.79 - Personal history of other diseases of the circulatory system (7) PAF (paroxysmal atrial fibrillation): Status: Acute Category: Medical Code(s): I48.0 - Paroxysmal atrial fibrillation (8) Pulmonary emphysema: Status: Chronic Qualifiers: Emphysema type: unspecified Qualified Code(s): J43.9 - Emphysema, unspecified Category: Medical Code(s): J43.9 - Emphysema, unspecified (9) Hypothyroidism: Status: Chronic Category: Medical Code(s): E03.9 - Hypothyroidism, unspecified (10) Hypertension: Status: Chronic Qualifiers: Hypertension type: essential hypertension Qualified Code(s): I10 - Essential (primary) hypertension Category: Medical Code(s): I10 - Essential (primary) hypertension (11) HLD (hyperlipidemia): Status: Chronic Qualifiers: Hyperlipidemia type: mixed hyperlipidemia Qualified Code(s): E78.2 - Mixed hyperlipidemia Category: Medical Code(s): E78.5 - Hyperlipidemia, unspecified (12) CHF (congestive heart failure): Status: Chronic Qualifiers: Heart failure chronicity: chronic Heart failure type: diastolic Qualified Code(s): I50.32 - Chronic diastolic (congestive) heart failure Category: Medical Code(s): I50.9 - Heart failure, unspecified (13) CAD (coronary artery disease): Status: Chronic Qualifiers: Associated angina: without angina Coronary Disease-Associated Artery/Lesion type: [place] artery [place] vs. transplanted heart: [place] heart Qualified Code(s): I25.10 - Atherosclerotic heart disease of [place] coronary artery without angina pectoris Category: Medical Code(s): I25.10 - Atherosclerotic heart disease of [place] coronary artery without angina pectoris Plan Pulmonology gave patient a one time dose of lasix yesterday. Will continue abx pending cultures. FLAVIO prep did show budding yeast. Echo report still pending however cardiology said there was a normal EF and no wall motion changes or significant valve disease. Dr. Wang entry - Saw patient, agree with above note. He continues to improve slowly. Plan to continue current treatment.
--- NOTE | 2023-12-01 08:21 | DIET.NUTRFU ---
No BM since admit on 11/27, upon interview patient denies any discomfort. Reported to provider and miralax was added. Meal intake has been fair with 2 ensure daily helping to meet caloric needs. Has maintained weight since last admit on 11/23
[2023-12-01] MEDS: POLYETHYLENE GLYCOL 3350 17 GM PACKET PO (08:52)
--- NOTE | 2023-12-01 09:17 | EXP.PULM.PN ---
Subjective *Date: 12/01/23 *Time: 10:06 Interval history: No acute respiratory events overnight Pulmonology Exam Inpatient Vital signs and Labs for Last 24 Hours: Temp Pulse Resp BP Pulse Ox O2 Del Method O2 Flow Rate 97.7 F 100 H 20 117/71 94 L Nasal Cannula 3 12/01/23 07:54 12/01/23 08:00 12/01/23 07:54 12/01/23 07:54 12/01/23 07:54 12/01/23 07:54 12/01/23 07:54 FiO2 35 11/29/23 05:15 Temp Pulse Resp BP Pulse Ox O2 Del Method O2 Flow Rate 97.6 F 90 16 108/64 L 86 L Nasal Cannula 3 11/29/23 08:00 11/29/23 08:00 11/29/23 08:00 11/29/23 08:00 11/29/23 08:00 11/29/23 08:00 11/29/23 08:00 FiO2 35 11/29/23 05:15 Laboratory Results - last 24 hr 11/28/23 16:57: WBC 3.0 L, RBC 4.32 L, Hgb 13.7 L, Hct 43.8, MCV 101.4 H, MCH 31.7 H, MCHC 31.3 L, RDW 16.2, Plt Count 109 L D, MPV 10.1, Neut % (Auto) 58.0, Lymph % (Auto) 24.1, [place] % (Auto) 12.4 H, Eos % (Auto) 3.3, Baso % (Auto) 2.1 H, Neut # (Auto) 1.7 L, Lymph # (Auto) 0.7, [place] # (Auto) 0.4, Eos # (Auto) 0.1, Baso # (Auto) 0.1, Sodium 130 L, Potassium 4.7, Chloride 81 L, Carbon Dioxide 45 H*, Anion Gap 8.7, BUN 13, Creatinine 0.50 L, Estimated Creat Clear 73, Estimated GFR 164, Est GFR ( Amer) 199 D, Glucose 96, Calcium 9.7, Magnesium 1.6, Total Bilirubin 0.7, AST 28, ALT 18, Alkaline Phosphatase 70, Troponin I < 0.01, Total Protein 7.7, Albumin 4.1, Globulin 3.6 H, Albumin/Globulin Ratio 1.1, Procalcitonin 0.052 11/28/23 17:08: Specimen Source Left radial, O2 % 4lpm, ABG pH 7.31 L, ABG pCO2 84.4 H, ABG pO2 55.1 L, ABG HCO3 41.8 H, ABG Total CO2 44.4 H, ABG O2 Saturation 88 L, ABG Base Excess 15.6 H, [place] Test Acceptable 11/28/23 17:18: Chlamy pneumoniae PCR Not detected, Adenovirus (PCR) Not detected, B. pertussis DNA (PCR) Not detected, Coronavirus OC43 (PCR) Not detected, Coronavirus HKU1 (PCR) Not detected, Coronavirus 229E (PCR) Not detected, SARS-CoV-2 (PCR) Not detected, Coronavirus NL63 (PCR) Not detected, Human Metapneumovir PCR Not detected, Influenza A (H1) PCR Not detected, Influ A (H1N1/09) PCR Not detected, Influenza A (H3) PCR Not detected, Influenza Type A (PCR) Not detected, Influenza Type B (PCR) Not detected, M. pneumoniae (PCR) Not detected, Parainfluenza 1 (PCR) Not detected, Parainfluenza 2 (PCR) Not detected, Parainfluenza 3 (PCR) Not detected, Parainfluenza 4 (PCR) Not detected, RSV (PCR) Not detected, Entero/Rhino (PCR) Not detected 11/28/23 19:54: Troponin I < 0.01 11/28/23 22:48: Troponin I < 0.01 11/29/23 05:56: WBC 1.7 L* D, RBC 4.07 L, Hgb 13.0 L, Hct 41.1 L, MCV 101.1 H, MCH 32.0 H, MCHC 31.6 L, RDW 16.3, Plt Count 105 L, MPV 9.8, Neut % (Auto) 81.2 H, Lymph % (Auto) 16.1, [place] % (Auto) 2.2, Eos % (Auto) 0.3, Baso % (Auto) 0.1, Neut # (Auto) 1.4 L, Lymph # (Auto) 0.3 L, [place] # (Auto) 0.0 L, Eos # (Auto) 0.0, Baso # (Auto) 0.0, Sodium 128 L, Potassium 4.7, Chloride 78 L, Carbon Dioxide 40 H, Anion Gap 14.7, BUN 16, Creatinine 0.50 L, Estimated Creat Clear 71, Estimated GFR 164, Est GFR ( Amer) 199, Glucose 142 H D, Calcium 9.4, Troponin I < 0.01 11/29/23 06:00: ABG pH 7.43, ABG pCO2 62.9 H, ABG pO2 56.0 L, ABG HCO3 40.6 H, ABG Total CO2 42.6 H, ABG O2 Saturation 88 L, ABG Base Excess 16.3 H I & O for Labs for Last 24 Hours: Intake & Output 11/28/23 11/29/23 11/30/23 12/01/23 23:59 23:59 23:59 23:59 Intake Total 1200 / 1320 2192 / 2192 540 / 540 Output Total 1550 / 2150 2400 / 2400 300 / 300 Balance -350 / -830 -208 / -208 240 / 240 Weight 160 lb 160 lb 6.4 oz 166 lb 12.8 oz 168 lb 14.691 oz Intake & Output 11/26/23 11/27/23 11/28/23 11/29/23 23:59 23:59 23:59 23:59 Intake Total 360 / 360 Output Total 950 / 950 Balance -590 / -590 Weight 160 lb 160 lb 6.4 oz Microbiology Reports for the Last 24 Hours: Microbiology 11/30/23 09:53 Sputum - Expectorated Sputum FLAVIO Preparation - Final Constitutional: Present severe distress Head: Present normocephalic and atraumatic ENT: Present normal exam, normal oropharynx and mucous membranes moist Neck: Present normal inspection and full ROM Respiratory: Present prolonged expiratory phase, respiratory distress, rhonchi, diminished air movement and able to speak in complete sentences; Absent wheezes Cardiac: Present S1/S2, Tachycardia and radial pulses present GI: Present soft and distention; Absent tenderness or guarding Skin: Present intact; Absent cyanosis or jaundice Neuro: Present alert, awake and oriented x 3 Extremities: Present normal inspection; Absent edema, clubbing or cyanosis Psychiatric: Present normal affect and cooperative Assessment and Plan *Assessment and plan (1) Acute exacerbation of chronic obstructive pulmonary disease: Status: Acute Category: Medical Code(s): J44.1 - Chronic obstructive pulmonary disease with (acute) exacerbation (2) Acute hypercapnic respiratory failure: Status: Acute Category: Medical Code(s): J96.02 - Acute respiratory failure with hypercapnia (3) Acute respiratory failure with hypoxia: Status: Acute Category: Medical Code(s): J96.01 - Acute respiratory failure with hypoxia (4) Pneumonia: Status: Acute Qualifiers: Laterality: bilateral Category: Medical Code(s): J18.9 - Pneumonia, unspecified organism Plan Mr. Medeiros is a 68-year-old male significant smoking history COPD stage III adenocarcinoma lung s/p chemo radiation and immunotherapy with recurrence currently following with oncology presented to the hospital with continued decline in his respiratory status and increasing oxygen requirements and pulmonary was called for further evaluation and management. Labs on admission leukopenia noted with ANC at 1400. CT on this admission negative for pulmonary embolism compared from his most recent CT from the ER and PET scan from August, noted to have new right upper lobe and lower lobe pulmonary nodules along with sligh worsening right lower lobe micronodular opacities along with bronchial thickening. Right main bronchus haziness noted likely motion artifact. No obvious endobronchial lesion appreciated. On initial examination auscultation bilateral diffuse wheezing. ABG on admission showed hypercarbic respiratory failure improved status post noninvasive ventilator therapy. 1+ Bilateral lower extremity swelling noted. Interval update: No acute respiratory events overnight. Improving oxygen, weaned to 2 L this morning. Significant improvement in wheezing. Sputum cultures continue to show yeast along with moderate gram-positive cocci in chains and gram-positive bacilli. Procalcitonin within normal limits. Afebrile. Hemodynamically stable. On this morning, saturating 91% on 2.5L. Auscultation no significant wheezing. Bilateral rhonchi. No LE edema noted. Plan: Incentive spirometry and flutter valve DuoNebs every 4 hours along with Pulmicort every 12 scheduled Continue oxygen supplementation to maintain O2 saturation goal of 90 to 95%. Lasix 40mg IV once Initiate itraconazole 200 mg twice daily Continue levofloxacin 750 mg daily pending repeat sputum cultures. Call lab requesting speciation on recent sputum cultures that showing yeast. Follow with repeat final sputum Gram stain cultures along with repeat fungal cultures. Both specimens collected as of today. Follow with beta glucan and fungal serologies # Thank you for involving pulmonary in this patient care. Will continue to follow.
[2023-12-01] MEDS: ITRACONAZOLE 100MG CAPSULE 200 MG PO (10:31)
[2023-12-01] MEDS: FUROSEMIDE 40MG/4ML VIAL 40 MG IV (10:31)
[2023-12-01] MEDS: LEVOFLOXACIN/D5W 750 MG/150 ML 750 MG/150 ML PIGGYBACK 100 MG IV (11:51)
[2023-12-03 17:35] LABS: Aspergillus flavus Negative (Neg:<1:1); Aspergillus fumigatus Negative (Neg:<1:1); Aspergillus niger Negative (Neg:<1:1); Blastomyces Antibody Negative (Neg:<1:1)
--- NOTE | 2023-12-04 14:48 | CARE MANAGER ---
Contacted patient related to hospital discharge. He denies questions or concerns. He is aware of follow up appointment and is going to contact cardiology to schedule. Received new medications. ADRIANNA Lieberman
--- NOTE | 2023-12-04 16:52 | P.DS_ITS ---
General Admission date:: 11/28/23 Discharge date: 12/01/23 HPI HPI HPI: Patient presents for evaluation of dyspnea. Patient has a long pulmonary history of COPD and emphysema, previous intermittent evening oxygen, previous lung cancer status post chemoradiation approximately 2 years ago and now with known recurrence who has recently started chemotherapy that is reportedly probable palliative. Patient had a recent admission for respiratory failure and what was thought to possibly be pneumonia although note no definitive infiltrate or organism was isolated. He was discharged on continuous oxygen however. Patient presented to the emergency department on Monday for worsening pulmonary status and no acute process was noted and he improved with treatment in the emergency department so he was discharged home. However patient is continued to decline over the weekend requiring increasing of his oxygen along with every 3 hour to 4-hour nebulizer treatments. Patient presents today and rapidly desaturates down into the 80s off of oxygen. He denies chest pain, fever, chills, hemoptysis, hematochezia, melena, nausea, vomiting, diarrhea but does report a wet cough. He was evaluated in the emergency room and his CTA did not show any evidence of acute thrombus. The ER doctor was concerned with pulmonary edema along with bronchial wall thickening but did not see any discrete infiltrates. His ABG s howed hypercapnia and hypoxemia with a preserved pH. He could not be weaned off of oxygen at all and was admitted for further evaluation and treatment. His states the past few days he has been very confused. He has also been unable to eat. Hospital Course Hospital Course Hospital Course: In the emergency room patient received DuoNebs, Solu-Medrol, and Lasix. He required BiPAP during the night but used nasal O2 at times. Pulmonology was consulted for his hypercapnic respiratory failure. He was seen by Dr. Sosa with the plan to use DuoNebs every 4 hours with Pulmicort every 12 hours scheduled. Patient was to continue with oxygen supplementation to maintain O2 sats with a goal of 90 to 95%. He was started on Levaquin 750 mg pending sputum cultures.He was also seen by cardiology with plan to continue aspirin, metoprolol, and to check echo. Cadiology felt that this was a pulmonary issue with no need for a cardiovascular workup at this time. Patient gradually did improve and was wearing BiPAP intermittently. He felt his shortness of breath had improved. He was sleeping and eating better. He was followed by pulmonology throughout his stay. He was initiated on itraconazole 200 mg twice daily for budding yreast i his sputum. He was to continue with the Levaquin 750 mg daily. On 12/01/2023 patient was stable to be discharged home.See medication reconciliation sheet. MD followups as schdeduled. Exam Data for Last 24 hours Vital signs and Labs for Last 24 Hours: Temp Pulse Resp BP Pulse Ox O2 Del Method O2 Flow Rate 98.4 F 100 H 18 108/76 L 90 L Nasal Cannula 4 12/01/23 16:00 12/01/23 16:00 12/01/23 16:00 12/01/23 16:00 12/01/23 16:00 12/01/23 17:00 12/01/23 17:00 FiO2 35 11/29/23 05:15 Laboratory Results - last 24 hr 11/29/23 10:50: Blastomyces Antibody Negative, Aspergillus flavus Ab Negative, Aspergill fumigatus Ab Negative, Aspergillus niger Ab Negative I & O for Last 24 hours: Intake & Output 12/02/23 12/03/23 12/04/23 12/05/23 11:59 11:59 11:59 11:59 Intake Total 505 / 505 Output Total 450 / 450 Balance 55 / 55 Narrative: Constitutional: Present no acute distress Respiratory: Present wheezes (anterior and posterior); Absent rales Cardiac: Present Reg Rate and Rhythm GI: Present soft and normal bowel sounds; Absent distention or tenderness Extremities: Present edema (trace LE) Skin: Present intact Neuro: Present alert, awake and oriented x 3 Results Data Completed and Pending Completed studies during hospitalization [Text1]: MPRESSION: Interval development of noncalcified pulmonary nodules. Fleischner society criteria do not apply in this patient with presumed malignancy. Suggest follow-up PET-CT, consider tissue sampling. 11/28/2023 CXR IMPRESSION: There is some increased opacity in the lower lung perez which may reflect developing edema. 11/28/2023 Chest CTA IMPRESSION: 1. No central pulmonary arterial filling defect is seen. Subsegmental vessels are not well evaluated due to technical factors. 2. No dense parenchymal consolidation, pleural effusion, or pneumothorax. 3. Stable exam. 4. Findings which suggest underlying pulmonary arterial hypertension. 11/29/2023 ECHO Conclusion Technically difficult study due to poor acoustic windows. Normal LV systolic function. Moderately dilated RV with mild reduction in RV function. Mild TR, mild MO. Elevated RVSP 45-50 mmHg. Trivial pericardial effusion. 11/28/23 16:57: WBC 3.0 L, RBC 4.32 L, Hgb 13.7 L, Hct 43.8, MCV 101.4 H, MCH 31.7 H, MCHC 31.3 L, RDW 16.2, Plt Count 109 L D, MPV 10.1, Neut % (Auto) 58.0, Lymph % (Auto) 24.1, [place] % (Auto) 12.4 H, Eos % (Auto) 3.3, Baso % (Auto) 2.1 H , Neut # (Auto) 1.7 L, Lymph # (Auto) 0.7, [place] # (Auto) 0.4, Eos # (Auto) 0.1, Baso # (Auto) 0.1, Sodium 130 L, Potassium 4.7, Chloride 81 L, Carbon Dioxide 45 H*, Anion Gap 8.7, BUN 13, Creatinine 0.50 L, Estimated Creat Clear 73, Estimated GFR 164, Est GFR ( Amer) 199 D, Glucose 96, Calcium 9.7, Magnesium 1.6, Total Bilirubin 0.7, AST 28, ALT 18, Alkaline Phosphatase 70, Troponin I < 0.01, Total Protein 7.7, Albumin 4.1, Globulin 3.6 H, Albumin/Globulin Ratio 1.1, Procalcitonin 0.052 11/28/23 17:08: Specimen Source Left radial, O2 % 4lpm, ABG pH 7.31 L, ABG pCO2 84.4 H, ABG pO2 55.1 L, ABG HCO3 41.8 H, ABG Total CO2 44.4 H, ABG O2 Saturation 88 L, ABG Base Excess 15.6 H, Collin Test Acceptable 11/28/23 17:18: Chlamy pneumoniae PCR Not detected, Adenovirus (PCR) Not detected, B. pertussis DNA (PCR) Not detected, Coronavirus OC43 (PCR) Not detected, Coronavirus HKU1 (PCR) Not detected, Coronavirus 229E (PCR) Not detected, SARS-CoV-2 (PCR) Not detected, Coronavirus NL63 (PCR) Not detected, Human Metapneumovir PCR Not detected, Influenza A (H1) PCR Not detected, Influ A (H1N1/09) PCR Not detected, Influenza A (H3) PCR Not detected, Influenza Type A (PCR) Not detected, Influenza Type B (PCR) Not detected, M. pneumoniae (PCR) Not detected, Parainfluenza 1 (PCR) Not detected, Parainfluenza 2 (PCR) Not detected, Parainfluenza 3 (PCR) Not detected, Parainfluenza 4 (PCR) Not detected, RSV (PCR) Not detected, Entero/Rhino (PCR) Not detected 11/28/23 19:54: Troponin I < 0.01 11/28/23 22:48: Troponin I < 0.01 11/29/23 05:56: WBC 1.7 L* D, RBC 4.07 L, Hgb 13.0 L, Hct 41.1 L, MCV 101.1 H, MCH 32.0 H, MCHC 31.6 L, RDW 16.3, Plt Count 105 L, MPV 9.8, Neut % (Auto) 81.2 H, Lymph % (Auto) 16.1, [place] % (Auto) 2.2, Eos % (Auto) 0.3, Baso % (Auto) 0.1, Neut # (Auto) 1.4 L, Lymph # (Auto) 0.3 L, [place] # (Auto) 0.0 L, Eos # (Auto) 0.0, Baso # (Auto) 0.0, Sodium 128 L, Potassium 4.7, Chloride 78 L, Carbon Dioxide 40 H, Anion Gap 14.7, BUN 16, Creatinine 0.50 L, Estimated Creat Clear 71, Estimated GFR 164, Est GFR ( Amer) 199, Glucose 142 H D, Calcium 9.4, Troponin I < 0.01 11/29/23 06:00: ABG pH 7.43, ABG pCO2 62.9 H, ABG pO2 56.0 L, ABG HCO3 40.6 H, ABG Total CO2 42.6 H, ABG O2 Saturation 88 L, ABG Base Excess 16.3 H Labs on day of discharge: Labs from last 24 hours 11/29/23 10:50 Blastomyces Antibody Negative Aspergillus flavus Ab Negative Aspergill fumigatus Ab Negative Aspergillus niger Ab Negative DS: Diagnosis Discharge Diagnosis (1) Acute exacerbation of chronic obstructive pulmonary disease: Status: Acute Code(s): J44.1 - Chronic obstructive pulmonary disease with (acute) exacerbation (2) Acute hypercapnic respiratory failure: Status: Acute Code(s): J96.02 - Acute respiratory failure with hypercapnia (3) Acute respiratory failure with hypoxia: Status: Acute Code(s): J96.01 - Acute respiratory failure with hypoxia (4) Pneumonia: Status: Acute Code(s): J18.9 - Pneumonia, unspecified organism Qualifiers: Laterality: bilateral Meds Home Medications and Allergies Home Medications Medication Instructions Recorded Confirmed Type allopurinol 300 mg tablet 300 mg PO DAILY 12/22/17 11/28/23 History lovastatin 40 mg tablet 40 mg PO HS 12/22/17 11/28/23 History aspirin 81 mg tablet,delayed 81 mg PO DAILY 08/24/20 11/28/23 History release levothyroxine 150 mcg tablet 150 mcg PO DAILY 02/02/23 11/28/23 History spironolactone 25 mg tablet 25 mg PO DAILY 05/11/23 11/28/23 History azelastine 137 mcg (0.1 %) nasal 2 spray intranasal HS 90 days #30 09/11/23 11/28/23 Rx spray aerosol mL fluticasone fur. 100 mcg-umeclid 1 inh inhalation DAILY 90 days #90 11/08/23 11/28/23 Rx 62.5 mcg-vilant 25 mcg ea inhalat.powder (Trelegy Ellipta) fluticasone propionate 50 2 spray intranasal DAILY 90 days 11/20/23 11/28/23 Rx mcg/actuation nasal #16 grams spray,suspension (Flonase Allergy Relief) ipratropium 0.5 mg-albuterol 3 mg 3 ml inhalation QIDP PRN shortness 11/22/23 11/28/23 History (2.5 mg base)/3 mL nebulization of breath or wheezing soln metoprolol succinate 25 mg 25 mg PO HS 11/22/23 11/28/23 History tablet,extended release 24 hr itraconazole 100 mg capsule 200 mg (2 x 100 mg) PO BID #56 caps 12/01/23 Rx levofloxacin 750 mg tablet 750 mg PO DAILY #3 tabs 12/01/23 Rx New Prescriptions to Start Prescriptions: itraconazole [place],Sam levofloxacin [place],Sam Allergies Allergy/AdvReac Type Severity Reaction Status Date / Time No Known Drug Allergies Allergy Unknown Unknown Verified 11/20/23 15:11 [NKDA] allergy reaction Discharge Plan Disposition Patient Disposition: Home, Self-Care Condition: Serious Discharge Order Discharge Orders: Discharge Order (Routine); Ordered 12/01/23 Ordered By: Sam Wang Follow up Plan Follow up with: Sam Pedroza PA [Physician Wellness Educator] - 2 weeks Miles Márquez MD [Staff Physician] - 12/06/23 9:30 am Arie Sosa MD [Physician] - 12/13/23 11:00 am Prescriptions/Medication Reconciliation: New levofloxacin 750 mg tablet 750 mg PO DAILY Qty: 3 0RF itraconazole 100 mg Capsule 200 mg PO BID Qty: 56 0RF Continued levothyroxine 150 mcg tablet 150 mcg PO DAILY spironolactone 25 mg tablet 25 mg PO DAILY fluticasone propionate [Flonase Allergy Relief] 50 mcg/actuation spray,suspension 2 spray intranasal DAILY 90 Days Qty: 16 2RF Rx Instructions: administer into each nostril azelastine 137 mcg (0.1 %) aerosol,spray 2 spray intranasal HS 90 Days Qty: 30 2RF Rx Instructions: administer into each nostril Trelegy Ellipta 100-62.5-25 mcg blister with device 1 inh inhalation DAILY 90 Days Qty: 90 3RF ipratropium-albuterol 0.5 mg-3 mg(2.5 mg base)/3 mL solution for nebulization 3 ml IH QIDP PRN (Reason: shortness of breath or wheezing) metoprolol succinate 25 mg tablet extended release 24 hr 25 mg PO HS allopurinol 300 MG tablet 300 mg PO DAILY aspirin 81 mg tablet,delayed release (DR/EC) 81 mg PO DAILY Held lovastatin 40 MG tablet 40 mg PO HS Hold Instructions: Resume on 12/15/23. Discontinued fluconazole [Diflucan] 100 mg tablet 100 mg PO DAILY Qty: 10 0RF Problem Reconciliation Problems Reviewed?: Yes Patient Discharge Instructions ACTIVITY: Limited activity DIET: continue same diet Patient Instructions: DI for Lung Cancer, DI for Shortness of Breath, DI for Respiratory Failure, Hypoxemia Providers Primary Care Provider: Kenji James Admit Provider: Sam Wang Attending Provider: Sam Wang
== END 2023-12-01 18:35 | disposition home or self-care (01) | DRG 189 ==
LOC: ER 18:06 → 2ND 11-29 06:15
PROVIDERS: Internal Medicine Adolescent Medicine; Internal Medicine Pulmonary Disease; Physician Assistant; Admitting Provider Family Medicine; Emergency Provider Emergency Medicine; PCP Family Medicine; Visit Provider Family Medicine
DX: J96.02 Acute respiratory failure with hypercapnia (principal); J18.9 Pneumonia, unspecified organism; C34.90 Malignant neoplasm of unspecified part of unspecified bronchus or lung; I50.32 Chronic diastolic (congestive) heart failure; J44.1 Chronic obstructive pulmonary disease with (acute) exacerbation; J96.11 Chronic respiratory failure with hypoxia; D70.9 Neutropenia, unspecified; Z86.79 Personal history of other diseases of the circulatory system; I48.0 Paroxysmal atrial fibrillation; J43.9 Emphysema, unspecified; E03.9 Hypothyroidism, unspecified; I10 Essential (primary) hypertension; E78.2 Mixed hyperlipidemia; I25.10 Atherosclerotic heart disease of native coronary artery without angina pectoris; Z85.820 Personal history of malignant melanoma of skin; I25.2 Old myocardial infarction; Z86.718 Personal history of other venous thrombosis and embolism; M10.9 Gout, unspecified; I71.40 Abdominal aortic aneurysm, without rupture, unspecified; Z95.0 Presence of cardiac pacemaker; Z95.5 Presence of coronary angioplasty implant and graft; I11.0 Hypertensive heart disease with heart failure; E78.5 Hyperlipidemia, unspecified
CPT/HCPCS: 36415; 71045; 71275; 80048; 80053; 82803; 83735; 84145; 84484; 85025; 86140; 86606; 86612; 87070; 87205; 87220; 87449; 87581; 87632; 87635; 87798; 93005; 93306; 94640; 94660; 94760; 94761; 99285; G0238; J1956; Q9967

== ENCOUNTER 2023-12-06 11:36 | Outpatient (CLI) | payer MEDICARE, MEDICAID, SELFPAY ==
--- NOTE | 2023-12-06 11:48 | US_ITS ---
FINAL REPORT CLINICAL HISTORY: urinary retension FINDINGS: Limited sonographic images of the urinary bladder were obtained. Bladder volume is 867 mL. Postvoid bladder volume is 697 mL. IMPRESSION: Significant postvoid residual. Reviewed, Interpreted and Dictated by Selvin Mitchell MD Transcribed by Chela Georges Authenticated and . [facility]
[2023-12-06 11:53] LABS: Basophils # 0.1 K/mm3 (0-0.2); Basophils % 0.6 % (0.1-2.0); Eosinophils # 0.3 K/mm3 (0.0-0.4); Eosinophils % 3.6 % (0.1-12.0); Hematocrit 38.3 % (42.0-52.0); Hemoglobin 12.3 g/dL (14.1-18.0); Lymphocytes # 0.9 K/mm3 (0.7-4.5); Lymphocytes % 10.9 % (10-50); Mean Corpuscular Volume 99.8 fl (80-94); Mean Platelet Volume 10.2 fl (7.4-10.4); Monocytes # 0.7 K/mm3 (0.1-1.0); Monocytes % 7.9 % (1.7-9.3); Neutrophils # 6.4 K/mm3 (1.8-7.8); Platelet Count 102 K/mm3 (142-424); Red Blood Count 3.84 M/mm3 (4.60-6.20); Red Cell Distribution Width 16.8 % (11.5-17.5); White Blood Count 8.3 K/mm3 (4.8-10.8)
[2023-12-06 11:55] LABS: Chloride 90 mmol/L (98-107); Potassium 4.5 mmoL/L (3.5-5.1); Sodium 131 mmol/L (136-145)
[2023-12-06 11:58] LABS: Anion Gap 9.5 mEq/L (5-15); Blood Urea Nitrogen 15 mg/dl (9-20); Calcium 9.4 mg/dl (8.4-10.2); Carbon Dioxide 36 mmol/L (22.0-30.0); Estimated Glomerular Filt Rate 133 ml/min (>60); GFR (African American) 161 ML/MIN (>60); Glucose 92 mg/dl (74-100)
== END 2023-12-06 23:59 | disposition home or self-care (01) ==
PROVIDERS: PCP Family Medicine; Visit Provider Family Medicine
DX: C34.80 Malignant neoplasm of overlapping sites of unspecified bronchus and lung (principal); C34.90 Malignant neoplasm of unspecified part of unspecified bronchus or lung; R33.9 Retention of urine, unspecified
CPT/HCPCS: 36415; 76857; 80048; 85025

== ENCOUNTER 2023-12-06 12:26 | Emergency (ER) | payer MEDICARE, MEDICAID, SELFPAY ==
[2023-12-06 12:27] VITALS: BP 129/62; PULSE 72; RESP 22; TEMP 36.7; O2SAT 95; BMI 25.5
[2023-12-06 12:35] VITALS: BP 129/62; PULSE 72; O2SAT 99
--- NOTE | 2023-12-06 12:46 | PC.NURSE ---
Dr. Galvan at bedside with POCUS
--- NOTE | 2023-12-06 12:54 | XR_ITS ---
FINAL REPORT CLINICAL HISTORY: constipation/urinary retention FINDINGS: There is a nonspecific, nonobstructive bowel gas pattern. No bowel dilatation is identified. There is no abnormal calcification. There is a large amount of retained stool throughout the colon. IMPRESSION: Large stool burden. Reviewed, Interpreted and Dictated by Selvin Mitchell MD Transcribed by Chela Georges Authenticated and [facility]
--- NOTE | 2023-12-06 12:56 | ED_ITS ---
Discharge Plan Disposition Patient Disposition: Home, Self-Care Prescriptions Prescriptions: New alfuzosin 10 mg tablet extended release 24 hr 10 mg PO DAILY Qty: 14 0RF Rx Instructions: administer after the same meal each day No Action levofloxacin 750 mg tablet 750 mg PO DAILY 14 Days Qty: 14 0RF itraconazole 100 mg capsule 200 mg PO BID Qty: 56 0RF levothyroxine 150 mcg tablet 150 mcg PO DAILY spironolactone 25 mg tablet 25 mg PO DAILY fluticasone propionate [Flonase Allergy Relief] 50 mcg/actuation spray,suspension 2 spray intranasal DAILY 90 Days Qty: 16 2RF Rx Instructions: administer into each nostril azelastine 137 mcg (0.1 %) aerosol,spray 2 spray intranasal HS 90 Days Qty: 30 2RF Rx Instructions: administer into each nostril Trelegy Ellipta 100-62.5-25 mcg blister with device 1 inh inhalation DAILY 90 Days Qty: 90 3RF ipratropium-albuterol 0.5 mg-3 mg(2.5 mg base)/3 mL solution for nebulization 3 ml IH QIDP PRN (Reason: shortness of breath or wheezing) metoprolol succinate 25 mg tablet extended release 24 hr 25 mg PO HS lovastatin 40 MG tablet 40 mg PO HS Hold Instructions: Resume on 12/15/23. allopurinol 300 MG tablet 300 mg PO DAILY aspirin 81 mg tablet,delayed release (DR/EC) 81 mg PO DAILY Referrals Follow up/Referrals: Miles Márquez MD [Primary Care Provider] - See instructions Activity Restrictions/Add. Instructions Additional Instructions/Restrictions: Please follow with your primary care doctor in 5 to 7 days for a voiding trial. Return to the emergency room with any significant worsening of your symptoms. Additionally given the significant constipation which may be the cause of your urinary retention I would recommend that you escalate MiraLAX as discussed. Start off with half a cap twice a day escalating the dose every 3 days by doubling and then staying on the effective dose for at least 2 weeks until your stool is soft on a daily basis. I would recommend you take this medicine indefinitely until you stop by recommendation from your primary care physician. As discussed you may continue to have some watery stool on the front and while the hard stool is softening. Clinical Impressions Clinical Impression: Acute urinary retention, Constipation, Encopresis Instructions Patient Instructions: DI for Urinary Tract Infection (UTI), DI for Urinary Tract Infection in Children Discharge ED Provider: Melva Galvan General Adult HPI General Chief complaint: Urogenital-Male Stated complaint: abnormal US of bladder Time Seen by Provider: 12/06/23 12:41 Mode of Arrival: Family Vehicle Source of Information: Patient, Spouse and Medical Record Limitations: No Limitations Description of Symptoms (Recalled from ER Triage Doc. by RN): Pt c/o difficulty urinating and insufficent bowel movement for 2 wks. Denies any fever, chills, or n/v. States he saw Dr. Márquez this morning d/t having trouble voiding throughout the night and morning. Denies any hx of prostate issues, urinary retention, dysuria, or gross hematuria. He also has concerns for leaking from my bottom . Dr. Márquez set up pt for outpt abd u/s and labs and radiology referred pt to ER d/t large amount of urine retained. History of Present Illness HPI narrative: Patient is a 68-year-old male presenting today with urinary retention. Patient was recently hospital for COPD exacerbation and pneumonia and was at Dr. Márquez's office this morning stating he overall was feeling okay other than decreased bowel movements over the last [address] Márquez that he was having difficulty with having any urine output. He woke up in the melanite and states he had cramping around his butt area and some lower abdominal discomfort but that the sensation to urinate has gone away. Currently denies any significant symptoms. Denies any pain medications new medications back pain etc. he does have a history of metastatic lung cancer. Related Data Home Medications Medication Instructions Recorded Confirmed allopurinol 300 mg tablet 300 mg PO DAILY 12/22/17 11/28/23 lovastatin 40 mg tablet 40 mg PO HS 12/22/17 12/06/23 aspirin 81 mg tablet,delayed 81 mg PO DAILY 08/24/20 12/06/23 release levothyroxine 150 mcg tablet 150 mcg PO DAILY 02/02/23 12/06/23 spironolactone 25 mg tablet 25 mg PO DAILY 05/11/23 12/06/23 ipratropium 0.5 mg-albuterol 3 mg 3 ml inhalation QIDP PRN shortness 11/22/23 12/06/23 (2.5 mg base)/3 mL nebulization of breath or wheezing soln metoprolol succinate 25 mg 25 mg PO HS 11/22/23 12/06/23 tablet,extended release 24 hr Previous Rx's Medication Instructions Recorded azelastine 137 mcg (0.1 %) nasal 2 spray intranasal HS 90 days #30 09/11/23 spray aerosol mL fluticasone fur. 100 mcg-umeclid 1 inh inhalation DAILY 90 days #90 11/08/23 62.5 mcg-vilant 25 mcg ea inhalat.powder (Trelegy Ellipta) fluticasone propionate 50 2 spray intranasal DAILY 90 days 11/20/23 mcg/actuation nasal #16 grams spray,suspension (Flonase Allergy Relief) alfuzosin 10 mg tablet,extended 10 mg PO DAILY #14 tabs 12/06/23 release 24 hr itraconazole 100 mg capsule 200 mg (2 x 100 mg) PO BID #56 caps 12/06/23 levofloxacin 750 mg tablet 750 mg PO DAILY 14 days #14 tabs 12/06/23 Allergies Allergy/AdvReac Type Severity Reaction Status Date / Time No Known Drug Allergies Allergy Unknown Unknown Verified 12/06/23 09:38 [NKDA] allergy reaction [facility] Disclaimer: The information contained in this section may have been updated after the patient was seen, as this information can be updated by other users. Medical History Acute exacerbation of chronic obstructive pulmonary disease Acute hypoxic on chronic hypercapnic respiratory failure COPD (chronic obstructive pulmonary disease) Olecranon bursitis of right elbow History of esophageal dilatation Sinusitis Gynecomastia Discharge from left nipple Urinary tract infection Tobacco abuse disorder Acute respiratory failure with hypoxia Acute hypercapnic respiratory failure Elbow mass Swelling Hilar lymphadenopathy Allergic rhinitis History of lung or bronchial cancer Mediastinal lymphadenopathy PAF (paroxysmal atrial fibrillation) COPD (chronic obstructive pulmonary disease) Dyspnea on exertion Malignant neoplasm of unspecified part of unspecified bronchus or lung Pulmonary emphysema Smoking greater than 30 pack years Lung nodule Tobacco abuse counseling HAP (hospital-acquired pneumonia) Influenza A Acute on chronic respiratory failure with hypoxia and hypercapnia Tobacco abuse AAA (abdominal aortic aneurysm) Melanoma Thyroid disease Sinus problem History of radiation therapy History of chemotherapy Cataract Myocardial infarction Lung disease Pacemaker DVT (deep venous thrombosis) Cancer lung Atherosclerotic heart disease Hypotension HLD (hyperlipidemia) Abnormal EKG CAD (coronary artery disease) CHF (congestive heart failure) Gout Hypertension Hypothyroidism COPD exacerbation Surgical History H/O melanoma excision History of heart artery stent History of cardiac cath History of colonoscopy Family History Other AAA (abdominal aortic aneurysm) Coronary artery disease Gout Heart attack Hypertension Social History Smoking Status: Never smoker alcohol intake: former substance use type: denies use 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ional status: retired and disabled Travel in the last 8 weeks: None household members: spouse housing: house lives independently: No marital status: education level: high school service: No snf: No caffeine: No special honey needs: No agree to transfusion: No do you feel safe at home: Yes victim of physical abuse: No victim of emotional abuse: No victim of sexual abuse: No would you like helpful sources: No ROS Obtained: Yes All systems reviewed & no additional complaints except as documented Physical Exam General General appearance: alert and in no apparent distress Respiratory Respiratory exam: Present normal lung sounds bilaterally Cardiovascular Cardiovascular exam: Present regular rate Neurological Exam Neurological exam: Present alert and oriented X3 Medical Decision Making Lanre Inquiry Pt receiving controlled substance: No Vital Signs: 12/06/23 12:27 12/06/23 12:35 Temperature 98.0 F Temperature Source Oral Pulse Rate 72 Pulse Rate [Right] 72 Respiratory Rate 22 Blood Pressure 129/62 Blood Pressure [Right Arm] 129/62 Blood Pressure Mean [Right Arm] 84 Blood Pressure Source [Right Arm] Automatic Cuff 02 Sat by Pulse Oximetry 95 99 Oxygen Delivery Method Nasal Cannula Room Air Oxygen Flow Rate (LPM) 2.5 Lab Data Lab results reviewed: Yes I reviewed the patient's lab results. Lab Results 12/06/23 13:10: Urine Color Yellow, Urine Appearance Clear, Urine pH 7.0, Ur Specific [place] 1.015, Urine Protein Negative, Urine Glucose (UA) Negative, Urine Ketones Negative, Urine Blood Negative, Urine Nitrate Negative, Urine Bilirubin Negative, Urine Urobilinogen 1.0, Ur Leukocyte Esterase Negative Orders (Tests/Meds): ORDERS Category Date Time Status KUB (single view) [XR KUB] Stat Exams 12/06/23 12:54 Taken POCUS Point of Care (ER Only) Stat Exams 12/06/23 12:47 Completed BMP [Basic Metabolic Panel] Stat Lab 12/06/23 12:54 Ordered CBC w/Auto Diff [Complete Blood Count Auto Diff] Stat Lab 12/06/23 12:54 Ordered UA [Urinalysis and Microscopic] Stat Lab 12/06/23 13:10 Results Medical Decision Narrative: Patient is a 68-year-old male presenting today with acute urinary retention. Has been significantly constipated over the last 2 weeks which is possibly the cause. Additionally has had a low stream of urine in the past is possible he has BPH that is causing this as well. History of metastatic lung cancer with mets to his ribs but he has no history or known evidence of metastatic disease in the spine. Has had recent CT scans of the chest abdomen and pelvis without any demonstration of spinal disease. Additionally denies any significant back pain while spinal compression from metastatic disease is possible the other explanations above are more likely. I did limited bedside ultrasound which did demonstrate a large amount of urine in his bladder no significant hydronephrosis. Will place a Armstrong catheter also will get a KUB to see if there is a significant stool burden. I will reassess after this workup is complete. Labs reviewed from earlier today which were unremarkable specifically normal creatinine. Urinalysis unremarkable for no evidence of urinary tract infection. Patient had almost 900 cc out Armstrong catheter was anchored he was placed on alfuzosin for the next 2 weeks he will follow-up for voiding trial in 5 to 7 days. Had minimal success with enema discussed with him his encopresis as well as escalation of his MiraLAX at home and so he is having soft bowel movements daily. He was discharged in a stable condition. Procedures Miscellaneous Procedure Procedure Performed: Limited renal ultrasound Indication: A focused ultrasound of the kidneys was performed to evaluate for hydronephrosis and nephrolithiasis. The ultrasound was performed with the following indications, as noted in the H&P: Urinary tension Identified structures: [-R kidney - L kidney - Both kidneys] [-Bladder] Findings: Large amount of urine in the bladder no definitive external compressive structures or debris, no evidence of bilateral hydronephrosis Impression: Distended bladder no evidence of hydronephrosis Images were saved to permanent archive The study was technically adequate CPT: 35300-91 This study was performed by me, and I personally interpreted all images/videos. Based on my clinical judgement, these images were adequate and did not necessitate further imaging. Critical Care Critical Care Time Critical Care Time: No
--- NOTE | 2023-12-06 13:16 | PC.NURSE ---
RAD at for CXR
--- NOTE | 2023-12-06 13:17 | PC.NURSE ---
RAD at BS for KUB
[2023-12-06 13:18] LABS: Microscopic, Urine URINE MICROSCOPIC (MICROSCOPIC)
[2023-12-06 13:22] LABS: Appearance,Urine CLEAR (Clear); Bilirubin,Urine Negative (Negative); Blood, Urine Negative (Negative); Color,Urine YELLOW (Yellow); Glucose,Urine (UA) Negative (Negative); Ketones,Urine Negative (Negative); Leukocyte Esterase,Urine Negative (Negative); Nitrate,Urine Negative (Negative); Protein,Urine Negative (Negative); Specific Gravity, Urine 1.015 (1.005-1.030)
--- NOTE | 2023-12-06 14:27 | PC.NURSE ---
pt in restroom letting enema set in felt like something was coming out,will pull red cord when ready for assistance
--- NOTE | 2023-12-06 14:52 | PC.NURSE ---
Dr. Galvan at BS to update pt on POC
[2023-12-06 14:58] VITALS: BP 106/71; PULSE 72; RESP 18; TEMP 36.7; O2SAT 95
[2023-12-06 15:03] LABS: WBC,Urine Occasional #/hpf (0-3)
[2023-12-06 15:04] LABS: Bacteria,Urine Trace /lpf; Squamous Epithelial Cell,Urine Occasional #/hpf (0-5)
== END 2023-12-06 15:04 | disposition home or self-care (01) ==
PROVIDERS: Emergency Provider Student in an Organized Health Care Education/Training Program; PCP Family Medicine
DX: R33.9 Retention of urine, unspecified (principal); K59.00 Constipation, unspecified
CPT/HCPCS: 36415; 51702; 74018; 76857; 80048; 81001; 85025; 99284

== ENCOUNTER 2023-12-09 02:47 | Emergency (ER) | payer MEDICARE, MEDICAID, SELFPAY ==
[2023-12-09 02:50] VITALS: BP 91/50; PULSE 76; RESP 16; TEMP 36.4; O2SAT 95; BMI 25.5
--- NOTE | 2023-12-09 03:32 | ED_ITS ---
Discharge Plan Disposition Patient Disposition: Home, Self-Care Chief Complaint: PAIN Prescriptions Prescriptions: No Action levofloxacin 750 mg tablet 750 mg PO DAILY 14 Days Qty: 14 0RF itraconazole 100 mg capsule 200 mg PO BID Qty: 56 0RF levothyroxine 150 mcg tablet 150 mcg PO DAILY spironolactone 25 mg tablet 25 mg PO DAILY fluticasone propionate [Flonase Allergy Relief] 50 mcg/actuation spray,suspension 2 spray intranasal DAILY 90 Days Qty: 16 2RF Rx Instructions: administer into each nostril azelastine 137 mcg (0.1 %) aerosol,spray 2 spray intranasal HS 90 Days Qty: 30 2RF Rx Instructions: administer into each nostril Trelegy Ellipta 100-62.5-25 mcg blister with device 1 inh inhalation DAILY 90 Days Qty: 90 3RF ipratropium-albuterol 0.5 mg-3 mg(2.5 mg base)/3 mL solution for nebulization 3 ml IH QIDP PRN (Reason: shortness of breath or wheezing) metoprolol succinate 25 mg tablet extended release 24 hr 25 mg PO HS alfuzosin 10 mg tablet extended release 24 hr 10 mg PO DAILY Qty: 14 0RF Rx Instructions: administer after the same meal each day lovastatin 40 MG tablet 40 mg PO HS Hold Instructions: Resume on 12/15/23. allopurinol 300 MG tablet 300 mg PO DAILY aspirin 81 mg tablet,delayed release (DR/EC) 81 mg PO DAILY Referrals Follow up/Referrals: Miles Márquez MD [Primary Care Provider] - See instructions Activity Restrictions/Add. Instructions Additional Instructions/Restrictions: At this time it was felt you are safe to be discharged home. If new or worsening symptoms please do not hesitate to return the emergency department. Please take MiraLAX every day in an attempt to keep your stools soft. For pain please take Tylenol or ibuprofen. Clinical Impressions Clinical Impression: Constipation Discharge ED Provider: Shubham Kapadia General Adult HPI General Chief complaint: PAIN Stated complaint: abd pain, unable to use bathroom, has a cathater Time Seen by Provider: 12/09/23 02:56 Mode of Arrival: Wheelchair Source of Information: Patient and Spouse Limitations: No Limitations Description of Symptoms (Recalled from ER Triage Doc. by RN): Pt arrives with complaints of hemorrhoid pain x 2 days. Pt has used OTC preperation H with no relief. Pt recently discharged from here with pna and hx of stage 4 lung CA. Pt denies any bleeding. States he hasnt had a BM in 3 weeks, taking Miralax and only gets a very small amount out at a time. Pt was sent home with a chung d/t urinary retention. History of Present Illness HPI narrative: Patient is a 68-year-old male with past medical history of lung cancer status post chemoradiation currently pending additional chemo treatment, previous hemorrhoids who presents emergency department for evaluation of constipation. Patient was seen in the emergency department approximately 3 days ago where workup with hematologic labs was nonactionable, urinalysis was not consistent with infection. KUB showed large stool burden and Chung was anchored. Patient was diagnosed with encopresis and urinary retention secondary to that. He underwent enema at bedside with minimal success and was discharged home. He has been unable to have a bowel movement at home and due to that he presents here for continued evaluation with associated rectal pain. Related Data Home Medications Medication Instructions Recorded Confirmed allopurinol 300 mg tablet 300 mg PO DAILY 12/22/17 11/28/23 lovastatin 40 mg tablet 40 mg PO HS 12/22/17 12/06/23 aspirin 81 mg tablet,delayed 81 mg PO DAILY 08/24/20 12/06/23 release levothyroxine 150 mcg tablet 150 mcg PO DAILY 02/02/23 12/06/23 spironolactone 25 mg tablet 25 mg PO DAILY 05/11/23 12/06/23 ipratropium 0.5 mg-albuterol 3 mg 3 ml inhalation QIDP PRN shortness 11/22/23 12/06/23 (2.5 mg base)/3 mL nebulization of breath or wheezing soln metoprolol succinate 25 mg 25 mg PO HS 11/22/23 12/06/23 tablet,extended release 24 hr Previous Rx's Medication Instructions Recorded azelastine 137 mcg (0.1 %) nasal 2 spray intranasal HS 90 days #30 09/11/23 spray aerosol mL fluticasone fur. 100 mcg-umeclid 1 inh inhalation DAILY 90 days #90 11/08/23 62.5 mcg-vilant 25 mcg ea inhalat.powder (Trelegy Ellipta) fluticasone propionate 50 2 spray intranasal DAILY 90 days 11/20/23 mcg/actuation nasal #16 grams spray,suspension (Flonase Allergy Relief) alfuzosin 10 mg tablet,extended 10 mg PO DAILY #14 tabs 12/06/23 release 24 hr itraconazole 100 mg capsule 200 mg (2 x 100 mg) PO BID #56 caps 12/06/23 levofloxacin 750 mg tablet 750 mg PO DAILY 14 days #14 tabs 12/06/23 Allergies Allergy/AdvReac Type Severity Reaction Status Date / Time No Known Drug Allergies Allergy Unknown Unknown Verified 12/06/23 09:38 [NKDA] allergy reaction [facility] Disclaimer: The information contained in this section may have been updated after the patient was seen, as this information can be updated by other users. Medical History Acute exacerbation of chronic obstructive pulmonary disease Acute hypoxic on chronic hypercapnic respiratory failure COPD (chronic obstructive pulmonary disease) Olecranon bursitis of right elbow History of esophageal dilatation Sinusitis Gynecomastia Discharge from left nipple Urinary tract infection Tobacco abuse disorder Acute respiratory failure with hypoxia Acute hypercapnic respiratory failure Elbow mass Swelling Hilar lymphadenopathy Allergic rhinitis History of lung or bronchial cancer Mediastinal lymphadenopathy PAF (paroxysmal atrial fibrillation) COPD (chronic obstructive pulmonary disease) Dyspnea on exertion Malignant neoplasm of unspecified part of unspecified bronchus or lung Pulmonary emphysema Smoking greater than 30 pack years Lung nodule Tobacco abuse counseling HAP (hospital-acquired pneumonia) Influenza A Acute on chronic respiratory failure with hypoxia and hypercapnia Tobacco abuse AAA (abdominal aortic aneurysm) Melanoma Thyroid disease Sinus problem History of radiation therapy History of chemotherapy Cataract Myocardial infarction Lung disease Pacemaker DVT (deep venous thrombosis) Cancer lung Atherosclerotic heart disease Hypotension HLD (hyperlipidemia) Abnormal EKG CAD (coronary artery disease) CHF (congestive heart failure) Gout Hypertension Hypothyroidism COPD exacerbation Surgical History H/O melanoma excision History of heart artery stent History of cardiac cath History of colonoscopy Family History Other AAA (abdominal aortic aneurysm) Coronary artery disease Gout Heart attack Hypertension Social History Smoking Status: Former smoker tobacco type: cigarettes packs per day: 1 alcohol intake: former substance use type: denies use 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ional status: retired and disabled Travel in the last 8 weeks: None household members: spouse housing: house lives independently: No marital status: education level: high school service: No senior living: No caffeine: No special honey needs: No agree to transfusion: No do you feel safe at home: Yes victim of physical abuse: No victim of emotional abuse: No victim of sexual abuse: No would you like helpful sources: No ROS Obtained: Yes Systems reviewed as appropriate & no additional complaints except as documented Physical Exam General General appearance: alert and in no apparent distress Head Head exam: atraumatic and normocephalic Eye Eye exam: Present PERRL ENT ENT exam: Present mucous membranes moist Neck Neck exam: Present normal inspection Chest Chest inspection: Present normal inspection and symmetric chest wall rise Respiratory Respiratory exam: Present normal lung sounds bilaterally; Absent respiratory distress Cardiovascular Cardiovascular exam: Present regular rate and normal rhythm Abdominal Exam Abdominal exam: Present soft; Absent tenderness exam: Present other (Registered Nurse Bone Marrow Transplant present, nonthrombosed external hemorrhoids, some liquid stool present. Large firm stool ball in the rectal vault.) Extremities Exam Extremities exam: Present normal inspection Neurological Exam Neurological exam: Present alert Psychiatric Psychiatric exam: Present normal affect Skin Skin exam: Present warm and dry Medical Decision Making Lanre Inquiry Pt receiving controlled substance: No Vital Signs: 12/09/23 02:50 Temperature 97.6 F Temperature Source Oral Pulse Rate [Left] 76 Respiratory Rate 16 Blood Pressure [Right Arm] 91/50 L Blood Pressure Mean [Right Arm] 63 Blood Pressure Source [Right Arm] Automatic Cuff Blood Pressure Position [Right Arm] Sitting 02 Sat by Pulse Oximetry 95 Oxygen Delivery Method Nasal Cannula Oxygen Flow Rate (LPM) 2 Medical Decision Narrative: In summary patient is a 5-year-old male past medical history described above who presents emergency department for evaluation of constipation. Patient is hemodynamically stable nontoxic-appearing upon arrival, afebrile. Given that patient has firm stool ball in rectal vault patient likely does have encopresis secondary to his stool burden. Chung is anchored and is draining urine. Patient underwent manual disimpaction at bedside with success followed by enema. Given that patient has clear clinical reason for his constipation and successful disimpaction, recent labs which were nonactionable and continued follow-up with his cancer doctor emergent labs and imaging were considered but w ill be deferred at this time. Upon repeat evaluation enema was successful and patient had significant resolution of symptoms. His blood pressure was noted to be soft however upon questioning it is always in this range. He has acceptable mean arterial pressures. Given this patient is appropriate for discharge at this time and was given return precautions. Critical Care Critical Care Time Critical Care Time: No
[2023-12-09 04:26] VITALS: BP 92/67; PULSE 74; RESP 16; TEMP 36.6; O2SAT 99
== END 2023-12-09 04:27 | disposition home or self-care (01) ==
PROVIDERS: Emergency Provider Emergency Medicine; PCP Family Medicine
DX: K59.00 Constipation, unspecified (principal)
CPT/HCPCS: 99283

== ENCOUNTER 2023-12-18 10:43 | Outpatient (CLI) | payer MEDICARE, MEDICAID, SELFPAY | END 2023-12-18 23:59 | disposition home or self-care (01) | LOC: LAB.DROPOF 12-19 10:43 | PROVIDERS: PCP Urology; Visit Provider Urology | DX: R33.8 Other retention of urine (principal) | CPT/HCPCS: 87086 ==

== ENCOUNTER 2024-01-11 10:22 | Outpatient (CLI) | payer MEDICARE, MEDICAID, SELFPAY ==
[2024-01-11 10:29] VITALS: BMI 25.0
[2024-01-11 10:50] LABS: Basophils % 0.3 % (0.1-2.0); Eosinophils # 0.1 K/mm3 (0.0-0.4); Eosinophils % 2.4 % (0.1-12.0); Hematocrit 39.3 % (42.0-52.0); Hemoglobin 13.2 g/dL (14.1-18.0); Lymphocytes # 0.8 K/mm3 (0.7-4.5); Mean Corpuscular HGB Conc 33.6 g/dL (31.8-35.4); Mean Corpuscular Hemoglobin 33.5 pg (27.0-31.2); Mean Corpuscular Volume 99.7 fl (80-94); Mean Platelet Volume 10.2 fl (7.4-10.4); Monocytes # 0.4 K/mm3 (0.1-1.0); Neutrophils # 1.7 K/mm3 (1.8-7.8); Neutrophils % 58.2 % (37.0-80.0); Platelet Count 94 K/mm3 (142-424); Red Blood Count 3.94 M/mm3 (4.60-6.20); Red Cell Distribution Width 16.5 % (11.5-17.5)
[2024-01-11 10:58] LABS: Chloride 91 mmol/L (98-107); Potassium 4.4 mmoL/L (3.5-5.1); Sodium 129 mmol/L (136-145)
[2024-01-11 11:01] LABS: Alanine Aminotransferase 54 U/L (12-78); Alkaline Phosphatase 70 U/L (38-126); Anion Gap 7.4 mEq/L (5-15); Aspartate Amino Transferase 123 U/L (17-59); Bilirubin,Total 0.8 mg/dl (0.2-1.3); Blood Urea Nitrogen 12 mg/dl (9-20); Calcium 9.5 mg/dl (8.4-10.2); Carbon Dioxide 35 mmol/L (22.0-30.0); Creatinine Clearance Estimated 73 mL/min (50-200); Estimated Glomerular Filt Rate 96 ml/min (>60); GFR (African American) 116 ML/MIN (>60); Glucose 93 mg/dl (74-100); Total Protein,Serum 7.2 g/dl (6.3-8.2)
[2024-01-11 11:19] LABS: T4 (Thyroxine) 15.1 ug/dl (5.53-11.0)
[2024-01-11 13:10] LABS: Albumin Level 4.1 g/dl (3.5-5.0); Albumin/Globulin Ratio 1.3 (1.1-1.8); Globulin 3.1 g/dL (1.3-3.2)
[2024-01-11 13:52] LABS: Thyroid Stimulating Hormone 1.33 uIU/mL (0.465-4.68)
== END 2024-01-11 10:45 | disposition home or self-care (01) ==
LOC: INF 10:24
PROVIDERS: PCP Family Medicine; Visit Provider Internal Medicine Medical Oncology
DX: C34.11 Malignant neoplasm of upper lobe, right bronchus or lung (principal); C79.89 Secondary malignant neoplasm of other specified sites; Z79.899 Other long term (current) drug therapy; Z87.891 Personal history of nicotine dependence
CPT/HCPCS: 36415; 80053; 84436; 84443; 85025

== ENCOUNTER 2024-01-15 13:32 | Outpatient (CLI) | payer MEDICARE, MEDICAID, SELFPAY ==
[2024-01-15 13:37] VITALS: BMI 25.0
[2024-01-15 14:16] LABS: Reticulocyte % (Auto) 1.6 % (0.9-3.2)
[2024-01-15 14:21] LABS: Iron 64 ug/dL (49-181)
[2024-01-15 14:59] LABS: Ferritin 207 ng/ml (17.9-464)
--- NOTE | 2024-01-15 15:12 | PC.NURSE ---
1405 Labs drawn as ordered per lab analyst. Patient tolerated well. Patient here for labs only.
[2024-01-15 17:46] LABS: Total Iron Binding Capacity 320 ug/dL (261-462)
[2024-01-15 19:05] LABS: Folate > 20.00 ng/mL
[2024-01-16 14:12] LABS: Haptoglobin 187 mg/dL (32-363)
== END 2024-01-15 23:59 | disposition home or self-care (01) ==
LOC: INF 13:33
PROVIDERS: PCP Family Medicine; Visit Provider Internal Medicine Medical Oncology
DX: C34.11 Malignant neoplasm of upper lobe, right bronchus or lung (principal); C79.89 Secondary malignant neoplasm of other specified sites; Z87.891 Personal history of nicotine dependence; Z79.899 Other long term (current) drug therapy
CPT/HCPCS: 36415; 82607; 82728; 82746; 83010; 83540; 83550; 83615; 85044; 86880

== ENCOUNTER 2024-01-24 10:39 | Outpatient (CLI) | payer MEDICARE, MEDICAID, SELFPAY ==
[2024-01-24 10:44] VITALS: BMI 25.0
[2024-01-24 11:08] LABS: Basophils % 0.8 % (0.1-2.0); Eosinophils # 0.1 K/mm3 (0.0-0.4); Eosinophils % 3.9 % (0.1-12.0); Hematocrit 36.2 % (42.0-52.0); Hemoglobin 11.7 g/dL (14.1-18.0); Lymphocytes # 0.6 K/mm3 (0.7-4.5); Lymphocytes % 26.2 % (10-50); Mean Corpuscular HGB Conc 32.3 g/dL (31.8-35.4); Mean Corpuscular Volume 105.1 fl (80-94); Mean Platelet Volume 9.5 fl (7.4-10.4); Monocytes # 0.2 K/mm3 (0.1-1.0); Monocytes % 10.8 % (1.7-9.3); Neutrophils # 1.3 K/mm3 (1.8-7.8); Neutrophils % 58.3 % (37.0-80.0); Platelet Count 100 K/mm3 (142-424); Red Blood Count 3.45 M/mm3 (4.60-6.20); Red Cell Distribution Width 16.4 % (11.5-17.5); White Blood Count 2.1 K/mm3 (4.8-10.8)
[2024-01-24 11:13] LABS: Chloride 97 mmol/L (98-107); Sodium 135 mmol/L (136-145)
[2024-01-24 11:15] LABS: Blood Urea Nitrogen 9 mg/dl (9-20); Creatinine Clearance Estimated 73 mL/min (50-200); Estimated Glomerular Filt Rate 111 ml/min (>60); GFR (African American) 135 ML/MIN (>60)
[2024-01-24 11:16] LABS: Alanine Aminotransferase 130 U/L (12-78); Albumin Level 3.4 g/dl (3.5-5.0); Albumin/Globulin Ratio 1.2 (1.1-1.8); Alkaline Phosphatase 58 U/L (38-126); Aspartate Amino Transferase 144 U/L (17-59); Bilirubin,Total 0.4 mg/dl (0.2-1.3); Calcium 8.8 mg/dl (8.4-10.2); Carbon Dioxide 38 mmol/L (22.0-30.0); Globulin 2.9 g/dL (1.3-3.2); Glucose 112 mg/dl (74-100); Total Protein,Serum 6.3 g/dl (6.3-8.2)
== END 2024-01-24 10:59 | disposition home or self-care (01) ==
LOC: INF 10:39
PROVIDERS: PCP Family Medicine; Visit Provider Internal Medicine Medical Oncology
DX: C34.11 Malignant neoplasm of upper lobe, right bronchus or lung (principal); C79.89 Secondary malignant neoplasm of other specified sites; Z79.899 Other long term (current) drug therapy; Z87.891 Personal history of nicotine dependence
CPT/HCPCS: 36415; 80053; 85025

== ENCOUNTER 2024-02-02 07:03 | Outpatient (CLI) | payer MEDICARE, MEDICAID, SELFPAY ==
[2024-02-02] VITALS (13 sets, daily range): BP systolic 83–109; BP diastolic 48–62; PULSE 47–82; RESP 16–18; TEMP 36.4–36.6; O2SAT 88–100; BMI 25.5
--- NOTE | 2024-02-02 07:08 | CT_ITS ---
FINAL REPORT CLINICAL HISTORY: CT BONE MARROW BIOPSY LUNG CANCER FINDINGS: CT GUIDED BONE MARROW BIOPSY. HISTORY: lung cancer. ATTENDING PHYSICIAN: Dr. Contreras PHYSICIAN BOY'S ADVISER: Sumeet Mahajan PA-C PROCEDURE: After informed consent was obtained and a timeout was performed, the patient was prepped and draped in usual sterile fashion over the left posterior iliac crest. Utilizing local anesthesia and sterile technique with a bone marrow biopsy system, access to the marrow was obtained. And marrow aspirate and core samples were obtained. The patient received mild procedural sedation. The patient tolerated the procedure well and left the department in good condition. IMPRESSION: Status post CT guided biopsy of the bone marrow without immediate complication. PROCEDURAL SEDATION: 2 mg of IV Versed and 50 mcg of Fentanyl were administered. Continuous vital sign monitoring was used. An RN was present during the sedation process. Overall sedation time was 30 minutes. Films reviewed , interpreted and dictated by Dr. Gaby Contreras. Transcribed by Sumeet Mahajan PA-C. Reviewed, Interpreted and Dictated by Gaby Contreras MD Transcribed by JOSÉ Varghese Authenticated and [facility]
--- NOTE | 2024-02-02 07:13 | CT_ITS ---
FINAL REPORT TECHNIQUE: Oral and IV contrast enhanced exam CLINICAL HISTORY: lung cancer COMPARISON: November 28, 2023 and August 10, 2023 FINDINGS: Abdomen: The gallbladder is unremarkable. Liver shows a hypodense lesion in the liver dome, likely a cyst, unchanged. Remaining solid abdominal organs appear unremarkable. A 40 mm abdominal aortic aneurysm is unchanged. No bowel obstruction or fluid collection is seen. There is mild fecal impaction. Pelvis: The appendix is not visualized. Pelvic bowel loops are unremarkable. Prostate and bladder appear unremarkable. No fluid collection or adenopathy is seen. IMPRESSION: 1. No evidence of metastatic disease. 2. Stable abdominal aortic aneurysm. Authenticated and [facility]
--- NOTE | 2024-02-02 07:13 | CT_ITS ---
FINAL REPORT CLINICAL HISTORY: LUNG CANCER COMPARISON: August 10, 2023 and November 28, 2023 FINDINGS: CT CHEST WITH CONTRAST TECHNIQUE: Axial CT with IV contrast administration. FINDINGS: AP window lymphadenopathy shows improvement. An anterior AP window lymph node measures up to 17 mm, unchanged. A posterior AP window lymph node measures 13 mm, previously 22 mm. There is mild improvement in a right suprahilar lymph node measuring 23 mm, previously 25 mm. Previously noted mildly enlarged prevascular lymph nodes seen on the July 2023 exam have since resolved. There is a new small right pleural effusion. There is no left pleural effusion. There is no pericardial effusion. There is minimal compressive atelectasis in the right lower lobe. A subpleural density in the right upper lobe on image #27 measures 6 mm, probably scarring. Otherwise, the lungs are clear. IMPRESSION: 1. No evidence of metastatic lung disease. 2. Mild improvement in lymphadenopathy. 3. New small right pleural effusion. This study was performed using automated techniques to achieve radiation exposure as low as reasonably achievable Authenticated and [facility]N
[2024-02-02 07:52] LABS: Basophils % 0.9 % (0.1-2.0); Eosinophils # 0.1 K/mm3 (0.0-0.4); Eosinophils % 3.7 % (0.1-12.0); Hematocrit 36.6 % (42.0-52.0); Hemoglobin 12.7 g/dL (14.1-18.0); Lymphocytes # 0.8 K/mm3 (0.7-4.5); Mean Corpuscular HGB Conc 34.8 g/dL (31.8-35.4); Mean Corpuscular Hemoglobin 36.3 pg (27.0-31.2); Mean Corpuscular Volume 104.2 fl (80-94); Mean Platelet Volume 8.9 fl (7.4-10.4); Monocytes # 0.3 K/mm3 (0.1-1.0); Monocytes % 10.2 % (1.7-9.3); Neutrophils # 1.4 K/mm3 (1.8-7.8); Neutrophils % 53.2 % (37.0-80.0); Platelet Count 118 K/mm3 (142-424); Red Blood Count 3.51 M/mm3 (4.60-6.20); Red Cell Distribution Width 15.7 % (11.5-17.5); White Blood Count 2.7 K/mm3 (4.8-10.8)
[2024-02-02 08:03] LABS: Activated Partial Thrombo Time 29.5 seconds (22.8-30.6); INR 0.98 (0.9-1.1)
[2024-02-02] MEDS: HEPARIN SODIUM 5,000 UNIT/ML VIAL 5000 UNIT (10:51)
[2024-02-02] MEDS: LIDOCAINE 1% 20ML MDV 20 ML (10:51)
[2024-02-02] MEDS: BARIUM SULFATE(READI-CAT2);450ML BOTTLE 450 ML PO (11:23)
[2024-02-02] MEDS: IOPAMIDOL-370 (76%);100ML BOTTLE 75 ML IV (11:23)
[2024-02-02] MEDS: SODIUM CHLORIDE 0.9% 10ML SYR (RAD ONLY) 10 ML IV (11:23)
== END 2024-02-02 10:55 | disposition home or self-care (01) ==
LOC: RAD 07:04
PROVIDERS: PCP Family Medicine; Visit Provider Internal Medicine Medical Oncology
DX: C34.91 Malignant neoplasm of unspecified part of right bronchus or lung (principal); Z79.01 Long term (current) use of anticoagulants; Z79.891 Long term (current) use of opiate analgesic; Z79.899 Other long term (current) drug therapy; F17.210 Nicotine dependence, cigarettes, uncomplicated
CPT/HCPCS: 38221; 71260; 74177; 77012; 85025; 85097; 85610; 85730; 88184; 88185; 88300; 88305; 88311; 88313; 88341; 88342; 88360; J1644; J2250; J3010; Q9967

== ENCOUNTER 2024-02-29 08:49 | Outpatient (CLI) | payer MEDICARE, MEDICAID, SELFPAY ==
--- NOTE | 2024-02-29 08:52 | MR_ITS ---
FINAL REPORT CLINICAL HISTORY: pt has lung cancer. brain eval COMPARISON: October 11, 2021 FINDINGS: Multiplanar MR imaging of the brain was performed without and with contrast. Motion artifact is new on many of the images. There is age-appropriate atrophy and mild chronic ischemic/gliotic changes. There is no evidence of intracranial hemorrhage or mass. No abnormal extra-axial fluid collection is seen. The ventricular size is within normal limits. There is no evidence of shift of the midline structures. The posterior fossa and brainstem have an unremarkable appearance. No area of abnormal restricted diffusion is identified. No abnormal contrast enhancement is seen. Normal major vessel vascular flow voids are noted. Mucosal thickening is noted in multiple sinuses. No significant change is seen since the prior examination. IMPRESSION: Mild chronic ischemic/gliotic changes. No acute intracranial abnormality and no evidence of intracranial metastatic disease. Authenticated and ERN
[2024-02-29 09:15] LABS: Eosinophils # 0.1 K/mm3 (0.0-0.4); Hematocrit 34.8 % (42.0-52.0); Hemoglobin 12.6 g/dL (14.1-18.0); Lymphocytes # 0.9 K/mm3 (0.7-4.5); Lymphocytes % 33.9 % (10-50); Mean Corpuscular HGB Conc 36.1 g/dL (31.8-35.4); Mean Corpuscular Hemoglobin 37.3 pg (27.0-31.2); Mean Corpuscular Volume 103.2 fl (80-94); Mean Platelet Volume 8.5 fl (7.4-10.4); Monocytes # 0.2 K/mm3 (0.1-1.0); Monocytes % 8.8 % (1.7-9.3); Neutrophils # 1.3 K/mm3 (1.8-7.8); Neutrophils % 51.4 % (37.0-80.0); Platelet Count 94 K/mm3 (142-424); Red Blood Count 3.37 M/mm3 (4.60-6.20); Red Cell Distribution Width 14.7 % (11.5-17.5); White Blood Count 2.6 K/mm3 (4.8-10.8)
[2024-02-29 09:28] LABS: Albumin Level 3.5 g/dl (3.5-5.0); Chloride 94 mmol/L (98-107); Potassium 4.1 mmoL/L (3.5-5.1); Sodium 131 mmol/L (136-145)
[2024-02-29 09:31] LABS: Alanine Aminotransferase 13 U/L (12-78); Albumin/Globulin Ratio 1.2 (1.1-1.8); Alkaline Phosphatase 60 U/L (38-126); Anion Gap 5.1 mEq/L (5-15); Aspartate Amino Transferase 24 U/L (17-59); Bilirubin,Total 0.8 mg/dl (0.2-1.3); Blood Urea Nitrogen 7 mg/dl (9-20); Carbon Dioxide 36 mmol/L (22.0-30.0); Estimated Glomerular Filt Rate 133 ml/min (>60); GFR (African American) 161 ML/MIN (>60); Globulin 2.9 g/dL (1.3-3.2); Total Protein,Serum 6.4 g/dl (6.3-8.2)
[2024-02-29 09:32] LABS: Calcium 8.5 mg/dl (8.4-10.2); Glucose 84 mg/dl (74-100)
[2024-02-29] MEDS: SODIUM CHLORIDE 0.9% 10ML SYR (RAD ONLY) 10 ML IV (09:48)
[2024-02-29] MEDS: GADOTERIDOL INJ 20ML SYRINGE 16 ML IV (09:48)
== END 2024-02-29 23:59 | disposition home or self-care (01) ==
LOC: RAD 08:49
PROVIDERS: PCP Family Medicine; Visit Provider Internal Medicine Medical Oncology
DX: C34.90 Malignant neoplasm of unspecified part of unspecified bronchus or lung (principal)
CPT/HCPCS: 36415; 70553; 80053; 85025; A9576

== ENCOUNTER 2024-03-08 17:02 | Inpatient (IN) | payer MEDICARE, MEDICAID, SELFPAY ==
[2024-03-08] VITALS (10 sets, daily range): BP systolic 102–120; BP diastolic 47–62; PULSE 69–97; RESP 14–24; TEMP 36.6–36.9; O2SAT 94–99; BMI 25.7
--- NOTE | 2024-03-08 17:09 | XR_ITS ---
PROCEDURE INFORMATION: Exam: XR Chest Exam date and time: 03/08/2024 6:10 PM Age: 68 years old Clinical indication: Tachypnea; Additional info: Tachycardia TECHNIQUE: Imaging protocol: Radiologic exam of the chest. Views: 1 view. COMPARISON: CT CHEST W CON 02/02/2024 11:08 FINDINGS: Lungs: Bibasilar opacities. Mild scarring and atelectasis in the lower lungs. Pleural spaces: Right pleural effusion. Heart/Mediastinum: Unremarkable. No cardiomegaly. Vasculature: Vascular calcifications. Bones/joints: Unremarkable. IMPRESSION: 1. Bibasilar opacities. In correlation with CT, this correlates with chronic scarring and atelectasis. 2. Right pleural effusion.
--- NOTE | 2024-03-08 17:11 | CT_ITS ---
PROCEDURE INFORMATION: Exam: CTA Chest With Contrast Exam date and time: 03/08/2024 6:13 PM Age: 68 years old Clinical indication: Tachypnea; Additional info: Tachycardia, malignancy TECHNIQUE: Imaging protocol: Computed tomographic angiography of the chest with contrast. Exam focused on the arteries. 3D rendering (Not supervised by radiologist): MIP and/or 3D reconstructed images were created by the technologist. Radiation optimization: All CT scans at this facility use at least one of these dose optimization techniques: automated exposure control; mA and/or kV adjustment per patient size (includes targeted exams where dose is matched to clinical indication); or iterative reconstruction. Contrast material: ISOVUE 370; Contrast volume: 85 ml; Contrast route: INTRAVENOUS (IV); COMPARISON: CT ANGIO CHEST PE PROTOCOL 28/11/2023 17:43 FINDINGS: Pulmonary arteries: No pulmonary emboli. Enlarged pulmonary arteries likely represent chronic pulmonary arterial hypertension. Aorta: The aorta demonstrates severe atherosclerotic disease. Celiac trunk and mesenteric arteries: Moderate chronic SMA stenosis. Lungs: Multiple nonspecific pulmonary nodules. For follow-up purposes, examples include: 8 mm left lower lobe nodule image 270 series 8 is likely new, 6 mm right upper lobe nodule image 139 series 8 previously 4 mm, partially cavitary 7 mm right upper lobe nodule previously 3 mm. [id number] centrilobular emphysema. Mild scarring and atelectasis in the lower lungs. Secretions in the mainstem bronchi. Pleural spaces: Small to moderate-sized right pleural effusion, new compared to prior study. Heart: Aortic valve calcifications. Coronary arteries: Severe coronary arterial calcification, indicating the presence of coronary artery disease. Lymph nodes: Unremarkable. No enlarged lymph nodes. Liver: Low attenuation hepatic lesions measuring up to 10 mm in diameter are incompletely characterized, but are likely cysts. No followup imaging is recommended. Pancreas: Moderate pancreatic atrophy. Bones/joints: Unremarkable. No acute fracture. Soft tissues: Bilateral gynecomastia. Other findings: Stigmata of old granulomatous disease. IMPRESSION: 1. No pulmonary emboli. 2. Scattered pulmonary nodules that are either new or enlarging. This is worrisome for progressive metastatic disease. 3. Small to moderate-sized right pleural effusion, new compared to prior study. This could be malignant. 4. Severe coronary arterial calcification, indicating the presence of coronary artery disease. If the patient has associated symptoms, recommend management as per chest pain guidelines. If the patient is asymptomatic, consider reviewing modifiable cardiovascular risk factors and managing as per guidelines for primary prevention.
--- NOTE | 2024-03-08 17:16 | ECG_ITS ---
APPROVED REPORT Exam: Resting ECG HR:89 bpm ECG Measurements Heart Rate 89 AXES QRSd 109 QRS 269 QT 346 T 47 QTc 393 Conclusion A-fib Right bundle branch block Right axis deviation Electronically signed by : ABDI LYON, 03/08/2024 23:23:09
[2024-03-08] MEDS: ASPIRIN 81MG CHEWABLE TABLET 324 MG PO (17:28)
[2024-03-08 17:32] LABS: Basophils % 0.7 % (0.1-2.0); Eosinophils % 1.1 % (0.1-12.0); Hematocrit 39.3 % (42.0-52.0); Hemoglobin 11.9 g/dL (14.1-18.0); Lymphocytes # 0.8 K/mm3 (0.7-4.5); Lymphocytes % 28.8 % (10-50); Mean Corpuscular HGB Conc 30.3 g/dL (31.8-35.4); Mean Corpuscular Hemoglobin 31.5 pg (27.0-31.2); Mean Platelet Volume 10.3 fl (7.4-10.4); Monocytes # 0.3 K/mm3 (0.1-1.0); Monocytes % 9.4 % (1.7-9.3); Neutrophils # 1.6 K/mm3 (1.8-7.8); Platelet Count 90 K/mm3 (142-424); Red Blood Count 3.78 M/mm3 (4.60-6.20); Red Cell Distribution Width 14.4 % (11.5-17.5); White Blood Count 2.7 K/mm3 (4.8-10.8)
[2024-03-08 17:41] LABS: Activated Partial Thrombo Time 24.8 seconds (22.8-30.6); INR 1.02 (0.9-1.1); Prothrombin Time 11.4 seconds (10.1-12.5)
[2024-03-08 17:45] LABS: Chloride 100 mmol/L (98-107)
[2024-03-08 17:46] LABS: Albumin Level 3.5 g/dl (3.5-5.0); Potassium 3.4 mmoL/L (3.5-5.1); Sodium 138 mmol/L (136-145)
--- NOTE | 2024-03-08 17:47 | ED_ITS ---
Discharge Plan Disposition Patient Disposition: Admitted Chief Complaint: Arrhythmia/Palpitations Prescriptions Prescriptions: No Action fluticasone propionate [Flonase Allergy Relief] 50 mcg/actuation spray,suspension 2 spray intranasal DAILY 90 Days Qty: 16 2RF Rx Instructions: administer into each nostril azelastine 137 mcg (0.1 %) aerosol,spray 2 spray intranasal HS 90 Days Qty: 30 2RF Rx Instructions: administer into each nostril levothyroxine 150 mcg tablet 150 mcg PO DAILY Qty: 90 1RF alfuzosin 10 mg tablet extended release 24 hr 10 mg PO DAILY 90 Days Qty: 90 1RF Rx Instructions: administer after the same meal each day Trelegy Ellipta 100-62.5-25 mcg blister with device 1 inh inhalation DAILY 90 Days Qty: 90 3RF lovastatin 40 mg tablet 40 mg PO HS 30 Days Qty: 30 2RF allopurinol 300 mg tablet 300 mg PO DAILY 90 Days Qty: 90 0RF ipratropium-albuterol 0.5 mg-3 mg(2.5 mg base)/3 mL solution for nebulization 3 ml IH QIDP PRN (Reason: shortness of breath or wheezing) metoprolol succinate 25 mg tablet extended release 24 hr 25 mg PO HS aspirin 81 mg tablet,delayed release (DR/EC) 81 mg PO DAILY Referrals Follow up/Referrals: Miles Márquez MD [Primary Care Provider] - See instructions Clinical Impressions Clinical Impression: CHF exacerbation, Acute on chronic respiratory failure with hypoxemia Print Language Print Language: Palestinian Discharge ED Provider: Francisco Alonzo General Adult HPI General Chief complaint: Arrhythmia/Palpitations Stated complaint: Rapid Heart Rate Time Seen by Provider: 03/08/24 17:09 Mode of Arrival: Ambulatory Source of Information: Patient Limitations: No Limitations Description of Symptoms (Recalled from ER Triage Doc. by RN): pt presents to er for palpitations, states it started yesterday around 3pm then started today again around lunch, hx of cancer in lungs, kidney, neck, ribs, and lymph nodes, dx 3 years ago, radiation 1 year ago, chemo in september 2023, was recently put on predisone 10mg monday, denies cp, sob History of Present Illness HPI narrative: Please note that above description of symptoms, in this electronic medical record under categorization of recalled from ER triage doctor by RN are reflective of an initial nursing assessment, however, is not reflective of my full history and physical exam that was personally taken and clarified. Consequentially, this preceding description of symptoms, which may include the patient's categorized chief complaint in the EMR, do not reflect my personal clinical impression, and the ultimate description of history of present illness and patient stated complaints should be deferred to this section of the note. Unless stated otherwise or congruent with this section of the note, additional signs, symptoms, or incongruence should be interpreted as inaccurate with my clinical impression. Related Data Home Medications ?Medication ?Instructions ?Recorded ?Confirmed aspirin 81 mg tablet,delayed 81 mg PO DAILY 08/24/20 02/15/24 release ipratropium 0.5 mg-albuterol 3 mg 3 ml inhalation QIDP PRN shortness 11/22/23 02/15/24 (2.5 mg base)/3 mL nebulization of breath or wheezing soln metoprolol succinate 25 mg 25 mg PO HS 11/22/23 02/15/24 tablet,extended release 24 hr Previous Rx's ?Medication ?Instructions ?Recorded azelastine 137 mcg (0.1 %) nasal 2 spray intranasal HS 90 days #30 09/11/23 spray mL fluticasone fur. 100 mcg-umeclid 1 inh inhalation DAILY 90 days #90 11/08/23 62.5 mcg-vilant 25 mcg ea inhalat.powder (Trelegy Ellipta) fluticasone propionate 50 2 spray intranasal DAILY 90 days 11/20/23 mcg/actuation nasal #16 grams spray,suspension (Flonase Allergy Relief) levothyroxine 150 mcg tablet 150 mcg PO DAILY #90 tabs 12/12/23 alfuzosin 10 mg tablet,extended 10 mg PO DAILY 90 days #90 tabs 12/25/23 release 24 hr lovastatin 40 mg tablet 40 mg PO HS 30 days #30 tabs 12/26/23 allopurinol 300 mg tablet 300 mg PO DAILY 90 days #90 tabs 02/01/24 Allergies Allergy/AdvReac Type Severity Reaction Status Date / Time No Known Drug Allergies Allergy Unknown Unknown Verified 02/15/24 10:57 [NKDA] allergy reaction PFSH PFS Disclaimer: The information contained in this section may have been updated after the patient was seen, as this information can be updated by other users. Medical History Acute exacerbation of chronic obstructive pulmonary disease Acute hypoxic on chronic hypercapnic respiratory failure COPD (chronic obstructive pulmonary disease) Olecranon bursitis of right elbow History of esophageal dilatation Sinusitis Gynecomastia Discharge from left nipple Urinary tract infection Tobacco abuse disorder Acute respiratory failure with hypoxia Acute hypercapnic respiratory failure Elbow mass Swelling Hilar lymphadenopathy Allergic rhinitis History of lung or bronchial cancer Mediastinal lymphadenopathy PAF (paroxysmal atrial fibrillation) COPD (chronic obstructive pulmonary disease) Dyspnea on exertion Malignant neoplasm of unspecified part of unspecified bronchus or lung Pulmonary emphysema Smoking greater than 30 pack years Lung nodule Tobacco abuse counseling HAP (hospital-acquired pneumonia) Influenza A Acute on chronic respiratory failure with hypoxia and hypercapnia Tobacco abuse AAA (abdominal aortic aneurysm) Melanoma Thyroid disease Sinus problem History of radiation therapy History of chemotherapy Cataract Myocardial infarction Lung disease Pacemaker DVT (deep venous thrombosis) Cancer lung Atherosclerotic heart disease Hypotension HLD (hyperlipidemia) Abnormal EKG CAD (coronary artery disease) CHF (congestive heart failure) Gout Hypertension Hypothyroidism COPD exacerbation Surgical History H/O melanoma excision History of heart artery stent History of cardiac cath History of colonoscopy Family History Other AAA (abdominal aortic aneurysm) Coronary artery disease Gout Heart attack Hypertension Social History Smoking Status: Current every day smoker tobacco type: cigarettes packs per day: 1 alcohol intake: former substance use type: denies use 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ional status: retired and disabled Travel in the last 8 weeks: None household members: spouse housing: house lives independently: No marital status: education level: high school service: No half-way: No caffeine: No special honey needs: No agree to transfusion: No do you feel safe at home: Yes victim of physical abuse: No victim of emotional abuse: No victim of sexual abuse: No would you like helpful sources: No ROS Obtained: Yes All systems reviewed & no additional complaints except as documented Physical Exam General General appearance: alert Head Head exam: atraumatic and normocephalic Eye Eye exam: Present normal appearance, PERRL and EOMI Neck Neck exam: Present normal inspection, full ROM and trachea midline Respiratory Respiratory exam: Absent respiratory distress, wheezes, stridor, accessory muscle use or prolonged expiratory phase Cardiovascular Cardiovascular exam: Present other (Pulses equal symmetric in upper and lower extremities) Abdominal Exam Abdominal exam: Present soft; Absent distention, tenderness or pulsatile mass Extremities Exam Extremities exam: Absent edema Neurological Exam Neurological exam: Present alert, oriented X3 and CN II-XII intact; Absent motor sensory deficit Skin Skin exam: Present warm and dry; Absent diaphoresis or erythema Medical Decision Making Medical Records Medical records reviewed: Yes I reviewed the patient's medical records. Lanre Inquiry Pt receiving controlled substance: No Lanre was queried for this patient: No Vital Signs: 03/08/24 17:03 03/08/24 17:11 03/08/24 17:30 Temperature 98.4 F Temperature Source Oral Pulse Rate 97 H 93 H Pulse Rate [Right Radial] 95 H Respiratory Rate 20 14 20 Blood Pressure 102/47 L 104/53 L Blood Pressure [Right Arm] 102/47 L Blood Pressure Mean 59 70 Blood Pressure Mean [Right Arm] 65 Blood Pressure Source [Right Arm] Automatic Cuff Blood Pressure Position [Right Arm] Sitting 02 Sat by Pulse Oximetry 97 94 L 97 Oxygen Delivery Method Nasal Cannula Oxygen Flow Rate (LPM) 2 03/08/24 18:00 03/08/24 18:30 Temperature Temperature Source Pulse Rate 89 91 H Pulse Rate [Right Radial] Respiratory Rate 24 20 Blood Pressure 113/62 110/59 L Blood Pressure [Right Arm] Blood Pressure Mean Blood Pressure Mean [Right Arm] Blood Pressure Source [Right Arm] Blood Pressure Position [Right Arm] 02 Sat by Pulse Oximetry 95 98 Oxygen Delivery Method Room Air Nasal Cannula Oxygen Flow Rate (LPM) Lab Data Lab Results 03/08/24 17:24: WBC 2.7 L, RBC 3.78 L, Hgb 11.9 L, Hct 39.3 L, MCV 104.0 H, MCH 31.5 H, MCHC 30.3 L, RDW 14.4, Plt Count 90 L, MPV 10.3, Neut % (Auto) 60.0, Lymph % (Auto) 28.8, Wright % (Auto) 9.4 H, Eos % (Auto) 1.1, Baso % (Auto) 0.7, N eut # (Auto) 1.6 L, Lymph # (Auto) 0.8, Wright # (Auto) 0.3, Eos # (Auto) 0.0, Baso # (Auto) 0.0, PT 11.4, INR 1.02, APTT 24.8, D-Dimer 2.40 H, Sodium 138, P otassium 3.4 L, Chloride 100, Carbon Dioxide 36 H, Anion Gap 5.4, BUN 14, C reatinine 0.60 L, Estimated Creat Clear 75, Estimated GFR 133, Est GFR ( Amer) 161, Glucose 188 H, Calcium 8.8, Magnesium 1.6, Total Bilirubin 0.4, AST 69 H, ALT 47, Alkaline Phosphatase 64, Troponin I < 0.01, NT-Pro-B Natriuret Pep 4430 H, Total Protein 6.1 L, Albumin 3.5, Globulin 2.6, Albumin/Globulin Ratio 1.3, Lipase 27, TSH 0.48, Thyroxine (T4) 17.1 H 03/08/24 17:31: Lactate 2.4 H 03/08/24 17:24 03/08/24 17:24 Orders (Tests/Meds): ED MEDICATIONS Generic Name Dose Route Start Last Admin Trade Name Freq PRN Reason Stop Dose Admin Sodium Chloride 10 ml 03/08/24 18:10 03/08/24 18:12 Sodium Chloride 0.9% 10ml Syr (Rad Only) IV 04/07/24 18:09 10 ml NEEDED PRN Administration Maintain IV Site Discontinued Medications Generic Name Dose Route Start Last Admin Trade Name Freq PRN Reason Stop Dose Admin Aspirin 324 mg 03/08/24 17:09 03/08/24 17:28 Aspirin 81mg Chewable Tablet PO 03/08/24 17:10 324 mg ONCE ONE Administration Furosemide 40 mg 03/08/24 19:09 03/08/24 19:24 Furosemide 40mg/4ml Vial IV 03/08/24 19:10 40 mg ONCE ONE Administration Iopamidol 85 ml 03/08/24 18:10 03/08/24 18:12 Iopamidol-370 (76%);100ml Bottle IV 03/08/24 18:11 85 ml ONCE ONE Administration Sodium Chloride 50 ml 03/08/24 18:10 03/08/24 18:12 0.9 % Sodium Chloride 50 Ml Vial IV 03/08/24 18:11 50 ml ONCE ONE Administration ORDERS Category Date Time Status CT angio chest PE protocol Stat Cat Scan 03/08/24 17:11 Completed XR chest portable Stat Exams 03/08/24 17:09 Completed Complete Blood Count Auto Diff Stat Lab 03/08/24 17:24 Completed Comprehensive Metabolic Panel Stat Lab 03/08/24 17:24 Completed D-Dimer Stat Lab 03/08/24 17:24 Completed Lactic Acid Stat Lab 03/08/24 17:31 Completed Lipase Stat Lab 03/08/24 17:24 Completed Magnesium Stat Lab 03/08/24 17:24 Completed NT Pro Brain Natriuretic Pep. Stat Lab 03/08/24 17:24 Completed PT INR [Prothrombin Time INR] Stat Lab 03/08/24 17:24 Completed PTT [Activated Partial Thrombo Time] Stat Lab 03/08/24 17:24 Completed T4 (Thyroxine) Stat Lab 03/08/24 17:24 Completed TSH [Thyroid Stimulating Hormone] Stat Lab 03/08/24 17:24 Completed Troponin I Q3H Lab 03/08/24 20:15 Ordered Troponin I Q3H Lab 03/08/24 23:15 Ordered Troponin I Stat Lab 03/08/24 17:24 Completed HEART Score History (anamnesis): Slightly suspicious ECG: Non-specific disturbance Age: >65 years Risk factors: 3 or more risk factors Troponin: </= normal limit HEART Score: 5 Medical Decision Narrative: 68-year-old male history of hypertension, hyperlipidemia, CAD status post stenting, AAA, COPD on 2.5 L nasal cannula, stage IV lung cancer presenting with shortness of breath. Patient states he has been progressively short of breath over the last few days. Worse with exertion, better with rest, not necessarily positional. Patient states that when he gets to walking, his oxygen drops, his heart rate goes up to the 140s and 150s, gets better when resting, no chest pain, vomiting, fevers, chills, cough, or any other concern. History was obtained via conversation with patient and . On arrival, patient hemodynamically stable, alert, oriented x4, appropriate, GCS 15, moving all extremities spontaneously, pupils equal and reactive to light. Full physical exam performed and significant for very well-appearing male who is in no acute distress. 3 L nasal cannula to saturate right around 91%. Lungs are clear to auscultation anterior and posterior bilaterally without focal breath sounds. Cardiac exam within normal limits other than mild lower extremity 1+ pitting edema. Differential includes CHF, COPD exacerbation, pneumonia, ACS, [place], among others. Patient placed on continuous cardiac monitoring and continuous pulse ox with initial blood pressure 102/40, heart rate 95, saturation 97% on 2 L nasal cannula. Independent interpretation of EKG shows A-fib with right bundle branch block. Right axis deviation. QRS 109, QTc 393. Patient was given 40 mg IV Lasix for symptomatic management and correction of underlying abnormalities. Workup independently interpreted and significant for right-sided pleural effusion, no overt edema on chest x-ray. Patient does have elevated BNP. Pancytopenia, likely secondary to malignancy treatment. Kidney function stable.. On independent interpretation of imaging, no acute pulmonary embolus on CT PE. See radiology read for full review of final results. Heart score 5. On reevaluation, patient still resting at baseline requiring 3 L nasal cannula. Given patient presentation, workup, history, this most likely represents CHF exacerbation. Because patient high risk for clinical decompensation, deemed appropriate for inpatient admission. Results were relayed to patient who voiced understanding and patient was agreeable to inpatient admission and management. Patient was admitted to the hospital for further definitive management. 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 Electronic on site wastewater systems technician of the spoken language may permit errors. Although I have reviewed the note, some errors may still exist. Critical Care Critical Care Time Critical Care Time: Yes (CV, resp) Attestation: On 03/08/24, the high probability of a clinically significant, sudden or life threatening deterioration of the following system(s) required my full and direct attention, intervention and personal management. The time I documented below is in addition to time spent performing reported procedures but includes the following listed in this critical care notation. Total Time Total Critical Care Time: 45
[2024-03-08 17:49] LABS: Alanine Aminotransferase 47 U/L (12-78); Albumin/Globulin Ratio 1.3 (1.1-1.8); Alkaline Phosphatase 64 U/L (38-126); Anion Gap 5.4 mEq/L (5-15); Aspartate Amino Transferase 69 U/L (17-59); Bilirubin,Total 0.4 mg/dl (0.2-1.3); Blood Urea Nitrogen 14 mg/dl (9-20); Calcium 8.8 mg/dl (8.4-10.2); Carbon Dioxide 36 mmol/L (22.0-30.0); Creatinine Clearance Estimated 75 mL/min (50-200); Estimated Glomerular Filt Rate 133 ml/min (>60); GFR (African American) 161 ML/MIN (>60); Globulin 2.6 g/dL (1.3-3.2); Glucose 188 mg/dl (74-100); Lipase 27 U/L (23-300); Total Protein,Serum 6.1 g/dl (6.3-8.2)
[2024-03-08 17:50] LABS: Magnesium 1.6 mg/dl (1.6-2.3)
[2024-03-08 17:59] LABS: NT Pro Brain Natriuretic Pep. 4430 pg/mL (0-125)
[2024-03-08 18:05] LABS: Lactic Acid 2.4 mmol/L (0.7-2.1)
[2024-03-08 18:05] LABS: Troponin I < 0.01 ng/ml (0.00-0.034)
[2024-03-08 18:07] LABS: T4 (Thyroxine) 17.1 ug/dl (5.53-11.0)
[2024-03-08] MEDS: IOPAMIDOL-370 (76%);100ML BOTTLE 85 ML IV (18:12)
[2024-03-08] MEDS: 0.9 % SODIUM CHLORIDE 50 ML VIAL IV (18:12)
[2024-03-08] MEDS: SODIUM CHLORIDE 0.9% 10ML SYR (RAD ONLY) 10 ML IV (18:12)
[2024-03-08 18:20] LABS: Thyroid Stimulating Hormone 0.48 uIU/mL (0.465-4.68)
[2024-03-08] MEDS: FUROSEMIDE 40MG/4ML VIAL 40 MG IV (19:24)
--- NOTE | 2024-03-08 20:09 | PC.NURSE ---
drafting supervisor informed of patient admission and bed request
--- NOTE | 2024-03-08 20:15 | EXP.HP ---
History of Present Illness *Admission Date: 03/08/24 *Reason for visit:: SOB *History of present illness: This is a 68-year-old male PMHx of hypertension, hyperlipidemia, CAD status post stenting, AAA, COPD on 2.5 L nasal cannula, stage IV lung cancer s/p chemo and radiation presenting with shortness of breath. Patient states he has been progressively short of breath over the last few days. Worse with exertion, better with rest, not necessarily positional. Patient states that when he gets to walking, his oxygen drops, his heart rate goes up to the 140s and 150s, gets better when resting, no chest pain, vomiting, fevers, chills, cough, or any other concern. Admitted for further treatment. [facility] Disclaimer: The information contained in this section may have been updated after the patient was seen, as this information can be updated by other users. Medical History (Updated 03/11/24 @ 12:12 by Arie Sosa MD) Pleural effusion on right Acute respiratory failure with hypoxia Acute hypercapnic respiratory failure Acute exacerbation of chronic obstructive pulmonary disease Acute hypoxic on chronic hypercapnic respiratory failure COPD (chronic obstructive pulmonary disease) Olecranon bursitis of right elbow Elbow mass Swelling Hilar lymphadenopathy Allergic rhinitis History of lung or bronchial cancer Mediastinal lymphadenopathy History of esophageal dilatation Sinusitis Gynecomastia Discharge from left nipple PAF (paroxysmal atrial fibrillation) COPD (chronic obstructive pulmonary disease) Dyspnea on exertion Malignant neoplasm of unspecified part of unspecified bronchus or lung Pulmonary emphysema Smoking greater than 30 pack years Lung nodule Tobacco abuse counseling HAP (hospital-acquired pneumonia) Influenza A Acute on chronic respiratory failure with hypoxia and hypercapnia Urinary tract infection Tobacco abuse AAA (abdominal aortic aneurysm) Melanoma Thyroid disease Sinus problem History of radiation therapy History of chemotherapy Cataract Myocardial infarction Lung disease DVT (deep venous thrombosis) Cancer Atherosclerotic heart disease Hypotension HLD (hyperlipidemia) Abnormal EKG CAD (coronary artery disease) CHF (congestive heart failure) Gout Tobacco abuse disorder Hypertension Hypothyroidism COPD exacerbation Surgical History H/O melanoma excision History of heart artery stent History of cardiac cath History of colonoscopy Family History Other AAA (abdominal aortic aneurysm) Coronary artery disease Gout Heart attack Hypertension Social History (Reviewed 02/15/24 @ 10:57 by BALAJI Aguilar Smoking Status: Current every day smoker tobacco type: cigarettes packs per day: 1 alcohol intake: former substance use type: denies use 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ional status: retired and disabled Travel in the last 8 weeks: None household members: spouse housing: house lives independently: No marital status: education level: high school service: No long-term: No caffeine: No special honey needs: No agree to transfusion: No do you feel safe at home: Yes victim of physical abuse: No victim of emotional abuse: No victim of sexual abuse: No would you like helpful sources: No Review of Systems Constitutional Constitutional: Denies headache(s) and Reports weakness Eyes Eyes: Denies loss of vision ENT Ears, Nose, Mouth, and Throat: Denies headache(s) and Reports vertigo *Cardiovascular Cardiovascular: Denies chest pain and Reports dyspnea *Respiratory Respiratory: Denies cough and Reports dyspnea *Gastrointestinal Gastrointestinal: Denies change in stool character, Denies nausea and Denies vomiting *Genitourinary Genitourinary: Denies difficulty urinating *Musculoskeletal Musculoskeletal: Denies muscle weakness Integumentary/Breasts Skin/Breast: Denies changing lesions *Neurologic Neurologic: Denies headache(s), Denies loss of vision, Reports vertigo and Reports weakness Meds Home Medications and Allergies Home Medications ?Medication ?Instructions ?Recorded ?Confirmed ?Type aspirin 81 mg tablet,delayed 81 mg PO DAILY 08/24/20 03/08/24 History release azelastine 137 mcg (0.1 %) nasal 2 spray intranasal HS 90 days #30 09/11/23 03/08/24 Rx spray mL fluticasone fur. 100 mcg-umeclid 1 inh inhalation DAILY 90 days #90 11/08/23 03/08/24 Rx 62.5 mcg-vilant 25 mcg ea inhalat.powder (Trelegy Ellipta) fluticasone propionate 50 2 spray intranasal DAILY 90 days 11/20/23 03/08/24 Rx mcg/actuation nasal #16 grams spray,suspension (Flonase Allergy Relief) metoprolol succinate 25 mg 25 mg PO HS 11/22/23 03/08/24 History tablet,extended release 24 hr levothyroxine 150 mcg tablet 150 mcg PO DAILY #90 tabs 12/12/23 03/08/24 Rx alfuzosin 10 mg tablet,extended 10 mg PO DAILY 90 days #90 tabs 12/25/23 03/08/24 Rx release 24 hr lovastatin 40 mg tablet 40 mg PO HS 30 days #30 tabs 12/26/23 03/08/24 Rx allopurinol 300 mg tablet 300 mg PO DAILY 90 days #90 tabs 02/01/24 03/08/24 Rx docusate sodium 100 mg tablet 100 mg PO DAILY 03/08/24 03/08/24 History folic acid 1 mg tablet 1 mg PO DAILY 03/08/24 03/08/24 History ondansetron 4 mg disintegrating 4 mg PO Q6H PRN Nausea And Vomiting 03/08/24 03/08/24 History tablet polyethylene glycol 3350 17 17 g PO DAILY PRN Constipation 03/08/24 03/08/24 History gram/dose oral powder (Miralax) famotidine 20 mg tablet 20 mg PO DAILY 03/09/24 03/09/24 History furosemide 20 mg tablet 20 mg PO DAILY #90 tabs 03/11/24 Rx levofloxacin 750 mg tablet 750 mg PO DAILY #5 tabs 03/11/24 Rx metoprolol succinate 50 mg 50 mg PO HS #90 tabs 03/11/24 Rx tablet,extended release 24 hr (Toprol XL) New Prescriptions to Start Prescriptions: furosemide Julian,Jayy levofloxacin Julian,[employer] [place] metoprolol succinate [Toprol XL] Julian,Jayy Allergies Allergy/AdvReac Type Severity Reaction Status Date / Time No Known Drug Allergies Allergy Unknown Unknown Verified 02/15/24 10:57 [NKDA] allergy reaction Exam Data for Last 24 hours Vital signs and Labs for Last 24 Hours: Temp Pulse Resp BP Pulse Ox O2 Del Method O2 Flow Rate 98.4 F 76 21 120/60 99 Nasal Cannula 2 03/08/24 17:03 03/08/24 20:01 03/08/24 20:01 03/08/24 20:01 03/08/24 20:01 03/08/24 18:30 03/08/24 17:03 Laboratory Results - last 24 hr 03/08/24 17:24: WBC 2.7 L, RBC 3.78 L, Hgb 11.9 L, Hct 39.3 L, MCV 104.0 H, MCH 31.5 H, MCHC 30.3 L, RDW 14.4, Plt Count 90 L, MPV 10.3, Neut % (Auto) 60.0, Lymph % (Auto) 28.8, [place] % (Auto) 9.4 H, Eos % (Auto) 1.1, Baso % (Auto) 0.7, Neut # (Auto) 1.6 L, Lymph # (Auto) 0.8, [place] # (Auto) 0.3, Eos # (Auto) 0.0, Baso # (Auto) 0.0, PT 11.4, INR 1.02, APTT 24.8, D-Dimer 2.40 H, Sodium 138, Potassium 3.4 L, Chloride 100, Carbon Dioxide 36 H, Anion Gap 5.4, BUN 14, Creatinine 0.60 L, Estimated Creat Clear 75, Estimated GFR 133, Est GFR ( Amer) 161, Glucose 188 H, Calcium 8.8, Magnesium 1.6, Total Bilirubin 0.4, AST 69 H, ALT 47, Alkaline Phosphatase 64, Troponin I < 0.01, NT-Pro-B Natriuret Pep 4430 H, Total Protein 6.1 L, Albumin 3.5, Globulin 2.6, Albumin/Globulin Ratio 1.3, Lipase 27, TSH 0.48, Thyroxine (T4) 17.1 H 03/08/24 17:31: Lactate 2.4 H I & O for Last 24 hours: Intake & Output 03/05/24 03/06/24 03/07/24 03/08/24 23:59 23:59 23:59 23:59 Weight 76.657 kg Constitutional Constitutional: no acute distress *Routine HEENT Exam Head: Present normocephalic and atraumatic Eye: Present EOMI and PERRL ENT: Present mucous membranes dry *Routine Neck Exam Neck: Present supple and full ROM *Routine Respiratory Exam Respiratory: Present decreased breath sounds and wheezes (anterior) *Routine Cardiovascular Exam Cardiovascular: Present RRR *Routine Abdominal Exam Abdominal: Present soft and normoactive bowel sounds; Absent tenderness *Routine Rectal Exam Rectal:: deferred *Routine Genitalia Exam Genitalia:: deferred *Routine Extremities Exam Extremities: Absent cyanosis, clubbing or edema *Routine Skin Exam Skin: Present intact; Absent erythema *Routine Neurological Exam Neurological: Present alert (confused this am) H&P: Result Imaging and Cardiology Chest x-ray: Status: image reviewed by me, Preliminary report and final report EKG: Status: image reviewed by me, Preliminary report and final report Assessment and Plan *Assessment and plan (1) Acute hypoxic on chronic hypercapnic respiratory failure: Status: Inactive Category: Medical Code(s): J96.01 - Acute respiratory failure with hypoxia; J96.12 - Chronic respiratory failure with hypercapnia (2) Neutropenia: Status: Acute Category: Medical Code(s): D70.9 - Neutropenia, unspecified (3) Malignant neoplasm of unspecified part of unspecified bronchus or lung: Status: Chronic Category: Medical Code(s): C34.90 - Malignant neoplasm of unspecified part of unspecified bronchus or lung (4) COPD (chronic obstructive pulmonary disease): Status: Inactive Category: Medical Code(s): J44.9 - Chronic obstructive pulmonary disease, unspecified (5) Shortness of breath: Status: Acute Category: Medical Code(s): R06.02 - Shortness of breath (6) History of ASCVD: Status: Chronic Category: Medical Code(s): Z86.79 - Personal history of other diseases of the circulatory system (7) PAF (paroxysmal atrial fibrillation): Status: Acute Category: Medical Code(s): I48.0 - Paroxysmal atrial fibrillation (8) Pulmonary emphysema: Status: Chronic Qualifiers: Emphysema type: unspecified Qualified Code(s): J43.9 - Emphysema, unspecified Category: Medical Code(s): J43.9 - Emphysema, unspecified (9) Hypothyroidism: Status: Inactive Category: Medical Code(s): E03.9 - Hypothyroidism, unspecified (10) Hypertension: Status: Chronic Qualifiers: Hypertension type: essential hypertension Qualified Code(s): I10 - Essential (primary) hypertension Category: Medical Code(s): I10 - Essential (primary) hypertension (11) HLD (hyperlipidemia): Status: Chronic Qualifiers: Hyperlipidemia type: mixed hyperlipidemia Qualified Code(s): E78.2 - Mixed hyperlipidemia Category: Medical Code(s): E78.5 - Hyperlipidemia, unspecified (12) CHF (congestive heart failure): Status: Chronic Qualifiers: Heart failure chronicity: chronic Heart failure type: diastolic Qualified Code(s): I50.32 - Chronic diastolic (congestive) heart failure Category: Medical Code(s): I50.9 - Heart failure, unspecified (13) CAD (coronary artery disease): Status: Chronic Qualifiers: Associated angina: without angina Coronary Disease-Associated Artery/Lesion type: [place] artery [place] vs. transplanted heart: [place] heart Qualified Code(s): I25.10 - Atherosclerotic heart disease of [place] coronary artery without angina pectoris Category: Medical Code(s): I25.10 - Atherosclerotic heart disease of [place] coronary artery without angina pectoris Plan 68-year-old male PMHx of hypertension, hyperlipidemia, CAD status post stenting, AAA, COPD on 2.5 L nasal canula. On arrival, patient hemodynamically stable, alert, oriented x4, appropriate, GCS 15, moving all extremities spontaneously, pupils equal and reactive to light. Full physical exam performed and significant for very well-appearing male who is in no acute distress. 3 L nasal cannula to saturate right around 91%. Workup significant for right-sided pleural effusion. Patient does have elevated BNP. Pancytopenia, likely secondary to malignancy treatment. Kidney function stable. no acute pulmonary embolus on CT PE. BNP elevated. Discussed with ED. agreed for admission: -Acute on chronic respiratory failure: Suspected CHF observation Worsening right pleural effusion, likely secondary to malignant neoplasm Pancytopenia Dyspnea Admit patient for medical services Continuous clinical research monitor Optimize O2 saturation. Currently on 3 L nasal cannula. Weaning off Serial troponin BNP elevated. Last echocardiogram from November showed normal ejection fraction Pulmonology consult. Patient might be beneficial for thoracentesis Lasix given at the ER improved breathing condition Pain management Repeat labs in the morning. Watch for electrolyte imbalance Other chronic conditions: Afib COPD hypertension hyperlipidemia coronary artery disease Conditions reviewed. Resume home medication On MiraLAX for constipation improved Synthroid for hypothyroidism On statin and aspirin Nebulizer as needed Lovenox for DVT prophylaxis. Protonix for GI bleed protection Full code
--- NOTE | 2024-03-08 20:29 | PC.NURSE ---
Report called to ADRIANNA Mcguire
[2024-03-08 20:52] LABS: Troponin I < 0.01 ng/ml (0.00-0.034)
[2024-03-08 21:34] LABS: Reflex Lactic Add Lactic Reflex
[2024-03-08 22:21] LABS: Lactic Acid Follow Up (RFLX 1) 1.2 mmol/L (0.7-2.1)
[2024-03-08 23:05] LABS: Troponin I < 0.01 ng/ml (0.00-0.034)
[2024-03-09] VITALS: PULSE 70
[2024-03-09 04:00] VITALS: BP 119/69; PULSE 70; PULSE 71; RESP 18; TEMP 36.6; O2SAT 98; BMI 25.1
--- NOTE | 2024-03-09 05:39 | PC.NURSE ---
pt admitted for chf ex, pt voided 1500 ml from administration of lasix. pt on 2l/nc, sinus arrythmia on monitor. pt denies cp, productive cough noted. hr in the 70's. no tachycardia noted
[2024-03-09 07:08] LABS: Eosinophils % 1.8 % (0.1-12.0); Hematocrit 36.5 % (42.0-52.0); Hemoglobin 11.4 g/dL (14.1-18.0); Lymphocytes # 0.8 K/mm3 (0.7-4.5); Lymphocytes % 34.9 % (10-50); Mean Corpuscular HGB Conc 31.2 g/dL (31.8-35.4); Mean Corpuscular Hemoglobin 31.9 pg (27.0-31.2); Mean Corpuscular Volume 102.1 fl (80-94); Mean Platelet Volume 10.4 fl (7.4-10.4); Monocytes # 0.2 K/mm3 (0.1-1.0); Neutrophils # 1.2 K/mm3 (1.8-7.8); Neutrophils % 54.2 % (37.0-80.0); Platelet Count 88 K/mm3 (142-424); Red Blood Count 3.57 M/mm3 (4.60-6.20); Red Cell Distribution Width 14.6 % (11.5-17.5); White Blood Count 2.2 K/mm3 (4.8-10.8)
[2024-03-09 07:22] LABS: Magnesium 1.6 mg/dl (1.6-2.3)
[2024-03-09 07:24] LABS: Alanine Aminotransferase 46 U/L (12-78); Albumin Level 2.9 g/dl (3.5-5.0); Albumin/Globulin Ratio 1.1 (1.1-1.8); Alkaline Phosphatase 46 U/L (38-126); Aspartate Amino Transferase 58 U/L (17-59); Bilirubin,Total 0.4 mg/dl (0.2-1.3); Blood Urea Nitrogen 11 mg/dl (9-20); Calcium 8.4 mg/dl (8.4-10.2); Chloride 100 mmol/L (98-107); Creatinine Clearance Estimated 73 mL/min (50-200); Estimated Glomerular Filt Rate 133 ml/min (>60); GFR (African American) 161 ML/MIN (>60); Globulin 2.7 g/dL (1.3-3.2); Glucose 86 mg/dl (74-100); Potassium 3.5 mmoL/L (3.5-5.1); Sodium 140 mmol/L (136-145); Total Protein,Serum 5.6 g/dl (6.3-8.2)
[2024-03-09 07:31] LABS: Anion Gap 4.5 mEq/L (5-15); Carbon Dioxide 39 mmol/L (22.0-30.0)
[2024-03-09 08:00] VITALS: BP 102/51; PULSE 71; PULSE 90; RESP 18; TEMP 36.9; O2SAT 96
[2024-03-09] MEDS: ENOXAPARIN 40MG/0.4ML SYRINGE 40 MG SQ (08:30)
[2024-03-09 12:00] VITALS: BP 108/56; PULSE 73; PULSE 80; RESP 18; TEMP 36.8; O2SAT 96
--- NOTE | 2024-03-09 14:36 | ECG_ITS ---
APPROVED REPORT Exam: Resting ECG HR:116 bpm ECG Measurements Heart Rate 116 AXES QRSd 108 QRS -85 QT 313 T 84 QTc 382 Conclusion ATRIAL FIBRILLATION WITH RAPID VENTRICULAR RESPONSE PATTERN CONSISTENT WITH PULMONARY DISEASE RIGHT BUNDLE BRANCH BLOCK [120+ ms QRS DURATION, UPRIGHT V1, 40+ ms S IN I/aVL/V4/V5/V6] LEFT ANTERIOR FASCICULAR BLOCK [QRS AXIS <= -45, QR IN I, RS IN II] ABNORMAL ECG UNCONFIRMED REPORT Electronically signed by : Clark Garland MD 03/10/2024 20:37:07
[2024-03-09] MEDS: METOPROLOL TARTRATE 5MG/5ML VIAL 5 MG IV ×2 (15:03→22:01)
--- NOTE | 2024-03-09 15:05 | P.PN_ITS ---
Subjective *Date: 03/09/24 *Time: 15:05 Interval history: seen at bedside, denied CP, SOB , no acute events overnight Exam Data for Last 24 hours Vital signs and Labs for Last 24 Hours: Temp Pulse Resp BP Pulse Ox O2 Del Method O2 Flow Rate 98.2 F 73 18 108/56 L 96 Nasal Cannula 2 03/09/24 12:00 03/09/24 12:00 03/09/24 12:00 03/09/24 12:00 03/09/24 12:00 03/09/24 14:41 03/09/24 14:41 Laboratory Results - last 24 hr 03/08/24 17:24: WBC 2.7 L, RBC 3.78 L, Hgb 11.9 L, Hct 39.3 L, MCV 104.0 H, MCH 31.5 H, MCHC 30.3 L, RDW 14.4, Plt Count 90 L, MPV 10.3, Neut % (Auto) 60.0, Lymph % (Auto) 28.8, [place] % (Auto) 9.4 H, Eos % (Auto) 1.1, Baso % (Auto) 0.7, Neut # (Auto) 1.6 L, Lymph # (Auto) 0.8, [place] # (Auto) 0.3, Eos # (Auto) 0.0, Baso # (Auto) 0.0, PT 11.4, INR 1.02, APTT 24.8, D-Dimer 2.40 H, Sodium 138, Potassium 3.4 L, Chloride 100, Carbon Dioxide 36 H, Anion Gap 5.4, BUN 14, Creatinine 0.60 L, Estimated Creat Clear 75, Estimated GFR 133, Est GFR ( Amer) 161, Glucose 188 H, Calcium 8.8, Magnesium 1.6, Total Bilirubin 0.4, AST 69 H, ALT 47, Alkaline Phosphatase 64, Troponin I < 0.01, NT-Pro-B Natriuret Pep 4430 H, Total Protein 6.1 L, Albumin 3.5, Globulin 2.6, Albumin/Globulin Ratio 1.3, Lipase 27, TSH 0.48, Thyroxine (T4) 17.1 H 03/08/24 17:31: Lactate 2.4 H 03/08/24 20:20: Troponin I < 0.01 03/08/24 22:05: Lactate 1.2 03/08/24 22:45: Troponin I < 0.01 03/09/24 06:28: WBC 2.2 L, RBC 3.57 L, Hgb 11.4 L, Hct 36.5 L, MCV 102.1 H, MCH 31.9 H, MCHC 31.2 L, RDW 14.6, Plt Count 88 L, MPV 10.4, Neut % (Auto) 54.2, Lymph % (Auto) 34.9, [place] % (Auto) 8.0, Eos % (Auto) 1.8, Baso % (Auto) 1.0, Neut # (Auto) 1.2 L, Lymph # (Auto) 0.8, [place] # (Auto) 0.2, Eos # (Auto) 0.0, Baso # (Auto) 0.0, Sodium 140, Potassium 3.5, Chloride 100, Carbon Dioxide 39 H, Anion Gap 4.5 L, BUN 11, Creatinine 0.60 L, Estimated Creat Clear 73, Estimated GFR 133, Est GFR ( Amer) 161, Glucose 86 D, Calcium 8.4, Magnesium 1.6, Total Bilirubin 0.4, AST 58, ALT 46, Alkaline Phosphatase 46, Total Protein 5.6 L, Albumin 2.9 L D, Globulin 2.7, Albumin/Globulin Ratio 1.1 I & O for Last 24 hours: Intake & Output 03/06/24 03/07/24 03/08/24 03/09/24 23:59 23:59 23:59 23:59 Intake Total 940 / 940 Output Total 0 / 700 850 / 850 Balance 0 / -480 90 / 90 Weight 76.657 kg 75.206 kg Constitutional Constitutional: no acute distress *Routine HEENT Exam Head: Present normocephalic Eye: Present EOMI and PERRL ENT: Present mucous membranes moist *Routine Neck Exam Neck: Present supple; Absent lymphadenopathy *Routine Respiratory Exam Respiratory: Present CTA bilaterally *Routine Cardiovascular Exam Cardiovascular: Present RRR *Routine Abdominal Exam Abdominal: Present soft and normoactive bowel sounds; Absent tenderness *Routine Extremities Exam Extremities: Absent cyanosis, clubbing or edema *Routine Skin Exam Skin: Present warm; Absent rash *Routine Neurological Exam Neurological: Present alert and oriented X3 Assessment and Plan *Assessment and plan (1) Acute hypoxic on chronic hypercapnic respiratory failure: Status: Inactive Category: Medical Code(s): J96.01 - Acute respiratory failure with hypoxia; J96.12 - Chronic respiratory failure with hypercapnia (2) Neutropenia: Status: Acute Category: Medical Code(s): D70.9 - Neutropenia, unspecified (3) Malignant neoplasm of unspecified part of unspecified bronchus or lung: Status: Chronic Category: Medical Code(s): C34.90 - Malignant neoplasm of unspecified part of unspecified bronchus or lung (4) COPD (chronic obstructive pulmonary disease): Status: Inactive Category: Medical Code(s): J44.9 - Chronic obstructive pulmonary disease, unspecified (5) Shortness of breath: Status: Acute Category: Medical Code(s): R06.02 - Shortness of breath (6) History of ASCVD: Status: Chronic Category: Medical Code(s): Z86.79 - Personal history of other diseases of the circulatory system (7) PAF (paroxysmal atrial fibrillation): Status: Acute Category: Medical Code(s): I48.0 - Paroxysmal atrial fibrillation (8) Pulmonary emphysema: Status: Chronic Qualifiers: Emphysema type: unspecified Qualified Code(s): J43.9 - Emphysema, unspecified Category: Medical Code(s): J43.9 - Emphysema, unspecified (9) Hypothyroidism: Status: Inactive Category: Medical Code(s): E03.9 - Hypothyroidism, unspecified (10) Hypertension: Status: Chronic Qualifiers: Hypertension type: essential hypertension Qualified Code(s): I10 - Essential (primary) hypertension Category: Medical Code(s): I10 - Essential (primary) hypertension (11) HLD (hyperlipidemia): Status: Chronic Qualifiers: Hyperlipidemia type: mixed hyperlipidemia Qualified Code(s): E78.2 - Mixed hyperlipidemia Category: Medical Code(s): E78.5 - Hyperlipidemia, unspecified (12) CHF (congestive heart failure): Status: Chronic Qualifiers: Heart failure type: diastolic Heart failure chronicity: chronic Qualified Code(s): I50.32 - Chronic diastolic (congestive) heart failure Category: Medical Code(s): I50.9 - Heart failure, unspecified (13) CAD (coronary artery disease): Status: Chronic Qualifiers: Coronary Disease-Associated Artery/Lesion type: [place] artery [place] vs. transplanted heart: [place] heart Associated angina: without angina Quali fied Code(s): I25.10 - Atherosclerotic heart disease of [place] coronary artery without angina pectoris Category: Medical Code(s): I25.10 - Atherosclerotic heart disease of [place] coronary artery without angina pectoris Plan 68-year-old male PMHx of hypertension, hyperlipidemia, CAD status post stenting, AAA, COPD on 2.5 L nasal canula. On arrival, patient hemodynamically stable, alert, oriented x4, appropriate, GCS 15, moving all extremities spontaneously, pupils equal and reactive to light. Full physical exam performed and significant for very well-appearing male who is in no acute distress. 3 L nasal cannula to saturate right around 91%. Workup significant for right-sided pleural effusion. Patient does have elevated BNP. Pancytopenia, likely secondary to malignancy treatment. Kidney function stable. no acute pulmonary embolus on CT PE. BNP elevated. Discussed with ED. agreed for admission: Acute on chronic respiratory failure: Suspected CHF observation Worsening right pleural effusion, likely secondary to malignant neoplasm Pancytopenia Continuous traffic monitor specialist Optimize O2 saturation. Currently on 3 L nasal cannula. Serial troponin BNP elevated. Last echocardiogram from November showed normal ejection fraction Pulmonology consult. Patient might be beneficial for thoracentesis Lasix given at the ER improved breathing condition Pain management Repeat labs in the morning. Watch for electrolyte imbalance Afib RVR resume home metoprolol IV metoprolol 5mg once monitor on tele Other chronic conditions: Afib COPD hypertension hyperlipidemia coronary artery disease Conditions reviewed. Resume home medication On MiraLAX for constipation improved Synthroid for hypothyroidism On statin and aspirin Nebulizer as needed Lovenox for DVT prophylaxis. Protonix for GI bleed protection Full code
--- NOTE | 2024-03-09 15:34 | PC.NURSE ---
pt complained of his heart racing . EKG showed a-fib and heart monitor revealed heart rate in the 160s. hospitalist made aware and 5mg metoprolol IV ordered. pt was medicated per order and is now in low 100s. pt stated his heart did not feel like it was racing anymore. pt has remained on 2L nc and has remained A&Ox4. pt has had no other complaints throughout shift. hospitalist ordered home medications for pt to start tonight. no new orders at this time. call light within reach.
[2024-03-09 16:00] VITALS: BP 99/53; PULSE 110; PULSE 94; RESP 17; TEMP 37.1; O2SAT 96
[2024-03-09] MEDS: LACTULOSE 20GM/30ML UDC 10 GM PO (17:27)
[2024-03-09 20:00] VITALS: BP 108/62; PULSE 80; PULSE 91; RESP 18; TEMP 37.2; O2SAT 96
[2024-03-09] MEDS: TAMSULOSIN 0.4MG CAPSULE 0.4 MG PO (21:18)
[2024-03-09] MEDS: PANTOPRAZOLE 40MG TABLET 40 MG PO (21:18)
[2024-03-09] MEDS: PRAVASTATIN 40MG TAB 40 MG PO (21:18)
[2024-03-09] MEDS: METOPROLOL SUCCINATE XL 25MG TABLET 25 MG PO (21:18)
[2024-03-10] VITALS (14 sets, daily range): BP systolic 92–112; BP diastolic 50–67; PULSE 60–116; RESP 16–18; TEMP 36.5–36.8; O2SAT 86–99; BMI 25.5
--- NOTE | 2024-03-10 01:51 | ECG_ITS ---
APPROVED REPORT Exam: Resting ECG HR:71 bpm ECG Measurements Heart Rate 71 AXES AL 143 P 74 QRSd 105 QRS -70 QT 365 T 76 QTc 387 Conclusion SINUS RHYTHM WITH MARKED SINUS ARRHYTHMIA PATTERN CONSISTENT WITH PULMONARY DISEASE LEFT ANTERIOR FASCICULAR BLOCK [QRS AXIS <= -45, QR IN I, RS IN II] ABNORMAL ECG UNCONFIRMED REPORT Electronically signed by : Clark Garland MD 03/10/2024 20:37:00
[2024-03-10] MEDS: FLUTICASONE/UMECLIDIN/VILANTER 100/62.5/25MCG INHALER 1 PUFF IH (05:50)
[2024-03-10] MEDS: LEVOTHYROXINE 150MCG (0.15MG)TAB 150 MCG PO (06:08)
--- NOTE | 2024-03-10 06:57 | ECG_ITS ---
APPROVED REPORT Exam: Resting ECG HR:76 bpm ECG Measurements Heart Rate 76 AXES QRSd 162 QRS 88 QT 434 T -88 QTc 465 Conclusion UNCERTAIN REGULAR RHYTHM LEFT BUNDLE BRANCH BLOCK [120+ ms QRS DURATION, 80+ ms Q/S IN V1/V2, 85+ ms R IN I/aVL/V5/V6] ABNORMAL ECG UNCONFIRMED REPORT Electronically signed by : Clark Garland MD 03/11/2024 17:57:42
--- NOTE | 2024-03-10 07:07 | PC.NURSE ---
appears on tele pt is throwing numerous back to back pvc's, asymptomatic - ordered ekg, see report - notified benavides - ordered stat trop.
--- NOTE | 2024-03-10 07:42 | ECG_ITS ---
APPROVED REPORT Exam: Resting ECG HR:73 bpm ECG Measurements Heart Rate 73 AXES QRSd 159 QRS 90 QT 435 T -86 QTc 462 Conclusion UNCERTAIN REGULAR RHYTHM INTRAVENTRICULAR CONDUCTION DELAY [130+ ms QRS DURATION] ABNORMAL ECG UNCONFIRMED REPORT Electronically signed by : Clark Garland MD 03/11/2024 17:57:35
[2024-03-10 07:56] LABS: Troponin I < 0.01 ng/ml (0.00-0.034)
[2024-03-10] MEDS: ENOXAPARIN 40MG/0.4ML SYRINGE 40 MG SQ (08:24)
[2024-03-10] MEDS: FOLIC ACID 1MG TABLET 1 MG PO (08:24)
[2024-03-10] MEDS: ALLOPURINOL 300MG TABLET 300 MG PO (08:24)
[2024-03-10] MEDS: FLUTICASONE PROP 50MCG NASAL SPRAY 16GM 2 SPRAY NS (08:24)
[2024-03-10] MEDS: ASPIRIN EC 81MG TABLET 81 MG PO (08:24)
[2024-03-10] MEDS: FAMOTIDINE 20MG TABLET 20 MG PO (08:24)
[2024-03-10] MEDS: DOCUSATE SODIUM 100 MG CAPSULE PO (08:24)
--- NOTE | 2024-03-10 09:00 | PC.NURSE ---
second steward called to inform me that this pt was throwing PVCs. hospitalist made aware. no new orders. pt is asymptomatic. call light within reach.
[2024-03-10 09:35] LABS: Magnesium 1.8 mg/dl (1.6-2.3)
[2024-03-10] MEDS: LACTULOSE 20GM/30ML UDC 20 GM PO (10:52)
--- OUTSIDE RECORDS SUMMARY | 2024-03-10 10:56 | XMS_ITS ---
Author Organization Unknown ALLERGIES AND ADVERSE REACTIONS No information ASSESSMENT No information CHIEF COMPLAINT No information MEDICATIONS No information OBJECTIVE DATA No information PHYSICAL EXAMINATION No information TREATMENT PLAN Planned Care Start Date Provider Encounter for Check-up [id number] [facility] PROBLEMS No information RESULTS No information REVIEW OF SYSTEMS No information SUBJECTIVE DATA No information VITAL SIGNS No information
--- NOTE | 2024-03-10 15:56 | EXP.PN ---
Subjective *Date: 03/10/24 *Time: 15:56 Interval history: seen at bedside, He had frequent PVCs and Afib RVR overnight, he denied any lightheadedness, he is complaining of no BM in past 5 days. denied CP, SOB Exam Data for Last 24 hours Vital signs and Labs for Last 24 Hours: Temp Pulse Resp BP Pulse Ox O2 Del Method O2 Flow Rate 97.7 F 66 16 109/61 L 97 Nasal Cannula 1 03/10/24 15:51 03/10/24 15:51 03/10/24 15:51 03/10/24 15:51 03/10/24 15:51 03/10/24 15:51 03/10/24 15:51 Laboratory Results - last 24 hr 03/10/24 07:20: Troponin I < 0.01 03/10/24 08:35: Magnesium 1.8 D I & O for Last 24 hours: Intake & Output 03/07/24 03/08/24 03/09/24 03/10/24 23:59 23:59 23:59 23:59 Intake Total 1900 / 2380 1920 / 1920 Output Total 0 / 700 850 / 850 500 / 500 Balance 0 / -480 1050 / 1530 1420 / 1420 Weight 76.657 kg 75.206 kg 76.43 kg Constitutional Constitutional: no acute distress *Routine HEENT Exam Head: Present normocephalic Eye: Present EOMI and PERRL ENT: Present mucous membranes moist *Routine Neck Exam Neck: Present supple; Absent lymphadenopathy *Routine Respiratory Exam Respiratory: Present CTA bilaterally *Routine Cardiovascular Exam Cardiovascular: Present tachycardia and irregular rhythm *Routine Abdominal Exam Abdominal: Present soft and normoactive bowel sounds; Absent tenderness *Routine Extremities Exam Extremities: Absent cyanosis, clubbing or edema *Routine Skin Exam Skin: Present warm; Absent rash *Routine Neurological Exam Neurological: Present alert and oriented X3 Assessment and Plan *Assessment and plan (1) Acute hypoxic on chronic hypercapnic respiratory failure: Status: Inactive Category: Medical Code(s): J96.01 - Acute respiratory failure with hypoxia; J96.12 - Chronic respiratory failure with hypercapnia (2) Neutropenia: Status: Acute Category: Medical Code(s): D70.9 - Neutropenia, unspecified (3) Malignant neoplasm of unspecified part of unspecified bronchus or lung: Status: Chronic Category: Medical Code(s): C34.90 - Malignant neoplasm of unspecified part of unspecified bronchus or lung (4) COPD (chronic obstructive pulmonary disease): Status: Inactive Category: Medical Code(s): J44.9 - Chronic obstructive pulmonary disease, unspecified (5) Shortness of breath: Status: Acute Category: Medical Code(s): R06.02 - Shortness of breath (6) History of ASCVD: Status: Chronic Category: Medical Code(s): Z86.79 - Personal history of other diseases of the circulatory system (7) PAF (paroxysmal atrial fibrillation): Status: Acute Category: Medical Code(s): I48.0 - Paroxysmal atrial fibrillation (8) Pulmonary emphysema: Status: Chronic Qualifiers: Emphysema type: unspecified Qualified Code(s): J43.9 - Emphysema, unspecified Category: Medical Code(s): J43.9 - Emphysema, unspecified (9) Hypothyroidism: Status: Inactive Category: Medical Code(s): E03.9 - Hypothyroidism, unspecified (10) Hypertension: Status: Chronic Qualifiers: Hypertension type: essential hypertension Qualified Code(s): I10 - Essential (primary) hypertension Category: Medical Code(s): I10 - Essential (primary) hypertension (11) HLD (hyperlipidemia): Status: Chronic Qualifiers: Hyperlipidemia type: mixed hyperlipidemia Qualified Code(s): E78.2 - Mixed hyperlipidemia Category: Medical Code(s): E78.5 - Hyperlipidemia, unspecified (12) CHF (congestive heart failure): Status: Chronic Qualifiers: Heart failure type: diastolic Heart failure chronicity: chronic Qualified Code(s): I50.32 - Chronic diastolic (congestive) heart failure Category: Medical Code(s): I50.9 - Heart failure, unspecified (13) CAD (coronary artery disease): Status: Chronic Qualifiers: Coronary Disease-Associated Artery/Lesion type: [place] artery [place] vs. transplanted heart: [place] heart Associated angina: without angina Qualified Code(s): I25.10 - Atherosclerotic heart disease of [place] coronary artery without angina pectoris Category: Medical Code(s): I25.10 - Atherosclerotic heart disease of [place] coronary artery without angina pectoris Plan 68-year-old male PMHx of hypertension, hyperlipidemia, CAD status post stenting, AAA, COPD on 2.5 L nasal canula. On arrival, patient hemodynamically stable, alert, oriented x4, appropriate, GCS 15, moving all extremities spontaneously, pupils equal and reactive to light. Full physical exam performed and significant for very well-appearing male who is in no acute distress. 3 L nasal cannula to saturate right around 91%. Acute on chronic respiratory failure: Suspected CHF observation Worsening right pleural effusion, likely secondary to malignant neoplasm Pancytopenia monitor on telemetry Optimize O2 saturation. Currently on 2 L nasal cannula which is at baseline BNP elevated. Last echocardiogram from November showed normal ejection fraction Pulmonology consult. Patient may benefit from thoracentesis Repeat labs in the morning. Watch for electrolyte imbalance Afib RVR resume home metoprolol IV metoprolol 5mg once monitor on tele consult cardiology Constipation given lactulose with no relief, order dulcolax suppository, already on miralax Other chronic conditions: Afib COPD hypertension hyperlipidemia coronary artery disease Conditions reviewed. Resume home medication On MiraLAX for constipation improved Synthroid for hypothyroidism On statin and aspirin Nebulizer as needed Lovenox for DVT prophylaxis. Protonix for GI bleed protection Full code await Cardiology and pulmonary leia gaston dc 1-2 days
--- NOTE | 2024-03-10 16:07 | PC.NURSE ---
pt has remained on 1L o2 via nc this shift. pt hs been ambulating to and from bathroom with no assistance throughout shift and has had no issues. pt c/o constipation earlier in shift, lactulose was ordered, but with no result. hospitalist was made aware and suppository was ordered. pt had period of PVCs earlier in shift ( see previous note). pt has had no other complaints throughout shift. no new orders at this time. call light within reach
[2024-03-10] MEDS: BISACODYL 10MG SUPP 10 MG RC (16:32)
[2024-03-10] MEDS: AMIODARONE HCL 900 MG in DEXTROSE 5 % IN WATER 500 ML 34.53 MG IV (18:47)
[2024-03-10 19:17] LABS: Free T4 (Free Thyroxine) 1.77 ng/dl (0.78-2.19)
[2024-03-10] MEDS: METOPROLOL TARTRATE 5MG/5ML VIAL 5 MG IV (19:21)
--- NOTE | 2024-03-10 19:25 | P.CONCA_ITS ---
History of Present Illness History of Present Illness Consult date: 03/10/24 Requesting physician: Wilfred Bunch Consult reason: shortness of breath Chief complaint: Shortness of breath and palpitations History of present illness: This is a 68-year-old white male with past medical history of hypertension, hyperlipidemia, coronary artery disease status post stenting, AAA, COPD on 2.5 L nasal cannula and stage IV lung cancer status post chemo and radiation who presented to emergency department with complaints of increased shortness of breath and palpitations which started after starting steroids. Patient reports increased shortness of breath and palpitations over the last few days worse with exertion better with rest. Denies orthopnea. Denies lower extremity edema. Patient reports he is noticed that when he walks his oxygen saturation has been dropping his heart rate has been going up to the 140s and 150s. Denies any history of A-fib. Upon presentation to emergency department initial EKG shows sinus arrhythmia at a rate of 89. Subsequent EKGs have shown A-fib RVR. Labs are as follow: WBC 2.7, hemoglobin 11.9, platelets 90, D-dimer elevated 2.4, sodium 138, potassium 3.4, creatinine 0.6, glucose 188, lactate 2.4, AST 69, ALT 47, serial troponins negative, proBNP 4430, TSH normal. A chest CTA was obtained which shows no pulmonary embolism, scattered pulmonary nodules that are new or enlarging worrisome for progressive metastatic disease, small to moderate size right pleural effusion, and severe coronary artery calcifications. Patient was admitted for further evaluation for palpitation and A-fib RVR. Echocardiogram is pending. [facility] Disclaimer: The information contained in this section may have been updated after the patient was seen, as this information can be updated by other users. Medical History Acute respiratory failure with hypoxia Acute hypercapnic respiratory failure Acute exacerbation of chronic obstructive pulmonary disease Acute hypoxic on chronic hypercapnic respiratory failure COPD (chronic obstructive pulmonary disease) Olecranon bursitis of right elbow Elbow mass Swelling Hilar lymphadenopathy Allergic rhinitis History of lung or bronchial cancer Mediastinal lymphadenopathy History of esophageal dilatation Sinusitis Gynecomastia Discharge from left nipple PAF (paroxysmal atrial fibrillation) COPD (chronic obstructive pulmonary disease) Dyspnea on exertion Malignant neoplasm of unspecified part of unspecified bronchus or lung Pulmonary emphysema Smoking greater than 30 pack years Lung nodule Tobacco abuse counseling HAP (hospital-acquired pneumonia) Influenza A Acute on chronic respiratory failure with hypoxia and hypercapnia Urinary tract infection Tobacco abuse AAA (abdominal aortic aneurysm) Melanoma Thyroid disease Sinus problem History of radiation therapy History of chemotherapy Cataract Myocardial infarction Lung disease DVT (deep venous thrombosis) Cancer Atherosclerotic heart disease Hypotension HLD (hyperlipidemia) Abnormal EKG CAD (coronary artery disease) CHF (congestive heart failure) Gout Tobacco abuse disorder Hypertension Hypothyroidism COPD exacerbation Surgical History H/O melanoma excision History of heart artery stent History of cardiac cath History of colonoscopy Family History Other AAA (abdominal aortic aneurysm) Coronary artery disease Gout Heart attack Hypertension Social History Smoking Status: Current every day smoker tobacco type: cigarettes packs per day: 1 alcohol intake: former substance use type: denies use 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ional status: retired and disabled Travel in the last 8 weeks: None household members: spouse housing: house lives independently: No marital status: education level: high school service: No snf: No caffeine: No special honey needs: No agree to transfusion: No do you feel safe at home: Yes victim of physical abuse: No victim of emotional abuse: No victim of sexual abuse: No would you like helpful sources: No Review of Systems Review of Systems Review of systems:: pertinent systems reviewed and negative unless documented b elow Constitutional Constitutional: Denies headache(s) and Reports weakness Eyes Eyes: Denies loss of vision ENT Ears, Nose, Mouth, and Throat: Denies headache(s) and Reports vertigo *Cardiovascular Cardiovascular: Reports dyspnea on exertion Comments: Palpitations *Respiratory Respiratory: Reports dyspnea on exertion *Neurologic Neurologic: Denies headache(s), Denies loss of vision, Reports vertigo and Reports weakness Exam Data for Last 24 hours Vital signs and Labs for Last 24 Hours: Temp Pulse Resp BP Pulse Ox O2 Del Method O2 Flow Rate 97.7 F 80 16 109/61 L 97 Nasal Cannula 1 03/10/24 15:51 03/10/24 16:00 03/10/24 15:51 03/10/24 15:51 03/10/24 15:51 03/10/24 18:58 03/10/24 18:58 Laboratory Results - last 24 hr 03/10/24 07:20: Troponin I < 0.01, Free T4 1.77 03/10/24 08:35: Magnesium 1.8 D I & O for Last 24 hours: Intake & Output 03/07/24 03/08/24 03/09/24 03/10/24 23:59 23:59 23:59 23:59 Intake Total 1900 / 2380 2190 / 2190 Output Total 0 / 700 850 / 850 500 / 500 Balance 0 / -480 1050 / 1530 1690 / 1690 Weight 169 lb 165 lb 12.8 oz 168 lb 7.989 oz *Routine Cardiovascular Exam Comments: A-fib Meds Home Medications and Allergies Home Medications ?Medication ?Instructions ?Recorded ?Confirmed ?Type aspirin 81 mg tablet,delayed 81 mg PO DAILY 08/24/20 03/08/24 History release azelastine 137 mcg (0.1 %) nasal 2 spray intranasal HS 90 days #30 09/11/23 03/08/24 Rx spray mL fluticasone fur. 100 mcg-umeclid 1 inh inhalation DAILY 90 days #90 11/08/23 03/08/24 Rx 62.5 mcg-vilant 25 mcg ea inhalat.powder (Trelegy Ellipta) fluticasone propionate 50 2 spray intranasal DAILY 90 days 11/20/23 03/08/24 Rx mcg/actuation nasal #16 grams spray,suspension (Flonase Allergy Relief) metoprolol succinate 25 mg 25 mg PO HS 11/22/23 03/08/24 History tablet,extended release 24 hr levothyroxine 150 mcg tablet 150 mcg PO DAILY #90 tabs 12/12/23 03/08/24 Rx alfuzosin 10 mg tablet,extended 10 mg PO DAILY 90 days #90 tabs 12/25/23 03/08/24 Rx release 24 hr lovastatin 40 mg tablet 40 mg PO HS 30 days #30 tabs 12/26/23 03/08/24 Rx allopurinol 300 mg tablet 300 mg PO DAILY 90 days #90 tabs 02/01/24 03/08/24 Rx docusate sodium 100 mg tablet 100 mg PO DAILY 03/08/24 03/08/24 History folic acid 1 mg tablet 1 mg PO DAILY 03/08/24 03/08/24 History ondansetron 4 mg disintegrating 4 mg PO Q6H PRN Nausea And Vomiting 03/08/24 03/08/24 History tablet polyethylene glycol 3350 17 17 g PO DAILY PRN Constipation 03/08/24 03/08/24 History gram/dose oral powder (Miralax) famotidine 20 mg tablet 20 mg PO DAILY 03/09/24 03/09/24 History New Prescriptions to Start Prescriptions: Allergies Allergy/AdvReac Type Severity Reaction Status Date / Time No Known Drug Allergies Allergy Unknown Unknown Verified 02/15/24 10:57 [NKDA] allergy reaction Assessment and Plan *Assessment and plan (1) Shortness of breath: Status: Acute Category: Medical Code(s): R06.02 - Shortness of breath (2) PAF (paroxysmal atrial fibrillation): Status: Acute Category: Medical Code(s): I48.0 - Paroxysmal atrial fibrillation (3) CAD (coronary artery disease): Status: Chronic Qualifiers: Associated angina: without angina Coronary Disease-Associated Artery/Lesion type: [place] artery [place] vs. transplanted heart: [place] heart Qualified Code(s): I25.10 - Atherosclerotic heart disease of [place] coronary artery without angina pectoris Category: Medical Code(s): I25.10 - Atherosclerotic heart disease of [place] coronary artery without angina pectoris (4) CHF (congestive heart failure): Status: Chronic Qualifiers: Heart failure chronicity: chronic Heart failure type: diastolic Qualified Code(s): I50.32 - Chronic diastolic (congestive) heart failure Category: Medical Code(s): I50.9 - Heart failure, unspecified Plan Shortness of breath New onset A-fib Volume overload Concern for worsening metastatic disease EKG shows A-fib at a rate of 100 Recently started on steroids Increase metoprolol succinate to 50 mg p.o. nightly Echocardiogram pending Start Lasix 40 mg p.o. daily No OAC at this time due to low platelets, high bleeding risk CAD MAGDY years ago per patient Serial Troponin negative EKG negative for acute changes On aspirin and statin. can continue History of metastatic lung disease Anemia Thrombocytopenia Platelets 88, hemoglobin 11.4 CV summary 03/10/2024: Echocardiogram is pending. Goal is to achieve and maintain rate control of less than 100. Holding on OAC at this time due to low platelets, concern for high bleeding risk. CV meds: Aspirin 81 mg po daily Metoprolol Succinate 50mg po daily pravastatin
--- NOTE | 2024-03-10 19:28 | ECG_ITS ---
APPROVED REPORT Exam: Resting ECG HR:92 bpm ECG Measurements Heart Rate 92 AXES QRSd 100 QRS -75 QT 338 T 73 QTc 387 Conclusion ATRIAL FIBRILLATION LOW QRS VOLTAGE IN EXTREMITY LEADS [QRS DEFLECTION < 0.5 mV IN LIMB LEADS] PATTERN CONSISTENT WITH PULMONARY DISEASE LEFT ANTERIOR FASCICULAR BLOCK [QRS AXIS <= -45, QR IN I, RS IN II] ABNORMAL ECG UNCONFIRMED REPORT Electronically signed by : Clark Garland MD 03/10/2024 20:36:52
[2024-03-10 19:32] LABS: Thyroid Stimulating Hormone 1.83 uIU/mL (0.465-4.68)
[2024-03-10] MEDS: METOPROLOL SUCCINATE XL 50MG TABLET 50 MG PO (19:58)
[2024-03-10] MEDS: PANTOPRAZOLE 40MG TABLET 40 MG PO (20:50)
[2024-03-10] MEDS: PRAVASTATIN 40MG TAB 40 MG PO (20:50)
[2024-03-10] MEDS: TAMSULOSIN 0.4MG CAPSULE 0.4 MG PO (20:50)
[2024-03-11] VITALS (12 sets, daily range): BP systolic 73–126; BP diastolic 45–79; PULSE 61–132; RESP 18–22; TEMP 36.3–37; O2SAT 89–99; BMI 26.0
[2024-03-11 06:32] LABS: Chloride 101 mmol/L (98-107)
[2024-03-11 06:33] LABS: Potassium 3.7 mmoL/L (3.5-5.1); Sodium 137 mmol/L (136-145)
[2024-03-11 06:35] LABS: Basophils % 0.6 % (0.1-2.0); Eosinophils # 0.2 K/mm3 (0.0-0.4); Eosinophils % 6.3 % (0.1-12.0); Hematocrit 38.3 % (42.0-52.0); Hemoglobin 11.5 g/dL (14.1-18.0); Lymphocytes # 0.8 K/mm3 (0.7-4.5); Lymphocytes % 28.8 % (10-50); Mean Corpuscular HGB Conc 30.1 g/dL (31.8-35.4); Mean Corpuscular Hemoglobin 31.7 pg (27.0-31.2); Mean Corpuscular Volume 105.1 fl (80-94); Monocytes # 0.3 K/mm3 (0.1-1.0); Monocytes % 10.6 % (1.7-9.3); Neutrophils # 1.5 K/mm3 (1.8-7.8); Neutrophils % 53.8 % (37.0-80.0); Platelet Count 107 K/mm3 (142-424); Red Blood Count 3.64 M/mm3 (4.60-6.20); Red Cell Distribution Width 14.3 % (11.5-17.5); White Blood Count 2.7 K/mm3 (4.8-10.8)
[2024-03-11 06:36] LABS: Anion Gap 2.7 mEq/L (5-15); Blood Urea Nitrogen 11 mg/dl (9-20); Calcium 8.1 mg/dl (8.4-10.2); Carbon Dioxide 37 mmol/L (22.0-30.0); Creatinine Clearance Estimated 76 mL/min (50-200); Estimated Glomerular Filt Rate 133 ml/min (>60); GFR (African American) 161 ML/MIN (>60); Glucose 84 mg/dl (74-100); Magnesium 1.8 mg/dl (1.6-2.3)
--- NOTE | 2024-03-11 06:45 | PC.NURSE ---
Pt rested well throughout the night. Pt has shown A Fib on telemetry and HR has been mostly in the 70s and 80s but did go up to 130s for about 2 minutes 3 different times and then came back down to 70s. Patient now looks like he is going between A Fib and NSR. BP has been soft but stable with SBP > 90. Pt stated he wore 2.5L/NC at home and is currently on 4L; no signs of distress or c/o SOA. Pt has voided using the urinal with clear irina urine and adequate output. Pt is able to get OOB with standby assistance.
--- NOTE | 2024-03-11 07:58 | PC.NURSE ---
Patient up to eat breakfast on the side of the bed. Patient began having multiple pvc's. Patient asymptomatic, VS stable. Three EKG's obtained. Results called to Dr. Julian. No new orders.
--- NOTE | 2024-03-11 08:36 | PC.NURSE ---
Dr. Julian notified of bp 41/52, 73/45, 80/50. Patient asymptomatic. Bolus 250 cc ns ordered
[2024-03-11] MEDS: 0.9 % SODIUM CHLORIDE 250 ML 999 ML IV ×2 (08:46→11:06)
[2024-03-11] MEDS: FAMOTIDINE 20MG TABLET 20 MG PO (10:17)
[2024-03-11] MEDS: ASPIRIN EC 81MG TABLET 81 MG PO (10:17)
[2024-03-11] MEDS: DOCUSATE SODIUM 100 MG CAPSULE PO (10:17)
[2024-03-11] MEDS: LEVOTHYROXINE 150MCG (0.15MG)TAB 150 MCG PO (10:17)
[2024-03-11] MEDS: FOLIC ACID 1MG TABLET 1 MG PO (10:18)
[2024-03-11] MEDS: PRAVASTATIN 40MG TAB 40 MG PO (10:18)
[2024-03-11] MEDS: ALLOPURINOL 300MG TABLET 300 MG PO (10:18)
--- NOTE | 2024-03-11 10:24 | EXP.PULM.CON ---
History of Present Illness History of present illness: Mr. Medeiros is a 76-year-old male history of COPD, lung cancer current chemotherapy on hold secondary leukopenia presented complaining of worsening respiratory distress and tachycardia. Denies any worsening cough/worsening productive phlegm. Subjective fevers or chills. [facility] Disclaimer: The information contained in this section may have been updated after the patient was seen, as this information can be updated by other users. Medical History (Updated 03/11/24 @ 12:12 by Arie Sosa MD) Pleural effusion on right Acute respiratory failure with hypoxia Acute hypercapnic respiratory failure Acute exacerbation of chronic obstructive pulmonary disease Acute hypoxic on chronic hypercapnic respiratory failure COPD (chronic obstructive pulmonary disease) Olecranon bursitis of right elbow Elbow mass Swelling Hilar lymphadenopathy Allergic rhinitis History of lung or bronchial cancer Mediastinal lymphadenopathy History of esophageal dilatation Sinusitis Gynecomastia Discharge from left nipple PAF (paroxysmal atrial fibrillation) COPD (chronic obstructive pulmonary disease) Dyspnea on exertion Malignant neoplasm of unspecified part of unspecified bronchus or lung Pulmonary emphysema Smoking greater than 30 pack years Lung nodule Tobacco abuse counseling HAP (hospital-acquired pneumonia) Influenza A Acute on chronic respiratory failure with hypoxia and hypercapnia Urinary tract infection Tobacco abuse AAA (abdominal aortic aneurysm) Melanoma Thyroid disease Sinus problem History of radiation therapy History of chemotherapy Cataract Myocardial infarction Lung disease DVT (deep venous thrombosis) Cancer Atherosclerotic heart disease Hypotension HLD (hyperlipidemia) Abnormal EKG CAD (coronary artery disease) CHF (congestive heart failure) Gout Tobacco abuse disorder Hypertension Hypothyroidism COPD exacerbation Surgical History H/O melanoma excision History of heart artery stent History of cardiac cath History of colonoscopy Family History Other AAA (abdominal aortic aneurysm) Coronary artery disease Gout Heart attack Hypertension Social History Smoking Status: Current every day smoker tobacco type: cigarettes packs per day: 1 alcohol intake: former substance use type: denies use 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ional status: retired and disabled Travel in the last 8 weeks: None household members: spouse housing: house lives independently: No marital status: education level: high school service: No long term: No caffeine: No special honey needs: No agree to transfusion: No do you feel safe at home: Yes victim of physical abuse: No victim of emotional abuse: No victim of sexual abuse: No would you like helpful sources: No Review of Systems Constitutional Constitutional: Reports fatigue, Denies headache(s) and Reports weakness Eyes Eyes: Denies itchy eyes and Denies loss of vision ENT Ears, Nose, Mouth, and Throat: Denies headache(s), Denies lip swelling, Denies throat swelling and Reports vertigo *Cardiovascular Cardiovascular: Reports dyspnea, Reports dyspnea on exertion and Reports rapid heart rate *Respiratory Respiratory: Denies change in phlegm color, Reports chest congestion, Reports cough, Reports dyspnea, Reports dyspnea on exertion, Denies excessive phlegm production and Denies wheezing *Gastrointestinal Gastrointestinal: Denies abdominal pain, Denies belching and Denies cramping *Musculoskeletal Musculoskeletal: Reports back pain, Reports myalgias and Reports other (No small joint swelling or Pain) *Neurologic Neurologic: Denies headache(s), Denies loss of vision, Reports vertigo and Reports weakness Psychiatric Psychiatric: Denies homicidal ideation and Denies suicidal ideation Endocrine Endocrine: Reports fatigue and Denies heat intolerance Hematologic/Lymphatic Hematologic/Lymphatic: Denies easy bleeding and Denies lymphadenopathy Allergic/Immunologic Allergic/Immunologic: Denies itchy eyes, Denies lip swelling, Denies throat swelling and Denies wheezing Pulmonology Exam Inpatient Vital signs and Labs for Last 24 Hours: Temp Pulse Resp BP Pulse Ox O2 Del Method O2 Flow Rate 97.4 F L 73 18 93/55 L 97 Nasal Cannula 2.5 03/11/24 08:00 03/11/24 10:03/11/24 10:03/11/24 10:00 03/11/24 10:00 03/11/24 10:03/11/24 10:00 Laboratory Results - last 24 hr 03/10/24 07:20: TSH 1.83 D, Free T4 1.77 03/11/24 06:05: WBC 2.7 L, RBC 3.64 L, Hgb 11.5 L, Hct 38.3 L, MCV 105.1 H, MCH 31.7 H, MCHC 30.1 L, RDW 14.3, Plt Count 107 L, MPV 9.0, Neut % (Auto) 53.8, Lymph % (Auto) 28.8, Gregory % (Auto) 10.6 H, Eos % (Auto) 6.3, Baso % (Auto) 0.6, Neut # (Auto) 1.5 L, Lymph # (Auto) 0.8, Gregory # (Auto) 0.3, Eos # (Auto) 0.2, Baso # (Auto) 0.0, Sodium 137, Potassium 3.7, Chloride 101, Carbon Dioxide 37 H, Anion Gap 2.7 L, BUN 11, Creatinine 0.60 L, Estimated Creat Clear 76, Estimated GFR 133, Est GFR ( Amer) 161, Glucose 84, Calcium 8.1 L, Magnesium 1.8 I & O for Labs for Last 24 Hours: Intake & Output 03/08/24 03/09/24 03/10/24 03/11/24 23:59 23:59 23:59 23:59 Intake Total 1900 / 2380 2190 / 2190 120 / 120 Output Total 0 / 700 850 / 850 900 / 900 1150 / 1150 Balance 0 / -480 1050 / 1530 1290 / 1290 -1030 / -1030 Weight 169 lb 165 lb 12.8 oz 168 lb 7.989 oz 171 lb 12.8 oz Constitutional: Present moderate distress Head: Present normocephalic and atraumatic ENT: Present normal exam, normal oropharynx and mucous membranes moist Neck: Present normal inspection and full ROM Respiratory: Present respiratory distress and able to speak in complete sentences; Absent wheezes or crackles Cardiac: Present S1/S2, Tachycardia and radial pulses present GI: Present soft and distention; Absent tenderness or guarding Skin: Present intact; Absent cyanosis or jaundice Neuro: Present alert, awake and oriented x 3 Extremities: Present normal inspection; Absent clubbing or cyanosis Psychiatric: Present normal affect and cooperative Meds Home Medications and Allergies Home Medications ?Medication ?Instructions ?Recorded ?Confirmed ?Type aspirin 81 mg tablet,delayed 81 mg PO DAILY 08/24/20 03/08/24 History release azelastine 137 mcg (0.1 %) nasal 2 spray intranasal HS 90 days #30 09/11/23 03/08/24 Rx spray mL fluticasone fur. 100 mcg-umeclid 1 inh inhalation DAILY 90 days #90 11/08/23 03/08/24 Rx 62.5 mcg-vilant 25 mcg ea inhalat.powder (Trelegy Ellipta) fluticasone propionate 50 2 spray intranasal DAILY 90 days 11/20/23 03/08/24 Rx mcg/actuation nasal #16 grams spray,suspension (Flonase Allergy Relief) metoprolol succinate 25 mg 25 mg PO HS 11/22/23 03/08/24 History tablet,extended release 24 hr levothyroxine 150 mcg tablet 150 mcg PO DAILY #90 tabs 12/12/23 03/08/24 Rx alfuzosin 10 mg tablet,extended 10 mg PO DAILY 90 days #90 tabs 12/25/23 03/08/24 Rx release 24 hr lovastatin 40 mg tablet 40 mg PO HS 30 days #30 tabs 12/26/23 03/08/24 Rx allopurinol 300 mg tablet 300 mg PO DAILY 90 days #90 tabs 02/01/24 03/08/24 Rx docusate sodium 100 mg tablet 100 mg PO DAILY 03/08/24 03/08/24 History folic acid 1 mg tablet 1 mg PO DAILY 03/08/24 03/08/24 History ondansetron 4 mg disintegrating 4 mg PO Q6H PRN Nausea And Vomiting 03/08/24 03/08/24 History tablet polyethylene glycol 3350 17 17 g PO DAILY PRN Constipation 03/08/24 03/08/24 History gram/dose oral powder (Miralax) famotidine 20 mg tablet 20 mg PO DAILY 03/09/24 03/09/24 History New Prescriptions to Start Prescriptions: Allergies Allergy/AdvReac Type Severity Reaction Status Date / Time No Known Drug Allergies Allergy Unknown Unknown Verified 02/15/24 10:57 [NKDA] allergy reaction Results Laboratory Findings 03/11/24 06:05 03/11/24 06:05 PT/INR, D-dimer PT 11.4 seconds (10.1-12.5) 03/08/24 17:24 INR 1.02 (0.9-1.1) 03/08/24 17:24 D-Dimer 2.40 ug/mL (0.0-0.5) H 03/08/24 17:24 Abnormal lab findings: Abnormal Labs 03/08/24 03/08/24 03/09/24 17:24 17:31 06:28 WBC 2.7 L 2.2 L RBC 3.78 L 3.57 L Hgb 11.9 L 11.4 L Hct 39.3 L 36.5 L MCV 104.0 H 102.1 H MCH 31.5 H 31.9 H MCHC 30.3 L 31.2 L Plt Count 90 L 88 L Gregory % (Auto) 9.4 H Neut # (Auto) 1.6 L 1.2 L D-Dimer 2.40 H Potassium 3.4 L Carbon Dioxide 36 H 39 H Anion Gap 4.5 L Creatinine 0.60 L 0.60 L Glucose 188 H Lactate 2.4 H Calcium AST 69 H NT-Pro-B Natriuret Pep 4430 H Total Protein 6.1 L 5.6 L Albumin 2.9 L D Thyroxine (T4) 17.1 H 03/11/ 06:05 WBC 2.7 L RBC 3.64 L Hgb 11.5 L Hct 38.3 L MCV 105.1 H MCH 31.7 H MCHC 30.1 L Plt Count 107 L Gregory % (Auto) 10.6 H Neut # (Auto) 1.5 L D-Dimer Potassium Carbon Dioxide 37 H Anion Gap 2.7 L Creatinine 0.60 L Glucose Lactate Calcium 8.1 L AST NT-Pro-B Natriuret Pep Total Protein Albumin Thyroxine (T4) Assessment and Plan *Assessment and plan (1) Acute on chronic respiratory failure with hypoxemia: Status: Acute Category: Medical Code(s): J96.21 - Acute and chronic respiratory failure with hypoxia (2) CHF exacerbation: Status: Acute Category: Medical Code(s): I50.9 - Heart failure, unspecified (3) Metastatic malignant neoplasm: Status: Acute Category: Medical Code(s): C79.9 - Secondary malignant neoplasm of unspecified site (4) Pleural effusion on right: Status: Acute Category: Medical Code(s): J90 - Pleural effusion, not elsewhere classified (5) Pneumonia: Status: Acute Qualifiers: Laterality: bilateral Category: Medical Code(s): J18.9 - Pneumonia, unspecified organism Plan Mr. Medeiros is a 76-year-old male history of COPD, lung cancer current chemotherapy on hold secondary leukopenia presented complaining of worsening respiratory distress and tachycardia. Denies any worsening cough/worsening productive phlegm. Subjective fevers or chills. Afebrile. Hemodynamically stable. Leukopenia noted. CTA upon admission evidence of pulmonary embolism. Multiple pulmonary nodules worsening from prior concerning for worsening metastatic disease along with new right pleural effusion. Also noted to have Concerning right upper lobe nodular/cavitary lesion. No evidence of consolidative/airspace disease noted. Noted CT chest findings are medically stable from his most recent CT chest from 02/02/2024, except for slight worsening of the noted right upper lobe nodule. Patient received his home inhaler therapy and Lasix. Auscultation clear breath sounds no evidence of wheezing. Plan: Continue nasal cannula oxygen supplementation maintain O2 saturation of 89% and above, currently on 1 L. For the noted right effusion will schedule outpatient thoracentesis with pleural fluid studies along with cytology Levofloxacin 750 mg daily x 5 days Continue home inhalers including Trelegy 100 Thank you for involving pulmonary in this patient care. Will continue to follow
--- NOTE | 2024-03-11 14:30 | DIET.NUTRFU ---
Spoke to patient and , feel appetite is improving. He has been snacking plus consuming meals. He does report 20# wt loss since Brandan and has been drinking 2 ensure daily at home, will restart
--- NOTE | 2024-03-11 15:07 | P.PN_ITS ---
Subjective Subjective Date: 03/11/24 Time: 08:00 Principal diagnosis: soa, afib rvr Interval history: Rate controlled, morning labs reviewed. Reports feeling good, soa has improved. Exam Data for Last 24 hours Vital signs and Labs for Last 24 Hours: Temp Pulse Resp BP Pulse Ox O2 Del Method O2 Flow Rate 97.8 F 70 18 93/55 L 97 Nasal Cannula 2.5 03/11/24 12:00 03/11/24 12:00 03/11/24 10:00 03/11/24 10:00 03/11/24 10:00 03/11/24 11:00 03/11/24 10:00 Laboratory Results - last 24 hr 03/10/24 07:20: TSH 1.83 D, Free T4 1.77 03/11/24 06:05: WBC 2.7 L, RBC 3.64 L, Hgb 11.5 L, Hct 38.3 L, MCV 105.1 H, MCH 31.7 H, MCHC 30.1 L, RDW 14.3, Plt Count 107 L, MPV 9.0, Neut % (Auto) 53.8, Lymph % (Auto) 28.8, Garrard % (Auto) 10.6 H, Eos % (Auto) 6.3, Baso % (Auto) 0.6, Neut # (Auto) 1.5 L, Lymph # (Auto) 0.8, Garrard # (Auto) 0.3, Eos # (Auto) 0.2, Baso # (Auto) 0.0, Sodium 137, Potassium 3.7, Chloride 101, Carbon Dioxide 37 H, Anion Gap 2.7 L, BUN 11, Creatinine 0.60 L, Estimated Creat Clear 76, Estimated GFR 133, Est GFR ( Amer) 161, Glucose 84, Calcium 8.1 L, Magnesium 1.8 I & O for Last 24 hours: Intake & Output 03/08/24 03/09/24 03/10/24 03/11/24 23:59 23:59 23:59 23:59 Intake Total 1900 / 2380 2190 / 2190 420 / 420 Output Total 0 / 700 850 / 850 900 / 900 1150 / 1150 Balance 0 / -480 1050 / 1530 1290 / 1290 -730 / -730 Weight 169 lb 165 lb 12.8 oz 168 lb 7.989 oz 171 lb 12.8 oz Constitutional Constitutional: no acute distress *Routine Respiratory Exam Respiratory: Present CTA bilaterally and symmetric chest movement *Routine Cardiovascular Exam Cardiovascular: Present Normal S1, Normal S2 and irregular rhythm *Routine Abdominal Exam Abdominal: Present soft and normoactive bowel sounds; Absent tenderness *Routine Extremities Exam Extremities: Present full ROM and normal capillary refill; Absent edema *Routine Skin Exam Skin: Present intact, dry and warm Detailed Neck Exam: Thyroids Thyroid: Absent bruit Progress Note: A&P Assessment and plan (1) Acute on chronic respiratory failure with hypoxemia: Status: Acute (2) CHF exacerbation: Status: Acute (3) Metastatic malignant neoplasm: Status: Acute (4) Pleural effusion on right: Status: Acute (5) Pneumonia: Status: Acute Assessment and Plan Assessment and Plan for All Diagnoses:: Shortness of breath New onset A-fib Volume overload Concern for worsening metastatic disease EKG shows A-fib at a rate of 100 Recently started on steroids Increase metoprolol succinate to 50 mg p.o. nightly Echocardiogram shows an EF of 60%, official read is pending. Decrease Lasix to 20mg po daily No OAC at this time due to low platelets, high bleeding risk. Discussed with family, they are agreeable Pulmonology is following and is managing antibiotics and inhalers. Planning for outpatient thoracentesis with cytology. DC home in 2 week event monitor for afib CAD MAGDY years ago per patient Serial Troponin negative negative for acute changes On aspirin and statin. can continue History of metastatic lung disease Anemia Thrombocytopenia Platelets 88, hemoglobin 11.4 CV summary 03/11/2024: Echo shows an EF of 60. Decrease lasix to 20mg po daily. Patient is CV stable for DC home, please have patient follow up in [facility] clinic in 1-2 weeks. DC home with 2 week event monitor. Continue below listed meds. CV meds: Aspirin 81 mg po daily Metoprolol Succinate 50mg po daily pravastatin Lasix 20mg po daily
--- NOTE | 2024-03-11 16:23 | EXP.DC.SUM ---
General Admission date:: 03/08/24 Discharge date: 03/11/24 HPI HPI HPI: This is a 68-year-old male PMHx of hypertension, hyperlipidemia, CAD status post stenting, AAA, COPD on 2.5 L nasal cannula, stage IV lung cancer s/p chemo and radiation presenting with shortness of breath. Patient states he has been progressively short of breath over the last few days. Worse with exertion, better with rest, not necessarily positional. Patient states that when he gets to walking, his oxygen drops, his heart rate goes up to the 140s and 150s, gets better when resting, no chest pain, vomiting, fevers, chills, cough, or any other concern. Admitted for further treatment. Hospital Course Hospital Course Hospital Course: Patient admitted to hospital complaining of shortness of breath, and diagnosed with new onset A-fib with RVR. Patient had CTA chest done 03/08/2024 showing no pulmonary embolus, but worrisome signs for metastatic disease. Patient started on IV Levaquin, and continued on p.o. Levaquin at time of hospital discharge. Patient seen by cardiology and started on Toprol/Lasix medications. Patient's shortness of breath, RVR improved on beforementioned medications. Patient had echocardiogram done 03/11 showing ejection fraction 55%. Patient subsequently discharged home with outpatient cardiology/PCP follow-up scheduled. Exam Data for Last 24 hours Vital signs and Labs for Last 24 Hours: Temp Pulse Resp BP Pulse Ox O2 Del Method O2 Flow Rate 97.8 F 67 20 91/57 L 98 Nasal Cannula 1 03/11/24 12:00 03/11/24 14:00 03/11/24 14:00 03/11/24 14:00 03/11/24 14:00 03/11/24 15:00 03/11/24 15:00 Laboratory Results - last 24 hr 03/10/24 07:20: TSH 1.83 D, Free T4 1.77 03/11/24 06:05: WBC 2.7 L, RBC 3.64 L, Hgb 11.5 L, Hct 38.3 L, MCV 105.1 H, MCH 31.7 H, MCHC 30.1 L, RDW 14.3, Plt Count 107 L, MPV 9.0, Neut % (Auto) 53.8, Lymph % (Auto) 28.8, Phelps % (Auto) 10.6 H, Eos % (Auto) 6.3, Baso % (Auto) 0.6, Neut # (Auto) 1.5 L, Lymph # (Auto) 0.8, Phelps # (Auto) 0.3, Eos # (Auto) 0.2, Baso # (Auto) 0.0, Sodium 137, Potassium 3.7, Chloride 101, Carbon Dioxide 37 H, Anion Gap 2.7 L, BUN 11, Creatinine 0.60 L, Estimated Creat Clear 76, Estimated GFR 133, Est GFR ( Amer) 161, Glucose 84, Calcium 8.1 L, Magnesium 1.8 I & O for Last 24 hours: Intake & Output 03/08/24 03/09/24 03/10/24 03/11/24 23:59 23:59 23:59 23:59 Intake Total 1900 / 2380 2190 / 2190 420 / 420 Output Total 0 / 700 850 / 850 900 / 900 1150 / 1150 Balance 0 / -480 1050 / 1530 1290 / 1290 -730 / -730 Weight 76.657 kg 75.206 kg 76.43 kg 77.927 kg *Routine HEENT Exam Head: Present normocephalic Eye: Present EOMI and normal accommodation ENT: Present mucous membranes moist *Routine Neck Exam Neck: Present supple and full ROM *Routine Respiratory Exam Respiratory: Present CTA bilaterally and normal respiratory effort *Routine Cardiovascular Exam Cardiovascular: Present RRR, Normal S1 and Normal S2 *Routine Abdominal Exam Abdominal: Present soft and normoactive bowel sounds *Routine Extremities Exam Extremities: Present full ROM and normal capillary refill *Routine Skin Exam Skin: Present intact and dry *Routine Neurological Exam Neurological: Present alert, oriented X3 and CN II-XII intact Results Data Completed and Pending Labs on day of discharge: Labs from last 24 hours 03/11/24 03/10/24 06:05 07:20 WBC 2.7 L RBC 3.64 L Hgb 11.5 L Hct 38.3 L MCV 105.1 H MCH 31.7 H MCHC 30.1 L RDW 14.3 Plt Count 107 L MPV 9.0 Neut % (Auto) 53.8 Lymph % (Auto) 28.8 Phelps % (Auto) 10.6 H Eos % (Auto) 6.3 Baso % (Auto) 0.6 Neut # (Auto) 1.5 L Lymph # (Auto) 0.8 Phelps # (Auto) 0.3 Eos # (Auto) 0.2 Baso # (Auto) 0.0 Sodium 137 Potassium 3.7 Chloride 101 Carbon Dioxide 37 H Anion Gap 2.7 L BUN 11 Creatinine 0.60 L Estimated Creat Clear 76 Estimated GFR 133 Est GFR ( Amer) 161 Glucose 84 Calcium 8.1 L Magnesium 1.8 TSH 1.83 D Free T4 1.77 Impressions Impressions: 03/11/24 echocardiogram: Conclusion This is a limited TTE to evaluate for LVEF and pericardial effusion. Limited windows were obtained. The left ventricle is normal in size. There is increased LV wall thickness. There is normal global LV systolic function. No regional wall motion abnormalities are noted. LVEF is 55%. There is a trivial, anterior pericardial effusion present. No echo indications of tamponade. Compared to prior study from 11/28/2023, there are overall no significant changes. Electronically signed by : Risa Munson MD 03/11/2024 15:44:29 03/08/2024 CTA chest IMPRESSION: 1. No pulmonary emboli. 2. Scattered pulmonary nodules that are either new or enlarging. This is worrisome for progressive metastatic disease. 3. Small to moderate-sized right pleural effusion, new compared to prior study. This could be malignant. 4. Severe coronary arterial calcification, indicating the presence of coronary artery disease. If the patient has associated symptoms, recommend management as per chest pain guidelines. If the patient is asymptomatic, consider reviewing modifiable cardiovascular risk factors and managing as per guidelines for primary prevention. CT CHEST W CON 02/02/2024 11:08 FINDINGS: Lungs: Bibasilar opacities. Mild scarring and atelectasis in the lower lungs. Pleural spaces: Right pleural effusion. Heart/Mediastinum: Unremarkable. No cardiomegaly. Vasculature: Vascular calcifications. Bones/joints: Unremarkable. Exam date and time: 03/08/2024 6:10 PM IMPRESSION: 1. Bibasilar opacities. In correlation with CT, this correlates with chronic scarring and atelectasis. 2. Right pleural effusion. DS: Diagnosis Discharge Diagnosis (1) Acute on chronic respiratory failure with hypoxemia: Status: Acute Code(s): J96.21 - Acute and chronic respiratory failure with hypoxia (2) CHF exacerbation: Status: Acute Code(s): I50.9 - Heart failure, unspecified (3) Metastatic malignant neoplasm: Status: Acute Code(s): C79.9 - Secondary malignant neoplasm of unspecified site (4) Pleural effusion on right: Status: Acute Code(s): J90 - Pleural effusion, not elsewhere classified (5) Pneumonia: Status: Acute Code(s): J18.9 - Pneumonia, unspecified organism Qualifiers: Laterality: bilateral Meds Home Medications and Allergies Home Medications ?Medication ?Instructions ?Recorded ?Confirmed ?Type aspirin 81 mg tablet,delayed 81 mg PO DAILY 08/24/20 03/08/24 History release azelastine 137 mcg (0.1 %) nasal 2 spray intranasal HS 90 days #30 09/11/23 03/08/24 Rx spray mL fluticasone fur. 100 mcg-umeclid 1 inh inhalation DAILY 90 days #90 11/08/23 03/08/24 Rx 62.5 mcg-vilant 25 mcg ea inhalat.powder (Trelegy Ellipta) fluticasone propionate 50 2 spray intranasal DAILY 90 days 11/20/23 03/08/24 Rx mcg/actuation nasal #16 grams spray,suspension (Flonase Allergy Relief) metoprolol succinate 25 mg 25 mg PO HS 11/22/23 03/08/24 History tablet,extended release 24 hr levothyroxine 150 mcg tablet 150 mcg PO DAILY #90 tabs 12/12/23 03/08/24 Rx alfuzosin 10 mg tablet,extended 10 mg PO DAILY 90 days #90 tabs 12/25/23 03/08/24 Rx release 24 hr lovastatin 40 mg tablet 40 mg PO HS 30 days #30 tabs 12/26/23 03/08/24 Rx allopurinol 300 mg tablet 300 mg PO DAILY 90 days #90 tabs 02/01/24 03/08/24 Rx docusate sodium 100 mg tablet 100 mg PO DAILY 03/08/24 03/08/24 History folic acid 1 mg tablet 1 mg PO DAILY 03/08/24 03/08/24 History ondansetron 4 mg disintegrating 4 mg PO Q6H PRN Nausea And Vomiting 03/08/24 03/08/24 History tablet polyethylene glycol 3350 17 17 g PO DAILY PRN Constipation 03/08/24 03/08/24 History gram/dose oral powder (Miralax) famotidine 20 mg tablet 20 mg PO DAILY 03/09/24 03/09/24 History furosemide 20 mg tablet 20 mg PO DAILY #90 tabs 03/11/24 Rx metoprolol succinate 50 mg 50 mg PO HS #90 tabs 03/11/24 Rx tablet,extended release 24 hr (Toprol XL) New Prescriptions to Start Prescriptions: Jayy Humphreys metoprolol succinate [Toprol XL] Jayy Julian Allergies Allergy/AdvReac Type Severity Reaction Status Date / Time No Known Drug Allergies Allergy Unknown Unknown Verified 02/15/24 10:57 [NKDA] allergy reaction Discharge Plan Disposition Patient Disposition: Home, Self-Care Condition: Good Discharge Order Discharge Orders: Discharge Order (Routine); Ordered 03/11/24 Ordered By: Jayy Julian Follow up Plan Follow up with: Miles Márquez MD [Primary Care Provider] - 1 week Rigoberto Meléndez MD [Staff Physician] - 2 weeks Prescriptions/Medication Reconciliation: New metoprolol succinate [Toprol XL] 50 mg Tablet Extended Release 24 Hr 50 mg PO HS Qty: 90 0RF furosemide 20 mg Tablet 20 mg PO DAILY Qty: 90 0RF Continued fluticasone propionate [Flonase Allergy Relief] 50 mcg/actuation spray,suspension 2 spray intranasal DAILY 90 Days Qty: 16 2RF Rx Instructions: administer into each nostril azelastine 137 mcg (0.1 %) aerosol,spray 2 spray intranasal HS 90 Days Qty: 30 2RF Rx Instructions: administer into each nostril levothyroxine 150 mcg tablet 150 mcg PO DAILY Qty: 90 1RF alfuzosin 10 mg tablet extended release 24 hr 10 mg PO DAILY 90 Days Qty: 90 1RF Rx Instructions: administer after the same meal each day Trelegy Ellipta 100-62.5-25 mcg blister with device 1 inh inhalation DAILY 90 Days Qty: 90 3RF lovastatin 40 mg tablet 40 mg PO HS 30 Days Qty: 30 2RF allopurinol 300 mg tablet 300 mg PO DAILY 90 Days Qty: 90 0RF metoprolol succinate 25 mg tablet extended release 24 hr 25 mg PO HS folic acid 1 mg Tablet 1 mg PO DAILY polyethylene glycol 3350 [Miralax] 17 gram/dose Powder 17 g PO DAILY PRN (Reason: Constipation) docusate sodium 100 mg Tablet 100 mg PO DAILY ondansetron 4 mg Tablet,Disintegrating 4 mg PO Q6H PRN (Reason: Nausea And Vomiting) famotidine 20 mg tablet 20 mg PO DAILY aspirin 81 mg tablet,delayed release (DR/EC) 81 mg PO DAILY Problem Reconciliation Problems Reviewed?: Yes Patient Discharge Instructions ACTIVITY: Continue current activity DIET: continue same diet Patient Instructions: Pleural Effusion, DI for Chronic Obstructive Pulmonary Disease, DI for Heart Failure Exacerbations Print Language: Colombian Providers Primary Care Provider: Miles Márquez Admit Provider: Jose Mackey Attending Provider: Jose Mackey
--- NOTE | 2024-03-11 16:52 | PC.NURSE ---
VS stable. Patient weaned to 1LNC. No complaints of sob or chest pain. Patient standby assist to bathroom due to monitors. No changes noted.
--- NOTE | 2024-03-11 17:05 | CA_ITS ---
APPROVED REPORT EXAM: Limited 2D Echocardiogram [employer] Operator: Bebe Sommer CRT Ht: 5 ft 8 in Wt: 168lbs BSA: 1.90 BP: 109/61 mmHg Indications: chf, AAA, LUNG CA IV, POST chemo, radiation, AFIB, EF 55% & trivial pericardial effusion on 11/28/23 echo 2D Dimensions EF AP4 43.10 % GL Strain -12.6 % M-Mode Dimensions RVDd 2.25 cm (0.9-2.6) LVDd 4.54 cm (3.5-5.7) LVDs 2.57 cm (3.5-5.7) IVSd 0.80 cm (0.6-1.1) PWd 1.18 cm (0.6-1.1) EF (Teich) 74.70% FS 43.40% EDV (Teich) 94.40 mL ESV (Teich) 23.90 mL Other Information Study Quality: Fair Conclusion This is a limited TTE to evaluate for LVEF and pericardial effusion. Limited windows were obtained. The left ventricle is normal in size. There is increased LV wall thickness. There is normal global LV systolic function. No regional wall motion abnormalities are noted. LVEF is 55%. There is a trivial, anterior pericardial effusion present. No echo indications of tamponade. Compared to prior study from 11/28/2023, there are overall no significant changes. Electronically signed by : Risa Munson MD 03/11/2024 15:44:29
--- NOTE | 2024-03-13 12:54 | SW/DCPLANNER ---
Hospital follow up phone call: attempted to contact patient x 2 w/ no answer.
== END 2024-03-11 17:43 | DRG 193 ==
LOC: ER 20:10 → 2ND 03-09 05:47
PROVIDERS: Internal Medicine; Nurse Practitioner; Nurse Practitioner Family; Admitting Provider Internal Medicine Adolescent Medicine; Emergency Provider Emergency Medicine; PCP Family Medicine; Visit Provider Internal Medicine Adolescent Medicine
DX: J18.9 Pneumonia, unspecified organism (principal); I50.23 Acute on chronic systolic (congestive) heart failure; J96.21 Acute and chronic respiratory failure with hypoxia; C34.90 Malignant neoplasm of unspecified part of unspecified bronchus or lung; C79.9 Secondary malignant neoplasm of unspecified site; J96.12 Chronic respiratory failure with hypercapnia; D61.818 Other pancytopenia; J44.0 Chronic obstructive pulmonary disease with (acute) lower respiratory infection; Z86.79 Personal history of other diseases of the circulatory system; I48.0 Paroxysmal atrial fibrillation; J43.9 Emphysema, unspecified; E03.9 Hypothyroidism, unspecified; E78.2 Mixed hyperlipidemia; I25.10 Atherosclerotic heart disease of native coronary artery without angina pectoris; Z95.5 Presence of coronary angioplasty implant and graft; Z99.81 Dependence on supplemental oxygen; Z85.820 Personal history of malignant melanoma of skin; Z86.718 Personal history of other venous thrombosis and embolism; I25.2 Old myocardial infarction
CPT/HCPCS: 36415; 71045; 71275; 80048; 80050; 80053; 83605; 83690; 83735; 83880; 84436; 84439; 84443; 84484; 85025; 85378; 85610; 85730; 93005; 93270; 93308; 94640; 99291; J0282; J1650; J1940; J7060; Q9967

== ENCOUNTER 2024-03-15 10:49 | Outpatient (CLI) | payer MEDICARE, MEDICAID, SELFPAY ==
[2024-03-15] VITALS (7 sets, daily range): BP systolic 93–125; BP diastolic 47–69; PULSE 65–69; RESP 16–20; TEMP 36.6; O2SAT 98–100
--- NOTE | 2024-03-15 10:50 | US_ITS ---
FINAL REPORT CLINICAL HISTORY: Rt effusion/Lung Cancer -- LENIN KUMAR -- 450 ML REMOVED FINDINGS: ULTRASOUND GUIDED THORACENTESIS HISTORY: Pleural effusion. ATTENDING PHYSICIAN: Dr. Mitchell PHYSICIAN TRAFFIC ENGINEERING TECHNICIAN: Lenin Mahajan PA-C TECHNIQUE: Informed consent was obtained from the patient. The indications and complications were discussed with the patient prior to beginning the procedure. This included, but was not limited to pain, bleeding, infection, and pneumothorax requiring chest tube placement. The right back was then prepped and draped in sterile fashion. 1% Lidocaine was used for local anesthesia. Utilizing sonographic guidance, a standard thoracentesis needle and sheath were inserted into the pleural space and approximately 450 mL of dark yellow, clear pleural fluid was successfully removed without complication. The patient tolerated the procedure well. IMPRESSION: Technically successful sonographic guided right-sided thoracentesis as above. Films reviewed , interpreted and dictated by Dr. Mitchell. Transcribed by Lenin Mahajan PA-C. Reviewed, Interpreted and Dictated by Selvin Mitchell MD Transcribed by JOSÉ Varghese Authenticated and [facility]
--- NOTE | 2024-03-15 11:41 | XR_ITS ---
FINAL REPORT TECHNIQUE: Chest PA & Lateral CLINICAL HISTORY: POST THORA COMPARISON: 03/08/2024 FINDINGS: 2 views of the chest were performed. The heart size is normal. The mediastinum is within normal limits. The lungs are hyperinflated. There is no acute cardiopulmonary process. The previously noted effusion has decreased in size. There is no pneumothorax. The bony thorax appears intact. IMPRESSION: No pneumothorax post thoracentesis. Reviewed, Interpreted and Dictated by Selvin Mitchell MD Transcribed by Leslie Odom Authenticated and [facility]
== END 2024-03-15 12:52 | disposition home or self-care (01) ==
PROVIDERS: PCP Family Medicine; Visit Provider Internal Medicine Pulmonary Disease
DX: J90 Pleural effusion, not elsewhere classified (principal)
CPT/HCPCS: 32555; 71046

== ENCOUNTER 2024-05-01 10:35 | Outpatient (CLI) | payer MEDICARE, MEDICAID, SELFPAY ==
[2024-05-01 11:34] LABS: Albumin Level 3.7 g/dl (3.5-5.0); Chloride 89 mmol/L (98-107); Sodium 130 mmol/L (136-145)
[2024-05-01 11:36] LABS: Basophils % 1.2 % (0.1-2.0); Eosinophils # 0.1 K/mm3 (0.0-0.4); Hematocrit 38.2 % (42.0-52.0); Hemoglobin 12.7 g/dL (14.1-18.0); Lymphocytes % 36.8 % (10-50); Mean Corpuscular HGB Conc 33.1 g/dL (31.8-35.4); Mean Corpuscular Hemoglobin 31.3 pg (27.0-31.2); Mean Corpuscular Volume 94.4 fl (80-94); Mean Platelet Volume 9.2 fl (7.4-10.4); Monocytes # 0.3 K/mm3 (0.1-1.0); Monocytes % 10.8 % (1.7-9.3); Neutrophils # 1.2 K/mm3 (1.8-7.8); Neutrophils % 47.2 % (37.0-80.0); Platelet Count 89 K/mm3 (142-424); Red Blood Count 4.05 M/mm3 (4.60-6.20); White Blood Count 2.6 K/mm3 (4.8-10.8)
[2024-05-01 11:37] LABS: Alanine Aminotransferase 10 U/L (12-78); Albumin/Globulin Ratio 1.3 (1.1-1.8); Alkaline Phosphatase 59 U/L (38-126); Aspartate Amino Transferase 25 U/L (17-59); Bilirubin,Total 0.6 mg/dl (0.2-1.3); Blood Urea Nitrogen 7 mg/dl (9-20); Calcium 8.7 mg/dl (8.4-10.2); Estimated Glomerular Filt Rate 133 ml/min (>60); GFR (African American) 161 ML/MIN (>60); Globulin 2.9 g/dL (1.3-3.2); Glucose 82 mg/dl (74-100); Total Protein,Serum 6.6 g/dl (6.3-8.2)
[2024-05-01 11:44] LABS: Carbon Dioxide 35 mmol/L (22.0-30.0)
--- NOTE | 2024-05-01 14:35 | PC.NURSE ---
1050 - BLOOD DRAWN USING BUTTERFLY NEEDLE TO CHECK CBC, CMP PRIOR TO DR JUDIE BARGER.
== END 2024-05-01 10:55 | disposition home or self-care (01) ==
LOC: INF 10:36
PROVIDERS: PCP Family Medicine; Visit Provider Internal Medicine Medical Oncology
DX: C34.90 Malignant neoplasm of unspecified part of unspecified bronchus or lung (principal)
CPT/HCPCS: 36415; 80053; 85025

== ENCOUNTER 2024-05-11 05:10 | Inpatient (IN) | payer MEDICARE, MEDICAID, SELFPAY ==
[2024-05-11] VITALS (56 sets, daily range): BP systolic 58–143; BP diastolic 37–86; PULSE 59–129; RESP 12–30; TEMP 36.4–40.2; O2SAT 92–99; BMI 22.9; BMI 22.8; BMI 24.0
--- NOTE | 2024-05-11 05:03 | XR_ITS ---
PROCEDURE INFORMATION: Exam: XR Chest Exam date and time: 05/11/2024 5:32 AM Age: 68 years old Clinical indication: Cough and dyspnea; Additional info: SOA, wheezing, cough TECHNIQUE: Imaging protocol: Radiologic exam of the chest. Views: 1 view. COMPARISON: CR XR CHEST 2V 03/15/2024 11:47 AM FINDINGS: Lungs: Right basilar opacities. Pleural spaces: Blunting of the right costophrenic angle consistent with effusion. Heart/Mediastinum: Rightward deviation of the mediastinum indicating volume loss. Vasculature: Atherosclerotic disease of the aortic arch. Bones/joints: Diffuse degenerative change of the visualized osseous structures. IMPRESSION: Right pleural effusion with atelectasis/volume loss given rightward mediastinal shift. cannot entirely exclude infection. Correlate clinically.
--- NOTE | 2024-05-11 05:08 | CT_ITS ---
PROCEDURE INFORMATION: Exam: CT Head Without Contrast Exam date and time: 05/11/2024 5:34 AM Age: 68 years old Clinical indication: Altered mental status/memory loss; Additional info: AMS sepsis TECHNIQUE: Imaging protocol: Computed tomography of the head without contrast. Radiation optimization: All CT scans at this facility use at least one of these dose optimization techniques: automated exposure control; mA and/or kV adjustment per patient size (includes targeted exams where dose is matched to clinical indication); or iterative reconstruction. COMPARISON: MR HEAD/BRAIN WO/W CON 02/29/2024 9:12 AM FINDINGS: Brain: Chronic gyral involution changes of age. Intracranial calcified atherosclerotic disease. Mild periventricular white matter hypoattenuation, nonspecific, however likely related to chronic microangiopathic change. Pineal gland calcifications. Cerebral ventricles: Choroid plexus calcifications. Paranasal sinuses: Visualized sinuses are unremarkable. No fluid levels. Mastoid air cells: Visualized mastoid air cells are well aerated. Bones: Unremarkable. No acute fracture. Soft tissues: Unremarkable. IMPRESSION: No acute intracranial findings.
--- NOTE | 2024-05-11 05:12 | HMH.EDGENADL ---
Discharge Plan Disposition Patient Disposition: Admitted Condition: Critical Clinical Impressions Clinical Impression: Septic shock, Non-ST elevation [place] (NSTEMI), Pleural effusion, Atrial fibrillation with rapid ventricular response Discharge ED Provider: Mike Da Silva Adult HPI <Mike Da Silva MD - Last Filed: 05/11/24 07:46> General Chief complaint: Weakness Stated complaint: SOA, hypoxia, GCS 10, Fever, Weakness Time Seen by Provider: 05/11/24 05:10 History of Present Illness HPI narrative: 68-year-old male with a history of lung cancer, CHF, COPD on 2 L nasal cannula at home presents to the ER for complaints of generalized weakness, altered mental status. Reportedly patient got up 2 hours prior to arrival to use the restroom and felt more weak than normal diffusely. He went back to bed and family checked on him later noting that he was not responding to them as well as normal. They stated he felt very hot to the touch. EMS reports his temperature was 100.1, he was not hypoglycemic, he was hypoxic, they stated they appreciated Rales and expiratory wheezing. They administered 2 DuoNebs and 125 mg IV Solu-Medrol prior to arrival with reported improvement in patient's respiratory status. EMS gave a GCS score of 10 stating he would not talk to them, however on arrival in the ER he is speaking, it is just soft and difficult to hear through the mask they had on him. Patient denies any pain, he is able to tell me his name, but states he does not know where he currently is. He is moving all extremities equally and following commands. Patient denies any chest pain, states he no longer has any difficulty breathing, he denies headache, numbness, tingling, states he does feel weak all over, denies painful urination or blood in the urine. Additional ROS also negative. Related Data Home Medications ?Medication ?Instructions ?Recorded ?Confirmed aspirin 81 mg tablet,delayed 81 mg PO DAILY 08/24/20 05/01/24 release docusate sodium 100 mg tablet 100 mg PO DAILY 03/08/24 05/01/24 folic acid 1 mg tablet 1 mg PO DAILY 03/08/24 05/01/24 ondansetron 4 mg disintegrating 4 mg PO Q6H PRN Nausea And Vomiting 03/08/24 05/01/24 tablet polyethylene glycol 3350 17 17 g PO DAILY PRN Constipation 03/08/24 05/01/24 gram/dose oral powder (Miralax) famotidine 20 mg tablet 20 mg PO DAILY 03/09/24 05/01/24 furosemide 20 mg tablet 20 mg PO DAILY PRN 05/01/24 05/01/24 Previous Rx's ?Medication ?Instructions ?Recorded azelastine 137 mcg (0.1 %) nasal 2 spray intranasal HS 90 days #30 09/11/23 spray mL fluticasone propionate 50 2 spray intranasal DAILY 90 days 11/20/23 mcg/actuation nasal #16 grams spray,suspension (Flonase Allergy Relief) levothyroxine 150 mcg tablet 150 mcg PO DAILY #90 tabs 12/12/23 alfuzosin 10 mg tablet,extended 10 mg PO DAILY 90 days #90 tabs 12/25/23 release 24 hr metoprolol succinate 50 mg 50 mg PO HS #90 tabs 03/11/24 tablet,extended release 24 hr (Toprol XL) lovastatin 40 mg tablet 40 mg PO HS 30 days #30 tabs 03/25/24 fluticasone fur. 100 mcg-umeclid 1 inh inhalation DAILY 90 days #90 03/27/24 62.5 mcg-vilant 25 mcg ea inhalat.powder (Trelegy Ellipta) allopurinol 300 mg tablet 300 mg PO DAILY 90 days #90 tabs 05/10/24 Allergies Allergy/AdvReac Type Severity Reaction Status Date / Time No Known Drug Allergies Allergy Unknown Unknown Verified 05/11/24 08:19 [NKDA] allergy reaction [facility] <Mike Da Silva MD - Last Filed: 05/11/24 07:46> [facility] Disclaimer: The information contained in this section may have been updated after the patient was seen, as this information can be updated by other users. Medical History Radiation esophagitis Esophageal stricture Pleural effusion on right Acute respiratory failure with hypoxia Acute hypercapnic respiratory failure Acute exacerbation of chronic obstructive pulmonary disease Acute hypoxic on chronic hypercapnic respiratory failure COPD (chronic obstructive pulmonary disease) Olecranon bursitis of right elbow Elbow mass Swelling Hilar lymphadenopathy Allergic rhinitis History of lung or bronchial cancer Mediastinal lymphadenopathy History of esophageal dilatation Sinusitis Gynecomastia Discharge from left nipple PAF (paroxysmal atrial fibrillation) COPD (chronic obstructive pulmonary disease) Dyspnea on exertion Malignant neoplasm of unspecified part of unspecified bronchus or lung Pulmonary emphysema Smoking greater than 30 pack years Lung nodule Tobacco abuse counseling HAP (hospital-acquired pneumonia) Influenza A Acute on chronic respiratory failure with hypoxia and hypercapnia Urinary tract infection Tobacco abuse AAA (abdominal aortic aneurysm) Melanoma Thyroid disease Sinus problem History of radiation therapy History of chemotherapy Cataract Myocardial infarction Lung disease DVT (deep venous thrombosis) Cancer lung Atherosclerotic heart disease Hypotension HLD (hyperlipidemia) Abnormal EKG CAD (coronary artery disease) CHF (congestive heart failure) Gout Tobacco abuse disorder Hypertension Hypothyroidism COPD exacerbation Surgical History H/O melanoma excision History of heart artery stent History of cardiac cath History of colonoscopy Family History Other AAA (abdominal aortic aneurysm) Coronary artery disease Gout Heart attack Hypertension Social History Smoking Status: Former smoker tobacco type: cigarettes packs per day: 1 alcohol intake: former substance use type: denies use 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ional status: retired and disabled Travel in the last 8 weeks: None household members: spouse housing: house lives independently: No marital status: education level: high school service: No long-term: No caffeine: No special honey needs: No agree to transfusion: No do you feel safe at home: Yes victim of physical abuse: No victim of emotional abuse: No victim of sexual abuse: No would you like helpful sources: No Other Medical History Have you received the Flu Vaccine for this season: No Have you received the Pneumonia Vaccine: Yes <Mike Da Silva MD - Last Filed: 05/11/24 07:46> ROS Obtained: Yes All systems reviewed & no additional complaints except as documented Positive ROS per HPI Physical Exam <Mike Da Silva MD - Last Filed: 05/11/24 07:46> General General appearance: alert Comment: Chronically ill-appearing, not in acute distress Head Head exam: atraumatic and normocephalic Eye Eye exam: Present PERRL and EOMI ENT ENT exam: Present normal oropharynx and mucous membranes moist Neck Neck exam: Present normal inspection and full ROM Chest Chest inspection: Present symmetric chest wall rise; Absent tenderness Respiratory Respiratory exam: Present other (Saturating 92% on 5 L nasal cannula); Absent normal lung sounds bilaterally (Patient has mild tachypnea as well as rales appreciated in the right lower lung), respiratory distress, wheezes, stridor or prolonged expiratory phase Cardiovascular Cardiovascular exam: Present normal rhythm and tachycardia Abdominal Exam Abdominal exam: Present soft; Absent distention, tenderness, guarding or rebound Extremities Exam Extremities exam: Present full ROM; Absent tenderness, normal capillary refill (Capillary refill 2 to 3 seconds), edema or joint swelling Neurological Exam Neurological exam: Present alert; Absent oriented X3 (Oriented to self but not to location or year) or motor sensory deficit (Follows commands in all extremities, equal strength in all extremities, equal sensation in all extremities, no localizing deficits) Expanded Neurological Exam Coma scale eye opening: Spontaneous Coma scale motor response: Obeys commands Coma scale verbal response: Confused Coma scale total: 14 Psychiatric Psychiatric exam: Present normal affect and normal mood Skin Skin exam: Present warm and dry <Chris Mendoza MD - Last Filed: 05/11/24 08:42> Expanded Neurological Exam Coma scale total: 14 Medical Decision Making <Mike Da Silva MD - Last Filed: 05/11/24 07:46> Medical Records Medical records reviewed: Yes I reviewed the patient's medical records. Screening: Per USPSTF and CDC recommendations, given the prevalence of disease in our region, it is our hospital?s policy to screen for HIV and viral Hepatitis for all patients aged 18 and over and those with ongoing risk factors. MR Comment: Considered though it is less likely, also considered most recent cardiology progress note from 05/01/2024 demonstrates patient had a 2-week event monitor abnormal sinus rhythm, SVT, NSVT, asymptomatic. Family at that time was reporting poor appetite. Plan was to continue current medications and return to clinic in 3 months. Patient was admitted in February with shortness of breath, patient was treated with IV Lasix, had findings of fluid overload, and right sided pleural effusion. He did end up having an outpatient thoracentesis. Lanre Inquiry Pt receiving controlled substance: No Vital Signs: 05/11/24 05:26 05/11/24 05:56 05/11/24 05:57 Temperature 104.4 F H Temperature Source Rectal Pulse Rate 110 H 121 H Pulse Rate [Left Radial] 111 H Respiratory Rate 16 30 H 21 Blood Pressure 65/43 L 75/45 L Blood Pressure [Right Radial Artery] 90/56 L Blood Pressure Mean Blood Pressure Mean [Right Radial Artery] 67 Blood Pressure Source [Right Radial Artery] Automatic Cuff Blood Pressure Position [Right Radial Artery] Sitting 02 Sat by Pulse Oximetry 94 L 92 L 92 L Oxygen Delivery Method Nasal Cannula Oxygen Flow Rate (LPM) 5 05/11/24 06:00 05/11/24 06:08 05/11/24 06:10 Temperature Temperature Source Pulse Rate 124 H 123 H 121 H Pulse Rate [Left Radial] Respiratory Rate 18 18 12 Blood Pressure 72/46 L 73/49 L 80/48 L Blood Pressure [Right Radial Artery] Blood Pressure Mean Blood Pressure Mean [Right Radial Artery] Blood Pressure Source [Right Radial Artery] Blood Pressure Position [Right Radial Artery] 02 Sat by Pulse Oximetry 92 L 94 L 94 L Oxygen Delivery Method Oxygen Flow Rate (LPM) 05/11/24 06:11 05/11/24 06:16 05/11/24 06:30 Temperature Temperature Source Pulse Rate 129 H 117 H 126 H Pulse Rate [Left Radial] Respiratory Rate 20 14 24 Blood Pressure 85/49 L 75/51 L 90/61 L Blood Pressure [Right Radial Artery] Blood Pressure Mean Blood Pressure Mean [Right Radial Artery] Blood Pressure Source [Right Radial Artery] Blood Pressure Position [Right Radial Artery] 02 Sat by Pulse Oximetry 94 L 94 L 92 L Oxygen Delivery Method Oxygen Flow Rate (LPM) 05/11/24 06:40 05/11/24 07:00 05/11/24 07:29 Temperature 101.1 F H Temperature Source Rectal Pulse Rate 87 100 H Pulse Rate [Left Radial] Respiratory Rate 15 26 H Blood Pressure 80/47 L 92/66 L Blood Pressure [Right Radial Artery] Blood Pressure Mean Blood Pressure Mean [Right Radial Artery] Blood Pressure Source [Right Radial Artery] Blood Pressure Position [Right Radial Artery] 02 Sat by Pulse Oximetry 92 L 95 Oxygen Delivery Method Oxygen Flow Rate (LPM) 05/11/24 07:30 05/11/24 08:00 05/11/24 08:30 Temperature Temperature Source Pulse Rate 112 H 110 H 102 H Pulse Rate [Left Radial] Respiratory Rate 20 22 18 Blood Pressure 101/67 L 103/71 L 94/63 L Blood Pressure [Right Radial Artery] Blood Pressure Mean 75 74 Blood Pressure Mean [Right Radial Artery] Blood Pressure Source [Right Radial Artery] Blood Pressure Position [Right Radial Artery] 02 Sat by Pulse Oximetry 95 95 97 Oxygen Delivery Method Oxygen Flow Rate (LPM) Lab Data Lab Results 05/11/24 05:11: VBG pH 7.36, VBG pCO2 67.1 H, VBG pO2 118.6 H, VBG HCO3 36.9 H, VBG Total CO2 38.9 H, VBG O2 Saturation 98.4 H, VBG Base Excess 11.4 H, VBG Lactic Acid 1.2 05/11/24 05:15: WBC 2.0 L, RBC 3.90 L, Hgb 12.2 L, Hct 36.4 L, MCV 93.3, MCH 31.3 H, MCHC 33.6, RDW 15.2, Plt Count 66 L, MPV 9.2, Neut % (Auto) 76.1, Lymph % (Auto) 11.8, Stanton % (Auto) 9.4 H, Eos % (Auto) 1.4, Baso % (Auto) 1.3, Neut # (Auto) 1.6 L, Lymph # (Auto) 0.2 L, Stanton # (Auto) 0.2, Eos # (Auto) 0.0, Baso # (Auto) 0.0, PT 13.1 H, INR 1.19 H, APTT 26.5 L, Sodium 128 L, Potassium 4.5, Chloride 88 L, Carbon Dioxide 36 H, Anion Gap 8.5, BUN 13, Creatinine 0.60 L, Estimated Creat Clear 75, Estimated GFR 133, Est GFR ( Amer) 161, Glucose 138 H, Lactate 0.8, Calcium 8.2 L, Total Bilirubin 0.8, AST 24, ALT 10 L, Alkaline Phosphatase 56, Troponin I 0.88 H, NT-Pro-B Natriuret Pep 1750 H, Total Protein 5.5 L, Albumin 3.2 L, Globulin 2.3, Albumin/Globulin Ratio 1.4, HIV 1&2 Antibody Rapid Nonreactive 05/11/24 05:15 05/11/24 05:15 Orders (Tests/Meds): ED MEDICATIONS Generic Name Dose Route Start Last Admin Trade Name Freq PRN Reason Stop Dose Admin Acetaminophen 650 mg 05/11/24 07:37 Acetaminophen 325mg Tab PO 06/10/24 07:36 Q4HP PRN Fever or Mild Pain (1-3) Diltiazem HCl 100 mg/ Sodium 100 mls @ 5 mls/hr 05/11/24 06:09 05/11/24 07:24 Chloride IV 06/10/24 06:08 2.5 mg/hr .Q20H TITO 2.5 mls/hr Titration Protocol 5 MG/HR Norepinephrine/Dextrose 8 mg in 250 mls @ 15 mls/hr 05/11/24 06:10 05/11/24 06:30 Norepinephrine 8mg/250ml-D5w Premix IV 06/10/24 06:09 30 mcg/min .[id number] TITO 56.25 mls/hr Titration Protocol 8 MCG/MIN Vasopressin 40 unit/ Sodium 102 mls @ 1.53 mls/hr 05/11/24 06:50 05/11/24 07:00 Chloride IV 06/10/24 06:49 0.04 units/min .Q24H TITO 6.12 mls/hr Titration Protocol 0.01 UNITS/MIN Heparin Sodium/Dextrose 500 mls @ 18 mls/hr 05/11/24 07:15 05/11/24 08:11 Heparin 25,000 Units In D5w 500ml Premix IV 06/10/24 07:14 18 mls/hr .Q25H TITO Administration 900 UNITS/HR Sodium Chloride 10 ml 05/11/24 07:23 05/11/24 07:26 Sodium Chloride 0.9% 10ml Syr (Rad Only) IV 06/10/24 07:22 10 ml NEEDED PRN Administration Maintain IV Site Discontinued Medications Generic Name Dose Route Start Last Admin Trade Name Freq PRN Reason Stop Dose Admin Acetaminophen 1,000 mg 05/11/24 05:19 05/11/24 05:19 Acetaminophen 1,000mg/100ml Vial IV 05/11/24 05:20 1,000 mg ONCE ONE Administration Diltiazem HCl 20 mg 05/11/24 06:32 05/11/24 06:32 Diltiazem 25mg/5ml Vial IV 05/11/24 06:33 20 mg ONCE ONE Administration Heparin Sodium (Porcine) 4,000 unit 05/11/24 07:15 05/11/24 08:10 Heparin Sodium 5,000 Unit/Ml Vial IV 05/11/24 07:16 4,000 unit ONCE ONE Administration Lactated Ringer's 1,500 mls @ 999 mls/hr 05/11/24 05:08 05/11/24 05:40 Lactated Ringer's 1000 Ml Bag IV 05/11/24 06:38 999 mls/hr .Q1H31M ONE Administration Piperacillin Sod/Tazobactam 100 mls @ 200 mls/hr 05/11/24 05:10 05/11/24 06:00 Sod 4.5 gm/ Sodium Chloride IV 05/11/24 05:39 200 mls/hr ONCE ONE Administration Vancomycin/PEG/NADA/Lysine/Water 1.25 gm in 250 mls @ 125 mls/hr 05/11/24 05:30 Vancomycin 1.25gm/250ml (Peg) Premix IV 05/11/24 07:29 ONCE ONE Iopamidol 70 ml 05/11/24 07:23 05/11/24 07:26 Iopamidol-370 (76%);100ml Bottle IV 05/11/24 07:24 70 ml ONCE ONE Administration Ketorolac Tromethamine 15 mg 05/11/24 07:29 05/11/24 07:33 Ketorolac 30mg/Ml Vial IV 05/11/24 07:30 15 mg ONCE ONE Administration Miscellaneous 1 each 05/11/24 05:15 Vancomycin Consult Request NOTAPPLIC 06/10/24 05:14 CONSULT [facility]Y [facility] Miscellaneous 1 each 05/11/24 06:30 Heparin Drip Consult NOTAPPLIC 06/10/24 06:29 CONSULT [facility] Sodium Chloride 50 ml 05/11/24 07:23 05/11/24 07:26 0.9 % Sodium Chloride 50 Ml Vial IV 05/11/24 07:24 50 ml ONCE ONE Administration ORDERS Category Date Time Status CT angio chest PE protocol Stat Cat Scan 05/11/24 05:[address] head/brain wo con Stat Cat Scan 05/11/24 05:08 Completed CXR --portable [XR chest portable] Stat Exams 05/11/24 05:03 Completed BNP [NT Pro Brain Natriuretic Pep.] Stat Lab 05/11/24 05:15 Completed Complete Blood Count Auto Diff AMLAB Lab 05/12/24 06:00 Ordered Complete Blood Count Auto Diff Routine Lab 05/11/24 17:00 Ordered Complete Blood Count Auto Diff Stat Lab 05/11/24 05:15 Completed Comprehensive Metabolic Panel AMLAB Lab 05/12/24 06:00 Ordered Comprehensive Metabolic Panel Routine Lab 05/11/24 17:00 Ordered Comprehensive Metabolic Panel Stat Lab 05/11/24 05:15 Completed Full Resp Panel w/COVID ([facility]) Routine Lab 05/11/24 06:45 Received HIV (1&2) Antibody Rapid Stat Lab 05/11/24 05:15 Completed Hep C Ab with Reflex to RNA Stat Lab 05/11/24 05:15 Received Heparin drip PTT [PTT Heparin (inpatient only)] Stat Lab 05/11/24 05:15 Completed Heparin drip PTT [PTT Heparin (inpatient only)] Stat Lab 05/11/24 13:30 Ordered Lactic Acid Stat Lab 05/11/24 05:15 Completed Magnesium AMLAB Lab 05/12/24 06:00 Ordered Prothrombin Time INR Stat Lab 05/11/24 05:15 Completed Trop I [Troponin I] Stat Lab 05/11/24 05:15 Completed Troponin I Q3H Lab 05/11/24 08:30 Ordered Troponin I Q3H Lab 05/11/24 11:30 Ordered Urinalysis and Microscopic Stat Lab 05/11/24 05:03 Ordered Blood Culture Stat Micro 05/11/24 05:54 Received VBG [Venous Blood Gas] Stat RT 05/11/24 05:11 Completed ECG Request Stat Y 05/11/24 05:54 Ordered Tissue Perfus/Sepsis Re-Eval Sepsis Re-Evaluation Performed: Yes Date Performed: 05/11/24 Time Performed: 07:14 Medical Decision Narrative: In summary, this 68-year-old male with multiple comorbidities as outlined in the HPI presents to the emergency department today with concerns of altered mental status, hypoxia. On initial evaluation patient is tachycardic, hypotensive with systolic of 90, requiring 5 L nasal cannula up from his baseline need of 2 L nasal cannula, and febrile to 104.4. Patient has rales in the right lung base, no wheezing, he is tachypneic, abdomen is soft, nontender, nondistended, patient is a GCS of 14, slightly confused, no localizing neurologic deficits, no peripheral edema, remainder of exam benign. Differential diagnosis includes but is not limited to sepsis, pneumonia, urinary tract infection, lactic acidosis, electrolyte abnormality, I considered ACS though I have low suspicion since patient does not have chest pain, he will still receive a cardiac workup. Given patient's history of cancer I also considered possibility of intracranial mass. No evidence of stroke since there are no localizing deficits though this was initially considered with the report of altered mental status and weakness. Patient does meet sepsis criteria, with his history of CHF he is not going to receive a full 30 mL/kg bolus at this time, starting with 1.5 L of LR. I ordered broad-spectrum antibiotics. Patient has already received IV steroids and DuoNebs for wheezing from EMS, I do not appreciate any wheezing at this time. Serum labs, CT head, chest x-ray, urine studies, cardiac workup have all been ordered. ECG personally interpreted demonstrates sinus tachycardia, rate 110, right axis deviation, right bundle branch block, poor R wave progression, no STEMI. Patient received IV fluids, broad-spectrum antibiotics, IV acetaminophen initially for treatment. Labs personally reviewed demonstrate leukopenia with WBC 2.0, decreased from prior though he does have a history of leukopenia, anemia with hemoglobin 12.2, not significantly changed from previous, thrombocytopenia with platelets 66, worsened from prior, hyponatremia with sodium 128, hypochloremia, patient exhibited mild hyponatremia earlier this month. presented to bedside. She added that patient received his influenza vaccine 1 day ago. She also states patient has not been on his furosemide recently, stating he is supposed to do daily weights and if his weight increases by 5 pounds to take one of the pills. She states he has not needed 1 recently. Additional labs resulted demonstrating good kidney function, PT/INR slightly elevated, VBG with normal pH, mild hypercarbia, lactic normal at 1.2 on VBG, 0.8 on chemistry. BNP is elevated at 1750, improved from February but worse than November. XR personally interpreted demonstrates moderate right-sided pleural effusion, there is also associated mild opacity of the right lower lung atelectasis versus infection. Clinically more likely to be infection. See radiology read. CT imaging personally interpreted demonstrate no acute intracranial abnormality, I do not appreciate mass or bleed, no midline shift. See radiology read. After CT and x-ray, lab called with a critical result that patient's troponin is 0.88. Since he is hypoxic, tachycardic, hypotensive he is going back to CT scan for a CTA PE emergently. Given patient's overall clinical presentation, it is more likely that his vitals changes are related to infection and that his troponin elevation is demand related, likely NSTEMI. Patient is not having chest pain and has no ECG changes. Repeat ECG ordered. Before going to CT, patient's blood pressure continued to decrease, he is receiving pressure bagged fluids, 2 L total. Norepinephrine started. I am placing an arterial line. Repeat ECG demonstrates atrial fibrillation with RVR, rate 128, right axis deviation, right bundle branch block, no dynamic changes, no STEMI. I consulted cardiology for patient's elevated troponin. I discussed this case at length with Dr. Meléndez including patient obviously being in septic shock, but also having the elevated troponin. He recommends diltiazem bolus and drip, we discussed norepinephrine versus Rayshawn-Synephrine. After discussion, Dr. Meléndez agrees with diltiazem, norepinephrine. He also recommends heparin 50 units/kg bolus and drip. I discussed my concern of thrombocytopenia with platelets of 66 at this time. I told Dr. Meléndez I was worried about heparin potentially causing HIT, he stated since the patient has no history of heparin-induced thrombocytopenia and has platelets above 50 to go ahead and heparinize the patient. Orders as discussed with Dr. Meléndez have been placed. I placed an arterial line, see procedure note for details. Patient's heart rate responded well to diltiazem bolus, diltiazem drip has been started. Unfortunately his blood pressure did initially go down after diltiazem was given, it is improving. Vasopressin started. Capillary refill improving. Patient is finally stable enough to go to CT for PE scan. I personally interpreted CT PE and do not appreciate large PE, patient does have right pleural effusion as well as changes within the lung parenchyma concerning for infection. Radiology read pending. Patient's blood pressure is still hovering with a MAP of 65. Diltiazem drip was reduced to 2.5 from 5 since his rate is currently controlled, this reduction will also help fully help improve his blood pressure. Patient is mentating better and appears better overall. I did approach the subject of CODE STATUS with , she is unsure at this time, she did states she does not think patient would want any machines, however she has not yet made a decision. She would like to proceed with full code until she and her daughter have time to talk. I discussed this case with Dr. Mcakey the hospitalist. We reviewed his labs, imaging, history, recommendations from cardiology, and current clinical status. Patient has been accepted for admission. <Chris Mendoza MD - Last Filed: 05/11/24 08:42> Vital Signs: 05/11/24 05:26 05/11/24 05:56 05/11/24 05:57 Temperature 104.4 F H Temperature Source Rectal Pulse Rate 110 H 121 H Pulse Rate [Left Radial] 111 H Respiratory Rate 16 30 H 21 Blood Pressure 65/43 L 75/45 L Blood Pressure [Right Radial Artery] 90/56 L Blood Pressure Mean Blood Pressure Mean [Right Radial Artery] 67 Blood Pressure Source [Right Radial Artery] Automatic Cuff Blood Pressure Position [Right Radial Artery] Sitting 02 Sat by Pulse Oximetry 94 L 92 L 92 L Oxygen Delivery Method Nasal Cannula Oxygen Flow Rate (LPM) 5 05/11/24 06:00 05/11/24 06:08 05/11/24 06:10 Temperature Temperature Source Pulse Rate 124 H 123 H 121 H Pulse Rate [Left Radial] Respiratory Rate 18 18 12 Blood Pressure 72/46 L 73/49 L 80/48 L Blood Pressure [Right Radial Artery] Blood Pressure Mean Blood Pressure Mean [Right Radial Artery] Blood Pressure Source [Right Radial Artery] Blood Pressure Position [Right Radial Artery] 02 Sat by Pulse Oximetry 92 L 94 L 94 L Oxygen Delivery Method Oxygen Flow Rate (LPM) 05/11/24 06:11 05/11/24 06:16 05/11/24 06:30 Temperature Temperature Source Pulse Rate 129 H 117 H 126 H Pulse Rate [Left Radial] Respiratory Rate 20 14 24 Blood Pressure 85/49 L 75/51 L 90/61 L Blood Pressure [Right Radial Artery] Blood Pressure Mean Blood Pressure Mean [Right Radial Artery] Blood Pressure Source [Right Radial Artery] Blood Pressure Position [Right Radial Artery] 02 Sat by Pulse Oximetry 94 L 94 L 92 L Oxygen Delivery Method Oxygen Flow Rate (LPM) 05/11/24 06:40 05/11/24 07:00 05/11/24 07:29 Temperature 101.1 F H Temperature Source Rectal Pulse Rate 87 100 H Pulse Rate [Left Radial] Respiratory Rate 15 26 H Blood Pressure 80/47 L 92/66 L Blood Pressure [Right Radial Artery] Blood Pressure Mean Blood Pressure Mean [Right Radial Artery] Blood Pressure Source [Right Radial Artery] Blood Pressure Position [Right Radial Artery] 02 Sat by Pulse Oximetry 92 L 95 Oxygen Delivery Method Oxygen Flow Rate (LPM) 05/11/24 07:30 05/11/24 08:00 05/11/24 08:30 Temperature Temperature Source Pulse Rate 112 H 110 H 102 H Pulse Rate [Left Radial] Respiratory Rate 20 22 18 Blood Pressure 101/67 L 103/71 L 94/63 L Blood Pressure [Right Radial Artery] Blood Pressure Mean 75 74 Blood Pressure Mean [Right Radial Artery] Blood Pressure Source [Right Radial Artery] Blood Pressure Position [Right Radial Artery] 02 Sat by Pulse Oximetry 95 95 97 Oxygen Delivery Method Oxygen Flow Rate (LPM) Lab Data Lab Results 05/11/24 05:11: VBG pH 7.36, VBG pCO2 67.1 H, VBG pO2 118.6 H, VBG HCO3 36.9 H, VBG Total CO2 38.9 H, VBG O2 Saturation 98.4 H, VBG Base Excess 11.4 H, VBG Lactic Acid 1.2 05/11/24 05:15: WBC 2.0 L, RBC 3.90 L, Hgb 12.2 L, Hct 36.4 L, MCV 93.3, MCH 31.3 H, MCHC 33.6, RDW 15.2, Plt Count 66 L, MPV 9.2, Neut % (Auto) 76.1, Lymph % (Auto) 11.8, Stanton % (Auto) 9.4 H, Eos % (Auto) 1.4, Baso % (Auto) 1.3, Neut # (Auto) 1.6 L, Lymph # (Auto) 0.2 L, Stanton # (Auto) 0.2, Eos # (Auto) 0.0, Baso # (Auto) 0.0, PT 13.1 H, INR 1.19 H, APTT 26.5 L, Sodium 128 L, Potassium 4.5, Chloride 88 L, Carbon Dioxide 36 H, Anion Gap 8.5, BUN 13, Creatinine 0.60 L, Estimated Creat Clear 75, Estimated GFR 133, Est GFR ( Amer) 161, Glucose 138 H, Lactate 0.8, Calcium 8.2 L, Total Bilirubin 0.8, AST 24, ALT 10 L, Alkaline Phosphatase 56, Troponin I 0.88 H, NT-Pro-B Natriuret Pep 1750 H, Total Protein 5.5 L, Albumin 3.2 L, Globulin 2.3, Albumin/Globulin Ratio 1.4, HIV 1&2 Antibody Rapid Nonreactive Orders (Tests/Meds): ED MEDICATIONS Generic Name Dose Route Start Last Admin Trade Name Tyrese PRN Reason Stop Dose Admin Acetaminophen 650 mg 05/11/24 07:37 Acetaminophen 325mg Tab PO 06/10/24 07:36 Q4HP PRN Fever or Mild Pain (1-3) Diltiazem HCl 100 mg/ Sodium 100 mls @ 5 mls/hr 05/11/24 06:09 05/11/24 07:24 Chloride IV 06/10/24 06:08 2.5 mg/hr .Q20H TITO 2.5 mls/hr Titration Protocol 5 MG/HR Norepinephrine/Dextrose 8 mg in 250 mls @ 15 mls/hr 05/11/24 06:10 05/11/24 06:30 Norepinephrine 8mg/250ml-D5w Premix IV 06/10/24 06:09 30 mcg/min .[id number] TITO 56.25 mls/hr Titration Protocol 8 MCG/MIN Vasopressin 40 unit/ Sodium 102 mls @ 1.53 mls/hr 05/11/24 06:50 05/11/24 07:00 Chloride IV 06/10/24 06:49 0.04 units/min .Q24H TITO 6.12 mls/hr Titration Protocol 0.01 UNITS/MIN Heparin Sodium/Dextrose 500 mls @ 18 mls/hr 05/11/24 07:15 05/11/24 08:11 Heparin 25,000 Units In D5w 500ml Premix IV 06/10/24 07:14 18 mls/hr .Q25H TITO Administration 900 UNITS/HR Sodium Chloride 10 ml 05/11/24 07:23 05/11/24 07:26 Sodium Chloride 0.9% 10ml Syr (Rad Only) IV 06/10/24 07:22 10 ml NEEDED PRN Administration Maintain IV Site Discontinued Medications Generic Name Dose Route Start Last Admin Trade Name Freelle PRN Reason Stop Dose Admin Acetaminophen 1,000 mg 05/11/24 05:19 05/11/24 05:19 Acetaminophen 1,000mg/100ml Vial IV 05/11/24 05:20 1,000 mg ONCE ONE Administration Diltiazem HCl 20 mg 05/11/24 06:32 05/11/24 06:32 Diltiazem 25mg/5ml Vial IV 05/11/24 06:33 20 mg ONCE ONE Administration Heparin Sodium (Porcine) 4,000 unit 05/11/24 07:15 05/11/24 08:10 Heparin Sodium 5,000 Unit/Ml Vial IV 05/11/24 07:16 4,000 unit ONCE ONE Administration Lactated Ringer's 1,500 mls @ 999 mls/hr 05/11/24 05:08 05/11/24 05:40 Lactated Ringer's 1000 Ml Bag IV 05/11/24 06:38 999 mls/hr .Q1H31M ONE Administration Piperacillin Sod/Tazobactam 100 mls @ 200 mls/hr 05/11/24 05:10 05/11/24 06:00 Sod 4.5 gm/ Sodium Chloride IV 05/11/24 05:39 200 mls/hr ONCE ONE Administration Vancomycin/PEG/NADA/Lysine/Water 1.25 gm in 250 mls @ 125 mls/hr 05/11/24 05:30 Vancomycin 1.25gm/250ml (Peg) Premix IV 05/11/24 07:29 ONCE ONE Iopamidol 70 ml 05/11/24 07:23 05/11/24 07:26 Iopamidol-370 (76%);100ml Bottle IV 05/11/24 07:24 70 ml ONCE ONE Administration Ketorolac Tromethamine 15 mg 05/11/24 07:29 05/11/24 07:33 Ketorolac 30mg/Ml Vial IV 05/11/24 07:30 15 mg ONCE ONE Administration Miscellaneous 1 each 05/11/24 05:15 Vancomycin Consult Request NOTAPPLIC 06/10/24 05:14 CON[facility]ULT [facility] Miscellaneous 1 each 05/11/24 06:30 Heparin Drip Consult NOTAPPLIC 06/10/24 06:29 CON[facility] Sodium Chloride 50 ml 05/11/24 07:23 05/11/24 07:26 0.9 % Sodium Chloride 50 Ml Vial IV 05/11/24 07:24 50 ml ONCE ONE Administration ORDERS Category Date Time Status CT angio chest PE protocol Stat Cat Scan 05/11/24 05:[address] head/brain wo con Stat Cat Scan 05/11/24 05:08 Completed CXR --portable [XR chest portable] Stat Exams 05/11/24 05:03 Completed BNP [NT Pro Brain Natriuretic Pep.] Stat Lab 05/11/24 05:15 Completed Complete Blood Count Auto Diff AMLAB Lab 05/12/24 06:00 Ordered Complete Blood Count Auto Diff Routine Lab 05/11/24 17:00 Ordered Complete Blood Count Auto Diff Stat Lab 05/11/24 05:15 Completed Comprehensive Metabolic Panel AMLAB Lab 05/12/24 06:00 Ordered Comprehensive Metabolic Panel Routine Lab 05/11/24 17:00 Ordered Comprehensive Metabolic Panel Stat Lab 05/11/24 05:15 Completed Full Resp Panel w/COVID (H) Routine Lab 05/11/24 06:45 Received HIV (1&2) Antibody Rapid Stat Lab 05/11/24 05:15 Completed Hep C Ab with Reflex to RNA Stat Lab 05/11/24 05:15 Received Heparin drip PTT [PTT Heparin (inpatient only)] Stat Lab 05/11/24 05:15 Completed Heparin drip PTT [PTT Heparin (inpatient only)] Stat Lab 05/11/24 13:30 Ordered Lactic Acid Stat Lab 05/11/24 05:15 Completed Magnesium AMLAB Lab 05/12/24 06:00 Ordered Prothrombin Time INR Stat Lab 05/11/24 05:15 Completed Trop I [Troponin I] Stat Lab 05/11/24 05:15 Completed Troponin I Q3H Lab 05/11/24 08:30 Ordered Troponin I Q3H Lab 05/11/24 11:30 Ordered Urinalysis and Microscopic Stat Lab 05/11/24 05:03 Ordered Blood Culture Stat Micro 05/11/24 05:54 Received VBG [Venous Blood Gas] Stat RT 05/11/24 05:11 Completed ECG Request Stat Y 05/11/24 05:54 Ordered Medical Decision Narrative: In summary, this 68-year-old male with multiple comorbidities as outlined in the HPI presents to the emergency department today with concerns of altered mental status, hypoxia. On initial evaluation patient is tachycardic, hypotensive with systolic of 90, requiring 5 L nasal cannula up from his baseline need of 2 L nasal cannula, and febrile to 104.4. Patient has rales in the right lung base, no wheezing, he is tachypneic, abdomen is soft, nontender, nondistended, patient is a GCS of 14, slightly confused, no localizing neurologic deficits, no peripheral edema, remainder of exam benign. Differential diagnosis includes but is not limited to sepsis, pneumonia, urinary tract infection, lactic acidosis, electrolyte abnormality, I considered ACS though I have low suspicion since patient does not have chest pain, he will still receive a cardiac workup. Given patient's history of cancer I also considered possibility of intracranial mass. No evidence of stroke since there are no localizing deficits though this was initially considered with the report of altered mental status and weakness. Patient does meet sepsis criteria, with his history of CHF he is not going to receive a full 30 mL/kg bolus at this time, starting with 1.5 L of LR. I ordered broad-spectrum antibiotics. Patient has already received IV steroids and DuoNebs for wheezing from EMS, I do not appreciate any wheezing at this time. Serum labs, CT head, chest x-ray, urine studies, cardiac workup have all been ordered. ECG personally interpreted demonstrates sinus tachycardia, rate 110, right axis deviation, right bundle branch block, poor R wave progression, no STEMI. Patient received IV fluids, broad-spectrum antibiotics, IV acetaminophen initially for treatment. Labs personally reviewed demonstrate leukopenia with WBC 2.0, decreased from prior though he does have a history of leukopenia, anemia with hemoglobin 12.2, not significantly changed from previous, thrombocytopenia with platelets 66, worsened from prior, hyponatremia with sodium 128, hypochloremia, patient exhibited mild hyponatremia earlier this month. presented to bedside. She added that patient received his influenza vaccine 1 day ago. She also states patient has not been on his furosemide recently, stating he is supposed to do daily weights and if his weight increases by 5 pounds to take one of the pills. She states he has not needed 1 recently. Additional labs resulted demonstrating good kidney function, PT/INR slightly elevated, VBG with normal pH, mild hypercarbia, lactic normal at 1.2 on VBG, 0.8 on chemistry. BNP is elevated at 1750, improved from February but worse than November. XR personally interpreted demonstrates moderate right-sided pleural effusion, there is also associated mild opacity of the right lower lung atelectasis versus infection. Clinically more likely to be infection. See radiology read. CT imaging personally interpreted demonstrate no acute intracranial abnormality, I do not appreciate mass or bleed, no midline shift. See radiology read. After CT and x-ray, lab called with a critical result that patient's troponin is 0.88. Since he is hypoxic, tachycardic, hypotensive he is going back to CT scan for a CTA PE emergently. Given patient's overall clinical presentation, it is more likely that his vitals changes are related to infection and that his troponin elevation is demand related, likely NSTEMI. Patient is not having chest pain and has no ECG changes. Repeat ECG ordered. Before going to CT, patient's blood pressure continued to decrease, he is receiving pressure bagged fluids, 2 L total. Norepinephrine started. I am placing an arterial line. Repeat ECG demonstrates atrial fibrillation with RVR, rate 128, right axis deviation, right bundle branch block, no dynamic changes, no STEMI. I consulted cardiology for patient's elevated troponin. I discussed this case at length with Dr. Meléndez including patient obviously being in septic shock, but also having the elevated troponin. He recommends diltiazem bolus and drip, we discussed norepinephrine versus Rayshawn-Synephrine. After discussion, Dr. Meléndez agrees with diltiazem, norepinephrine. He also recommends heparin 50 units/kg bolus and drip. I discussed my concern of thrombocytopenia with platelets of 66 at this time. I told Dr. Meléndez I was worried about heparin potentially causing HIT, he stated since the patient has no history of heparin-induced thrombocytopenia and has platelets above 50 to go ahead and heparinize the patient. Orders as discussed with Dr. Meléndez have been placed. I placed an arterial line, see procedure note for details. Patient's heart rate responded well to diltiazem bolus, diltiazem drip has been started. Unfortunately his blood pressure did initially go down after diltiazem was given, it is improving. Vasopressin started. Capillary refill improving. Patient is finally stable enough to go to CT for PE scan. I personally interpreted CT PE and do not appreciate large PE, patient does have right pleural effusion as well as changes within the lung parenchyma concerning for infection. Radiology read pending. Patient's blood pressure is still hovering with a MAP of 65. Diltiazem drip was reduced to 2.5 from 5 since his rate is currently controlled, this reduction will also help fully help improve his blood pressure. Patient is mentating better and appears better overall. I did approach the subject of CODE STATUS with , she is unsure at this time, she did states she does not think patient would want any machines, however she has not yet made a decision. She would like to proceed with full code until she and her daughter have time to talk. I discussed this case with Dr. Mackey the hospitalist. We reviewed his labs, imaging, history, recommendations from cardiology, and current clinical status. Patient has been accepted for admission. Mendoza: Patient's and daughter now at bedside. I had a conversation with him at bedside about CODE STATUS. They discussed that patient would not want his ribs broken or chest compressions and would not like machines to help him breathe. I discussed with family and confirmed that at this time patient's wishes would be that he is DO NOT RESUSCITATE and DO NOT INTUBATE. Procedures <Mike Da Silva MD - Last Filed: 05/11/24 07:46> Risk/Benefits of Procedure(s) Were Explained: Yes (to , she provided verbal consent) Arterial Line Time Out Performed: Yes Size (Gauge): 20 Technique Used: guide wire technique Post-Procedure: line sutured into place Patient Tolerated Procedure: well Complications: none Site: left and radial Additional Comments: 20-gauge left radial arterial line placed under ultrasound guidance on the first attempt. Line sutured into place and also secured with Tegaderm. Strong tracing on the monitor. Neurovascularly intact after procedure. Critical Care <Mike Da Silva MD - Last Filed: 05/11/24 07:46> Critical Care Time Critical Care Time: Yes Attestation: On 05/11/24, the high probability of a clinically significant, sudden or life threatening deterioration of the following system(s) (cardiac, neuro, respiratory)required my full and direct attention, intervention and personal management. The time I documented below is in addition to time spent performing reported procedures but includes the following listed in this critical care notation. Total Time Total Critical Care Time: 65
--- NOTE | 2024-05-11 05:13 | ECG_ITS ---
APPROVED REPORT Exam: Resting ECG HR:110 bpm ECG Measurements Heart Rate 110 AXES NJ 149 P 68 QRSd 114 QRS 253 QT 311 T 78 QTc 376 Conclusion SINUS TACHYCARDIA RIGHT AXIS DEVIATION [QRS AXIS > 100] PATTERN CONSISTENT WITH PULMONARY DISEASE RIGHT BUNDLE BRANCH BLOCK [120+ ms QRS DURATION, UPRIGHT V1, 40+ ms S IN I/aVL/V4/V5/V6] No STEMI Electronically signed by : JENNY ROSS, 05/12/2024 03:15:06
[2024-05-11] MEDS: ACETAMINOPHEN 1,000MG/100ML VIAL 1000 MG IV (05:19)
[2024-05-11 05:30] LABS: Albumin Level 3.2 g/dl (3.5-5.0); Basophils % 1.3 % (0.1-2.0); Chloride 88 mmol/L (98-107); Eosinophils % 1.4 % (0.1-12.0); Hematocrit 36.4 % (42.0-52.0); Hemoglobin 12.2 g/dL (14.1-18.0); Lymphocytes # 0.2 K/mm3 (0.7-4.5); Lymphocytes % 11.8 % (10-50); Mean Corpuscular HGB Conc 33.6 g/dL (31.8-35.4); Mean Corpuscular Hemoglobin 31.3 pg (27.0-31.2); Mean Corpuscular Volume 93.3 fl (80-94); Mean Platelet Volume 9.2 fl (7.4-10.4); Monocytes # 0.2 K/mm3 (0.1-1.0); Monocytes % 9.4 % (1.7-9.3); Neutrophils # 1.6 K/mm3 (1.8-7.8); Neutrophils % 76.1 % (37.0-80.0); Platelet Count 66 K/mm3 (142-424); Red Cell Distribution Width 15.2 % (11.5-17.5)
[2024-05-11 05:31] LABS: Potassium 4.5 mmoL/L (3.5-5.1); Sodium 128 mmol/L (136-145)
[2024-05-11 05:33] LABS: Alanine Aminotransferase 10 U/L (12-78); Aspartate Amino Transferase 24 U/L (17-59); Blood Urea Nitrogen 13 mg/dl (9-20); Creatinine Clearance Estimated 75 mL/min (50-200); Estimated Glomerular Filt Rate 133 ml/min (>60); GFR (African American) 161 ML/MIN (>60)
[2024-05-11 05:34] LABS: Albumin/Globulin Ratio 1.4 (1.1-1.8); Alkaline Phosphatase 56 U/L (38-126); Bilirubin,Total 0.8 mg/dl (0.2-1.3); Calcium 8.2 mg/dl (8.4-10.2); Globulin 2.3 g/dL (1.3-3.2); Glucose 138 mg/dl (74-100); Total Protein,Serum 5.5 g/dl (6.3-8.2)
[2024-05-11] MEDS: LACTATED RINGERS 1000ML 1,500 ML 999 ML IV (05:40)
[2024-05-11 05:41] LABS: Lactate Venous 1.2 mmol/L (0.4-2.0); VBG Base Excess 11.4 mmol/L (-2.4-2.3); VBG HCO3 36.9 mmol/L (23-30); VBG Oxygen Saturation 98.4 % (50-70); VBG PCO2 67.1 mmol/L (35-51); VBG PH 7.36 mmol/L (7.31-7.41); VBG PO2 118.6 mmol/L (28-40); VBG Total CO2 38.9 mmol/L (23-27)
[2024-05-11 05:41] LABS: Anion Gap 8.5 mEq/L (5-15); Carbon Dioxide 36 mmol/L (22.0-30.0)
[2024-05-11 05:42] LABS: NT Pro Brain Natriuretic Pep. 1750 pg/mL (0-125)
[2024-05-11 05:43] LABS: Lactic Acid 0.8 mmol/L (0.7-2.1)
[2024-05-11 05:45] LABS: INR 1.19 (0.9-1.1); Prothrombin Time 13.1 seconds (10.1-12.5)
[2024-05-11 05:49] LABS: Troponin I 0.88 ng/ml (0.00-0.034)
--- NOTE | 2024-05-11 05:50 | CT_ITS ---
PROCEDURE INFORMATION: Exam: CTA Chest With Contrast Exam date and time: 05/11/2024 6:38 AM Age: 68 years old Clinical indication: Other: Hypoxia, hypotension; Additional info: SOA hypoxia hypotension elevated trop. TECHNIQUE: Imaging protocol: Computed tomographic angiography of the chest with contrast. Exam focused on the arteries. 3D rendering (Not supervised by radiologist): MIP and/or 3D reconstructed images were created by the technologist. Radiation optimization: All CT scans at this facility use at least one of these dose optimization techniques: automated exposure control; mA and/or kV adjustment per patient size (includes targeted exams where dose is matched to clinical indication); or iterative reconstruction. Contrast material: ISOVUE 370; Contrast volume: 70 ml; Contrast route: INTRAVENOUS (IV); COMPARISON: CT ANGIO CHEST PE PROTOCOL 03/08/2024 6:13 PM FINDINGS: Pulmonary arteries: Normal. No pulmonary emboli. Aorta: Heavy calcified and noncalcified atherosclerotic disease of the visualized aorta extending into its major branches. Lungs: Diffuse septal thickening. COPD changes. Increasing from prior comparison is a round nodule measuring 12.2 x 13.5 mm (series 8, image 105), in the superior anterior segment of the left lower lobe. Nonspecific predominantly peripheral and left lower lobe base pleural-parenchymal nodularity. Essentially stable right upper lobe peripheral anterior spiculated nodule with subpleural tenting. Pleural spaces: Right pleural effusion with associated right lower lobe atelectasis. Heart: Unremarkable. No cardiomegaly. No pericardial effusion. Coronary arteries: Heavy coronary calcified atherosclerotic disease. Lymph nodes: Prominent bilateral hilar and mediastinal lymph nodes, appear to have increased from prior comparison. Bones/joints: Unremarkable. No acute fracture. Soft tissues: Unremarkable. IMPRESSION: 1. No pulmonary embolus. 2. Superior segment anterior left lower lobe round nodule which has increased in size from prior comparison concerning for neoplasm. Recommend pulmonary consultation. 3. Nonspecific increase in hilar and mediastinal lymph nodes, difficult to exclude possible involvement in enlarging left lower lobe neoplasm. Again recommend pulmonary consultation. 4. Right pleural effusion with diffuse septal thickening which can be seen in setting of CHF. Correlate clinically.
--- NOTE | 2024-05-11 05:54 | ECG_ITS ---
APPROVED REPORT Exam: Resting ECG HR:128 bpm ECG Measurements Heart Rate 128 AXES QRSd 118 QRS 254 QT 306 T 88 QTc 382 Conclusion ATRIAL FIBRILLATION WITH RAPID VENTRICULAR RESPONSE RIGHT AXIS DEVIATION [QRS AXIS > 100] PATTERN CONSISTENT WITH PULMONARY DISEASE RIGHT BUNDLE BRANCH BLOCK [120+ ms QRS DURATION, UPRIGHT V1, 40+ ms S IN I/aVL/V4/V5/V6] No dynamic ischemic changes, no STEMI Electronically signed by : JENNY ROSS, 05/12/2024 03:15:39
--- NOTE | 2024-05-11 05:59 | PC.NURSE ---
Dr. Da Silva notified of critical troponin
[2024-05-11] MEDS: PIPERACILLIN/TAZO 4.5 GM in 0.9 % SODIUM CHLORIDE 100 ML IV (06:00)
--- NOTE | 2024-05-11 06:00 | PC.NURSE ---
Dr. Da Silva is preparing to place art line, tubing and set up being completed
[2024-05-11] MEDS: NOREPINEPHRINE BITARTRATE/D5W 8 MG/250 ML PLAST..BAG 15 MG IV (06:10)
[2024-05-11 06:23] LABS: HIV (1&2) Antibody Rapid NONREACTIVE (NONREACTIVE)
[2024-05-11] MEDS: dilTIAZem HCL 100 MG in 0.9 % SODIUM CHLORIDE 100 ML IV (06:32)
[2024-05-11] MEDS: dilTIAZem 25MG/5ML VIAL 20 MG IV (06:32)
[2024-05-11] MEDS: VASOPRESSIN 40 UNIT in 0.9 % SODIUM CHLORIDE 100 ML 4.59 UNIT IV (06:50)
[2024-05-11 06:51] LABS: Adenovirus,PCR Not Detected (NotDetected); Bordetella Pertussis Not Detected (NotDetected); Chlamydophila Pneumoniae, PCR Not Detected (NotDetected); Coronavirus 19, PCR Not Detected (NotDetected); Coronavirus 229E Not Detected (NotDetected); Coronavirus NL63 Not Detected (NotDetected); Coronavirus OC43 Not Detected (NotDetected); Coronovirus HKU1,PCR Not Detected (NotDetected); Human Metapneumovirus Not Detected (NotDetected); Influenza A, PCR Not Detected (NotDetected); Influenza AH1, 2009 Not Detected (NotDetected); Influenza AH1, PCR Not Detected (NotDetected); Influenza AH3,PCR Not Detected (NotDetected); Influenza B, PCR Not Detected (NotDetected); Mycoplasma Pneumoniae, PCR Not Detected (NotDetected); Parainfluenza 1, PCR Not Detected (NotDetected); Parainfluenza 2, PCR Not Detected (NotDetected); Parainfluenza 3, PCR Not Detected (NotDetected); Parainfluenza 4, PCR Not Detected (NotDetected); Respiratory Syncytial Virus Not Detected (NotDetected); Rhinovirus/Enterovirus Not Detected (NotDetected)
[2024-05-11 06:58] LABS: PTT Heparin (inpatient only) 26.5 Seconds (50-75)
[2024-05-11] MEDS: SODIUM CHLORIDE 0.9% 10ML SYR (RAD ONLY) 10 ML IV (07:26)
[2024-05-11] MEDS: 0.9 % SODIUM CHLORIDE 50 ML VIAL IV (07:26)
[2024-05-11] MEDS: IOPAMIDOL-370 (76%);100ML BOTTLE 70 ML IV (07:26)
--- NOTE | 2024-05-11 07:31 | PC.NURSE ---
speaking with Dr Gustafson
[2024-05-11] MEDS: KETOROLAC 30MG/ML VIAL 15 MG IV (07:33)
--- NOTE | 2024-05-11 07:38 | PC.NURSE ---
Per Filiberto in lab they state they can't find either set of blood cultures.
--- NOTE | 2024-05-11 07:39 | EXP.HP ---
History of Present Illness *Admission Date: 05/11/24 *Reason for visit:: weakness and confusion *History of present illness: Mr. Medeiros is a 68-year-old male with history of metastatic lung cancer, CHF, COPD on 2 to 3 L nasal cannula at baseline who presented to the ER with complaint of weakness and altered mental status. He woke up this morning to go to the bathroom and felt more weak and was slightly confused. When family checked on him shortly thereafter, he was not responding to them. Of note, patient reports receiving his flu shot yesterday. When patient was unresponsive, he was warm to touch. EMS was called for assistance. On arrival, patient was noted to have a temperature of 100.1. Hypoxic. Noted to have Rales and wheeze. Administer DuoNebs along with Solu-Medrol and transported him to the ER for further management. Initial GCS of 10 upon EMS evaluation. On arrival to the ER, patient found to be in septic shock with tachycardia, leukopenia with white count of 2, hypotension not responsive to fluid bolus necessitating vasopressors. Increased oxygen requirement of 6 L. Medicine consulted for admission to ICU and further management of septic shock. Chest imaging with CT concerning for effusion that is recurrent and likely malignant along with pneumonia in right lung. On arrival to the floor, patient remains hypotensive with MAP in the 50s. He is alert and interactive. Answering questions somewhat, does not recall coming to the hospital. Is disoriented to time but knows who he is and that he is at the hospital. Says he is breathing a little bit better on 6 L. Still febrile. Temperature of 104 in the ER, improved to 101. Currently on norepinephrine, vasopressin, initiating phenylephrine due to persistent hypotension. Finishing sepsis bolus with an additional 500 cc of normal saline. [facility] Disclaimer: The information contained in this section may have been updated after the patient was seen, as this information can be updated by other users. Medical History Radiation esophagitis Esophageal stricture Pleural effusion on right Acute respiratory failure with hypoxia Acute hypercapnic respiratory failure Acute exacerbation of chronic obstructive pulmonary disease Acute hypoxic on chronic hypercapnic respiratory failure COPD (chronic obstructive pulmonary disease) Olecranon bursitis of right elbow Elbow mass Swelling Hilar lymphadenopathy Allergic rhinitis History of lung or bronchial cancer Mediastinal lymphadenopathy History of esophageal dilatation Sinusitis Gynecomastia Discharge from left nipple PAF (paroxysmal atrial fibrillation) COPD (chronic obstructive pulmonary disease) Dyspnea on exertion Malignant neoplasm of unspecified part of unspecified bronchus or lung Pulmonary emphysema Smoking greater than 30 pack years Lung nodule Tobacco abuse counseling HAP (hospital-acquired pneumonia) Influenza A Acute on chronic respiratory failure with hypoxia and hypercapnia Urinary tract infection Tobacco abuse AAA (abdominal aortic aneurysm) Melanoma Thyroid disease Sinus problem History of radiation therapy History of chemotherapy Cataract Myocardial infarction Lung disease DVT (deep venous thrombosis) Cancer Atherosclerotic heart disease Hypotension HLD (hyperlipidemia) Abnormal EKG CAD (coronary artery disease) CHF (congestive heart failure) Gout Tobacco abuse disorder Hypertension Hypothyroidism COPD exacerbation Surgical History H/O melanoma excision History of heart artery stent History of cardiac cath History of colonoscopy Family History Other AAA (abdominal aortic aneurysm) Coronary artery disease Gout Heart attack Hypertension Social History Smoking Status: Current every day smoker tobacco type: cigarettes packs per day: 1 alcohol intake: former substance use type: denies use 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ional status: retired and disabled Travel in the last 8 weeks: None household members: spouse housing: house lives independently: No marital status: education level: high school service: No shelter: No caffeine: No special honey needs: No agree to transfusion: No do you feel safe at home: Yes victim of physical abuse: No victim of emotional abuse: No victim of sexual abuse: No would you like helpful sources: No Other Medical History Have you received the Flu Vaccine for this season: No Have you received the Pneumonia Vaccine: Yes Review of Systems Review of Systems Review of systems (narrative): 14 point review of systems performed, pertinent positives and negatives as per HPI Meds Home Medications and Allergies Home Medications ?Medication ?Instructions ?Recorded ?Confirmed ?Type aspirin 81 mg tablet,delayed 81 mg PO DAILY 08/24/20 05/01/24 History release azelastine 137 mcg (0.1 %) nasal 2 spray intranasal HS 90 days #30 09/11/23 05/01/24 Rx spray mL fluticasone propionate 50 2 spray intranasal DAILY 90 days 11/20/23 05/01/24 Rx mcg/actuation nasal #16 grams spray,suspension (Flonase Allergy Relief) levothyroxine 150 mcg tablet 150 mcg PO DAILY #90 tabs 12/12/23 05/01/24 Rx alfuzosin 10 mg tablet,extended 10 mg PO DAILY 90 days #90 tabs 12/25/23 05/01/24 Rx release 24 hr docusate sodium 100 mg tablet 100 mg PO DAILY 03/08/24 05/01/24 History folic acid 1 mg tablet 1 mg PO DAILY 03/08/24 05/01/24 History ondansetron 4 mg disintegrating 4 mg PO Q6H PRN Nausea And Vomiting 03/08/24 05/01/24 History tablet polyethylene glycol 3350 17 17 g PO DAILY PRN Constipation 03/08/24 05/01/24 History gram/dose oral powder (Miralax) famotidine 20 mg tablet 20 mg PO DAILY 03/09/24 05/01/24 History metoprolol succinate 50 mg 50 mg PO HS #90 tabs 03/11/24 05/01/24 Rx tablet,extended release 24 hr (Toprol XL) lovastatin 40 mg tablet 40 mg PO HS 30 days #30 tabs 03/25/24 05/01/24 Rx fluticasone fur. 100 mcg-umeclid 1 inh inhalation DAILY 90 days #90 03/27/24 05/01/24 Rx 62.5 mcg-vilant 25 mcg ea inhalat.powder (Trelegy Ellipta) furosemide 20 mg tablet 20 mg PO DAILY PRN 05/01/24 05/01/24 History allopurinol 300 mg tablet 300 mg PO DAILY 90 days #90 tabs 05/10/24 Rx New Prescriptions to Start Prescriptions: Allergies Allergy/AdvReac Type Severity Reaction Status Date / Time No Known Drug Allergies Allergy Unknown Unknown Verified 05/11/24 08:19 [NKDA] allergy reaction Exam Data for Last 24 hours Vital signs and Labs for Last 24 Hours: Temp Pulse Resp BP Pulse Ox O2 Del Method O2 Flow Rate 101.1 F H 112 H 20 101/67 L 95 Nasal Cannula 5 05/11/24 07:29 05/11/24 07:30 05/11/24 07:30 05/11/24 07:30 05/11/24 07:30 05/11/24 05:26 05/11/24 05:26 Laboratory Results - last 24 hr 05/11/24 05:11: VBG pH 7.36, VBG pCO2 67.1 H, VBG pO2 118.6 H, VBG HCO3 36.9 H, VBG Total CO2 38.9 H, VBG O2 Saturation 98.4 H, VBG Base Excess 11.4 H, VBG Lactic Acid 1.2 05/11/24 05:15: WBC 2.0 L, RBC 3.90 L, Hgb 12.2 L, Hct 36.4 L, MCV 93.3, MCH 31.3 H, MCHC 33.6, RDW 15.2, Plt Count 66 L, MPV 9.2, Neut % (Auto) 76.1, Lymph % (Auto) 11.8, [place] % (Auto) 9.4 H, Eos % (Auto) 1.4, Baso % (Auto) 1.3, Neut # (Auto) 1.6 L, Lymph # (Auto) 0.2 L, [place] # (Auto) 0.2, Eos # (Auto) 0.0, Baso # (Auto) 0.0, PT 13.1 H, INR 1.19 H, APTT 26.5 L, Sodium 128 L, Potassium 4.5, Chloride 88 L, Carbon Dioxide 36 H, Anion Gap 8.5, BUN 13, Creatinine 0.60 L, Estimated Creat Clear 75, Estimated GFR 133, Est GFR ( Amer) 161, Glucose 138 H, Lactate 0.8, Calcium 8.2 L, Total Bilirubin 0.8, AST 24, ALT 10 L, Alkaline Phosphatase 56, Troponin I 0.88 H, NT-Pro-B Natriuret Pep 1750 H, Total Protein 5.5 L, Albumin 3.2 L, Globulin 2.3, Albumin/Globulin Ratio 1.4, HIV 1&2 Antibody Rapid Nonreactive I & O for Last 24 hours: Intake & Output 05/08/24 05/09/24 05/10/24 05/11/24 23:59 23:59 23:59 23:59 Intake Total 16.973 / 16.973 Balance 16.973 / 16.973 Weight 76.657 kg Constitutional Constitutional: moderate distress, thin, chronically ill appearing and cooperative *Routine HEENT Exam Head: Present normocephalic and atraumatic Eye: Present EOMI and PERRL ENT: Present mucous membranes dry *Routine Neck Exam Neck: Present supple and full ROM *Routine Respiratory Exam Respiratory: Present accessory muscle use, decreased breath sounds, wheezes (anterior) and crackles (Right lower lung field); Absent respiratory distress or rhonchi *Routine Cardiovascular Exam Cardiovascular: Present tachycardia and irregularly irregular *Routine Abdominal Exam Abdominal: Present soft and normoactive bowel sounds; Absent tenderness *Routine Rectal Exam Rectal:: deferred *Routine Genitalia Exam Genitalia:: deferred *Routine Extremities Exam Extremities: Present pallor; Absent cyanosis, clubbing or edema *Routine Skin Exam Skin: Present intact; Absent erythema *Routine Neurological Exam Neurological: Present alert, altered mental status and moving all extremities Assessment and Plan *Assessment and plan (1) Septic shock: Status: Acute Category: Medical Code(s): A41.9 - Sepsis, unspecified organism; R65.21 - Severe sepsis with septic shock (2) Acute on chronic respiratory failure with hypoxia and hypercapnia: Status: Chronic Category: Medical Code(s): J96.21 - Acute and chronic respiratory failure with hypoxia; J96.22 - Acute and chronic respiratory failure with hypercapnia (3) Pneumonia: Status: Acute Qualifiers: Laterality: bilateral Category: Medical Code(s): J18.9 - Pneumonia, unspecified organism (4) Neutropenia: Status: Acute Category: Medical Code(s): D70.9 - Neutropenia, unspecified (5) Thrombocytopenia: Status: Acute Category: Medical Code(s): D69.6 - Thrombocytopenia, unspecified (6) Non-ST elevated myocardial infarction (non-STEMI): Status: Acute Category: Medical Code(s): I21.4 - Non-ST elevation (NSTEMI) myocardial infarction (7) Metastatic malignant neoplasm: Status: Acute Category: Medical Code(s): C79.9 - Secondary malignant neoplasm of unspecified site (8) Pleural effusion on right: Status: Acute Category: Medical Code(s): J90 - Pleural effusion, not elsewhere classified (9) BPH (benign prostatic hyperplasia): Status: Acute Category: Medical Code(s): N40.0 - Benign prostatic hyperplasia without lower urinary tract symptoms (10) Malignant neoplasm of lung: Status: Acute Qualifiers: Laterality: unspecified laterality Lung location: overlapping sites Qualified Code(s): C34.80 - Malignant neoplasm of overlapping sites of unspecified bronchus and lung Category: Medical Code(s): C34.90 - Malignant neoplasm of unspecified part of unspecified bronchus or lung (11) PAF (paroxysmal atrial fibrillation): Status: Acute Category: Medical Code(s): I48.0 - Paroxysmal atrial fibrillation (12) COPD (chronic obstructive pulmonary disease): Status: Chronic Qualifiers: COPD type: emphysema Emphysema type: unspecified Qualified Code(s): J43.9 - Emphysema, unspecified Category: Medical Code(s): J44.9 - Chronic obstructive pulmonary disease, unspecified (13) CHF (congestive heart failure): Status: Chronic Qualifiers: Heart failure chronicity: chronic Heart failure type: diastolic Qualified Code(s): I50.32 - Chronic diastolic (congestive) heart failure Category: Medical Code(s): I50.9 - Heart failure, unspecified (14) CAD (coronary artery disease): Status: Chronic Qualifiers: Associated angina: without angina Coronary Disease-Associated Artery/Lesion type: [place] artery [place] vs. transplanted heart: [place] heart Qualified Code(s): I25.10 - Atherosclerotic heart disease of [place] coronary artery without angina pectoris Category: Medical Code(s): I25.10 - Atherosclerotic heart disease of [place] coronary artery without angina pectoris (15) HLD (hyperlipidemia): Status: Chronic Qualifiers: Hyperlipidemia type: mixed hyperlipidemia Qualified Code(s): E78.2 - Mixed hyperlipidemia Category: Medical Code(s): E78.5 - Hyperlipidemia, unspecified Plan 68-year-old male with history of metastatic lung cancer, CAD, thrombocytopenia, neutropenia, recurrent pleural effusion who presented in septic shock to the ER. Discussed case with ER physician, request admission to ICU for further management. Initiated on vancomycin and Zosyn. Patient critically ill. On 3 vasopressors at this time. Discussed CODE STATUS with and daughter, want patient to be DNR. Continue aggressive treatment however in the meantime. Prognosis guarded. Problems addressed as follows: Septic shock Pneumonia Pleural effusion Acute on chronic hypoxemic respiratory failure -Per my review of chest CT, has consolidation and airspace disease in right lung field along with moderate effusion. -Tachycardic with A-fib with RVR, white count of 2, hypotensive in spite of sepsis bolus. -Continue norepinephrine, vasopressin, initiate phenylephrine for goal MAP greater than 65, wean as tolerated -Status post 30 cc per kg sepsis bolus after completing with additional 500 cc upon arrival to the floor -Currently requiring 6 L oxygen, wean for goal sats between 90 to 95%. - Continue vancomycin IV and Zosyn 3.375 g every 6 hours. Monitor for toxicity. - Pulmonology consulted, discussed case, will continue with remote assistance. Will see patient on Monday. Recommend broad-spectrum antibiotics, vasopressors as selected. - DuoNebs every 6 hours. -Sputum and blood cultures pending -Sodium low at 128, potassium 4.5, kidney function normal with BUN 13, creatinine 0.6. Repeat labs ordered for this afternoon to monitor for change in kidney function. Neutropenia Thrombocytopenia -Blood levels chronically low, white count 2, platelets 66. Baseline platelets 90-100. Will hold on anticoagulation. Hemoglobin 12. Repeat CBC, CMP, magnesium ordered for the morning A-fib with RVR Type II NSTEMI CAD -On metoprolol at home to help control heart rate. No anticoagulation due to thrombocytopenia. Initiated on diltiazem drip. Heart rate converted while being evaluated. Currently in sinus rhythm. Will continue metoprolol short acting 50 mg twice daily. -Troponin initially 0.8, serial troponins pending. Will hold heparin drip in the setting of thrombocytopenia. Concern for supply/demand mismatch. Will reevaluate need for intervention or evaluation pending goals of care with family Hypothyroid: Continue levothyroxine 150 mcg daily Gout: Continue allopurinol 300 mg daily ICU/Critical care attestation This patient is critically ill with 60 minutes devoted solely to this patient managing life/organ supporting interventions that required physician assessment. This includes time spent making adjustments in oxygen, IV fluid administration, titration of pressors, adjustments of medications, discussion of patient with consultants and other care providers as well as updating patient and/or family (if patient by virtue of his/her condition is unable to participate in decision making). This does not include time spent performing separately billed procedures. Time is not concurrent with that of other providers.
--- NOTE | 2024-05-11 07:43 | EXP.SEPSISRE ---
[facility] Tissue Perfusion Eval Sepsis Re-Evaluation Performed: Yes Date Performed: 05/11/24 Time Performed: 08:22
--- NOTE | 2024-05-11 07:47 | PC.NURSE ---
Filiberto called back to advise they had found both sets of blood cultures
--- NOTE | 2024-05-11 07:52 | PC.NURSE ---
Family at BS
--- NOTE | 2024-05-11 07:55 | PC.NURSE ---
I called HS to request an IV pump
[2024-05-11] MEDS: HEPARIN SODIUM 5,000 UNIT/ML VIAL 4000 UNIT IV (08:10)
[2024-05-11] MEDS: HEPARIN SODIUM,PORCINE/D5W 500 ML 18 UNIT IV (08:11)
--- NOTE | 2024-05-11 08:19 | HMH.PHAHEP ---
[facility] Pharmacy Heparin Dosing Demographic Data Admission date:: 05/11/24 Date: 05/11/24 Time: 08:19 Allergies Allergy/AdvReac Type Severity Reaction Status Date / Time No Known Drug Allergies Allergy Unknown Unknown Verified 05/11/24 08:19 [NKDA] allergy reaction Height: 1.83 m Weight: 77 kg Indication Medication therapy:: Heparin Current Active Problems (Updated 05/11/24 @ 07:46 by Mike Da Silva MD) Atrial fibrillation with rapid ventricular response (Acute) Pleural effusion (Acute) Non-ST elevation UT (NSTEMI) (Acute) Septic shock (Acute) Non-ST elevated myocardial infarction (non-STEMI) (Acute) Thrombocytopenia (Acute) Septic shock (Acute) Pleural effusion on right (Acute) BPH (benign prostatic hyperplasia) (Acute) Metastatic malignant neoplasm (Acute) Neutropenia (Acute) Pneumonia (Acute) Malignant neoplasm of lung (Acute) PAF (paroxysmal atrial fibrillation) (Acute) COPD (chronic obstructive pulmonary disease) (Chronic) Acute on chronic respiratory failure with hypoxia and hypercapnia (Chronic) HLD (hyperlipidemia) (Chronic) CHF (congestive heart failure) (Chronic) CAD (coronary artery disease) (Chronic) CVA?: No Bleeding problem?: No Kidney disease?: No UT?: No Desired PTT range:: 50-75 seconds Labs Anticoagulation Lab Results:: 05/11/24 05:15 Hgb 12.2 L Hct 36.4 L Plt Count 66 L Monitoring Dose Monitor 1: Date: 05/11/24 Time: 08:21 PTT Result:: 26.5 Infusion Rate:: HEPARIN BOLUS AT 4000 UNITS. HEPARIN DRIP STARTED AT 18 ML/HR (900 UNITS/HR) Comment:: HEPARIN DRIP STOPPED TODAY. Core Measures Is INR > or = 2 at discharge?: No Most Recent Labs:: Laboratory Results - last 24 hr 05/11/24 05:11: VBG pH 7.36, VBG pCO2 67.1 H, VBG pO2 118.6 H, VBG HCO3 36.9 H, VBG Total CO2 38.9 H, VBG O2 Saturation 98.4 H, VBG Base Excess 11.4 H, VBG Lactic Acid 1.2 05/11/24 05:15: WBC 2.0 L, RBC 3.90 L, Hgb 12.2 L, Hct 36.4 L, MCV 93.3, MCH 31.3 H, MCHC 33.6, RDW 15.2, Plt Count 66 L, MPV 9.2, Neut % (Auto) 76.1, Lymph % (Auto) 11.8, [place] % (Auto) 9.4 H, Eos % (Auto) 1.4, Baso % (Auto) 1.3, Neut # (Auto) 1.6 L, Lymph # (Auto) 0.2 L, [place] # (Auto) 0.2, Eos # (Auto) 0.0, Baso # (Auto) 0.0, PT 13.1 H, INR 1.19 H, APTT 26.5 L, Sodium 128 L, Potassium 4.5, Chloride 88 L, Carbon Dioxide 36 H, Anion Gap 8.5, BUN 13, Creatinine 0.60 L, Estimated Creat Clear 75, Estimated GFR 133, Est GFR ( Amer) 161, Glucose 138 H, Lactate 0.8, Calcium 8.2 L, Total Bilirubin 0.8, AST 24, ALT 10 L, Alkaline Phosphatase 56, Troponin I 0.88 H, NT-Pro-B Natriuret Pep 1750 H, Total Protein 5.5 L, Albumin 3.2 L, Globulin 2.3, Albumin/Globulin Ratio 1.4, HIV 1&2 Antibody Rapid Nonreactive If INR was < than 2.0 why was therapy stopped?: HEPARIN STOPPED Were Heparin and Warfarin started on the same day?: No If not, why?: HEPARIN STOPPED
--- NOTE | 2024-05-11 08:46 | PC.NURSE ---
arrived to floor by stretcher from ED
[2024-05-11] MEDS: PHENYLEPHRINE HCL 10 MG in 0.9 % SODIUM CHLORIDE 250 ML 60.24 MG IV (09:15)
[2024-05-11] MEDS: 0.9 % SODIUM CHLORIDE 1000ML 500 ML IV (09:31)
--- NOTE | 2024-05-11 10:33 | XR_ITS ---
PROCEDURE INFORMATION: Exam: XR Chest Exam date and time: 05/11/2024 10:37 AM Age: 68 years old Clinical indication: Device placement; Picc; Additional info: Picc line placement` TECHNIQUE: Imaging protocol: Radiologic exam of the chest. Views: 1 view. COMPARISON: CT ANGIO CHEST PE PROTOCOL 05/11/2024 6:38 AM FINDINGS: Tubes, catheters and devices: Right upper extremity PICC line tip overlies the left brachiocephalic vein. Lungs: See Heart/Mediastinum finding. Pleural spaces: There is trace right pleural effusion. There is no pneumothorax. Heart/Mediastinum: There are scattered airspace opacities in the lungs along with shift of mediastinum to right. Bones/joints: Unremarkable. IMPRESSION: Right upper extremity PICC line tip overlies the left brachiocephalic vein. This has been repositioned on subsequent radiograph.
--- NOTE | 2024-05-11 10:33 | XR_ITS ---
PROCEDURE INFORMATION: Exam: XR Chest Exam date and time: 05/11/2024 10:45 AM Age: 68 years old Clinical indication: Device placement; Picc; Additional info: Picc line placement` TECHNIQUE: Imaging protocol: Radiologic exam of the chest. Views: 1 view. COMPARISON: CR XR CHEST PORTABLE 05/11/2024 10:37 AM FINDINGS: Tubes, catheters and devices: The right upper extremity PICC line tip overlies the junction of right atrium and inferior vena cava. Retraction is recommended. Lungs: There are scattered airspace opacities in the lungs. Pleural spaces: There is no pneumothorax. There is trace right pleural effusion. Heart/Mediastinum: There is shift of the heart to the right. Bones/joints: Unremarkable. IMPRESSION: 1. Right upper extremity PICC line tip overlies the junction of right atrium and IVC. Retraction is recommended. 2. There are scattered airspace opacities in the lungs.
[2024-05-11] MEDS: NOREPINEPHRINE BITARTRATE/D5W 8 MG/250 ML PLAST..BAG 56.25 MG IV (10:45)
[2024-05-11] MEDS: HYDROCORTISONE SOD SUCCINATE 100MG VIAL 50 MG IV ×3 (11:32→22:38)
[2024-05-11 11:42] LABS: Troponin I 1.19 ng/ml (0.00-0.034)
--- NOTE | 2024-05-11 11:58 | PC.NURSE ---
Pt arrived to unit at approx 0846 escorted by ER staff. upon arrival pt had the following drips infusing: Levophed at 30 mcg Diltazem at 2.5mg Heparin at 900 Units Vasopressin at 0.04 mcg pt had the following IV's present: 16 in r ac 16 l ac 20 L UA at 0900 pt bp was noted to be 81/46 via art line drip compatibilities verified with pharmacy 0915 art line pressure 58/38. order obtained for new pressor medication from 500ml fluid bolus order obtained from at this time as well. 0930 christa-synephrine drip started at this time at 40mcg 67/40 0934 pt complained of pain in r elbow iv site checked and noted to be swelling and appears infiltrated. order received from to attempt to place PICC line. [address] Mackey hold heparin drip r/t plt 66 and lack of iv access for drips at this time. 1008 time out performed for picc line 1038 picc line completed [address] Mackey pull back Picc line by 14cm.
[2024-05-11] MEDS: VANCOMYCIN/WATER FOR INJ (PEG) 1.25 GM/250 ML PIGGYBACK IV ×2 (13:23→22:38)
[2024-05-11] MEDS: METOPROLOL TARTRATE 50MG TABLET 50 MG PO (13:52)
[2024-05-11 14:38] LABS: PTT Heparin (inpatient only) 34.7 Seconds (50-75)
[2024-05-11 14:40] LABS: Troponin I 0.75 ng/ml (0.00-0.034)
[2024-05-11] MEDS: NOREPINEPHRINE BITARTRATE/D5W 8 MG/250 ML PLAST..BAG 33.75 MG IV (15:49)
--- NOTE | 2024-05-11 15:57 | PC.NURSE ---
Addendum entered by Sarai Pennington RN 05/11/24 16:55: art line zero at 1645 Original Note: art line zero at 0915 art line zero at 1550
[2024-05-11] MEDS: VANCOMYCIN CONSULT REQUEST 1 EACH NOTAPPLIC (16:06)
[2024-05-11] MEDS: PIPERCILLIN/TAZO 3.375 GM in 0.9 % SODIUM CHLORIDE 50 ML IV ×2 (16:32→22:38)
[2024-05-11 17:58] LABS: Basophils % 0.1 % (0.1-2.0); Eosinophils % 0.2 % (0.1-12.0); Hematocrit 36.3 % (42.0-52.0); Hemoglobin 11.6 g/dL (14.1-18.0); Lymphocytes # 0.3 K/mm3 (0.7-4.5); Lymphocytes % 9.8 % (10-50); Mean Corpuscular HGB Conc 32.1 g/dL (31.8-35.4); Mean Corpuscular Hemoglobin 31.1 pg (27.0-31.2); Mean Corpuscular Volume 96.9 fl (80-94); Mean Platelet Volume 9.5 fl (7.4-10.4); Monocytes # 0.2 K/mm3 (0.1-1.0); Monocytes % 5.8 % (1.7-9.3); Neutrophils # 2.9 K/mm3 (1.8-7.8); Neutrophils % 84.1 % (37.0-80.0); Platelet Count 94 K/mm3 (142-424); Red Blood Count 3.75 M/mm3 (4.60-6.20); Red Cell Distribution Width 15.1 % (11.5-17.5); White Blood Count 3.4 K/mm3 (4.8-10.8)
[2024-05-11 18:01] LABS: Chloride 84 mmol/L (98-107); Sodium 121 mmol/L (136-145)
[2024-05-11 18:05] LABS: Alanine Aminotransferase 21 U/L (12-78); Albumin/Globulin Ratio 1.3 (1.1-1.8); Alkaline Phosphatase 45 U/L (38-126); Aspartate Amino Transferase 38 U/L (17-59); Bilirubin,Total 0.7 mg/dl (0.2-1.3); Blood Urea Nitrogen 16 mg/dl (9-20); Carbon Dioxide 33 mmol/L (22.0-30.0); Creatinine Clearance Estimated 72 mL/min (50-200); Estimated Glomerular Filt Rate 133 ml/min (>60); GFR (African American) 161 ML/MIN (>60); Globulin 2.3 g/dL (1.3-3.2); Total Protein,Serum 5.3 g/dl (6.3-8.2)
[2024-05-11 18:08] LABS: Glucose 542 mg/dl (74-100)
[2024-05-11 18:09] LABS: Calcium 7.3 mg/dl (8.4-10.2)
[2024-05-11 18:19] LABS: POC Glucose,Bedside 410 (70-110)
[2024-05-11] MEDS: IPRATROPIUM/ALBUTEROL 3 ML NEB IH ×2 (18:38→23:08)
[2024-05-11] MEDS: humaLOG 100 UNITS/ML 10ML VIAL (SSI) 10 UNIT SUBCUT (18:47)
[2024-05-11 19:07] LABS: Microscopic, Urine URINE MICROSCOPIC (MICROSCOPIC)
[2024-05-11 19:13] LABS: Appearance,Urine CLEAR (Clear); Bilirubin,Urine Negative (Negative); Blood, Urine Negative (Negative); Color,Urine YELLOW (Yellow); Glucose,Urine (UA) TRACE (Negative); Ketones,Urine TRACE (Negative); Leukocyte Esterase,Urine Negative (Negative); Nitrate,Urine Negative (Negative); PH,Urine 6.5 (5.0-8.5); Protein,Urine TRACE (Negative)
[2024-05-11 19:40] LABS: Squamous Epithelial Cell,Urine Occasional #/hpf (0-5); WBC,Urine Occasional #/hpf (0-3)
[2024-05-11] MEDS: VASOPRESSIN 40 UNIT in 0.9 % SODIUM CHLORIDE 100 ML 6.12 UNIT IV (21:43)
[2024-05-11] MEDS: TAMSULOSIN 0.4MG CAPSULE 0.4 MG PO (22:38)
[2024-05-11] MEDS: humaLOG 100 UNITS/ML 10ML VIAL (SSI) SUBCUT (23:33)
[2024-05-11] MEDS: ACETAMINOPHEN 325MG TAB 650 MG PO (23:33)
[2024-05-11 23:59] LABS: POC Glucose,Bedside 322 (70-110)
[2024-05-12] VITALS (36 sets, daily range): BP systolic 81–115; BP diastolic 42–67; PULSE 57–88; RESP 15–22; TEMP 36.3–36.6; O2SAT 91–100; BMI 24.1
[2024-05-12] MEDS: PIPERCILLIN/TAZO 3.375 GM in 0.9 % SODIUM CHLORIDE 50 ML IV ×4 (04:29→21:32)
[2024-05-12] MEDS: HYDROCORTISONE SOD SUCCINATE 100MG VIAL 50 MG IV ×4 (04:30→21:16)
[2024-05-12 05:36] LABS: POC Glucose,Bedside 123 (70-110)
[2024-05-12 05:42] LABS: Albumin Level 2.8 g/dl (3.5-5.0); Chloride 92 mmol/L (98-107)
[2024-05-12 05:43] LABS: Potassium 3.9 mmoL/L (3.5-5.1); Sodium 128 mmol/L (136-145)
[2024-05-12 05:45] LABS: Alanine Aminotransferase 14 U/L (12-78); Alkaline Phosphatase 38 U/L (38-126); Anion Gap 2.9 mEq/L (5-15); Aspartate Amino Transferase 29 U/L (17-59); Bilirubin,Total 0.4 mg/dl (0.2-1.3); Blood Urea Nitrogen 18 mg/dl (9-20); Carbon Dioxide 37 mmol/L (22.0-30.0); Creatinine Clearance Estimated 72 mL/min (50-200); Estimated Glomerular Filt Rate 133 ml/min (>60); GFR (African American) 161 ML/MIN (>60)
[2024-05-12 05:46] LABS: Albumin/Globulin Ratio 1.2 (1.1-1.8); Calcium 7.8 mg/dl (8.4-10.2); Globulin 2.4 g/dL (1.3-3.2); Glucose 127 mg/dl (74-100); Magnesium 1.6 mg/dl (1.6-2.3); Total Protein,Serum 5.2 g/dl (6.3-8.2)
[2024-05-12 05:51] LABS: Basophils % 0.4 % (0.1-2.0); Eosinophils % 0.1 % (0.1-12.0); Hematocrit 32.4 % (42.0-52.0); Hemoglobin 10.8 g/dL (14.1-18.0); Lymphocytes # 0.3 K/mm3 (0.7-4.5); Lymphocytes % 12.4 % (10-50); Mean Corpuscular HGB Conc 33.3 g/dL (31.8-35.4); Mean Corpuscular Hemoglobin 30.3 pg (27.0-31.2); Mean Corpuscular Volume 91.2 fl (80-94); Mean Platelet Volume 9.9 fl (7.4-10.4); Monocytes # 0.2 K/mm3 (0.1-1.0); Monocytes % 8.3 % (1.7-9.3); Neutrophils # 1.9 K/mm3 (1.8-7.8); Neutrophils % 78.8 % (37.0-80.0); Platelet Count 67 K/mm3 (142-424); Red Blood Count 3.56 M/mm3 (4.60-6.20); Red Cell Distribution Width 15.4 % (11.5-17.5); White Blood Count 2.4 K/mm3 (4.8-10.8)
--- NOTE | 2024-05-12 06:07 | PC.NURSE ---
Pt a/o x4. Pt has rested well throughout shift. Currently on 2L nc, tolerating well with sat >90%. Norepinephrine gtt has been put on hold and vasopressin gtt has been titrated down to 0.01 u/min. ART line to left FA. PICC line to KARINE. Pt c/o headache at beginning of shift and was given tylenol. No other complaints voiced to staff. Family at bedside. Call light within reach.
[2024-05-12] MEDS: IPRATROPIUM/ALBUTEROL 3 ML NEB IH ×4 (06:58→23:15)
[2024-05-12 08:22] LABS: HCV Ab Non Reactive (Non Reactive)
[2024-05-12] MEDS: ALLOPURINOL 300MG TABLET 300 MG PO (09:08)
[2024-05-12] MEDS: METOPROLOL TARTRATE 50MG TABLET 50 MG PO (09:08)
[2024-05-12] MEDS: FAMOTIDINE 20MG TABLET 20 MG PO (09:08)
[2024-05-12] MEDS: MAGNESIUM SULFATE IN WATER 2 GM/50 ML PIGGYBACK IV (09:08)
[2024-05-12] MEDS: LEVOTHYROXINE 150MCG (0.15MG)TAB 150 MCG PO (09:08)
[2024-05-12] MEDS: MAGNESIUM OXIDE 400MG TABLET 400 MG PO (09:08)
--- NOTE | 2024-05-12 09:17 | EXP.PHA.CONS ---
Pharmacy Consult Date: 05/12/24 Time: 09:17 Referring provider: DR. ROACH Reason for Consult:: VANCOMYCIN DOSING Allergies Allergy/AdvReac Type Severity Reaction Status Date / Time No Known Drug Allergies Allergy Unknown Unknown Verified 05/11/24 08:19 [NKDA] allergy reaction Home Medications ?Medication ?Instructions ?Recorded ?Confirmed ?Type aspirin 81 mg tablet,delayed 81 mg PO DAILY 08/24/20 05/01/24 History release azelastine 137 mcg (0.1 %) nasal 2 spray intranasal HS 90 days #30 09/11/23 05/01/24 Rx spray mL fluticasone propionate 50 2 spray intranasal DAILY 90 days 11/20/23 05/01/24 Rx mcg/actuation nasal #16 grams spray,suspension (Flonase Allergy Relief) levothyroxine 150 mcg tablet 150 mcg PO DAILY #90 tabs 12/12/23 05/01/24 Rx alfuzosin 10 mg tablet,extended 10 mg PO DAILY 90 days #90 tabs 12/25/23 05/01/24 Rx release 24 hr docusate sodium 100 mg tablet 100 mg PO DAILY 03/08/24 05/01/24 History folic acid 1 mg tablet 1 mg PO DAILY 03/08/24 05/01/24 History ondansetron 4 mg disintegrating 4 mg PO Q6H PRN Nausea And Vomiting 03/08/24 05/01/24 History tablet polyethylene glycol 3350 17 17 g PO DAILY PRN Constipation 03/08/24 05/01/24 History gram/dose oral powder (Miralax) famotidine 20 mg tablet 20 mg PO DAILY 03/09/24 05/01/24 History metoprolol succinate 50 mg 50 mg PO HS #90 tabs 03/11/24 05/01/24 Rx tablet,extended release 24 hr (Toprol XL) lovastatin 40 mg tablet 40 mg PO HS 30 days #30 tabs 03/25/24 05/01/24 Rx fluticasone fur. 100 mcg-umeclid 1 inh inhalation DAILY 90 days #90 03/27/24 05/01/24 Rx 62.5 mcg-vilant 25 mcg ea inhalat.powder (Trelegy Ellipta) furosemide 20 mg tablet 20 mg PO DAILY PRN 05/01/24 05/01/24 History allopurinol 300 mg tablet 300 mg PO DAILY 90 days #90 tabs 05/10/24 Rx New Prescriptions to Start Prescriptions: Height: 1.75 m Weight: 74.021 kg Laboratory Results:: Laboratory Results - last 24 hr 05/11/24 05:15: Hepatitis C Antibody Non reactive 05/11/24 11:05: Troponin I 1.19 H 05/11/24 14:03: APTT 34.7 L, Troponin I 0.75 H 05/11/24 17:29: WBC 3.4 L D, RBC 3.75 L, Hgb 11.6 L, Hct 36.3 L, MCV 96.9 H, MCH 31.1, MCHC 32.1, RDW 15.1, Plt Count 94 L D, MPV 9.5, Neut % (Auto) 84.1 H, Lymph % (Auto) 9.8 L, [place] % (Auto) 5.8, Eos % (Auto) 0.2, Baso % (Auto) 0.1, Neut # (Auto) 2.9, Lymph # (Auto) 0.3 L, [place] # (Auto) 0.2, Eos # (Auto) 0.0, Baso # (Auto) 0.0, Sodium 121 L, Potassium 4.0, Chloride 84 L, Carbon Dioxide 33 H, Anion Gap 8.0, BUN 16, Creatinine 0.60 L, Estimated Creat Clear 72, Estimated GFR 133, Est GFR ( Amer) 161, Glucose 542 H* D, Calcium 7.3 L, Total Bilirubin 0.7, AST 38 D, ALT 21 D, Alkaline Phosphatase 45, Total Protein 5.3 L, Albumin 3.0 L, Globulin 2.3, Albumin/Globulin Ratio 1.3 05/11/24 18:12: POC Glucose 410 H* 05/11/24 18:58: Urine Color Yellow, Urine Appearance Clear, Urine pH 6.5, Ur Specific [place] 1.010, Urine Protein Trace, Urine Glucose (UA) Trace, Urine Ketones Trace, Urine Blood Negative, Urine Nitrate Negative, Urine Bilirubin Negative, Urine Urobilinogen 2.0, Ur Leukocyte Esterase Negative, Urine RBC None, Urine WBC Occasional, Ur Squamous Epith Cells Occasional, Urine Bacteria None 05/11/24 22:35: POC Glucose 322 H* 05/12/24 05:28: POC Glucose 123 H 05/12/24 05:30: WBC 2.4 L D, RBC 3.56 L, Hgb 10.8 L, Hct 32.4 L, MCV 91.2, MCH 30.3, MCHC 33.3, RDW 15.4, Plt Count 67 L D, MPV 9.9, Neut % (Auto) 78.8, Lymph % (Auto) 12.4, [place] % (Auto) 8.3, Eos % (Auto) 0.1, Baso % (Auto) 0.4, Neut # (Auto) 1.9, Lymph # (Auto) 0.3 L, [place] # (Auto) 0.2, Eos # (Auto) 0.0, Baso # (Auto) 0.0, Sodium 128 L, Potassium 3.9, Chloride 92 L, Carbon Dioxide 37 H, Anion Gap 2.9 L, BUN 18, Creatinine 0.60 L, Estimated Creat Clear 72, Estimated GFR 133, Est GFR ( Amer) 161, Glucose 127 H D, Calcium 7.8 L, Magnesium 1.6, Total Bilirubin 0.4, AST 29, ALT 14 D, Alkaline Phosphatase 38, Total Protein 5.2 L, Albumin 2.8 L, Globulin 2.4, Albumin/Globulin Ratio 1.2 Medical History: Medical History (Updated 05/11/24 @ 07:46 by Mike Da Silva MD) Radiation esophagitis Esophageal stricture Pleural effusion on right Acute respiratory failure with hypoxia Acute hypercapnic respiratory failure Acute exacerbation of chronic obstructive pulmonary disease Acute hypoxic on chronic hypercapnic respiratory failure COPD (chronic obstructive pulmonary disease) Olecranon bursitis of right elbow Elbow mass Swelling Hilar lymphadenopathy Allergic rhinitis History of lung or bronchial cancer Mediastinal lymphadenopathy History of esophageal dilatation Sinusitis Gynecomastia Discharge from left nipple PAF (paroxysmal atrial fibrillation) COPD (chronic obstructive pulmonary disease) Dyspnea on exertion Malignant neoplasm of unspecified part of unspecified bronchus or lung Pulmonary emphysema Smoking greater than 30 pack years Lung nodule Tobacco abuse counseling HAP (hospital-acquired pneumonia) Influenza A Acute on chronic respiratory failure with hypoxia and hypercapnia Urinary tract infection Tobacco abuse AAA (abdominal aortic aneurysm) Melanoma Thyroid disease Sinus problem History of radiation therapy History of chemotherapy Cataract Myocardial infarction Lung disease DVT (deep venous thrombosis) Cancer Atherosclerotic heart disease Hypotension HLD (hyperlipidemia) Abnormal EKG CAD (coronary artery disease) CHF (congestive heart failure) Gout Tobacco abuse disorder Hypertension Hypothyroidism COPD exacerbation Assessment and Plan Assessment and plan all Dx Assessment and Plan for all problems:: Pharmacokinetic dosing service Objective: Patient: Floor: Age: 68 yo Serum creatinine: 1 mg/dL Height: 68.9 Inches Weight (kg): 74 Assessment: IBW (kg): 70.47 Dosing wt(kg): 74 Estimated Creatinine clearance (ml/min): 68.5 CRCL method: Cockcroft and Gault using ibw(default). Drug selected: Vancomycin Loading dose (mg): 0 Vd (liters): 59.2 (factor used: 0.8 L/kg) Jerardo (hr-1): 0.061 Half life (hrs): 11.36 Recommended dose: 1500 mg Interval: 18 hrs Infusion time (hrs): 2.0 Predicted peak (mcg/mL): 35.8 Predicted trough (mcg/mL): 13.49 Total body weight is being used for vancomycin dosing. Recommendations: Give Vancomycin 1500 mg q 18 hrs with an expected Cpeak of 35.8 mcg/ml and an expected Ctrough of 13.49 mcg/ml ----Vanco only - ignore for aminoglycosides----- CLvanco= 3.61 L/hr AUC 0-24 /ANNA Data: ANNA 0.5 mcg/mL: AUC/ANNA: 1108.0 ANNA 1.0 mcg/mL: AUC/ANNA: 554.0 --------- ANNA 1.5 mcg/mL: AUC/ANNA: 369.3 ANNA 2.0 mcg/mL: AUC/ANNA: 277.0
[2024-05-12] MEDS: FLUTICASONE/UMECLIDIN/VILANTER 100/62.5/25MCG INHALER 1 PUFF IH (09:36)
[2024-05-12] MEDS: humaLOG 100 UNITS/ML 10ML VIAL (SSI) SUBCUT ×3 (11:00→21:28)
[2024-05-12 11:02] LABS: POC Glucose,Bedside 251 (70-110)
[2024-05-12] MEDS: ACETAMINOPHEN 325MG TAB 650 MG PO (14:39)
--- NOTE | 2024-05-12 14:52 | PC.NURSE ---
0720 art line zeroed by Roxy Pennington 1150 art line zeroed and flushed by Roxy Pennington 1430 art line zeroed and flushed by Aleena Chavez
[2024-05-12 16:21] LABS: POC Glucose,Bedside 235 (70-110)
[2024-05-12] MEDS: VANCOMYCIN HCL 1,500 MG in 0.9 % SODIUM CHLORIDE 250 ML 125 MG IV (16:21)
--- NOTE | 2024-05-12 17:51 | EXP.ACUTE.PN ---
Subjective *Date: 05/12/24 *Time: 17:51 Interval history: Patient showing improvement today. On morning rounds, had weaned off of Levophed. Still on vasopressin. Tolerating p.o. intake. Breathing somewhat better today. On 2 L nasal cannula oxygen. Denies nausea, vomiting, chest pain. at bedside, updated of plan Medical Exam Vital signs and Labs for Last 24 Hours: Vital Signs Temp Pulse Pulse Pulse Resp BP BP 05/12/24 17:00 87 18 111/61 105/54 L 05/12/24 17:00 05/12/24 16:00 97.5 F L 05/12/24 16:00 80 05/12/24 16:00 80 16 87/51 L 97/48 L 05/12/24 16:00 76 05/12/24 15:38 74 18 81/42 L 05/12/24 15:00 05/12/24 15:00 74 20 108/62 L 97/49 L 05/12/24 14:30 75 18 94/50 L 05/12/24 14:00 74 22 105/55 L 05/12/24 13:30 74 20 110/55 L 05/12/24 13:00 77 18 107/57 L 05/12/24 13:00 05/12/24 12:30 79 18 104/56 L 05/12/24 12:00 80 05/12/24 12:00 97.8 F 05/12/24 12:00 73 20 96/54 L 05/12/24 12:00 77 05/12/24 11:13 88 05/12/24 11:13 77 05/12/24 11:13 05/12/24 11:00 05/12/24 11:00 69 18 98/55 L 98/55 L 05/12/24 10:00 68 18 96/50 L 92/47 L 05/12/24 10:00 71 20 96/50 L 05/12/24 09:00 05/12/24 09:00 70 18 105/51 L 05/12/24 08:30 76 18 106/49 L 05/12/24 08:00 70 05/12/24 08:00 75 22 103/52 L 05/12/24 08:00 97.4 F L 05/12/24 08:00 70 05/12/24 07:30 81 18 115/67 05/12/24 07:00 68 18 101/56 L 05/12/24 06:59 61 05/12/24 06:59 57 L 05/12/24 06:59 05/12/24 06:50 05/12/24 06:00 68 16 95/47 L 05/12/24 05:00 62 16 86/45 L 05/12/24 04:44 05/12/24 04:00 70 05/12/24 04:00 05/12/24 04:00 97.6 F 63 16 96/49 L 05/12/24 03:00 63 18 95/50 L 05/12/24 03:00 05/12/24 01:59 68 15 97/49 L 05/12/24 01:45 104/51 L 05/12/24 01:00 67 18 105/50 L 05/12/24 00:53 05/12/24 00:14 70 05/12/24 00:00 60 05/12/24 00:00 05/12/24 00:00 97.9 F 65 19 108/52 L 05/11/24 23:45 105/49 L 05/11/24 23:00 05/11/24 23:00 65 16 105/52 L 05/11/24 22:00 61 18 99/49 L 05/11/24 21:00 59 L 17 101/49 L 05/11/24 21:00 05/11/24 20:10 121/56 L 05/11/24 20:00 70 05/11/24 20:00 05/11/24 20:00 63 18 121/54 L 05/11/24 19:55 126/55 L 05/11/24 19:45 134/61 05/11/24 19:38 05/11/24 19:37 66 05/11/24 19:30 142/66 H 05/11/24 19:00 66 20 135/67 05/11/24 19:00 05/11/24 18:30 65 18 139/67 05/11/24 18:00 62 18 135/63 BP Pulse Ox O2 Del Method O2 Flow Rate FiO2 05/12/24 17:00 95 Nasal Cannula 3 05/12/24 17:00 Nasal Cannula 3 05/12/24 16:00 05/12/24 16:00 05/12/24 16:00 97 Nasal Cannula 3 05/12/24 16:00 97 Nasal Cannula 3 05/12/24 15:38 95 Nasal Cannula 3 05/12/24 15:00 Nasal Cannula 3 05/12/24 15:00 96 Nasal Cannula 3 05/12/24 14:30 96 Nasal Cannula 3 05/12/24 14:00 95 Nasal Cannula 3 05/12/24 13:30 94 L Nasal Cannula 3 05/12/24 13:00 94 L Nasal Cannula 3 05/12/24 13:00 Nasal Cannula 3 05/12/24 12:30 93 L Nasal Cannula 3 05/12/24 12:00 05/12/24 12:00 05/12/24 12:00 97 Nasal Cannula 3 05/12/24 12:00 94 L Nasal Cannula 3 05/12/24 11:13 05/12/24 11:13 05/12/24 11:13 96 Nasal Cannula 3 05/12/24 11:00 Nasal Cannula 3 05/12/24 11:00 96 Nasal Cannula 3 05/12/24 10:00 93 L Nasal Cannula 3 05/12/24 10:00 92 L Nasal Cannula 3 05/12/24 09:00 Nasal Cannula 3 05/12/24 09:00 93 L Nasal Cannula 3 05/12/24 08:30 93 L Nasal Cannula 3 05/12/24 08:00 05/12/24 08:00 93 L Nasal Cannula 3 05/12/24 08:00 05/12/24 08:00 92 L Nasal Cannula 3 05/12/24 07:30 91 L Nasal Cannula 2 05/12/24 07:00 96 Nasal Cannula 2 05/12/24 06:59 05/12/24 06:59 05/12/24 06:59 91 L Nasal Cannula 2 05/12/24 06:50 Nasal Cannula 2 05/12/24 06:00 91 L Nasal Cannula 2 05/12/24 05:00 91 L Nasal Cannula 2 05/12/24 04:44 Nasal Cannula 2 05/12/24 04:00 05/12/24 04:00 93 L Nasal Cannula 2 05/12/24 04:00 93 L Nasal Cannula 2 05/12/24 03:00 94 L Nasal Cannula 2 05/12/24 03:00 Nasal Cannula 2 05/12/24 01:59 91 L Nasal Cannula 2 05/12/24 01:45 05/12/24 01:00 93 L Nasal Cannula 2 05/12/24 00:53 Nasal Cannula 2 05/12/24 00:14 05/12/24 00:00 05/12/24 00:00 94 L Nasal Cannula 2 05/12/24 00:00 92 L Nasal Cannula 2 05/11/24 23:45 05/11/24 23:00 Nasal Cannula 2 05/11/24 23:00 93 L Nasal Cannula 2 05/11/24 22:00 92 L Nasal Cannula 2 05/11/24 21:00 95 Nasal Cannula 2 05/11/24 21:00 Nasal Cannula 2 05/11/24 20:10 05/11/24 20:00 05/11/24 20:00 94 L Nasal Cannula 2 05/11/24 20:00 95 Nasal Cannula 2 05/11/24 19:55 05/11/24 19:45 05/11/24 19:38 Nasal Cannula 2 28 05/11/24 19:37 05/11/24 19:30 05/11/24 19:00 135/67 93 L Nasal Cannula 2 05/11/24 19:00 Nasal Cannula 2 05/11/24 18:30 95 Nasal Cannula 2 05/11/24 18:00 143/79 H 94 L Nasal Cannula 2 Intake and Output 05/12/24 05/12/24 05/12/24 07:59 15:59 23:59 Intake Total 307.803 / 1599.311 0988.627 / 1802.430 435 / 1802.430 Output Total 300 / 820 420 / 820 100 / 820 Balance 7.803 / 982.430 639.627 / 982.430 335 / 982.430 Intake: Intake, Oral Amount 1045 / 1480 435 / 1480 Intake, Total IV Amount 307.803 / 322.430 14.627 / 322.430 Pipercillin/Tazo 3.375 gm In 0. 50 / 50 9 % Sodium Chloride 50 ml @ 100 mls/hr IV Q6H [facility] Rx#:[id number] Vancomycin/Water For Inj (Peg) 250 / 250 1.25 gm In 250 ml @ 125 mls/hr IV ONCE ONE Rx#:[id number] Output: Output, Urine Amount 420 / 520 100 / 520 Output, Urine Amount (Catheter) 300 / 300 [place] 300 / 300 Other: Number of Bowel Movements 1 Weight 74.021 kg 74.021 kg Patient Weight 05/12/24 23:59 Weight 74.021 kg Laboratory Results - last 24 hr 05/11/24 05:15: Hepatitis C Antibody Non reactive 05/11/24 17:29: WBC 3.4 L D, RBC 3.75 L, Hgb 11.6 L, Hct 36.3 L, MCV 96.9 H, MCH 31.1, MCHC 32.1, RDW 15.1, Plt Count 94 L D, MPV 9.5, Neut % (Auto) 84.1 H, Lymph % (Auto) 9.8 L, [place] % (Auto) 5.8, Eos % (Auto) 0.2, Baso % (Auto) 0.1, Neut # (Auto) 2.9, Lymph # (Auto) 0.3 L, [place] # (Auto) 0.2, Eos # (Auto) 0.0, Baso # (Auto) 0.0, Sodium 121 L, Potassium 4.0, Chloride 84 L, Carbon Dioxide 33 H, Anion Gap 8.0, BUN 16, Creatinine 0.60 L, Estimated Creat Clear 72, Estimated GFR 133, Est GFR ( Amer) 161, Glucose 542 H* D, Calcium 7.3 L, Total Bilirubin 0.7, AST 38 D, ALT 21 D, Alkaline Phosphatase 45, Total Protein 5.3 L, Albumin 3.0 L, Globulin 2.3, Albumin/Globulin Ratio 1.3 05/11/24 18:12: POC Glucose 410 H* 05/11/24 18:58: Urine Color Yellow, Urine Appearance Clear, Urine pH 6.5, Ur Specific [place] 1.010, Urine Protein Trace, Urine Glucose (UA) Trace, Urine Ketones Trace, Urine Blood Negative, Urine Nitrate Negative, Urine Bilirubin Negative, Urine Urobilinogen 2.0, Ur Leukocyte Esterase Negative, Urine RBC None, Urine WBC Occasional, Ur Squamous Epith Cells Occasional, Urine Bacteria None 05/11/24 22:35: POC Glucose 322 H* 05/12/24 05:28: POC Glucose 123 H 05/12/24 05:30: WBC 2.4 L D, RBC 3.56 L, Hgb 10.8 L, Hct 32.4 L, MCV 91.2, MCH 30.3, MCHC 33.3, RDW 15.4, Plt Count 67 L D, MPV 9.9, Neut % (Auto) 78.8, Lymph % (Auto) 12.4, [place] % (Auto) 8.3, Eos % (Auto) 0.1, Baso % (Auto) 0.4, Neut # (Auto) 1.9, Lymph # (Auto) 0.3 L, [place] # (Auto) 0.2, Eos # (Auto) 0.0, Baso # (Auto) 0.0, Sodium 128 L, Potassium 3.9, Chloride 92 L, Carbon Dioxide 37 H, Anion Gap 2.9 L, BUN 18, Creatinine 0.60 L, Estimated Creat Clear 72, Estimated GFR 133, Est GFR ( Amer) 161, Glucose 127 H D, Calcium 7.8 L, Magnesium 1.6, Total Bilirubin 0.4, AST 29, ALT 14 D, Alkaline Phosphatase 38, Total Protein 5.2 L, Albumin 2.8 L, Globulin 2.4, Albumin/Globulin Ratio 1.2 05/12/24 10:55: POC Glucose 251 H 05/12/24 16:14: POC Glucose 235 H I & O for Labs for Last 24 Hours: Intake & Output 05/09/24 05/10/24 05/11/24 05/12/24 23:59 23:59 23:59 23:59 Intake Total 1736.864 / 0952.029 3314.430 / 1802.430 Output Total 850 / 900 820 / 820 Balance 886.864 / 836.864 982.430 / 982.430 Weight 74.021 kg 74.021 kg Microbiology Reports for the Last 24 Hours: Microbiology 05/11/24 05:54 Blood Blood Culture - Preliminary NO GROWTH AFTER 24 HOURS 05/11/24 05:54 Blood Blood Culture - Preliminary NO GROWTH AFTER 24 HOURS Constitutional: Present no acute distress, thin, chronically ill appearing and cooperative Head: Present atraumatic and normocephalic ENT: Present normal exam Respiratory: Present prolonged expiratory phase, wheezes, crackles and normal respiratory effort; Absent respiratory distress or rhonchi Cardiac: Present Reg Rate and Rhythm GI: Present soft and normal bowel sounds; Absent distention or tenderness Extremities: Present normal inspection and full ROM Skin: Present intact; Absent erythema Neuro: Present Grossly Intact, alert, awake, oriented x 3 and moves all extremities Assessment and Plan *Assessment and plan (1) Septic shock: Status: Acute Category: Medical Code(s): A41.9 - Sepsis, unspecified organism; R65.21 - Severe sepsis with septic shock (2) Acute on chronic respiratory failure with hypoxia and hypercapnia: Status: Chronic Category: Medical Code(s): J96.21 - Acute and chronic respiratory failure with hypoxia; J96.22 - Acute and chronic respiratory failure with hypercapnia (3) Pneumonia: Status: Acute Qualifiers: Laterality: bilateral Category: Medical Code(s): J18.9 - Pneumonia, unspecified organism (4) Neutropenia: Status: Acute Category: Medical Code(s): D70.9 - Neutropenia, unspecified (5) Thrombocytopenia: Status: Acute Category: Medical Code(s): D69.6 - Thrombocytopenia, unspecified (6) Non-ST elevated myocardial infarction (non-STEMI): Status: Acute Category: Medical Code(s): I21.4 - Non-ST elevation (NSTEMI) myocardial infarction (7) Metastatic malignant neoplasm: Status: Acute Category: Medical Code(s): C79.9 - Secondary malignant neoplasm of unspecified site (8) Pleural effusion on right: Status: Acute Category: Medical Code(s): J90 - Pleural effusion, not elsewhere classified (9) BPH (benign prostatic hyperplasia): Status: Acute Category: Medical Code(s): N40.0 - Benign prostatic hyperplasia without lower urinary tract symptoms (10) Malignant neoplasm of lung: Status: Acute Qualifiers: Laterality: unspecified laterality Lung location: overlapping sites Qualified Code(s): C34.80 - Malignant neoplasm of overlapping sites of unspecified bronchus and lung Category: Medical Code(s): C34.90 - Malignant neoplasm of unspecified part of unspecified bronchus or lung (11) PAF (paroxysmal atrial fibrillation): Status: Acute Category: Medical Code(s): I48.0 - Paroxysmal atrial fibrillation (12) COPD (chronic obstructive pulmonary disease): Status: Chronic Qualifiers: COPD type: emphysema Emphysema type: unspecified Qualified Code(s): J43.9 - Emphysema, unspecified Category: Medical Code(s): J44.9 - Chronic obstructive pulmonary disease, unspecified (13) CHF (congestive heart failure): Status: Chronic Qualifiers: Heart failure type: diastolic Heart failure chronicity: chronic Qualified Code(s): I50.32 - Chronic diastolic (congestive) heart failure Category: Medical Code(s): I50.9 - Heart failure, unspecified (14) CAD (coronary artery disease): Status: Chronic Qualifiers: Coronary Disease-Associated Artery/Lesion type: [place] artery [place] vs. transplanted heart: [place] heart Associated angina: without angina Qualified Code(s): I25.10 - Atherosclerotic heart disease of [place] coronary artery without angina pectoris Category: Medical Code(s): I25.10 - Atherosclerotic heart disease of [place] coronary artery without angina pectoris (15) HLD (hyperlipidemia): Status: Chronic Qualifiers: Hyperlipidemia type: mixed hyperlipidemia Qualified Code(s): E78.2 - Mixed hyperlipidemia Category: Medical Code(s): E78.5 - Hyperlipidemia, unspecified Plan 68-year-old male with history of metastatic lung cancer, CAD, thrombocytopenia, neutropenia, recurrent pleural effusion who presented in septic shock to the ER. Discussed case with ER physician, request admission to ICU for further management. Initiated on vancomycin and Zosyn. Symptoms show movement. Weaned to just vasopressin by this morning. Off of norepinephrine and phenylephrine. Continues to require ICU level care. Problems addressed as follows: Septic shock, improving Pneumonia Pleural effusion Acute on chronic hypoxemic respiratory failure -A-fib controlled, converted to sinus rhythm yesterday afternoon. Tolerating metoprolol -Wean vasopressin as tolerated, goal to be off vasopressin today if maps remain above 65. -No further IV fluids today. Tolerating p.o. intake. -Weaned to 2 L nasal cannula oxygen, goal sats between 90 and 95% - Continue vancomycin IV and Zosyn 3.375 g every 6 hours. Monitor for toxicity. - Pulmonology consulted, discussed case, will continue with remote assistance. Will see patient on Monday. - DuoNebs every 6 hours. -Sputum and blood cultures pending -Sodium remains at 128, potassium 3.9, magnesium 1.6, will administer 2 g IV magnesium today. Platelets 67. White count low at 2.4. Kidney function stable with BUN 18, creatinine 0.6. Neutropenia Thrombocytopenia -Blood levels chronically low, white count 2.4, platelets 67. Baseline platelets 90-100. Will hold on anticoagulation. Hemoglobin 11. Repeat CBC, CMP, magnesium ordered for the morning A-fib with RVR Type II NSTEMI CAD -On metoprolol at home to help control heart rate. No anticoagulation due to thrombocytopenia. Heart rate remains in sinus. Will continue metoprolol but dropped to 25 mg tartrate twice daily to decrease impact on blood pressure and goal of weaning off vasopressin above. -Serial troponins trending down. Concern for supply/demand mismatch. Will reevaluate need for intervention or evaluation pending goals of care with family Hypothyroid: Continue levothyroxine 150 mcg daily Gout: Continue allopurinol 300 mg daily ICU/Critical care attestation This patient is critically ill with 35 minutes devoted solely to this patient managing life/organ supporting interventions that required physician assessment. This includes time spent making adjustments in oxygen, IV fluid administration, titration of pressors, adjustments of medications, discussion of patient with consultants and other care providers as well as updating patient and/or family (if patient by virtue of his/her condition is unable to participate in decision making). This does not include time spent performing separately billed procedures. Time is not concurrent with that of other providers.
--- NOTE | 2024-05-12 17:56 | PC.NURSE ---
Pt a/o x4. Pt currently resting supine in bed. Currently on 3L nc, tolerating well with sat >90%. all pressors have been off since 1330. pt MAP remaining above 60. ART line to left FA. PICC line to KARINE. Pt c/o headache at beginning of shift and treated per SEP. chung remains in place draining clear yellow urine. No other complaints voiced to staff. Family at bedside throughout the day. Call light within reach
[2024-05-12] MEDS: BUDESONIDE 0.5MG/2ML NEB 0.5 MG IH (18:10)
[2024-05-12] MEDS: TAMSULOSIN 0.4MG CAPSULE 0.4 MG PO (21:16)
[2024-05-12] MEDS: METOPROLOL TARTRATE 50MG TABLET 25 MG PO (21:16)
[2024-05-12 21:47] LABS: POC Glucose,Bedside 241 (70-110)
[2024-05-13] VITALS (18 sets, daily range): BP systolic 91–158; BP diastolic 50–103; PULSE 65–135; RESP 17–24; TEMP 36.4–37.6; O2SAT 88–98; BMI 24.1
[2024-05-13] MEDS: HYDROCORTISONE SOD SUCCINATE 100MG VIAL 50 MG IV ×4 (05:32→21:02)
[2024-05-13] MEDS: PIPERCILLIN/TAZO 3.375 GM in 0.9 % SODIUM CHLORIDE 50 ML IV ×4 (05:32→20:55)
[2024-05-13] MEDS: humaLOG 100 UNITS/ML 10ML VIAL (SSI) SUBCUT ×4 (05:49→21:00)
[2024-05-13 05:58] LABS: POC Glucose,Bedside 157 (70-110)
--- NOTE | 2024-05-13 06:28 | ECG_ITS ---
APPROVED REPORT Exam: Resting ECG HR:119 bpm ECG Measurements Heart Rate 119 AXES QRSd 117 QRS -71 QT 347 T 38 QTc 417 Conclusion ATRIAL FIBRILLATION WITH RAPID VENTRICULAR RESPONSE LEFT AXIS DEVIATION [QRS AXIS < -30] LOW QRS VOLTAGE [QRS DEFLECTION < 0.5/1.0 mV IN LIMB/CHEST LEADS] RIGHT BUNDLE BRANCH BLOCK [120+ ms QRS DURATION, UPRIGHT V1, 40+ ms S IN I/aVL/V4/V5/V6] POSSIBLE ANTERIOR MYOCARDIAL INFARCTION , PROBABLY OLD [30 ms Q WAVE IN V3/V4, OR R < 0.2 mV IN V4] ABNORMAL ECG UNCONFIRMED REPORT Electronically signed by : Clark Garland MD 05/13/2024 08:39:33
[2024-05-13] MEDS: FLUTICASONE/UMECLIDIN/VILANTER 100/62.5/25MCG INHALER 1 PUFF IH (06:29)
--- NOTE | 2024-05-13 06:32 | PC.NURSE ---
TRn noted that patient with rhythm change approx 0600. EKG obtained and rhythm noted AFIB RVR and right BBB. CIELO Larose notified, and new orders placed. See MAR. Patient remains comfortable in bed, alert and oriented, and denies any complaints/chest pain.
[2024-05-13] MEDS: LEVOTHYROXINE 150MCG (0.15MG)TAB 150 MCG PO (06:55)
[2024-05-13] MEDS: MAGNESIUM SULFATE IN WATER 2 GM/50 ML PIGGYBACK IV (06:55)
[2024-05-13 07:10] LABS: Basophils % 0.1 % (0.1-2.0); Eosinophils % 0.1 % (0.1-12.0); Hematocrit 31.7 % (42.0-52.0); Hemoglobin 10.4 g/dL (14.1-18.0); Lymphocytes # 0.3 K/mm3 (0.7-4.5); Mean Corpuscular HGB Conc 32.8 g/dL (31.8-35.4); Mean Corpuscular Hemoglobin 30.8 pg (27.0-31.2); Mean Corpuscular Volume 93.8 fl (80-94); Mean Platelet Volume 9.3 fl (7.4-10.4); Monocytes # 0.2 K/mm3 (0.1-1.0); Monocytes % 5.8 % (1.7-9.3); Neutrophils # 2.6 K/mm3 (1.8-7.8); Platelet Count 57 K/mm3 (142-424); Red Blood Count 3.38 M/mm3 (4.60-6.20); Red Cell Distribution Width 15.5 % (11.5-17.5)
[2024-05-13 07:12] LABS: MANUAL DIFFERENTIAL MANUAL DIFFERENTIAL (MANUAL DIFF)
[2024-05-13 07:14] LABS: Albumin Level 2.9 g/dl (3.5-5.0); Chloride 92 mmol/L (98-107); Sodium 131 mmol/L (136-145)
[2024-05-13 07:15] LABS: Potassium 3.8 mmoL/L (3.5-5.1)
[2024-05-13 07:17] LABS: Alanine Aminotransferase 13 U/L (12-78); Albumin/Globulin Ratio 1.3 (1.1-1.8); Alkaline Phosphatase 38 U/L (38-126); Anion Gap 3.8 mEq/L (5-15); Aspartate Amino Transferase 29 U/L (17-59); Bilirubin,Total 0.5 mg/dl (0.2-1.3); Blood Urea Nitrogen 12 mg/dl (9-20); Carbon Dioxide 39 mmol/L (22.0-30.0); Creatinine Clearance Estimated 72 mL/min (50-200); Estimated Glomerular Filt Rate 133 ml/min (>60); GFR (African American) 161 ML/MIN (>60); Globulin 2.3 g/dL (1.3-3.2); Total Protein,Serum 5.2 g/dl (6.3-8.2)
[2024-05-13 07:18] LABS: Calcium 8.1 mg/dl (8.4-10.2); Glucose 148 mg/dl (74-100); Magnesium 2.1 mg/dl (1.6-2.3)
[2024-05-13] MEDS: DOCUSATE SODIUM 100 MG CAPSULE PO (07:57)
[2024-05-13] MEDS: MAGNESIUM OXIDE 400MG TABLET 400 MG PO (07:57)
[2024-05-13] MEDS: ALLOPURINOL 300MG TABLET 300 MG PO (07:58)
[2024-05-13] MEDS: FAMOTIDINE 20MG TABLET 20 MG PO (07:58)
[2024-05-13] MEDS: METOPROLOL TARTRATE 50MG TABLET 50 MG PO ×2 (07:58→20:55)
[2024-05-13 08:33] LABS: Lymphocytes % 14 % (10-50); Monocytes % 3 % (2-9); Neutrophils % 83 % (42-76); Platelet Estimate Moderate Decrease; RBC Morphology Normal; Total Cells Counted 100
--- NOTE | 2024-05-13 09:34 | HMH.PTEV ---
Physical Therapy Evaluation Rehab PT IP Evaluation Start: 05/12/24 17:35 Freq: ONCE Status: Active Protocol: Document 05/13/24 09:24 MONICA (Rec: 05/13/24 09:34 MONICA [id number]) Subjective/History History History Per H&P: Mr. Medeiros is a 68- year-old male with history of metastatic lung cancer, CHF, COPD on 2 to 3 L nasal cannula at baseline who presented to the ER with complaint of weakness and altered mental status. He woke up this morning to go to the bathroom and felt more weak and was slightly confused. When family checked on him shortly thereafter, he was not responding to them. Of note, patient reports receiving his flu shot yesterday. When patient was unresponsive, he was warm to touch. EMS was called for assistance. On arrival, patient was noted to have a temperature of 100.1. Hypoxic. Noted to have Rales and wheeze. Administer DuoNebs along with Solu-Medrol and transported him to the ER for further management. Initial GCS of 10 upon EMS evaluation. On arrival to the ER, patient found to be in septic shock with tachycardia, leukopenia with white count of 2, hypotension not responsive to fluid bolus necessitating vasopressors. Increased oxygen requirement of 6 L. Medicine consulted for admission to ICU and further management of septic shock. Chest imaging with CT concerning for effusion that is recurrent and likely malignant along with pneumonia in right lung. On arrival to the floor, patient remains hypotensive with MAP in the 50s. He is alert and interactive. Answering questions somewhat, does not recall coming to the hospital. Is disoriented to time but knows who he is and that he is at the hospital. Says he is breathing a little bit better on 6 L. Still febrile. Temperature of 104 in the ER, improved to 101. Currently on norepinephrine, vasopressin, initiating phenylephrine due to persistent hypotension. Finishing sepsis bolus with an additional 500 cc of normal saline. Subjective Subjective Pt reports he lives at home with his . Pt usually IND with all mobility without AD. Ramped entrance into home. Pt' s is present throughout and able to assist as needed. New diagnosis of cancer in past 12 No months? Rehab PT IP Eval Objective Appearance Patient Behavior Appropriate,Cooperative Patient Orientation Person,Situation Difficulty following instructions none Speech Pattern Clear Ambulation Patient Able to Ambulate Yes Ambulation Observation IP General Gait Pattern Observation No Deviations/Normal Ambulation Distance (feet) 5 Ambulation Assistive Device Rolling Walker Ambulation Ability Contact Guard/Hand Hold, Minimal x 1 (25% assist) Balance Ability to Arise Able, uses arms to help Sitting Balance Steady, safe Standing Balance Steady, wide stance Dynamic Sitting Balance Ability Good Dynamic Standing Balance Ability Fair Transfers Bed Transfer Ability Supervision/Stand by Sit to Stand Bed Transfer Ability Contact Guard/Hand Hold Rehab PT IP prob,goals,plan Problems Date of Evaluation: 05/13/24 PT IP Problems Bed Mobility,Transfers,Gait, Balance,Self care,Safety Rehab Potential Rehab Potential Good Equipment Needs Assistive Devices Rolling / Wheeled Walker Plan PT Intervention Plan Bed Mobility,Transfers,Gait, Balance,Self care,Safety, Therapeutic Exercise Other Intervention Plan 1-2 times PT Plan Frequency Daily Duration LOS Discharge Goals Bed Transfer Ability Supervision/Stand by Sit to Stand Chair Transfer Ability Supervision/Stand by Ambulation Assistive Device Rolling Walker Ambulation Distance (feet) 20 Discharge Plan PT Discharge Plan Pt presents below baseline with functional mobility. Mobility assessment limited by lines/tubes. Pt demo'd safe in-place marching/amb using RW with CGA. Pt needs a RW prior to d/c home to maximize safety with ambulation. Pt would benefit from skilled PT to address deficits. PT recommending PT services. Eval Complexity Eval Charge Codes 02591 - Moderate Complexity PHYSICIAN CERTIFICATION: I certify the specified therapy services for Delonte Medeiros are required, authorized, and reviewed every 30 days.
--- NOTE | 2024-05-13 09:54 | P.CONS_ITS ---
History of Present Illness History of present illness: Mr. Medeiros is a 68-year-old male greater than [id number] smoking history, COPD, status post chemoradiation and immunotherapy, completed radiation and adrenal nodule, subsequently found to have worsening lymphadenopathy and recurrence of cancer currently following with oncology on salvage chemotherapy presented to the ER with worsening respiratory distress and pulmonary was called for further evaluation and management. [facility] Disclaimer: The information contained in this section may have been updated after the patient was seen, as this information can be updated by other users. Medical History (Updated 05/13/24 @ 13:23 by Arie Sosa MD) Acute and chronic respiratory failure with hypoxia Radiation esophagitis Esophageal stricture Pleural effusion on right Acute respiratory failure with hypoxia Acute hypercapnic respiratory failure Acute exacerbation of chronic obstructive pulmonary disease Acute hypoxic on chronic hypercapnic respiratory failure COPD (chronic obstructive pulmonary disease) Olecranon bursitis of right elbow Elbow mass Swelling Hilar lymphadenopathy Allergic rhinitis History of lung or bronchial cancer Mediastinal lymphadenopathy History of esophageal dilatation Sinusitis Gynecomastia Discharge from left nipple PAF (paroxysmal atrial fibrillation) COPD (chronic obstructive pulmonary disease) Dyspnea on exertion Malignant neoplasm of unspecified part of unspecified bronchus or lung Pulmonary emphysema Smoking greater than 30 pack years Lung nodule Tobacco abuse counseling HAP (hospital-acquired pneumonia) Influenza A Acute on chronic respiratory failure with hypoxia and hypercapnia Urinary tract infection Tobacco abuse AAA (abdominal aortic aneurysm) Melanoma Thyroid disease Sinus problem History of radiation therapy History of chemotherapy Cataract Myocardial infarction Lung disease DVT (deep venous thrombosis) Cancer Atherosclerotic heart disease Hypotension HLD (hyperlipidemia) Abnormal EKG CAD (coronary artery disease) CHF (congestive heart failure) Gout Tobacco abuse disorder Hypertension Hypothyroidism COPD exacerbation Surgical History H/O melanoma excision History of heart artery stent History of cardiac cath History of colonoscopy Family History Other AAA (abdominal aortic aneurysm) Coronary artery disease Gout Heart attack Hypertension Social History Smoking Status: Current every day smoker tobacco type: cigarettes packs per day: 1 alcohol intake: former substance use type: denies use 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ional status: retired and disabled Travel in the last 8 weeks: None household members: spouse housing: house lives independently: No marital status: education level: high school service: No detention: No caffeine: No special honey needs: No agree to transfusion: No do you feel safe at home: Yes victim of physical abuse: No victim of emotional abuse: No victim of sexual abuse: No would you like helpful sources: No Review of Systems Constitutional Constitutional: Reports anorexia, Reports body ache(s) and Reports fatigue Eyes Eyes: Denies eye discharge, Denies dry eyes, Denies irritation and Denies itchy eyes ENT Ears, Nose, Mouth, and Throat: Denies epistaxis, Denies facial pain, Denies lip swelling and Denies throat swelling *Cardiovascular Cardiovascular: Reports dyspnea, Reports dyspnea on exertion and Reports orthopnea *Respiratory Respiratory: Denies change in phlegm color, Reports chest congestion, Reports cough, Reports dyspnea, Reports dyspnea on exertion, Reports excessive phlegm production and Reports wheezing *Gastrointestinal Gastrointestinal: Denies abdominal pain, Denies belching and Denies cramping *Musculoskeletal Musculoskeletal: Reports back pain, Reports myalgias and Reports other (No small joint swelling or Pain) Psychiatric Psychiatric: Denies homicidal ideation and Denies suicidal ideation Endocrine Endocrine: Reports fatigue and Denies heat intolerance Hematologic/Lymphatic Hematologic/Lymphatic: Denies easy bleeding and Denies lymphadenopathy Allergic/Immunologic Allergic/Immunologic: Denies itchy eyes, Denies lip swelling, Denies throat swelling and Reports wheezing Pulmonology Exam Inpatient Vital signs and Labs for Last 24 Hours: Temp Pulse Resp BP Pulse Ox O2 Del Method O2 Flow Rate 97.6 F 65 22 109/57 L 93 L Nasal Cannula 1.5 05/13/24 08:00 05/13/24 09:00 05/13/24 09:00 05/13/24 09:00 05/13/24 09:00 05/13/24 09:00 05/13/24 09:00 FiO2 3 05/13/24 00:00 Laboratory Results - last 24 hr 05/12/24 10:55: POC Glucose 251 H 05/12/24 16:14: POC Glucose 235 H 05/12/24 21:25: POC Glucose 241 H 05/13/24 05:43: WBC 3.0 L, RBC 3.38 L, Hgb 10.4 L, Hct 31.7 L, MCV 93.8, MCH 30.8, MCHC 32.8, RDW 15.5, Plt Count 57 L, MPV 9.3, Neut % (Auto) 85.0 H, Lymph % (Auto) 9.0 L, [place] % (Auto) 5.8, Eos % (Auto) 0.1, Baso % (Auto) 0.1, Neut # (Auto) 2.6, Lymph # (Auto) 0.3 L, [place] # (Auto) 0.2, Eos # (Auto) 0.0, Baso # (Auto) 0.0, Total Counted 100, Neutrophils % (Manual) 83 H, Lymphocytes % (Manual) 14, Monocytes % (Manual) 3, Platelet Estimate Moderate decrease, RBC Morphology Normal, Sodium 131 L, Potassium 3.8, Chloride 92 L, Carbon Dioxide 39 H, Anion Gap 3.8 L, BUN 12 D, Creatinine 0.60 L, Estimated Creat Clear 72, Estimated GFR 133, Est GFR ( Amer) 161, Glucose 148 H, Calcium 8.1 L, M agnesium 2.1 D, Total Bilirubin 0.5, AST 29, ALT 13, Alkaline Phosphatase 38, T otal Protein 5.2 L, Albumin 2.9 L, Globulin 2.3, Albumin/Globulin Ratio 1.3 05/13/24 05:44: POC Glucose 157 H I & O for Labs for Last 24 Hours: Intake & Output 05/10/24 05/11/24 05/12/24 05/13/24 23:59 23:59 23:59 23:59 Intake Total 1736.864 / 4904.697 4558.430 / 2092.430 340 / 340 Output Total 850 / 900 1670 / 1720 2100 / 2100 Balance 886.864 / 836.864 372.430 / 372.430 -1760 / -1760 Weight 163 lb 3 oz 163 lb 3.014 oz 163 lb 2.273 oz Microbiology Reports for the Last 24 Hours: Microbiology 05/12/24 02:35 Sputum - Expectorated Sputum Gram Stain - Final 05/12/24 02:35 Sputum - Expectorated Sputum Sputum Culture - Preliminary 05/11/24 05:54 Blood Blood Culture - Preliminary NO GROWTH AFTER 48 HOURS 05/11/24 05:54 Blood Blood Culture - Preliminary NO GROWTH AFTER 48 HOURS Constitutional: Present moderate distress Head: Present normocephalic and atraumatic ENT: Present normal exam, normal oropharynx and mucous membranes moist Neck: Present normal inspection and full ROM Respiratory: Present respiratory distress, rhonchi, diminished air movement and able to speak in complete sentences; Absent wheezes Cardiac: Present S1/S2, Tachycardia and radial pulses present GI: Present soft and distention; Absent tenderness or guarding Skin: Present intact; Absent cyanosis or jaundice Neuro: Present alert, awake and oriented x 3 Extremities: Present normal inspection; Absent clubbing or cyanosis Psychiatric: Present normal affect and cooperative Meds Home Medications and Allergies Home Medications ?Medication ?Instructions ?Recorded ?Confirmed ?Type aspirin 81 mg tablet,delayed 81 mg PO DAILY 08/24/20 05/12/24 History release azelastine 137 mcg (0.1 %) nasal 2 spray intranasal HS 90 days #30 09/11/23 05/12/24 Rx spray mL levothyroxine 150 mcg tablet 150 mcg PO DAILY #90 tabs 12/12/23 05/12/24 Rx alfuzosin 10 mg tablet,extended 10 mg PO DAILY 90 days #90 tabs 12/25/23 05/12/24 Rx release 24 hr docusate sodium 100 mg tablet 100 mg PO DAILY 03/08/24 05/12/24 History folic acid 1 mg tablet 1 mg PO DAILY 03/08/24 05/12/24 History ondansetron 4 mg disintegrating 4 mg PO Q6H PRN Nausea And Vomiting 03/08/24 05/12/24 History tablet polyethylene glycol 3350 17 17 g PO DAILYP PRN Constipation 03/08/24 05/12/24 History gram/dose oral powder (Miralax) metoprolol succinate 50 mg 50 mg PO HS #90 tabs 03/11/24 05/12/24 Rx tablet,extended release 24 hr (Toprol XL) lovastatin 40 mg tablet 40 mg PO HS 30 days #30 tabs 03/25/24 05/12/24 Rx fluticasone fur. 100 mcg-umeclid 1 inh inhalation DAILY 90 days #90 03/27/24 05/12/24 Rx 62.5 mcg-vilant 25 mcg ea inhalat.powder (Trelegy Ellipta) furosemide 20 mg tablet 20 mg PO DAILYP PRN Fluid 05/01/24 05/12/24 History allopurinol 300 mg tablet 300 mg PO DAILY 90 days #90 tabs 05/10/24 05/12/24 Rx New Prescriptions to Start Prescriptions: Allergies Allergy/AdvReac Type Severity Reaction Status Date / Time No Known Drug Allergies Allergy Unknown Unknown Verified 05/11/24 08:19 [NKDA] allergy reaction Results Laboratory Findings 05/13/24 05:43 05/13/24 05:43 PT/INR, D-dimer PT 13.1 seconds (10.1-12.5) H 05/11/24 05:15 INR 1.19 (0.9-1.1) H 05/11/24 05:15 Abnormal lab findings: Abnormal Labs 05/11/24 05/11/24 05/11/24 05:11 05:15 11:05 WBC 2.0 L RBC 3.90 L Hgb 12.2 L Hct 36.4 L MCV MCH 31.3 H Plt Count 66 L Neut % (Auto) Lymph % (Auto) [place] % (Auto) 9.4 H Neut # (Auto) 1.6 L Lymph # (Auto) 0.2 L Neutrophils % (Manual) PT 13.1 H INR 1.19 H APTT 26.5 L VBG pCO2 67.1 H VBG pO2 118.6 H VBG HCO3 36.9 H VBG Total CO2 38.9 H VBG O2 Saturation 98.4 H VBG Base Excess 11.4 H Sodium 128 L Chloride 88 L Carbon Dioxide 36 H Anion Gap Creatinine 0.60 L Glucose 138 H POC Glucose Calcium 8.2 L ALT 10 L Troponin I 0.88 H 1.19 H NT-Pro-B Natriuret Pep 1750 H Total Protein 5.5 L Albumin 3.2 L 05/11/24 05/11/24 05/11/24 14:03 17:29 18:12 WBC 3.4 L D RBC 3.75 L Hgb 11.6 L Hct 36.3 L MCV 96.9 H MCH Plt Count 94 L D Neut % (Auto) 84.1 H Lymph % (Auto) 9.8 L [place] % (Auto) Neut # (Auto) Lymph # (Auto) 0.3 L Neutrophils % (Manual) PT INR APTT 34.7 L VBG pCO2 VBG pO2 VBG HCO3 VBG Total CO2 VBG O2 Saturation VBG Base Excess Sodium 121 L Chloride 84 L Carbon Dioxide 33 H Anion Gap Creatinine 0.60 L Glucose 542 H* D POC Glucose 410 H* Calcium 7.3 L ALT Troponin I 0.75 H NT-Pro-B Natriuret Pep Total Protein 5.3 L Albumin 3.0 L 05/11/24 05/12/24 05/12/24 22:35 05:28 05:30 WBC 2.4 L D RBC 3.56 L Hgb 10.8 L Hct 32.4 L MCV MCH Plt Count 67 L D Neut % (Auto) Lymph % (Auto) [place] % (Auto) Neut # (Auto) Lymph # (Auto) 0.3 L Neutrophils % (Manual) PT INR APTT VBG pCO2 VBG pO2 VBG HCO3 VBG Total CO2 VBG O2 Saturation VBG Base Excess Sodium 128 L Chloride 92 L Carbon Dioxide 37 H Anion Gap 2.9 L Creatinine 0.60 L Glucose 127 H D POC Glucose 322 H* 123 H Calcium 7.8 L ALT Troponin I NT-Pro-B Natriuret Pep Total Protein 5.2 L Albumin 2.8 L 05/12/24 05/12/24 05/12/24 10:55 16:14 21:25 WBC RBC Hgb Hct MCV MCH Plt Count Neut % (Auto) Lymph % (Auto) [place] % (Auto) Neut # (Auto) Lymph # (Auto) Neutrophils % (Manual) PT INR APTT VBG pCO2 VBG pO2 VBG HCO3 VBG Total CO2 VBG O2 Saturation VBG Base Excess Sodium Chloride Carbon Dioxide Anion Gap Creatinine Glucose POC Glucose 251 H 235 H 241 H Calcium ALT Troponin I NT-Pro-B Natriuret Pep Total Protein Albumin 05/13/24 05/13/24 05:43 05:44 WBC 3.0 L RBC 3.38 L Hgb 10.4 L Hct 31.7 L MCV MCH Plt Count 57 L Neut % (Auto) 85.0 H Lymph % (Auto) 9.0 L [place] % (Auto) Neut # (Auto) Lymph # (Auto) 0.3 L Neutrophils % (Manual) 83 H PT INR APTT VBG pCO2 VBG pO2 VBG HCO3 VBG Total CO2 VBG O2 Saturation VBG Base Excess Sodium 131 L Chloride 92 L Carbon Dioxide 39 H Anion Gap 3.8 L Creatinine 0.60 L Glucose 148 H POC Glucose 157 H Calcium 8.1 L ALT Troponin I NT-Pro-B Natriuret Pep Total Protein 5.2 L Albumin 2.9 L Assessment and Plan *Assessment and plan (1) Septic shock: Status: Acute Category: Medical Code(s): A41.9 - Sepsis, unspecified organism; R65.21 - Severe sepsis with septic shock (2) Acute and chronic respiratory failure with hypoxia: Status: Acute Category: Medical Code(s): J96.21 - Acute and chronic respiratory failure with hypoxia (3) Pleural effusion on right: Status: Acute Category: Medical Code(s): J90 - Pleural effusion, not elsewhere classified (4) Pneumonia: Status: Acute Qualifiers: Laterality: bilateral Category: Medical Code(s): J18.9 - Pneumonia, unspecified organism Plan Mr. Medeiros is a 68-year-old male greater than [id number] smoking history, COPD, status post chemoradiation and immunotherapy, completed radiation and adrenal nodule, subsequently found to have worsening lymphadenopathy and recurrence of cancer currently following with oncology on salvage chemotherapy presented to the ER with worsening respiratory distress and pulmonary was called for further evaluation and management. Patient upon admission found to be in septic shock needing vasopressors including norepinephrine and vasopressin eventually initiating phenylephrine to maintain MAP goal of greater than 65. Patient was initiated on stress dose steroids. Completed sepsis bolus. Gradually improving hemodynamics with decreasing pressor requirements. Leukopenia. Comprehensive respiratory viral PCR panel negative. CTA upon admission no evidence of pulmonary embolism. Worsening lung nodules and lymphadenopathy malignant etiology. Moderate left pleural effusion. No other dense consolidative/airspace changes noted. Patient currently receiving vancomycin and Zosyn on stress dose steroids. DuoNebs every 6 hours along with Pulmicort scheduled. On examination patient does not appear to be in any respiratory distress this morning. Off pressors. Continue to increase needing 1 to 2 L nasal cannula oxygen supplementation. Blood cultures no growth 48 hours. Plan: Status post diagnostic right-sided thoracentesis. Will follow. Continue Zosyn pending clinical improvement. Will discontinue vancomycin and stress dose steroids. Continue nasal cannula oxygen supplementation to maintain O2 saturation of 90% and above DuoNebs every 6 hours along with Pulmicort Q12 scheduled # Thank you for involving pulmonary in this patient care. Will continue to follow.
--- NOTE | 2024-05-13 10:09 | HMH.OTEV ---
OT Inpatient Evaluation Rehab OT IP Evaluation Start: 05/12/24 17:35 Freq: ONCE Status: Active Protocol: Document 05/13/24 10:02 JAIME (Rec: 05/13/24 10:09 JAIME [id number]) Rehab OT IP Assessment Subjective History 68-year-old male with history of metastatic lung cancer, CAD , thrombocytopenia, neutropenia, recurrent pleural effusion who presented in septic shock to the ER. Discussed case with ER physician, request admission to ICU for further management. Initiated on vancomycin and Zosyn. Symptoms show movement . Weaned to just vasopressin by this morning. Off of norepinephrine and phenylephrine. Continues to require ICU level care. Problems addressed as follows: Septic shock, improving Pneumonia Pleural effusion Acute on chronic hypoxemic respiratory failure -A-fib controlled, converted to sinus rhythm yesterday afternoon. Tolerating metoprolol -Wean vasopressin as tolerated , goal to be off vasopressin today if maps remain above 65. -No further IV fluids today. Tolerating p.o. intake. -Weaned to 2 L nasal cannula oxygen, goal sats between 90 and 95% - Continue vancomycin IV and Zosyn 3.375 g every 6 hours. Monitor for toxicity. - Pulmonology consulted, discussed case, will continue with remote assistance. Will see patient on Monday. - DuoNebs every 6 hours. -Sputum and blood cultures pending -Sodium remains at 128, potassium 3.9, magnesium 1.6, will administer 2 g IV magnesium today. Platelets 67 . White count low at 2.4. Kidney function stable with BUN 18, creatinine 0.6. Neutropenia Thrombocytopenia -Blood levels chronically low, white count 2.4, platelets 67 . Baseline platelets 90-100. Will hold on anticoagulation. Hemoglobin 11. Repeat CBC, CMP, magnesium ordered for the morning A-fib with RVR Type II NSTEMI CAD -On metoprolol at home to help control heart rate. No anticoagulation due to thrombocytopenia. Heart rate remains in sinus. Will continue metoprolol but dropped to 25 mg tartrate twice daily to decrease impact on blood pressure and goal of weaning off vasopressin above . -Serial troponins trending down. Concern for supply/ demand mismatch. Will reevaluate need for intervention or evaluation pending goals of care with family Hypothyroid: Continue levothyroxine 150 mcg daily Gout: Continue allopurinol 300 mg daily ICU/Critical care attestation Patient independent with ADLs and fx'l mobility prior to admission. Lives at home with . Clarisa Adrian. Instructed Patient on proper hand and foot placement to complete bed mobility from supine->sit @ EOB->stand with usage of RW requiring Min A x2 . Min took ~1-2 steps forward and backwards with assistance. Limited mobility due to line mgt. Assisted patient back in bed with needs met. Objective Patient Orientation Person,Name,Age,Birthday,Year Right Upper Extremity Gross ROM WFL Left Upper Extremity Gross ROM WFL Bed Mobility bed mobility - supine/sit Assist Level Minimal x 2 (25% assist) Transfer Training Sit/Stand Transfer,Sit/Stand/ Step Transfer,Sit/Stand/Pivot Transfer Assist Level Minimal x 2 (25% assist) Chair Transfer Ability Minimal x 2 (25% assist) Chair Transfer Technique Sit to/from Ambulatory Rehab OT IP prob,goals,plan Problems Date of Evaluation: 05/13/24 OT IP Problems Bed Mobility,Transfers,Balance ,Self care,Safety Rehab Potential Rehab Potential Good Equipment Needs Assistive Devices Rolling / Wheeled Walker Plan OT intervention Plan Bed Mobility,Transfers,Balance ,Self care,Safety,Therapeutic Exercise OT Plan Frequency Daily Duration LOS Discharge Goals Bed Mobility Ability Assistance x1 Sit to Stand Chair Transfer Ability Minimal x 1 (25% assist) Chair Transfer Ability Minimal x 1 (25% assist) Chair Transfer Technique Sit to/from Ambulatory Chair Transfer Assistive Devices Rolling Walker Discharge Plan OT Discharge Plan REcommend patient to return home with services with family. If family is unable to provide care at this time, recommend placement. Patient to continue skilled OT IP services while here at [facility]. Eval Complexity Eval Charge Codes 95126 - Low Complexity PHYSICIAN CERTIFICATION: I certify the specified therapy services for Delonte Medeiros are required, authorized, and reviewed every 30 days.
--- NOTE | 2024-05-13 10:19 | SW/DCPLANNER ---
Addendum entered by Catarina David 05/15/24 09:55: [facility] is unable to accept this patient due to location and insurance. I have updated patient/family that I am not able to establish care w/ home health. I did offer outpatient [facility] rehab services at the [facility]. voiced that she will be able to work w/ patient at home. stated that they would not be able to do outpatient due to not driving. I will continue to follow up w/ patient and family until medically stable for discharge. Discharge date is unknown at this time. Addendum entered by Catarina David 05/14/24 15:22: Yaneth w/ [facility] stated they are not in network w/ patient's insurance. I will fax information to [facility]. Addendum entered by Catarina David 05/14/24 13:57: [facility] and [facility] agencies are not able to accept this patient. Patient information/order has been faxed to [facility]. Original Note: I spoke w/ this patient and his regarding plans once medically stable for discharge. PT/OT evaluated patient and recommended home health services and family assistance at discharge. Patient/ are agreeable to home health services and do not have an agency preference. Patient has voiced the need for a rolling walker and prefers this be ordered from [facility]. I will continue to follow up w/ this patient and set up home health services at time of discharge. Discharge date is unknown at this time.
[2024-05-13] MEDS: IPRATROPIUM/ALBUTEROL 3 ML NEB IH ×2 (10:51→18:39)
[2024-05-13] MEDS: VANCOMYCIN HCL 1,500 MG in 0.9 % SODIUM CHLORIDE 250 ML 125 MG IV (11:05)
--- NOTE | 2024-05-13 11:25 | US_ITS ---
FINAL REPORT CLINICAL HISTORY: recurring pleural effusion, malignant-- RT THORA-- SHAYAN KUMAR-- 1250 ML FINDINGS: ULTRASOUND-GUIDED THORACENTESIS HISTORY: Right pleuraleffusion. ATTENDING PHYSICIAN: Dr. Yi PHYSICIAN HELICOPTER DISPATCHER: Shayan Ralph PA-C TECHNIQUE: Informed consent was obtained from the patient. The indications and complications were discussed with the patient prior to beginning the procedure. This included, but was not limited to pain, bleeding, infection, and pneumothorax requiring chest tube placement. The right back was then prepped and draped in sterile fashion. 1% Lidocaine was used for local anesthesia. Utilizing sonographic guidance, a standard thoracentesis needle and sheath were inserted into the pleural space and approximately 1250 mL of pleural fluid was successfully removed without complication. The patient tolerated the procedure well. IMPRESSION: Technically successful sonographic guided right-sidedthoracentesis as above. Films reviewed , interpreted and dictated by Dr. Yi. Transcribed by Shayan Ralph PA-C. Reviewed, Interpreted and Dictated by Noel Yi III, MD Transcribed by JOSÉ Bonner Authenticated and [facility]
[2024-05-13 11:32] LABS: POC Glucose,Bedside 163 (70-110)
--- NOTE | 2024-05-13 12:26 | XR_ITS ---
PROCEDURE INFORMATION: Exam: XR Chest Exam date and time: 05/13/2024 12:28 PM Age: 68 years old Clinical indication: Abnormal findings; Other: S/P RT thoracentesis; Additional info: Post thoracentesis RT side-- 1250 ml -- inpatient-- hxof lung malignancy TECHNIQUE: Imaging protocol: Radiologic exam of the chest. Views: 1 view. COMPARISON: CR XR CHEST PORTABLE 05/11/2024 10:45 AM FINDINGS: Tubes, catheters and devices: The right upper extremity PICC has been pulled back and now the distal tip is in good position in the superior vena cava. Lungs: Trace infiltrates versus atelectasis at each lung base. Pleural spaces: No pneumothorax. Heart/Mediastinum: Unremarkable. No cardiomegaly. Bones/joints: Unremarkable. IMPRESSION: 1. No evidence of a pneumothorax status post right thoracentesis. 2. Trace infiltrate versus atelectasis at each lung base.
[2024-05-13 13:13] LABS: Appearance,Body Fld. Cloudy; RBC,Body Fluid < 10 cells/uL (< 10 X 10^3); Source, Body Fld. Pleural Fluid; TNC,Body Fluid 258 cells/uL (< 1000); Volume,Body Fld. 1250 mL
[2024-05-13 14:46] LABS: Mononuclear WBCs,Body Fluid 59 %; Polynuclear WBC,Body Fluid 41 %
[2024-05-13 17:14] LABS: POC Glucose,Bedside 217 (70-110)
--- NOTE | 2024-05-13 17:53 | PC.NURSE ---
Patient weaned to 1.5LNC, VS stable. Patient tachycardic in 120's-130's with movement, md notified. Patient not symptomatic, heart rate decreases back to low 100's after patient relaxes. Lung sounds clear. IV antibiotics given. Patient able to sit in chair for some of shift but prefers to sit on side of bed for meals. Patient able to ambulate to bathroom to void after chung removed. 1 BM noted during shift. Art line site clean dry and intact after removal, gauze and tegaderm applied.
--- NOTE | 2024-05-13 18:07 | EXP.ACUTE.PN ---
Subjective *Date: 05/13/24 *Time: 22:49 Interval history: Feeling better today. Stable on 2 L. No nausea or vomiting. Maintaining blood pressure off pressors for over 24 hours. Tolerating p.o. intake. Medical Exam Vital signs and Labs for Last 24 Hours: Vital Signs Temp Pulse Pulse Resp BP BP Pulse Ox 05/13/24 17:00 05/13/24 16:00 120 H 05/13/24 16:00 99.6 F 110 H 22 101/58 L 91 L 05/13/24 15:00 05/13/24 13:15 76 22 144/93 H 94 L 05/13/24 13:00 85 22 141/100 H 92 L 05/13/24 13:00 05/13/24 12:45 73 22 158/98 H 89 L 05/13/24 12:40 127 H 20 143/103 H 88 L 05/13/24 12:00 70 05/13/24 11:47 97.9 F 76 18 107/58 L 93 L 05/13/24 11:00 05/13/24 10:52 75 05/13/24 10:52 73 05/13/24 09:00 65 22 109/57 L 93 L 05/13/24 08:56 05/13/24 08:00 135 H 05/13/24 08:00 97.6 F 05/13/24 08:00 05/13/24 08:00 126 H 20 102/59 L 94 L 05/13/24 07:00 112 H 22 98/56 L 97 05/13/24 06:00 118 H 17 100/63 L 96 05/13/24 05:00 79 18 102/55 L 96 05/13/24 04:00 80 05/13/24 04:00 97.6 F 05/13/24 01:00 85 18 100/54 L 98 05/13/24 00:00 80 05/13/24 00:00 97.6 F 79 21 91/50 L 96 05/12/24 23:00 84 22 113/64 111/56 L 98 05/12/24 22:00 74 18 101/54 L 108/54 L 96 05/12/24 21:00 80 17 97/55 L 101/52 L 95 05/12/24 20:00 80 05/12/24 20:00 82 16 101/58 L 94 L 05/12/24 19:25 05/12/24 19:24 74 05/12/24 19:23 82 05/12/24 19:00 86 22 94/53 L 99/48 L 94 L 05/12/24 18:36 O2 Del Method O2 Flow Rate FiO2 05/13/24 17:00 Nasal Cannula 1.5 05/13/24 16:00 05/13/24 16:00 Nasal Cannula 1 05/13/24 15:00 Nasal Cannula 1 05/13/24 13:15 Room Air 05/13/24 13:00 Nasal Cannula 1 05/13/24 13:00 Room Air 05/13/24 12:45 Nasal Cannula 1 05/13/24 12:40 Room Air 05/13/24 12:00 05/13/24 11:47 Nasal Cannula 1 05/13/24 11:00 Room Air 05/13/24 10:52 05/13/24 10:52 05/13/24 09:00 Nasal Cannula 1.5 05/13/24 08:56 Nasal Cannula 1.5 05/13/24 08:00 05/13/24 08:00 05/13/24 08:00 Nasal Cannula 1.5 05/13/24 08:00 Nasal Cannula 1.5 05/13/24 07:00 Nasal Cannula 3 05/13/24 06:00 Nasal Cannula 3 05/13/24 05:00 Nasal Cannula 3 05/13/24 04:00 05/13/24 04:00 05/13/24 01:00 Nasal Cannula 3 05/13/24 00:00 05/13/24 00:00 Nasal Cannula 3 05/12/24 23:00 Nasal Cannula 3 05/12/24 22:00 Nasal Cannula 3 05/12/24 21:00 Nasal Cannula 3 05/12/24 20:00 05/12/24 20:00 Nasal Cannula 3 05/12/24 19:25 Nasal Cannula, BiPAP 3 05/12/24 19:24 05/12/24 19:23 05/12/24 19:00 Nasal Cannula 3 05/12/24 18:36 Nasal Cannula 3 Intake and Output 05/13/24 05/13/24 05/13/24 07:59 15:59 23:59 Intake Total 100 / 690 590 / 690 Output Total 1350 / 2100 750 / 2100 Balance -1250 / -1410 -160 / -1410 Intake: Intake, Oral Amount 490 / 490 Intake, Total IV Amount 100 / 200 100 / 200 Magnesium Sulfate in Water 2 gm 50 / 50 In 50 ml @ 50 mls/hr IV ONCE ONE Rx#:[id number] Pipercillin/Tazo 3.375 gm In 0. 100 / 150 50 / 150 9 % Sodium Chloride 50 ml @ 100 mls/hr IV Q6H [facility] Rx#:[id number] Output: Output, Urine Amount 750 / 750 Output, Urine Amount (Catheter) 1350 / 1350 [place] 1350 / 1350 Other: Number of Unmeasured Voids 1 Number of Bowel Movements 1 Weight 74 kg Patient Weight 05/13/24 23:59 Weight 74 kg Laboratory Results - last 24 hr 05/12/24 21:25: POC Glucose 241 H 05/13/24 05:43: WBC 3.0 L, RBC 3.38 L, Hgb 10.4 L, Hct 31.7 L, MCV 93.8, MCH 30.8, MCHC 32.8, RDW 15.5, Plt Count 57 L, MPV 9.3, Neut % (Auto) 85.0 H, Lymph % (Auto) 9.0 L, [place] % (Auto) 5.8, Eos % (Auto) 0.1, Baso % (Auto) 0.1, Neut # (Auto) 2.6, Lymph # (Auto) 0.3 L, [place] # (Auto) 0.2, Eos # (Auto) 0.0, Baso # (Auto) 0.0, Total Counted 100, Neutrophils % (Manual) 83 H, Lymphocytes % (Manual) 14, Monocytes % (Manual) 3, Platelet Estimate Moderate decrease, RBC Morphology Normal, Sodium 131 L, Potassium 3.8, Chloride 92 L, Carbon Dioxide 39 H, Anion Gap 3.8 L, BUN 12 D, Creatinine 0.60 L, Estimated Creat Clear 72, Estimated GFR 133, Est GFR ( Amer) 161, Glucose 148 H, Calcium 8.1 L, Magnesium 2.1 D, Total Bilirubin 0.5, AST 29, ALT 13, Alkaline Phosphatase 38, Total Protein 5.2 L, Albumin 2.9 L, Globulin 2.3, Albumin/Globulin Ratio 1.3 05/13/24 05:44: POC Glucose 157 H 05/13/24 11:25: POC Glucose 163 H 05/13/24 12:40: Fluid Source Pleural fluid, Fluid Volume 1250, Fluid Appearance Cloudy, Fluid RBC (Auto) < 10, Fld Tot Nucleated Cell 258, Fld Polynuclear WBCs % 41, Fld Mononuclear WBCs % 59 05/13/24 16:33: POC Glucose 217 H I & O for Labs for Last 24 Hours: Intake & Output 05/10/24 05/11/24 05/12/24 05/13/24 23:59 23:59 23:59 23:59 Intake Total 1736.864 / 8429.491 6628.430 / 2092.430 690 / 690 Output Total 850 / 900 1670 / 1720 2100 / 2100 Balance 886.864 / 836.864 372.430 / 372.430 -1410 / -1410 Weight 74.021 kg 74.021 kg 74 kg Microbiology Reports for the Last 24 Hours: Microbiology 05/12/24 02:35 Sputum - Expectorated Sputum Gram Stain - Final 05/12/24 02:35 Sputum - Expectorated Sputum Sputum Culture - Preliminary 05/11/24 05:54 Blood Blood Culture - Preliminary NO GROWTH AFTER 48 HOURS 05/11/24 05:54 Blood Blood Culture - Preliminary NO GROWTH AFTER 48 HOURS Constitutional: Present no acute distress, thin, chronically ill appearing and cooperative Head: Present atraumatic and normocephalic ENT: Present normal exam Respiratory: Present prolonged expiratory phase, crackles and normal respiratory effort; Absent respiratory distress, rhonchi or wheezes Cardiac: Present Reg Rate and Rhythm GI: Present soft and normal bowel sounds; Absent distention or tenderness Extremities: Present normal inspection and full ROM Skin: Present intact; Absent erythema Neuro: Present Grossly Intact, alert, awake, oriented x 3 and moves all extremities Assessment and Plan *Assessment and plan (1) Septic shock: Status: Acute Category: Medical Code(s): A41.9 - Sepsis, unspecified organism; R65.21 - Severe sepsis with septic shock (2) Acute on chronic respiratory failure with hypoxia and hypercapnia: Status: Chronic Category: Medical Code(s): J96.21 - Acute and chronic respiratory failure with hypoxia; J96.22 - Acute and chronic respiratory failure with hypercapnia (3) Pneumonia: Status: Acute Qualifiers: Laterality: bilateral Category: Medical Code(s): J18.9 - Pneumonia, unspecified organism (4) Neutropenia: Status: Acute Category: Medical Code(s): D70.9 - Neutropenia, unspecified (5) Thrombocytopenia: Status: Acute Category: Medical Code(s): D69.6 - Thrombocytopenia, unspecified (6) Non-ST elevated myocardial infarction (non-STEMI): Status: Acute Category: Medical Code(s): I21.4 - Non-ST elevation (NSTEMI) myocardial infarction (7) Metastatic malignant neoplasm: Status: Acute Category: Medical Code(s): C79.9 - Secondary malignant neoplasm of unspecified site (8) Pleural effusion on right: Status: Acute Category: Medical Code(s): J90 - Pleural effusion, not elsewhere classified (9) BPH (benign prostatic hyperplasia): Status: Acute Category: Medical Code(s): N40.0 - Benign prostatic hyperplasia without lower urinary tract symptoms (10) Malignant neoplasm of lung: Status: Acute Qualifiers: Laterality: unspecified laterality Lung location: overlapping sites Qualified Code(s): C34.80 - Malignant neoplasm of overlapping sites of unspecified bronchus and lung Category: Medical Code(s): C34.90 - Malignant neoplasm of unspecified part of unspecified bronchus or lung (11) PAF (paroxysmal atrial fibrillation): Status: Acute Category: Medical Code(s): I48.0 - Paroxysmal atrial fibrillation (12) COPD (chronic obstructive pulmonary disease): Status: Chronic Qualifiers: COPD type: emphysema Emphysema type: unspecified Qualified Code(s): J43.9 - Emphysema, unspecified Category: Medical Code(s): J44.9 - Chronic obstructive pulmonary disease, unspecified (13) CHF (congestive heart failure): Status: Chronic Qualifiers: Heart failure type: diastolic Heart failure chronicity: chronic Qualified Code(s): I50.32 - Chronic diastolic (congestive) heart failure Category: Medical Code(s): I50.9 - Heart failure, unspecified (14) CAD (coronary artery disease): Status: Chronic Qualifiers: Coronary Disease-Associated Artery/Lesion type: [place] artery [place] vs. transplanted heart: [place] heart Associated angina: without angina Qualified Code(s): I25.10 - Atherosclerotic heart disease of [place] coronary artery without angina pectoris Category: Medical Code(s): I25.10 - Atherosclerotic heart disease of [place] coronary artery without angina pectoris (15) HLD (hyperlipidemia): Status: Chronic Qualifiers: Hyperlipidemia type: mixed hyperlipidemia Qualified Code(s): E78.2 - Mixed hyperlipidemia Category: Medical Code(s): E78.5 - Hyperlipidemia, unspecified Plan 68-year-old male with history of metastatic lung cancer, CAD, thrombocytopenia, neutropenia, recurrent pleural effusion who presented in septic shock to the ER. Discussed case with ER physician, request admission to ICU for further management. Showing improvement. Off pressors for over 24 hours. IR consulted for thoracentesis. Fluid studies pending. De-escalate to stepdown level of care. Monitor overnight. Problems addressed as follows. Septic shock, improving Pneumonia Pleural effusion Acute on chronic hypoxemic respiratory failure -A-fib controlled, converted to sinus rhythm yesterday afternoon. Tolerating metoprolol -Discussed case with pulmonology, recommend right-sided thoracentesis with IR. Discontinue vancomycin and steroids. Continue nasal cannula oxygen, goal sats greater 90%. Wean as tolerated. DuoNebs every 6 hours and Pulmicort twice daily. If does well overnight, anticipate discharge tomorrow -Continue Zosyn 3.375 g every 6 hours. Monitor for toxicity. - Sputum and blood cultures pending - sodium 131, potassium 3.8, kidney function normal with BUN 12, creatinine 0.6. Neutropenia Thrombocytopenia -Blood levels chronically low, white count 3.0, platelets 57. Baseline platelets 90-100. Will hold on anticoagulation. Hemoglobin 10. Repeat CBC, CMP, magnesium ordered for the morning A-fib with RVR Type II NSTEMI CAD -On metoprolol at home to help control heart rate. No anticoagulation due to thrombocytopenia. Heart rate in and out of sinus and A-fib. Increase metoprolol back to 50 mg tartrate twice daily. Hypothyroid: Continue levothyroxine 150 mcg daily Gout: Continue allopurinol 300 mg daily DNR Regular diet
--- NOTE | 2024-05-13 18:32 | ECG_ITS ---
APPROVED REPORT Exam: Resting ECG HR:125 bpm ECG Measurements Heart Rate 125 AXES QRSd 111 QRS 267 QT 258 T 44 QTc 332 Conclusion ATRIAL FIBRILLATION WITH RAPID VENTRICULAR RESPONSE RIGHT AXIS DEVIATION [QRS AXIS > 100] LOW QRS VOLTAGE IN PRECORDIAL LEADS [QRS DEFLECTION < 1.0 mV IN CHEST LEADS] PATTERN CONSISTENT WITH PULMONARY DISEASE RIGHT BUNDLE BRANCH BLOCK [120+ ms QRS DURATION, UPRIGHT V1, 40+ ms S IN I/aVL/V4/V5/V6] ABNORMAL ECG UNCONFIRMED REPORT Electronically signed by : Clark Garland MD 05/14/2024 15:53:14
[2024-05-13] MEDS: BUDESONIDE 0.5MG/2ML NEB 0.5 MG IH (18:39)
[2024-05-13] MEDS: METOPROLOL TARTRATE 5MG/5ML VIAL 5 MG IV (18:44)
[2024-05-13] MEDS: TAMSULOSIN 0.4MG CAPSULE 0.4 MG PO (20:55)
[2024-05-13 21:12] LABS: POC Glucose,Bedside 236 (70-110)
[2024-05-14] VITALS (9 sets, daily range): BP systolic 106–138; BP diastolic 59–84; PULSE 71–120; RESP 17–24; TEMP 36.4–36.7; O2SAT 92–100; BMI 22.9
[2024-05-14] MEDS: IPRATROPIUM/ALBUTEROL 3 ML NEB IH ×2 (00:05→06:11)
[2024-05-14] MEDS: PIPERCILLIN/TAZO 3.375 GM in 0.9 % SODIUM CHLORIDE 50 ML IV ×2 (02:48→08:59)
--- NOTE | 2024-05-14 06:08 | PC.NURSE ---
patient has rested well tonight on 1.5L NC, non-productive cough. voiding per urinal.
[2024-05-14] MEDS: BUDESONIDE 0.5MG/2ML NEB 0.5 MG IH (06:11)
[2024-05-14] MEDS: FLUTICASONE/UMECLIDIN/VILANTER 100/62.5/25MCG INHALER 1 PUFF IH (06:11)
[2024-05-14] MEDS: LEVOTHYROXINE 150MCG (0.15MG)TAB 150 MCG PO (06:28)
[2024-05-14 06:34] LABS: POC Glucose,Bedside 127 (70-110)
[2024-05-14 06:44] LABS: Albumin Level 2.9 g/dl (3.5-5.0); Chloride 96 mmol/L (98-107); Sodium 135 mmol/L (136-145)
[2024-05-14 06:47] LABS: Alanine Aminotransferase 19 U/L (12-78); Albumin/Globulin Ratio 1.2 (1.1-1.8); Alkaline Phosphatase 45 U/L (38-126); Aspartate Amino Transferase 27 U/L (17-59); Bilirubin,Total 0.5 mg/dl (0.2-1.3); Blood Urea Nitrogen 14 mg/dl (9-20); Carbon Dioxide 38 mmol/L (22.0-30.0); Creatinine Clearance Estimated 68 mL/min (50-200); Estimated Glomerular Filt Rate 133 ml/min (>60); GFR (African American) 161 ML/MIN (>60); Globulin 2.4 g/dL (1.3-3.2); Total Protein,Serum 5.3 g/dl (6.3-8.2)
[2024-05-14 06:48] LABS: Calcium 8.1 mg/dl (8.4-10.2); Glucose 127 mg/dl (74-100)
[2024-05-14 06:51] LABS: Basophils % 0.3 % (0.1-2.0); Eosinophils % 0.1 % (0.1-12.0); Hematocrit 32.2 % (42.0-52.0); Hemoglobin 10.3 g/dL (14.1-18.0); Lymphocytes # 0.3 K/mm3 (0.7-4.5); Lymphocytes % 12.2 % (10-50); Mean Corpuscular HGB Conc 32.1 g/dL (31.8-35.4); Mean Corpuscular Hemoglobin 30.6 pg (27.0-31.2); Mean Corpuscular Volume 95.4 fl (80-94); Mean Platelet Volume 10.2 fl (7.4-10.4); Monocytes # 0.1 K/mm3 (0.1-1.0); Neutrophils # 2.1 K/mm3 (1.8-7.8); Neutrophils % 82.4 % (37.0-80.0); Platelet Count 58 K/mm3 (142-424); Red Blood Count 3.37 M/mm3 (4.60-6.20); Red Cell Distribution Width 15.7 % (11.5-17.5); White Blood Count 2.6 K/mm3 (4.8-10.8)
[2024-05-14 07:15] LABS: Magnesium 2.2 mg/dl (1.6-2.3)
[2024-05-14] MEDS: DOCUSATE SODIUM 100 MG CAPSULE PO (08:18)
[2024-05-14] MEDS: FAMOTIDINE 20MG TABLET 20 MG PO (08:18)
[2024-05-14] MEDS: MAGNESIUM OXIDE 400MG TABLET 400 MG PO (08:18)
[2024-05-14] MEDS: ALLOPURINOL 300MG TABLET 300 MG PO (08:19)
[2024-05-14] MEDS: METOPROLOL TARTRATE 50MG TABLET 50 MG PO ×2 (08:19→20:05)
--- NOTE | 2024-05-14 09:29 | P.PN_ITS ---
Subjective *Date: 05/14/24 *Time: : Medical Exam Vital signs and Labs for Last 24 Hours: Vital Signs Temp Pulse Pulse Resp BP Pulse Ox O2 Del Method 05/14/24 08:00 97.8 F 115 H 24 138/84 92 L Nasal Cannula 05/14/24 08:00 Nasal Cannula 05/14/24 06:11 71 05/14/24 06:11 72 05/14/24 06:11 94 L Nasal Cannula 05/14/24 06:08 Nasal Cannula 05/14/24 05:00 Nasal Cannula 05/14/24 04:00 97.6 F 80 21 115/62 94 L Nasal Cannula 05/14/24 04:00 80 05/14/24 03:00 Nasal Cannula 05/14/24 01:00 Nasal Cannula 05/14/24 00:05 80 05/14/24 00:05 83 05/14/24 00:00 97.5 F L 83 20 119/71 100 Nasal Cannula 05/14/24 00:00 80 05/13/24 23:00 Nasal Cannula 05/13/24 21:00 Nasal Cannula 05/13/24 20:00 90 05/13/24 20:00 Nasal Cannula 05/13/24 20:00 97.6 F 91 H 24 113/58 L 93 L Nasal Cannula 05/13/24 18:40 115 H 05/13/24 18:40 91 L Nasal Cannula 05/13/24 18:37 Room Air 05/13/24 17:00 Nasal Cannula 05/13/24 16:00 120 H 05/13/24 16:00 99.6 F 110 H 22 101/58 L 91 L Nasal Cannula 05/13/24 15:00 Nasal Cannula 05/13/24 13:15 76 22 144/93 H 94 L Room Air 05/13/24 13:00 85 22 141/100 H 92 L Nasal Cannula 05/13/24 13:00 Room Air 05/13/24 12:45 73 22 158/98 H 89 L Nasal Cannula 05/13/24 12:40 127 H 20 143/103 H 88 L Room Air 05/13/24 12:00 70 05/13/24 11:47 97.9 F 76 18 107/58 L 93 L Nasal Cannula 05/13/24 11:00 Room Air 05/13/24 10:52 75 05/13/24 10:52 73 O2 Flow Rate 05/14/24 08:00 2 05/14/24 08:00 1 05/14/24 06:11 05/14/24 06:11 05/14/24 06:11 2 05/14/24 06:08 1.5 05/14/24 05:00 1.5 05/14/24 04:00 2 05/14/24 04:00 05/14/24 03:00 1.5 05/14/24 01:00 1.5 05/14/24 00:05 05/14/24 00:05 05/14/24 00:00 2 05/14/24 00:00 05/13/24 23:00 1.5 05/13/24 21:00 1.5 05/13/24 20:00 05/13/24 20:00 1.5 05/13/24 20:00 2 05/13/24 18:40 05/13/24 18:40 3 05/13/24 18:37 05/13/24 17:00 1.5 05/13/24 16:00 05/13/24 16:00 1 05/13/24 15:00 1 05/13/24 13:15 05/13/24 13:00 1 05/13/24 13:00 05/13/24 12:45 1 05/13/24 12:40 05/13/24 12:00 05/13/24 11:47 1 05/13/24 11:00 05/13/24 10:52 05/13/24 10:52 Intake and Output 05/13/24 05/14/24 05/14/24 23:59 07:59 15:59 Intake Total 530 / 1340 120 / 720 600 / 720 Output Total 150 / 2250 350 / 350 Balance 380 / -910 -230 / 370 600 / 370 Intake: Intake, Oral Amount 480 / 1090 120 / 720 600 / 720 Intake, Total IV Amount 50 / 250 Pipercillin/Tazo 3.375 gm In 0. 50 / 200 9 % Sodium Chloride 50 ml @ 100 mls/hr IV Q6H REPLACED BY [facility] Rx#:[id number] Output: Output, Urine Amount 150 / 900 350 / 350 Other: Number of Unmeasured Voids 1 1 Weight 70.216 kg Patient Weight 05/14/24 23:59 Weight 70.216 kg Laboratory Results - last 24 hr 05/13/24 11:25: POC Glucose 163 H 05/13/24 12:40: Fluid Source Pleural fluid, Fluid Volume 1250, Fluid Appearance Cloudy, Fluid RBC (Auto) < 10, Fld Tot Nucleated Cell 258, Fld Polynuclear WBCs % 41, Fld Mononuclear WBCs % 59 05/13/24 16:33: POC Glucose 217 H 05/13/24 21:00: POC Glucose 236 H 05/14/24 05:31: WBC 2.6 L, RBC 3.37 L, Hgb 10.3 L, Hct 32.2 L, MCV 95.4 H, MCH 30.6, MCHC 32.1, RDW 15.7, Plt Count 58 L, MPV 10.2, Neut % (Auto) 82.4 H, Lymph % (Auto) 12.2, [place] % (Auto) 5.0, Eos % (Auto) 0.1, Baso % (Auto) 0.3, Neut # (Auto) 2.1, Lymph # (Auto) 0.3 L, [place] # (Auto) 0.1, Eos # (Auto) 0.0, Baso # (Auto) 0.0, Sodium 135 L, Potassium 4.0, Chloride 96 L, Carbon Dioxide 38 H, Anion Gap 5.0, BUN 14, Creatinine 0.60 L, Estimated Creat Clear 68, Estimated GFR 133, Est GFR ( Amer) 161, Glucose 127 H, Calcium 8.1 L, Magnesium 2.2, Total Bilirubin 0.5, AST 27, ALT 19 D, Alkaline Phosphatase 45, Total Protein 5.3 L, Albumin 2.9 L, Globulin 2.4, Albumin/Globulin Ratio 1.2 05/14/24 06:26: POC Glucose 127 H I & O for Labs for Last 24 Hours: Intake & Output 05/11/24 05/12/24 05/13/24 05/14/24 23:59 23:59 23:59 23:59 Intake Total 1736.864 / 9919.865 7635.430 / 2092.430 1220 / 1340 720 / 720 Output Total 850 / 900 1670 / 1720 2250 / 2250 350 / 350 Balance 886.864 / 836.864 372.430 / 372.430 -1030 / -910 370 / 370 Weight 74.021 kg 74.021 kg 74 kg 70.216 kg Microbiology Reports for the Last 24 Hours: Microbiology 05/12/24 02:35 Sputum - Expectorated Sputum Gram Stain - Final 05/12/24 02:35 Sputum - Expectorated Sputum Sputum Culture - Preliminary 05/13/24 12:40 Thoracic Fluid Gram Stain - Final 05/11/24 05:54 Blood Blood Culture - Preliminary NO GROWTH AFTER 48 HOURS 05/11/24 05:54 Blood Blood Culture - Preliminary NO GROWTH AFTER 48 HOURS The patient's infection will respond to the chosen ABx?: Yes Is the patient receiving the right drug, dose, and route?: Yes Could a more targeted ABx be ordered?: No (WBC WNL, AFEBRILE)
--- NOTE | 2024-05-14 09:54 | P.PN_ITS ---
Subjective *Date: 05/14/24 *Time: 11:19 Interval history: No acute respiratory vents overnight. Patient admits continued improvement in her respiratory status. Pulmonology Exam Inpatient Vital signs and Labs for Last 24 Hours: Temp Pulse Resp BP Pulse Ox O2 Del Method O2 Flow Rate 97.8 F 115 H 24 138/84 92 L Nasal Cannula 2 05/14/24 08:00 05/14/24 08:00 05/14/24 08:00 05/14/24 08:00 05/14/24 08:00 05/14/24 08:00 05/14/24 08:00 FiO2 3 05/13/24 00:00 Laboratory Results - last 24 hr 05/13/24 11:25: POC Glucose 163 H 05/13/24 12:40: Fluid Source Pleural fluid, Fluid Volume 1250, Fluid Appearance Cloudy, Fluid RBC (Auto) < 10, Fld Tot Nucleated Cell 258, Fld Polynuclear WBCs % 41, Fld Mononuclear WBCs % 59 05/13/24 16:33: POC Glucose 217 H 05/13/24 21:00: POC Glucose 236 H 05/14/24 05:31: WBC 2.6 L, RBC 3.37 L, Hgb 10.3 L, Hct 32.2 L, MCV 95.4 H, MCH 30.6, MCHC 32.1, RDW 15.7, Plt Count 58 L, MPV 10.2, Neut % (Auto) 82.4 H, Lymph % (Auto) 12.2, [place] % (Auto) 5.0, Eos % (Auto) 0.1, Baso % (Auto) 0.3, Neut # (Auto) 2.1, Lymph # (Auto) 0.3 L, [place] # (Auto) 0.1, Eos # (Auto) 0.0, Baso # (Auto) 0.0, Sodium 135 L, Potassium 4.0, Chloride 96 L, Carbon Dioxide 38 H, Anion Gap 5.0, BUN 14, Creatinine 0.60 L, Estimated Creat Clear 68, Estimated GFR 133, Est GFR ( Amer) 161, Glucose 127 H, Calcium 8.1 L, Magnesium 2.2, Total Bilirubin 0.5, AST 27, ALT 19 D, Alkaline Phosphatase 45, Total Protein 5.3 L, Albumin 2.9 L, Globulin 2.4, Albumin/Globulin Ratio 1.2 05/14/24 06:26: POC Glucose 127 H Temp Pulse Resp BP Pulse Ox O2 Del Method O2 Flow Rate 97.6 F 65 22 109/57 L 93 L Nasal Cannula 1.5 05/13/24 08:00 05/13/24 09:00 05/13/24 09:00 05/13/24 09:00 05/13/24 09:00 05/13/24 09:00 05/13/24 09:00 FiO2 3 05/13/24 00:00 Laboratory Results - last 24 hr 05/12/24 10:55: POC Glucose 251 H 05/12/24 16:14: POC Glucose 235 H 05/12/24 21:25: POC Glucose 241 H 05/13/24 05:43: WBC 3.0 L, RBC 3.38 L, Hgb 10.4 L, Hct 31.7 L, MCV 93.8, MCH 30.8, MCHC 32.8, RDW 15.5, Plt Count 57 L, MPV 9.3, Neut % (Auto) 85.0 H, Lymph % (Auto) 9.0 L, [place] % (Auto) 5.8, Eos % (Auto) 0.1, Baso % (Auto) 0.1, Neut # (Auto) 2.6, Lymph # (Auto) 0.3 L, [place] # (Auto) 0.2, Eos # (Auto) 0.0, Baso # (Auto) 0.0, Total Counted 100, Neutrophils % (Manual) 83 H, Lymphocytes % (Manual) 14, Monocytes % (Manual) 3, Platelet Estimate Moderate decrease, RBC Morphology Normal, Sodium 131 L, Potassium 3.8, Chloride 92 L, Carbon Dioxide 39 H, Anion Gap 3.8 L, BUN 12 D, Creatinine 0.60 L, Estimated Creat Clear 72, Estimated GFR 133, Est GFR ( Amer) 161, Glucose 148 H, Calcium 8.1 L, Magnesium 2.1 D, Total Bilirubin 0.5, AST 29, ALT 13, Alkaline Phosphatase 38, Total Protein 5.2 L, Albumin 2.9 L, Globulin 2.3, Albumin/Globulin Ratio 1.3 05/13/24 05:44: POC Glucose 157 H I & O for Labs for Last 24 Hours: Intake & Output 05/11/24 05/12/24 05/13/24 05/14/24 23:59 23:59 23:59 23:59 Intake Total 1736.864 / 9854.114 4738.430 / 2092.430 1220 / 1340 720 / 720 Output Total 850 / 900 1670 / 1720 2250 / 2250 350 / 350 Balance 886.864 / 836.864 372.430 / 372.430 -1030 / -910 370 / 370 Weight 163 lb 3 oz 163 lb 3.014 oz 163 lb 2.273 oz 154 lb 12.8 oz Intake & Output 05/10/24 05/11/24 05/12/24 05/13/24 23:59 23:59 23:59 23:59 Intake Total 1736.864 / 9576.864 6743.430 / 2092.430 340 / 340 Output Total 850 / 900 1670 / 1720 2100 / 2100 Balance 886.864 / 836.864 372.430 / 372.430 -1760 / -1760 Weight 163 lb 3 oz 163 lb 3.014 oz 163 lb 2.273 oz Microbiology Reports for the Last 24 Hours: Microbiology 05/12/24 02:35 Sputum - Expectorated Sputum Gram Stain - Final 05/12/24 02:35 Sputum - Expectorated Sputum Sputum Culture - Preliminary 05/13/24 12:40 Thoracic Fluid Gram Stain - Final 05/11/24 05:54 Blood Blood Culture - Preliminary NO GROWTH AFTER 48 HOURS 05/11/24 05:54 Blood Blood Culture - Preliminary NO GROWTH AFTER 48 HOURS Microbiology 05/12/24 02:35 Sputum - Expectorated Sputum Gram Stain - Final 05/12/24 02:35 Sputum - Expectorated Sputum Sputum Culture - Preliminary 05/11/24 05:54 Blood Blood Culture - Preliminary NO GROWTH AFTER 48 HOURS 05/11/24 05:54 Blood Blood Culture - Preliminary NO GROWTH AFTER 48 HOURS Constitutional: Present moderate distress Head: Present normocephalic and atraumatic ENT: Present normal exam, normal oropharynx and mucous membranes moist Neck: Present normal inspection and full ROM Respiratory: Present respiratory distress, rhonchi, diminished air movement and able to speak in complete sentences; Absent wheezes Cardiac: Present S1/S2, Tachycardia and radial pulses present GI: Present soft and distention; Absent tenderness or guarding Skin: Present intact; Absent cyanosis or jaundice Neuro: Present alert, awake and oriented x 3 Extremities: Present normal inspection; Absent clubbing or cyanosis Psychiatric: Present normal affect and cooperative Assessment and Plan *Assessment and plan (1) Septic shock: Status: Acute Category: Medical Code(s): A41.9 - Sepsis, unspecified organism; R65.21 - Severe sepsis with septic shock (2) Acute and chronic respiratory failure with hypoxia: Status: Acute Category: Medical Code(s): J96.21 - Acute and chronic respiratory failure with hypoxia (3) Pleural effusion on right: Status: Acute Category: Medical Code(s): J90 - Pleural effusion, not elsewhere classified (4) Pneumonia: Status: Acute Qualifiers: Laterality: bilateral Category: Medical Code(s): J18.9 - Pneumonia, unspecified organism Plan Mr. Medeiros is a 68-year-old male greater than [id number] smoking history, COPD, status post chemoradiation and immunotherapy, completed radiation and adrenal nodule, subsequently found to have worsening lymphadenopathy and recurrence of cancer currently following with oncology on salvage chemotherapy presented to the ER with worsening respiratory distress and pulmonary was called for further evaluation and management. Patient upon admission found to be in septic shock needing vasopressors including norepinephrine and vasopressin eventually initiating phenylephrine to maintain MAP goal of greater than 65. Patient was initiated on stress dose steroids. Completed sepsis bolus. Gradually improving hemodynamics with decreasing pressor requirements. Leukopenia. Comprehensive respiratory viral PCR panel negative. CTA upon admission no evidence of pulmonary embolism. Worsening lung nodules and lymphadenopathy malignant etiology. Moderate left pleural effusion. No other dense consolidative/airspace changes noted. Patient currently receiving vancomycin and Zosyn on stress dose steroids. DuoNebs every 6 hours along with Pulmicort scheduled. On examination patient does not appear to be in any respiratory distress this morning. Off pressors. Continue to increase needing 1 to 2 L nasal cannula oxygen supplementation. Blood cultures no growth 48 hours. Interval update: No acute respiratory events. Continue to show leukopenia. Pleural fluid Gram stain no organisms seen. Status post diagnostic right-sided thoracentesis removed 1250 ml fluid. Will follow Gram stain culture along with cytology. Plan: Wean antibiotics to levofloxacin to complete a total of 5 day course pending culture results Trelegy 100 inhaler along with DuoNebs 4 times daily as needed Continue nasal cannula oxygen supplementation to maintain O2 saturation of 90% and above # Case discussed with Dr. Ac as a CT imaging concerning for worsening malignant spread with enlarging lung nodules and lymphadenopathy. To be followed as an outpatient basis. # Thank you for involving pulmonary in this patient care. Will continue to follow.
[2024-05-14 11:45] LABS: POC Glucose,Bedside 107 (70-110)
[2024-05-14] MEDS: LEVOFLOXACIN/D5W 750 MG/150 ML 750 MG/150 ML PIGGYBACK 100 MG IV (12:46)
--- NOTE | 2024-05-14 16:43 | PC.NURSE ---
per rufus, okay to stop [facility]
--- NOTE | 2024-05-14 17:34 | P.PN_ITS ---
Subjective *Date: 05/14/24 *Time: 17:34 Interval history: Patient is doing well today, no chest pain, shortness of breath. Has some mild pleurisy with deep inspiration s/p thoracentesis yesterday. ? Incision site clean dry and intact. Exam Data for Last 24 hours Vital signs and Labs for Last 24 Hours: Temp Pulse Resp BP Pulse Ox O2 Del Method O2 Flow Rate 98 F 90 20 122/66 95 Nasal Cannula 1 05/14/24 12:00 05/14/24 12:00 05/14/24 12:00 05/14/24 12:00 05/14/24 12:00 05/14/24 15:00 05/14/24 15:00 FiO2 3 05/13/24 00:00 Laboratory Results - last 24 hr 05/13/24 21:00: POC Glucose 236 H 05/14/24 05:31: WBC 2.6 L, RBC 3.37 L, Hgb 10.3 L, Hct 32.2 L, MCV 95.4 H, MCH 30.6, MCHC 32.1, RDW 15.7, Plt Count 58 L, MPV 10.2, Neut % (Auto) 82.4 H, Lymph % (Auto) 12.2, [place] % (Auto) 5.0, Eos % (Auto) 0.1, Baso % (Auto) 0.3, Neut # (Auto) 2.1, Lymph # (Auto) 0.3 L, [place] # (Auto) 0.1, Eos # (Auto) 0.0, Baso # (Auto) 0.0, Sodium 135 L, Potassium 4.0, Chloride 96 L, Carbon Dioxide 38 H, Anion Gap 5.0, BUN 14, Creatinine 0.60 L, Estimated Creat Clear 68, Estimated GFR 133, Est GFR ( Amer) 161, Glucose 127 H, Calcium 8.1 L, Magnesium 2.2, Total Bilirubin 0.5, AST 27, ALT 19 D, Alkaline Phosphatase 45, Total Protein 5.3 L, Albumin 2.9 L, Globulin 2.4, Albumin/Globulin Ratio 1.2 05/14/24 06:26: POC Glucose 127 H 05/14/24 11:13: POC Glucose 107 I & O for Last 24 hours: Intake & Output 05/11/24 05/12/24 05/13/2424 23:59 23:59 23:59 23:59 Intake Total 1736.864 / 5275.807 1975.430 / 2092.430 1220 / 1340 1080 / 1080 Output Total 850 / 900 1670 / 1720 2250 / 2250 350 / 350 Balance 886.864 / 836.864 372.430 / 372.430 -1030 / -910 730 / 730 Weight 74.021 kg 74.021 kg 74 kg 70.216 kg Microbiology Reports for the Last 24 Hours: Microbiology 05/13/24 12:40 Thoracic Fluid Gram Stain - Final 05/13/24 12:40 Thoracic Fluid Body Fluid Culture - Preliminary NO GROWTH AFTER 24 HOURS 05/12/24 02:35 Sputum - Expectorated Sputum Gram Stain - Final 05/12/24 02:35 Sputum - Expectorated Sputum Sputum Culture - Preliminary Constitutional Constitutional: no acute distress *Routine HEENT Exam Head: Present normocephalic Eye: Present EOMI and PERRL ENT: Present mucous membranes moist *Routine Neck Exam Neck: Present supple; Absent lymphadenopathy *Routine Respiratory Exam Respiratory: Present CTA bilaterally *Routine Cardiovascular Exam Cardiovascular: Present RRR *Routine Abdominal Exam Abdominal: Present soft and normoactive bowel sounds; Absent tenderness *Routine Extremities Exam Extremities: Absent cyanosis, clubbing or edema *Routine Skin Exam Skin: Present warm; Absent rash *Routine Neurological Exam Neurological: Present alert and oriented X3 Assessment and Plan *Assessment and plan (1) Septic shock: Status: Acute Category: Medical Code(s): A41.9 - Sepsis, unspecified organism; R65.21 - Severe sepsis with septic shock (2) Acute on chronic respiratory failure with hypoxia and hypercapnia: Status: Chronic Category: Medical Code(s): J96.21 - Acute and chronic respiratory failure with hypoxia; J96.22 - Acute and chronic respiratory failure with hypercapnia (3) Pneumonia: Status: Acute Qualifiers: Laterality: bilateral Category: Medical Code(s): J18.9 - Pneumonia, unspecified organism (4) Neutropenia: Status: Acute Category: Medical Code(s): D70.9 - Neutropenia, unspecified (5) Thrombocytopenia: Status: Acute Category: Medical Code(s): D69.6 - Thrombocytopenia, unspecified (6) Non-ST elevated myocardial infarction (non-STEMI): Status: Acute Category: Medical Code(s): I21.4 - Non-ST elevation (NSTEMI) myocardial infarction (7) Metastatic malignant neoplasm: Status: Acute Category: Medical Code(s): C79.9 - Secondary malignant neoplasm of unspecified site (8) Pleural effusion on right: Status: Acute Category: Medical Code(s): J90 - Pleural effusion, not elsewhere classified (9) BPH (benign prostatic hyperplasia): Status: Acute Category: Medical Code(s): N40.0 - Benign prostatic hyperplasia without lower urinary tract symptoms (10) Malignant neoplasm of lung: Status: Acute Qualifiers: Laterality: unspecified laterality Lung location: overlapping sites Qualified Code(s): C34.80 - Malignant neoplasm of overlapping sites of unspecified bronchus and lung Category: Medical Code(s): C34.90 - Malignant neoplasm of unspecified part of unspecified bronchus or lung (11) PAF (paroxysmal atrial fibrillation): Status: Acute Category: Medical Code(s): I48.0 - Paroxysmal atrial fibrillation (12) COPD (chronic obstructive pulmonary disease): Status: Chronic Qualifiers: COPD type: emphysema Emphysema type: unspecified Qualified Code(s): J43.9 - Emphysema, unspecified Category: Medical Code(s): J44.9 - Chronic obstructive pulmonary disease, unspecified (13) CHF (congestive heart failure): Status: Chronic Qualifiers: Heart failure type: diastolic Heart failure chronicity: chronic Qualified Code(s): I50.32 - Chronic diastolic (congestive) heart failure Category: Medical Code(s): I50.9 - Heart failure, unspecified (14) CAD (coronary artery disease): Status: Chronic Qualifiers: Coronary Disease-Associated Artery/Lesion type: [place] artery [place] vs. transplanted heart: [place] heart Associated angina: without angina Qualified Code(s): I25.10 - Atherosclerotic heart disease of [place] coronary artery without angina pectoris Category: Medical Code(s): I25.10 - Atherosclerotic heart disease of [place] coronary artery without angina pectoris (15) HLD (hyperlipidemia): Status: Chronic Qualifiers: Hyperlipidemia type: mixed hyperlipidemia Qualified Code(s): E78.2 - Mixed hyperlipidemia Category: Medical Code(s): E78.5 - Hyperlipidemia, unspecified Plan 68-year-old male with history of metastatic lung cancer, CAD, thrombocytopenia, neutropenia, recurrent pleural effusion who presented in septic shock to the ER. Discussed case with ER physician, request admission to ICU for further management. Showing improvement. Off pressors for over 24 hours. IR consulted for thoracentesis. Fluid studies pending. De-escalate to stepdown level of care. Monitor overnight. Problems addressed as follows. Septic shock, resolved Pneumonia Pleural effusion s/p thoracentesis Acute on chronic hypoxemic respiratory failure -A-fib controlled, converted to sinus rhythm 05/13/2024. Tolerating metoprolol -Discussed case with pulmonology, s/p thoracentesis with IR 05/13/2024. Discontinued vancomycin and steroids. Continue nasal cannula oxygen, goal sats greater 90%. Wean as tolerated. DuoNebs every 6 hours and Pulmicort twice daily. If does well overnight, anticipate discharge tomorrow -Started Levaquin, discontinued Zosyn after discussing with pulmonology. Patient continues to be stable tomorrow, anticipate discharge. - Sputum showing gram-positive cocci, pending speciation. Blood cultures negative to date. ? WBC 2.6 in the setting of malignancy with mets. Neutropenia Thrombocytopenia -Blood levels chronically low, white count 3.0, platelets 57. Baseline platelets 90-100. Will hold on anticoagulation. Hemoglobin 10. Repeat CBC, CMP, magnesium ordered for the morning. ? In the setting of lung malignancy with mets. A-fib with RVR Type II NSTEMI CAD -On metoprolol at home to help control heart rate. No anticoagulation due to thrombocytopenia. Heart rate in and out of sinus and A-fib. Increase metoprolol back to 50 mg tartrate twice daily. Hypothyroid: Continue levothyroxine 150 mcg daily Gout: Continue allopurinol 300 mg daily DNR Regular diet
[2024-05-14] MEDS: TAMSULOSIN 0.4MG CAPSULE 0.4 MG PO (20:05)
[2024-05-15] VITALS (7 sets, daily range): BP systolic 92–111; BP diastolic 56–76; PULSE 80–152; RESP 16–19; TEMP 36.4–36.8; O2SAT 93–96; BMI 24.8
--- NOTE | 2024-05-15 05:08 | ECG_ITS ---
APPROVED REPORT Exam: Resting ECG HR:124 bpm ECG Measurements Heart Rate 124 AXES QRSd 113 QRS 255 QT 293 T 83 QTc 367 Conclusion ATRIAL FLUTTER/TACHYCARDIA WITH RAPID VENTRICULAR RESPONSE RIGHT AXIS DEVIATION [QRS AXIS > 100] LOW QRS VOLTAGE IN EXTREMITY LEADS [QRS DEFLECTION < 0.5 mV IN LIMB LEADS] PATTERN CONSISTENT WITH PULMONARY DISEASE INCOMPLETE RIGHT BUNDLE BRANCH BLOCK [90+ ms QRS DURATION, TERMINAL R IN V1/V2, 40+ ms S IN I/aVL/V4/V5/V6] ABNORMAL ECG UNCONFIRMED REPORT Electronically signed by : Clark Garland MD 05/15/2024 08:34:09
[2024-05-15] MEDS: 0.9 % SODIUM CHLORIDE 1000ML 1,000 ML 999 ML IV (05:16)
--- NOTE | 2024-05-15 05:33 | PC.NURSE ---
Notified by [facility] at approximately 0445 of patients elevated HR
[2024-05-15] MEDS: FLUTICASONE/UMECLIDIN/VILANTER 100/62.5/25MCG INHALER 1 PUFF IH (06:31)
[2024-05-15 06:56] LABS: Chloride 98 mmol/L (98-107)
[2024-05-15 06:57] LABS: Albumin Level 2.8 g/dl (3.5-5.0); Potassium 3.6 mmoL/L (3.5-5.1); Sodium 137 mmol/L (136-145)
[2024-05-15 06:59] LABS: Blood Urea Nitrogen 14 mg/dl (9-20); Creatinine Clearance Estimated 74 mL/min (50-200); Estimated Glomerular Filt Rate 133 ml/min (>60); GFR (African American) 161 ML/MIN (>60)
[2024-05-15] MEDS: LEVOTHYROXINE 150MCG (0.15MG)TAB 150 MCG PO (06:59)
[2024-05-15 07:00] LABS: Alanine Aminotransferase 36 U/L (12-78); Albumin/Globulin Ratio 1.2 (1.1-1.8); Alkaline Phosphatase 44 U/L (38-126); Aspartate Amino Transferase 42 U/L (17-59); Bilirubin,Total 0.5 mg/dl (0.2-1.3); Calcium 8.2 mg/dl (8.4-10.2); Globulin 2.3 g/dL (1.3-3.2); Glucose 92 mg/dl (74-100); Total Protein,Serum 5.1 g/dl (6.3-8.2)
[2024-05-15 07:07] LABS: Anion Gap 8.6 mEq/L (5-15); Carbon Dioxide 34 mmol/L (22.0-30.0)
[2024-05-15] MEDS: ALLOPURINOL 300MG TABLET 300 MG PO (08:01)
[2024-05-15] MEDS: METOPROLOL TARTRATE 50MG TABLET 50 MG PO (08:01)
[2024-05-15] MEDS: MAGNESIUM OXIDE 400MG TABLET 400 MG PO (08:01)
[2024-05-15] MEDS: FAMOTIDINE 20MG TABLET 20 MG PO (08:01)
[2024-05-15] MEDS: DOCUSATE SODIUM 100 MG CAPSULE PO (08:01)
--- NOTE | 2024-05-15 08:18 | ECG_ITS ---
APPROVED REPORT Exam: Resting ECG HR:140 bpm ECG Measurements Heart Rate 140 AXES QRSd 105 QRS 251 QT 266 T 83 QTc 347 Conclusion ATRIAL FLUTTER/TACHYCARDIA WITH RAPID VENTRICULAR RESPONSE WITH ABERRANT CONDUCTION OR VENTRICULAR PREMATURE COMPLEXES RIGHT AXIS DEVIATION [QRS AXIS > 100] S1-S2-S3 PATTERN, CONSISTENT WITH PULMONARY DISEASE, RVH, OR NORMAL VARIANT PATTERN CONSISTENT WITH PULMONARY DISEASE INCOMPLETE RIGHT BUNDLE BRANCH BLOCK [90+ ms QRS DURATION, TERMINAL R IN V1/V2, 40+ ms S IN I/aVL/V4/V5/V6] ABNORMAL ECG INTERPRETATION BASED ON A DEFAULT AGE OF 40 YEARS UNCONFIRMED REPORT Electronically signed by : Clark Garland MD 05/17/2024 09:05:15
[2024-05-15] MEDS: METOPROLOL TARTRATE 5MG/5ML VIAL 5 MG IV (08:32)
[2024-05-15 08:52] LABS: Basophils % 0.7 % (0.1-2.0); Eosinophils # 0.1 K/mm3 (0.0-0.4); Eosinophils % 2.1 % (0.1-12.0); Hematocrit 33.4 % (42.0-52.0); Hemoglobin 10.8 g/dL (14.1-18.0); Lymphocytes # 0.7 K/mm3 (0.7-4.5); Lymphocytes % 29.6 % (10-50); Mean Corpuscular HGB Conc 32.3 g/dL (31.8-35.4); Mean Corpuscular Hemoglobin 30.2 pg (27.0-31.2); Mean Corpuscular Volume 93.7 fl (80-94); Mean Platelet Volume 10.2 fl (7.4-10.4); Monocytes # 0.2 K/mm3 (0.1-1.0); Monocytes % 6.5 % (1.7-9.3); Neutrophils # 1.5 K/mm3 (1.8-7.8); Neutrophils % 61.1 % (37.0-80.0); Platelet Count 61 K/mm3 (142-424); Red Blood Count 3.56 M/mm3 (4.60-6.20); Red Cell Distribution Width 15.9 % (11.5-17.5); White Blood Count 2.5 K/mm3 (4.8-10.8)
--- NOTE | 2024-05-15 09:28 | CA_ITS ---
APPROVED REPORT EXAM: Comprehensive 2D, Doppler, and color-flow Echocardiogram Decal Cutter: Galina Corrigan RT(R) Ht: 5 ft 8 in Wt: 159lbs BSA: 1.85 HR: 105 bpm BP: 122/66 mmHg Indications: septic shock, elevated troponins, CAD, hx MT, lung cancer, AFIB, CHF, thoracentesis 05/13/24, SOB, hyperlipidemia. Limited scan secondary to lung impedance. M-Mode Dimensions RVDd 3.25 cm (0.9-2.6) LVDd 3.79 cm (3.5-5.7) LVDs 3.47 cm (3.5-5.7) IVSd 0.72 cm (0.6-1.1) PWd 0.72 cm (0.6-1.1) EF (Teich) 19.20% FS 8.40% EDV (Teich) 61.60 mL ESV (Teich) 49.80 mL Tricuspid Valve TR P. Velocity 269.00 cm/s RAP Estimate 10.00 mmHg RVSP 38.90 mmHg Left Ventricle The left ventricle is normal size. Left ventricular systolic function is moderate to severely decreased. There is increased LV wall thickness. The septum is asynchronous. Diastolic function is indeterminate. LVEF is estimated at 30%. Right Ventricle Right ventricle is not very well-visualized, but is likely severely dilated with severe reduction in RV function. Atria The left atrium is not well-visualized. The right atrium is not well-visualized. Aortic Valve The aortic valve is mildly thickened. Transaortic gradients could not be obtained to evaluate for aortic stenosis. Mild aortic regurgitation. Mitral Valve The mitral valve leaflets are mildly thickened. Transmitral gradients could not be obtained to evaluate for mitral stenosis. Trace mitral regurgitation. Tricuspid Valve The tricuspid valve leaflets are thin and pliable. Mild tricuspid regurgitation. RVSP is 30 mmHg + RA pressure. Pulmonic Valve The pulmonic valve is not well-visualized. Great Vessels The aortic root is not well-visualized. The IVC is not well-visualized. Pericardium No obvious pericardial effusion is present, however not all views could be obtained in the study. Other Information Study Quality: Technically Difficult Conclusion Technically very difficult study due to poor acoustic windows, history of lung disease, and inability to position patient. Moderate to severe reduction global LV systolic function. LVEF is mass estimated at 30%. RV not very well-visualized, but is likely severely dilated with severe reduction in RV function. The atria are not well-visualized. Limited assessment of the valves in the study. Mild AI and mild TR are present. Future evaluations for LV systolic function are suggested with administration of ultrasound enhancing agent to better delineate the LV endocardial borders. Electronically signed by : Risa Munson MD 05/15/2024 12:22:29
[2024-05-15 09:35] LABS: Magnesium 1.9 mg/dl (1.6-2.3)
--- NOTE | 2024-05-15 09:41 | P.PN_ITS ---
Subjective *Date: 05/15/24 *Time: 11:02 Interval history: No acute respiratory events overnight. Patient denies any new respiratory complaints. Pulmonology Exam Inpatient Vital signs and Labs for Last 24 Hours: Temp Pulse Resp BP Pulse Ox O2 Del Method O2 Flow Rate 98.2 F 130 H 19 110/76 93 L Nasal Cannula 1 05/15/24 07:46 05/15/24 08:00 05/15/24 07:46 05/15/24 07:46 05/15/24 07:46 05/15/24 07:46 05/15/24 07:46 FiO2 3 05/13/24 00:00 Laboratory Results - last 24 hr 05/14/24 11:13: POC Glucose 107 05/15/24 05:00: WBC 2.5 L, RBC 3.56 L, Hgb 10.8 L, Hct 33.4 L, MCV 93.7, MCH 30.2, MCHC 32.3, RDW 15.9, Plt Count 61 L, MPV 10.2, Neut % (Auto) 61.1, Lymph % (Auto) 29.6, [place] % (Auto) 6.5, Eos % (Auto) 2.1, Baso % (Auto) 0.7, Neut # (Auto) 1.5 L, Lymph # (Auto) 0.7, [place] # (Auto) 0.2, Eos # (Auto) 0.1, Baso # (Auto) 0.0 05/15/24 05:19: Sodium 137, Potassium 3.6, Chloride 98, Carbon Dioxide 34 H, Anion Gap 8.6, BUN 14, Creatinine 0.60 L, Estimated Creat Clear 74, Estimated GFR 133, Est GFR ( Amer) 161, Glucose 92 D, Calcium 8.2 L, Total Bilirubin 0.5, AST 42 D, ALT 36 D, Alkaline Phosphatase 44, Total Protein 5.1 L, Albumin 2.8 L, Globulin 2.3, Albumin/Globulin Ratio 1.2 Temp Pulse Resp BP Pulse Ox O2 Del Method O2 Flow Rate 97.6 F 65 22 109/57 L 93 L Nasal Cannula 1.5 05/13/24 08:00 05/13/24 09:00 05/13/24 09:00 05/13/24 09:00 05/13/24 09:00 05/13/24 09:00 05/13/24 09:00 FiO2 3 05/13/24 00:00 Laboratory Results - last 24 hr 05/12/24 10:55: POC Glucose 251 H 05/12/24 16:14: POC Glucose 235 H 05/12/24 21:25: POC Glucose 241 H 05/13/24 05:43: WBC 3.0 L, RBC 3.38 L, Hgb 10.4 L, Hct 31.7 L, MCV 93.8, MCH 30.8, MCHC 32.8, RDW 15.5, Plt Count 57 L, MPV 9.3, Neut % (Auto) 85.0 H, Lymph % (Auto) 9.0 L, [place] % (Auto) 5.8, Eos % (Auto) 0.1, Baso % (Auto) 0.1, Neut # (Auto) 2.6, Lymph # (Auto) 0.3 L, [place] # (Auto) 0.2, Eos # (Auto) 0.0, Baso # (Auto) 0.0, Total Counted 100, Neutrophils % (Manual) 83 H, Lymphocytes % (Manual) 14, Monocytes % (Manual) 3, Platelet Estimate Moderate decrease, RBC Morphology Normal, Sodium 131 L, Potassium 3.8, Chloride 92 L, Carbon Dioxide 39 H, Anion Gap 3.8 L, BUN 12 D, Creatinine 0.60 L, Estimated Creat Clear 72, Estimated GFR 133, Est GFR ( Amer) 161, Glucose 148 H, Calcium 8.1 L, Magnesium 2.1 D, Total Bilirubin 0.5, AST 29, ALT 13, Alkaline Phosphatase 38, Total Protein 5.2 L, Albumin 2.9 L, Globulin 2.3, Albumin/Globulin Ratio 1.3 05/13/24 05:44: POC Glucose 157 H I & O for Labs for Last 24 Hours: Intake & Output 05/12/24 05/13/24 05/14/24 05/15/24 23:59 23:59 23:59 23:59 Intake Total 2042.430 / 2092.430 1220 / 1340 1680 / 1680 658 / 658 Output Total 1670 / 1720 2250 / 2250 350 / 350 0 / 0 Balance 372.430 / 372.430 -1030 / -910 1330 / 1330 658 / 658 Weight 163 lb 3.014 oz 163 lb 2.273 oz 154 lb 12.796 oz 167 lb 11.2 oz Intake & Output 05/10/24 05/11/24 05/12/24 05/13/24 23:59 23:59 23:59 23:59 Intake Total 1736.864 / 7034.704 8076.430 / 2092.430 340 / 340 Output Total 850 / 900 1670 / 1720 2100 / 2100 Balance 886.864 / 836.864 372.430 / 372.430 -1760 / -1760 Weight 163 lb 3 oz 163 lb 3.014 oz 163 lb 2.273 oz Microbiology Reports for the Last 24 Hours: Microbiology 05/11/24 05:54 Blood Blood Culture - Preliminary NO GROWTH AFTER 4 DAYS 05/11/24 05:54 Blood Blood Culture - Preliminary NO GROWTH AFTER 4 DAYS 05/13/24 12:40 Thoracic Fluid Gram Stain - Final 05/13/24 12:40 Thoracic Fluid Body Fluid Culture - Preliminary NO GROWTH AFTER 24 HOURS 05/12/24 02:35 Sputum - Expectorated Sputum Gram Stain - Final 05/12/24 02:35 Sputum - Expectorated Sputum Sputum Culture - Preliminary Microbiology 05/12/24 02:35 Sputum - Expectorated Sputum Gram Stain - Final 05/12/24 02:35 Sputum - Expectorated Sputum Sputum Culture - Preliminary 05/11/24 05:54 Blood Blood Culture - Preliminary NO GROWTH AFTER 48 HOURS 05/11/24 05:54 Blood Blood Culture - Preliminary NO GROWTH AFTER 48 HOURS Constitutional: Present moderate distress Head: Present normocephalic and atraumatic ENT: Present normal exam, normal oropharynx and mucous membranes moist Neck: Present normal inspection and full ROM Respiratory: Present respiratory distress, rhonchi and able to speak in complete sentences; Absent prolonged expiratory phase or wheezes Cardiac: Present S1/S2, Tachycardia and radial pulses present GI: Present soft and distention; Absent tenderness or guarding Skin: Present intact; Absent cyanosis or jaundice Neuro: Present alert, awake and oriented x 3 Extremities: Present normal inspection; Absent clubbing or cyanosis Psychiatric: Present normal affect and cooperative Assessment and Plan *Assessment and plan (1) Septic shock: Status: Acute Category: Medical Code(s): A41.9 - Sepsis, unspecified organism; R65.21 - Severe sepsis with septic shock (2) Acute and chronic respiratory failure with hypoxia: Status: Acute Category: Medical Code(s): J96.21 - Acute and chronic respiratory failure with hypoxia (3) Pleural effusion on right: Status: Acute Category: Medical Code(s): J90 - Pleural effusion, not elsewhere classified (4) Pneumonia: Status: Acute Qualifiers: Laterality: bilateral Category: Medical Code(s): J18.9 - Pneumonia, unspecified organism Plan Mr. Medeiros is a 68-year-old male greater than [id number] smoking history, COPD, status post chemoradiation and immunotherapy, completed radiation and adrenal nodule, subsequently found to have worsening lymphadenopathy and recurrence of cancer currently following with oncology on salvage chemotherapy presented to the ER with worsening respiratory distress and pulmonary was called for further evaluation and management. Patient upon admission found to be in septic shock needing vasopressors including norepinephrine and vasopressin eventually initiating phenylephrine to maintain MAP goal of greater than 65. Patient was initiated on stress dose steroids. Completed sepsis bolus. Gradually improving hemodynamics with decreasing pressor requirements. Leukopenia. Comprehensive respiratory viral PCR panel negative. CTA upon admission no evidence of pulmonary embolism. Worsening lung nodules and lymphadenopathy malignant etiology. Moderate left pleural effusion. No other dense consolidative/airspace changes noted. Patient currently receiving vancomycin and Zosyn on stress dose steroids. DuoNebs every 6 hours along with Pulmicort scheduled. On initial examination patient does not appear to be in any respiratory distress this morning. Off pressors. Continue to increase needing 1 to 2 L nasal cannula oxygen supplementation. Blood cultures no growth so far Status post diagnostic right-sided thoracentesis removed 1250 ml fluid. Will follow ytology. Pleural fluid Gram stain no organisms seen. Interval update: No acute respiratory events. Continue to show leukopenia. A-fib RVR overnight, cardiology following. Stable oxygen remains at 1 L. Antibiotics weaned to levofloxacin yesterday. No acute changes Plan: Continue levofloxacin to complete a total of 5 day course from pulmonary standpoint for the concerning pneumonia Trelegy 100 inhaler along with DuoNebs 4 times daily as needed Continue nasal cannula oxygen supplementation to maintain O2 saturation of 90% and above # Case discussed with Dr. Ac as a CT imaging concerning for worsening malignan t spread with enlarging effusion, lung nodules and lymphadenopathy. To be followed as an outpatient basis. # Thank you for involving pulmonary in this patient care. Will follow the patient in pulmonary clinic 5 to 7 days postdischarge
[2024-05-15] MEDS: KCl 20mEq/100ml 100 ML 50 MEQ IV ×2 (09:43→11:47)
[2024-05-15] MEDS: LEVOFLOXACIN/D5W 750 MG/150 ML 750 MG/150 ML PIGGYBACK 100 MG IV (10:48)
--- NOTE | 2024-05-15 11:16 | CARE MANAGER ---
Patient has a mobility impairment that cannot be corrected with a can but there is potential for ambulation. ADRIANNA Lieberman
--- NOTE | 2024-05-15 12:06 | P.CONCA_ITS ---
History of Present Illness History of Present Illness Consult date: 05/15/24 Requesting physician: Nikos Otero Consult reason: atrial fibrillation Chief complaint: weakness and AMS History of present illness: 68-year-old white male established office patient admitted with septic shock and neutropenic fever. We are consulted for assistance with managing A-fib RVR recommendations at discharge. Patient has history of drug-eluting stents 20 years ago, known paroxysmal atrial fibrillation, no OAC due to chronic thrombocytopenia from cancer, history of metastatic lung cancer on chemotherapy- followed by Dr. Sosa and Dr. Ac here. Patient has chronic hypoxic respiratory failure on 2 to 3 L/min at baseline. Patient presented to the emergency room here on 05/11 with weakness and altered mental status. In ED he was found to have temp of 104, hypoxic, septic shock. He required vasopressors x 3 and O2 was uptitrated to 6 L/min. Patient was diagnosed with pneumonia in his right lung. He also had thoracentesis of the right lung. Was temporarily off of his at home dose beta-blockers due to the hypotension and need for vasopressors. WBC 2.4, platelets 57. Patient has since stabilized and is having episodes of atrial fibrillation on home dose of metoprolol tartrate 50 mg. He was given IV dose 5 mg which improved rate significantly and patient was asymptomatic. Currently denies cardiac symptoms. [facility] Disclaimer: The information contained in this section may have been updated after the patient was seen, as this information can be updated by other users. Medical History Acute and chronic respiratory failure with hypoxia Radiation esophagitis Esophageal stricture Pleural effusion on right Acute respiratory failure with hypoxia Acute hypercapnic respiratory failure Acute exacerbation of chronic obstructive pulmonary disease Acute hypoxic on chronic hypercapnic respiratory failure COPD (chronic obstructive pulmonary disease) Olecranon bursitis of right elbow Elbow mass Swelling Hilar lymphadenopathy Allergic rhinitis History of lung or bronchial cancer Mediastinal lymphadenopathy History of esophageal dilatation Sinusitis Gynecomastia Discharge from left nipple PAF (paroxysmal atrial fibrillation) COPD (chronic obstructive pulmonary disease) Dyspnea on exertion Malignant neoplasm of unspecified part of unspecified bronchus or lung Pulmonary emphysema Smoking greater than 30 pack years Lung nodule Tobacco abuse counseling HAP (hospital-acquired pneumonia) Influenza A Acute on chronic respiratory failure with hypoxia and hypercapnia Urinary tract infection Tobacco abuse AAA (abdominal aortic aneurysm) Melanoma Thyroid disease Sinus problem History of radiation therapy History of chemotherapy Cataract Myocardial infarction Lung disease DVT (deep venous thrombosis) Cancer Atherosclerotic heart disease Hypotension HLD (hyperlipidemia) Abnormal EKG CAD (coronary artery disease) CHF (congestive heart failure) Gout Tobacco abuse disorder Hypertension Hypothyroidism COPD exacerbation Surgical History H/O melanoma excision History of heart artery stent History of cardiac cath History of colonoscopy Family History Other AAA (abdominal aortic aneurysm) Coronary artery disease Gout Heart attack Hypertension Social History Smoking Status: Current every day smoker tobacco type: cigarettes packs per day: 1 alcohol intake: former substance use type: denies use 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ional status: retired and disabled Travel in the last 8 weeks: None household members: spouse housing: house lives independently: No marital status: education level: high school service: No retirement: No caffeine: No special honey needs: No agree to transfusion: No do you feel safe at home: Yes victim of physical abuse: No victim of emotional abuse: No victim of sexual abuse: No would you like helpful sources: No Review of Systems Constitutional Constitutional: Reports fatigue and Reports weakness Eyes Eyes: Denies loss of vision ENT Ears, Nose, Mouth, and Throat: Denies hearing loss and Denies vertigo *Cardiovascular Cardiovascular: Denies chest pain, Denies dyspnea and Denies syncope *Respiratory Respiratory: Denies cough and Denies dyspnea *Gastrointestinal Gastrointestinal: Denies change in stool character, Denies nausea and Denies vomiting *Genitourinary Genitourinary: Denies difficulty urinating *Musculoskeletal Musculoskeletal: Denies muscle weakness Integumentary/Breasts Skin/Breast: Denies changing lesions *Neurologic Neurologic: Denies loss of vision, Denies syncope, Denies vertigo and Reports weakness Endocrine Endocrine: Reports fatigue Exam Data for Last 24 hours Vital signs and Labs for Last 24 Hours: Temp Pulse Resp BP Pulse Ox O2 Del Method O2 Flow Rate 98.2 F 130 H 19 110/76 93 L Nasal Cannula 1 05/15/24 07:46 05/15/24 08:00 05/15/24 07:46 05/15/24 07:46 05/15/24 07:46 05/15/24 11:00 05/15/24 11:00 FiO2 3 05/13/24 00:00 Laboratory Results - last 24 hr 05/15/24 05:00: WBC 2.5 L, RBC 3.56 L, Hgb 10.8 L, Hct 33.4 L, MCV 93.7, MCH 30.2, MCHC 32.3, RDW 15.9, Plt Count 61 L, MPV 10.2, Neut % (Auto) 61.1, Lymph % (Auto) 29.6, [place] % (Auto) 6.5, Eos % (Auto) 2.1, Baso % (Auto) 0.7, Neut # (Auto) 1.5 L, Lymph # (Auto) 0.7, [place] # (Auto) 0.2, Eos # (Auto) 0.1, Baso # (Auto) 0.0, Magnesium 1.9 D 05/15/24 05:19: Sodium 137, Potassium 3.6, Chloride 98, Carbon Dioxide 34 H, Anion Gap 8.6, BUN 14, Creatinine 0.60 L, Estimated Creat Clear 74, Estimated GFR 133, Est GFR ( Amer) 161, Glucose 92 D, Calcium 8.2 L, Total Bilirubin 0.5, AST 42 D, ALT 36 D, Alkaline Phosphatase 44, Total Protein 5.1 L, Albumin 2.8 L, Globulin 2.3, Albumin/Globulin Ratio 1.2 I & O for Last 24 hours: Intake & Output 05/12/24 05/13/24 05/14/24 05/15/24 23:59 23:59 23:59 23:59 Intake Total 2042.430 / 2092.430 1220 / 1340 1680 / 1680 658 / 658 Output Total 1670 / 1720 2250 / 2250 350 / 350 0 / 0 Balance 372.430 / 372.430 -1030 / -910 1330 / 1330 658 / 658 Weight 163 lb 3.014 oz 163 lb 2.273 oz 154 lb 12.796 oz 167 lb 11.2 oz Microbiology Reports for the Last 24 Hours: Microbiology 05/12/24 02:35 Sputum - Expectorated Sputum Gram Stain - Final 05/12/24 02:35 Sputum - Expectorated Sputum Sputum Culture - Final 05/11/24 05:54 Blood Blood Culture - Preliminary NO GROWTH AFTER 4 DAYS 05/11/24 05:54 Blood Blood Culture - Preliminary NO GROWTH AFTER 4 DAYS 05/13/24 12:40 Thoracic Fluid Gram Stain - Final 05/13/24 12:40 Thoracic Fluid Body Fluid Culture - Preliminary NO GROWTH AFTER 24 HOURS Constitutional Constitutional: no acute distress and cooperative *Routine HEENT Exam Eye: Present PERRL *Routine Respiratory Exam Respiratory: Present CTA bilaterally; Absent accessory muscle use, wheezes or crackles *Routine Cardiovascular Exam Cardiovascular: Present RRR, Normal S1 and Normal S2; Absent murmur, gallop or rubs *Routine Abdominal Exam Abdominal: Present soft; Absent tenderness *Routine Extremities Exam Extremities: Present pulses intact; Absent cyanosis or edema *Routine Skin Exam Skin: Present intact; Absent erythema or wounds *Routine Neurological Exam Neurological: Present alert and oriented X3 Routine Psychiatric Exam Psychiatric: Present cooperative Meds Home Medications and Allergies Home Medications ?Medication ?Instructions ?Recorded ?Confirmed ?Type aspirin 81 mg tablet,delayed 81 mg PO DAILY 08/24/20 05/12/24 History release azelastine 137 mcg (0.1 %) nasal 2 spray intranasal HS 90 days #30 09/11/23 05/12/24 Rx spray mL levothyroxine 150 mcg tablet 150 mcg PO DAILY #90 tabs 12/12/23 05/12/24 Rx alfuzosin 10 mg tablet,extended 10 mg PO DAILY 90 days #90 tabs 12/25/23 05/12/24 Rx release 24 hr docusate sodium 100 mg tablet 100 mg PO DAILY 03/08/24 05/12/24 History folic acid 1 mg tablet 1 mg PO DAILY 03/08/24 05/12/24 History ondansetron 4 mg disintegrating 4 mg PO Q6H PRN Nausea And Vomiting 03/08/24 05/12/24 History tablet polyethylene glycol 3350 17 17 g PO DAILYP PRN Constipation 03/08/24 05/12/24 History gram/dose oral powder (Miralax) metoprolol succinate 50 mg 50 mg PO HS #90 tabs 03/11/24 05/12/24 Rx tablet,extended release 24 hr (Toprol XL) lovastatin 40 mg tablet 40 mg PO HS 30 days #30 tabs 03/25/24 05/12/24 Rx fluticasone fur. 100 mcg-umeclid 1 inh inhalation DAILY 90 days #90 03/27/24 05/12/24 Rx 62.5 mcg-vilant 25 mcg ea inhalat.powder (Trelegy Ellipta) furosemide 20 mg tablet 20 mg PO DAILYP PRN Fluid 05/01/24 05/12/24 History allopurinol 300 mg tablet 300 mg PO DAILY 90 days #90 tabs 05/10/24 05/12/24 Rx New Prescriptions to Start Prescriptions: Allergies Allergy/AdvReac Type Severity Reaction Status Date / Time No Known Drug Allergies Allergy Unknown Unknown Verified 05/11/24 08:19 [NKDA] allergy reaction Assessment and Plan *Assessment and plan (1) Atrial fibrillation with rapid ventricular response: Status: Acute Category: Medical Code(s): I48.91 - Unspecified atrial fibrillation (2) Septic shock: Status: Acute Category: Medical Code(s): A41.9 - Sepsis, unspecified organism; R65.21 - Severe sepsis with septic shock (3) Non-ST elevated myocardial infarction (non-STEMI): Status: Acute Category: Medical Code(s): I21.4 - Non-ST elevation (NSTEMI) myocardial infarction (4) Acute on chronic respiratory failure with hypoxemia: Status: Acute Category: Medical Code(s): J96.21 - Acute and chronic respiratory failure with hypoxia (5) Pleural effusion on right: Status: Acute Category: Medical Code(s): J90 - Pleural effusion, not elsewhere classified Plan PAF, RVR - known dx - was off BB due to hypotension in setting of septic shock - shock resolved, now tolerting his home dose Metoprolol 50mg BID - discussed case with Hospitalist. We will try increase Metoprolol to 75mg BID at discharge and place a 2 week event monitor - pt can f/u with us in office in 2 weeks. If he has further trouble with A- fib we may consider adding Amiodarone CAD s/p Ar approx 20 years ago - EKG - A-fib here, pt denies chest pain - no DAPT or OAC due to chronic and sever thrombocytopenia (platelets 57) - cont BB and statin - pt had Trop up to 1.1 in setting of septic shock - will check ECHO for new WMA, otherwise can f/u on ischemia as outpatient. He would be poor candidate for intervention at least at this time due to DAPT/Thrombocytopenia contraindication Metastatic lung cancer -On chemotherapy -Followed by pulmonology and hematology here at [facility] Septic shock -Appears to be secondary to pneumonia, patient was neutropenic and received flu vaccine, symptoms started the next day -He has been on broad-spectrum antibiotics and is seeing significant improve ment, off pressors *Increase metoprolol to 75 mg p.o. twice daily for added rate control. 2-week monitor to be placed at discharge. Will add in chart following echo. Likely okay for discharge later today.
--- NOTE | 2024-05-15 13:17 | P.DS_ITS ---
General Admission date:: 05/11/24 HPI HPI HPI: Mr. Medeiros is a 68-year-old male with history of metastatic lung cancer, CHF, COPD on 2 to 3 L nasal cannula at baseline who presented to the ER with complaint of weakness and altered mental status. He woke up this morning to go to the bathroom and felt more weak and was slightly confused. When family checked on him shortly thereafter, he was not responding to them. Of note, patient reports receiving his flu shot yesterday. When patient was unresponsive, he was warm to touch. EMS was called for assistance. On arrival, patient was noted to have a temperature of 100.1. Hypoxic. Noted to have Rales and wheeze. Administer DuoNebs along with Solu-Medrol and transported him to the ER for further management. Initial GCS of 10 upon EMS evaluation. On arrival to the ER, patient found to be in septic shock with tachycardia, leukopenia with white count of 2, hypotension not responsive to fluid bolus necessitating vasopressors. Increased oxygen requirement of 6 L. Medicine co nsulted for admission to ICU and further management of septic shock. Chest imaging with CT concerning for effusion that is recurrent and likely malignant along with pneumonia in right lung. On arrival to the floor, patient remains hypotensive with MAP in the 50s. He is alert and interactive. Answering questions somewhat, does not recall coming to the hospital. Is disoriented to time but knows who he is and that he is at the hospital. Says he is breathing a little bit better on 6 L. Still febrile. Temperature of 104 in the ER, improved to 101. Currently on norepinephrine, vasopressin, initiating phenylephrine due to persistent hypotension. Finishing sepsis bolus with an additional 500 cc of normal saline. Hospital Course Hospital Course Hospital Course: 68-year-old male with history of metastatic lung cancer, CAD, thrombocytopenia, neutropenia, recurrent pleural effusion who presented in septic shock to the ER. Discussed case with ER physician, request admission to ICU for further management. Showing improvement. Off pressors for over 24 hours. IR consulted for thoracentesis. Fluid studies pending. De-escalate to stepdown level of care. Monitor overnight. Problems addressed as follows. Septic shock, resolved Pneumonia Pleural effusion s/p thoracentesis Acute on chronic hypoxemic respiratory failure - Clinically improved with vancomycin and Zosyn, transitioned to Levaquin. - Pulmonlogy consulted, S/p diagnostic right-sided thoracentesis removed 1250 ml fluid. Will follow cytology. Pleural fluid Gram stain no organisms seen. - Discharged with Levaquin for 3 more days, and closed follow-up with pulmonology within 1 week. Neutropenia Thrombocytopenia - WBC 2.5, platelets 61. ? In the setting of lung malignancy with mets. A-fib with RVR Type II NSTEMI CAD -On metoprolol at home to help control heart rate. No anticoagulation due to thrombocytopenia. Heart rate in and out of sinus and A-fib. Increase metoprolol back to 50 mg tartrate twice daily. #Severe biventricular failure - ECHO LVEF 30%, cardiology discussed with patient. Patient is not interested in [employer] and cards did not think he was a good candidate for GDMT - Will follow-up with cardiology within 2 weeks. Discharged with 2 week event monitor. Exam Data for Last 24 hours Vital signs and Labs for Last 24 Hours: Temp Pulse Resp BP Pulse Ox O2 Del Method O2 Flow Rate 97.9 F 81 19 110/57 L 93 L Nasal Cannula 1 05/15/24 12:00 05/15/24 12:00 05/15/24 12:00 05/15/24 12:00 05/15/24 12:00 05/15/24 12:00 05/15/24 12:00 FiO2 3 05/13/24 00:00 Laboratory Results - last 24 hr 05/15/24 05:00: WBC 2.5 L, RBC 3.56 L, Hgb 10.8 L, Hct 33.4 L, MCV 93.7, MCH 30.2, MCHC 32.3, RDW 15.9, Plt Count 61 L, MPV 10.2, Neut % (Auto) 61.1, Lymph % (Auto) 29.6, [place] % (Auto) 6.5, Eos % (Auto) 2.1, Baso % (Auto) 0.7, Neut # (Auto) 1.5 L, Lymph # (Auto) 0.7, [place] # (Auto) 0.2, Eos # (Auto) 0.1, Baso # (Auto) 0.0, Magnesium 1.9 D 05/15/24 05:19: Sodium 137, Potassium 3.6, Chloride 98, Carbon Dioxide 34 H, Anion Gap 8.6, BUN 14, Creatinine 0.60 L, Estimated Creat Clear 74, Estimated GFR 133, Est GFR ( Amer) 161, Glucose 92 D, Calcium 8.2 L, Total Bilirubin 0.5, AST 42 D, ALT 36 D, Alkaline Phosphatase 44, Total Protein 5.1 L, Albumin 2.8 L, Globulin 2.3, Albumin/Globulin Ratio 1.2 I & O for Last 24 hours: Intake & Output 05/12/24 05/13/24 05/14/24 05/15/24 23:59 23:59 23:59 23:59 Intake Total 2042.430 / 2092.430 1220 / 1340 1680 / 1680 658 / 658 Output Total 1670 / 1720 2250 / 2250 350 / 350 0 / 0 Balance 372.430 / 372.430 -1030 / -910 1330 / 1330 658 / 658 Weight 74.021 kg 74 kg 70.216 kg 76.067 kg Microbiology Reports for the Last 24 Hours: Microbiology 05/13/24 12:40 Thoracic Fluid Gram Stain - Final 05/13/24 12:40 Thoracic Fluid Body Fluid Culture - Preliminary NO GROWTH AFTER 48 HOURS 05/12/24 02:35 Sputum - Expectorated Sputum Gram Stain - Final 05/12/24 02:35 Sputum - Expectorated Sputum Sputum Culture - Final 05/11/24 05:54 Blood Blood Culture - Preliminary NO GROWTH AFTER 4 DAYS 05/11/24 05:54 Blood Blood Culture - Preliminary NO GROWTH AFTER 4 DAYS Constitutional Constitutional: no acute distress *Routine HEENT Exam Head: Present normocephalic Eye: Present EOMI and PERRL ENT: Present mucous membranes moist *Routine Neck Exam Neck: Present supple; Absent lymphadenopathy *Routine Respiratory Exam Respiratory: Present CTA bilaterally *Routine Cardiovascular Exam Cardiovascular: Present RRR *Routine Abdominal Exam Abdominal: Present soft and normoactive bowel sounds; Absent tenderness *Routine Extremities Exam Extremities: Absent cyanosis, clubbing or edema *Routine Skin Exam Skin: Present warm; Absent rash *Routine Neurological Exam Neurological: Present alert and oriented X3 Results Data Completed and Pending Labs on day of discharge: Labs from last 24 hours 05/15/24 05/15/24 05:19 05:00 WBC 2.5 L RBC 3.56 L Hgb 10.8 L Hct 33.4 L MCV 93.7 MCH 30.2 MCHC 32.3 RDW 15.9 Plt Count 61 L MPV 10.2 Neut % (Auto) 61.1 Lymph % (Auto) 29.6 [place] % (Auto) 6.5 Eos % (Auto) 2.1 Baso % (Auto) 0.7 Neut # (Auto) 1.5 L Lymph # (Auto) 0.7 [place] # (Auto) 0.2 Eos # (Auto) 0.1 Baso # (Auto) 0.0 Sodium 137 Potassium 3.6 Chloride 98 Carbon Dioxide 34 H Anion Gap 8.6 BUN 14 Creatinine 0.60 L Estimated Creat Clear 74 Estimated GFR 133 Est GFR ( Amer) 161 Glucose 92 D Calcium 8.2 L Magnesium 1.9 D Total Bilirubin 0.5 AST 42 D ALT 36 D Alkaline Phosphatase 44 Total Protein 5.1 L Albumin 2.8 L Globulin 2.3 Albumin/Globulin Ratio 1.2 Preliminary micro results at discharge 05/13/24 12:40 Body Fluid Culture - Preliminary Thoracic Fluid NO GROWTH AFTER 48 HOURS 05/11/24 05:54 Blood Culture - Preliminary Blood NO GROWTH AFTER 4 DAYS 05/11/24 05:54 Blood Culture - Preliminary Blood NO GROWTH AFTER 4 DAYS DS: Diagnosis Discharge Diagnosis (1) Atrial fibrillation with rapid ventricular response: Status: Resolved Code(s): I48.91 - Unspecified atrial fibrillation (2) Septic shock: Status: Resolved Code(s): A41.9 - Sepsis, unspecified organism; R65.21 - Severe sepsis with septic shock (3) Non-ST elevated myocardial infarction (non-STEMI): Status: Resolved Code(s): I21.4 - Non-ST elevation (NSTEMI) myocardial infarction Meds Home Medications and Allergies Home Medications ?Medication ?Instructions ?Recorded ?Confirmed ?Type aspirin 81 mg tablet,delayed 81 mg PO DAILY 08/24/20 05/21/24 History release azelastine 137 mcg (0.1 %) nasal 2 spray intranasal HS 90 days #30 09/11/23 05/21/24 Rx spray mL levothyroxine 150 mcg tablet 150 mcg PO DAILY #90 tabs 12/12/23 05/21/24 Rx alfuzosin 10 mg tablet,extended 10 mg PO DAILY 90 days #90 tabs 12/25/23 05/21/24 Rx release 24 hr docusate sodium 100 mg tablet 100 mg PO DAILY 03/08/24 05/21/24 History folic acid 1 mg tablet 1 mg PO DAILY 03/08/24 05/21/24 History ondansetron 4 mg disintegrating 4 mg PO Q6H PRN Nausea And Vomiting 03/08/24 05/21/24 History tablet polyethylene glycol 3350 17 17 g PO DAILYP PRN Constipation 03/08/24 05/21/24 History gram/dose oral powder (Miralax) lovastatin 40 mg tablet 40 mg PO HS 30 days #30 tabs 03/25/24 05/21/24 Rx fluticasone fur. 100 mcg-umeclid 1 inh inhalation DAILY 90 days #90 03/27/24 05/21/24 Rx 62.5 mcg-vilant 25 mcg ea inhalat.powder (Trelegy Ellipta) allopurinol 300 mg tablet 300 mg PO DAILY 90 days #90 tabs 05/10/24 05/21/24 Rx levofloxacin 750 mg tablet 750 mg PO DAILY 3 days #3 tabs 05/15/24 05/21/24 Rx metoprolol tartrate 50 mg tablet 75 mg (1.5 x 50 mg) PO BID 30 days 05/15/24 05/21/24 Rx #90 tabs potassium chloride 20 mEq 20 meq PO DAILY #30 tabs 05/15/24 05/21/24 Rx tablet,extended release midodrine 2.5 mg tablet 2.5 mg PO TID #90 tabs 05/21/24 05/21/24 Rx New Prescriptions to Start Prescriptions: levofloxacin Nikos Otero metoprolol tartrate Nikos Otero potassium chloride Nikos Otero Allergies Allergy/AdvReac Type Severity Reaction Status Date / Time No Known Drug Allergies Allergy Unknown Unknown Verified 05/21/24 10:44 [NKDA] allergy reaction Discharge Plan Disposition Patient Disposition: Home, Self-Care Condition: Fair Discharge Order Discharge Orders: Discharge Order (Routine); Ordered 05/15/24 Ordered By: Nikos Oteor Follow up Plan Follow up with: Sam Pedroza PA [Physician Iuss Analyst] - 05/22/24 11:00 am Armando cA MD [Staff Physician] - 05/21/24 9:30 am Arie Sosa MD [Physician] - 05/22/24 11:40 am Prescriptions/Medication Reconciliation: New metoprolol tartrate 50 mg Tablet 75 mg PO BID 30 Days Qty: 90 0RF levofloxacin 750 mg tablet 750 mg PO DAILY 3 Days Qty: 3 0RF potassium chloride 20 mEq tablet extended release 20 meq PO DAILY Qty: 30 0RF Continued azelastine 137 mcg (0.1 %) aerosol,spray 2 spray intranasal HS 90 Days Qty: 30 2RF Rx Instructions: administer into each nostril levothyroxine 150 mcg tablet 150 mcg PO DAILY Qty: 90 1RF alfuzosin 10 mg tablet extended release 24 hr 10 mg PO DAILY 90 Days Qty: 90 1RF Rx Instructions: administer after the same meal each day lovastatin 40 mg tablet 40 mg PO HS 30 Days Qty: 30 2RF Trelegy Ellipta 100-62.5-25 mcg blister with device 1 inh inhalation DAILY 90 Days Qty: 90 3RF allopurinol 300 mg tablet 300 mg PO DAILY 90 Days Qty: 90 0RF folic acid 1 mg Tablet 1 mg PO DAILY polyethylene glycol 3350 [Miralax] 17 gram/dose Powder 17 g PO DAILYP PRN (Reason: Constipation) docusate sodium 100 mg Tablet 100 mg PO DAILY ondansetron 4 mg Tablet,Disintegrating 4 mg PO Q6H PRN (Reason: Nausea And Vomiting) aspirin 81 mg tablet,delayed release (DR/EC) 81 mg PO DAILY Discontinued furosemide 20 mg tablet 20 mg PO DAILYP PRN (Reason: Fluid) metoprolol succinate [Toprol XL] 50 mg Tablet Extended Release 24 Hr 50 mg PO HS Qty: 90 0RF No Action midodrine 2.5 mg tablet 2.5 mg PO TID Qty: 90 0RF Rx Instructions: do not give last dose of day after 6PM or within 4 hrs of bedtime Other Ambulatory Orders: Home Medical Equipment (Routine) Location: None Selected Ordered By: Nikos Otero Problem Reconciliation Problems Reviewed?: Yes Patient Discharge Instructions ACTIVITY: Continue current activity DIET: continue same diet Additional Instructions: Please follow-up with Dr. Ac and Dr. Sosa within 1 week for further evaluation and management. I have increased your metoprolol tartrate to 75 mg twice a day to help control your heart rate with A-fib. Please follow-up with cardiology within 1 week. You are being sent home with an event monitor for 2 weeks so we will know what your heart rate is at all times. We will call you if there is any abnormal heart rate. Patient Instructions: Septic Shock, Heart-Healthy Diet, DI for Thoracentesis, DI for Surgical Site Infection, DI for Pleural Effusion Print Language: Indonesian Providers Primary Care Provider: Miles Márquez Admit Provider: Jose Mackey Attending Provider: Jose Mackey
--- NOTE | 2024-05-16 14:23 | CARE MANAGER ---
Contacted patient's related to hospital discharge. She states he is doing well. His blood pressure was low this morning, but has seem to gotten better. They are aware of medication changes and new medicines. They are also aware of follow up appointments. Denies questions or concerns. ADRIANNA Lieberman
== END 2024-05-15 16:11 | disposition home or self-care (01) | DRG 871 ==
LOC: ER 07:46 → 2ND 08:01
PROVIDERS: Student in an Organized Health Care Education/Training Program; Admitting Provider Internal Medicine Adolescent Medicine; Emergency Provider Emergency Medicine; PCP Family Medicine; Visit Provider Internal Medicine Adolescent Medicine
DX: A41.9 Sepsis, unspecified organism (principal); I21.A1 Myocardial infarction type 2; J18.9 Pneumonia, unspecified organism; J96.21 Acute and chronic respiratory failure with hypoxia; R65.21 Severe sepsis with septic shock; J96.22 Acute and chronic respiratory failure with hypercapnia; C79.9 Secondary malignant neoplasm of unspecified site; J90 Pleural effusion, not elsewhere classified; C34.80 Malignant neoplasm of overlapping sites of unspecified bronchus and lung; I50.32 Chronic diastolic (congestive) heart failure; J44.0 Chronic obstructive pulmonary disease with (acute) lower respiratory infection; I11.0 Hypertensive heart disease with heart failure; D70.9 Neutropenia, unspecified; D69.6 Thrombocytopenia, unspecified; N40.0 Benign prostatic hyperplasia without lower urinary tract symptoms; I48.0 Paroxysmal atrial fibrillation; J43.9 Emphysema, unspecified; I25.10 Atherosclerotic heart disease of native coronary artery without angina pectoris; E78.2 Mixed hyperlipidemia; Z99.81 Dependence on supplemental oxygen; Z79.899 Other long term (current) drug therapy; F17.210 Nicotine dependence, cigarettes, uncomplicated; Z86.718 Personal history of other venous thrombosis and embolism; Z85.820 Personal history of malignant melanoma of skin; I50.82 Biventricular heart failure
CPT/HCPCS: 32554; 32555; 36415; 36569; 70450; 71045; 71275; 80053; 81001; 82803; 82962; 83605; 83735; 83880; 84484; 85007; 85025; 85610; 85730; 86803; 87040; 87070; 87077; 87186; 87205; 87265; 87389; 87486; 87581; 87632; 87635; 88112; 88305; 89051; 93005; 93270; 93306; 94640; 94760; 94761; 97110; 97116; 97162; 97165; 97530; 99291; C1751; J0131; J1644; J1885; J1956; J2543; J3370; J3475; J7030; J7120; J7620; Q9967

== ENCOUNTER 2024-05-21 12:07 | Outpatient (CLI) | payer MEDICARE, MEDICAID, SELFPAY ==
--- NOTE | 2024-05-21 12:16 | XR_ITS ---
FINAL REPORT CLINICAL HISTORY: EFFUSION COMPARISON: 03/15/2024 FINDINGS: Two views of the chest were obtained. The heart size and pulmonary vascularity are within normal limits. The mediastinum is normal. There is a moderate to large right pleural effusion which is significantly worse from the prior study. The lungs are hyperinflated, consistent with COPD. There is no pneumothorax. The bony thorax is intact. IMPRESSION: Significantly worse right pleural effusion. Authenticated and ERN
== END 2024-05-21 23:59 | disposition home or self-care (01) ==
PROVIDERS: PCP Family Medicine; Visit Provider Internal Medicine Medical Oncology
DX: R06.02 Shortness of breath (principal); I25.10 Atherosclerotic heart disease of native coronary artery without angina pectoris; J43.9 Emphysema, unspecified; E78.2 Mixed hyperlipidemia; C34.80 Malignant neoplasm of overlapping sites of unspecified bronchus and lung; I10 Essential (primary) hypertension; I50.20 Unspecified systolic (congestive) heart failure; I48.0 Paroxysmal atrial fibrillation
CPT/HCPCS: 71046

== ENCOUNTER 2024-07-27 19:52 | Inpatient (IN) | payer OTHER, SELFPAY ==
[2024-07-27] VITALS (8 sets, daily range): BP systolic 104–136; BP diastolic 52–69; PULSE 69–86; RESP 16–24; TEMP 36.6; O2SAT 90–94; BMI 26.1
--- NOTE | 2024-07-27 20:16 | XR_ITS ---
PROCEDURE INFORMATION: Exam: XR Chest Exam date and time: 07/27/2024 8:40 PM Age: 68 years old Clinical indication: Dyspnea TECHNIQUE: Imaging protocol: Radiologic exam of the chest. Views: 1 view. COMPARISON: CR XR CHEST 2V 05/21/2024 12:43 PM FINDINGS: Lungs: Bibasilar atelectasis potentially with a superimposed infectious process. Increased interstitial markings in hazy airspace opacities may represent pulmonary edema. Pleural spaces: Right-sided pleural effusion. No pneumothorax. Heart/Mediastinum: Unremarkable. No cardiomegaly. Vasculature: Aortic calcification. Bones/joints: Unremarkable. IMPRESSION: 1. Bibasilar atelectasis potentially with a superimposed infectious process. 2. Increased interstitial markings in hazy airspace opacities may represent pulmonary edema.
[2024-07-27] MEDS: MAGNESIUM SULFATE IN WATER 2 GM/50 ML PIGGYBACK IV (20:23)
[2024-07-27] MEDS: DEXAMETHASONE 4MG/ML 1ML VIAL 10 MG IV (20:23)
--- NOTE | 2024-07-27 20:30 | ECG_ITS ---
APPROVED REPORT Exam: Resting ECG HR:82 bpm ECG Measurements Heart Rate 82 AXES SC 181 P 135 QRSd 126 QRS -65 QT 369 T 81 QTc 408 Conclusion ECTOPIC ATRIAL RHYTHM INDETERMINATE AXIS RIGHT BUNDLE BRANCH BLOCK [120+ ms QRS DURATION, UPRIGHT V1, 40+ ms S IN I/aVL/V4/V5/V6] LEFT ANTERIOR FASCICULAR BLOCK [QRS AXIS <= -45, QR IN I, RS IN II] ABNORMAL ECG UNCONFIRMED REPORT Electronically signed by : Jose Galvan, 07/27/2024 23:11:06
--- NOTE | 2024-07-27 20:30 | HMH.EDGENADL ---
Discharge Plan Disposition Patient Disposition: Admitted Clinical Impressions Clinical Impression: Acute exacerbation of chronic obstructive pulmonary disease, Pleural effusion on right, Multifocal pneumonia Discharge ED Provider: Dayday Conde General Adult HPI <Melva Galvan MD - Last Filed: 07/27/24 23:08> General Chief complaint: Upper Respiratory Infection Stated complaint: dyspnea, hypoxia Time Seen by Provider: 07/27/24 20:02 Mode of Arrival: EMS Source of Information: Patient Limitations: No Limitations Description of Symptoms (Recalled from ER Triage Doc. by RN): Pt a hospice patient and today had increasing shortness of breath and dizziness History of Present Illness HPI narrative: Patient is a 68-year-old male with a known history of metastatic lung cancer also with end-stage COPD on hospice presenting today with worsening shortness of breath over the last several days. Patient has increasing cough wheezing sputum production Cetera. Has a known right pleural effusion has had thoracentesis in the past. No fevers or chills. Still hopeful that he can get to his doctors next week as they have not given up on me and usually make me feel better. Related Data Home Medications ?Medication ?Instructions ?Recorded ?Confirmed aspirin 81 mg tablet,delayed 81 mg PO DAILY 08/24/20 06/18/24 release docusate sodium 100 mg tablet 100 mg PO DAILY 03/08/24 06/18/24 folic acid 1 mg tablet 1 mg PO DAILY 03/08/24 06/18/24 ondansetron 4 mg disintegrating 4 mg PO Q6H PRN Nausea And Vomiting 03/08/24 06/18/24 tablet Previous Rx's ?Medication ?Instructions ?Recorded azelastine 137 mcg (0.1 %) nasal 2 spray intranasal HS 90 days #30 09/11/23 spray mL alfuzosin 10 mg tablet,extended 10 mg PO DAILY 90 days #90 tabs 12/25/23 release 24 hr fluticasone fur. 100 mcg-umeclid 1 inh inhalation DAILY 90 days #90 03/27/24 62.5 mcg-vilant 25 mcg ea inhalat.powder (Trelegy Ellipta) allopurinol 300 mg tablet 300 mg PO DAILY 90 days #90 tabs 05/10/24 levothyroxine 150 mcg tablet 150 mcg PO DAILY #90 tabs 06/18/24 metoprolol tartrate 50 mg tablet 75 mg (1.5 x 50 mg) PO BID #180 06/18/24 tabs potassium chloride 20 mEq 20 meq PO DAILY #90 tabs 06/18/24 tablet,extended release lovastatin 40 mg tablet 40 mg PO HS 30 days #30 tabs 06/24/24 midodrine 2.5 mg tablet 2.5 mg PO TID #90 tabs 06/24/24 Allergies Allergy/AdvReac Type Severity Reaction Status Date / Time No Known Drug Allergies Allergy Unknown Unknown Verified 06/18/24 09:15 (NKDA) allergy reaction [facility] <Melva Galvan MD - Last Filed: 07/27/24 23:08> [facility] Disclaimer: The information contained in this section may have been updated after the patient was seen, as this information can be updated by other users. Medical History (Updated 07/27/24 @ 23:06 by Melva Galvan MD) PAF (paroxysmal atrial fibrillation) HFrEF (heart failure with reduced ejection fraction) Screening for colon cancer Chronic constipation Acute on chronic respiratory failure with hypoxemia CHF exacerbation Impotence Urine retention Constipation Encopresis Constipation Acute urinary retention Shortness of breath Left breast abscess Dysphagia Constipation Left breast mass History of ASCVD Community acquired pneumonia Acute and chronic respiratory failure with hypoxia Radiation esophagitis Esophageal stricture Pleural effusion on right Acute respiratory failure with hypoxia Acute hypercapnic respiratory failure Acute exacerbation of chronic obstructive pulmonary disease Acute hypoxic on chronic hypercapnic respiratory failure COPD (chronic obstructive pulmonary disease) Olecranon bursitis of right elbow Elbow mass Swelling Hilar lymphadenopathy Allergic rhinitis History of lung or bronchial cancer Mediastinal lymphadenopathy History of esophageal dilatation Sinusitis Gynecomastia Discharge from left nipple COPD (chronic obstructive pulmonary disease) Dyspnea on exertion Malignant neoplasm of unspecified part of unspecified bronchus or lung Pulmonary emphysema Smoking greater than 30 pack years Lung nodule Tobacco abuse counseling HAP (hospital-acquired pneumonia) Influenza A Acute on chronic respiratory failure with hypoxia and hypercapnia Urinary tract infection Tobacco abuse AAA (abdominal aortic aneurysm) Melanoma Thyroid disease Sinus problem History of radiation therapy History of chemotherapy Cataract Myocardial infarction Lung disease DVT (deep venous thrombosis) Cancer Atherosclerotic heart disease Hypotension HLD (hyperlipidemia) Abnormal EKG CAD (coronary artery disease) CHF (congestive heart failure) Gout Tobacco abuse disorder Hypertension Hypothyroidism COPD exacerbation Surgical History H/O melanoma excision History of heart artery stent History of cardiac cath History of colonoscopy Family History Other AAA (abdominal aortic aneurysm) Coronary artery disease Gout Heart attack Hypertension Social History (Updated 06/18/24 @ 09:18 by Mary Gutierrez MA) Smoking Status: Former smoker tobacco type: cigarettes packs per day: 1 smoking status stop date: 2023 alcohol intake: former substance use type: denies use 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ional status: retired and disabled Travel in the last 8 weeks: None household members: spouse housing: house lives independently: No marital status: education level: high school service: No group home: No caffeine: No special honey needs: No agree to transfusion: No do you feel safe at home: Yes victim of physical abuse: No victim of emotional abuse: No victim of sexual abuse: No would you like helpful sources: No Have you lived/traveled outside [place] in past 30 days?: No Contact w/someone who lives/traveled outside [place] past 30 days?: No Exposure to someone with infectious disease in past 14 days?: No Do you have a fever (greater than 100.4 F or 38 C)?: No Have you tested positive for COVID-19: No Exposed to someone with COVID-19 in past 14 days?: No Do you have a sore throat?: No Do you have a cough?: No Do you have any weakness?: No Do you have any diarrhea?: No Are you experiencing any unusual bleeding?: No Do you have any muscle aches/pain?: No Do you have any abdominal pain?: No Are you experiencing loss of taste or smell?: No Other Medical History Have you received the Flu Vaccine for this season: No Have you received the Pneumonia Vaccine: Yes <Melva Galvan MD - Last Filed: 07/27/24 23:08> ROS Obtained: Yes All systems reviewed & no additional complaints except as documented Physical Exam <Melva Galvan MD - Last Filed: 07/27/24 23:08> General General appearance: in distress Respiratory Respiratory exam: Present other (Very poor air movement there are scant wheezing throughout with prolonged expiratory phase significantly decreased lung sounds particular in the right base) Cardiovascular Cardiovascular exam: Present tachycardia Neurological Exam Neurological exam: Present alert and oriented X3 Medical Decision Making <Melva Galvan MD - Last Filed: 07/27/24 23:08> Medical Records Screening: Per USPSTF and CDC recommendations, given the prevalence of disease in our region, it is our hospital?s policy to screen for HIV and viral Hepatitis for all patients aged 18 and over and those with ongoing risk factors. Lanre Inquiry Pt receiving controlled substance: No Vital Signs: 07/27/24 19:52 07/27/24 20:00 07/27/24 20:30 Temperature 97.8 F Temperature Source Oral Pulse Rate 81 80 Pulse Rate [Right Brachial] 86 Respiratory Rate 24 Blood Pressure 121/69 104/52 L Blood Pressure [Right Arm] 136/69 Blood Pressure Mean [Right Arm] 91 Blood Pressure Source [Right Arm] Automatic Cuff Blood Pressure Position [Right Arm] Supine 02 Sat by Pulse Oximetry 93 L 94 L 90 L Oxygen Delivery Method Nasal Cannula Oxygen Flow Rate (LPM) 4 07/27/24 20:44 07/27/24 21:00 07/27/24 21:31 Temperature Temperature Source Pulse Rate 84 77 69 Pulse Rate [Right Brachial] Respiratory Rate Blood Pressure 120/64 118/56 L Blood Pressure [Right Arm] Blood Pressure Mean [Right Arm] Blood Pressure Source [Right Arm] Blood Pressure Position [Right Arm] 02 Sat by Pulse Oximetry 91 L 93 L Oxygen Delivery Method Oxygen Flow Rate (LPM) 07/27/24 22:00 07/27/24 22:30 07/28/24 00:03 Temperature 98.2 F Temperature Source Pulse Rate 78 92 H Pulse Rate [Right Brachial] Respiratory Rate 17 16 16 Blood Pressure 128/69 129/68 110/67 Blood Pressure [Right Arm] Blood Pressure Mean [Right Arm] Blood Pressure Source [Right Arm] Blood Pressure Position [Right Arm] 02 Sat by Pulse Oximetry 91 L Oxygen Delivery Method Oxygen Flow Rate (LPM) Lab Data Lab results reviewed: Yes I reviewed the patient's lab results. Lab Results 07/27/24 20:17: VBG pH 7.34, VBG pCO2 60.6 H, VBG pO2 117.9 H, VBG HCO3 32.3 H, VBG Total CO2 34.1 H, VBG O2 Saturation 98.6 H, VBG Base Excess 6.5 H, VBG Lactic Acid 0.9 07/27/24 20:35: SARS-CoV-2 (PCR) Not detected, Influenza A Untype (PCR) Not detected, Influenza Type B (PCR) Not detected 07/27/24 22:50: WBC 2.2 L, RBC 3.49 L, Hgb 10.7 L, Hct 32.6 L, MCV 93.4, MCH 30.7, MCHC 32.8, RDW 14.1, Plt Count 77 L, MPV 11.2 H, Neut % (Auto) 80.4 H, Lymph % (Auto) 13.1, [place] % (Auto) 5.0, Eos % (Auto) 0.5, Baso % (Auto) 0.5, Neut # (Auto) 1.8, Lymph # (Auto) 0.3 L, [place] # (Auto) 0.1, Eos # (Auto) 0.0, Baso # (Auto) 0.0, Sodium 127 L, Potassium 4.8, Chloride 84 L, Carbon Dioxide 40 H, Anion Gap 7.8, BUN 17, Creatinine 0.50 L, Estimated Creat Clear 76, Estimated GFR 164, Est GFR ( Amer) 199, Glucose 116 H, Calcium 8.9, Total Bilirubin 0.7, AST 30, ALT 14, Alkaline Phosphatase 52, Troponin I < 0.01, NT-Pro-B Natriuret Pep 2690 H, Total Protein 6.7 D, Albumin 3.9, Globulin 2.8, Albumin/Globulin Ratio 1.4 07/27/24 22:50 07/27/24 22:50 Orders (Tests/Meds): ED MEDICATIONS Discontinued Medications Generic Name Dose Route Start Last Admin Trade Name Freq PRN Reason Stop Dose Admin Albuterol/Ipratropium 3 ml 07/27/24 20:15 07/27/24 20:43 Ipratropium/Albuterol 3 Ml Neb IH 07/27/24 20:16 3 ml ONCE ONE Administration Dexamethasone Sodium Phosphate 10 mg 07/27/24 20:15 07/27/24 20:23 Dexamethasone 4mg/Ml 1ml Vial IV 07/27/24 20:16 10 mg ONCE ONE Administration Magnesium Sulfate 2 gm in 50 mls @ 50 mls/hr 07/27/24 20:15 07/27/24 20:23 Magnesium Sulfate 2gm/50ml Premix IV 07/27/24 21:14 50 mls/hr ONCE ONE Administration Ceftriaxone Sodium 1 gm/ 50 mls @ 100 mls/hr 07/27/24 23:05 07/27/24 23:13 Sodium Chloride IV 07/27/24 23:34 100 mls/hr ONCE ONE Administration Azithromycin 500 mg/ Sodium 250 mls @ 250 mls/hr 07/27/24 23:05 07/27/24 23:12 Chloride IV 07/27/24 23:06 250 mls/hr ONCE ONE Administration ORDERS Category Date Time Status CXR --portable [XR chest portable] Stat Exams 07/27/24 20:16 Completed POCUS Point of Care (ER Only) Stat Exams 07/27/24 20:19 Completed BNP [NT Pro Brain Natriuretic Pep.] Stat Lab 07/27/24 22:50 Completed CBC w/Auto Diff [Complete Blood Count Auto Diff] Stat Lab 07/27/24 22:50 Completed CMP [Comprehensive Metabolic Panel] Stat Lab 07/27/24 22:50 Completed HIV Combo Routine Lab 07/27/24 22:50 Received Rapid PCR Covid and Flu A/B Stat Lab 07/27/24 20:35 Completed Trop I [Troponin I] Stat Lab 07/27/24 22:50 Completed Troponin I Q3H Lab 07/27/24 23:30 Ordered Troponin I Q3H Lab 07/28/24 02:30 Ordered Blood Culture Stat Micro 07/27/24 21:01 Received Venous Blood Gas Stat RT 07/27/24 20:17 Completed Medical Decision Narrative: Patient with above history and physical EKG was performed which I personally interpreted which shows a ventricular rate of 82 sinus rhythm right bundle branch block left anterior fascicular block indeterminate axis. Additionally I did a limited bedside ultrasound of the heart and lungs which showed a moderate to large right-sided pleural effusion. This has been known and may be increasing in size in comparison with recent chest x-rays. He is apparently on hospice however he is making comments about being aggressive with his management and about other physicians who are not giving up on him there seems to be a disconnect on comfort care and his current wishes. Therefore at the moment I am being aggressive with my workup intervention. Nebs steroids magnesium have been administered will reassess. Reassessment 1106 chest x-ray performed which I personally interpreted which shows a moderate right-sided pleural effusion that appears to be slightly worse that has been in the past also with multifocal interstitial airspace opacities concerning for multifocal pneumonia. Rocephin azithromycin have been initiated. Patient is feeling significantly better after symptomatic medications. Still requiring high amounts of oxygen in addition to what he normally is on at home. Currently on 5 L with saturations at 90%. I did discuss with the patient his and his daughter at the bedside regarding hospice. They state that they are not comfort care only at the moment and that they would like still to be admitted and treated for all the complications of his current illnesses including pneumonia etc. Therefore the patient will need to be admitted. Chemistry tests are pending and admission will be called in after this test results return. Care was transitioned Dr. Conde. <Dayday Conde MD - Last Filed: 07/28/24 00:17> Vital Signs: 07/27/24 19:52 07/27/24 20:00 07/27/24 20:30 Temperature 97.8 F Temperature Source Oral Pulse Rate 81 80 Pulse Rate [Right Brachial] 86 Respiratory Rate 24 Blood Pressure 121/69 104/52 L Blood Pressure [Right Arm] 136/69 Blood Pressure Mean [Right Arm] 91 Blood Pressure Source [Right Arm] Automatic Cuff Blood Pressure Position [Right Arm] Supine 02 Sat by Pulse Oximetry 93 L 94 L 90 L Oxygen Delivery Method Nasal Cannula Oxygen Flow Rate (LPM) 4 07/27/24 20:44 07/27/24 21:00 07/27/24 21:31 Temperature Temperature Source Pulse Rate 84 77 69 Pulse Rate [Right Brachial] Respiratory Rate Blood Pressure 120/64 118/56 L Blood Pressure [Right Arm] Blood Pressure Mean [Right Arm] Blood Pressure Source [Right Arm] Blood Pressure Position [Right Arm] 02 Sat by Pulse Oximetry 91 L 93 L Oxygen Delivery Method Oxygen Flow Rate (LPM) 07/27/24 22:00 07/27/24 22:30 07/28/24 00:03 Temperature 98.2 F Temperature Source Pulse Rate 78 92 H Pulse Rate [Right Brachial] Respiratory Rate 17 16 16 Blood Pressure 128/69 129/68 110/67 Blood Pressure [Right Arm] Blood Pressure Mean [Right Arm] Blood Pressure Source [Right Arm] Blood Pressure Position [Right Arm] 02 Sat by Pulse Oximetry 91 L Oxygen Delivery Method Oxygen Flow Rate (LPM) Lab Data Lab Results 07/27/24 20:17: VBG pH 7.34, VBG pCO2 60.6 H, VBG pO2 117.9 H, VBG HCO3 32.3 H, VBG Total CO2 34.1 H, VBG O2 Saturation 98.6 H, VBG Base Excess 6.5 H, VBG Lactic Acid 0.9 07/27/24 20:35: SARS-CoV-2 (PCR) Not detected, Influenza A Untype (PCR) Not detected, Influenza Type B (PCR) Not detected 07/27/24 22:50: WBC 2.2 L, RBC 3.49 L, Hgb 10.7 L, Hct 32.6 L, MCV 93.4, MCH 30.7, MCHC 32.8, RDW 14.1, Plt Count 77 L, MPV 11.2 H, Neut % (Auto) 80.4 H, Lymph % (Auto) 13.1, [place] % (Auto) 5.0, Eos % (Auto) 0.5, Baso % (Auto) 0.5, Neut # (Auto) 1.8, Lymph # (Auto) 0.3 L, [place] # (Auto) 0.1, Eos # (Auto) 0.0, Baso # (Auto) 0.0, Sodium 127 L, Potassium 4.8, Chloride 84 L, Carbon Dioxide 40 H, Anion Gap 7.8, BUN 17, Creatinine 0.50 L, Estimated Creat Clear 76, Estimated GFR 164, Est GFR ( Amer) 199, Glucose 116 H, Calcium 8.9, Total Bilirubin 0.7, AST 30, ALT 14, Alkaline Phosphatase 52, Troponin I < 0.01, NT-Pro-B Natriuret Pep 2690 H, Total Protein 6.7 D, Albumin 3.9, Globulin 2.8, Albumin/Globulin Ratio 1.4 Orders (Tests/Meds): ED MEDICATIONS Discontinued Medications Generic Name Dose Route Start Last Admin Trade Name Freq PRN Reason Stop Dose Admin Albuterol/Ipratropium 3 ml 07/27/24 20:15 07/27/24 20:43 Ipratropium/Albuterol 3 Ml Neb IH 07/27/24 20:16 3 ml ONCE ONE Administration Dexamethasone Sodium Phosphate 10 mg 07/27/24 20:15 07/27/24 20:23 Dexamethasone 4mg/Ml 1ml Vial IV 07/27/24 20:16 10 mg ONCE ONE Administration Magnesium Sulfate 2 gm in 50 mls @ 50 mls/hr 07/27/24 20:15 07/27/24 20:23 Magnesium Sulfate 2gm/50ml Premix IV 07/27/24 21:14 50 mls/hr ONCE ONE Administration Ceftriaxone Sodium 1 gm/ 50 mls @ 100 mls/hr 07/27/24 23:05 07/27/24 23:13 Sodium Chloride IV 07/27/24 23:34 100 mls/hr ONCE ONE Administration Azithromycin 500 mg/ Sodium 250 mls @ 250 mls/hr 07/27/24 23:05 07/27/24 23:12 Chloride IV 07/27/24 23:06 250 mls/hr ONCE ONE Administration ORDERS Category Date Time Status CXR --portable [XR chest portable] Stat Exams 07/27/24 20:16 Completed POCUS Point of Care (ER Only) Stat Exams 07/27/24 20:19 Completed BNP [NT Pro Brain Natriuretic Pep.] Stat Lab 07/27/24 22:50 Completed CBC w/Auto Diff [Complete Blood Count Auto Diff] Stat Lab 07/27/24 22:50 Completed CMP [Comprehensive Metabolic Panel] Stat Lab 07/27/24 22:50 Completed HIV Combo Routine Lab 07/27/24 22:50 Received Rapid PCR Covid and Flu A/B Stat Lab 07/27/24 20:35 Completed Trop I [Troponin I] Stat Lab 07/27/24 22:50 Completed Troponin I Q3H Lab 07/27/24 23:30 Ordered Troponin I Q3H Lab 07/28/24 02:30 Ordered Blood Culture Stat Micro 07/27/24 21:01 Received Venous Blood Gas Stat RT 07/27/24 20:17 Completed Medical Decision Narrative: Patient with above history and physical EKG was performed which I personally interpreted which shows a ventricular rate of 82 sinus rhythm right bundle branch block left anterior fascicular block indeterminate axis. Additionally I did a limited bedside ultrasound of the heart and lungs which showed a moderate to large right-sided pleural effusion. This has been known and may be increasing in size in comparison with recent chest x-rays. He is apparently on hospice however he is making comments about being aggressive with his management and about other physicians who are not giving up on him there seems to be a disconnect on comfort care and his current wishes. Therefore at the moment I am being aggressive with my workup intervention. Nebs steroids magnesium have been administered will reassess. Reassessment 1106 chest x-ray performed which I personally interpreted which shows a moderate right-sided pleural effusion that appears to be slightly worse that has been in the past also with multifocal interstitial airspace opacities concerning for multifocal pneumonia. Rocephin azithromycin have been initiated. Patient is feeling significantly better after symptomatic medications. Still requiring high amounts of oxygen in addition to what he normally is on at home. Currently on 5 L with saturations at 90%. I did discuss with the patient his and his daughter at the bedside regarding hospice. They state that they are not comfort care only at the moment and that they would like still to be admitted and treated for all the complications of his current illnesses including pneumonia etc. Therefore the patient will need to be admitted. Chemistry tests are pending and admission will be called in after this test results return. Care was transitioned Dr. Conde. Amaya MENA: I assumed care of the patient at the time of handoff from the prior provider. On reassessment patient remains stable. Laboratories results interpreted by me, pancytopenia, mild hyponatremia, normal renal function. Interact discussion with had with the hospitalist on-call for admission for pneumonia and COPD exacerbation. Procedures <Melva Galvan MD - Last Filed: 07/27/24 23:08> Miscellaneous Procedure Procedure Performed: Limited cardiac ultrasound Indication: Dyspnea Identified structures: The heart was visualized in the parasternal long axis, parastenal short axis, apical four chamber and subxyphiod views. The IVC was visualized in the short axis and long axis at its entry into the right atrium. Findings: Normal LVEF there is moderate right heart strain and a trace pericardial effusion Impression: As above right heart strain likely chronic and trace pericardial effusion Images were saved to permanent archive The study was technically adequate CPT: 54427-26 This study was performed by me, and I personally interpreted all images/videos. Based on my clinical judgement, these images were adequate and did not necessitate further imaging. Limited lung ultrasound A focused ultrasound exam of the pleural spaces was performed to evaluate for pneumothorax, pulmonary edema, pleural effusion and/or consolidation. The ultrasound was performed with the following indications, as noted in the H&P: Dyspnea Identified structures: [RIGHT and/or LEFT] thoracic cavities were examined. Findings: Lung sliding present on bilateral lungs there is some scant B-lines there is a large pleural effusion on the right that is hypoechoic without any significant consolidation or loculations within it Impression: Moderate to large right-sided pleural effusion Images were saved to permanent archive The study was technically adequate CPT 27864-14 This study was performed by me, and I personally interpreted all images/videos. Based on my clinical judgement, these images were adequate and did not necessitate further imaging. Critical Care <Melva Galvan MD - Last Filed: 07/27/24 23:08> Critical Care Time Critical Care Time: Yes Attestation: On 07/27/24, the high probability of a clinically significant, sudden or life threatening deterioration of the following system(s) required my full and direct attention, intervention and personal management. The time I documented below is in addition to time spent performing reported procedures but includes the following listed in this critical care notation. Total Time Total Critical Care Time: 35
[2024-07-27 20:38] LABS: Coronavirus 19, PCR Not Detected (NotDetected); Influenza A, PCR Not Detected (NotDetected); Influenza B, PCR Not Detected (NotDetected)
[2024-07-27] MEDS: IPRATROPIUM/ALBUTEROL 3 ML NEB IH (20:43)
[2024-07-27 21:14] LABS: Lactate Venous 0.9 mmol/L (0.4-2.0); VBG Base Excess 6.5 mmol/L (-2.4-2.3); VBG HCO3 32.3 mmol/L (23-30); VBG Oxygen Saturation 98.6 % (50-70); VBG PCO2 60.6 mmol/L (35-51); VBG PH 7.34 mmol/L (7.31-7.41); VBG PO2 117.9 mmol/L (28-40); VBG Total CO2 34.1 mmol/L (23-27)
[2024-07-27 22:59] LABS: Basophils % 0.5 % (0.1-2.0); Eosinophils % 0.5 % (0.1-12.0); Hematocrit 32.6 % (42.0-52.0); Hemoglobin 10.7 g/dL (14.1-18.0); Lymphocytes # 0.3 K/mm3 (0.7-4.5); Lymphocytes % 13.1 % (10-50); Mean Corpuscular HGB Conc 32.8 g/dL (31.8-35.4); Mean Corpuscular Hemoglobin 30.7 pg (27.0-31.2); Mean Corpuscular Volume 93.4 fl (80-94); Mean Platelet Volume 11.2 fl (7.4-10.4); Monocytes # 0.1 K/mm3 (0.1-1.0); Neutrophils # 1.8 K/mm3 (1.8-7.8); Neutrophils % 80.4 % (37.0-80.0); Platelet Count 77 K/mm3 (142-424); Red Blood Count 3.49 M/mm3 (4.60-6.20); Red Cell Distribution Width 14.1 % (11.5-17.5); White Blood Count 2.2 K/mm3 (4.8-10.8)
[2024-07-27 23:08] LABS: Albumin Level 3.9 g/dl (3.5-5.0); Chloride 84 mmol/L (98-107); Potassium 4.8 mmoL/L (3.5-5.1); Sodium 127 mmol/L (136-145)
[2024-07-27 23:11] LABS: Alanine Aminotransferase 14 U/L (12-78); Albumin/Globulin Ratio 1.4 (1.1-1.8); Alkaline Phosphatase 52 U/L (38-126); Anion Gap 7.8 mEq/L (5-15); Aspartate Amino Transferase 30 U/L (17-59); Bilirubin,Total 0.7 mg/dl (0.2-1.3); Blood Urea Nitrogen 17 mg/dl (9-20); Carbon Dioxide 40 mmol/L (22.0-30.0); Creatinine Clearance Estimated 76 mL/min (50-200); Estimated Glomerular Filt Rate 164 ml/min (>60); GFR (African American) 199 ML/MIN (>60); Globulin 2.8 g/dL (1.3-3.2); Total Protein,Serum 6.7 g/dl (6.3-8.2)
[2024-07-27 23:12] LABS: Calcium 8.9 mg/dl (8.4-10.2); Glucose 116 mg/dl (74-100)
[2024-07-27] MEDS: AZITHROMYCIN 500 MG in 0.9 % SODIUM CHLORIDE 250 ML 250 MG IV (23:12)
[2024-07-27] MEDS: CEFTRIAXONE SODIUM 1 GM in 0.9 % SODIUM CHLORIDE 50 ML IV (23:13)
[2024-07-27 23:21] LABS: NT Pro Brain Natriuretic Pep. 2690 pg/mL (0-125)
[2024-07-27 23:24] LABS: Troponin I < 0.01 ng/ml (0.00-0.034)
[2024-07-28] VITALS (9 sets, daily range): BP systolic 110–131; BP diastolic 65–70; PULSE 60–92; RESP 16–20; TEMP 36.7–36.9; O2SAT 92–99; BMI 26.4
[2024-07-28 00:16] LABS: HIV Combo NEGATIVE (Negative)
--- NOTE | 2024-07-28 00:31 | PC.NURSE ---
pt arrived to floor via stretcher from ed at 0030.
[2024-07-28 01:39] LABS: Troponin I < 0.01 ng/ml (0.00-0.034)
[2024-07-28] MEDS: CEFEPIME HCL 2 GM in 0.9 % SODIUM CHLORIDE 100 ML IV ×3 (01:42→18:08)
[2024-07-28 03:39] LABS: Troponin I < 0.01 ng/ml (0.00-0.034)
--- NOTE | 2024-07-28 04:09 | P.HP_ITS ---
History of Present Illness *Admission Date: 07/27/24 *Reason for visit:: shortness of breath *History of present illness: The patient is a 68-year-old male with a known history of metastatic lung cancer and end-stage chronic obstructive pulmonary disease (COPD) on hospice, presenting with worsening shortness of breath over the past several days. He reports increased cough, wheezing, and sputum production. The patient denies fever or chills. He has a known right-sided pleural effusion and has undergone thoracentesis in the past. Despite being on hospice care, the patient expresses hope that his physicians can help him feel better, stating, They have not given up on me and usually make me feel better. Initial evaluation revealed a [id number] right pleural effusion and multifocal interstitial airspace opacities on chest X-ray, concerning for multifocal pneumonia. Laboratory studies are notable for leukopenia (WBC 2.2), anemia (Hgb 10.7), thrombocytopenia (Plt 77), hyponatremia (Sodium 127), and elevated NT-proBNP (2690). VBG shows compensated respiratory acidosis with a pH of 7.34 and pCO2 of 60.6. SARS-CoV-2, influenza A, and influenza B PCR tests were negative. EKG revealed sinus rhythm with a right bundle branch block, left anterior fascicular block, and an indeterminate axis. The patient required high levels of supplemental oxygen, with current oxygen needs at 5 L/min to maintain oxygen saturation at 90%. He has shown symptomatic improvement following treatment with nebulized bronchodilators, steroids, magnesium, and antibiotics (ceftriaxone and azithromycin). Discussions with the patient and family at the bedside clarified that they wish to pursue aggressive management rather than comfort care at this time. The working diagnosis includes a worsening pleural effusion and multifocal pneumonia, contributing to acute respiratory decompensation in the context of advanced metastatic lung cancer and end-stage COPD. The patient will need to be admitted for further management and close monitoring. [facility] Disclaimer: The information contained in this section may have been updated after the patient was seen, as this information can be updated by other users. Medical History PAF (paroxysmal atrial fibrillation) HFrEF (heart failure with reduced ejection fraction) Screening for colon cancer Chronic constipation Acute on chronic respiratory failure with hypoxemia CHF exacerbation Impotence Urine retention Constipation Encopresis Constipation Acute urinary retention Shortness of breath Left breast abscess Dysphagia Constipation Left breast mass History of ASCVD Community acquired pneumonia Acute and chronic respiratory failure with hypoxia Radiation esophagitis Esophageal stricture Pleural effusion on right Acute respiratory failure with hypoxia Acute hypercapnic respiratory failure Acute exacerbation of chronic obstructive pulmonary disease Acute hypoxic on chronic hypercapnic respiratory failure COPD (chronic obstructive pulmonary disease) Olecranon bursitis of right elbow Elbow mass Swelling Hilar lymphadenopathy Allergic rhinitis History of lung or bronchial cancer Mediastinal lymphadenopathy History of esophageal dilatation Sinusitis Gynecomastia Discharge from left nipple COPD (chronic obstructive pulmonary disease) Dyspnea on exertion Malignant neoplasm of unspecified part of unspecified bronchus or lung Pulmonary emphysema Smoking greater than 30 pack years Lung nodule Tobacco abuse counseling HAP (hospital-acquired pneumonia) Influenza A Acute on chronic respiratory failure with hypoxia and hypercapnia Urinary tract infection Tobacco abuse AAA (abdominal aortic aneurysm) Melanoma Thyroid disease Sinus problem History of radiation therapy History of chemotherapy Cataract Myocardial infarction Lung disease DVT (deep venous thrombosis) Cancer Atherosclerotic heart disease Hypotension HLD (hyperlipidemia) Abnormal EKG CAD (coronary artery disease) CHF (congestive heart failure) Gout Tobacco abuse disorder Hypertension Hypothyroidism COPD exacerbation Surgical History H/O melanoma excision History of heart artery stent History of cardiac cath History of colonoscopy Family History Other AAA (abdominal aortic aneurysm) Coronary artery disease Gout Heart attack Hypertension Social History Smoking Status: Former smoker tobacco type: cigarettes packs per day: 1 smoking status stop date: 2023 alcohol intake: former substance use type: denies use 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ional status: retired and disabled Travel in the last 8 weeks: None household members: spouse housing: house lives independently: No marital status: education level: high school service: No chcf: No caffeine: No special honey needs: No agree to transfusion: No do you feel safe at home: Yes victim of physical abuse: No victim of emotional abuse: No victim of sexual abuse: No would you like helpful sources: No Have you lived/traveled outside [place] in past 30 days?: No Contact w/someone who lives/traveled outside [place] past 30 days?: No Exposure to someone with infectious disease in past 14 days?: No Do you have a fever (greater than 100.4 F or 38 C)?: No Have you tested positive for COVID-19: No Exposed to someone with COVID-19 in past 14 days?: No Do you have a sore throat?: No Do you have a cough?: No Do you have any weakness?: No Do you have any diarrhea?: No Are you experiencing any unusual bleeding?: No Do you have any muscle aches/pain?: No Do you have any abdominal pain?: No Are you experiencing loss of taste or smell?: No Other Medical History Have you received the Flu Vaccine for this season: No Have you received the Pneumonia Vaccine: No Review of Systems Constitutional Constitutional: Reports fatigue and Reports weakness Eyes Eyes: Denies loss of vision ENT Ears, Nose, Mouth, and Throat: Denies hearing loss and Denies vertigo *Cardiovascular Cardiovascular: Denies chest pain, Denies dyspnea and Denies syncope *Respiratory Respiratory: Denies cough and Denies dyspnea *Gastrointestinal Gastrointestinal: Denies change in stool character, Denies nausea and Denies vomiting *Genitourinary Genitourinary: Denies difficulty urinating *Musculoskeletal Musculoskeletal: Denies muscle weakness Integumentary/Breasts Skin/Breast: Denies changing lesions *Neurologic Neurologic: Denies loss of vision, Denies syncope, Denies vertigo and Reports we akness Endocrine Endocrine: Reports fatigue Meds Home Medications and Allergies Home Medications ?Medication ?Instructions ?Recorded ?Confirmed ?Type alfuzosin 10 mg tablet,extended 10 mg PO DAILY 90 days #90 tabs 12/25/23 07/28/24 Rx release 24 hr allopurinol 300 mg tablet 300 mg PO DAILY 90 days #90 tabs 05/10/24 07/28/24 Rx levothyroxine 150 mcg tablet 150 mcg PO DAILY #90 tabs 06/18/24 07/28/24 Rx metoprolol tartrate 50 mg tablet 75 mg (1.5 x 50 mg) PO BID #180 06/18/24 07/28/24 Rx tabs potassium chloride 20 mEq 20 meq PO DAILY #90 tabs 06/18/24 07/28/24 Rx tablet,extended release lovastatin 40 mg tablet 40 mg PO HS 30 days #30 tabs 06/24/24 07/28/24 Rx midodrine 2.5 mg tablet 2.5 mg PO TID #90 tabs 06/24/24 07/28/24 Rx aspirin 81 mg chewable tablet 81 mg PO DAILY 07/28/24 07/28/24 History docusate sodium 100 mg capsule 100 mg PO DAILY 07/28/24 07/28/24 History fluticasone fur. 100 mcg-umeclid 1 inh inhalation DAILY 07/28/24 07/28/24 History 62.5 mcg-vilant 25 mcg inhalat.powder (Trelegy Ellipta) New Prescriptions to Start Prescriptions: Allergies Allergy/AdvReac Type Severity Reaction Status Date / Time No Known Drug Allergies Allergy Unknown Unknown Verified 06/18/24 09:15 (NKDA) allergy reaction Exam Data for Last 24 hours Vital signs and Labs for Last 24 Hours: Temp Pulse Resp BP Pulse Ox O2 Del Method O2 Flow Rate 98.2 F 90 16 110/67 95 Nasal Cannula 4 07/28/24 00:03 07/28/24 00:38 07/28/24 00:03 07/28/24 00:03 07/28/24 00:44 07/28/24 00:44 07/28/24 00:44 Laboratory Results - last 24 hr 07/27/24 20:17: VBG pH 7.34, VBG pCO2 60.6 H, VBG pO2 117.9 H, VBG HCO3 32.3 H, VBG Total CO2 34.1 H, VBG O2 Saturation 98.6 H, VBG Base Excess 6.5 H, VBG Lactic Acid 0.9 07/27/24 20:35: SARS-CoV-2 (PCR) Not detected, Influenza A Untype (PCR) Not detected, Influenza Type B (PCR) Not detected 07/27/24 22:50: WBC 2.2 L, RBC 3.49 L, Hgb 10.7 L, Hct 32.6 L, MCV 93.4, MCH 30.7, MCHC 32.8, RDW 14.1, Plt Count 77 L, MPV 11.2 H, Neut % (Auto) 80.4 H, Lymph % (Auto) 13.1, [place] % (Auto) 5.0, Eos % (Auto) 0.5, Baso % (Auto) 0.5, Neut # (Auto) 1.8, Lymph # (Auto) 0.3 L, [place] # (Auto) 0.1, Eos # (Auto) 0.0, Baso # (Auto) 0.0, Sodium 127 L, Potassium 4.8, Chloride 84 L, Carbon Dioxide 40 H, Anion Gap 7.8, BUN 17, Creatinine 0.50 L, Estimated Creat Clear 76, Estimated GFR 164, Est GFR ( Amer) 199, Glucose 116 H, Calcium 8.9, Total Bilirubin 0.7, AST 30, ALT 14, Alkaline Phosphatase 52, Troponin I < 0.01, NT-Pro-B Natriuret Pep 2690 H, Total Protein 6.7 D, Albumin 3.9, Globulin 2.8, Albumin/Globulin Ratio 1.4, HIV Ag/Ab Combo Qual Negative 07/28/24 00:40: Troponin I < 0.01 07/28/24 03:00: Troponin I < 0.01 I & O for Last 24 hours: Intake & Output 07/25/24 07/26/24 07/27/24 07/28/24 23:59 23:59 23:59 23:59 Weight 78.018 kg Constitutional Constitutional: moderate distress, thin, chronically ill appearing and cooperative *Routine HEENT Exam Head: Present normocephalic and atraumatic Eye: Present EOMI and PERRL ENT: Present mucous membranes dry *Routine Neck Exam Neck: Present supple and full ROM *Routine Respiratory Exam Respiratory: Present accessory muscle use, decreased breath sounds, wheezes (anterior) and crackles (Right lower lung field); Absent respiratory distress or rhonchi *Routine Cardiovascular Exam Cardiovascular: Present tachycardia and irregularly irregular *Routine Abdominal Exam Abdominal: Present soft and normoactive bowel sounds; Absent tenderness *Routine Rectal Exam Rectal:: deferred *Routine Genitalia Exam Genitalia:: deferred *Routine Extremities Exam Extremities: Present pallor; Absent cyanosis, clubbing or edema *Routine Skin Exam Skin: Present intact; Absent erythema *Routine Neurological Exam Neurological: Present alert, altered mental status and moving all extremities Assessment and Plan *Assessment and plan (1) Multifocal pneumonia: Status: Acute Category: Medical Code(s): J18.9 - Pneumonia, unspecified organism (2) Acute exacerbation of chronic obstructive pulmonary disease: Status: Acute Category: Medical Code(s): J44.1 - Chronic obstructive pulmonary disease with (acute) exacerbation (3) Physical deconditioning: Status: Acute Category: Medical Code(s): R53.81 - Other malaise (4) Thrombocytopenia: Status: Acute Category: Medical Code(s): D69.6 - Thrombocytopenia, unspecified (5) BPH (benign prostatic hyperplasia): Status: Acute Category: Medical Code(s): N40.0 - Benign prostatic hyperplasia without lower urinary tract symptoms (6) Neutropenia: Status: Acute Category: Medical Code(s): D70.9 - Neutropenia, unspecified Plan Medical Decision-Making: The patient is a 68-year-old male with metastatic lung cancer, end-stage COPD, and pancytopenia, presenting with acute worsening of respiratory symptoms, including shortness of breath, increased cough, wheezing, and sputum production. Imaging revealed a oodsbjvv-[id number]-wscod right pleural effusion and multifocal interstitial airspace opacities consistent with multifocal pneumonia. Given his underlying malignancy and immunocompromised state (pancytopenia), the initial antibiotic regimen of ceftriaxone was escalated to cefepime 2 grams every 12 hours for broader Gram-negative and pseudomonal coverage. Azithromycin was continued to cover atypical organisms. The patient has shown symptomatic improvement following administration of nebulized bronchodilators, steroids, and magnesium. Despite being on hospice care, he and his family have expressed a desire for aggressive management of his current illnesses. He remains on supplemental oxygen at 5 L/min, maintaining saturations around 90%. The patient will require close monitoring of his respiratory status, response to antibiotics, and further management of his pleural effusion. Multifocal pneumonia: * Continue cefepime 2 grams IV every 12 hours for expanded coverage, including Gram-negative bacteria and Pseudomonas, due to his immunocompromised state. * Continue azithromycin 500 mg IV daily to cover atypical organisms. * Obtain daily complete blood counts and metabolic panels to monitor response and potential worsening pancytopenia or electrolyte derangements. * Blood cultures, sputum cultures, to guide further antibiotic adjustments. * Repeat chest X-ray in 48?72 hours to assess response to treatment. End-stage COPD with acute exacerbation: * Continue nebulized bronchodilators (albuterol and ipratropium) every 4?6 hours or as needed. * Continue systemic corticosteroids and taper based on clinical improvement. * Optimize oxygen delivery: Maintain supplemental oxygen at 5 L/min to target oxygen saturations >=90%. * Monitor for hypercapnia or worsening respiratory acidosis, especially given his elevated baseline pCO? (VBG pCO? 60.6). * Consider non-invasive ventilation (e.g., BiPAP) if oxygenation remains inadequate. Right pleural effusion: * Monitor for symptoms of worsening dyspnea or respiratory compromise. * Thoracentesis may be indicated if symptomatic or significant fluid accumulation is confirmed on imaging. * Discuss with oncology and palliative care regarding recurrent drainage needs or pleurodesis. Pancytopenia: * Monitor daily CBC and assess trends in WBC, hemoglobin, and platelet levels. * Rule out superimposed infection or bone marrow suppression as contributors. * Consider transfusion support for severe anemia or thrombocytopenia if clinically indicated. * Coordinate with oncology for potential bone marrow recovery interventions if related to treatment. Metastatic lung cancer: * Continue coordination with oncology and palliative care to address the patient's long-term goals of care. * Evaluate for appropriate palliative interventions, including symptom management (e.g., pain control, appetite stimulation). Chronic venous insufficiency and bilateral lower extremity edema: * Continue supportive measures such as leg elevation and compression therapy, if tolerable. * Assess for signs of cellulitis or skin breakdown, and treat as necessary. Hyponatremia and malnutrition: * Monitor sodium levels closely. Correct sodium gradually to avoid osmotic demyelination syndrome. * Consider addressing nutritional deficiencies with dietary consultation and possible supplementation, as tolerated. Psychosocial support: * Engage the patient and family in ongoing discussions about care goals. * Provide emotional and psychosocial support through palliative care services. * Document the patient and family's current preference for aggressive management while respecting hospice enrollment. Disposition and monitoring: * Admit to medical unit for close monitoring of respiratory status, fluid management, and response to antibiotics. * Continue supportive care with regular reassessment of clinical response to therapy. * Plan for frequent re-evaluation of the patient?s goals of care and transitions in management as appropriate. * GI prophylaxis with Protonix * DVT prophylaxis with subcu Lovenox * Rounded on patient after nurse practitioner. Personally examined and interviewed patient. Agree with exam findings and care plan as documented. Pulmonology consulted. Patient appears to have volume overload, administered Bumex 1 mg once. Goal negative volume status. Imaging per my review shows pulmonary edema. Effusion chronic but worse. Will discuss potential for thoracentesis in the morning with pulmonology. Continue antibiotics as above. Labs in the morning show white count of 1.3, platelets low at 58. Worsening anemia, leukopenia, thrombocytopenia likely secondary to his cancer. Hyponatremia noted at 127. Kidney function normal with BUN 16, creatinine 0.5. BNP was elevated at 2600. Meeting sepsis criteria. On 3 L on rounds. Baseline 2.5 L. Repeat CBC, CMP, magnesium ordered for the morning.
[2024-07-28 07:52] LABS: Hematocrit 33.4 % (42.0-52.0); Hemoglobin 10.7 g/dL (14.1-18.0); Lymphocytes # 0.2 K/mm3 (0.7-4.5); Lymphocytes % 13.3 % (10-50); Mean Corpuscular Hemoglobin 29.9 pg (27.0-31.2); Mean Corpuscular Volume 93.3 fl (80-94); Monocytes # 0.1 K/mm3 (0.1-1.0); Monocytes % 4.7 % (1.7-9.3); Neutrophils # 1.1 K/mm3 (1.8-7.8); Platelet Count 58 K/mm3 (142-424); Red Blood Count 3.58 M/mm3 (4.60-6.20); Red Cell Distribution Width 13.7 % (11.5-17.5); White Blood Count 1.3 K/mm3 (4.8-10.8)
[2024-07-28 07:54] LABS: Chloride 86 mmol/L (98-107); Potassium 4.7 mmoL/L (3.5-5.1); Sodium 127 mmol/L (136-145)
[2024-07-28 07:57] LABS: Blood Urea Nitrogen 16 mg/dl (9-20); Calcium 8.7 mg/dl (8.4-10.2); Chol/HDL Ratio 2.1 (1-3.5); Cholesterol 123 mg/dl (140-200); Creatinine Clearance Estimated 77 mL/min (50-200); Estimated Glomerular Filt Rate 164 ml/min (>60); GFR (African American) 199 ML/MIN (>60); Glucose 193 mg/dl (74-100); HDL Cholesterol 59 mg/dl (40-60); Triglycerides 36 mg/dl (30-150); VLDL Cholesterol 7 mg/dL (0-40)
[2024-07-28 08:05] LABS: Anion Gap 9.7 mEq/L (5-15); Carbon Dioxide 36 mmol/L (22.0-30.0)
[2024-07-28 08:08] LABS: Direct LDL Cholesterol 46.68 mg/dL (100-129)
[2024-07-28] MEDS: ASPIRIN 81MG CHEWABLE TABLET 81 MG PO (08:55)
[2024-07-28] MEDS: DOCUSATE SODIUM 100 MG CAPSULE PO (08:55)
[2024-07-28] MEDS: ALLOPURINOL 300MG TABLET 300 MG PO (08:55)
[2024-07-28] MEDS: POTASSIUM CHLORIDE 20MEQ TAB 20 MEQ PO (08:55)
[2024-07-28] MEDS: METOPROLOL TARTRATE 50MG TABLET 75 MG PO (08:55)
[2024-07-28] MEDS: LEVOTHYROXINE 150MCG (0.15MG)TAB 150 MCG PO (08:55)
[2024-07-28] MEDS: AZITHROMYCIN 250MG TABLET 500 MG PO (08:55)
[2024-07-28] MEDS: DEXAMETHASONE 4MG/ML 1ML VIAL 8 MG IV (08:56)
--- NOTE | 2024-07-28 09:55 | HMH.PHAINT1 ---
Pharmacy Intervention Comments: MEDICATION RECONCILIATION COMPLETED ON PATIENT USING EXTERNAL FILL HISTORY FROM PHARMACY AND LIST FROM CARDIOLOGY OFFICE. -SILVA LOVE, LEORAD
[2024-07-28] MEDS: FLUTICASONE/UMECLIDIN/VILANTER 100/62.5/25MCG INHALER 1 PUFF IH (12:04)
[2024-07-28] MEDS: BUMETANIDE 1MG/4ML VIAL 1 MG IV (13:02)
--- NOTE | 2024-07-28 17:14 | PC.NURSE ---
patient is a/ox4, remains on 4 LNC. earlier in shift he was reduced to 3LNC, o2 was above 90% during the time, once family arrived and patient was sitting on the side of bed his o2 dropped to 88%, i placed him on 4LNC, o2 saturations have been above 90%. no c/o of discomfort, tolerating diet well. no requests at this time, call light within reach.
--- NOTE | 2024-07-28 18:58 | PC.NURSE ---
incentive spirometry education provided. patient demonstrated understanding of teaching.
--- NOTE | 2024-07-28 21:20 | PC.NURSE ---
Pt BP: 114/66 and HR: 60 (HR fluctuating in between 50s and 60s), this nurse held metoprolol @this time
[2024-07-28] MEDS: PRAVASTATIN 40MG TAB 40 MG PO (21:39)
[2024-07-28] MEDS: TAMSULOSIN 0.4MG CAPSULE 0.4 MG PO (21:39)
[2024-07-29] VITALS: BP 113/64; PULSE 89; PULSE 90; RESP 16; TEMP 36.9; O2SAT 94
[2024-07-29] MEDS: CEFEPIME HCL 2 GM in 0.9 % SODIUM CHLORIDE 100 ML IV ×2 (02:05→09:05)
[2024-07-29 04:00] VITALS: BP 127/67; PULSE 80; PULSE 81; RESP 14; TEMP 36.7; O2SAT 95; BMI 26.7
[2024-07-29] MEDS: LEVOTHYROXINE 150MCG (0.15MG)TAB 150 MCG PO (06:06)
[2024-07-29 06:24] VITALS: O2SAT 94
[2024-07-29] MEDS: FLUTICASONE/UMECLIDIN/VILANTER 100/62.5/25MCG INHALER 1 PUFF IH (06:24)
[2024-07-29 06:52] LABS: Hematocrit 31.8 % (42.0-52.0); Hemoglobin 10.4 g/dL (14.1-18.0); Lymphocytes # 0.5 K/mm3 (0.7-4.5); Lymphocytes % 19.3 % (10-50); Mean Corpuscular HGB Conc 32.7 g/dL (31.8-35.4); Mean Corpuscular Volume 91.6 fl (80-94); Mean Platelet Volume 10.3 fl (7.4-10.4); Monocytes # 0.3 K/mm3 (0.1-1.0); Neutrophils # 1.8 K/mm3 (1.8-7.8); Neutrophils % 68.3 % (37.0-80.0); Platelet Count 58 K/mm3 (142-424); Red Blood Count 3.47 M/mm3 (4.60-6.20); Red Cell Distribution Width 13.8 % (11.5-17.5); White Blood Count 2.6 K/mm3 (4.8-10.8)
[2024-07-29 07:16] LABS: Blood Urea Nitrogen 16 mg/dl (9-20); Calcium 8.9 mg/dl (8.4-10.2); Chloride 87 mmol/L (98-107); Creatinine Clearance Estimated 78 mL/min (50-200); Estimated Glomerular Filt Rate 111 ml/min (>60); GFR (African American) 135 ML/MIN (>60); Glucose 151 mg/dl (74-100); Potassium 3.9 mmoL/L (3.5-5.1); Sodium 132 mmol/L (136-145)
[2024-07-29 07:23] LABS: Anion Gap 10.9 mEq/L (5-15); Carbon Dioxide 38 mmol/L (22.0-30.0)
[2024-07-29 07:46] VITALS: BP 106/55; PULSE 80; RESP 18; TEMP 36.4; O2SAT 97
[2024-07-29 08:00] VITALS: PULSE 80
--- NOTE | 2024-07-29 08:30 | SW/DCPLANNER ---
Addendum entered by Catarina David 07/29/24 11:32: I have updated Clair w/ Hospice that patient will return home today. Addendum entered by Catarina David 07/29/24 09:05: Per Clair spence/ Hospice patient's stay is related to Hospice diagnosis. Original Note: Per Swati spence/ [facility] this patient is currently established w/ their services. Updated patient information has been faxed to Swati. Swati stated that she will follow up once reviewing information regarding a related hospital admission or not. Discharge date is unknown at this time.
[2024-07-29] MEDS: ALLOPURINOL 300MG TABLET 300 MG PO (08:53)
[2024-07-29] MEDS: METOPROLOL TARTRATE 50MG TABLET 75 MG PO (08:53)
[2024-07-29] MEDS: DOCUSATE SODIUM 100 MG CAPSULE PO (08:53)
[2024-07-29] MEDS: DEXAMETHASONE 4MG/ML 1ML VIAL 8 MG IV (08:53)
[2024-07-29] MEDS: BUMETANIDE 1MG/4ML VIAL 1 MG IV (08:53)
[2024-07-29] MEDS: POTASSIUM CHLORIDE 20MEQ TAB 20 MEQ PO (08:53)
[2024-07-29] MEDS: AZITHROMYCIN 250MG TABLET 500 MG PO (08:53)
[2024-07-29] MEDS: ASPIRIN 81MG CHEWABLE TABLET 81 MG PO (08:53)
--- NOTE | 2024-07-29 09:57 | EXP.PULM.CON ---
History of Present Illness History of present illness: Mr. Medeiros is a 68-year-old male? around [id number] smoking history, is following in pulmonary clinic for exertional dyspnea, COPD, pulmonary nodule lymphadenopathy status post EBUS FNA positive for stage III adenocarcinoma lung, recurrence of lung cancer failed chemotherapy currently on hospice therapy presented today with worsening respiratory distress and pleural effusions and pulmonary was called for further evaluation and management. Denies any known sick contacts but denies any worsening cough or any productive phlegm. Denies any lower extremity swelling. Gradual worsening symptoms [facility] Disclaimer: The information contained in this section may have been updated after the patient was seen, as this information can be updated by other users. Medical History PAF (paroxysmal atrial fibrillation) HFrEF (heart failure with reduced ejection fraction) Screening for colon cancer Chronic constipation Acute on chronic respiratory failure with hypoxemia CHF exacerbation Impotence Urine retention Constipation Encopresis Constipation Acute urinary retention Shortness of breath Left breast abscess Dysphagia Constipation Left breast mass History of ASCVD Community acquired pneumonia Acute and chronic respiratory failure with hypoxia Radiation esophagitis Esophageal stricture Pleural effusion on right Acute respiratory failure with hypoxia Acute hypercapnic respiratory failure Acute exacerbation of chronic obstructive pulmonary disease Acute hypoxic on chronic hypercapnic respiratory failure COPD (chronic obstructive pulmonary disease) Olecranon bursitis of right elbow Elbow mass Swelling Hilar lymphadenopathy Allergic rhinitis History of lung or bronchial cancer Mediastinal lymphadenopathy History of esophageal dilatation Sinusitis Gynecomastia Discharge from left nipple COPD (chronic obstructive pulmonary disease) Dyspnea on exertion Malignant neoplasm of unspecified part of unspecified bronchus or lung Pulmonary emphysema Smoking greater than 30 pack years Lung nodule Tobacco abuse counseling HAP (hospital-acquired pneumonia) Influenza A Acute on chronic respiratory failure with hypoxia and hypercapnia Urinary tract infection Tobacco abuse AAA (abdominal aortic aneurysm) Melanoma Thyroid disease Sinus problem History of radiation therapy History of chemotherapy Cataract Myocardial infarction Lung disease DVT (deep venous thrombosis) Cancer Atherosclerotic heart disease Hypotension HLD (hyperlipidemia) Abnormal EKG CAD (coronary artery disease) CHF (congestive heart failure) Gout Tobacco abuse disorder Hypertension Hypothyroidism COPD exacerbation Surgical History H/O melanoma excision History of heart artery stent History of cardiac cath History of colonoscopy Family History Other AAA (abdominal aortic aneurysm) Coronary artery disease Gout Heart attack Hypertension Social History Smoking Status: Former smoker tobacco type: cigarettes packs per day: 1 smoking status stop date: 2023 alcohol intake: former substance use type: denies use 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ional status: retired and disabled Travel in the last 8 weeks: None household members: spouse housing: house lives independently: No marital status: education level: high school service: No intermediate: No caffeine: No special honey needs: No agree to transfusion: No do you feel safe at home: Yes victim of physical abuse: No victim of emotional abuse: No victim of sexual abuse: No would you like helpful sources: No Have you lived/traveled outside [place] in past 30 days?: No Contact w/someone who lives/traveled outside [place] past 30 days?: No Exposure to someone with infectious disease in past 14 days?: No Do you have a fever (greater than 100.4 F or 38 C)?: No Have you tested positive for COVID-19: No Exposed to someone with COVID-19 in past 14 days?: No Do you have a sore throat?: No Do you have a cough?: No Do you have any weakness?: No Do you have any diarrhea?: No Are you experiencing any unusual bleeding?: No Do you have any muscle aches/pain?: No Do you have any abdominal pain?: No Are you experiencing loss of taste or smell?: No Review of Systems Constitutional Constitutional: Reports fatigue and Reports weakness Eyes Eyes: Denies itchy eyes and Denies loss of vision ENT Ears, Nose, Mouth, and Throat: Denies lip swelling, Denies throat swelling and Denies vertigo *Cardiovascular Cardiovascular: Reports dyspnea, Reports dyspnea on exertion and Denies syncope *Respiratory Respiratory: Denies change in phlegm color, Reports chest congestion, Reports cough, Reports dyspnea, Reports dyspnea on exertion, Denies excessive phlegm production, Denies hemoptysis, Denies pain on inspiration, Denies pain with cough and Reports wheezing *Gastrointestinal Gastrointestinal: Denies abdominal pain, Denies belching and Denies cramping *Musculoskeletal Musculoskeletal: Reports back pain, Reports myalgias and Reports other (No small joint swelling or Pain) *Neurologic Neurologic: Denies loss of vision, Denies syncope, Denies vertigo and Reports weakness Psychiatric Psychiatric: Denies homicidal ideation and Denies suicidal ideation Endocrine Endocrine: Reports fatigue and Denies heat intolerance Hematologic/Lymphatic Hematologic/Lymphatic: Denies easy bleeding and Denies lymphadenopathy Allergic/Immunologic Allergic/Immunologic: Denies itchy eyes, Denies lip swelling, Denies throat swelling and Reports wheezing Pulmonology Exam Inpatient Vital signs and Labs for Last 24 Hours: Temp Pulse Resp BP Pulse Ox O2 Del Method O2 Flow Rate 97.6 F 80 18 106/55 L 97 Nasal Cannula 5 07/29/24 07:46 07/29/24 07:46 07/29/24 07:46 07/29/24 07:46 07/29/24 07:46 07/29/24 07:46 07/29/24 07:46 FiO2 32 07/28/24 19:33 Laboratory Results - last 24 hr 07/29/24 06:36: WBC 2.6 L D, RBC 3.47 L, Hgb 10.4 L, Hct 31.8 L, MCV 91.6, MCH 30.0, MCHC 32.7, RDW 13.8, Plt Count 58 L, MPV 10.3, Neut % (Auto) 68.3, Lymph % (Auto) 19.3, [place] % (Auto) 12.0 H, Eos % (Auto) 0.0 L, Baso % (Auto) 0.0 L, Neut # (Auto) 1.8, Lymph # (Auto) 0.5 L, [place] # (Auto) 0.3, Eos # (Auto) 0.0, Baso # (Auto) 0.0, Sodium 132 L, Potassium 3.9, Chloride 87 L, Carbon Dioxide 38 H, Anion Gap 10.9, BUN 16, Creatinine 0.70 D, Estimated Creat Clear 78, Estimated GFR 111, Est GFR ( Amer) 135 D, Glucose 151 H D, Calcium 8.9 I & O for Labs for Last 24 Hours: Intake & Output 07/26/24 07/27/24 07/28/24 07/29/24 23:59 23:59 23:59 23:59 Intake Total 1170 / 1650 960 / 960 Output Total 1700 / 1700 300 / 300 Balance -530 / -50 660 / 660 Weight 172 lb 174 lb 12.8 oz 176 lb 6.4 oz Microbiology Reports for the Last 24 Hours: Microbiology 07/28/24 06:22 Sputum - Expectorated Sputum Gram Stain - Final 07/28/24 06:22 Sputum - Expectorated Sputum Sputum Culture - Final 07/27/24 21:01 Blood Blood Culture - Preliminary NO GROWTH AFTER 24 HOURS 07/27/24 21:01 Blood Blood Culture - Preliminary NO GROWTH AFTER 24 HOURS Constitutional: Present moderate distress Head: Present normocephalic and atraumatic ENT: Present normal exam, normal oropharynx and mucous membranes moist Neck: Present normal inspection and full ROM Respiratory: Present respiratory distress, diminished air movement and able to speak in complete sentences; Absent wheezes Cardiac: Present S1/S2, Tachycardia and radial pulses present GI: Present soft and distention; Absent tenderness or guarding Skin: Present intact; Absent cyanosis or jaundice Neuro: Present alert, awake and oriented x 3 Extremities: Present normal inspection; Absent edema, clubbing or cyanosis Psychiatric: Present normal affect and cooperative Meds Home Medications and Allergies Home Medications ?Medication ?Instructions ?Recorded ?Confirmed ?Type alfuzosin 10 mg tablet,extended 10 mg PO DAILY 90 days #90 tabs 12/25/23 07/28/24 Rx release 24 hr allopurinol 300 mg tablet 300 mg PO DAILY 90 days #90 tabs 05/10/24 07/28/24 Rx levothyroxine 150 mcg tablet 150 mcg PO DAILY #90 tabs 06/18/24 07/28/24 Rx metoprolol tartrate 50 mg tablet 75 mg (1.5 x 50 mg) PO BID #180 06/18/24 07/28/24 Rx tabs potassium chloride 20 mEq 20 meq PO DAILY #90 tabs 06/18/24 07/28/24 Rx tablet,extended release lovastatin 40 mg tablet 40 mg PO HS 30 days #30 tabs 06/24/24 07/28/24 Rx midodrine 2.5 mg tablet 2.5 mg PO TID #90 tabs 06/24/24 07/28/24 Rx aspirin 81 mg chewable tablet 81 mg PO DAILY 07/28/24 07/28/24 History docusate sodium 100 mg capsule 100 mg PO DAILY 07/28/24 07/28/24 History fluticasone fur. 100 mcg-umeclid 1 inh inhalation DAILY 07/28/24 07/28/24 History 62.5 mcg-vilant 25 mcg inhalat.powder (Trelegy Ellipta) New Prescriptions to Start Prescriptions: Allergies Allergy/AdvReac Type Severity Reaction Status Date / Time No Known Drug Allergies Allergy Unknown Unknown Verified 06/18/24 09:15 (NKDA) allergy reaction Results Laboratory Findings 07/29/24 06:36 07/29/24 06:36 Abnormal lab findings: Abnormal Labs 07/27/24 07/27/24 07/28/24 20:17 22:50 07:10 WBC 2.2 L 1.3 L* D RBC 3.49 L 3.58 L Hgb 10.7 L 10.7 L Hct 32.6 L 33.4 L Plt Count 77 L 58 L MPV 11.2 H 11.0 H Neut % (Auto) 80.4 H 82.0 H [place] % (Auto) Eos % (Auto) 0.0 L Baso % (Auto) 0.0 L Neut # (Auto) 1.1 L Lymph # (Auto) 0.3 L 0.2 L VBG pCO2 60.6 H VBG pO2 117.9 H VBG HCO3 32.3 H VBG Total CO2 34.1 H VBG O2 Saturation 98.6 H VBG Base Excess 6.5 H Sodium 127 L 127 L Chloride 84 L 86 L Carbon Dioxide 40 H 36 H Creatinine 0.50 L 0.50 L Glucose 116 H 193 H D NT-Pro-B Natriuret Pep 2690 H Cholesterol 123 L LDL Cholesterol Direct 46.68 L 07/29/24 06:36 WBC 2.6 L D RBC 3.47 L Hgb 10.4 L Hct 31.8 L Plt Count 58 L MPV Neut % (Auto) [place] % (Auto) 12.0 H Eos % (Auto) 0.0 L Baso % (Auto) 0.0 L Neut # (Auto) Lymph # (Auto) 0.5 L VBG pCO2 VBG pO2 VBG HCO3 VBG Total CO2 VBG O2 Saturation VBG Base Excess Sodium 132 L Chloride 87 L Carbon Dioxide 38 H Creatinine Glucose 151 H D NT-Pro-B Natriuret Pep Cholesterol LDL Cholesterol Direct Assessment and Plan *Assessment and plan (1) Pleural effusion on right: Status: Acute Category: Medical Code(s): J90 - Pleural effusion, not elsewhere classified (2) Multifocal pneumonia: Status: Acute Category: Medical Code(s): J18.9 - Pneumonia, unspecified organism (3) Acute on chronic respiratory failure with hypoxia and hypercapnia: Status: Chronic Category: Medical Code(s): J96.21 - Acute and chronic respiratory failure with hypoxia; J96.22 - Acute and chronic respiratory failure with hypercapnia Plan Mr. Medeiros is a 68-year-old male? around [id number] smoking history, is following in pulmonary clinic for exertional dyspnea, COPD, pulmonary nodule lymphadenopathy status post EBUS FNA positive for stage III adenocarcinoma lung, recurrence of lung cancer failed chemotherapy currently on hospice therapy presented today with worsening respiratory distress and pleural effusions and pulmonary was called for further evaluation and management. Denies any known sick contacts but denies any worsening cough or any productive phlegm. Denies any lower extremity swelling. Gradual worsening symptoms Most recent thoracentesis April 2024 s/[place] 1250 cc pleural fluid, negative for malignant cells Chest x-ray upon admission relatively stable right-sided pleural effusion compared to his chest x-ray from May 2024. Bilateral new patchy airspace disease noted and vascular congesiton noted. Patient on admission was initiated on cefepime and azithromycin. Continue to show leukopenia, ANC 1800. Blood and sputum cultures no growth on this admission. Patient today admits significant improvement in his respiratory distress since admission. Has been receiving diuresis. Net negative volume status. Back to his home 2.5 L nasal again supplementation. Saturating 97% on 3 L nasal cannula this morning. Did not show any respiratory stress while lying flat. Chest no significant wheezing noted. Decreased breath sounds right lower lung perez. Plan: No need for thoracentesis at this point of time. Follow-up with cardiology for volume optimization Antibiotics can be weaned to levofloxacin to complete a total of 5-day course Will follow in pulmonary clinic in 1 to 2 weeks with chest x-ray PA lateral prior to proceeding with thoracentesis.
--- NOTE | 2024-07-29 11:07 | P.DS_ITS ---
General Admission date:: 07/28/24 Discharge date: 07/29/24 HPI HPI HPI: The patient is a 68-year-old male with a known history of metastatic lung cancer and end-stage chronic obstructive pulmonary disease (COPD) on hospice, presenting with worsening shortness of breath over the past several days. He reports increased cough, wheezing, and sputum production. The patient denies fever or chills. He has a known right-sided pleural effusion and has undergone thoracentesis in the past. Despite being on hospice care, the patient expresses hope that his physicians can help him feel better, stating, They have not given up on me and usually make me feel better. Initial evaluation revealed a uypexlth-[id number] right pleural effusion and multifocal interstitial airspace opacities on chest X-ray, concerning for mul tifocal pneumonia. Laboratory studies are notable for leukopenia (WBC 2.2), anemia (Hgb 10.7), thrombocytopenia (Plt 77), hyponatremia (Sodium 127), and elevated NT-proBNP (2690). VBG shows compensated respiratory acidosis with a pH of 7.34 and pCO2 of 60.6. SARS-CoV-2, influenza A, and influenza B PCR tests were negative. EKG revealed sinus rhythm with a right bundle branch block, left anterior fascicular block, and an indeterminate axis. The patient required high levels of supplemental oxygen, with current oxygen needs at 5 L/min to maintain oxygen saturation at 90%. He has shown symptomatic improvement following treatment with nebulized bronchodilators, steroids, magnesium, and antibiotics (ceftriaxone and azithromycin). Discussions with the patient and family at the bedside clarified that they wish to pursue aggressive management rather than comfort care at this time. The working diagnosis includes a worsening pleural effusion and multifocal pneumonia, contributing to acute respiratory decompensation in the context of advanced metastatic lung cancer and end-stage COPD. The patient will need to be admitted for further management and close monitoring. Hospital Course Hospital Course Hospital Course: The patient is a 68-year-old male with metastatic lung cancer, end-stage COPD, and pancytopenia, presenting with acute worsening of respiratory symptoms, including shortness of breath, increased cough, wheezing, and sputum production. Imaging revealed a ilzjrhsw-jr-lfnwo right pleural effusion and multifocal interstitial airspace opacities consistent with multifocal pneumonia. Given his underlying malignancy and immunocompromised state (pancytopenia), the initial antibiotic regimen of ceftriaxone was escalated to cefepime 2 grams every 12 hours for broader Gram-negative and pseudomonal coverage. Azithromycin was continued to cover atypical organisms. The patient has shown symptomatic improvement following administration of nebulized bronchodilators, steroids, and magnesium. Despite being on hospice care, he and his family have expressed a desire for aggressive management of his current illnesses. Initially on 5 L oxygen. Diuresed aggressively with good response. Able to wean to his baseline home oxygen of 2 to 3 L. Sats maintained above 90%. Pulmonology consulted and evaluated patient during admission. No plan for thoracentesis at this time. Continue diuretic regimen at discharge. Plan for close outpatient follow-up for further evaluation. Problems addressed as follows: Multifocal pneumonia: Moderate to large pleural effusion on the right side End-stage metastatic lung cancer, no longer going through therapy. End-stage COPD with acute exacerbation -Patient initiated on cefepime and azithromycin on admission. Initiated on diuresis for volume overload status. Chest imaging with bilateral patchy airspace disease consistent with pneumonia versus volume overload/pulmonary edema along with effusion on right side. Patient had significant improvement in symptoms after diuresis. Negative almost 5 L since admission. No plan for thoracentesis as an inpatient at this time. Complete antibiotics with Levaquin for a total of 5 days. Follow-up with pulmonology in 1 to 2 weeks with chest x- ray PA and lateral prior to proceeding with thoracentesis. Would benefit from follow-up with cardiology for fluid management. -Continue nebulized bronchodilators and Trelegy inhaler daily. -Continue with hospice services given progression of disease. Pancytopenia: -Worsening. Noted to have leukopenia and thrombocytopenia. Unable to tolerate any chemotherapy or immunotherapy for his lung cancer due to side effects and worsening pancytopenia. White count stable at 2.6 with platelets of 58 on day of discharge. No indication for transfusion during admission. Hemoglobin 10.4. Hyponatremia and malnutrition: -Chronic hyponatremia, improved 132 by morning of discharge. Kidney function normal with BUN 16, creatinine 0.7. Will need monitoring of electrolytes with Bumex therapy. Potassium 3.9 on day of discharge. Continue potassium supple mentation daily with 20 mEq Heart failure -Continue Toprol all tartrate 75 mg twice daily, lovastatin 40 daily, Bumex 5 mg daily for fluid management, aspirin 81 mg. Would benefit from follow-up with cardiology for continued adjustment to medication regimen. Continue allopurinol 300 mg daily for gout Continue docusate daily for constipation Continue levothyroxine 150 mcg daily for hypothyroid Exam Data for Last 24 hours Vital signs and Labs for Last 24 Hours: Temp Pulse Resp BP Pulse Ox O2 Del Method O2 Flow Rate 97.6 F 80 18 106/55 L 97 Nasal Cannula 5 07/29/24 07:46 07/29/24 07:46 07/29/24 07:46 07/29/24 07:46 07/29/24 07:46 07/29/24 07:46 07/29/24 07:46 FiO2 32 07/28/24 19:33 Laboratory Results - last 24 hr 07/29/24 06:36: WBC 2.6 L D, RBC 3.47 L, Hgb 10.4 L, Hct 31.8 L, MCV 91.6, MCH 30.0, MCHC 32.7, RDW 13.8, Plt Count 58 L, MPV 10.3, Neut % (Auto) 68.3, Lymph % (Auto) 19.3, [place] % (Auto) 12.0 H, Eos % (Auto) 0.0 L, Baso % (Auto) 0.0 L, Neut # (Auto) 1.8, Lymph # (Auto) 0.5 L, [place] # (Auto) 0.3, Eos # (Auto) 0.0, Baso # (Auto) 0.0, Sodium 132 L, Potassium 3.9, Chloride 87 L, Carbon Dioxide 38 H, Anion Gap 10.9, BUN 16, Creatinine 0.70 D, Estimated Creat Clear 78, Estimated GFR 111, Est GFR ( Amer) 135 D, Glucose 151 H D, Calcium 8.9 I & O for Last 24 hours: Intake & Output 07/26/24 07/27/24 07/28/24 07/29/24 23:59 23:59 23:59 23:59 Intake Total 1170 / 1650 960 / 960 Output Total 1700 / 1700 300 / 300 Balance -530 / -50 660 / 660 Weight 78.018 kg 79.288 kg 80.014 kg Microbiology Reports for the Last 24 Hours: Microbiology 07/28/24 06:22 Sputum - Expectorated Sputum Gram Stain - Final 07/28/24 06:22 Sputum - Expectorated Sputum Sputum Culture - Final 07/27/24 21:01 Blood Blood Culture - Preliminary NO GROWTH AFTER 24 HOURS 07/27/24 21:01 Blood Blood Culture - Preliminary NO GROWTH AFTER 24 HOURS Constitutional Constitutional: no acute distress, thin, chronically ill appearing and cooperative *Routine HEENT Exam Head: Present normocephalic Eye: Present EOMI and PERRL ENT: Present mucous membranes moist *Routine Neck Exam Neck: Present supple; Absent lymphadenopathy *Routine Respiratory Exam Respiratory: Present prolonged expiratory phase, rhonchi, crackles (bases) and diminished air movement (right lung field); Absent wheezes *Routine Cardiovascular Exam Cardiovascular: Present RRR *Routine Abdominal Exam Abdominal: Present soft and normoactive bowel sounds; Absent tenderness *Routine Rectal Exam Patient deferred: visual exam *Routine Exam Patient deferred: penile exam *Routine Extremities Exam Extremities: Absent cyanosis, clubbing or edema *Routine Skin Exam Skin: Present intact and warm; Absent rash *Routine Neurological Exam Neurological: Present alert, oriented X3 and moving all extremities; Absent altered mental status Results Data Completed and Pending Labs on day of discharge: Labs from last 24 hours 07/29/24 06:36 WBC 2.6 L D RBC 3.47 L Hgb 10.4 L Hct 31.8 L MCV 91.6 MCH 30.0 MCHC 32.7 RDW 13.8 Plt Count 58 L MPV 10.3 Neut % (Auto) 68.3 Lymph % (Auto) 19.3 [place] % (Auto) 12.0 H Eos % (Auto) 0.0 L Baso % (Auto) 0.0 L Neut # (Auto) 1.8 Lymph # (Auto) 0.5 L [place] # (Auto) 0.3 Eos # (Auto) 0.0 Baso # (Auto) 0.0 Sodium 132 L Potassium 3.9 Chloride 87 L Carbon Dioxide 38 H Anion Gap 10.9 BUN 16 Creatinine 0.70 D Estimated Creat Clear 78 Estimated GFR 111 Est GFR ( Amer) 135 D Glucose 151 H D Calcium 8.9 Preliminary micro results at discharge 07/27/24 21:01 Blood Culture - Preliminary Blood NO GROWTH AFTER 24 HOURS 07/27/24 21:01 Blood Culture - Preliminary Blood NO GROWTH AFTER 24 HOURS DS: Diagnosis Discharge Diagnosis (1) Multifocal pneumonia: Status: Acute Code(s): J18.9 - Pneumonia, unspecified organism (2) Acute exacerbation of chronic obstructive pulmonary disease: Status: Acute Code(s): J44.1 - Chronic obstructive pulmonary disease with (acute) exacerbation (3) Physical deconditioning: Status: Acute Code(s): R53.81 - Other malaise (4) Thrombocytopenia: Status: Acute Code(s): D69.6 - Thrombocytopenia, unspecified (5) BPH (benign prostatic hyperplasia): Status: Acute Code(s): N40.0 - Benign prostatic hyperplasia without lower urinary tract symptoms (6) Neutropenia: Status: Acute Code(s): D70.9 - Neutropenia, unspecified Meds Home Medications and Allergies Home Medications ?Medication ?Instructions ?Recorded ?Confirmed ?Type alfuzosin 10 mg tablet,extended 10 mg PO DAILY 90 days #90 tabs 12/25/23 07/28/24 Rx release 24 hr allopurinol 300 mg tablet 300 mg PO DAILY 90 days #90 tabs 05/10/24 07/28/24 Rx levothyroxine 150 mcg tablet 150 mcg PO DAILY #90 tabs 06/18/24 07/28/24 Rx metoprolol tartrate 50 mg tablet 75 mg (1.5 x 50 mg) PO BID #180 06/18/24 07/28/24 Rx tabs potassium chloride 20 mEq 20 meq PO DAILY #90 tabs 06/18/24 07/28/24 Rx tablet,extended release lovastatin 40 mg tablet 40 mg PO HS 30 days #30 tabs 06/24/24 07/28/24 Rx aspirin 81 mg chewable tablet 81 mg PO DAILY 07/28/24 07/28/24 History docusate sodium 100 mg capsule 100 mg PO DAILY 07/28/24 07/28/24 History fluticasone fur. 100 mcg-umeclid 1 inh inhalation DAILY 07/28/24 07/28/24 Histor y 62.5 mcg-vilant 25 mcg inhalat.powder (Trelegy Ellipta) bumetanide 0.5 mg tablet 0.5 mg PO DAILY #30 tabs 07/29/24 Rx levofloxacin 750 mg tablet 750 mg PO 1100 5 days #5 tabs 07/29/24 Rx midodrine 2.5 mg tablet 2.5 mg PO TID #90 tabs 07/30/24 Rx New Prescriptions to Start Prescriptions: bumetaniJose Buchanan levofloxacin Jose Mackey Allergies Allergy/AdvReac Type Severity Reaction Status Date / Time No Known Drug Allergies Allergy Unknown Unknown Verified 06/18/24 09:15 (NKDA) allergy reaction Discharge Plan Disposition Patient Disposition: Hospice - Home Condition: Fair Discharge Order Discharge Orders: Discharge Order (Routine); Ordered 07/29/24 Ordered By: Jose Mackey Follow up Plan Follow up with: Arie Sosa MD [Physician] - 08/15/24 1:00 pm Prescriptions/Medication Reconciliation: New levofloxacin 750 mg Tablet 750 mg PO 1100 5 Days Qty: 5 0RF bumetanide 0.5 mg tablet 0.5 mg PO DAILY Qty: 30 0RF Continued alfuzosin 10 mg tablet extended release 24 hr 10 mg PO DAILY 90 Days Qty: 90 1RF Rx Instructions: administer after the same meal each day levothyroxine 150 mcg tablet 150 mcg PO DAILY Qty: 90 1RF allopurinol 300 mg tablet 300 mg PO DAILY 90 Days Qty: 90 0RF potassium chloride 20 mEq tablet extended release 20 meq PO DAILY Qty: 90 3RF metoprolol tartrate 50 mg tablet 75 mg PO BID Qty: 180 3RF lovastatin 40 mg tablet 40 mg PO HS 30 Days Qty: 30 2RF Trelegy Ellipta 100-62.5-25 mcg Blister With Device 1 inh INHALATION DAILY docusate sodium 100 mg Capsule 100 mg PO DAILY aspirin 81 mg Tablet,Chewable 81 mg PO DAILY No Action midodrine 2.5 mg tablet 2.5 mg PO TID Qty: 90 1RF Problem Reconciliation Problems Reviewed?: Yes Patient Discharge Instructions ACTIVITY: Continue current activity DIET: continue same diet Patient Instructions: Pleural Effusion, Chronic Obstructive Pulmonary Disease, DI for Chronic Obstructive Pulmonary Disease, DI for Pneumonia -- Adult, DI for Pleural Effusion Print Language: Czech Providers Primary Care Provider: Miles Márquez Admit Provider: Jose Mackey Attending Provider: Jose Mackey
[2024-07-29 12:00] VITALS: BP 116/68; PULSE 64; PULSE 70; RESP 18; O2SAT 97
[2024-07-29] MEDS: levoFLOXacin 750 MG TABLET PO (12:43)
--- NOTE | 2024-07-29 14:19 | PC.NURSE ---
pt waiting on transportation home
== END 2024-07-29 15:55 | disposition hospice, home (50) | DRG 194 ==
LOC: ER 23:27 → 2ND 07-28 00:05
PROVIDERS: Nurse Practitioner Family; Student in an Organized Health Care Education/Training Program; Admitting Provider Internal Medicine Adolescent Medicine; Emergency Provider Emergency Medicine; PCP Family Medicine; Visit Provider Internal Medicine Adolescent Medicine
DX: J18.9 Pneumonia, unspecified organism (principal); C34.91 Malignant neoplasm of unspecified part of right bronchus or lung; J44.1 Chronic obstructive pulmonary disease with (acute) exacerbation; D61.818 Other pancytopenia; C34.92 Malignant neoplasm of unspecified part of left bronchus or lung; C79.9 Secondary malignant neoplasm of unspecified site; E87.1 Hypo-osmolality and hyponatremia; E46 Unspecified protein-calorie malnutrition; I50.22 Chronic systolic (congestive) heart failure; R53.81 Other malaise; D69.6 Thrombocytopenia, unspecified; N40.0 Benign prostatic hyperplasia without lower urinary tract symptoms; D70.9 Neutropenia, unspecified; I25.10 Atherosclerotic heart disease of native coronary artery without angina pectoris; I87.2 Venous insufficiency (chronic) (peripheral); Z68.26 Body mass index [BMI] 26.0-26.9, adult; J44.89 Other specified chronic obstructive pulmonary disease; I48.91 Unspecified atrial fibrillation; Z79.82 Long term (current) use of aspirin; Z79.51 Long term (current) use of inhaled steroids; Z79.899 Other long term (current) drug therapy; Z87.891 Personal history of nicotine dependence; Z99.81 Dependence on supplemental oxygen
CPT/HCPCS: 36415; 71045; 80048; 80053; 80061; 82803; 83880; 84484; 85025; 87040; 87070; 87205; 87389; 87636; 93005; 94640; 94760; 99291; J0456; J0696; J1100; J1939; J3475; J7050; J7620

== ENCOUNTER 2024-09-12 11:18 | Emergency (ER) | payer OTHER, SELFPAY ==
[2024-09-12] VITALS (8 sets, daily range): BP systolic 94–138; BP diastolic 47–71; PULSE 58–69; RESP 22–26; TEMP 36.4–36.6; O2SAT 82–98; BMI 23.0
--- NOTE | 2024-09-12 11:49 | PC.NURSE ---
Call placed to Hospice to notify of pt in ER and that MD would like an agent to present to ER for care/plan discussion.
--- NOTE | 2024-09-12 11:54 | CT_ITS ---
FINAL REPORT TECHNIQUE: Thin section axial CT with contrast with multiplanar reconstruction. This study was performed with techniques to keep radiation doses as low as reasonably achievable, (ALARA). Individualized dose reduction techniques using automated exposure control or adjustment of mA and/or kV according to the patient''s size were employed. CLINICAL HISTORY: Shortness of breath, lung ca/COPD pt COMPARISON: 03/08/2024 FINDINGS: Pulmonary vessels enhance in normal fashion without evidence of embolism. Thoracic aorta shows no dissection or aneurysm. There is an enlarging right upper lobe nodule on image 38 measuring 12 mm, previously measured 7 mm. There is diffuse interstitial prominence within the right lung, greatest at the lung bases, suspicious for lymphangitic tumor spread. Soft tissue density extending from the left hilum into the lingula is new. This is seen on image 73 and measures 47 x 34 mm, favored to represent tumor over pneumonia. Dense consolidation involving much of the central left lower lobe is suspicious for tumor and postobstructive change. There is compressive atelectasis in the right lower lobe. There are moderate right and tiny left pleural effusions. There is no pericardial effusion. Increasing multifocal adenopathy is compatible with metastasis. An AP window node measures 30 x 15 mm and previously was normal in size. There are multiple enlarged left hilar lymph nodes. The largest is a retrohilar node measuring 35 x 24 mm which is new from the prior study. There is significant subcarinal adenopathy and mild right paratracheal adenopathy. IMPRESSION: No evidence of pulmonary embolism. Significant progression of the lung cancer with intrathoracic metastatic disease. 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 Reviewed, Interpreted and Dictated by Shi Gibson MD Transcribed by Leslie Odom Authenticated and [facility]
--- NOTE | 2024-09-12 11:55 | ED_ITS ---
Discharge Plan Disposition Patient Disposition: Home, Self-Care Condition: Good Prescriptions Prescriptions: New levofloxacin 750 mg tablet 750 mg PO DAILY 7 Days Qty: 7 0RF Continued Jardiance 10 mg tablet 10 mg PO DAILY Qty: 30 3RF No Action alfuzosin 10 mg tablet extended release 24 hr 10 mg PO DAILY 90 Days Qty: 90 1RF Rx Instructions: administer after the same meal each day azelastine 137 mcg (0.1 %) spray,non-aerosol 137 mcg intranasal DAILY metoprolol tartrate 50 mg tablet 50 mg PO BID Qty: 60 5RF levothyroxine 150 mcg tablet 150 mcg PO DAILY Qty: 90 1RF potassium chloride 20 mEq tablet extended release 20 meq PO DAILY Qty: 90 3RF lovastatin 40 mg tablet 40 mg PO HS 30 Days Qty: 30 2RF midodrine 2.5 mg tablet 2.5 mg PO TID Qty: 90 1RF allopurinol 300 mg tablet 300 mg PO DAILY 90 Days Qty: 90 0RF dexamethasone 4 mg tablet 4 mg PO DAILY albuterol sulfate 0.63 mg/3 mL solution for nebulization 0.63 mg inhalation QIDP PRN (Reason: shortness of breath or wheezing) bumetanide 0.5 mg tablet 0.5 mg PO DAILYP PRN (Reason: dyspnea) Trelegy Ellipta 100-62.5-25 mcg Blister With Device 1 inh INHALATION DAILY docusate sodium 100 mg Capsule 100 mg PO DAILY aspirin 81 mg Tablet,Chewable 81 mg PO DAILY Referrals Follow up/Referrals: Miles Márquez MD [Primary Care Provider] - See instructions Activity Restrictions/Add. Instructions Additional Instructions/Restrictions: You were evaluated in the emergency department today. Please product picker your prescription for antibiotic. Follow-up closely with pulmonology as well as with your primary care provider. Return to the emergency department for new or worsening symptoms. Clinical Impressions Clinical Impression: Malignant neoplasm of unspecified part of unspecified bronchus or lung, Pleural effusion on right, Acute on chronic respiratory failure with hypoxia and hypercapnia, Postobstructive pneumonia Instructions Patient Instructions: DI for Chronic Obstructive Pulmonary Disease, DI for Pneumonia -- Adult Print Language Print Language: Turkmen Discharge ED Provider: Irma Carrasco [facility] General Chief Complaint: Shortness of Breath/Dyspnea Stated Complaint: Low O2-77, sent by Kasia Time Seen by Provider: 09/12/24 11:25 Mode of Arrival: Wheelchair Source of Information: Patient, Relative and Medical Record Limitations: No Limitations Description of Symptoms (Recalled from ER Triage Doc. by RN): Pt sent to ER from Cardiology Clinic d/t hypoxia of 77% on 4LPM NC. Pt does have known lung cancer and is currently on hospice. Pt and his family report he has been feeling weaker and more difficulty with ADLs and having his oxygen bounce back . On arrival to ER, pt was 69% on 4LPM NC home concentrator. Pt placed on ER O2 of 4LPM and sat improved to 82%. Titrated o2 to 5LPM and sat improved to 90%. Pt states he is starting to feel better . Report he just compelted a course of steroids and ABX on Monday (09/09). Pt states a hospice nurse was at his residence this AM d/t increasing chest pain and SOA. States he used neb tx and inhalers and recommended to see provider, pt felt it would be ok to wait for cardiology appt later today. History of Present Illness HPI narrative: This patient is a 68-year-old male with a history of metastatic lung cancer on hospice for his cancer, COPD on 3.5 L nasal cannula chronically, paroxysmal atrial fibrillation, hypertension, hyperlipidemia, CAD, CHF presenting to the emergency department for shortness of breath and low oxygen saturation. Patient was recently treated for URI with antibiotics and steroids and had been doing better until he finished those. This was about a week ago. He started feeling more short of breath since yesterday, especially with getting up and walking around. He was noted to have an O2 saturation in the 70s on 4 L at cardiology clinic. Given this, they sent him over here for evaluation. He denies any concerns or complaints aside from the shortness of breath. No fevers, pain, or other concerns. He notes that though he is on hospice, he would like to seek treatment for any sort of infection such as pneumonia and would like to seek symptomatic management of his shortness of breath. He is just on hospice for the cancer and is not undergoing any sort of chemo/radiation. Related Data Home Medications ?Medication ?Instructions ?Recorded ?Confirmed aspirin 81 mg chewable tablet 81 mg PO DAILY 07/28/24 09/12/24 docusate sodium 100 mg capsule 100 mg PO DAILY 07/28/24 09/12/24 fluticasone fur. 100 mcg-umeclid 1 inh inhalation DAILY 07/28/24 09/12/24 62.5 mcg-vilant 25 mcg inhalat.powder (Trelegy Ellipta) azelastine 137 mcg (0.1 %) nasal 137 mcg intranasal DAILY 08/15/24 09/12/24 spray albuterol sulfate 0.63 mg/3 mL 0.63 mg inhalation QIDP PRN 09/12/24 09/12/24 solution for nebulization shortness of breath or wheezing bumetanide 0.5 mg tablet 0.5 mg PO DAILYP PRN dyspnea 09/12/24 09/12/24 dexamethasone 4 mg tablet 4 mg PO DAILY 09/12/24 09/12/24 Previous Rx's ?Medication ?Instructions ?Recorded alfuzosin 10 mg tablet,extended 10 mg PO DAILY 90 days #90 tabs 12/25/23 release 24 hr levothyroxine 150 mcg tablet 150 mcg PO DAILY #90 tabs 06/18/24 potassium chloride 20 mEq 20 meq PO DAILY #90 tabs 06/18/24 tablet,extended release lovastatin 40 mg tablet 40 mg PO HS 30 days #30 tabs 06/24/24 midodrine 2.5 mg tablet 2.5 mg PO TID #90 tabs 07/30/24 allopurinol 300 mg tablet 300 mg PO DAILY 90 days #90 tabs 08/12/24 metoprolol tartrate 50 mg tablet 50 mg PO BID #60 tabs 08/15/24 empagliflozin 10 mg tablet 10 mg PO DAILY #30 tabs 09/12/24 (Jardiance) levofloxacin 750 mg tablet 750 mg PO DAILY 7 days #7 tabs 09/12/24 Allergies Allergy/AdvReac Type Severity Reaction Status Date / Time No Known Drug Allergies Allergy Unknown Unknown Verified 09/12/24 11:18 (NKDA) allergy reaction [facility] Disclaimer: The information contained in this section may have been updated after the patient was seen, as this information can be updated by other users. Medical History PAF (paroxysmal atrial fibrillation) HFrEF (heart failure with reduced ejection fraction) Screening for colon cancer Chronic constipation Acute on chronic respiratory failure with hypoxemia CHF exacerbation Impotence Urine retention Constipation Encopresis Constipation Acute urinary retention Shortness of breath Left breast abscess Dysphagia Constipation Left breast mass History of ASCVD Community acquired pneumonia Acute and chronic respiratory failure with hypoxia Radiation esophagitis Esophageal stricture Pleural effusion on right Acute respiratory failure with hypoxia Acute hypercapnic respiratory failure Acute exacerbation of chronic obstructive pulmonary disease Acute hypoxic on chronic hypercapnic respiratory failure COPD (chronic obstructive pulmonary disease) Olecranon bursitis of right elbow Elbow mass Swelling Hilar lymphadenopathy Allergic rhinitis History of lung or bronchial cancer Mediastinal lymphadenopathy History of esophageal dilatation Sinusitis Gynecomastia Discharge from left nipple COPD (chronic obstructive pulmonary disease) Dyspnea on exertion Malignant neoplasm of unspecified part of unspecified bronchus or lung Pulmonary emphysema Smoking greater than 30 pack years Lung nodule Tobacco abuse counseling HAP (hospital-acquired pneumonia) Influenza A Acute on chronic respiratory failure with hypoxia and hypercapnia Urinary tract infection Tobacco abuse AAA (abdominal aortic aneurysm) Melanoma Thyroid disease Sinus problem History of radiation therapy History of chemotherapy Cataract Myocardial infarction Lung disease DVT (deep venous thrombosis) Cancer Atherosclerotic heart disease Hypotension HLD (hyperlipidemia) Abnormal EKG CAD (coronary artery disease) CHF (congestive heart failure) Gout Tobacco abuse disorder Hypertension Hypothyroidism COPD exacerbation Surgical History H/O melanoma excision History of heart artery stent History of cardiac cath History of colonoscopy Family History Other AAA (abdominal aortic aneurysm) Coronary artery disease Gout Heart attack Hypertension Social History Smoking Status: Former smoker tobacco type: cigarettes packs per day: 1 smoking status stop date: 2023 alcohol intake: former substance use type: denies use 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ional status: retired and disabled Travel in the last 8 weeks: None household members: spouse housing: house lives independently: No marital status: education level: high school service: No [place] [facility]: No caffeine: No special honey needs: No agree to transfusion: No do you feel safe at home: Yes victim of physical abuse: No victim of emotional abuse: No victim of sexual abuse: No would you like helpful sources: No Have you lived/traveled outside [place] in past 30 days?: No Contact w/someone who lives/traveled outside [place] past 30 days?: No Exposure to someone with infectious disease in past 14 days?: No Do you have a fever (greater than 100.4 F or 38 C)?: No Have you tested positive for COVID-19: No Exposed to someone with COVID-19 in past 14 days?: No Do you have a sore throat?: No Do you have a cough?: No Do you have any weakness?: No Do you have any diarrhea?: No Are you experiencing any unusual bleeding?: No Do you have any muscle aches/pain?: No Do you have any abdominal pain?: No Are you experiencing loss of taste or smell?: No Other Medical History Have you received the Flu Vaccine for this season: No Have you received the Pneumonia Vaccine: Yes ROS Obtained: Yes All systems reviewed & no additional complaints except as documented Physical Exam General General appearance: alert Comment: Frail, chronically ill-appearing Head Head exam: atraumatic and normocephalic Eye Eye exam: Present normal appearance, PERRL and EOMI ENT ENT exam: Present normal oropharynx, mucous membranes dry and normal external ear exam Neck Neck exam: Present normal inspection, full ROM and trachea midline; Absent tenderness Chest Chest inspection: Present normal inspection and symmetric chest wall rise; Absent tenderness Respiratory Respiratory exam: Present respiratory distress, wheezes, accessory muscle use and prolonged expiratory phase; Absent stridor Cardiovascular Cardiovascular exam: Present regular rate and normal rhythm Abdominal Exam Abdominal exam: Present soft; Absent distention, tenderness or guarding Extremities Exam Extremities exam: Present normal inspection, full ROM and normal capillary refill; Absent tenderness or edema Back Exam Back exam: Present normal inspection and full ROM; Absent tenderness Neurological Exam Neurological exam: Present alert, oriented X3 and CN II-XII intact; Absent motor sensory deficit Psychiatric Psychiatric exam: Present normal affect and normal mood Skin Skin exam: Present warm and dry HEART Score HEART Score HEART Score assessment performed?: Yes History (anamnesis): Slightly suspicious ECG: Normal Age: >65 years Risk factors: Atherosclerosis history Troponin: </= normal limit HEART Score: 4 Critical Care Critical Care Time Critical Care Time: Yes Attestation: On 09/12/24, the high probability of a clinically significant, sudden or life threatening deterioration of the following system(s) required my full and direct attention, intervention and personal management. The time I documented below is in addition to time spent performing reported procedures but includes the following listed in this critical care notation. Total Time Total Critical Care Time: 30 Medical Decision Making Lanre Inquiry Pt receiving controlled substance: No Vital Signs Vital Signs: 09/12/24 11:19 09/12/24 11:31 09/12/24 13:30 Temperature 97.6 F Temperature Source Oral Pulse Rate 59 L 63 Pulse Rate [Right] 59 L Respiratory Rate 26 H Blood Pressure 101/49 L 119/55 L Blood Pressure [Right Arm] 94/47 L Blood Pressure Mean Blood Pressure Mean [Right Arm] 62 Blood Pressure Source Blood Pressure Source [Right Arm] Automatic Cuff 02 Sat by Pulse Oximetry 82 L 95 96 Oxygen Delivery Method Nasal Cannula Oxygen Flow Rate (LPM) 4 09/12/24 14:00 09/12/24 14:30 09/12/24 15:00 Temperature Temperature Source Pulse Rate 60 58 L 69 Pulse Rate [Right] Respiratory Rate Blood Pressure 130/58 L 127/60 138/71 Blood Pressure [Right Arm] Blood Pressure Mean Blood Pressure Mean [Right Arm] Blood Pressure Source Blood Pressure Source [Right Arm] 02 Sat by Pulse Oximetry 93 L 94 L 94 L Oxygen Delivery Method Nasal Cannula Nasal Cannula Nasal Cannula Oxygen Flow Rate (LPM) 5 5 5 09/12/24 15:30 09/12/24 15:35 Temperature 97.8 F Temperature Source Oral Pulse Rate 60 Pulse Rate [Right] Respiratory Rate 22 Blood Pressure 121/69 121/69 Blood Pressure [Right Arm] Blood Pressure Mean 95 Blood Pressure Mean [Right Arm] Blood Pressure Source Automatic Cuff Blood Pressure Source [Right Arm] 02 Sat by Pulse Oximetry Oxygen Delivery Method Nasal Cannula Oxygen Flow Rate (LPM) 5 Lab Data Labs: Lab Results 09/12/24 11:15: WBC 3.5 L, RBC 3.86 L, Hgb 11.8 L, Hct 36.2 L, MCV 93.8, MCH 30.6, MCHC 32.6, RDW 14.6, Plt Count 12 L*, MPV 9.4, Neut % (Auto) 67.2, Lymph % (Auto) 15.1, Glascock % (Auto) 15.1 H, Eos % (Auto) 1.1, Baso % (Auto) 0.6, Neut # (Auto) 2.4, Lymph # (Auto) 0.5 L, Gl[place]ock # (Auto) 0.5, Eos # (Auto) 0.0, Baso # (Auto) 0.0, PT 11.4, INR 1.02, APTT 25.3, Sodium 123 L, Potassium 4.7, Chloride 85 L, Carbon Dioxide 40 H, Anion Gap 2.7 L, BUN 17, Creatinine 0.60 L, Estimated Creat Clear 75, Estimated GFR 133, Est GFR ( Amer) 161, Glucose 89, Calcium 9.2, Magnesium 1.7, Total Bilirubin 0.9, AST 89 H, ALT 81 H, Alkaline Phosphatase 69, Troponin I < 0.01, NT-Pro-B Natriuret Pep 1910 H, Total Protein 5.9 L, Albumin 3.4 L, Globulin 2.5, Albumin/Globulin Ratio 1.4 09/12/24 12:15: VBG pH 7.34, VBG pCO2 69.3 H, VBG pO2 60.9 H, VBG HCO3 36.1 H, V BG Total CO2 38.3 H, VBG O2 Saturation 90.2 H, VBG Base Excess 10.3 H, VBG Lactic Acid 0.9 09/12/24 11:15 09/12/24 11:15 Response Orders (Tests/Meds): ED MEDICATIONS Discontinued Medications Generic Name Dose Route Start Last Admin Trade Name Freq PRN Reason Stop Dose Admin Albuterol/Ipratropium 9 ml 09/12/24 11:54 09/12/24 12:09 Ipratropium/Albuterol 3 Ml Neb IH 09/12/24 11:55 9 ml ONCE ONE Administration Lactated Ringer's 1,000 mls @ 999 mls/hr 09/12/24 12:03 09/12/24 12:09 Lactated Ringer's 1000 Ml Bag IV 09/12/24 13:03 999 mls/hr .Q1H1M ONE Administration Magnesium Sulfate 2 gm in 50 mls @ 50 mls/hr 09/12/24 12:43 09/12/24 12:47 Magnesium Sulfate 2gm/50ml Premix IV 09/12/24 13:42 50 mls/hr ONCE ONE Administration Iopamidol 80 ml 09/12/24 13:09 09/12/24 13:11 Iopamidol-370 (76%);100ml Bottle IV 09/12/24 13:10 80 ml ONCE ONE Administration Levofloxacin 750 mg 09/12/24 13:39 09/12/24 13:48 Levofloxacin 750 Mg Tablet PO 09/12/24 13:40 750 mg ONCE ONE Administration Methylprednisolone Sodium Succinate 125 mg 09/12/24 11:54 09/12/24 12:09 Methylprednisolone Sod Succ 125mg Vial IV 09/12/24 11:55 125 mg ONCE ONE Administration Sodium Chloride 3 ml 09/12/24 12:02 Sodium Chloride 3% 15ml Neb IH 10/12/24 12:01 ONCE PRN INDUCE SPUTUM COLLECTION Sodium Chloride 50 ml 09/12/24 13:09 09/12/24 13:11 0.9 % Sodium Chloride 50 Ml Vial IV 09/12/24 13:10 50 ml ONCE ONE Administration Sodium Chloride 10 ml 09/12/24 13:09 09/12/24 13:11 Sodium Chloride 0.9% 10ml Syr (Rad Only) IV 09/12/24 13:10 10 ml ONCE ONE Administration ORDERS Category Date Time Status CT angio chest PE protocol Stat Cat Scan 09/12/24 11:54 Completed Consult to Pulmonology [CONS] Stat Cons 09/12/24 13:55 Active BNP [NT Pro Brain Natriuretic Pep.] Stat Lab 09/12/24 11:15 Completed CBC w/Auto Diff [Complete Blood Count Auto Diff] Stat Lab 09/12/24 11:15 Completed CMP [Comprehensive Metabolic Panel] Stat Lab 09/12/24 11:15 Completed MAG [Magnesium] Stat Lab 09/12/24 11:15 Completed Mini Respiratory Panel Stat Lab 09/12/24 15:00 Received PT INR [Prothrombin Time INR] Stat Lab 09/12/24 11:15 Completed PTT [Activated Partial Thrombo Time] Stat Lab 09/12/24 11:15 Completed Trop I [Troponin I] Stat Lab 09/12/24 11:15 Completed Blood Culture Stat Micro 09/12/24 12:36 Received Sputum Culture & Gram Stain Stat Micro 09/12/24 12:14 Received VBG [Venous Blood Gas] Stat RT 09/12/24 12:15 Completed ECG Data Tracing #1: Attestation: I reviewed this ECG and interpreted as documented below: ECG Narrative: Sinus bradycardia with a ventricular rate of 57 bpm. Occasional premature complexes. Incomplete right bundle branch block. Left anterior fascicular block. No acute STEMI. ECG initial impression date: 09/12/24 ECG initial impression time: 12:09 MDM Narrative Medical Decision Narrative: In summary, this patient is a 68-year-old male presenting to the Emergency Department for evaluation of acute on chronic shortness of breath. Differential diagnoses considered include but are not limited to COPD exacerbation, worsening malignancy, PE, worsening chronic pleural effusion, CHF exacerbation, acute on chronic respiratory failure, pneumonia. Ruling out the most morbid conditions drove assessment. It should be noted patient's history includes metastatic lung cancer, CHF, COPD, hypertension, hyperlipidemia, CAD, paroxysmal atrial fibrillation which likely are not at goal therapy. This complicates all aspects of care by increasing patient's risk for morbidity. I reviewed patient's past medical records and noted recent evaluation 07/27/2024 for similar issues, at which point the patient was admitted for pleural effusion, acute on chronic respiratory failure. On exam, the patient is sitting upright. He is thin, frail, chronically ill- appearing. He looks dry on clinical exam with dry mucous membranes. He is hypoxic on 4 L nasal cannula requiring 5 L to maintain a normal O2 saturation greater than 90%. He is wheezing, accessory muscle use, prolonged expiratory phase and conversational dyspnea. He especially desaturates with any attempted movement. Workup included CBC, CMP, troponin, BNP, magnesium, CTA PE protocol, VBG, EKG. he looks dry on exam with poor oral intake as well. He has hypotension with systolics in the 90s and maps in the high 50s. Given this, he was given a liter bolus of IV fluids. Patient was given DuoNebs x 3 as well as IV methylprednisolone for symptomatic improvement as well as IV magnesium for severe COPD exacerbation with respiratory failure. I independently interpreted CT scan prior to the radiologist read and noted worsening cancer burden, chronic right pleural effusion, postobstructive pneumonia. Please see their read for final interpretation. Labs were obtained that demonstrated pancytopenia, worsening thrombocytopenia than normal. Chemistry demonstrates acute on chronic hyponatremia, mild transaminitis.. On reassessment, patient had great improvement after administration of interventions above. He states he is feeling a lot better overall and has improved work of breathing. His pressures and perfusion have improved. I ordered Levaquin for his pneumonia. I had interactive discussions with Dr. Sosa with pulmonology and Dr. Mackey with hospital medicine. They, patient would not be a good candidate for thoracentesis as an inpatient given his platelet count is very low. His effusion also is not as large as it has been in the past. They offered him admission for antibiotics versus going home with continued hospice care and antibiotics, and he elects to go home. Given this, patient was discharged home with prescription for Levaquin..
--- NOTE | 2024-09-12 12:00 | PC.NURSE ---
[facility] returned call and will have pt's hospice nurse visit pt in ER.
--- NOTE | 2024-09-12 12:05 | ECG_ITS ---
APPROVED REPORT Exam: Resting ECG HR:57 bpm ECG Measurements Heart Rate 57 AXES QRSd 105 QRS -52 QT 390 T 73 QTc 385 Conclusion ATRIAL FIBRILLATION WITH SLOW VENTRICULAR RESPONSE INDETERMINATE AXIS INCOMPLETE RIGHT BUNDLE BRANCH BLOCK [90+ ms QRS DURATION, TERMINAL R IN V1/V2, 40+ ms S IN I/aVL/V4/V5/V6] LEFT ANTERIOR FASCICULAR BLOCK [QRS AXIS <= -45, QR IN I, RS IN II] No STEMI Electronically signed by : OLEKSANDR SNOW, 09/13/2024 07:10:05
[2024-09-12] MEDS: LACTATED RINGERS 1000ML 1,000 ML 999 ML IV (12:09)
[2024-09-12] MEDS: IPRATROPIUM/ALBUTEROL 3 ML NEB 9 ML IH (12:09)
[2024-09-12] MEDS: METHYLPREDNISOLONE SOD SUCC 125MG VIAL 125 MG IV (12:09)
--- NOTE | 2024-09-12 12:25 | PC.NURSE ---
RT called to notify of VBG order and blood in the lab
[2024-09-12 12:30] LABS: Lactate Venous 0.9 mmol/L (0.4-2.0); VBG Base Excess 10.3 mmol/L (-2.4-2.3); VBG HCO3 36.1 mmol/L (23-30); VBG Oxygen Saturation 90.2 % (50-70); VBG PCO2 69.3 mmol/L (35-51); VBG PH 7.34 mmol/L (7.31-7.41); VBG PO2 60.9 mmol/L (28-40); VBG Total CO2 38.3 mmol/L (23-27)
[2024-09-12 12:34] LABS: Alanine Aminotransferase 81 U/L (12-78); Albumin Level 3.4 g/dl (3.5-5.0); Albumin/Globulin Ratio 1.4 (1.1-1.8); Alkaline Phosphatase 69 U/L (38-126); Aspartate Amino Transferase 89 U/L (17-59); Bilirubin,Total 0.9 mg/dl (0.2-1.3); Blood Urea Nitrogen 17 mg/dl (9-20); Calcium 9.2 mg/dl (8.4-10.2); Chloride 85 mmol/L (98-107); Creatinine Clearance Estimated 75 mL/min (50-200); Estimated Glomerular Filt Rate 133 ml/min (>60); GFR (African American) 161 ML/MIN (>60); Globulin 2.5 g/dL (1.3-3.2); Glucose 89 mg/dl (74-100); Magnesium 1.7 mg/dl (1.6-2.3); Potassium 4.7 mmoL/L (3.5-5.1); Sodium 123 mmol/L (136-145); Total Protein,Serum 5.9 g/dl (6.3-8.2)
[2024-09-12 12:46] LABS: NT Pro Brain Natriuretic Pep. 1910 pg/mL (0-125)
[2024-09-12 12:47] LABS: Troponin I < 0.01 ng/ml (0.00-0.034)
[2024-09-12] MEDS: MAGNESIUM SULFATE IN WATER 2 GM/50 ML PIGGYBACK IV (12:47)
[2024-09-12] MEDS: SODIUM CHLORIDE 0.9% 10ML SYR (RAD ONLY) 10 ML IV (13:11)
[2024-09-12] MEDS: IOPAMIDOL-370 (76%);100ML BOTTLE 80 ML IV (13:11)
[2024-09-12] MEDS: 0.9 % SODIUM CHLORIDE 50 ML VIAL IV (13:11)
[2024-09-12 13:25] LABS: Anion Gap 2.7 mEq/L (5-15); Carbon Dioxide 40 mmol/L (22.0-30.0)
[2024-09-12 13:34] LABS: Basophils % 0.6 % (0.1-2.0); Eosinophils % 1.1 % (0.1-12.0); Hematocrit 36.2 % (42.0-52.0); Hemoglobin 11.8 g/dL (14.1-18.0); Lymphocytes # 0.5 K/mm3 (0.7-4.5); Lymphocytes % 15.1 % (10-50); Mean Corpuscular HGB Conc 32.6 g/dL (31.8-35.4); Mean Corpuscular Hemoglobin 30.6 pg (27.0-31.2); Mean Corpuscular Volume 93.8 fl (80-94); Mean Platelet Volume 9.4 fl (7.4-10.4); Monocytes # 0.5 K/mm3 (0.1-1.0); Monocytes % 15.1 % (1.7-9.3); Neutrophils # 2.4 K/mm3 (1.8-7.8); Neutrophils % 67.2 % (37.0-80.0); Red Blood Count 3.86 M/mm3 (4.60-6.20); Red Cell Distribution Width 14.6 % (11.5-17.5); White Blood Count 3.5 K/mm3 (4.8-10.8)
--- NOTE | 2024-09-12 13:35 | PC.NURSE ---
Dr Carrasco notified with critical platelet value of 12.
[2024-09-12 13:37] LABS: Platelet Count 12 K/mm3 (142-424)
--- NOTE | 2024-09-12 13:37 | PC.NURSE ---
critical platelet count 12. pt name and r/v. dr lemos notified
[2024-09-12] MEDS: levoFLOXacin 750 MG TABLET PO (13:48)
--- NOTE | 2024-09-12 13:48 | PC.NURSE ---
Dr. Carrasco s/w Dr. Sosa
--- NOTE | 2024-09-12 13:51 | PC.NURSE ---
dr lemos speaking with dr pressley
--- NOTE | 2024-09-12 14:02 | PC.NURSE ---
Dr. Carrasco is s.w Dr Otero for admission
--- NOTE | 2024-09-12 14:08 | PC.NURSE ---
rounded on the pt. the pt voices that he does not need anything at this time. call light is within reach of the pt. family members are present at the bedside.
[2024-09-12 14:40] LABS: Activated Partial Thrombo Time 25.3 seconds (22.8-30.6); INR 1.02 (0.9-1.1); Prothrombin Time 11.4 seconds (10.1-12.5)
--- NOTE | 2024-09-12 14:40 | HMH.PHAINT1 ---
Pharmacy Intervention Comments: MEDICATION RECONCILIATION COMPLETED ON PATIENT USING EXTERNAL FILL HISTORY FROM PHARMACY AND DISCHARGE SUMMARY FROM PREVIOUS ADMISSION. -SILVA LOVE, LEORAD
--- NOTE | 2024-09-12 14:53 | PC.NURSE ---
Dr Mackey at bedside
[2024-09-12 15:07] LABS: Coronavirus 19, PCR Not Detected (NotDetected); Human Rhinovirus Not Detected (NotDetected); Influenza A, PCR Not Detected (NotDetected); Influenza B, PCR Not Detected (NotDetected); Respiratory Syncytial Virus Not Detected (NotDetected)
--- NOTE | 2024-09-12 15:09 | P.CONS_ITS ---
History of Present Illness *Admission Date: 09/12/24 *Reason for visit:: Shortness of breath, increased O2 requirement *History of present illness: Mr. Medeiros is a 68-year-old male with known history of metastatic lung cancer, end-stage COPD on 3-1/2 L at baseline, complicated by HFrEF. Patient is also on hospice. He presented initially to [facility] today for cardiology follow-up for refill of medications. While obtaining his vitals, found to be hypoxic with O2 sats in the 70s on 4 L. Was sent to the ER for further evaluation. In the ER, states he has been feeling more short of breath for the past few days. Denies chest pain, nausea, vomiting. No fevers but has had some chills. Family is at bedside with him. Improved with 5 L oxygen to sats in the low 90s. Workup in the ER with chest CT showing small moderate effusions bilaterally, smaller than previous visit when he had thoracentesis. Additionally noted to have white count of 3.5. Kidney function at baseline. Has focal consolidation in left lower lung concerning for postobstructive pneumonia on CT. Medicine was consulted for evaluation. Case was discussed with pulmonology. On evaluation, patient appears comfortable in wheelchair on 5 L. States he would like to treat the problem at hand. Discussed risks and benefits of thoracentesis. His platelets are 12 today. In addition, his effusions while present are not as large as previous visit and the presence of a pneumonia better explains his increased oxygen requirement versus the need to drain effusions. Discussed treating his pneumonia with antibiotics versus admitting, transfusing platelets, considering thoracentesis in a day or 2 pending his response to antibiotics. Patient was not sure he wanted to be admitted and would rather be at home where he is comfortable and treat his infection with antibiotics. Swabbed for COVID and flu, found to be negative. Case management evaluated the patient with me. Communicated with hospice nurse as decisions were made. [facility] Disclaimer: The information contained in this section may have been updated after the patient was seen, as this information can be updated by other users. Medical History PAF (paroxysmal atrial fibrillation) HFrEF (heart failure with reduced ejection fraction) Screening for colon cancer Chronic constipation Acute on chronic respiratory failure with hypoxemia CHF exacerbation Impotence Urine retention Constipation Encopresis Constipation Acute urinary retention Shortness of breath Left breast abscess Dysphagia Constipation Left breast mass History of ASCVD Community acquired pneumonia Acute and chronic respiratory failure with hypoxia Radiation esophagitis Esophageal stricture Pleural effusion on right Acute respiratory failure with hypoxia Acute hypercapnic respiratory failure Acute exacerbation of chronic obstructive pulmonary disease Acute hypoxic on chronic hypercapnic respiratory failure COPD (chronic obstructive pulmonary disease) Olecranon bursitis of right elbow Elbow mass Swelling Hilar lymphadenopathy Allergic rhinitis History of lung or bronchial cancer Mediastinal lymphadenopathy History of esophageal dilatation Sinusitis Gynecomastia Discharge from left nipple COPD (chronic obstructive pulmonary disease) Dyspnea on exertion Malignant neoplasm of unspecified part of unspecified bronchus or lung Pulmonary emphysema Smoking greater than 30 pack years Lung nodule Tobacco abuse counseling HAP (hospital-acquired pneumonia) Influenza A Acute on chronic respiratory failure with hypoxia and hypercapnia Urinary tract infection Tobacco abuse AAA (abdominal aortic aneurysm) Melanoma Thyroid disease Sinus problem History of radiation therapy History of chemotherapy Cataract Myocardial infarction Lung disease DVT (deep venous thrombosis) Cancer Atherosclerotic heart disease Hypotension HLD (hyperlipidemia) Abnormal EKG CAD (coronary artery disease) CHF (congestive heart failure) Gout Tobacco abuse disorder Hypertension Hypothyroidism COPD exacerbation Surgical History H/O melanoma excision History of heart artery stent History of cardiac cath History of colonoscopy Family History Other AAA (abdominal aortic aneurysm) Coronary artery disease Gout Heart attack Hypertension Social History Smoking Status: Former smoker tobacco type: cigarettes packs per day: 1 smoking status stop date: 2023 alcohol intake: former substance use type: denies use 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ional status: retired and disabled Travel in the last 8 weeks: None household members: spouse housing: house lives independently: No marital status: education level: high school service: No penitentiary: No caffeine: No special honey needs: No agree to transfusion: No do you feel safe at home: Yes victim of physical abuse: No victim of emotional abuse: No victim of sexual abuse: No would you like helpful sources: No Have you lived/traveled outside [place] in past 30 days?: No Contact w/someone who lives/traveled outside [place] past 30 days?: No Exposure to someone with infectious disease in past 14 days?: No Do you have a fever (greater than 100.4 F or 38 C)?: No Have you tested positive for COVID-19: No Exposed to someone with COVID-19 in past 14 days?: No Do you have a sore throat?: No Do you have a cough?: No Do you have any weakness?: No Do you have any diarrhea?: No Are you experiencing any unusual bleeding?: No Do you have any muscle aches/pain?: No Do you have any abdominal pain?: No Are you experiencing loss of taste or smell?: No Review of Systems Review of Systems Review of systems (narrative): 14 point review of systems performed, pertinent positives and negatives as per HPI Exam Data for Last 24 hours Vital signs and Labs for Last 24 Hours: Temp Pulse Resp BP Pulse Ox O2 Del Method O2 Flow Rate 97.6 F 60 26 H 130/58 L 93 L Nasal Cannula 5 09/12/24 11:19 09/12/24 14:00 09/12/24 11:19 09/12/24 14:00 09/12/24 14:00 09/12/24 14:00 09/12/24 14:00 Laboratory Results - last 24 hr 09/12/24 11:15: WBC 3.5 L, RBC 3.86 L, Hgb 11.8 L, Hct 36.2 L, MCV 93.8, MCH 30.6, MCHC 32.6, RDW 14.6, Plt Count 12 L*, MPV 9.4, Neut % (Auto) 67.2, Lymph % (Auto) 15.1, [place] % (Auto) 15.1 H, Eos % (Auto) 1.1, Baso % (Auto) 0.6, Neut # (Auto) 2.4, Lymph # (Auto) 0.5 L, [place] # (Auto) 0.5, Eos # (Auto) 0.0, Baso # (Auto) 0.0, PT 11.4, INR 1.02, APTT 25.3, Sodium 123 L, Potassium 4.7, Chloride 85 L, Carbon Dioxide 40 H, Anion Gap 2.7 L, BUN 17, Creatinine 0.60 L, Estimated Creat Clear 75, Estimated GFR 133, Est GFR ( Amer) 161, Glucose 89, Calcium 9.2, Magnesium 1.7, Total Bilirubin 0.9, AST 89 H, ALT 81 H, Alkaline Phosphatase 69, Troponin I < 0.01, NT-Pro-B Natriuret Pep 1910 H, Total Protein 5.9 L, Albumin 3.4 L, Globulin 2.5, Albumin/Globulin Ratio 1.4 09/12/24 12:15: VBG pH 7.34, VBG pCO2 69.3 H, VBG pO2 60.9 H, VBG HCO3 36.1 H, V BG Total CO2 38.3 H, VBG O2 Saturation 90.2 H, VBG Base Excess 10.3 H, VBG Lactic Acid 0.9 I & O for Last 24 hours: Intake & Output 09/09/24 09/10/24 09/11/24 09/12/24 23:59 23:59 23:59 23:59 Weight 77.111 kg Constitutional Constitutional: mild distress, thin, chronically ill appearing and cooperative *Routine HEENT Exam Head: Present normocephalic Eye: Present EOMI and PERRL ENT: Present mucous membranes moist *Routine Neck Exam Neck: Present supple; Absent lymphadenopathy *Routine Respiratory Exam Respiratory: Present prolonged expiratory phase, rhonchi, crackles (prominent in Left lung field) and diminished air movement (right lung field); Absent wheezes *Routine Cardiovascular Exam Cardiovascular: Present RRR *Routine Abdominal Exam Abdominal: Present soft and normoactive bowel sounds; Absent tenderness *Routine Rectal Exam Patient deferred: visual exam *Routine Exam Patient deferred: penile exam *Routine Extremities Exam Extremities: Absent cyanosis, clubbing or edema *Routine Skin Exam Skin: Present intact and warm; Absent rash *Routine Neurological Exam Neurological: Present alert, oriented X3 and moving all extremities; Absent altered mental status Meds Home Medications and Allergies Home Medications ?Medication ?Instructions ?Recorded ?Confirmed ?Type alfuzosin 10 mg tablet,extended 10 mg PO DAILY 90 days #90 tabs 12/25/23 09/12/24 Rx release 24 hr levothyroxine 150 mcg tablet 150 mcg PO DAILY #90 tabs 06/18/24 09/12/24 Rx potassium chloride 20 mEq 20 meq PO DAILY #90 tabs 06/18/24 09/12/24 Rx tablet,extended release lovastatin 40 mg tablet 40 mg PO HS 30 days #30 tabs 06/24/24 09/12/24 Rx aspirin 81 mg chewable tablet 81 mg PO DAILY 07/28/24 09/12/24 History docusate sodium 100 mg capsule 100 mg PO DAILY 07/28/24 09/12/24 History fluticasone fur. 100 mcg-umeclid 1 inh inhalation DAILY 07/28/24 09/12/24 History 62.5 mcg-vilant 25 mcg inhalat.powder (Trelegy Ellipta) midodrine 2.5 mg tablet 2.5 mg PO TID #90 tabs 07/30/24 09/12/24 Rx allopurinol 300 mg tablet 300 mg PO DAILY 90 days #90 tabs 08/12/24 09/12/24 Rx azelastine 137 mcg (0.1 %) nasal 137 mcg intranasal DAILY 08/15/24 09/12/24 History spray metoprolol tartrate 50 mg tablet 50 mg PO BID #60 tabs 08/15/24 09/12/24 Rx albuterol sulfate 0.63 mg/3 mL 0.63 mg inhalation QIDP PRN 09/12/24 09/12/24 History solution for nebulization shortness of breath or wheezing bumetanide 0.5 mg tablet 0.5 mg PO DAILYP PRN dyspnea 09/12/24 09/12/24 History dexamethasone 4 mg tablet 4 mg PO DAILY 09/12/24 09/12/24 History empagliflozin 10 mg tablet 10 mg PO DAILY #30 tabs 09/12/24 Rx (Jardiance) levofloxacin 750 mg tablet 750 mg PO DAILY 7 days #7 tabs 09/12/24 Rx New Prescriptions to Start Prescriptions: empagliflozin [Jardiance] Jose Mackey levofloxacin Irma Carrasco Allergies Allergy/AdvReac Type Severity Reaction Status Date / Time No Known Drug Allergies Allergy Unknown Unknown Verified 09/12/24 11:18 (NKDA) allergy reaction Results Labs 09/12/24 11:15 09/12/24 11:15 Labs: Abnormal lab results 09/12/24 09/12/24 Range/Units 11:15 12:15 WBC 3.5 L (4.8-10.8) K/mm3 RBC 3.86 L (4.60-6.20) M/mm3 Hgb 11.8 L (14.1-18.0) g/dL Hct 36.2 L (42.0-52.0) % Plt Count 12 L* (142-424) K/mm3 [place] % (Auto) 15.1 H (1.7-9.3) % Lymph # (Auto) 0.5 L (0.7-4.5) K/mm3 VBG pCO2 69.3 H (35-51) mmol/L VBG pO2 60.9 H (28-40) mmol/L VBG HCO3 36.1 H (23-30) mmol/L VBG Total CO2 38.3 H (23-27) mmol/L VBG O2 Saturation 90.2 H (50-70) % VBG Base Excess 10.3 H (-2.4-2.3) mmol/L Sodium 123 L (136-145) mmol/L Chloride 85 L (98-107) mmol/L Carbon Dioxide 40 H (22.0-30.0) mmol/L Anion Gap 2.7 L (5-15) mEq/L Creatinine 0.60 L (0.66-1.25) mg/dl AST 89 H (17-59) U/L ALT 81 H (12-78) U/L NT-Pro-B Natriuret Pep 1910 H (0-125) pg/mL Total Protein 5.9 L (6.3-8.2) g/dl Albumin 3.4 L (3.5-5.0) g/dl H & H 09/12/24 Range/Units 11:15 Hgb 11.8 L (14.1-18.0) g/dL Hct 36.2 L (42.0-52.0) % Coagulation 09/12/24 Range/Units 11:15 INR 1.02 (0.9-1.1) All other labs normal. Assessment and Plan *Assessment and plan (1) Postobstructive pneumonia: Status: Acute Category: Medical Code(s): J18.9 - Pneumonia, unspecified organism (2) Multifocal pneumonia: Status: Acute Category: Medical Code(s): J18.9 - Pneumonia, unspecified organism (3) Pleural effusion on right: Status: Acute Category: Medical Code(s): J90 - Pleural effusion, not elsewhere classified (4) Acute exacerbation of chronic obstructive pulmonary disease: Status: Acute Category: Medical Code(s): J44.1 - Chronic obstructive pulmonary disease with (acute) exacerbation (5) PAF (paroxysmal atrial fibrillation): Status: Acute Category: Medical Code(s): I48.0 - Paroxysmal atrial fibrillation (6) HFrEF (heart failure with reduced ejection fraction): Status: Acute Category: Medical Code(s): I50.20 - Unspecified systolic (congestive) heart failure (7) Physical deconditioning: Status: Acute Category: Medical Code(s): R53.81 - Other malaise (8) Metastatic malignant neoplasm: Status: Acute Category: Medical Code(s): C79.9 - Secondary malignant neoplasm of unspecified site (9) Malignant neoplasm of lung: Status: Acute Qualifiers: Laterality: unspecified laterality Lung location: overlapping sites Q ualified Code(s): C34.80 - Malignant neoplasm of overlapping sites of unspecified bronchus and lung Category: Medical Code(s): C34.90 - Malignant neoplasm of unspecified part of unspecified bronchus or lung (10) Thrombocytopenia: Status: Acute Category: Medical Code(s): D69.6 - Thrombocytopenia, unspecified Plan 68-year-old male with known metastatic lung cancer. Presented with shortness of breath. Found to have postobstructive pneumonia. Discussed case with ER physician, thoracentesis is contraindicated at this time due to thrombocytopenia and small to moderate size. Recommend treating pneumonia with Levaquin for 7 days and monitoring for improvement. After interactive discussion with patient, he would prefer to go home on antibiotics and be admitted if we were not going to do a procedure at this time. States he would be more comfortable at home if he was going to do just antibiotics. Family at bedside agreeable to plan. Social work consulted hospice nurse who will evaluate patient in the morning. Additionally informed pulmonology that we will discharge patient home on regimen of antibiotics, pulmonology agreed that pleural effusions are likely not the cause of his increased oxygen requirement given their size compared to previous effusions on imaging. Communicated with cardiology, recommend continuing his Jardiance. - Thoracentesis not appropriate at this time given small size and thrombocytopenia. - Will discharge on 7 days of levofloxacin 750 mg daily. - Mini respiratory panel negative. - Patient is on hospice at home, hospice nurse contacted, they will visit him at his home tomorrow. Discharge on 5 L oxygen continuously Thank you for the opportunity to consult on patient.
--- NOTE | 2024-09-12 15:12 | SW/DCPLANNER ---
Patient is currently established w/ Hospice services at home. I have called and updated Swati w/ [facility] that the plan is for this patient to return home today from ED. Swati stated a Hospice nurse would be to see patient tomorrow at home.
--- NOTE | 2024-09-12 15:32 | PC.NURSE ---
rounded on the pt. the pt voices that he does not need anything at this time. call light is within reach of the pt. family member is present at the bedside.
== END 2024-09-12 15:44 | disposition home or self-care (01) ==
PROVIDERS: Internal Medicine Adolescent Medicine; Emergency Provider Emergency Medicine; PCP Family Medicine
DX: J18.9 Pneumonia, unspecified organism (principal); J90 Pleural effusion, not elsewhere classified; J44.1 Chronic obstructive pulmonary disease with (acute) exacerbation; I48.0 Paroxysmal atrial fibrillation; I50.20 Unspecified systolic (congestive) heart failure; R53.81 Other malaise; D69.6 Thrombocytopenia, unspecified; C79.9 Secondary malignant neoplasm of unspecified site; C34.90 Malignant neoplasm of unspecified part of unspecified bronchus or lung; J96.21 Acute and chronic respiratory failure with hypoxia; R53.1 Weakness
CPT/HCPCS: 71275; 80053; 82803; 83735; 83880; 84484; 85025; 85610; 85730; 87040; 87070; 87077; 87205; 87631; 93005; 96361; 96365; 96374; 99291; J2919; J3475; J7120; J7620; Q9967

== ENCOUNTER 2024-09-14 09:59 | Emergency (ER) | payer OTHER, SELFPAY ==
[2024-09-14] VITALS (19 sets, daily range): BP systolic 75–110; BP diastolic 42–64; PULSE 56–80; RESP 11–21; TEMP 36.5–36.7; O2SAT 89–95; BMI 23.8; BMI 26.4
--- NOTE | 2024-09-14 10:05 | ECG_ITS ---
APPROVED REPORT Exam: Resting ECG HR:57 bpm ECG Measurements Heart Rate 57 AXES [place] 145 P 70 QRSd 115 QRS -71 QT 402 T 66 QTc 397 Conclusion SINUS BRADYCARDIA WITH SINUS ARRHYTHMIA INDETERMINATE AXIS MODERATE INTRAVENTRICULAR CONDUCTION DELAY [110+ ms QRS DURATION] Electronically signed by : OLEKSANDR SNOW, 09/14/2024 16:18:24
--- NOTE | 2024-09-14 10:05 | XR_ITS ---
PROCEDURE INFORMATION: Exam: XR Chest Exam date and time: 09/14/2024 10:23 AM Age: 68 years old Clinical indication: Shortness of breath; Additional info: SOA TECHNIQUE: Imaging protocol: Radiologic exam of the chest. Views: 1 view. COMPARISON: CT ANGIO CHEST PE PROTOCOL 09/12/2024 1:02 PM FINDINGS: Lungs: Left basilar mixed ground-glass, reticulonodular, and consolidative opacities. eterogeneous opacities in the bilateral mid lungs. Mild interstitial and vascular prominence. Pleural spaces: Moderate right pleural effusion with mild overlying passive atelectasis. Small left pleural effusion. Heart/Mediastinum: Cardiomegaly. Mediastinal contours unremarkable. Bones/joints: Unremarkable. Other findings: . IMPRESSION: 1. Left basilar mixed ground-glass, reticulonodular, and consolidative opacities. eterogeneous opacities in the bilateral mid lungs. Concerning for infectious (including atypical) versus inflammatory etiology. Recommend imaging follow-up to resolution. 2. There are findings suggestive of mild interstitial pulmonary edema. Possible CHF. 3. Moderate right pleural effusion with mild overlying passive atelectasis. Small left pleural effusion.
--- NOTE | 2024-09-14 10:08 | ED_ITS ---
Discharge Plan Disposition Patient Disposition: Hospice - Home Condition: Good Prescriptions Prescriptions: No Action alfuzosin 10 mg tablet extended release 24 hr 10 mg PO DAILY 90 Days Qty: 90 1RF Rx Instructions: administer after the same meal each day azelastine 137 mcg (0.1 %) spray,non-aerosol 137 mcg intranasal DAILY metoprolol tartrate 50 mg tablet 50 mg PO BID Qty: 60 5RF levothyroxine 150 mcg tablet 150 mcg PO DAILY Qty: 90 1RF potassium chloride 20 mEq tablet extended release 20 meq PO DAILY Qty: 90 3RF lovastatin 40 mg tablet 40 mg PO HS 30 Days Qty: 30 2RF midodrine 2.5 mg tablet 2.5 mg PO TID Qty: 90 1RF allopurinol 300 mg tablet 300 mg PO DAILY 90 Days Qty: 90 0RF dexamethasone 4 mg tablet 4 mg PO DAILY albuterol sulfate 0.63 mg/3 mL solution for nebulization 0.63 mg inhalation QIDP PRN (Reason: shortness of breath or wheezing) bumetanide 0.5 mg tablet 0.5 mg PO DAILYP PRN (Reason: dyspnea) levofloxacin 750 mg tablet 750 mg PO DAILY 7 Days Qty: 7 0RF Jardiance 10 mg tablet 10 mg PO DAILY Qty: 30 3RF Trelegy Ellipta 100-62.5-25 mcg Blister With Device 1 inh INHALATION DAILY docusate sodium 100 mg Capsule 100 mg PO DAILY aspirin 81 mg Tablet,Chewable 81 mg PO DAILY Referrals Follow up/Referrals: Miles Márquez MD [Primary Care Provider] - See instructions Activity Restrictions/Add. Instructions Additional Instructions/Restrictions: You were evaluated in the emergency department today. At this time, I feel that you likely had a heart failure exacerbation related to your atrial fibrillation. You are now back in normal sinus rhythm. Please continue taking your medications at home as prescribed. Follow-up closely with your hospice team as well as with your primary care provider. Continue taking your antibiotics recently prescribed to you. Return to the emergency department for new or worsening symptoms. Clinical Impressions Clinical Impression: CHF exacerbation, Atrial fibrillation with RVR, Pleural effusion, Pneumonia, Malignant neoplasm of unspecified part of unspecified bronchus or lung, Chronic respiratory failure Instructions Patient Instructions: DI for Shortness of Breath Print Language Print Language: Kinyarwanda Discharge ED Provider: Irma Carrasco General Chief Complaint: Shortness of Breath/Dyspnea Stated Complaint: Breathing Problems Time Seen by Provider: 09/14/24 09:59 History of Present Illness HPI narrative: This patient is a 68-year-old male with a history of metastatic lung cancer on hospice for his cancer, COPD now on 5 L nasal cannula (recent eval 2 days ago), paroxysmal atrial fibrillation, hypertension, hyperlipidemia, CAD, CHF presenting to the emergency department for evaluation with concern for shortness of breath. According to the patient, he was actually doing better after going home until around 2:00 this morning when he suddenly started feeling short of breath. He said his heart rate jumped up to 130. EMS was called this morning for shortness of breath, and they noted that the patient's heart rate was in the 150s to 200s in A-fib on the monitor whenever they picked him up. He was otherwise stable with normal O2 saturation on his new 5 L nasal cannula. They administered 150 mg of amiodarone as well as IV Zofran for nausea. He converted to normal sinus rhythm. He states he is currently feeling a lot better Related Data Home Medications ?Medication ?Instructions ?Recorded ?Confirmed aspirin 81 mg chewable tablet 81 mg PO DAILY 07/28/24 09/14/24 docusate sodium 100 mg capsule 100 mg PO DAILY 07/28/24 09/14/24 fluticasone fur. 100 mcg-umeclid 1 inh inhalation DAILY 07/28/24 09/14/24 62.5 mcg-vilant 25 mcg inhalat.powder (Trelegy Ellipta) azelastine 137 mcg (0.1 %) nasal 137 mcg intranasal DAILY 08/15/24 09/14/24 spray albuterol sulfate 0.63 mg/3 mL 0.63 mg inhalation QIDP PRN 09/12/24 09/14/24 solution for nebulization shortness of breath or wheezing bumetanide 0.5 mg tablet 0.5 mg PO DAILYP PRN dyspnea 09/12/24 09/14/24 dexamethasone 4 mg tablet 4 mg PO DAILY 09/12/24 09/14/24 Previous Rx's ?Medication ?Instructions ?Recorded alfuzosin 10 mg tablet,extended 10 mg PO DAILY 90 days #90 tabs 12/25/23 release 24 hr levothyroxine 150 mcg tablet 150 mcg PO DAILY #90 tabs 06/18/24 potassium chloride 20 mEq 20 meq PO DAILY #90 tabs 06/18/24 tablet,extended release lovastatin 40 mg tablet 40 mg PO HS 30 days #30 tabs 06/24/24 midodrine 2.5 mg tablet 2.5 mg PO TID #90 tabs 07/30/24 allopurinol 300 mg tablet 300 mg PO DAILY 90 days #90 tabs 08/12/24 metoprolol tartrate 50 mg tablet 50 mg PO BID #60 tabs 08/15/24 empagliflozin 10 mg tablet 10 mg PO DAILY #30 tabs 09/12/24 (Jardiance) levofloxacin 750 mg tablet 750 mg PO DAILY 7 days #7 tabs 09/12/24 Allergies Allergy/AdvReac Type Severity Reaction Status Date / Time No Known Drug Allergies Allergy Unknown Unknown Verified 09/12/24 11:18 (NKDA) allergy reaction [facility] Disclaimer: The information contained in this section may have been updated after the patient was seen, as this information can be updated by other users. Medical History PAF (paroxysmal atrial fibrillation) HFrEF (heart failure with reduced ejection fraction) Screening for colon cancer Chronic constipation Acute on chronic respiratory failure with hypoxemia CHF exacerbation Impotence Urine retention Constipation Encopresis Constipation Acute urinary retention Shortness of breath Left breast abscess Dysphagia Constipation Left breast mass History of ASCVD Community acquired pneumonia Acute and chronic respiratory failure with hypoxia Radiation esophagitis Esophageal stricture Pleural effusion on right Acute respiratory failure with hypoxia Acute hypercapnic respiratory failure Acute exacerbation of chronic obstructive pulmonary disease Acute hypoxic on chronic hypercapnic respiratory failure COPD (chronic obstructive pulmonary disease) Olecranon bursitis of right elbow Elbow mass Swelling Hilar lymphadenopathy Allergic rhinitis History of lung or bronchial cancer Mediastinal lymphadenopathy History of esophageal dilatation Sinusitis Gynecomastia Discharge from left nipple COPD (chronic obstructive pulmonary disease) Dyspnea on exertion Malignant neoplasm of unspecified part of unspecified bronchus or lung Pulmonary emphysema Smoking greater than 30 pack years Lung nodule Tobacco abuse counseling HAP (hospital-acquired pneumonia) Influenza A Acute on chronic respiratory failure with hypoxia and hypercapnia Urinary tract infection Tobacco abuse AAA (abdominal aortic aneurysm) Melanoma Thyroid disease Sinus problem History of radiation therapy History of chemotherapy Cataract Myocardial infarction Lung disease DVT (deep venous thrombosis) Cancer Atherosclerotic heart disease Hypotension HLD (hyperlipidemia) Abnormal EKG CAD (coronary artery disease) CHF (congestive heart failure) Gout Tobacco abuse disorder Hypertension Hypothyroidism COPD exacerbation Surgical History H/O melanoma excision History of heart artery stent History of cardiac cath History of colonoscopy Family History Other AAA (abdominal aortic aneurysm) Coronary artery disease Gout Heart attack Hypertension Social History Smoking Status: Former smoker tobacco type: cigarettes packs per day: 1 smoking status stop date: 2023 alcohol intake: former substance use type: denies use 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ional status: retired and disabled Travel in the last 8 weeks: None household members: spouse housing: house lives independently: No marital status: education level: high school service: No penitentiary: No caffeine: No special honey needs: No agree to transfusion: No do you feel safe at home: Yes victim of physical abuse: No victim of emotional abuse: No victim of sexual abuse: No would you like helpful sources: No Have you lived/traveled outside [place] in past 30 days?: No Contact w/someone who lives/traveled outside [place] past 30 days?: No Exposure to someone with infectious disease in past 14 days?: No Do you have a fever (greater than 100.4 F or 38 C)?: No Have you tested positive for COVID-19: No Exposed to someone with COVID-19 in past 14 days?: No Do you have a sore throat?: No Do you have a cough?: No Do you have any weakness?: No Do you have any diarrhea?: No Are you experiencing any unusual bleeding?: No Do you have any muscle aches/pain?: No Do you have any abdominal pain?: No Are you experiencing loss of taste or smell?: No Other Medical History Have you received the Flu Vaccine for this season: No Have you received the Pneumonia Vaccine: Yes ROS Obtained: Yes All systems reviewed & no additional complaints except as documented Physical Exam General General appearance: alert Comment: Chronically ill-appearing Head Head exam: atraumatic and normocephalic Eye Eye exam: Present normal appearance, PERRL and EOMI ENT ENT exam: Present normal exam, normal oropharynx, mucous membranes moist and normal external ear exam Neck Neck exam: Present normal inspection, full ROM and trachea midline; Absent tenderness Chest Chest inspection: Present normal inspection and symmetric chest wall rise; Absent tenderness Respiratory Respiratory exam: Present other (Diminished breath sounds, especially in the right lung); Absent respiratory distress, wheezes, stridor or accessory muscle use Cardiovascular Cardiovascular exam: Present normal rhythm and bradycardia Abdominal Exam Abdominal exam: Present soft; Absent distention, tenderness or guarding Extremities Exam Extremities exam: Present full ROM, normal capillary refill and edema (Mild bilateral lower extremity edema); Absent tenderness Back Exam Back exam: Present normal inspection and full ROM; Absent tenderness Neurological Exam Neurological exam: Present alert, oriented X3 and CN II-XII intact; Absent motor sensory deficit Psychiatric Psychiatric exam: Present normal affect and normal mood Skin Skin exam: Present pallor HEART Score HEART Score HEART Score assessment performed?: Yes History (anamnesis): Slightly suspicious ECG: Non-specific disturbance Age: >65 years Risk factors: Atherosclerosis history Troponin: </= normal limit HEART Score: 5 Procedures Limited Ultrasound Findings:: Limited cardiac ultrasound Indication: Shortness of breath Identified cardiac views: [-Cardiac parasternal long axis] [-Cardiac parasternal short axis] [-Cardiac subxiphoid] Findings: [-Cardiac activity present -Gross wall motion normal -Pericardial effusion absent -Right heart strain absent] Impression: -[From above] Images were saved to permanent archive The study was technically adequate CPT: 65113 This study was performed by me, and I personally interpreted all images/videos. Based on my clinical judgement, these images were adequate and did not necessitate further imaging. Critical Care Critical Care Time Critical Care Time: No Medical Decision Making Lanre Inquiry Pt receiving controlled substance: No Vital Signs Vital Signs: 09/14/24 10:02 09/14/24 10:08 09/14/24 10:09 Temperature Temperature Source Pulse Rate 60 63 Pulse Rate [Left Radial] Respiratory Rate 17 17 Blood Pressure 87/58 L 85/56 L 84/55 L Blood Pressure [Right Arm] Blood Pressure Mean [Right Arm] Blood Pressure Source Blood Pressure Source [Right Arm] Blood Pressure Position [Right Arm] 02 Sat by Pulse Oximetry 90 L 91 L Oxygen Delivery Method Nasal Cannula Nasal Cannula Nasal Cannula Oxygen Flow Rate (LPM) 5 5 5 09/14/24 10:15 09/14/24 10:20 09/14/24 10:20 Temperature 97.7 F Temperature Source Oral Pulse Rate 58 L Pulse Rate [Left Radial] 57 L Respiratory Rate 18 12 14 Blood Pressure 79/55 L 84/53 L Blood Pressure [Right Arm] 84/53 L Blood Pressure Mean [Right Arm] 63 Blood Pressure Source Blood Pressure Source [Right Arm] Automatic Cuff Blood Pressure Position [Right Arm] Sitting 02 Sat by Pulse Oximetry 92 L 91 L Oxygen Delivery Method Nasal Cannula Nasal Cannula Nasal Cannula Oxygen Flow Rate (LPM) 5 5 5 09/14/24 10:30 09/14/24 10:40 09/14/24 10:50 Temperature Temperature Source Pulse Rate 57 L 56 L 59 L Pulse Rate [Left Radial] Respiratory Rate 15 12 18 Blood Pressure 78/53 L 75/47 L 85/42 L Blood Pressure [Right Arm] Blood Pressure Mean [Right Arm] Blood Pressure Source Blood Pressure Source [Right Arm] Blood Pressure Position [Right Arm] 02 Sat by Pulse Oximetry 92 L 95 91 L Oxygen Delivery Method Nasal Cannula Nasal Cannula Nasal Cannula Oxygen Flow Rate (LPM) 5 5 09/14/24 11:00 09/14/24 11:00 09/14/24 11:10 Temperature Temperature Source Pulse Rate 58 L 57 L Pulse Rate [Left Radial] Respiratory Rate 16 11 L Blood Pressure 84/46 L 82/50 L 79/46 L Blood Pressure [Right Arm] Blood Pressure Mean [Right Arm] Blood Pressure Source Manual Cuff/ Doppler Blood Pressure Source [Right Arm] Blood Pressure Position [Right Arm] 02 Sat by Pulse Oximetry 92 L 93 L Oxygen Delivery Method Nasal Cannula Nasal Cannula Oxygen Flow Rate (LPM) 5 5 09/14/24 11:18 09/14/24 11:20 09/14/24 11:30 Temperature Temperature Source Pulse Rate 60 58 L 62 Pulse Rate [Left Radial] Respiratory Rate 17 16 16 Blood Pressure 89/53 L 89/57 L 95/56 L Blood Pressure [Right Arm] Blood Pressure Mean [Right Arm] Blood Pressure Source Blood Pressure Source [Right Arm] Blood Pressure Position [Right Arm] 02 Sat by Pulse Oximetry 94 L 94 L 93 L Oxygen Delivery Method Nasal Cannula Nasal Cannula Nasal Cannula Oxygen Flow Rate (LPM) 5 5 5 09/14/24 11:40 09/14/24 11:50 09/14/24 12:00 Temperature Temperature Source Pulse Rate 61 60 65 Pulse Rate [Left Radial] Respiratory Rate 19 14 20 Blood Pressure 100/57 L 94/59 L 107/64 L Blood Pressure [Right Arm] Blood Pressure Mean [Right Arm] Blood Pressure Source Blood Pressure Source [Right Arm] Blood Pressure Position [Right Arm] 02 Sat by Pulse Oximetry 92 L 92 L 90 L Oxygen Delivery Method Nasal Cannula Nasal Cannula Nasal Cannula Oxygen Flow Rate (LPM) 5 5 5 09/14/24 12:11 09/14/24 12:20 09/14/24 12:42 Temperature 98.0 F Temperature Source Pulse Rate 65 71 80 Pulse Rate [Left Radial] Respiratory Rate 21 20 19 Blood Pressure 110/58 L 92/54 L 96/55 L Blood Pressure [Right Arm] Blood Pressure Mean [Right Arm] Blood Pressure Source Blood Pressure Source [Right Arm] Blood Pressure Position [Right Arm] 02 Sat by Pulse Oximetry 89 L 89 L Oxygen Delivery Method Nasal Cannula Nasal Cannula Oxygen Flow Rate (LPM) 5 5 Lab Data Labs: Lab Results 09/14/24 10:15: WBC 4.4 L D, RBC 3.65 L, Hgb 11.2 L, Hct 34.5 L, MCV 94.5 H, MCH 30.7, MCHC 32.5, RDW 14.6, Plt Count 11 L*, MPV 9.4, Neut % (Auto) 68.0, Lymph % (Auto) 16.0, Mcdonough % (Auto) 14.4 H, Eos % (Auto) 0.5, Baso % (Auto) 0.2, Neut # (Auto) 3.0, Lymph # (Auto) 0.7, Mcdonough # (Auto) 0.6, Eos # (Auto) 0.0, Baso # (Auto) 0.0, Sodium 128 L, Potassium 4.5, Chloride 89 L, Carbon Dioxide 39 H, A nion Gap 4.5 L, BUN 27 H D, Creatinine 0.60 L, Estimated Creat Clear 77, Estimated GFR 133, Est GFR ( Amer) 161, Glucose 88, Calcium 8.6, Magnesium 1.6, Total Bilirubin 0.8, AST 91 H, ALT 68, Alkaline Phosphatase 58, Troponin I < 0.01, NT-Pro-B Natriuret Pep 3420 H, Total Protein 5.6 L, Albumin 3.2 L, Globulin 2.4, Albumin/Globulin Ratio 1.3 09/14/24 10:15 09/14/24 10:15 Response Orders (Tests/Meds): ED MEDICATIONS Discontinued Medications Generic Name Dose Route Start Last Admin Trade Name Tyrese PRN Reason Stop Dose Admin Sodium Chloride 500 mls @ 999 mls/hr 09/14/24 10:48 09/14/24 10:51 Sod Chlor 0.9% 1000ml Bag IV 09/14/24 11:18 999 mls/hr .Q31M ONE Administration Midodrine 2.5 mg 09/14/24 11:35 09/14/24 11:52 Midodrine Hcl 5 Mg Tablet PO 09/14/24 11:36 2.5 mg ONCE ONE Administration Ondansetron HCl 4 mg 09/14/24 11:27 09/14/24 11:29 Ondansetron 4mg/2ml Vial IV 09/14/24 11:28 4 mg ONCE ONE Administration ORDERS Category Date Time Status CXR --portable [XR chest portable] Stat Exams 09/14/24 10:05 Completed POCUS Point of Care (ER Only) Stat Exams 09/14/24 11:28 Completed BNP [NT Pro Brain Natriuretic Pep.] Stat Lab 09/14/24 10:15 Completed CBC w/Auto Diff [Complete Blood Count Auto Diff] Stat Lab 09/14/24 10:15 Completed CMP [Comprehensive Metabolic Panel] Stat Lab 09/14/24 10:15 Completed MAG [Magnesium] Stat Lab 09/14/24 10:15 Completed Trop I [Troponin I] Stat Lab 09/14/24 10:15 Completed ECG Data Tracing #1: Attestation: I reviewed this ECG and interpreted as documented below: ECG Narrative: Sinus bradycardia with sinus arrhythmia with a ventricular rate of [address] changes concerning for ischemia. Intraventricular conduction delay ECG initial impression date: 09/14/24 ECG initial impression time: 10:07 MDM Narrative Medical Decision Narrative: In summary, this patient is a 68-year-old male presenting to the Emergency Department for evaluation of shortness of breath. Differential diagnoses considered include but are not limited to CHF exacerbation, COPD exacerbation, acute on chronic respiratory failure, worsening pleural effusion, worsening malignancy burden, PE, A-fib with RVR. Ruling out the most morbid conditions drove assessment. It should be noted patient's history includes lung cancer with respiratory failure, CHF, COPD, hypertension, patient's blood atrial fibrillation which are not at goal therapy. This complicates all aspects of care by increasing patient's risk for morbidity. I reviewed patient's past medical records and noted evaluation 2 days ago. I diagnosed the patient with a postobstructive pneumonia and he also has recurrent pleural effusion. His platelet count was too low for thoracentesis, so after shared decision-making with patient, pulmonology, [facility] medicine, patient elected to go home on Levaquin.. On exam, the patient is lying in bed in no acute distress. He is in normal sinus rhythm. His pressures are soft with systolics in the 80s after receiving amiodarone and converting to normal sinus rhythm. His O2 saturation is 91 to 92% on his 5 L nasal cannula. Workup included CBC, CMP, troponin, BNP, chest x- ray, EKG. EKG obtained is reassuring without acute ST changes. EMS initiated IV fluid resuscitation with a bolus of IV fluids, which I turned off given his history of heart failure. Afterward, his pressure was a little bit softer with systolics in the 70s. We restarted fluids and pressure improved. I independently interpreted chest x-ray prior to the radiologist read and noted bilateral pleural effusions, not appear to be worse than prior. He does have increased consolidation in the left lung and is already on treatment for postobstructive pneumonia. This is likely due to worsening of his disease.. Please see their read for final interpretation. Labs were obtained that demonstrated pancytopenia which is chronic. Not significantly changed from recent evaluation. On reassessment, patient had great improvement after administration of IV fluids and his home midodrine, which he had not yet taken for low blood pressure issues. His blood pressure was stable, O2 saturation remained normal on his home 5 L nasal cannula, heart rate with sinus rhythm in the 60s. He ate some ice cream without issue. Hospice came and saw him and advised that they will work on support at home, including adding on morphine and Zofran for further symptomatic improvement should he start feeling bad. Family and patient agreeable with this and elect to go home on hospice. He is already on antibiotics for his postobstructive pneumonia, which he will continue at home. Patient was discharged with good hospice support at home and strict return precautions should he wish to seek repeat ED evaluation.
--- NOTE | 2024-09-14 10:21 | PC.NURSE ---
called Roslyn with hospice for pt, they will be up to plan further care with MD for pt.
--- NOTE | 2024-09-14 10:32 | PC.NURSE ---
Pt woke up and abruptly attempted to get up out of bed. Pt was stopped by myself, Carolyne Mendoza, and Shi Ruiz. Pt assisted back into bed and we made sure everything was still connected and pt was comfortable. Call light placed back in reach of pt and he was advised if he needs help to push his call light. Pt went back to sleep
--- NOTE | 2024-09-14 10:43 | PC.NURSE ---
Ava RODAS from hospice at
[2024-09-14 10:51] LABS: Alanine Aminotransferase 68 U/L (12-78); Albumin Level 3.2 g/dl (3.5-5.0); Albumin/Globulin Ratio 1.3 (1.1-1.8); Alkaline Phosphatase 58 U/L (38-126); Aspartate Amino Transferase 91 U/L (17-59); Basophils % 0.2 % (0.1-2.0); Bilirubin,Total 0.8 mg/dl (0.2-1.3); Blood Urea Nitrogen 27 mg/dl (9-20); Calcium 8.6 mg/dl (8.4-10.2); Chloride 89 mmol/L (98-107); Creatinine Clearance Estimated 77 mL/min (50-200); Eosinophils % 0.5 % (0.1-12.0); Estimated Glomerular Filt Rate 133 ml/min (>60); GFR (African American) 161 ML/MIN (>60); Globulin 2.4 g/dL (1.3-3.2); Glucose 88 mg/dl (74-100); Hematocrit 34.5 % (42.0-52.0); Hemoglobin 11.2 g/dL (14.1-18.0); Lymphocytes # 0.7 K/mm3 (0.7-4.5); Magnesium 1.6 mg/dl (1.6-2.3); Mean Corpuscular HGB Conc 32.5 g/dL (31.8-35.4); Mean Corpuscular Hemoglobin 30.7 pg (27.0-31.2); Mean Corpuscular Volume 94.5 fl (80-94); Monocytes # 0.6 K/mm3 (0.1-1.0); Monocytes % 14.4 % (1.7-9.3); Potassium 4.5 mmoL/L (3.5-5.1); Red Blood Count 3.65 M/mm3 (4.60-6.20); Red Cell Distribution Width 14.6 % (11.5-17.5); Sodium 128 mmol/L (136-145); Total Protein,Serum 5.6 g/dl (6.3-8.2); White Blood Count 4.4 K/mm3 (4.8-10.8)
[2024-09-14] MEDS: 0.9 % SODIUM CHLORIDE 1000ML 500 ML 999 ML IV (10:51)
[2024-09-14 11:02] LABS: NT Pro Brain Natriuretic Pep. 3420 pg/mL (0-125)
[2024-09-14 11:18] LABS: Troponin I < 0.01 ng/ml (0.00-0.034)
[2024-09-14 11:28] LABS: Platelet Count 11 K/mm3 (142-424)
[2024-09-14] MEDS: ONDANSETRON 4MG/2ML VIAL 4 MG IV (11:29)
[2024-09-14 11:31] LABS: Mean Platelet Volume 9.4 fl (7.4-10.4)
[2024-09-14] MEDS: MIDODRINE HCL 5 MG TABLET 2.5 MG PO (11:52)
[2024-09-14 12:23] LABS: Anion Gap 4.5 mEq/L (5-15); Carbon Dioxide 39 mmol/L (22.0-30.0)
== END 2024-09-14 12:43 | disposition hospice, home (50) ==
PROVIDERS: Emergency Provider Emergency Medicine; PCP Family Medicine
DX: I50.9 Heart failure, unspecified (principal); J18.9 Pneumonia, unspecified organism; I48.0 Paroxysmal atrial fibrillation; J91.8 Pleural effusion in other conditions classified elsewhere; C34.90 Malignant neoplasm of unspecified part of unspecified bronchus or lung; J96.10 Chronic respiratory failure, unspecified whether with hypoxia or hypercapnia
CPT/HCPCS: 71045; 80053; 83735; 83880; 84484; 85025; 93005; 96374; 99285; J2405; J7030

== ENCOUNTER 2024-09-14 13:11 | Inpatient (IN) | payer OTHER, SELFPAY ==
[2024-09-14] VITALS (14 sets, daily range): BP systolic 57–131; BP diastolic 36–115; PULSE 52–100; RESP 13–24; TEMP 36.1–37.2; O2SAT 76–99; BMI 26.6
--- NOTE | 2024-09-14 13:08 | ECG_ITS ---
APPROVED REPORT Exam: Resting ECG HR:95 bpm ECG Measurements Heart Rate 95 AXES QRSd 166 QRS 98 QT 320 T 0 QTc 372 Conclusion Sinus rhythm with a ventricular rate of [address] changes concerning for subendocardial injury in the setting of cardiac arrest and chest compressions Electronically signed by : OLEKSANDR SNOW, 09/14/2024 16:17:54
--- NOTE | 2024-09-14 13:15 | XR_ITS ---
PROCEDURE INFORMATION: Exam: XR Chest Exam date and time: 09/14/2024 1:09 PM Age: 68 years old Clinical indication: Device placement; Ett placement (vent status); Additional info: Rosc. Intubated TECHNIQUE: Imaging protocol: Radiologic exam of the chest. Views: 1 view. COMPARISON: CR XR CHEST PORTABLE 09/14/2024 10:23 AM FINDINGS: Tubes, catheters and devices: Tip of the endotracheal tube projects over the midtrachea. Tip of the enteric tube passes below the diaphragm, not captured on this study. ICU monitoring device projects over the right upper lobe. Defibrillator pads project over the central lung and left lower lobe. Lungs: Lung aeration has significantly improved in the left mid/lower lung. Residual diffuse heterogeneous opacities bilaterally. Pleural spaces: No pneumothorax. Small bilateral pleural effusions. Heart/Mediastinum: Unremarkable. No cardiomegaly. Bones/joints: Unremarkable. IMPRESSION: Lung aeration has significantly improved in the left mid/lower lung. Residual diffuse heterogeneous opacities bilaterally.
--- NOTE | 2024-09-14 13:20 | PC.NURSE ---
Biju Mcmullen with EMS and myself were called out to ER entry to help pt out of car. When we arrived to pt he was unresponsive in passenger seat of the vehicle. Pt was placed in wheelchair and rolled to room 3 [place]. No pulses present and CPR initiated at 1258. 1300- CPR paused. No pulse. Asystole on monitor. CPR restarted. 1301- Pt intubated by MD Danilo with 7.5 ETT, 24 at gum. Verified with CO2 and auscultation. 1302- CPR paused. No pulse present. Asystole on monitor. CPR restarted. IV left AC established at this time. 1302- 1mg Epi given 1304- CPR paused. Pulse present. Sinus tach on monitor. ROSC 1308- EKG obtained. Reviewed by MD Danilo at this time. Vitals at 1310- HR-115 BP- 124/70 manual right arm O2- 94% ambu bag
[2024-09-14 14:14] LABS: ABG Base Excess 4.6 mmol/L (-2.4-2.3); ABG HCO3 29.6 mmhg (22.0-26.0); ABG Oxygen Saturation 98 % (90-100); ABG PH 7.39 mmol/L (7.35-7.45); ABG TCO2 31.2 mmhg (23-27)
[2024-09-14 14:16] LABS: Oxygen 80% %
[2024-09-14 14:17] LABS: ABG PCO2 50.4 mmhg (35.0-45.0); Allen's Test Patient Unable; PEEP 5; Source Right Radial; Tidal Volume 400; Vent Rate 22
--- NOTE | 2024-09-14 14:20 | ED_ITS ---
Discharge Plan Disposition Patient Disposition: Admitted Clinical Impressions Clinical Impression: Cardiac arrest, Acute and chronic respiratory failure, Malignant neoplasm of unspecified part of unspecified bronchus or lung, Shock Discharge ED Provider: Kong Llamas Adult HPI <Irma Carrasco, DO - Last Filed: 09/14/24 17:40> General Stated complaint: CARDIAC ARREST Time Seen by Provider: 09/14/24 13:15 History of Present Illness HPI narrative: This patient is a 68-year-old male with a history of metastatic lung cancer on hospice for his cancer, COPD now on 5 L nasal cannula (recent eval 2 days ago), paroxysmal atrial fibrillation, hypertension, hyperlipidemia, CAD, CHF presented to the emergency department as cardiac arrest. Patient's daughter is with him and helps provide history. His and son are running in just behind the daughter. I evaluated the patient this morning for shortness of breath. He was in A-fib with RVR but converted after amiodarone by EMS. He felt a lot better with stable workup here, and vitals were reassuring. He seemed to be at his baseline. He ate and drank, hospice came and he spoke with them. They prescribed him home medications to help make him more comfortable. Given the patient was stable and has good home hospice support, shared decision-making was had with the family and patient was discharged to family's care with home hospice. He stood and got himself into the car. They report that in the car, his oxygen tank stopped working and he was not getting enough oxygen. They came in to ask us if we could help, at which point we went up to the vehicle and noted that the patient was not breathing and had no pulse. Daughter, son, and were with him. Related Data Home Medications ?Medication ?Instructions ?Recorded ?Confirmed aspirin 81 mg chewable tablet 81 mg PO DAILY 07/28/24 09/14/24 docusate sodium 100 mg capsule 100 mg PO DAILY 07/28/24 09/14/24 fluticasone fur. 100 mcg-umeclid 1 inh inhalation DAILY 07/28/24 09/14/24 62.5 mcg-vilant 25 mcg inhalat.powder (Trelegy Ellipta) azelastine 137 mcg (0.1 %) nasal 137 mcg intranasal DAILY 08/15/24 09/14/24 spray albuterol sulfate 0.63 mg/3 mL 0.63 mg inhalation QIDP PRN 09/12/24 09/14/24 solution for nebulization shortness of breath or wheezing bumetanide 0.5 mg tablet 0.5 mg PO DAILYP PRN dyspnea 09/12/24 09/14/24 dexamethasone 4 mg tablet 4 mg PO DAILY 09/12/24 09/14/24 Previous Rx's ?Medication ?Instructions ?Recorded alfuzosin 10 mg tablet,extended 10 mg PO DAILY 90 days #90 tabs 12/25/23 release 24 hr levothyroxine 150 mcg tablet 150 mcg PO DAILY #90 tabs 06/18/24 potassium chloride 20 mEq 20 meq PO DAILY #90 tabs 06/18/24 tablet,extended release lovastatin 40 mg tablet 40 mg PO HS 30 days #30 tabs 06/24/24 midodrine 2.5 mg tablet 2.5 mg PO TID #90 tabs 07/30/24 allopurinol 300 mg tablet 300 mg PO DAILY 90 days #90 tabs 08/12/24 metoprolol tartrate 50 mg tablet 50 mg PO BID #60 tabs 08/15/24 empagliflozin 10 mg tablet 10 mg PO DAILY #30 tabs 09/12/24 (Jardiance) levofloxacin 750 mg tablet 750 mg PO DAILY 7 days #7 tabs 09/12/24 Allergies Allergy/AdvReac Type Severity Reaction Status Date / Time No Known Drug Allergies Allergy Unknown Unknown Verified 09/12/24 11:18 (NKDA) allergy reaction [facility] <Irma Carrasco DO - Last Filed: 09/14/24 17:40> [facility] Disclaimer: The information contained in this section may have been updated after the patient was seen, as this information can be updated by other users. Medical History PAF (paroxysmal atrial fibrillation) HFrEF (heart failure with reduced ejection fraction) Screening for colon cancer Chronic constipation Acute on chronic respiratory failure with hypoxemia CHF exacerbation Impotence Urine retention Constipation Encopresis Constipation Acute urinary retention Shortness of breath Left breast abscess Dysphagia Constipation Left breast mass History of ASCVD Community acquired pneumonia Acute and chronic respiratory failure with hypoxia Radiation esophagitis Esophageal stricture Pleural effusion on right Acute respiratory failure with hypoxia Acute hypercapnic respiratory failure Acute exacerbation of chronic obstructive pulmonary disease Acute hypoxic on chronic hypercapnic respiratory failure COPD (chronic obstructive pulmonary disease) Olecranon bursitis of right elbow Elbow mass Swelling Hilar lymphadenopathy Allergic rhinitis History of lung or bronchial cancer Mediastinal lymphadenopathy History of esophageal dilatation Sinusitis Gynecomastia Discharge from left nipple COPD (chronic obstructive pulmonary disease) Dyspnea on exertion Malignant neoplasm of unspecified part of unspecified bronchus or lung Pulmonary emphysema Smoking greater than 30 pack years Lung nodule Tobacco abuse counseling HAP (hospital-acquired pneumonia) Influenza A Acute on chronic respiratory failure with hypoxia and hypercapnia Urinary tract infection Tobacco abuse AAA (abdominal aortic aneurysm) Melanoma Thyroid disease Sinus problem History of radiation therapy History of chemotherapy Cataract Myocardial infarction Lung disease DVT (deep venous thrombosis) Cancer Atherosclerotic heart disease Hypotension HLD (hyperlipidemia) Abnormal EKG CAD (coronary artery disease) CHF (congestive heart failure) Gout Tobacco abuse disorder Hypertension Hypothyroidism COPD exacerbation Surgical History H/O melanoma excision History of heart artery stent History of cardiac cath History of colonoscopy Family History Other AAA (abdominal aortic aneurysm) Coronary artery disease Gout Heart attack Hypertension Social History (Updated 09/14/24 @ 17:22 by Michelle Redd RN) Smoking Status: Former smoker tobacco type: cigarettes packs per day: 1 smoking status stop date: 2023 alcohol intake: former substance use type: denies use 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ional status: retired and disabled Travel in the last 8 weeks: None household members: spouse housing: house lives independently: No marital status: education level: high school service: No chcf: No caffeine: No special honey needs: No agree to transfusion: No do you feel safe at home: Yes victim of physical abuse: No victim of emotional abuse: No victim of sexual abuse: No would you like helpful sources: No Have you lived/traveled outside [place] in past 30 days?: No Contact w/someone who lives/traveled outside US past 30 days?: No Exposure to someone with infectious disease in past 14 days?: No Do you have a fever (greater than 100.4 F or 38 C)?: No Have you tested positive for COVID-19: No Exposed to someone with COVID-19 in past 14 days?: No Do you have a sore throat?: No Do you have a cough?: No Do you have any weakness?: No Are you experiencing any nausea/vomitting?: No Do you have any diarrhea?: No Are you experiencing any unusual bleeding?: No Do you have any muscle aches/pain?: No Do you have any abdominal pain?: No Are you experiencing loss of taste or smell?: No Other Medical History Have you received the Flu Vaccine for this season: No Have you received the Pneumonia Vaccine: Yes <Irma Carrasco DO - Last Filed: 09/14/24 17:40> ROS Obtained: Yes unobtainable due to mental status Physical Exam <Irma Carrasco, DO - Last Filed: 09/14/24 17:40> General General appearance: in distress Comment: Julian, pale, pulseless, apneic Head Head exam: atraumatic and normocephalic Respiratory Respiratory exam: Present other (no spontaneous respirations, absent breath sounds) Cardiovascular Cardiovascular exam: Present other (pulseless, asystole on monitor initially) Abdominal Exam Abdominal exam: Present soft; Absent distention, tenderness or guarding Extremities Exam Extremities exam: Present normal inspection Back Exam Back exam: Present normal inspection Neurological Exam Neurological exam: Present other (unresponsive, GCS 3) Skin Skin exam: Present pallor and mottled Medical Decision Making <Irma Carrasco, DO - Last Filed: 09/14/24 17:40> Medical Records Screening: Per USPSTF and CDC recommendations, given the prevalence of disease in our region, it is our hospital?s policy to screen for HIV and viral Hepatitis for all patients aged 18 and over and those with ongoing risk factors. Lanre Inquiry Pt receiving controlled substance: No Vital Signs: 09/14/24 13:30 09/14/24 13:31 09/14/24 13:43 Temperature Pulse Rate 67 Respiratory Rate 18 Blood Pressure 131/115 H Blood Pressure Mean 02 Sat by Pulse Oximetry 94 L 92 L Oxygen Delivery Method Mechanical Ventilation Oxygen Flow Rate (LPM) 15 Fraction of Inspired Oxygen 80 09/14/24 14:01 09/14/24 14:02 09/14/24 14:09 Temperature 97.0 F L 97.2 F L Pulse Rate 53 L 54 L 54 L Respiratory Rate 22 22 Blood Pressure 60/36 L 57/38 L 60/38 L Blood Pressure Mean 42 02 Sat by Pulse Oximetry 92 L 93 L 93 L Oxygen Delivery Method Mechanical Ventilation Mechanical Ventilation Mechanical Ventilation Oxygen Flow Rate (LPM) Fraction of Inspired Oxygen 09/14/24 14:30 09/14/24 15:00 09/14/24 15:30 Temperature 97.7 F 97.7 F 98.1 F Pulse Rate 53 L 52 L 53 L Respiratory Rate 22 23 19 Blood Pressure 69/41 L 69/44 L 80/47 L Blood Pressure Mean 02 Sat by Pulse Oximetry 95 98 99 Oxygen Delivery Method Mechanical Ventilation Mechanical Ventilation Mechanical Ventilation Oxygen Flow Rate (LPM) Fraction of Inspired Oxygen 09/14/24 16:00 09/14/24 16:30 09/14/24 17:00 Temperature 98.6 F 98.6 F 98.8 F Pulse Rate 77 100 H 89 Respiratory Rate 24 17 14 Blood Pressure 87/55 L 91/51 L 89/46 L Blood Pressure Mean 02 Sat by Pulse Oximetry 92 L 76 L 81 L Oxygen Delivery Method Mechanical Ventilation Nasal Cannula Nasal Cannula Oxygen Flow Rate (LPM) Fraction of Inspired Oxygen 09/14/24 17:30 Temperature 98.8 F Pulse Rate 80 Respiratory Rate 13 Blood Pressure 84/50 L Blood Pressure Mean 02 Sat by Pulse Oximetry 82 L Oxygen Delivery Method Nasal Cannula Oxygen Flow Rate (LPM) Fraction of Inspired Oxygen Lab Data Lab Results 09/14/24 14:06: WBC 5.2, RBC 3.40 L, Hgb 10.3 L, Hct 32.7 L, MCV 96.2 H, MCH 30.3, MCHC 31.5 L, RDW 15.0, Plt Count 8 L* D, MPV 9.4, Neut % (Auto) 66.9, Lymph % (Auto) 16.9, Charlton % (Auto) 12.9 H, Eos % (Auto) 0.4, Baso % (Auto) 0.4, Neut # (Auto) 3.5, Lymph # (Auto) 0.9, Charlton # (Auto) 0.7, Eos # (Auto) 0.0, Baso # (Auto) 0.0, PT 11.6, INR 1.06, APTT 24.7, Sodium 128 L, Potassium 4.6, C hloride 88 L, Carbon Dioxide 39 H, Anion Gap 5.6, BUN 29 H, Creatinine 0.80 D, Estimated Creat Clear 71, Estimated GFR 96, Est GFR ( Amer) 116 D, G lucose 116 H D, Calcium 8.6, Total Bilirubin 0.8, AST 105 H, ALT 77, Alkaline Phosphatase 65, Troponin I 0.03, Total Protein 5.4 L, Albumin 3.2 L, Globulin 2.2, Albumin/Globulin Ratio 1.5 09/14/24 14:12: Specimen Source Right radial, O2 % 80%, ABG pH 7.39, ABG pCO2 50.4 H, ABG pO2 98.0, ABG HCO3 29.6 H, ABG Total CO2 31.2 H, ABG O2 Saturation 98, ABG Base Excess 4.6 H, Collin Test Patient unable, Vent Rate 22, Tidal Volume 400, PEEP 5 09/14/24 14:06 09/14/24 14:06 Orders (Tests/Meds): ED MEDICATIONS Generic Name Dose Route Start Last Admin Trade Name Freq PRN Reason Stop Dose Admin Acetaminophen 650 mg 09/14/24 17:05 Acetaminophen 325mg Tab PO 10/14/24 17:04 Q4HP PRN Fever or Mild Pain (1-3) Midazolam/Sodium Chloride 50 mg in 50 mls @ 1.452 mls/hr 09/14/24 13:15 09/14/24 14:56 Midazolam 50 Mg/50 Ml-0.9%Nacl IV 10/14/24 13:14 0.03 mg/kg/hr .Q24H TITO 2 mls/hr Titration Protocol 0.02 MG/KG/HR Fentanyl Citrate 1,000 mcg/ 100 mls @ 2.5 mls/hr 09/14/24 13:30 09/14/24 14:56 Sodium Chloride IV 10/14/24 13:29 25 mcg/hr .Q24H TITO 2.5 mls/hr Titration Protocol 25 MCG/HR Lorazepam 1 mg 09/14/24 15:30 Lorazepam 2mg/Ml Vial IV 10/14/24 15:29 [id number] PRN Agitation Lorazepam 1 mg 09/14/24 17:05 Lorazepam 2mg/Ml Vial IV 10/14/24 17:14 Q2H PRN Agitation Morphine Sulfate 4 mg 09/14/24 15:30 09/14/24 16:05 Morphine 4mg/Ml Syringe IV 10/14/24 15:29 4 mg [id number] PRN Administration pain Morphine Sulfate 2 mg 09/14/24 17:05 Morphine 2mg/Ml Syringe IV 10/14/24 17:04 Q2HP PRN pain or air hunger Ondansetron HCl 4 mg 09/14/24 16:10 Ondansetron 4mg/2ml Vial IV 10/14/24 16:09 Q8HP PRN nausea Ondansetron HCl 4 mg 09/14/24 17:05 Ondansetron 4mg/2ml Vial IV 10/14/24 17:04 Q8HP PRN Nausea Sodium Chloride 3 ml 09/14/24 13:33 Sodium Chloride 3% 15ml Neb IH 10/14/24 13:32 ONCE PRN INDUCE SPUTUM COLLECTION Sodium Chloride 10 ml 09/14/24 15:30 Sodium Chloride 0.9% 10ml Vial IV 10/14/24 15:29 NEEDED PRN to Dilute Lorazepam inj Sodium Chloride 10 ml 09/14/24 17:05 Sodium Chloride 0.9% 10ml Vial IV 10/14/24 17:04 NEEDED PRN to Dilute Lorazepam inj Discontinued Medications Generic Name Dose Route Start Last Admin Trade Name Freq PRN Reason Stop Dose Admin Epinephrine HCl 1 mg 09/14/24 13:02 09/14/24 14:57 Epinephrine 0.1 Mg/Ml 10ml Syringe (Crash Cart) IV 09/14/24 13:03 1 mg ONCE ONE Administration Fentanyl Citrate 100 mcg 09/14/24 13:17 09/14/24 14:39 Fentanyl 250mcg/5ml Vial IV 09/14/24 13:18 100 mcg ONCE ONE Administration Glycopyrrolate 0.2 mg 09/14/24 15:30 09/14/24 15:50 Glycopyrrolate 0.2 Mg/Ml 1ml Vial IV 09/14/24 15:31 0.2 mg ONCE ONE Administration Fentanyl Citrate 1,000 mcg/ 100 mls @ 1 mls/hr 09/14/24 13:15 09/14/24 16:27 Sodium Chloride IV 10/14/24 13:14 Not Given .Q24H TITO Protocol 10 MCG/HR Midazolam HCl 5 mg 09/14/24 13:31 09/14/24 14:43 Midazolam 5mg/Ml 1ml Vial IV 09/14/24 13:32 Not Given ONCE ONE Midazolam HCl 2 mg 09/14/24 14:09 09/14/24 14:42 Midazolam 2mg/2ml Vial IV 09/14/24 14:10 2 mg ONCE ONE Administration ORDERS Category Date Time Status XR chest portable Stat Exams 09/14/24 13:15 Completed Complete Blood Count Auto Diff Stat Lab 09/14/24 14:06 Completed Comprehensive Metabolic Panel Stat Lab 09/14/24 14:06 Completed PT INR [Prothrombin Time INR] Stat Lab 09/14/24 14:06 Completed PTT [Activated Partial Thrombo Time] Stat Lab 09/14/24 14:06 Completed Trop I [Troponin I] Stat Lab 09/14/24 14:06 Completed Troponin I Q3H Lab 09/14/24 19:30 Ordered Blood Culture Stat Micro 09/14/24 13:56 Received Sputum Culture & Gram Stain Stat Micro 09/14/24 10:11 Received ABG [Arterial Blood Gas] Stat RT 09/14/24 14:12 Completed ECG Data Tracing #1: I reviewed this ECG and interpreted as documented below: Sinus rhythm with a ventricular rate of [address] changes in the setting of recent cardiac arrest, not concerning for STEMI but instead for subendocardial injury related to the cardiac arrest and chest compressions. Normal intervals. ECG initial impression date: 09/14/24 ECG initial impression time: 13:14 Medical Decision Narrative: In summary, this patient is a 68-year-old male presenting to the Emergency Department for evaluation of cardiac arrest. His oxygen tank had reportedly stopped working in the car immediately after I discharged him. Differential diagnoses considered include but are not limited to hypoxic arrest, PE, ACS, FL. Ruling out the most morbid conditions drove assessment. It should be noted patient's history includes lung cancer, chronic respiratory failure, COPD, CHF, atrial fibrillation which are not at goal therapy. This complicates all aspects of care by increasing patient's risk for morbidity. I reviewed patient's past medical records and noted multiple previous evaluations by hospital medicine, pulmonology, and the recent evaluations by myself 2 days ago and today. Patient arrives in cardiac arrest secondary to his portable oxygen failing in the car. He is on hospice, he has DNR/DNI. Family is with him and witnessed his arrest when his oxygen tank failed. Daughter stated I cannot let him go like this, he was just sitting up and talking to us. They understand that he had DNR/DNI and is a hospice patient, but they felt he had more time and could not let go of him in this manner. Given this, they requested that we start CPR/ACLS. We initiated CPR and ACLS and administered epinephrine per protocol. I intubated the patient with a 7-1/2 ET tube. Placement was confirmed with auscultation and end-tidal CO2. After several rounds of chest compressions, family decided they would not want the patient to go through this as he would not want this. Given this, decision was made to abort resuscitation efforts. At that time, it was noted the patient did have a pulse and had an organized rhythm on the monitor. He does have ROSC with stable vitals. Family notified of this. Daughter, son, and at bedside. The patient is starting to wake up and look around. He is blinking to answer questions, he is raising his head up and looking around the room. He is nodding his head and following commands. Workup included stat portable chest x-ray which showed satisfactory placement of ET tube on my independent interpretation. I did not see any large pneumothorax. Please see radiology read for final interpretation. Labs not significantly changed from prior with the exception of mildly worsened anemia and thrombocytopenia. EKG obtained demonstrates subendocardial injury. It read STEMI, but I do not feel this is likely a STEMI in the setting of recent cardiac arrest. Family also advised that they would not want cardiac catheterization or stenting. Ultimately, multiple shared discussions were had with family, hospice nurse also arrived at bedside. Family advised that they would not want to continue life- sustaining measures/life support and they would not want to continue leaving the patient on the ventilator. They want to wait for all of the family to get here to extubate the patient. He was given Versed and fentanyl for sedation and discomfort in the meantime. His blood pressure is low, but after discussion with family, we are in agreement not to start the patient on pressors for further support. Once extended family had arrived, we gave the patient IV glycopyrrolate, turned off sedation, and extubated him. He was successfully expanded to nasal cannula with normal vitals on cardiac telemetry. He complained of some pain, especially in his throat. He was given IV morphine for pain control. At 1610, I signed out care of the patient to Dr. Llamas. <Kong Llamas MD - Last Filed: 09/14/24 17:53> Vital Signs: 09/14/24 13:30 09/14/24 13:31 09/14/24 13:43 Temperature Pulse Rate 67 Respiratory Rate 18 Blood Pressure 131/115 H Blood Pressure Mean 02 Sat by Pulse Oximetry 94 L 92 L Oxygen Delivery Method Mechanical Ventilation Oxygen Flow Rate (LPM) 15 Fraction of Inspired Oxygen 80 09/14/24 14:01 09/14/24 14:02 09/14/24 14:09 Temperature 97.0 F L 97.2 F L Pulse Rate 53 L 54 L 54 L Respiratory Rate 22 22 Blood Pressure 60/36 L 57/38 L 60/38 L Blood Pressure Mean 42 02 Sat by Pulse Oximetry 92 L 93 L 93 L Oxygen Delivery Method Mechanical Ventilation Mechanical Ventilation Mechanical Ventilation Oxygen Flow Rate (LPM) Fraction of Inspired Oxygen 09/14/24 14:30 09/14/24 15:00 09/14/24 15:30 Temperature 97.7 F 97.7 F 98.1 F Pulse Rate 53 L 52 L 53 L Respiratory Rate 22 23 19 Blood Pressure 69/41 L 69/44 L 80/47 L Blood Pressure Mean 02 Sat by Pulse Oximetry 95 98 99 Oxygen Delivery Method Mechanical Ventilation Mechanical Ventilation Mechanical Ventilation Oxygen Flow Rate (LPM) Fraction of Inspired Oxygen 09/14/24 16:00 09/14/24 16:30 09/14/24 17:00 Temperature 98.6 F 98.6 F 98.8 F Pulse Rate 77 100 H 89 Respiratory Rate 24 17 14 Blood Pressure 87/55 L 91/51 L 89/46 L Blood Pressure Mean 02 Sat by Pulse Oximetry 92 L 76 L 81 L Oxygen Delivery Method Mechanical Ventilation Nasal Cannula Nasal Cannula Oxygen Flow Rate (LPM) Fraction of Inspired Oxygen 09/14/24 17:30 Temperature 98.8 F Pulse Rate 80 Respiratory Rate 13 Blood Pressure 84/50 L Blood Pressure Mean 02 Sat by Pulse Oximetry 82 L Oxygen Delivery Method Nasal Cannula Oxygen Flow Rate (LPM) Fraction of Inspired Oxygen Lab Data Lab Results 09/14/24 14:06: WBC 5.2, RBC 3.40 L, Hgb 10.3 L, Hct 32.7 L, MCV 96.2 H, MCH 30.3, MCHC 31.5 L, RDW 15.0, Plt Count 8 L* D, MPV 9.4, Neut % (Auto) 66.9, Lymph % (Auto) 16.9, Charlton % (Auto) 12.9 H, Eos % (Auto) 0.4, Baso % (Auto) 0.4, Neut # (Auto) 3.5, Lymph # (Auto) 0.9, Charlton # (Auto) 0.7, Eos # (Auto) 0.0, Baso # (Auto) 0.0, PT 11.6, INR 1.06, APTT 24.7, Sodium 128 L, Potassium 4.6, C hloride 88 L, Carbon Dioxide 39 H, Anion Gap 5.6, BUN 29 H, Creatinine 0.80 D, Estimated Creat Clear 71, Estimated GFR 96, Est GFR ( Amer) 116 D, G lucose 116 H D, Calcium 8.6, Total Bilirubin 0.8, AST 105 H, ALT 77, Alkaline Phosphatase 65, Troponin I 0.03, Total Protein 5.4 L, Albumin 3.2 L, Globulin 2.2, Albumin/Globulin Ratio 1.5 09/14/24 14:12: Specimen Source Right radial, O2 % 80%, ABG pH 7.39, ABG pCO2 50.4 H, ABG pO2 98.0, ABG HCO3 29.6 H, ABG Total CO2 31.2 H, ABG O2 Saturation 98, ABG Base Excess 4.6 H, Collin Test Patient unable, Vent Rate 22, Tidal Volume 400, PEEP 5 Orders (Tests/Meds): ED MEDICATIONS Generic Name Dose Route Start Last Admin Trade Name Freq PRN Reason Stop Dose Admin Acetaminophen 650 mg 09/14/24 17:05 Acetaminophen 325mg Tab PO 10/14/24 17:04 Q4HP PRN Fever or Mild Pain (1-3) Midazolam/Sodium Chloride 50 mg in 50 mls @ 1.452 mls/hr 09/14/24 13:15 09/14/24 14:56 Midazolam 50 Mg/50 Ml-0.9%Nacl IV 10/14/24 13:14 0.03 mg/kg/hr .Q24H TITO 2 mls/hr Titration Protocol 0.02 MG/KG/HR Fentanyl Citrate 1,000 mcg/ 100 mls @ 2.5 mls/hr 09/14/24 13:30 09/14/24 14:56 Sodium Chloride IV 10/14/24 13:29 25 mcg/hr .Q24H TITO 2.5 mls/hr Titration Protocol 25 MCG/HR Lorazepam 1 mg 09/14/24 15:30 Lorazepam 2mg/Ml Vial IV 10/14/24 15:29 [id number] PRN Agitation Lorazepam 1 mg 09/14/24 17:05 Lorazepam 2mg/Ml Vial IV 10/14/24 17:14 Q2H PRN Agitation Morphine Sulfate 4 mg 09/14/24 15:30 09/14/24 16:05 Morphine 4mg/Ml Syringe IV 10/14/24 15:29 4 mg [id number] PRN Administration pain Morphine Sulfate 2 mg 09/14/24 17:05 Morphine 2mg/Ml Syringe IV 10/14/24 17:04 Q2HP PRN pain or air hunger Ondansetron HCl 4 mg 09/14/24 16:10 Ondansetron 4mg/2ml Vial IV 10/14/24 16:09 Q8HP PRN nausea Ondansetron HCl 4 mg 09/14/24 17:05 Ondansetron 4mg/2ml Vial IV 10/14/24 17:04 Q8HP PRN Nausea Sodium Chloride 3 ml 09/14/24 13:33 Sodium Chloride 3% 15ml Neb IH 10/14/24 13:32 ONCE PRN INDUCE SPUTUM COLLECTION Sodium Chloride 10 ml 09/14/24 15:30 Sodium Chloride 0.9% 10ml Vial IV 10/14/24 15:29 NEEDED PRN to Dilute Lorazepam inj Sodium Chloride 10 ml 09/14/24 17:05 Sodium Chloride 0.9% 10ml Vial IV 10/14/24 17:04 NEEDED PRN to Dilute Lorazepam inj Discontinued Medications Generic Name Dose Route Start Last Admin Trade Name Freq PRN Reason Stop Dose Admin Epinephrine HCl 1 mg 09/14/24 13:02 09/14/24 14:57 Epinephrine 0.1 Mg/Ml 10ml Syringe (Crash Cart) IV 09/14/24 13:03 1 mg ONCE ONE Administration Fentanyl Citrate 100 mcg 09/14/24 13:17 09/14/24 14:39 Fentanyl 250mcg/5ml Vial IV 09/14/24 13:18 100 mcg ONCE ONE Administration Glycopyrrolate 0.2 mg 09/14/24 15:30 09/14/24 15:50 Glycopyrrolate 0.2 Mg/Ml 1ml Vial IV 09/14/24 15:31 0.2 mg ONCE ONE Administration Fentanyl Citrate 1,000 mcg/ 100 mls @ 1 mls/hr 09/14/24 13:15 09/14/24 16:27 Sodium Chloride IV 10/14/24 13:14 Not Given .Q24H TITO Protocol 10 MCG/HR Midazolam HCl 5 mg 09/14/24 13:31 09/14/24 14:43 Midazolam 5mg/Ml 1ml Vial IV 09/14/24 13:32 Not Given ONCE ONE Midazolam HCl 2 mg 09/14/24 14:09 09/14/24 14:42 Midazolam 2mg/2ml Vial IV 09/14/24 14:10 2 mg ONCE ONE Administration ORDERS Category Date Time Status XR chest portable Stat Exams 09/14/24 13:15 Completed Complete Blood Count Auto Diff Stat Lab 09/14/24 14:06 Completed Comprehensive Metabolic Panel Stat Lab 09/14/24 14:06 Completed PT INR [Prothrombin Time INR] Stat Lab 09/14/24 14:06 Completed PTT [Activated Partial Thrombo Time] Stat Lab 09/14/24 14:06 Completed Trop I [Troponin I] Stat Lab 09/14/24 14:06 Completed Troponin I Q3H Lab 09/14/24 19:30 Ordered Blood Culture Stat Micro 09/14/24 13:56 Received Sputum Culture & Gram Stain Stat Micro 09/14/24 10:11 Received ABG [Arterial Blood Gas] Stat RT 09/14/24 14:12 Completed Medical Decision Narrative: In summary, this patient is a 68-year-old male presenting to the Emergency Department for evaluation of cardiac arrest. His oxygen tank had reportedly stopped working in the car immediately after I discharged him. Differential diagnoses considered include but are not limited to hypoxic arrest, PE, ACS, [place]. Ruling out the most morbid conditions drove assessment. It should be noted patient's history includes lung cancer, chronic respiratory failure, COPD, CHF, atrial fibrillation which are not at goal therapy. This complicates all aspects of care by increasing patient's risk for morbidity. I reviewed patient's past medical records and noted multiple previous evaluations by hospital medicine, pulmonology, and the recent evaluations by myself 2 days ago and today. Patient arrives in cardiac arrest secondary to his portable oxygen failing in the car. He is on hospice, he has DNR/DNI. Family is with him and witnessed his arrest when his oxygen tank failed. Daughter stated I cannot let him go like this, he was just sitting up and talking to us. They understand that he had DNR/DNI and is a hospice patient, but they felt he had more time and could not let go of him in this manner. Given this, they requested that we start CPR/ACLS. We initiated CPR and ACLS and administered epinephrine per protocol. I intubated the patient with a 7-1/2 ET tube. Placement was confirmed with auscultation and end-tidal CO2. After several rounds of chest compressions, family decided they would not want the patient to go through this as he would not want this. Given this, decision was made to abort resuscitation efforts. At that time, it was noted the patient did have a pulse and had an organized rhythm on the monitor. He does have ROSC with stable vitals. Family notified of this. Daughter, son, and at bedside. The patient is starting to wake up and look around. He is blinking to answer questions, he is raising his head up and looking around the room. He is nodding his head and following commands. Workup included stat portable chest x-ray which showed satisfactory placement of ET tube on my independent interpretation. I did not see any large pneumothorax. Please see radiology read for final interpretation. Labs not significantly changed from prior with the exception of mildly worsened anemia and thrombocytopenia. EKG obtained demonstrates subendocardial injury. It read STEMI, but I do not feel this is likely a STEMI in the setting of recent cardiac arrest. Family also advised that they would not want cardiac catheterization or stenting. Ultimately, multiple shared discussions were had with family, hospice nurse also arrived at bedside. Family advised that they would not want to continue life- sustaining measures/life support and they would not want to continue leaving the patient on the ventilator. They want to wait for all of the family to get here to extubate the patient. He was given Versed and fentanyl for sedation and discomfort in the meantime. His blood pressure is low, but after discussion with family, we are in agreement not to start the patient on pressors for further support. Once extended family had arrived, we gave the patient IV glycopyrrolate, turned off sedation, and extubated him. He was successfully expanded to nasal cannula with normal vitals on cardiac telemetry. He complained of some pain, especially in his throat. He was given IV morphine for pain control. At 1610, I signed out care of the patient to Dr. Llamas. Kong Llamas MD At my assumption of care, the hospice team had spoken at length with family and decision was made to admit the patient for end-of-life care with hospice inpatient. I discussed this again with Dr. Fang who agreed to admit the patient and he was subsequently admitted. Procedures <Irma Carrasco DO - Last Filed: 09/14/24 17:40> Intubation Time out performed: Yes sedative: none Laryngoscope: Amanda (3, video assisted) ET Tube Size: 7.5 ET Tube Uncuffed: No Tube Secured Depth (cm): 24 Tube Secured Location: lips Tube Placement Confirmation: visualized tube passing through cords, equal breath sounds bilaterally, no breath sounds over epigastrium and confirmation by capnometry Patient Tolerated Procedure: no complications Intubation Complications: none Additional Comments: CPR in progress Critical Care <Irma Carrasco DO - Last Filed: 09/14/24 17:40> Critical Care Time Critical Care Time: Yes Attestation: On 09/14/24, the high probability of a clinically significant, sudden or life threatening deterioration of the following system(s) required my full and direct attention, intervention and personal management. The time I documented below is in addition to time spent performing reported procedures but includes the following listed in this critical care notation. Total Time Total Critical Care Time: 70
[2024-09-14 14:34] LABS: Basophils % 0.4 % (0.1-2.0); Eosinophils % 0.4 % (0.1-12.0); Hematocrit 32.7 % (42.0-52.0); Hemoglobin 10.3 g/dL (14.1-18.0); Lymphocytes # 0.9 K/mm3 (0.7-4.5); Lymphocytes % 16.9 % (10-50); Mean Corpuscular HGB Conc 31.5 g/dL (31.8-35.4); Mean Corpuscular Hemoglobin 30.3 pg (27.0-31.2); Mean Corpuscular Volume 96.2 fl (80-94); Monocytes # 0.7 K/mm3 (0.1-1.0); Monocytes % 12.9 % (1.7-9.3); Neutrophils # 3.5 K/mm3 (1.8-7.8); Neutrophils % 66.9 % (37.0-80.0); White Blood Count 5.2 K/mm3 (4.8-10.8)
[2024-09-14] MEDS: MIDAZOLAM HCL IN 0.9 % NACL/PF 50 MG/50 ML PLAST..BAG IV (14:36)
[2024-09-14 14:39] LABS: Alanine Aminotransferase 77 U/L (12-78); Albumin Level 3.2 g/dl (3.5-5.0); Albumin/Globulin Ratio 1.5 (1.1-1.8); Alkaline Phosphatase 65 U/L (38-126); Anion Gap 5.6 mEq/L (5-15); Aspartate Amino Transferase 105 U/L (17-59); Bilirubin,Total 0.8 mg/dl (0.2-1.3); Blood Urea Nitrogen 29 mg/dl (9-20); Calcium 8.6 mg/dl (8.4-10.2); Carbon Dioxide 39 mmol/L (22.0-30.0); Chloride 88 mmol/L (98-107); Creatinine Clearance Estimated 71 mL/min (50-200); Estimated Glomerular Filt Rate 96 ml/min (>60); GFR (African American) 116 ML/MIN (>60); Globulin 2.2 g/dL (1.3-3.2); Glucose 116 mg/dl (74-100); Potassium 4.6 mmoL/L (3.5-5.1); Sodium 128 mmol/L (136-145); Total Protein,Serum 5.4 g/dl (6.3-8.2)
[2024-09-14] MEDS: FENTANYL 250MCG/5ML VIAL 100 MCG IV (14:39)
[2024-09-14] MEDS: FENTANYL CITRATE/PF 1,000 MCG in 0.9 % SODIUM CHLORIDE 80 ML 2.5 MCG IV (14:39)
[2024-09-14] MEDS: MIDAZOLAM 2MG/2ML VIAL 2 MG IV (14:42)
[2024-09-14 14:44] LABS: Activated Partial Thrombo Time 24.7 seconds (22.5-28.5); INR 1.06 (0.9-1.1); Prothrombin Time 11.6 seconds (9.2-12.1)
--- NOTE | 2024-09-14 14:49 | PC.NURSE ---
platelets 8, aware
[2024-09-14 14:50] LABS: Mean Platelet Volume 9.4 fl (7.4-10.4); Platelet Count 8 K/mm3 (142-424)
[2024-09-14 14:52] LABS: Troponin I 0.03 ng/ml (0.00-0.034)
[2024-09-14] MEDS: EPINEPHrine 0.1 MG/ML 10ML SYRINGE (CRASH CART) 1 MG IV (14:57)
[2024-09-14] MEDS: GLYCOPYRROLATE 0.2 MG/ML 1ML VIAL IV (15:50)
[2024-09-14] MEDS: MORPHINE 4MG/ML SYRINGE 4 MG IV ×2 (16:05→18:14)
--- NOTE | 2024-09-14 17:05 | EXP.HP ---
History of Present Illness *History of present illness: Adapted from ED note: Delonte Medeiros is a 68-year-old male with a history of metastatic lung cancer on hospice for his cancer, COPD now on 5 L nasal cannula (recent eval 2 days ago), paroxysmal atrial fibrillation, hypertension, hyperlipidemia, CAD, CHF presented to the emergency department as cardiac arrest. Patient's daughter is with him and helps provide history. His and son are running in just behind the daughter. I evaluated the patient this morning for shortness of breath. He was in A-fib with RVR but converted after amiodarone by EMS. He felt a lot better with stable workup here, and vitals were reassuring. He seemed to be at his baseline. He ate and drank, hospice came and he spoke with them. They prescribed him home medications to help make him more comfortable. Given the patient was stable and has good home hospice support, shared decision-making was had with the family and patient was discharged to family's care with home hospice. He stood and got himself into the car. They report that in the car, his oxygen tank stopped working and he was not getting enough oxygen. They came in to ask us if we could help, at which point we went up to the vehicle and noted that the patient was not breathing and had no pulse. Daughter, son, and were with him. Patient subsequently went into cardiac arrest, ED provider discussed continuing hospice care versus CPR. at that time wanted to initiate CPR, which was initiated in epinephrine was also given achieving ROSC. Patient was then intubated post ROSC. On my evaluation, patient was intubated and sedated. I spoke to family extensively about patient's goals of care, and ultimately expressed that she wanted to respect her 's wishes of not being intubated. Patient was subsequently extubated, and alert and oriented. BP 89/46, saturating appropriate on nasal cannula. Hospice evaluated patient and recommended inpatient hospice care. As such, patient will be admitted for the same. [facility] Disclaimer: The information contained in this section may have been updated after the patient was seen, as this information can be updated by other users. Medical History PAF (paroxysmal atrial fibrillation) HFrEF (heart failure with reduced ejection fraction) Screening for colon cancer Chronic constipation Acute on chronic respiratory failure with hypoxemia CHF exacerbation Impotence Urine retention Constipation Encopresis Constipation Acute urinary retention Shortness of breath Left breast abscess Dysphagia Constipation Left breast mass History of ASCVD Community acquired pneumonia Acute and chronic respiratory failure with hypoxia Radiation esophagitis Esophageal stricture Pleural effusion on right Acute respiratory failure with hypoxia Acute hypercapnic respiratory failure Acute exacerbation of chronic obstructive pulmonary disease Acute hypoxic on chronic hypercapnic respiratory failure COPD (chronic obstructive pulmonary disease) Olecranon bursitis of right elbow Elbow mass Swelling Hilar lymphadenopathy Allergic rhinitis History of lung or bronchial cancer Mediastinal lymphadenopathy History of esophageal dilatation Sinusitis Gynecomastia Discharge from left nipple COPD (chronic obstructive pulmonary disease) Dyspnea on exertion Malignant neoplasm of unspecified part of unspecified bronchus or lung Pulmonary emphysema Smoking greater than 30 pack years Lung nodule Tobacco abuse counseling HAP (hospital-acquired pneumonia) Influenza A Acute on chronic respiratory failure with hypoxia and hypercapnia Urinary tract infection Tobacco abuse AAA (abdominal aortic aneurysm) Melanoma Thyroid disease Sinus problem History of radiation therapy History of chemotherapy Cataract Myocardial infarction Lung disease DVT (deep venous thrombosis) Cancer Atherosclerotic heart disease Hypotension HLD (hyperlipidemia) Abnormal EKG CAD (coronary artery disease) CHF (congestive heart failure) Gout Tobacco abuse disorder Hypertension Hypothyroidism COPD exacerbation Surgical History H/O melanoma excision History of heart artery stent History of cardiac cath History of colonoscopy Family History Other AAA (abdominal aortic aneurysm) Coronary artery disease Gout Heart attack Hypertension Social History (Updated 09/14/24 @ 17:22 by Michelle Redd RN) Smoking Status: Former smoker tobacco type: cigarettes packs per day: 1 smoking status stop date: 2023 alcohol intake: former substance use type: denies use 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ional status: retired and disabled Travel in the last 8 weeks: None household members: spouse housing: house lives independently: No marital status: education level: high school service: No correction: No caffeine: No special honey needs: No agree to transfusion: No do you feel safe at home: Yes victim of physical abuse: No victim of emotional abuse: No victim of sexual abuse: No would you like helpful sources: No Other Medical History Have you received the Flu Vaccine for this season: No Have you received the Pneumonia Vaccine: Yes Meds Home Medications and Allergies Home Medications ?Medication ?Instructions ?Recorded ?Confirmed ?Type alfuzosin 10 mg tablet,extended 10 mg PO DAILY 90 days #90 tabs 12/25/23 09/14/24 Rx release 24 hr levothyroxine 150 mcg tablet 150 mcg PO DAILY #90 tabs 06/18/24 09/14/24 Rx potassium chloride 20 mEq 20 meq PO DAILY #90 tabs 06/18/24 09/14/24 Rx tablet,extended release lovastatin 40 mg tablet 40 mg PO HS 30 days #30 tabs 06/24/24 09/14/24 Rx aspirin 81 mg chewable tablet 81 mg PO DAILY 07/28/24 09/14/24 History docusate sodium 100 mg capsule 100 mg PO DAILY 07/28/24 09/14/24 History fluticasone fur. 100 mcg-umeclid 1 inh inhalation DAILY 07/28/24 09/14/24 History 62.5 mcg-vilant 25 mcg inhalat.powder (Trelegy Ellipta) midodrine 2.5 mg tablet 2.5 mg PO TID #90 tabs 07/30/24 09/14/24 Rx allopurinol 300 mg tablet 300 mg PO DAILY 90 days #90 tabs 08/12/24 09/14/24 Rx azelastine 137 mcg (0.1 %) nasal 137 mcg intranasal DAILY 08/15/24 09/14/24 History spray metoprolol tartrate 50 mg tablet 50 mg PO BID #60 tabs 08/15/24 09/14/24 Rx albuterol sulfate 0.63 mg/3 mL 0.63 mg inhalation QIDP PRN 09/12/24 09/14/24 History solution for nebulization shortness of breath or wheezing bumetanide 0.5 mg tablet 0.5 mg PO DAILYP PRN dyspnea 09/12/24 09/14/24 History dexamethasone 4 mg tablet 4 mg PO DAILY 09/12/24 09/14/24 History empagliflozin 10 mg tablet 10 mg PO DAILY #30 tabs 09/12/24 09/14/24 Rx (Jardiance) levofloxacin 750 mg tablet 750 mg PO DAILY 7 days #7 tabs 09/12/24 09/14/24 Rx New Prescriptions to Start Prescriptions: Allergies Allergy/AdvReac Type Severity Reaction Status Date / Time No Known Drug Allergies Allergy Unknown Unknown Verified 09/12/24 11:18 (NKDA) allergy reaction Exam Data for Last 24 hours Vital signs and Labs for Last 24 Hours: Temp Pulse Resp BP Pulse Ox O2 Del Method O2 Flow Rate 98.8 F 89 14 89/46 L 81 L Nasal Cannula 15 09/14/24 17:00 09/14/24 17:00 09/14/24 17:00 09/14/24 17:00 09/14/24 17:00 09/14/24 17:00 09/14/24 13:43 FiO2 80 09/14/24 13:30 Laboratory Results - last 24 hr 09/14/24 14:06: WBC 5.2, RBC 3.40 L, Hgb 10.3 L, Hct 32.7 L, MCV 96.2 H, MCH 30.3, MCHC 31.5 L, RDW 15.0, Plt Count 8 L* D, MPV 9.4, Neut % (Auto) 66.9, Lymph % (Auto) 16.9, [place] % (Auto) 12.9 H, Eos % (Auto) 0.4, Baso % (Auto) 0.4, Neut # (Auto) 3.5, Lymph # (Auto) 0.9, [place] # (Auto) 0.7, Eos # (Auto) 0.0, Baso # (Auto) 0.0, PT 11.6, INR 1.06, APTT 24.7, Sodium 128 L, Potassium 4.6, Chloride 88 L, Carbon Dioxide 39 H, Anion Gap 5.6, BUN 29 H, Creatinine 0.80 D, Estimated Creat Clear 71, Estimated GFR 96, Est GFR ( Amer) 116 D, Glucose 116 H D, Calcium 8.6, Total Bilirubin 0.8, AST 105 H, ALT 77, Alkaline Phosphatase 65, Troponin I 0.03, Total Protein 5.4 L, Albumin 3.2 L, Globulin 2.2, Albumin/Globulin Ratio 1.5 09/14/24 14:12: Specimen Source Right radial, O2 % 80%, ABG pH 7.39, ABG pCO2 50.4 H, ABG pO2 98.0, ABG HCO3 29.6 H, ABG Total CO2 31.2 H, ABG O2 Saturation 98, ABG Base Excess 4.6 H, Collin Test Patient unable, Vent Rate 22, Tidal Volume 400, PEEP 5 I & O for Last 24 hours: Intake & Output 09/11/24 09/12/24 09/13/24 09/14/24 23:59 23:59 23:59 23:59 Intake Total .191 / 191 Balance . / Weight 72.575 kg Constitutional Constitutional: no acute distress *Routine HEENT Exam Head: Present normocephalic Eye: Present EOMI and PERRL ENT: Present mucous membranes moist *Routine Neck Exam Neck: Present supple; Absent lymphadenopathy *Routine Respiratory Exam Respiratory: Present CTA bilaterally *Routine Cardiovascular Exam Cardiovascular: Present RRR *Routine Abdominal Exam Abdominal: Present soft and normoactive bowel sounds; Absent tenderness *Routine Rectal Exam Rectal:: deferred *Routine Genitalia Exam Genitalia:: deferred *Routine Extremities Exam Extremities: Absent cyanosis, clubbing or edema *Routine Skin Exam Skin: Present warm; Absent rash *Routine Neurological Exam Neurological: Present alert Assessment and Plan *Assessment and plan (1) Cardiac arrest: Status: Acute Category: Medical Code(s): I46.9 - Cardiac arrest, cause unspecified Plan Delonte Medeiros is a 76-year-old male with a medical history significant for end-stage metastatic lung cancer, end-stage COPD who will be admitted after cardiac arrest, CPR with ROSC, s/p intubation and extubation for inpatient hospice care. #Comfort care #End-stage metastatic lung cancer #End-stage COPD ? Unfortunately, patient's condition has deteriorated over the past few months in light of his metastatic lung cancer. He has been in the hospital several times, last of which being a few days ago for increased shortness of breath and was found to have bilateral pleural effusions and pneumonia. He was discharged with antibiotics and diuretics and continued on hospice care. ? After extensive conversation with about goals of care, she wanted to respect patient's wishes of not being intubated. Patient was successfully extubated and patient is more or less alert and oriented. ? Hospice care consulted, recommended inpatient hospice. ? Morphine, Ativan, look up related as needed.
--- NOTE | 2024-09-14 17:09 | PC.NURSE ---
report called to ulices on second floor
--- NOTE | 2024-09-14 17:53 | PC.NURSE ---
arrived by stretcher from ED
--- NOTE | 2024-09-14 22:05 | PC.NURSE ---
Went in to check on patient and family, patient awoke to voice, did not speak, looked around. Did not seem in any distress at this time
[2024-09-14] MEDS: MORPHINE 2MG/ML SYRINGE 2 MG IV (23:53)
[2024-09-15 04:00] VITALS: BMI 26.6
--- NOTE | 2024-09-15 06:23 | PC.NURSE ---
Family remains at bedside. Patient at beginning of shift would open eyes when spoke to but no verbal response. Patient has rested. family noted he did get a little uncomfortable moving around, treated per MAR. Patient has since rested. Armstrong in place.
[2024-09-15] MEDS: MORPHINE 2MG/ML SYRINGE 2 MG IV (08:23)
[2024-09-15] MEDS: GLYCOPYRROLATE 0.2 MG/ML 1ML VIAL 0.3 MG IV (08:27)
--- NOTE | 2024-09-15 12:17 | PC.NURSE ---
tod [id number]
--- NOTE | 2024-09-15 12:34 | P.DN_ITS ---
Pronouncement Note Date and Time of Date of : 09/15/24 Time of : 11:55 PCOD Preliminary cause of : Cancer of right lung Contributing Factors (1) Cardiac arrest: Summary Additional details: Delonte Medeiros is a 76-year-old male with a medical history significant for end- stage metastatic lung cancer, end-stage COPD who will be admitted after cardiac arrest, CPR with ROSC, s/p intubation and extubation for inpatient hospice care. #Comfort care #End-stage metastatic lung cancer #End-stage COPD ? Unfortunately, patient's condition has deteriorated over the past few months in light of his metastatic lung cancer. He has been in the hospital several times, last of which being a few days ago for increased shortness of breath and was found to have bilateral pleural effusions and pneumonia. He was discharged with antibiotics and diuretics and continued on hospice care. ? After extensive conversation with about goals of care, she wanted to respect patient's wishes of not being intubated. Patient was successfully extubated and patient is more or less alert and oriented. ? Hospice care consulted, recommended inpatient hospice. ? Morphine, Ativan, look up related as needed. Additional Data Confirmation of : no pulse Family: at bedside Attending/PCP notified?: Yes Attending physician: Nikos Otero MD Was code activated?: No Autopsy should be considered if:: Unknown or unanticipated medical complications Cause is not known with certainty on clinical grounds Would allay concerns of the public/family regarding Unexplained/unexpected apparently natural and not subject to a forensic medical jurisdiction DOA Within 24 hours of admission Sustained or apparently sustained injury while in the hospital Result of high risk, infectious and contagious disease Obstetric and pediatric arising from environmental or occupational hazard Unexplained/unexpected from dental, medical, or surgical diagnostic procedures and/or therapies Would disclose a known or suspected illness which also may have a bearing on survivors or recipients of transplanted organs Autopsy requested?: No Does not meet criteria marine insurance claim examiner notified?: Yes
--- NOTE | 2024-09-15 15:41 | PC.NURSE ---
notified daughter that [facility] has picked up Delonte
== END 2024-09-15 15:17 | disposition expired | DRG 296 ==
LOC: ER 16:19 → 2ND 16:51
PROVIDERS: Emergency Medicine; Admitting Provider Student in an Organized Health Care Education/Training Program; Emergency Provider Student in an Organized Health Care Education/Training Program; PCP Family Medicine; Visit Provider Student in an Organized Health Care Education/Training Program
DX: I46.9 Cardiac arrest, cause unspecified (principal); J96.21 Acute and chronic respiratory failure with hypoxia; I50.20 Unspecified systolic (congestive) heart failure; C34.11 Malignant neoplasm of upper lobe, right bronchus or lung; C79.89 Secondary malignant neoplasm of other specified sites; I48.0 Paroxysmal atrial fibrillation; Z99.81 Dependence on supplemental oxygen; I11.0 Hypertensive heart disease with heart failure; I25.10 Atherosclerotic heart disease of native coronary artery without angina pectoris; E78.5 Hyperlipidemia, unspecified; J44.9 Chronic obstructive pulmonary disease, unspecified; Z87.891 Personal history of nicotine dependence; Z95.5 Presence of coronary angioplasty implant and graft; Z79.899 Other long term (current) drug therapy; Z79.51 Long term (current) use of inhaled steroids; Z79.82 Long term (current) use of aspirin; Z79.84 Long term (current) use of oral hypoglycemic drugs; Z51.5 Encounter for palliative care
CPT/HCPCS: 71045; 80053; 82803; 84484; 85025; 85610; 85730; 87040; 87070; 87205; 92950; 93005; 99291; J0171; J1596; J2250; J2270; J3010